=== PATIENT | male | born 1945 | race American Indian/Alaskan Native ===

== ENCOUNTER 2019-04-17 18:39 | Emergency (ER) | payer MEDICARE, OTHER ==
[~2019-04-17] VITALS: Ht 170.2 cm; Wt 91.2 kg
--- OUTSIDE RECORDS SUMMARY | ~2019-04-17 | XMS | Encounter Summary ---
Demographics + + + | Address | [address] | | | [place] [address] | + + + | Home Phone | | + + + | Preferred Language | Unknown | + + + | Marital Status | Single | + + + | Alevism Affiliation | 1041 | + + + | Race | Unknown | + + + | Ethnic Group | Unknown | + + + Author + + + | Author | [facility] | | | and [place] | + + + | Organization | [facility] | | | and [place] | + + + | Address | Unknown | + + + | Phone | Unavailable | + + + Support + + +---------+ + | Name | Relationship | Address | Phone | + + +---------+ + | Guy Bell | ECON | Unknown | | + + +---------+ + Care Team Providers + +------+ + | Care It Systems Administrator Name | Role | Phone | + +------+ + | Dominic Carlin MD | PCP | | + +------+ + Reason for Referral Diagnostic/Screening (Routine) +--------+--------+ + + + + | Status | Reason | Specialty | Diagnoses / | Referred By | Referred To | | | | | Procedures | Contact | Contact | +--------+--------+ + + + + | Closed | | Radiology | Diagnoses | Wes Melvin | [facility] | | | | | Cervical | MD [address] | [address] | | | | | spondylosis | [address] | [place], | | | | | with | [place], | [place] | | | | | myelopathy | [place] [address] | [address] | | | | | Cervical | Phone: | Phone: | | | | | cord | [phone] | [phone] | | | | | myelomalacia | Fax: | Fax: | | | | | (HCC) | [phone] | [phone] | | | | | Degenerative | | | | | | | disc | | | | | | | disease, | | | | | | | cervical | | | | | | | Procedures | | | | | | | MRI Cervical | | | | | | | Spine wo | | | | | | | Contrast | | | +--------+--------+ + + + + Reason for Visit Diagnostic/Screening (Routine) +--------+--------+ + + + + | Status | Reason | Specialty | Diagnoses / | Referred By | Referred To | | | | | Procedures | Contact | Contact | +--------+--------+ + + + + | Closed | | Radiology | Diagnoses | Wes Melvin | [facility] | | | | | Cervical | MD [address] | [address] | | | | | spondylosis | [address] | [place], | | | | | with | [facility], | [place] | | | | | myelopathy | [place] [address] | [address] | | | | | Cervical | Phone: | Phone: | | | | | cord | [phone] | [phone] | | | | | myelomalacia | Fax: | Fax: | | | | | ([facility]) | [phone] | [phone] | | | | | Degenerative | | | | | | | disc | | | | | | | disease, | | | | | | | cervical | | | | | | | Procedures | | | | | | | MRI Cervical | | | | | | | Spine wo | | | | | | | Contrast | | | +--------+--------+ + + + + Encounter Details +--------+ + + + + | Date | Type | Department | Care Team | Description | +--------+ + + + + | 01/30/ | Hospital | [facility] | Wes Melvin MD | Cervical spondylosis | | 2013 | Encounter | MED CTR MRI [address] | with myelopathy; | | | | [place], | [place] [address] | Cervical cord | | | | [place] [address] | [phone] | myelomalacia ([facility]); | | | | [phone] | | Degenerative disc | | | | | | disease, cervical | +--------+ + + + + Social [...] +---------+ + | Yes | | | Moderately | + + +---------+ + + + + | Sex Assigned at | Date Recorded | | | | + + + | Not on file | | + + + + + + + | Job Start Date | Occupation | Industry | + + + + | Not on file | Not on file | Not on file | + + + + + + + + | Travel History | Travel Start | Travel End | + + + + + + | No recent travel history available. | + + documented as of this encounter Medications at Time of Discharge + + + +---------+--------+ + | Medication | Sig | Dispensed | Refills | Start | End Date | | | | | | Date | | + + + +---------+--------+ + | ibuprofen (ADVIL, | Take 400 mg by mouth | | 0 | | | | MOTRIN) 400 mg | every 6 hours as | | | | 5 | | tablet | needed. | | | | | + + + +---------+--------+ + documented as of this encounter Plan of Treatment Not on filedocumented as of this encounter Procedures + +--------+ + + + | Procedure Name | Priori | Date/Time | Associated Diagnosis | Comments | | | ty | | | | + +--------+ + + + | MRI CERVICAL SPINE | Routin | 01/30/2014 | Cervical | Results for this | | WO CONTRAST | e | 4:02 PM | spondylosis with | procedure are in the | | | | PDT | myelopathy Cervical | results section. | | | | | cord myelomalacia | | | | | | (HCC) Degenerative | | | | | | disc disease, | | | | | | cervical | | + +--------+ + + + documented in this encounter Results MRI Cervical Spine wo Contrast (01/30/2014 4:02 PM PDT) + + | Specimen | + + | | + + + + + | Narrative | Performed At | + + + | MRI CERVICAL SPINE WITHOUT CONTRAST: 01/30/2014 3:32 PM CLINICAL | [facility] | | HISTORY: Cervical myelopathy COMPARISON: 05/16/2013 TECHNIQUE: | LAB | | Multiplanar, multisequence imaging of the cervical spine is | | | performed. FINDINGS:Mild reversal of the normal cervical lordotic | | | curve. Minimal anterolisthesis of C3 on C4 and retrolisthesis of C4 | | | on C5 with no other focal loss of alignment. Vertebral body heights | | | are normal. Large anterior osteophytes are present, increasing | | | anterior to posterior dimension of C4, C5 and C6. Chronic reactive | | | endplate changes at C4-C5. Stable hemangioma in T2. No other areas of | | | abnormal marrow signal. High signal focus in the cervical cord at | | | C5. This is unchanged from prior. No new areas of cord signal | | | abnormality. Included posterior fossa contents are unremarkable. No | | | adjacent soft tissue abnormality. Level by level analysis follows. | | | C2-C3: Severe left facet generative change and hypertrophy producing | | | left foraminal narrowing, stable from prior. No disc herniation. | | | C3-C4: Moderate broad-based disc bulge with posterior osteophytic | | | ridging and uncinate hypertrophy. Moderate posterior facet | | | degenerative changes. This disc osteophyte complex produces | | | moderately severe central canal stenosis (7-8mm). Appearances are | | | similar to prior. C4-C5: Severe disc space narrowing with | | | posterior osteophytic ridging and uncinate hypertrophy. Moderate | | | facet degenerative change. Minimal disc contribution, but the | | | spondylitic changes produce a severe central canal stenosis with | | | bilateral severe foraminal narrowing. No change from prior. C5-C6: | | | Disc space narrowing with small broad-based disc bulge. Bilateral | | | uncinate hypertrophy left greater than right. Moderate facet | | | degenerative change. These features combine to produce moderately | | | severe central canal stenosis and severe left foraminal narrowing | | | with moderate narrowing on the right. Left foraminal narrowing | | | appears more severe than on the prior study though this may be partly | | | technique related. C6-C7: Moderate broad-based disc bulge and | | | uncinate hypertrophy left greater than right. No central canal | | | stenosis but moderately severe bilateral foraminal narrowing, more | | | severe on the left. C7-T1: Disc space narrowing with moderate | | | broad-based disc bulge and uncinate hypertrophy. No central canal | | | stenosis. Moderate right foraminal narrowing. Broad-based disc | | | bulges are also seen at T1-T2 and T2-T3, without central canal | | | compromise IMPRESSION - 1. Stable focus of myelopathic signal | | | change in the cervical cord at the C5 level. 2. Multilevel | | | degenerative disc and spondylitic changes. These are most severe at | | | C4-C5 where severe central canal stenosis and bilateral severe | | | foraminal narrowing are present. Severe foraminal narrowing on the | | | left at C5-C6 and bilaterally at C6-C7. Overall appearances are | | | stable when compared to prior. Dictated and Signed by: Yash Esteban MD Electronically signed: 01/31/2014 9:28 AM | | + + + + + | Procedure Note | + + | [place], Rad Results In - 01/31/2014 9:31 AM PDT MRI CERVICAL SPINE WITHOUT CONTRAST: | | 01/30/2014 3:32 PMCLINICAL HISTORY: Cervical myelopathyCOMPARISON: 05/16/2013TECHNIQUE: | | Multiplanar, multisequence imaging of the cervical spine isperformed.FINDINGS:Mild | | reversal of the normal cervical lordotic curve. Minimalanterolisthesis of C3 on C4 and | | retrolisthesis of C4 on C5 with no other focalloss of alignment. Vertebral body heights | | are normal. Large anterior osteophytesare present, increasing anterior to posterior | | dimension of C4, C5 and C6.Chronic reactive endplate changes at C4-C5. Stable hemangioma | | in T2. No otherareas of abnormal marrow signal.High signal focus in the cervical cord | | at C5. This is unchanged from prior. Nonew areas of cord signal abnormality. Included | | posterior fossa contents areunremarkable. No adjacent soft tissue abnormality. Level by | | level analysisfollows.C2-C3: Severe left facet generative change and hypertrophy | | producing leftforaminal narrowing, stable from prior. No disc herniation.C3-C4: Moderate | | broad-based disc bulge with posterior osteophytic ridging anduncinate hypertrophy. | | Moderate posterior facet degenerative changes. This discosteophyte complex produces | | moderately severe central canal stenosis (7-8mm).Appearances are similar to prior.C4-C5: | | Severe disc space narrowing with posterior osteophytic ridging anduncinate hypertrophy. | | Moderate facet degenerative change. Minimal disccontribution, but the spondylitic | | changes produce a severe central canalstenosis with bilateral severe foraminal | | narrowing. No change from prior.C5-C6: Disc space narrowing with small broad-based disc | | bulge. Bilateraluncinate hypertrophy left greater than right. Moderate facet | | degenerativechange. These features combine to produce moderately severe central | | canalstenosis and severe left foraminal narrowing with moderate narrowing on theright. | | Left foraminal narrowing appears more severe than on the prior studythough this may be | | partly technique related.C6-C7: Moderate broad-based disc bulge and uncinate hypertrophy | | left greaterthan right. No central canal stenosis but moderately severe bilateral | | foraminalnarrowing, more severe on the left.C7-T1: Disc space narrowing with moderate | | broad-based disc bulge and uncinatehypertrophy. No central canal stenosis. Moderate | | right foraminal narrowing.Broad-based disc bulges are also seen at T1-T2 and T2-T3, | | without central canalcompromiseIMPRESSION -1. Stable focus of myelopathic signal change | | in the cervical cord at the Z6wrbyp.2. Multilevel degenerative disc and spondylitic | | changes. These are most severeat C4-C5 where severe central canal stenosis and bilateral | | severe foraminalnarrowing are present. Severe foraminal narrowing on the left at C5-C6 | | andbilaterally at C6-C7. Overall appearances are stable when compared to prior.Dictated | | and Signed by: Yash Esteban MD Electronically signed: 01/31/2014 9:28 AM | |C5-C6: Disc space narrowing with small broad-based disc bulge. Bilateral | |uncinate hypertrophy left greater than right. Moderate facet degenerative | |change. These features combine to produce moderately severe central canal | |stenosis and severe left foraminal narrowing with moderate narrowing on the | |right. Left foraminal narrowing appears more severe than on the prior study | |though this may be partly technique related. | | | |C6-C7: Moderate broad-based disc bulge and uncinate hypertrophy left greater | |than right. No central canal stenosis but moderately severe bilateral foraminal | |narrowing, more severe on the left. | | | |C7-T1: Disc space narrowing with moderate broad-based disc bulge and uncinate | |hypertrophy. No central canal stenosis. Moderate right foraminal narrowing. | | | |Broad-based disc bulges are also seen at T1-T2 and T2-T3, without central canal | |compromise | | | |IMPRESSION - | |1. Stable focus of myelopathic signal change in the cervical cord at the C5 | |level. | | | |2. Multilevel degenerative disc and spondylitic changes. These are most severe | |at C4-C5 where severe central canal stenosis and bilateral severe foraminal | |narrowing are present. Severe foraminal narrowing on the left at C5-C6 and | |bilaterally at C6-C7. Overall appearances are stable when compared to prior. | | | |Dictated and Signed by: Yash Esteban MD | | Electronically signed: 01/31/2014 9:28 AM | + + + +---------+ + + | Performing | Address | City/State/Zipcode | Phone Number | | Organization | | | | + +---------+ + + | [facility] | | | [phone] | + +---------+ + + | [facility] | | | [phone] | + +---------+ + + documented in this encounter Visit Diagnoses + + | Diagnosis | + + | Cervical spondylosis with myelopathy | + + | Cervical cord myelomalacia (HCC) Other myelopathy | + + | Degenerative disc disease, cervical Degeneration of cervical intervertebral disc | + + documented in this encounter"
--- OUTSIDE RECORDS SUMMARY | ~2019-04-17 | XMS | Encounter Summary ---
Demographics + + + | Address | [address] | | | [place] [address] | + + + | Home Phone | | + + + | Preferred Language | Unknown | + + + | Marital Status | Single | + + + | Protestant Affiliation | Unknown | + + + | Race | or | + + + | Ethnic Group | Not or | + + + Author + + + | Author | [facility] | + + + | Organization | [facility] | + + + | Address | Unknown | + + + | Phone | Unavailable | + + + Support + + +---------+ + | Name | Relationship | Address | Phone | + + +---------+ + | Gautam Ray | ECON | Unknown | | + + +---------+ + Care Team Providers + +------+ + | Care Nurse Intern Name | Role | Phone | + +------+ + PCP | Unavailable | + +------+ + Reason for Visit + + + | Reason | Comments | + + + | Return Patient | left shoulder | + + + Consultation (Routine) +--------+--------+ + + + + | Status | Reason | Specialty | Diagnoses / | Referred By | Referred To | | | | | Procedures | Contact | Contact | +--------+--------+ + + + + | Closed | | Orthopedics | | Non-[facility] | [place], | | | | | | Epic Dept | MD Jaswant | | | | | | | [address] | | | | | | | [address] | | | | | | | [place], | | | | | | | [place] | | | | | | | [address] | | | | | | | Phone: | | | | | | | [phone] | | | | | | | Fax: | | | | | | | [phone] | +--------+--------+ + + + + Encounter Details +--------+---------+ + + + | Date | Type | Department | Care Team | Description | +--------+---------+ + + + | 06/14/ | Office | Orthopaedics at | Jaswant Angeles MD | Unspecified | | 2008 | Visit | [facility] [address] | [address] | Disorders of Bursae | | | | Ave Mailcode: CH[address]A | [address] | and Tendons in | | | | [facility] | [place], [place] | Shoulder Region; | | | | and Healing, | [address] | Radicular Syndrome | | | | Building | [phone] | of Upper Limbs | | | | Floor [place], [place] | | | | | | [address] | | | | | | [phone] | | | +--------+---------+ + + + Social History [...] documented as of this encounter Progress Notes Jaswant Angeles MD - 07/03/2008 5:05 PM PSTThis patient returns for follow-up of his left deltoid dysfunction. His nerve conduction studies suggest a cervical radiculopathy over an axillary neuropathy. An MRI was reviewed and was interpreted as showing 1. Multilevel degenerative changes of the cervical spine are present which are worst at C4-C5 where there is moderate to severe spinal canal stenosis and a small amount of cord signal in the cervical cord just inferior to the stenosis. The spinal canal appears congenitally small which contributes to mild narrowing throughout. 2. Diffuse left greater than right neural foraminal narrowing is present which is largely secondary to left-sided greater than right sided uncal vertebral joint hypertrophy. I discussed his case with Dr Cueva who saw him on May 29. He agreed to see the patient back for another assessment as I really think that his neck is a more likely source of his probl ems than a peripheral axilllary nerve injury. I will be happy to see him back in concert wi or following Dr Cueva. An MRI of the shoulder was also ordered to evaluate for a rotator cuff tear. 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
--- OUTSIDE RECORDS SUMMARY | ~2019-04-17 | XMS | Encounter Summary ---
Demographics + + + | Address | [address] | | | [place] [address] | + + + | Home Phone | | + + + | Preferred Language | Unknown | + + + | Marital Status | Single | + + + | Congregational Affiliation | 1041 | + + + | Race | Unknown | + + + | Ethnic Group | Unknown | + + + Author + + + | Author | [facility] | | | and [place] | + + + | Organization | [facility] | | | and [...] Team Providers + +------+ + | Care Winder Tender Name | Role | Phone | + +------+ + PCP | Unavailable | + +------+ + Encounter Details +--------+ + + + + | Date | Type | Department | Care Team | Description | +--------+ + + + + | 08/31/ | Hospital | [facility] | Joe, | Unspecified Backache | | 2009 | Encounter | [address] | MD Nell [address] | | | [address] | [facility] | | | | | [place], [place] | [address] [place], | | | | | [address] | [place] [address] | | | | | [phone] | [phone] | | | | | | | [...] Performed At | + + + | [id number] [facility] | | | [facility] [address] | | | , RADIOLOGY | | | Patient Name: ISA OSMAN Date of : 1945 | | | Medical Record: [id number] Account: [id number] O/P// | | | Exam Date/Time: 08/31/2009 04:15 P Ordering | | | Provider: NELL MUSE Detail: 1430 / / [facility] Exam | | | Description: MRI LUMBAR [...] exiting right L1 nerve root. There is cnvx-fn-jwjvsbtw left neural | | | foraminal narrowing. [...] lateral | | | recesses. There is bmgapsqq-hm-rwmnut right and severe left neural | | [...] | bilateral L4 nerve roots. There is hhbaeupc-mt-fnwjjj left and severe | | | right [...] AP dimension. There is severe left and gujlrrks-rr-jqbbdn right | | | neural foraminal narrowing that is likely impinging on the exiting | | | bilateral L4 nerve roots. L5-S1: There is disk desiccation with | | | wajpnroa-gq-hhqdxp disk space narrowing and associated degenerative | [...] greatest on the left side. There is vvjvlqwb-ts-ebgfie right | | | with severe left [...] and L5 nerve roots. 3. Please see vyyjg-sq-jqkhq | | | discussion above. Read by AURDA WILKINS DO | | | 09/02/2009 11:17 A Electronically Signed by AUDRA WILKINS DO | | | 09/02/2009 09:09 P A | | | 04:03 P BALBINA/brisa/[id number]/ cc: MD AUDRA PAIGE | | | DO [place] | | + + + + + | Procedure Note | + + | [place], Rad Conversion - 01/08/2019 4:40 PM PDT | | [id number] | | [facility] | | [facility] [address] | | , | | RADIOLOGY | | | | Patient Name: ISA OSMAN | | Date of : 1945 | | Medical Record: [id number] | | Account: [id number] | | O/P// | | | | | | Exam Date/Time: 08/31/2009 04:15 P | | Ordering Provider: NELL MUSE | | Order Detail: 1430 / [...] exiting right L1 nerve root. There is xsqt-ty-cbkvovkz left neural | | foraminal narrowing. | [...] narrowing of both lateral recesses. There is guixikue-oo-texcjn right | | and severe left neural [...] L4 nerve roots. There is | | luqdthom-ee-bubgwn left and severe right neural foraminal narrowing [...] AP dimension. There is severe left and ctzdgwgp-ud-dlilef right | | neural foraminal narrowing that is likely impinging on the exiting | | bilateral L4 nerve roots. | | | | L5-S1: There is disk desiccation with pvztboae-ol-nyabpw disk space | | narrowing and associated [...] greatest on the left side. There is eeyeyyaq-sl-xkjpbe | | right with severe left neural [...] nerve roots. | | 3. Please see alktx-uq-dvbnw discussion above. | | | | | | | | | | | | | | Read by | | AUDRA WILKINS DO 09/02/2009 11:17 A | | Electronically Signed by | | AUDRA WILKINS DO 09/02/2009 09:09 P | | | | A | | P | | BALBINA/[email or web address]/[id number]/ | | cc: NELL MUSE MD | | AUDRA WILKINS DO | + + documented in this encounter Visit Diagnoses + + | Diagnosis | + + | Backache, unspecified | + + documented in this encounter"
--- OUTSIDE RECORDS SUMMARY | ~2019-04-17 | XMS | Encounter Summary ---
Demographics + + + | Address | [address] | | | [place] [address] | + + + | Home Phone | | + + + | Preferred Language | Unknown | + + + | Marital Status | Single | + + + | Restorationism Affiliation | 1041 | + + + | Race | Unknown | + + + | Ethnic Group | Unknown | + + + Author + + + | Author | [facility] | | | and [place] | + + + | Organization | [facility] | | | and [place] [...] Team Providers + +------+ + | Care Environmental Geologist Name | Role | Phone | + +------+ + | Dominic Carlin MD | PCP | | + +------+ + Encounter Details +--------+ + + + + | Date | Type | Department | Care Team | Description | +--------+ + + + + | 12/22/ | Orders Only | [facility] | Provider, | | | 2018 | | [facility] GENER[facility] OP | MD [address] | | | | | [address] | [address] | | | | | [address] [place], [place] | [place] [address] | | | | | [address] | | | | | | [phone] | | | +--------+ + + + [...]
--- OUTSIDE RECORDS SUMMARY | ~2019-04-17 | XMS | Encounter Summary ---
Demographics + + + | Address | [address] | | | [place] [address] | + + + | Home Phone [...] | Organization | [facility] | | | and [place] [...] Team Providers + +------+ + | Care Production Worker Name | Role | Phone | + +------+ + | Dominic Carlin MD | PCP | | + +------+ + Reason for Visit + + + | Reason | Comments | + + + | Medication Refill | | + + + Encounter Details +--------+--------+ + + + | Date | Type | Department | Care Team | Description | +--------+--------+ + + + | 07/03/ | Refill | [facility] [place] | Haroldo King | Medication Refill | | 2015 | | NEUROSURGERY [address] | [address] | | | | | [address] | [address] | | | | | [place], [place] | [place] [address] | | | | | [address] | [phone] | | | | | [phone] | | | +--------+--------+ + + + Social History + +-------+ [...] filedocumented as of this encounter Visit Diagnoses + + | Diagnosis | + + | S/P cervical spinal fusion - Primary Arthrodesis status | + + documented in this encounter"
--- OUTSIDE RECORDS SUMMARY | ~2019-04-17 | XMS | Encounter Summary ---
Demographics + + + | Address | [address] | | | [place] [address] | + + + | Home Phone | | + + + | Preferred Language | Unknown | + + + | Marital Status | Single | + + + | Gnosticism Affiliation | Unknown | + + + | Race | or | + + + | Ethnic Group | Not or | + + + Author + + + | Author | [facility] | + + + | Organization | [facility] | + + + | Address | Unknown | + + + | Phone | Unavailable | + + + Support + + +---------+ + | Name | Relationship | Address | Phone | + + +---------+ + | Gautam Ray | ECON | Unknown | | + + +---------+ + Care Team Providers + +------+ + | Care Cotton Factor Name | Role | Phone | + +------+ + PCP | Unavailable | + +------+ + Encounter Details +--------+ + + + + | Date | Type | Department | Care Team | Description | +--------+ + + + + | 06/29/ | Documentati | Orthopaedics at | Oscar Mcclellan MD | | | 2008 | on | [facility] [address] | [address] | | | | | [place] Mailcode: CH12A | Angelica Guerin [place], | | | | | [facility] | [place] [address] | | | | | and Healing, | [phone] | | | | | | | | | | | Floor [place], [place] | | | | | | [address] | | | | | | [phone] | | | +--------+ + + + [...]
--- OUTSIDE RECORDS SUMMARY | ~2019-04-17 | XMS | Encounter Summary ---
Demographics + + + | Address | [address] | | | [place] [address] | + + + | Home Phone | | + + + | Preferred Language | Unknown | + + + | Marital Status | Single | + + + | Latter-Day Affiliation | 1041 | + + + | Race | Unknown | + + + | Ethnic Group | Unknown | + + + Author + + + | Author | [facility] | | | and [place] | + + + | Organization | [facility] | | | and [place] [...] Team Providers + +------+ + | Care Inspector Hairspring Name | Role | Phone | + +------+ + | Dominic Carlin MD | PCP | | + +------+ + Reason for Visit + + + | Reason | Comments | + + + | Appointment | | + + + Encounter Details +--------+ + + + + | Date | Type | Department | Care Team | Description | +--------+ + + + + | 12/22/ | Telephone | [facility] | Wes Melvin MD | Appointment | | 2013 | | NEUROSURGERY [address] | [address] | | | | | [address] [facility] [address] | [place] [address] | | | | | [place] | [phone] | | | | | [address] | | | | | | [phone] | | | +--------+ + + + [...]
--- OUTSIDE RECORDS SUMMARY | ~2019-04-17 | XMS | Encounter Summary ---
Demographics + + + | Address | [address] | | | [place] [address] | + + + | Home Phone | | + + + | Preferred Language | Unknown | + + + | Marital Status | Single | + + + | Pentecostalism Affiliation | 1041 | + + + | Race | Unknown | + + + | Ethnic Group | Unknown | + + + Author + + + | Author | [facility] | | | and [place] | + + + | Organization | [facility] | | | and [place] [...] Team Providers + +------+ + | Care Labor Economics Teacher Name | Role | Phone | [...] [facility] | | | | | Back pain | MD [address] | [address] | | | | | Procedures | [address] | [place], | | | | | MRI Lumbar | [place], | [place] | | | | | Spine wo | [place] [address] | [address] | | | | | Contrast | Phone: | Phone: | | | | | | [phone] | [phone] | | | | | | Fax: | Fax: | | | | | | [phone] | [phone] | +--------+--------+ + + + + Diagnostic/Screening (Routine) +--------+--------+ + + + + | Status | Reason | Specialty | Diagnoses / | Referred By | Referred To | | | | | Procedures | Contact | Contact | +--------+--------+ + + + + | Closed | | Radiology | Diagnoses | Wes Melvin | [facility] | | | | | Cervical | MD [address] | [address] | | | | | spondylosis | [address] | [place], | | | | | with | [facility], | [place] | | | | | myelopathy | [place] [address] | [address] | | | | | Cervical | Phone: | Phone: | | | | | cord | [phone] | [phone] | | | | | myelomalacia | Fax: | Fax: | | | | | (HCC) | [phone] | [phone] | | | | | Degenerative | [...] | Comments | + + + | New Patient | Neck Pain | + + + Evaluate & Treat (Routine) +--------+--------+ + + + + | Status | Reason | Specialty | Diagnoses / | Referred By | Referred To | | | | | Procedures | Contact | Contact | +--------+--------+ + + + + | Closed | | Neurosurgery | Diagnoses | Raegan, | Wes Melvin | | | | | Spinal | Dominic Cuevas MD | [place], [address] | | | | | stenosis in | [address] | | | | | cervical | [place], | [place], [place] | | | | | region | [place] | [address] | | | | | Cervical | [address] | Phone: | | | | | nerve root | Phone: | [phone] | | | | | impingement | [phone] | Fax: | | | | | SPINAL | Fax: | [phone] | | | | | STENOSIS C4, | [phone] | | | | | | WITH NERVE | | | | | | | IMPINGEMENT | | | | | | | OF C3-C6 | | | | | | | Procedures | | | | | | | ME OFFICE | | | | | | | CONSULTATION | | | | | | | NEW/ESTAB | | | | | | | PATIENT 60 | | | | | | | MIN | | | +--------+--------+ + + + + Encounter Details +--------+---------+ + + + | Date | Type | Department | Care Team | Description | +--------+---------+ + + + | 01/19/ | Office | [facility] | Wes Melvin MD | Cervical spondylosis | | 2013 | Visit | NEUROSURGERY [address] | [address] | with myelopathy | | | | [address] | [place] [address] | (Primary Dx); | | | | [place] | [phone] | Cervical cord | | | | [address] | | myelomalacia ([facility]); | | | | [phone] | | Degenerative disc | | | | | | disease, cervical; | | | | | | Back pain | +--------+---------+ + + + Social History [...] + + + | Blood Pressure | 151/80 | 01/19/2014 9:57 AM | | | | | PDT | | + + + + + | Pulse | 73 | 01/19/2014 9:57 AM | | | | | PDT | | + + + + + | Temperature | - | - | | + + + + + | Respiratory Rate | 17 | 01/19/2014 9:57 AM | | | | | PDT | | + + + + + | Oxygen Saturation | - | - | | + + + + + | Inhaled Oxygen | - | - | | | Concentration | | | | + + + + + | Weight | 97.5 kg (215 lb) | 01/19/2014 9:57 AM | | | | | PDT | | + + + + + | Height | 170.2 cm (5' 7") | 01/19/2014 9:57 AM | | | | | PDT | | + + + + + | Body Mass Index | 33.67 | 01/19/2014 9:57 AM | | | | | PDT | | + + + + + documented in this encounter Patient Instructions Patient Instructions Wes Melvin MD - 01/19/2014 10:36 AM PDTWe discussed the option for an Anterior Cervical Discectomy and Fusion (ACDF). You can research this procedure more by going to: [email or web address] Click the Treatment Options link on the left column. Then, look for Anterior Cervical Discectomy and Fusion (ACDF). documented in this encounter Progress Notes Wes Melvin MD - 01/19/2014 9:08 AM PDTFormatting of this note might be different from t he original. Wes Melvin MD [address] [place] [address], [address] [place] [address] FAX: NEUROSURGERY HISTORY AND PHYSICAL EXAMINATION CHIEF COMPLAINT: Chief Complaint Patient presents with New Patient Neck Pain HISTORY OF PRESENT ILLNESS: The patient is a 68 y.o. male with the complaint of back pain and leg pain that began over 6 months ago. The symptoms began to worsen especially in his l eft leg. The symptoms have been gradually worsening. He rates the pain as mild to severe d epending on what he is doing. The symptoms are continuous. He describes the pain as aching , sharp and shooting. The pain moves down from his back into his posterolateral lower leg. He also reports neck pain and hand clumsiness. His symptoms improve with rest. His symptoms worsen with standing, walking, bending and twisting. He has tried no conservative measures recently. PAST MEDICAL HISTORY: Past Medical History Diagnosis Date High blood pressure High cholesterol PAST SURGICAL HISTORY: Past Surgical History Procedure Date Carpal tunnel release Both Hands 12/28 CURRENT MEDICATIONS: Current Outpatient Prescriptions Medication Sig Dispense Refill ibuprofen (ADVIL, MOTRIN) 400 mg tablet Take 400 mg by mouth every 6 hours as needed. ALLERGIES: No Known Allergies SOCIAL HISTORY: The patient reports that he has never smoked. He has never used smokeless tobacco. He repo rts that he drinks alcohol. He reports that he does not use illicit drugs. FAMILY HISTORY: Family History Problem Relation Age of Onset Heart defect Father Heart defect Brother Diabetes Brother Kidney disease Brother REVIEW OF SYSTEMS: GENERALLY: No fever, no night sweats, no anemia, no fatigue, no recent profound weight ch anges. EYES: No eye problems, no use of corrective lenses, no eye injury, no double vision, no bl indness. EARS, NOSE, AND THROAT: No changes in taste or smell, no hearing difficulty, no ringing in the ears, no ear drainage, positive for dizziness, no voice changes, no difficulty swallowi ng, no significant snoring, no sleep apnea, no sinus problems, no major dental work. NEUROLOGICALLY: Please see the review of systems discussed above in the history of present illness. In addition, the patient has numbness/pain of legs, weakness, coordination diffic ulty, and change in walk. PSYCHIATRIC: No depression, no sleep disorders, no anxiety, no bipolar disorder, no psycho tic episodes. CARDIOVASCULAR: No heart attacks, no heart murmur, no heart fluttering, no chest pain, no ankle swelling. LUNG DISEASE: No shortness of breath, no cough, no tuberculosis, no bloody cough, no asth ma, no emphysema/COPD. GASTROINTESTINAL: No bowel disease, no nausea or vomiting, no rectal bleeding, no constipa tion, no stool incontinence, no liver disease, no gallbladder disease, no abdominal pain, no ulcers. KIDNEY DISEASE: No urinary frequency, no painful or difficult urination, no incontinence. ENDOCRINE: No diabetes, no thyroid disease, no osteopenia or osteoporosis, no breast drain age. SKIN: No breast lumps, no skin changes, no rashes, no itches. HEMATOLOGIC/LYMPHATIC: No enlarged lymph nodes, no easy or unusual bleeding, no personal h istory of cancer. RHEUMATOLOGIC: No joint arthritis, no rheumatoid arthritis. PHYSICAL EXAMINATION: Blood pressure 151/80, pulse 73, resp. rate 17, height 1.702 m (5' 7"), weight 97.523 kg (2 15 lb). Body mass index is 33.67 kg/(m^2). GENERAL: Buck Bell is in no acute distress with unlabored respirations. The gino carolina does appear uncomfortable throughout the exam today. HEENT: HEAD/FACE: EYES: EARS: NASOPHARNYX: OROPHARNYX: Normocephalic and atraumatic. There are no areas of recent trauma. Normal sclerae without icterus. No drainage or tenderness. Clear without drainage. Clear without erythema. NECK (ANTERIOR): Supple without palpable masses. CHEST: Clear to ausculation without crackles or wheeze. HEART: Regular rate and rhythm without murmurs. ABDOMEN: Soft, non-tender, non-distended, and without palpable masses. The patient is obes e. SPINE: There is tenderness in the midline of the cervical spine. EXTREMITIES: No cyanosis, clubbing, or edema. Distal pulses are palpable. He has bilatera l CT scars. NEUROLOGICAL EXAM: MENTAL STATUS: The patient is awake, alert, and oriented. He follows simple and complex commands. He speech is fluent, he comprehends speech well, and he repeats well. 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 CRANIAL NERVES: II: Acuity is intact. Burris are full to confrontation. III, IV, : The pupils are reactive. Extraocular movements are intact. No ptosis is note d. V: Facial sensation is intact and symmetric. VII: Facial movements are symmetric. VIII: Hearing is intact bilaterally. IX, X: The uvula and palate move appropriately. XI: Shrug is equal bilaterally. XII: Tongue protrusion is midline. MOTOR EXAM: (5 IS NORMAL) * Indicates pain limited MUSCLE/ MOVEMENT: RIGHT LEFT Deltoids 5 2 Biceps 5 3 Triceps 5 5 Wrist Flexion 5 4 Wrist Extension 5 4 Median Intrinsics 5 4 Ulnar Intrinsics 5 4 Manufactured Buildings Supervisor Strength 5 4 Hip Flexion 4 4 Hip Extension 5 5 Knee Flexion 5 5 Knee Extension 5 5 Dorsiflexion 5 5 Extensor Hallicus Longus 5 5 Plantarflexion 5 5 SENSORY EXAM: Sensory exam shows no diminished sensation to light touch or pain throughout the upper and lower extremities. REFLEXES: (2 OR 2+ IS NORMAL) REFLEX: RIGHT LEFT BICEPS ABSENT ABSENT BRACHIORADIALIS ABSENT ABSENT TRICEPS ABSENT ABSENT PATELLAR ABSENT ABSENT ACHILLES ABSENT ABSENT SANDERS'S ABSENT ABSENT PLANTAR ABSENT ABSENT GAIT: Gait is steady. RADIOGRAPHIC REVIEW: The patient's imaging was reviewed in detail with the patient today during the visit. The images show severe cervical stenosis from C3-C7 with cord changes. DDD changes are present. ASSESSMENT: NEUROSURGICAL DIAGNOSES: Encounter Diagnoses Name Primary? Cervical spondylosis with myelopathy Yes Cervical cord myelomalacia (HCC) Degenerative disc disease, cervical Back pain GENERAL DIAGNOSES: Past Medical History Diagnosis Date High blood pressure High cholesterol PLAN: It was a pleasure meeting and evaluating this patient today, and I greatly appreciate the r lacie. The patient has severe cervical disease with cord compression and cord changes. I had a lengthy discussion with the patient about his options for care including surgical a nd non-surgical options. I recommended we get a new cervical and lumbar MRI given his worse claudia. I am also authorizing a cervical fusion for him to expedite his care. I am concerned that he will eventually need surgery at both sites. ELECTRONICALLY SIGNED BY: Wes Melvin MD, 01/19/2014 10:32 documented in this encou nter Plan of Treatment Not on filedocumented as of this encounter Results MRI Lumbar Spine wo Contrast (01/30/2014 4:20 PM PDT) + + | Specimen | + + | | + + + + + | Narrative | Performed At | + + + | MRI LUMBAR SPINE WITHOUT CONTRAST: 01/30/2014 4:00 PM CLINICAL | [facility] | | HISTORY: back and left leg pain COMPARISON: None TECHNIQUE: In | LAB | | the 3T scanner multiplanar, multisequence imaging of the lumbar | | | spine is performed. FINDINGS: There are 5 lumbar-type vertebral | | | bodies.There is accentuation of the normal lumbar lordosis, with the | | | L5-S1 disc interspace be oriented almost coronally. 6 mm of | | | anterolisthesis of L4 on L5 and 5 mm of anterolisthesis of L5 on S1. | | | Vertebral body heights are normal. Large endplate osteophytes at each | | | level including some posterior osteophytic ridging. Multilevel | | | chronic reactive endplate changes. Conus terminates at L1. Cauda | | | equina nerve roots are diffusely thickened. 2 cm left renal cyst. No | | | other paraspinous soft tissue abnormalities. Level by level analysis | | | follows. T12-L1: Moderate circumferential disc bulge. Mild facet | | | degenerative change. No central canal or foraminal stenosis. | | | L1-L2: Moderate broad-based disc bulge asymmetric to the right. | | | Moderate posterior facet degenerative change. Right posterolateral | | | endplate osteophyte. These changes are superimposed on | | | developmentally small canal to produce moderate central canal | | | stenosis and moderately severe right subarticular recess and | | | foraminal narrowing. L2-L3: Severe disc space narrowing with | | | moderate broad-based disc bulge. Severe facet degenerative changes, | | | ligamentum flavum thickening and vertebral endplate osteophytes. | | | Superimposed on a developmentally small canal these changes produce a | | | very severe central canal stenosis with compaction of the cauda | | | equina nerve roots. Bilateral severe foraminal narrowing. L3-L4: | | | Moderate to large broad-based disc bulge, with a right lateral | | | component. Moderately severe facet degenerative change and | | | hypertrophy and ligamentum flavum thickening. Again short pedicles | | | are present and the degenerative changes produce a severe central | | | canal stenosis and severe right foraminal narrowing. L4-L5: Severe | | | facet degenerative change and degenerative spondylolisthesis. | | | Moderate broad-based disc bulge. Severe central canal stenosis and | | | bilateral severe foraminal narrowing. L5-S1: Large broad-based | | | disc bulge and moderately severe facet degenerative changes. | | | Bilateral moderately severe foraminal narrowing without central canal | | | stenosis. IMPRESSION - 1. Multilevel severe degenerative disc | | | and spondylitic changes. Developmentally small canal with short | | | pedicles. This results in multilevel severe central canal stenosis | | | especially at L2-L3, L3-L4 and L4-L5. Marked compaction of the cauda | | | equina nerve roots with changes of compressive arachnoiditis. Also | | | multilevel severe foraminal narrowing. Dictated and Signed by: | | | Yash Esteban MD Electronically signed: 01/31/2014 9:47 AM | | + + + + + | Procedure Note | + + | [place], Rad Results In - 01/31/2014 9:50 AM PDT MRI LUMBAR SPINE WITHOUT CONTRAST: | | 01/30/2014 4:00 PMCLINICAL HISTORY: back and left leg painCOMPARISON: NoneTECHNIQUE: In | | the 3T scanner multiplanar, multisequence imaging of the lumbarspine is | | performed.FINDINGS: There are 5 lumbar-type vertebral bodies.There is accentuation of | | thenormal lumbar lordosis, with the L5-S1 disc interspace be oriented almostcoronally. 6 | | mm of anterolisthesis of L4 on L5 and 5 mm of anterolisthesis of L5on S1. Vertebral | | body heights are normal. Large endplate osteophytes at eachlevel including some | | posterior osteophytic ridging. Multilevel chronic reactiveendplate changes.Conus | | terminates at L1. Cauda equina nerve roots are diffusely thickened. 2 cmleft renal cyst. | | No other paraspinous soft tissue abnormalities. Level by levelanalysis follows.T12-L1: | | Moderate circumferential disc bulge. Mild facet degenerative change. Nocentral canal or | | foraminal stenosis.L1-L2: Moderate broad-based disc bulge asymmetric to the right. | | Moderateposterior facet degenerative change. Right posterolateral endplate | | osteophyte.These changes are superimposed on developmentally small canal to | | producemoderate central canal stenosis and moderately severe right subarticular | | recessand foraminal narrowing.L2-L3: Severe disc space narrowing with moderate | | broad-based disc bulge. Severefacet degenerative changes, ligamentum flavum thickening | | and vertebral endplateosteophytes. Superimposed on a developmentally small canal these | | changes producea very severe central canal stenosis with compaction of the cauda equina | | nerveroots. Bilateral severe foraminal narrowing.L3-L4: Moderate to large broad-based | | disc bulge, with a right lateral component.Moderately severe facet degenerative change | | and hypertrophy and ligamentumflavum thickening. Again short pedicles are present and | | the degenerative changesproduce a severe central canal stenosis and severe right | | foraminal narrowing.L4-L5: Severe facet degenerative change and degenerative | | spondylolisthesis.Moderate broad-based disc bulge. Severe central canal stenosis and | | bilateralsevere foraminal narrowing.L5-S1: Large broad-based disc bulge and moderately | | severe facet degenerativechanges. Bilateral moderately severe foraminal narrowing | | without central canalstenosis.IMPRESSION - 1. Multilevel severe degenerative disc and | | spondylitic changes. Developmentallysmall canal with short pedicles. This results in | | multilevel severe central canalstenosis especially at L2-L3, L3-L4 and L4-L5. Marked | | compaction of the caudaequina nerve roots with changes of compressive arachnoiditis. | | Also multilevelsevere foraminal narrowing.Dictated and Signed by: Yash Esteban MD | | Electronically signed: 01/31/2014 9:47 AM | |roots. Bilateral severe foraminal narrowing. | | | |L3-L4: Moderate to large broad-based disc bulge, with a right lateral component. | |Moderately severe facet degenerative change and hypertrophy and ligamentum | |flavum thickening. Again short pedicles are present and the degenerative changes | |produce a severe central canal stenosis and severe right foraminal narrowing. | | | |L4-L5: Severe facet degenerative change and degenerative spondylolisthesis. | |Moderate broad-based disc bulge. Severe central canal stenosis and bilateral | |severe foraminal narrowing. | | | |L5-S1: Large broad-based disc bulge and moderately severe facet degenerative | |changes. Bilateral moderately severe foraminal narrowing without central canal | |stenosis. | | | |IMPRESSION - | |1. Multilevel severe degenerative disc and spondylitic changes. Developmentally | |small canal with short pedicles. This results in multilevel severe central canal | |stenosis especially at L2-L3, L3-L4 and L4-L5. Marked compaction of the cauda | |equina nerve roots with changes of compressive arachnoiditis. Also multilevel | |severe foraminal narrowing. | | | |Dictated and Signed by: Yash Esteban MD | | Electronically signed: 01/31/2014 9:47 AM | + + + +---------+ + + | Performing | Address | City/State/Zipcode | Phone Number | | Organization | | | | + +---------+ + + | [facility] | | | [phone] | + +---------+ + + | [facility] | | | [phone] | + +---------+ + + MRI Cervical Spine wo Contrast (01/30/2014 4:02 [...] to prior. Dictated and Signed by: Yash Garcia | | MD Carlito Electronically signed: 01/31/2014 9:28 AM | | [...] | in the cervical cord at the [id number]. Multilevel degenerative disc and spondylitic | | [...] + | [facility] | | | [phone] | + +---------+ + + | [facility] | | | [phone] | + +---------+ + + documented in this encounter Visit Diagnoses + + | Diagnosis | + + | Cervical spondylosis with myelopathy - Primary | + + | Cervical cord myelomalacia (HCC) Other myelopathy | + + | Degenerative disc disease, cervical Degeneration of cervical intervertebral disc | + + | Back pain Backache, unspecified | + + documented in this encounter
--- OUTSIDE RECORDS SUMMARY | ~2019-04-17 | XMS | Encounter Summary ---
Demographics + + + | Address | [address] | | | [place] [address] | + + + | Home Phone | | + + + | Preferred Language | Unknown | + + + | Marital Status | Single | + + + | Caodaism Affiliation | 1041 | + + + | Race | Unknown | + + + | Ethnic Group | Unknown | + + + Author + + + | Author | [facility] | | | and [place] | + + + | Organization | [facility] | | | and [place] [...] Team Providers + +------+ + | Care Director Technical Name | Role | Phone | + +------+ + | Dominic Carlin MD | PCP | | + +------+ + Reason for Visit + + + | Reason | Comments | + + + | Follow-up | 12-weeks post-op | + + + Encounter Details +--------+---------+ + + + | Date | Type | Department | Care Team | Description | +--------+---------+ + + + | 12/25/ | Office | [facility] | Wes Melvin MD | S/P cervical spinal | | 2015 | Visit | NEUROSURGERY [address] | [address] | fusion (Primary Dx) | | | | [address] | [place] [address] | | | | | [place] | [phone] | | | | | [address] | | | | | | [phone] | | | +--------+---------+ + + + [...] + + + | Blood Pressure | 151/83 | 12/25/2014 8:29 AM | | | | | PDT | | + + + + + | Pulse | 74 | 12/25/2014 8:29 AM | | | | | PDT | | + + + + + | Temperature | - | - | | + + + + + | Respiratory Rate | 20 | 12/25/2014 8:29 AM | | | | | PDT | | + + + + + | Oxygen Saturation | - | - | | + + + + + | Inhaled Oxygen | - | - | | | Concentration | | | | + + + + + | Weight | 95.3 kg (210 lb) | 12/25/2014 8:29 AM | | | | | PDT | | + + + + + | Height | 170.2 cm (5' 7") | 12/25/2014 8:29 AM | | | | | PDT | | + + + + + | Body Mass Index | 32.89 | 12/25/2014 8:29 AM | | | | | PDT [...] documented as of this encounter Progress Notes Wes Melvin MD - 12/25/2014 9:27 AM PDTFormatting of this note might be different from t he original. Wes Melvin MD [address] [place] [address], [address] [place] [phone] FAX: NEUROSURGERY FOLLOW-UP CHIEF COMPLAINT: Chief Complaint Patient presents with Follow-up 12-weeks post-op HISTORY OF PRESENT ILLNESS: The patient is a 69 y.o. male that had a cervical fusion by me around 4 months ago. He returns and overall is doing well. The patient complains of no ne ck or arm pain. His back and leg pain is also better and he is feeling great. Issues with swallowing have not been a major issue. Most of the pre- and postsurgical complaints have c ontinued to improve overall. PAST MEDICAL HISTORY: Past Medical History Diagnosis Date High blood pressure High cholesterol PAST SURGICAL HISTORY: Past Surgical History Procedure Laterality Date Carpal tunnel release Both Hands 12/28 Rotator cuff repair Bilateral Cervical spine surgery N/A 07/26/2014 Procedure: C3-4, C4-5, C5-6, C6-7 Anterior Cervical Discectomy Fusion; Surgeon: Wes Melvin MD; Location: [facility] MAIN OR CURRENT MEDICATIONS: Current Outpatient Prescriptions Medication Sig [...] defect Brother Diabetes Brother Kidney disease Brother INTERIM PHYSICAL EXAMINATION: Blood pressure 151/83, pulse 74, resp. rate 20, height 1.702 m (5' 7"), weight 95.255 kg (2 10 lb). Body mass index is 32.88 kg/(m^2). GENERAL: Buck Bell is in no acute distress with unlabored respirations. HEENT: HEAD/FACE: Normocephalic and atraumatic. There are no areas of recent trauma. SPINE: The patient s incision has healed further and is again without drainage, erythema, or discharge EXTREMITIES: No lower extremity edema. NEUROLOGICAL EXAMINATION: MENTAL STATUS: The patient is awake, alert, and oriented. He follows simple and complex commands MOTOR EXAM: Motor strength is grossly full. This is improved from the preoperative exam. SENSORY EXAM: The sensory examination improved from the preoperative exam. RADIOGRAPHIC REVIEW: The patient s postoperative x-rays show stable instrumentation and alignment and were rev iewed with the patient today. There have been no interval changes since the immediate posto perative films. There has been increased arthrodesis since the patient s last x-ray which was also reviewed for comparison. ASSESSMENT: Encounter Diagnosis Name Primary? S/P cervical spinal fusion Yes Past Medical History Diagnosis Date High blood pressure High cholesterol PLAN: Overall, the patient is doing well. The patient's preoperative symptoms are improving at this point. I have increased the patient s activities as of today, and I would like the patient to co ntinue to advance with activities as tolerated. I am hoping to see complete healing in the next 3-9 months time and will continue to follow the patient with x-rays. I hope sincerely that he continues to see further improvement in his symptoms over the course of his recovery . The patient will follow-up in around 3 months for re-evaluation. ELECTRONICALLY SIGNED BY: Wes Melvin MD, 12/25/2014 9:28 documented in this encounter Plan of Treatment + +---------+--------+ + + | Name | Type | Priori | Associated Diagnoses | Order Schedule | | | | ty | | | + +---------+--------+ + + | XR CERVICAL SPINE 2 | Imaging | Routin | S/P cervical | Expected: 03/25/2015 | | OR 3 VIEWS | | e | spinal fusion | (Approximate), | | | | | | Expires: 12/24/2015 | + +---------+--------+ + + documented as of this encounter Visit Diagnoses + + | Diagnosis | + + | S/P cervical spinal fusion - Primary Arthrodesis status | + + documented in this encounter
--- OUTSIDE RECORDS SUMMARY | ~2019-04-17 | XMS | Encounter Summary ---
Demographics + + + | Address | [address] | | | [place] [address] | + + + | Home Phone | | + + + | Preferred Language | Unknown | + + + | Marital Status | Single | + + + | Mormonism Affiliation | Unknown | + + + | Race | or | + + + | Ethnic Group | Not or | + + + Author + + + | Author | [facility] | + + + | Organization | [facility] | + + + | Address | Unknown | + + + | Phone | Unavailable | + + + Support + + +---------+ + | Name | Relationship | Address | Phone | + + +---------+ + | Gautam Ray | ECON | Unknown | | + + +---------+ + Care Team Providers + +------+ + | Care Cloth Desizing Range Operator Chief Name | Role | Phone | + +------+ + PCP | Unavailable | + +------+ + Reason for Visit + + + | Reason | Comments | + + + | New patient | | | consultation | | + + + Encounter Details +--------+---------+ + + + | Date | Type | Department | Care Team | Description | +--------+---------+ + + + | 05/29/ | Office | Orthopaedic Spine | Jaswant Cueva MD | Cervical Stenosis of | | 2008 | Visit | Center at [facility] [address] | Spinal Canal | | | | [address] | [address] [place], [place] | (Primary Dx) | | | | Mailcode: [id number] | [id number] | | | | | [facility] | | | | | | and Healing, | | | | | | Building | | | | | | Floor [place], [place] | | | | | | [address] | | | | | | [phone] | | | +--------+---------+ + + + [...] + + + documented in this encounter Progress Notes Jaswant Cueva MD - 05/29/2008 11:45 AM PSTReferral Source: Oscar Mcclellan CC: Neck pain HPI: Buck Bell is a 63 y.o. male with a 6 month history of neck pain. He has no d ifficulty with gait. There has been no associated weakness in the arms or legs. The sypto ms are not worse on either side. Treatment has included tylenol with some benefit as a resu lt. Pain medications currently include no narcotics. History of depression or psychiatric diagnosis is negative. Tobacco status is minimal, not daily. Prior surgery to the spine in cludes only low back surgery. He denies B/B issues, no other real concerns of a neurologica l nature. Past Medical, Past Surgical, Family History, Medicals & Allergies, Social History and Revie w of Systems has been reviewed by me and are as per the intake note. Physical Exam: General: The patient is a well-formed, well nourished individual in no acute distress who appears of stated age. Affect and mood are normal. Patient is normocephalic, conjugate gaz e. Breathing is normal. Skin is normal color, temperature. No significant lymphedema. S tation and gait are satisfactory. Vital Signs: BP 164/86 | Pulse 83 | Temp (Src) 36.9 C (98.4 F) (Oral) | Resp 12 | Ht 1 .676 m (5' 6") | Wt 104.327 kg (230 lb) Musculoskeletal: Examination of the cervical spine demonstrates no skin changes or areas o f induration. Surgical incision: none. Flexibility is normal to flexion, extension, latera l bending, and axial rotation. Gutierrez and Neer tests are negative for impingement. Neurologic: Muscle strength is 5/5 in all motor groups of the upper extremities. Deep tend on reflexes are 2/4 bilaterally at the biceps, triceps and wrist extensors except none. The re is no Hoffmans sign. Lower extremity DTRs are normal bilaterally. Toes are down going. There is no clonus. Sensation is grossly intact to light touch throughout except . Radiographs: Xrays: AP and lateral cervical radiographs NA. MRI of cervical spine from 04/23 shows multiplevel djd, with moderat e stenosis at C4/5 and a little signal in the cord at that level on the STIR sequence. CT of cervical spine from Assessment/Plan: Assymptomatic cord compression without spascitiy in reflexes. I would t reat this expectantly. No surgery is proposed. He will follow with Dr. Mcclellan per his pl an, PRN to my clinic unless neurological symptoms develop. documented in this encou nter Plan of Treatment Not on filedocumented as of this encounter Visit Diagnoses + + | Diagnosis | + + | Cervical stenosis of spinal canal - Primary Spinal stenosis in cervical region | + + documented in this encounter
--- OUTSIDE RECORDS SUMMARY | ~2019-04-17 | XMS | Encounter Summary ---
Demographics + + + | Address | [address] | | | [place] [address] | + + + | Home Phone | | + + + | Preferred Language | Unknown | + + + | Marital Status | Single | + + + | Amish Affiliation | 1041 | + + + | Race | Unknown | + + + | Ethnic Group | Unknown | + + + Author + + + | Author | [facility] | | | and [place] | + + + | Organization | [facility] | | | and [place] [...] Team Providers + +------+ + | Care Regional Extension Service Specialist Name | Role | Phone | + +------+ + | Dominic Carlin MD | PCP | | + +------+ + Reason for Visit + + + | Reason | Comments | + + + | Spells | | + + + | Back Pain | | + + + Encounter Details +--------+ + + + + | Date | Type | Department | Care Team | Description | +--------+ + + + + | 09/24/ | Telephone | [facility] | Wes Melvin MD | [facility]; Back Pain | | 2014 | | NEUROSURGERY [address] | [address] | | | | | [address] | [place] [address] | | | | | [place] | [phone] | | | | | [address] | | | | | | [phone] | | | +--------+ + + + [...]
--- OUTSIDE RECORDS SUMMARY | ~2019-04-17 | XMS | Encounter Summary ---
Demographics + + + | Address | [address] | | | [place] [address] | + + + | Home Phone | | + + + | Preferred Language | Unknown | + + + | Marital Status | Single | + + + | Evangelical Affiliation | 1041 | + + + | Race | Unknown | + + + | Ethnic Group | Unknown | + + + Author + + + | Author | [facility] | | | and [place] | + + + | Organization | [facility] | | | and [place] [...] Team Providers + +------+ + | Care Master [place] Name | Role | Phone | + [...] [address] | | | | | | [place] | | | | | | [address] | | | | | | [phone] | | | +--------+ + + + [...]
--- OUTSIDE RECORDS SUMMARY | ~2019-04-17 | XMS | Encounter Summary ---
Demographics + + + | Address | [address] | | | [place] [address] | + + + | Home Phone | | + + + | Preferred Language | Unknown | + + + | Marital Status | Single | + + + | Christianity Affiliation | 1041 | + + + | Race | Unknown | + + + | Ethnic Group | Unknown | + + + Author + + + | Author | [facility] | | | and [place] | + + + | Organization | [facility] | | | and [place] [...] Team Providers + +------+ + | Care Executive Pastry Chef Name | Role | Phone | + [...] [address] | | | | | [place], [place] | [place] [address] | | | | | [address] | [phone] | | | | | [phone] | | | +--------+--------+ + + + [...]
--- OUTSIDE RECORDS SUMMARY | ~2019-04-17 | XMS | Clinical Summary ---
Demographics + + + | Address | [address] | | | [place] [address] | + + + | Home Phone | | + + + | Preferred Language | Unknown | + + + | Marital Status | Single | + + + | Judaism Affiliation | 1041 | + + + | Race | Unknown | + + + | Ethnic Group | Unknown | + + + Author + + + | Author | [facility] | | | and [place] | + + + | Organization | [facility] | | | and [...] Team Providers + +------+ + | Care Property Insurance Agent Name | Role | Phone | + [...] | | + + + +---------+------+------+-------+ | cyclobenzaprine | Take 1 tablet by | 90 | 3 | 03/1 | | Activ | | (FLEXERIL) 10 mg | mouth every 8 hours | tablet | | 3/20 | | e | | tablet | as needed for Muscle | | | 15 | | | | | spasms. | | | | | | + + + +---------+------+------+-------+ | | Take 1-2 tablets by | 120 | 0 | 03/1 | | Activ | | HYDROcodone-acetamin | mouth every 4 hours | tablet | | 3/20 | | e | | ophen (NORCO) 5-325 | as needed for Pain. | | | 15 | | | | mg per tablet [...] by | | 0 | 08/0 | | Activ | | (PLAVIX) 75 mg | mouth daily. | | | 2/20 | | e | | tablet | | | | 16 | | | + + + +---------+------+------+-------+ [...] Noted Date | + + + | Homonymous hemianopia | [...] High cholesterol | | + + + Family History + [...] + + + | Blood Pressure | 140/75 | 12/17/2015 10:19 AM | | | | | PDT | | + + + + + | Pulse | 65 | 12/17/2015 10:19 AM | | | | | PDT [...] + + + + | Weight | 86.2 kg (190 lb) | 12/17/2015 10:19 AM | | | | | PDT | | + + + + + | Height | 170.2 cm (5' 7") | 12/17/2015 10:19 AM | | | | | PDT | | + + + + + | Body Mass Index | 29.76 | 12/17/2015 10:19 AM | | | | | PDT | | + + + + + Plan of Treatment + + + + + | Health Maintenance | Due Date | Last Done | Comments | + + + + + | Vaccine: | | | | | Dtap/Tdap/Td (1 - | 3 | | | | Tdap) | | | | + + + + + | Vaccine: Zoster (1 | | | | | of 2) | 4 | | | + + + + + | Vaccine: | | | | | Pneumococcal 65+ (1 | 9 | | | | of 2 - PCV13) | | | | + + + + + | Vaccine: Influenza | | | | | (#1) | 9 | | | + + + + + Implants + +------+--------+ +--------+--------+--------+ | Implanted | Type | Area | Manufacture | Device | Shelf | Model | | | | | r | | Expira | / | | | | | | Identi | tion | Serial | | | | | | fier | Date | / Lot | + +------+--------+ +--------+--------+--------+ | Analilia Beal Pls 1cc Aseptic | | N/A: | OSTEOTECH - | | 03/15/ | [id number] | | - [id number]: Qty: | | Spine | OSTT | | 2016 | | | 1 on 07/26/2014 by Olegario, | | Agustina | | | | /[id number] | | Wes Rasmussen MD at [facility] | | al | | | | 1-069 | | [facility] | | | | | | / | + +------+--------+ +--------+--------+--------+ | Allograft Lordotic [id number] - | | N/A: | SO[employer]OR | | 03/27/ | [id number] | | [id number]: Qty: 1 on | | Spine | DANEK - DIV | | 2016 | | | 07/26/2014 by Wes Melvin | Jose Berrios | [employer] | | | /[id number] | | at [facility] | | al | - S[facility]K | | | 137 | | [facility] | | | | | | /[id number] | | | | | | | | [address] | + +------+--------+ +--------+--------+--------+ | Allogft Lordtc Bone Sr | | N/A: | SPINALGRAFT | | 03/19/ | [id number] | | [id number] - [id number]: | | Spine | | | 2016 | | | Qty: 1 on 07/26/2014 by Olegario, | | Cervic | TECHNOLOGIE | | | /[id number] | | Wes Rasmussen MD at [facility] | | al | S - SPNL | | | 8[address] | | [facility] | | | | | | /[id number] | | [place] | | | | | | [address] | + +------+--------+ +--------+--------+--------+ | Allograft Lordotic [id number] - | | N/A: | [employer]OR | | 03/27/ | [id number] | | [id number]: Qty: 1 on | | Spine | DANEK - DIV | | 2016 | | | 07/26/2014 by Wes Melvin, | | Cervic | [employer] | | | /[id number] | | at [facility] | | al | - [facility] | | | [address] | | [facility] | | | | | | /[id number] | | | | | | | | [address] | + +------+--------+ +--------+--------+--------+ | Allogft Lordtc Bone Sr | | N/A: | SPINALGRAFT | | 03/23/ | [id number] | | [id number] - [id number]: | | Spine | | | 2017 | | | Qty: 1 on 07/26/2014 by Olegario, | | Agustina | ORLDAN | | | /[id number] | | Wes Rasmussen MD at [facility] | | al | S - SPNL | | | 9[address] | | [facility] | | | | | | /[id number] | | CENTER | | | | | | [address] | + +------+--------+ +--------+--------+--------+ | Screw Slf-Drl F/A 4.5x17mm - | | N/A: | [employer] | | | [id number] | | [id number]: Qty: 2 on | | Spine | DANEK - DIV | | | | | 07/26/2014 by Wes Melvin, | | Agustina | [employer] | | | | | MD at [facility] | | al | - [facility] | | | | | [facility] | | | | | | | + +------+--------+ +--------+--------+--------+ | Screw Slf-Drl V/A 4.0x16mm - | | N/A: | [employer] | | | [id number] | | [id number]: Qty: 6 on | | Spine | DANEK - DIV | | | | | 07/26/2014 by Wes Melvin, | | Agustina | [employer] | | | | | MD at [facility] | | al | - [facility] | | | | | [facility] | | | | | | | + +------+--------+ +--------+--------+--------+ | Screw Slf-Drl V/A 4.0x17mm - | | N/A: | [employer] | | | [id number] | | [id number]: Qty: 2 on | | Spine | DANEK - DIV | | | 7 / | | 07/26/2014 by Wes Melvin, | Jose Berrios | [employer] | | | | | at [facility] | | al | - [facility] | | | | | [facility] | | | | | | | + +------+--------+ +--------+--------+--------+ | Plate Ant [place] Cerv 80mm | | N/A: | [employer] - | | | [id number] | | - [id number]: Qty: 1 | | Spine | MEDT | | | 0 / / | | on 07/26/2014 by Wes Melvin | Jose Berrios | | | | | | MD Valery at [facility] | | al | | | | | | [facility] | | | | | | | + +------+--------+ +--------+--------+--------+ Results Not on filefrom Last 3 Months Insurance + +--------+ +--------+ [...] +---------+--------+ | [employer] | [employer] | [id number] | | | | Indemn | | | NS | | 017-Pr | | | ity | | | ADMIN | | esent | | | | | | [place] | | | | | | | | [place] | | | | | | + +--------+ +--------+ +---------+--------+ | MEDICARE | MEDICA | [id number] | 11/15/19 | [phone] | | Medica | | | RE | | 16-Pre | 5 | | re | | | PART A | | sent | | | | | | AND B | | | | | | + +--------+ +--------+ +---------+--------+ | [employer] [facility] | IHS | [id number] | 07/16/19 | | | Indemn | [...] Person | Self | [birth year] | [id number] | Jose Coombs | josemanuel/Cristi | | 1945 | [phone] | [place] | | | carolyn | | | 4 (Home) | [phone] | + +--------+ +--------+ + + Advance Directives + + + + + | Type | Date Recorded | Patient | Explanation | | | | Municipal Bond Trader | | + + + + + | Power of | | | | | Core Shaper Top | | | | + + + [...]
--- OUTSIDE RECORDS SUMMARY | ~2019-04-17 | XMS | Encounter Summary ---
Demographics + + + | Address | [address] | | | [place] [address] | + + + | Home Phone | | + + + | Preferred Language | Unknown | + + + | Marital Status | Single | + + + | Hoahaoism Affiliation | Unknown | + + + | Race | or | + + + | Ethnic Group | Not or | + + + Author + + + | Author | [facility] | + + + | Organization | [facility] | + + + | Address | Unknown | + + + | Phone | Unavailable | + + + Support + + +---------+ + | Name | Relationship | Address | Phone | + + +---------+ + | Gautam Ray | ECON | Unknown | | + + +---------+ + Care Team Providers + +------+ + | Care Production Metal Sprayer Name | Role | Phone | + +------+ + PCP | Unavailable | + +------+ + Reason for Visit + + + | Reason | Comments | + + + | Follow-up encounter | | + + + Consultation (Routine) +--------+--------+ + + + + | Status | Reason | Specialty | Diagnoses / | Referred By | Referred To | | | | | Procedures | Contact | Contact | +--------+--------+ + + + + | Closed | | Orthopedics | Diagnoses | Orfaly, | Vy, | | | | | Disorders | MD Jaswant | MD Lilo | | | | | of bursae | [address] | [address] | | | | | and tendons | [place] | | | | | in shoulder | Rd | Rd [place], | | | | | region, | [place], [place] | [place] | | | | | unspecified | [address] | [address] | | | | | Procedures | Phone: | Phone: | | | | | CONSULT TO | [phone] | [phone] | | | | | ORTHOPEDICS | Fax: | Fax: | | | | | AND | [phone] | [phone] | | | | | REHABILITATI | | | | | | | ON | | | +--------+--------+ + + + + Encounter Details +--------+---------+ + + + | Date | Type | Department | Care Team | Description | +--------+---------+ + + + | 05/29/ | Office | Orthopaedic Spine | Lilo Mcclellan MD | Shoulder Pain; | | 2008 | Visit | Center at [facility] [address] | [address] | Cervical | | | | [address] | Angelica Guerin [place], | Radiculopathy | | | | Mailcode: CH8N | [place] [address] | | | | | [place] for [facility] | [phone] | | | | | and Healing, | | | | | | Building | | | | | | Floor [place], [place] | | | | | | [address] | | | | | | [phone] | | | +--------+---------+ + + + [...] + + + | Blood Pressure | - | - | | + + + + + | Pulse | - | - | | + + + + + | Temperature | - | - | | + + + + + | Respiratory Rate | - | - | | + + + + + | Oxygen Saturation | - | - | | + + + + + | Inhaled Oxygen | - | - | | | Concentration | | | | + + + + + | Weight | 104.3 kg (230 lb) | 05/29/2008 9:54 AM | | | | | PST | | + + + + + | Height | 167.6 cm (5' 6") | 05/29/2008 9:54 AM | | | | | PST | | + + + + + | Body Mass Index | 37.12 | 05/29/2008 9:54 AM | | | | | PST | | + + + + + documented in this encounter Progress Notes Tony Monge MD - 05/29/2008 10:09 AM PSTS. Pt returns to clinic today for continued care of L sided neck / shoulder pain. On 04/23 Pt had an EMG which showed This is an abnormal and complex study. There are electrophysiologic findings consistent with a left median neuropathy at the wrist - carpal tunnel syndrome, and ulnar neuropathy at the elbow. There are electrophysiologic findings suggestive of a left C5/C6 radiculopathy. This study cannot rule-out a co-existing axillary neuropathy, however the findings in the l eft deltoid could be attributed to the abnormalities seen in the left C5/6 myotomes. Since his last visit his symptoms have not improved. They are not getting worse. Today sy mptoms described as "kink in L neck", mild numbness over L trap area. Pt notes L shoulder m ay be getting smaller. Pt has limited ROM about shoulder, is unable to forward flex or abd uct his shoulder. Denies any current catching, popping, grinding, weakness, denies night numbness or tinglin g. Pt is not undergoing any treatment at this time. O A&Ox3, NAD LUE - limited active ROM about shoulder. Pt has nearly full passive ROM about shoulder. Delts 1/5. Significant deltoid atrophy. No fasciculations noted. L trap - no abnormal masses noted in area of pt perceived "knot" Bicep, tricep, wrist extension, wrist flexion, finger flexion and abduction all 5/5 SILT over m/u/r/a nerve distribution. Sensation absent over upper trap in small area Fingers pink and warm, 2+ radial pulse A/P L cervical radiculopathy over an axillary neuropathy Continue PT - Lilo Minor MD - 05/29 7:58 AM PST Buck Bell is a 63 y.o. male presents to clinic today with a chief complaint of axill yuly neuropathy vs cervical radiculopathy. As per prior EMG, there are electrophysiological findings that are most consistent with a left cervical radiculopathy, including findings of cervical paraspinal muscle denervation. However, a co-existing axillary neuropathy cannot b e ruled-out. His cervical MRI does show severe central canal stenosis at C45 with what appears to be inc reased cord signal. Patient notes that the symptoms are not changed, that he does not have a lot of pain, but c ontinues to have profound weakness in the left shoulder girdle. History Social History Marital Status: Single Spouse Name: N/A Number of Children: N/A Years of Education: N/A Social History Main Topics Tobacco Use: Never Alcohol Use: Yes Drug Use: No Sexually Active: Not on file Other Topics Concern Not on file Social History Narrative No narrative on file Past Medical History Diagnosis Date Unspecified Essential Hypertension Past Surgical History Procedure Date Hx rotator cuff repair left No Taking medications on file for 05/29/08 encounter (Appointment) with LILO MCCLELLAN. No Known Allergies. No family history on file. Physical examination: There were no vitals taken for this visit. Patient is alert, cooperative and in no apparent distress. Gait is non-antalgic with freddie l coordination. Patient is able to transfer independently to and from chair and exam table. Hypoactive reflexes in the bilateral upper extremities. Left shoulder girdle/deltoid atrop hy. Unable to actively abduct the arm above 80 degrees. ASSESSMENT: 1. Left C5/C6 cervical radiculopathy. 2. MRI suggestive for myelopathy. 3. History of left rotator cuff repair, cannot rule out co-existing axillary neuropathy. PLAN: 1. Patient was able to be seen by Dr. Cueva today. His note is pending. He does not feel that surgical intervention at the cervical spine is likely to help with the motor deficits. 2. Patient will continue with his home exercise program. 3. He is not currently scheduled for a follow-up, but is to return or seek urgent medical attention if he experiences any warning signs of progressive radiculopathy/myelopathy. Elec tronically signed by Lilo Mcclellan MD at 05/30/2008 9:49 AM PSTdocumented in this encounter Plan of Treatment Not on filedocumented as of this encounter Visit Diagnoses + + | Diagnosis | + + | Shoulder pain Pain in joint, shoulder region | + + | Cervical radiculopathy Brachial neuritis or radiculitis nos | + + documented in this encounter
--- OUTSIDE RECORDS SUMMARY | ~2019-04-17 | XMS | Encounter Summary ---
Demographics + + + | Address | [address] | | | [place] [address] | + + + | Home Phone [...] | Organization | [facility] | | | and [place] [...] Team Providers + +------+ + | Care Companion Caregiver Name | Role | Phone | [...] | | [address] | [place] [address] | instructions) | | | | [place] | [phone] | | | | | [address] | | | | | | [phone] | | | +--------+ + + + [...]
--- OUTSIDE RECORDS SUMMARY | ~2019-04-17 | XMS | Encounter Summary ---
Demographics + + + | Address | [address] | | | [place] [address] | + + + | Home Phone | | + + + | Preferred Language | Unknown | + + + | Marital Status | Single | + + + | Protestant Affiliation | 1041 | + + + | Race | Unknown | + + + | Ethnic Group | Unknown | + + + Author + + + | Author | [facility] | | | and [place] | + + + | Organization | [facility] | | | and [...] Team Providers + +------+ + | Care Bucket Hooker Name | Role | Phone | + +------+ + PCP | Unavailable | + +------+ + Encounter Details +--------+ + + + + | Date | Type | Department | Care Team | Description | +--------+ + + + + | 06/06/ | Hospital | [facility] | | Sprain rotator cuff | | 2003 | Encounter | [address] | | | | | | [address] | | | | | | [place] | | | | | | [address] | | | | | | [phone] | | | +--------+ + + + [...] + | Diagnosis | + + | Sprain rotator cuff Rotator cuff (capsule) sprain | + + documented in this encounter"
--- OUTSIDE RECORDS SUMMARY | ~2019-04-17 | XMS | Encounter Summary ---
Demographics + + + | Address | [address] | | | [place] [address] | + + + | Home Phone | | + + + | Preferred Language | Unknown | + + + | Marital Status | Single | + + + | Judaism Affiliation | 1041 | + + + | Race | Unknown | + + + | Ethnic Group | Unknown | + + + Author + + + | Author | [facility] | | | and [place] | + + + | Organization | [facility] | | | and [place] | [...] Team Providers + +------+ + | Care Butcher Supervisor Name | Role | Phone | + +------+ + | Dominic Carlin MD | PCP | | + +------+ + Encounter Details +--------+ + + + + | Date | Type | Department | Care Team | Description | +--------+ + + + + | 07/07/ | Orders Only | [facility] | Wes Melvin MD | Spinal stenosis | | 2013 | | NEUROSURGERY [address] | [address] | (Primary Dx); Neck | | | | [address] | [place] [address] | pain | | | | [place] | [phone] | | | | | [address] | | | | | | [phone] | | | +--------+ + + + [...] on filedocumented as of this encounter Results XR Cervical Spine 4 or 5 Vws (01/19/2014 8:52 AM PDT) + + | Specimen | + + | | + + + + + | Narrative | Performed At | + + + | FOUR VIEWS CERVICAL SPINE 01/19/2014 8:52 AM CLINICAL HISTORY: | MISCELANIOUS | | NECK PAIN COMPARISON: CERVICAL MRI MAY 16, 2013 FROM [facility] | LAB | | [facility] FINDINGS: An AP view and lateral views in neutral, | | | flexed and extended positions are provided. There is persistent | | | straightening of the cervical lordosis. Cervical vertebral height is | | | maintained, without evident fracture. Moderate to severe disc | | | space narrowing and vertebral spondylosis are present at C4-5, C5-6, | | | C6-7 and C7-T1. There is multilevel facet hypertrophy. Mild | | | anterolisthesis at C3-4 is more pronounced with flexion and resolves | | | with extension. Mild retrolisthesis at C4-5 is more pronounced with | | | extension and partially resolves with flexion. No other | | | subluxation is evident. Bilateral cervical carotid calcification is | | | suggested. Imaged skull base, soft tissue structures and lung | | | apices are otherwise unremarkable. IMPRESSION - 1. MULTILEVEL | | | DEGENERATIVE DISC DISEASE AND SPONDYLOSIS WITH MILD SPONDYLOLISTHESIS | | | AT C3-4 AND C4-5 DESCRIBED. 2. CERVICAL CAROTID | | | CALCIFICATION. Dictated and Signed by: Juancarlos Lynn MD | | | Electronically signed: 01/19/2014 11:34 AM | | + + + + + | Procedure Note | + + | [place], Rad Results In - 01/19/2014 11:38 AM PDT FOUR VIEWS CERVICAL SPINE 01/19/2014 8:52 | | AMCLINICAL HISTORY: NECK PAINCOMPARISON: CERVICAL MRI MAY 16, 2013 FROM [facility] | | [facility]: An AP view and lateral views in neutral, flexed and extended | | positionsare provided. There is persistent straightening of the cervical lordosis. | | Cervical vertebral height is maintained, without evident fracture. Moderate tosevere | | disc space narrowing and vertebral spondylosis are present at C4-5, C5-6,C6-7 and C7-T1. | | There is multilevel facet hypertrophy. Mild anterolisthesis atC3-4 is more pronounced | | with flexion and resolves with extension. Mildretrolisthesis at C4-5 is more | | pronounced with extension and partially resolveswith flexion. No other subluxation is | | evident. Bilateral cervical carotidcalcification is suggested. Imaged skull base, soft | | tissue structures and lungapices are otherwise unremarkable.IMPRESSION -1. MULTILEVEL | | DEGENERATIVE DISC DISEASE AND SPONDYLOSIS WITH MILDSPONDYLOLISTHESIS AT C3-4 AND C4-5 | | DESCRIBED.2. CERVICAL CAROTID CALCIFICATION.Dictated and Signed by: Juancarlos Lynn MD | | Electronically signed: 01/19/2014 11:34 AM | |calcification is suggested. Imaged skull base, soft tissue structures and lung | |apices are otherwise unremarkable. | | | |IMPRESSION - | |1. MULTILEVEL DEGENERATIVE DISC DISEASE AND SPONDYLOSIS WITH MILD | |SPONDYLOLISTHESIS AT C3-4 AND C4-5 DESCRIBED. | | | |2. CERVICAL CAROTID CALCIFICATION. | | | |Dictated and Signed by: Juancarlos Lynn MD | | Electronically signed: 01/19/2014 11:34 AM | + + + +---------+ + + | Performing | Address | City/State/Zipcode | Phone Number | | Organization | | | | + +---------+ + + | [facility] | | | [phone] | + +---------+ + + | [facility] | | | [phone] | + +---------+ + + documented in this encounter Visit Diagnoses + + | Diagnosis | + + | Spinal stenosis - Primary Spinal stenosis, unspecified region other than cervical | + + | Neck pain Cervicalgia | + + documented in this encounter"
--- OUTSIDE RECORDS SUMMARY | ~2019-04-17 | XMS | Encounter Summary ---
Demographics + + + | Address | [address] | | | [place] [address] | + + + | Home Phone | | + + + | Preferred Language | Unknown | + + + | Marital Status | Single | + + + | Christian Affiliation | 1041 | + + + | Race | Unknown | + + + | Ethnic Group | Unknown | + + + Author + + + | Author | [facility] | | | and [place] | + + + | Organization | [facility] | | | and [place] [...] Team Providers + +------+ + | Care Manager Investment Banking Name | Role | Phone | + +------+ + | Dominic Carlin MD | PCP | | + +------+ + Encounter Details +--------+ + + + + | Date | Type | Department | Care Team | Description | +--------+ + + + + | 08/23/ | Hospital | [facility] | Haroldo King | S/P cervical spinal | | 2014 | Encounter | MED CTR XRAY [address] | [address] | fusion | | | | [place] | [address] | | | | | [place] [address] | [place] [id number] | | | | | [phone] | | | | | | | [...] XR CERVICAL SPINE 2 | Routin | 08/23/2014 | S/P cervical | Results for this | | OR 3 VIEWS | e | 10:00 AM | spinal fusion | procedure are in the | | | | PDT | | results section. | + +--------+ + + + documented in this encounter Results XR CERVICAL SPINE 2 OR 3 VIEWS (08/23/2014 10:00 AM PDT) + + | Specimen | + + | | + + + + + | Narrative | Performed At | + + + | XR CERVICAL SPINE 2 OR 3 VIEWS 08/23/2014 10:00 AM HISTORY: | [facility] | | Postop. COMPARISON: 07/26/2014. FINDINGS: Visualized skull | [facility] | | base and facial structures demonstrate no acute findings. | [facility] | | Prevertebral soft tissues are normal. Again visualized are | - IMAGING | | hardware for anterior fusion from C3 through C7 with interbody graft | | | material at these levels. The hardware remains intact. There are | | | moderate degenerative changes of the anterior atlantoaxial joint. | | | Moderate spondylosis is observed of C2 as well [...] Sher MD | | | Electronically signed: 08/23/2014 3:37 PM | | + + + + + | Procedure Note | + + | [place], Rad Results In - 08/23/2014 3:40 PM PDT XR CERVICAL SPINE 2 OR 3 VIEWS 08/23/2014 | | 10:00 AMHISTORY: Postop.COMPARISON: 07/26/2014.FINDINGS:Visualized skull base and facial | | structures demonstrate no acute findings.Prevertebral soft tissues are normal.Again | | visualized are hardware for anterior fusion from C3 through C7 withinterbody graft | | material at these levels. The hardware remains intact. There aremoderate degenerative | | changes of the anterior atlantoaxial joint. Moderatespondylosis is observed of C2 as | | well as at C7 and T1. Bone mineralization isnormal. The dens is normal. Vertebral body | | height are preserved with no evidencefor compression fractures. Disc height are | | maintained. Multilevel facetsclerosis and hypertrophy are present. Visualized upper | | chest demonstrates noacute findings. Mild right and moderate left soft tissue | | calcifications areseen, likely atherosclerosis.IMPRESSION -Stable anterior fusion from | | C3 through C7.Dictated and Signed by: Lloyd Sher MD Electronically signed: 08/23/2014 | | 3:37 PM | |spondylosis is observed of C2 as well as at C7 and T1. Bone mineralization is | |normal. The dens is normal. Vertebral body height are preserved with no evidence | |for compression fractures. Disc height are maintained. Multilevel facet | |sclerosis and hypertrophy are present. Visualized upper chest demonstrates no | |acute findings. Mild right and moderate left soft tissue calcifications are | |seen, likely atherosclerosis. | | | |IMPRESSION - | |Stable anterior fusion from C3 through C7. | | | |Dictated and Signed by: Lloyd Sher MD | | Electronically signed: 08/23/2014 3:37 PM | + + + + + + + | Performing | Address | City/State/Zipcode | Phone Number | | Organization | | | | + + + + + | [facility] | [address] | [place] | [phone] | | [facility] | | [address] | | | - IMAGING | | | | + + + + + documented in this encounter Visit Diagnoses + + | Diagnosis | + + | S/P cervical spinal fusion Arthrodesis status | + + documented in this encounter"
--- OUTSIDE RECORDS SUMMARY | ~2019-04-17 | XMS | Encounter Summary ---
Demographics + + + | Address | [address] | | | [place] [address] | + + + | Home Phone | | + + + | Preferred Language | Unknown | + + + | Marital Status | Single | + + + | Yazdanism Affiliation | Unknown | + + + | Race | or | + + + | Ethnic Group | Not or | + + + Author + + + | Author | [facility] | + + + | Organization | [facility] | + + + | Address | Unknown | + + + | Phone | Unavailable | + + + Support + + +---------+ + | Name | Relationship | Address | Phone | + + +---------+ + | Gautam Ray | ECON | Unknown | | + + +---------+ + Care Team Providers + +------+ + | Care Migration Agent Name | Role | Phone | + +------+ + PCP | Unavailable | + +------+ + Encounter Details +--------+ + + + + | Date | Type | Department | Care Team | Description | +--------+ + + + + | 04/19/ | Document-Sc | UNKNOWN DEPARTMENT | Radiologist, | | | 2008 | anned | [address] | [facility] | | | | | [address] | | | | | | [place], [place] | | | | | | [address] | | | +--------+ + + + [...]
--- OUTSIDE RECORDS SUMMARY | ~2019-04-17 | XMS | Encounter Summary ---
Demographics + + + | Address | [address] | | | [place] [address] | + + + | Home Phone [...] + + + | Author | [facility] | | | and [place] | + + + | Organization | [facility] | | | and [place] [...] Team Providers + +------+ + | Care Education Liaison Name | Role | Phone | + +------+ + | Dominic Carlin MD | PCP | | + +------+ + Reason for Visit + + + | Reason | Comments | + + + | Neck Stiffness | | + + + | Dizziness | | + + + Encounter Details +--------+ + + + + | Date | Type | Department | Care Team | Description | +--------+ + + + + | 02/13/ | Telephone | [facility] | Wes Melvin MD | Neck Stiffness; | | 2015 | | NEUROSURGERY [address] | [address] | Dizziness | | | | [address] | [place] [address] | | | | | [place] | [phone] | | | | | [address] | | | | | | [phone] | | | +--------+ + + + [...]
--- OUTSIDE RECORDS SUMMARY | ~2019-04-17 | XMS | Encounter Summary ---
Demographics + + + | Address | [address] | | | [place] [address] | + + + | Home Phone [...] | Organization | [facility] | | | and [place] [...] Team Providers + +------+ + | Care Handwriting Expert Name | Role | Phone | + +------+ + | Dominic Carlin MD | PCP | | + +------+ + Encounter Details +--------+ + + + + | Date | Type | Department | Care Team | Description | +--------+ + + + + | 07/11/ | Hospital | [facility] | Wes Melvin MD | | | 2015 | Encounter | MED CTR LABORATORY | [address] [address] [address] [address] | | | | | [address] | [place] [address] | | | | | [place] | [phone] | | | | | [address] | | | | | | [phone] | | | +--------+ + + + [...]
--- OUTSIDE RECORDS SUMMARY | ~2019-04-17 | XMS | Encounter Summary ---
Demographics + + + | Address | [address] | | | [place] [address] | + + + | Home Phone | | + + + | Preferred Language | Unknown | + + + | Marital Status | Single | + + + | Anglican Affiliation | 1041 | + + + | Race | Unknown | + + + | Ethnic Group | Unknown | + + + Author + + + | Author | [facility] | | | and [place] | + + + | Organization | [facility] | | [...] Team Providers + +------+ + | Care Parachute Taper Name | Role | Phone | + +------+ + | Dominic Carlin MD | PCP | | + +------+ + Encounter Details +--------+ + + + + | Date | Type | Department | Care Team | Description | +--------+ + + + + | 07/18/ | Orders Only | [facility] | Haroldo King | S/P cervical spinal | | 2015 | | NEUROSURGERY [address] | [address] | fusion (Primary Dx) | | | | [address] | [address] | | | | | [place] | [place] [address] | | | | | [address] | [phone] | | | | | [phone] | | | +--------+ + + + [...] filedocumented as of this encounter Results XR CERVICAL [...] ST. | [address] | [place] | [phone] | | [facility] | | [address] | | | - IMAGING | | | | + + + + + documented in this encounter Visit Diagnoses + + | Diagnosis | + + | S/P cervical spinal fusion - Primary Arthrodesis status | + + documented in this encounter"
--- OUTSIDE RECORDS SUMMARY | ~2019-04-17 | XMS | Encounter Summary ---
Demographics + + + | Address | [address] | | | [place] [address] | + + + | Home Phone | | + + + | Preferred Language | Unknown | + + + | Marital Status | Single | + + + | Temple Affiliation | 1041 | + + + | Race | Unknown | + + + | Ethnic Group | Unknown | + + + Author + + + | Author | [facility] | | | and [place] | + + + | Organization | [facility] | | | and [place] [...] Team Providers + +------+ + | Care Rn Outpatient Surgery Name | Role | Phone | + +------+ + PCP | Unavailable | + +------+ + Encounter Details +--------+ + + + + | Date | Type | Department | Care Team | Description | +--------+ + + + + | 05/16/ | Hospital | [facility] | Conversion | DDD (degenerative | | 2012 | Encounter | [facility] MRI | Transaction, | disc disease); | | | | [address] | Provider Unknown | Neuralgia; 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
--- OUTSIDE RECORDS SUMMARY | ~2019-04-17 | XMS | Encounter Summary ---
Demographics + + + | Address | [address] | | | [place] [address] | + + + | Home Phone | | + + + | Preferred Language | Unknown | + + + | Marital Status | Single | + + + | Synagogue Affiliation | 1041 | + + + | Race | Unknown | + + + | Ethnic Group | Unknown | + + + Author + + + | Author | [facility] | | | and [place] | + + + | Organization | [facility] | | | and [place] [...] Providers + +------+ + | Care Form Carpenter Name | Role | Phone | + +------+ + | Dominic Carlin MD | PCP | | + +------+ + Reason for Visit +--------+ + | Reason | Comments | +--------+ + | Other | Change of surgery date | +--------+ + Encounter Details +--------+ + + + + | Date | Type | Department | Care Team | Description | +--------+ + + + + | 06/22/ | Telephone | [facility] | Wes Melvin MD | Other (Change of | | 2014 | | NEUROSURGERY [address] | [address] | surgery date) | | | | [address] | [place] [address] | | | | | [place] | [phone] | | | | | [address] | | | | | | [phone] | | | +--------+ + + + [...]
--- OUTSIDE RECORDS SUMMARY | ~2019-04-17 | XMS | Encounter Summary ---
Demographics + + + | Address | [address] | | | [place] [address] | + + + | Home Phone | | + + + | Preferred Language | Unknown | + + + | Marital Status | Single | + + + | Sikhism Affiliation | 1041 | + + + | Race | Unknown | + + + | Ethnic Group | Unknown | + + + Author + + + | Author | [facility] | | | and [place] | + + + | Organization | [facility] | | | and [...] Team Providers + +------+ + | Care Towel Distributor Name | Role | Phone | + +------+ + | Dominic Carlin MD | PCP | | + +------+ + Encounter Details +--------+ + + + + | Date | Type | Department | Care Team | Description | +--------+ + + + + | 12/25/ | Hospital | [facility] | Haroldo King | Cervical spondylosis | | 2015 | Encounter | MED CTR XRAY [address] | [address] | with myelopathy; | | | | [address] | [facility] [address] | Degenerative disc | | | | [place] [address] | [place] [address] | disease, cervical; | | | | [phone] | [phone] | Cervical cord | | | | | | myelomalacia ([facility]); | | | | | | S/P [...] tablets by | 120 | 0 | //20 | | | HYDROcodone-acetamin | mouth every [...] Postop. COMPARISON: Multiple priors. FINDINGS: Visualized | [facility] | | skull base and facial structures [...] + + | Performing | Address | City/State/[facility] | Phone Number | | Organization | | | | + + + + + | [facility] | [address] | [place] | [phone] | | [facility] | | [address] | | | - IMAGING | | [...]
--- OUTSIDE RECORDS SUMMARY | ~2019-04-17 | XMS | Encounter Summary ---
Demographics + + + | Address | [address] | | | [place] [address] | + + + | Home Phone | | + + + | Preferred Language | Unknown | + + + | Marital Status | Single | + + + | Denominational Affiliation | 1041 | + + + | Race | Unknown | + + + | Ethnic Group | Unknown | + + + Author + + + | Author | [facility] | | | and [place] | + + + | Organization | [facility] | | | and [place] [...] Team Providers + +------+ + | Care Tunnel Mucker Name | Role | Phone | + +------+ + | Dominic Carlin MD | PCP | | + +------+ + Encounter Details +--------+ + + + + | Date | Type | Department | Care Team | Description | +--------+ + + + + | 09/11/ | Hospital | [facility] | Conversion | Pain | | 2016 | Encounter | CONVERSION [address] | Transaction, | | | | | [address] | Provider Unknown | | | | | [facility] | [phone] | | | | | [address] | (Fax) | | | | | [phone] | | | +--------+ + + + [...] | VAS CAROTID DUPLEX | Routin | 09/12/2015 | | Results for this | | BILATERAL | e | 11:00 PM | | procedure are in the | | | | PDT | | results section. | + +--------+ + + + documented in this encounter Results VAS Carotid Duplex Bilateral (09/12/2015 11:00 PM PDT) + + | Specimen | + + | | + + + + + | Narrative | Performed At | + + + | This is a non-reportable procedure without a radiologist report and | | | is used for image storage only | | + + + + + | Procedure Note | + + | Chun Colón - 12/29/2018 9:58 AM PDT This is a non-reportable procedure | | without a radiologist report and isused for image storage only | + + documented in this encounter Visit Diagnoses + + | Diagnosis | + + | Pain Generalized pain | + + documented in this encounter"
--- OUTSIDE RECORDS SUMMARY | ~2019-04-17 | XMS | Encounter Summary ---
Demographics + + + | Address | [address] | | | [place] [address] | + + + | Home Phone | | + + + | Preferred Language | Unknown | + + + | Marital Status | Single | + + + | Pentecostalism Affiliation | 1041 | + + + | Race | Unknown | + + + | Ethnic Group | Unknown | + + + Author + + + | Author | [facility] | | | and [place] | + + + | Organization | [facility] | [...] Team Providers + +------+ + | Care Assembly Line Machine Operator Name | Role | Phone | + +------+ + | Dominic Carlin MD | PCP | | + +------+ + Reason for Visit +--------+ + | Reason | Comments | +--------+ + | Other | | +--------+ + Encounter Details +--------+ + + + + | Date | Type | Department | Care Team | Description | +--------+ + + + + | 01/30/ | Telephone | [facility] | Wes Melvin MD | Other | | 2013 | | NEUROSURGERY [address] | [address] | | | | | [address] | [place] [address] | | | | | [place] | [phone] | | | | | [address] | | | | | | [phone] | | | +--------+ + + + [...]
--- OUTSIDE RECORDS SUMMARY | ~2019-04-17 | XMS | Encounter Summary ---
Demographics + + + | Address | [address] | | | [place] [address] | + + + | Home Phone [...] | Organization | [facility] | | | and [...] Team Providers + +------+ + | Care Chipper Name | Role | Phone | + +------+ + PCP | Unavailable | + +------+ + Encounter Details +--------+ + + + + | Date | Type | Department | Care Team | Description | +--------+ + + + + | 05/16/ | Hospital | [facility] | Conversion | DDD (degenerative | | 2012 | Encounter | [facility] | Transaction, | disc disease); | | | | [address] | Provider Unknown | Neuralgia; Arterial | | | | [place], [place] | | ischemic stroke, | | | | [address] | (Fax) | MCA, left, presumed | | | | [phone] | | (HCC); | | | | [...] ISA Alford ALEXANDER1945MRI BRAIN WO | | GEYFPGVP43/31/2013 2:28 PM HISTORY: Underlying history of previous [...]
--- OUTSIDE RECORDS SUMMARY | ~2019-04-17 | XMS | Encounter Summary ---
Demographics + + + | Address | [address] | | | [place] [address] | + + + | Home Phone [...] Author + + + | Author | [facility] | + + + | Organization | [facility] | + + + | Address | Unknown | + + + | Phone | Unavailable | + + + Support + + +---------+ + | Name | Relationship | Address | Phone | + + +---------+ + | Gautam Ray | ECON | Unknown | | + + +---------+ + Care Team Providers + +------+ + | Care Cnc Mechanic Name | Role | Phone | + [...] [address] | | | | | | [place], [place] | | | | | | [address] | | | +--------+ + + + [...]
--- OUTSIDE RECORDS SUMMARY | ~2019-04-17 | XMS | Encounter Summary ---
Demographics + + + | Address | [address] | | | [place] [address] | + + + | Home Phone | | + + + | Preferred Language | Unknown | + + + | Marital Status | Single | + + + | Taoist Affiliation | 1041 | + + + | Race | Unknown | + + + | Ethnic Group | Unknown | + + + Author + + + | Author | [facility] | | | and [place] | + + + | Organization | [facility] | | | and [...] Team Providers + +------+ + | Care Tax Professional Name | Role | Phone | + +------+ + | Dominic Carlin MD | PCP | | + +------+ + Encounter Details +--------+ + + + + | Date | Type | Department | Care Team | Description | +--------+ + + + + | 05/30/ | Orders Only | [facility] | Wes Melvin MD | Cervical cord | | 2015 | | NEUROSURGERY [address] | [address] | myelomalacia (HCC) | | | | [address] | [place] [address] | (Primary Dx); | | | | [place] | [phone] | Cervical spondylosis | | | | [address] | | with myelopathy; | | | | [phone] | | Essential | | | | [...] on filedocumented as of this encounter Results ECG 12 lead (07/12/2014 8:39 AM PST) + + + | Narrative | Performed At | + + + | Issa Garibay MD 07/12/2014 8:39 Adult ECG Report | | | Name: Buck Bell Age: 69 y.o. Gender: male 07/11/14 | | | at 10:36 Narrative Interpretation: His bradycardia. Normal axis. | | | Normal intervals. | | + + + XR Chest PA and Lateral (07/11/2014 10:51 [...] + + | [facility] | [address] | [place] | [phone] | | [facility] | | [address] | | | - IMAGING | | | | + + + + + CBC with Differential (07/11/2014 10:29 AM PST) + + + + + + | Component | Value | Ref Range | Performed | Pathologist | | | | | At | Signature | + + + + + + | WBC | 9.1 | 4.0 - 11.0 K/uL | [facility] | | | | | [facility] | | [facility] | | [facility] | | | | | | [facility] - | | | | | | LABORATORY | | + + + + + + | RBC | 4.68 | 4.30 - 5.70 | [facility] | | | | | M/uL | [facility] | | | | | | [facility] | | | | | | CENTER - | | | | | | LABORATORY | | + + + + + + | Hemoglobin | 14.8 | 13.5 - 18.0 | [facility] | | | | | g/dL | [facility] | | | | | | [facility]ICAL | | | | | | CENTER - | | | | | | LABORATORY | | + + + + + + | Hematocrit | 43.9 | 40.0 - 51.0 % | [facility] | | | | | | [facility] | | | | | | [facility]ICAL | | | | | | CENTER - | | | | | | LABORATORY | | + + + + + + | MCV | 93.8 | 83.0 - 101.0 fL | [facility] | | | | | | [facility] | | | | | | [facility]ICAL | | | | | | CENTER - | | | | | | LABORATORY | | + + + + + + | MCH | 31.6 | 28.0 - 35.0 pg | [facility] | | | | | | [facility] | | | | | | [facility]ICAL | | | | | | CENTER - | | | | | | LABORATORY | | + + + + + + | MCHC | 33.7 | 32.0 - 36.0 | [facility] | | | | | g/dL | [facility] | | | | | | [facility] | | | | | | CENTER - | | | | | | LABORATORY | | + + + + + + | RDW-CV | 13.9 | <15.0 % | [facility] | | | | | | [facility] | | | | | | [facility]ICAL | | | | | | CENTER - | | | | | | LABORATORY | | + + + + + + | Platelet | 220 | 140 - 440 K/uL | [facility] | | | Count | | | [facility] | | | | | | [facility]ICAL | | | | | | CENTER - | | | | | | LABORATORY | | + + + + + + | MPV | 7.0 | fL | [facility] | | | | | | [facility] | | | | | | [facility]ICAL | | | | | | CENTER - | | | | | | LABORATORY | | + + + + + + | % | 64.0 | 45.0 - 82.0 % | [facility] | | | Neutrophils | | | [facility] | | | | | | MEDICAL | | | | | | CENTER - | | | | | | LABORATORY | | + + + + + + | % | 5.8 (L) | 20.0 - 45.0 % | [facility] | | | Lymphocytes | | | [facility] | | | | | | MEDICAL | | | | | | CENTER - | | | | | | LABORATORY | | + + + + + + | % Monocytes | 10.6 | 4.0 - 12.0 % | [facility] | | | | | | [facility] | | | | | | [facility]ICAL | | | | | | CENTER - | | | | | | LABORATORY | | + + + + + + | % | 18.5 (H) | 0.0 - 5.0 % | [facility] | | | Eosinophils | | | [facility] | | | | | | MEDICAL | | | | | | CENTER - | | | | | | LABORATORY | | + + + + + + | % Basophils | 1.1 (H) | 0.0 - 1.0 % | [facility] | | | | | | [facility] | | | | | | MEDICAL | | | | | | CENTER - | | | | | | LABORATORY | | + + + + + + | Absolute | 5.90 | 1.80 - 8.50 | [facility] | | | Neutrophils | | K/uL | [facility] | | | | | | [facility]ICAL | | | | | | CENTER - | | | | | | LABORATORY | | + + + + + + | Absolute | 0.50 (L) | 0.60 - 3.20 | [facility] | | | Lymphocytes | | K/uL | [facility] | | | | | | [facility]ICAL | | | | | | CENTER - | | | | | | LABORATORY | | + + + + + + | Absolute | 1.00 | 0.00 - 1.00 | [facility] | | | Monocytes | | K/uL | [facility] | | | | | | [facility] | | | | | | CENTER - | | | | | | LABORATORY | | + + + + + + | Absolute | 1.70 (H) | 0.00 - 0.40 | [facility] | | | Eosinophils | | K/uL | [facility] | | | | | | [facility] | | | | | | CENTER - | | | | | | LABORATORY | | + + + + + + | Absolute | 0.10 | 0.00 - 0.10 | [facility] | | | Basophils | | K/uL | [facility] | | | | | | MEDICAL | | | | | | CENTER - | | | | | | LABORATORY | | + + + + + + + + | Specimen | + + | Blood | + + + + + + + | Performing | Address | City/State/[facility] | Phone Number | | Organization | | | | + + + + + | [facility] | [address] | [place] | [phone] | | [facility] | | [address] | | | - LABORATORY | | | | + + + + + | [facility] | [address] | [place] | | | [facility] | | [address] | | | - LABORATORY | | | | + + + + + Basic Metabolic Panel (07/11/2014 10:29 AM PST) + + + + + + | Component | Value | Ref Range | Performed | Pathologist | | | | | At | Signature | + + + + + + | Na | 133 (L) | 136 - 149 | [facility] | | | | | mmol/L | [facility] | | | | | | [facility]ICAL | | | | | | CENTER - | | | | | | LABORATORY | | + + + + + + | K | 4.4 | 3.5 - 5.1 | [facility] | | | | | mmol/L | [facility] | | | | | | MEDICAL | | | | | | CENTER - | | | | | | LABORATORY | | + + + + + + | Cl | 98 | 98 - 109 mmol/L | [facility] | | | | | | [facility] | | | | | | MEDICAL | | | | | | CENTER - | | | | | | LABORATORY | | + + + + + + | CO2 | 25 | 24 - 31 mmol/L | [facility] | | | | | | [facility] | | | | | | MEDICAL | | | | | | CENTER - | | | | | | LABORATORY | | + + + + + + | Anion Gap | 10 | 3 - 16 mmol/L | [facility] | | | | | | [facility] | | | | | | MEDICAL | | | | | | CENTER - | | | | | | LABORATORY | | + + + + + + | Glucose | 91 | 70 - 109 mg/dL | [facility] | | | | | | [facility] | | | | | | [facility]ICAL | | | | | | CENTER - | | | | | | LABORATORY | | + + + + + + | BUN | 13 | 7 - 18 mg/dL | [facility] | | | | | | [facility] | | | | | | [facility]ICAL | | | | | | CENTER - | | | | | | LABORATORY | | + + + + + + | Creatinine | 0.77 | 0.60 - 1.30 | [facility] | | | | | mg/dL | [facility] | | | | | | [facility]ICAL | | | | | | CENTER - | | | | | | LABORATORY | | + + + + + + | eGFR if not | >60Comment: GLOMERULAR | >=60 | [facility] | | | | FILTRATION | mL/min/1.73m2 | [facility] | | | THAI | RATE,ESTIMATED | | MEDICAL | | | | mL/min/1.16e2Irdj than | | CENTER - | | | | 60 Chronic kidney | | LABORATORY | | | | disease,if found over a | | | | | | 3-month period.Less than | | | | | | 15 Kidney failureFor | | | | | | | | | | | | Americans,multiply the | | | | | | calculated GFR by 1.21. | | | | | | | | | | + + + + + + | Calcium | 8.8 | 8.3 - 10.5 | [facility] | | | | | mg/dL | [facility] | | | [facility] | | MEDICAL | | | | | | CENTER - | | | | | | LABORATORY | | + + + + + + | BUN/Creatin | 16.9 | | [facility] | | | ine Ratio | | | [facility] | | | | | | [facility] | | | | | | CENTER - | | | | | | LABORATORY | | + + + + + + + + | Specimen | + + | Blood | + + + + + + + | Performing | Address | City/State/Zipcode | Phone Number | | Organization | | | | + + + + + | [facility] | [address] | [place], [place] | [phone] | | [facility] | | [address] | | | - LABORATORY | | | | + + + + + | [facility] | 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
--- OUTSIDE RECORDS SUMMARY | ~2019-04-17 | XMS | Encounter Summary ---
Demographics + + + | Address | [address] | | | [place] [address] | + + + | Home Phone [...] Author + + + | Author | [facility] | | | and [place] | + + + | Organization | [facility] | | | and [...] Team Providers + +------+ + | Care Stave Hewer Name | Role | Phone | + [...] | | | | | | | [place] | | | | | | | [...] + + | 07/26/ | Anesthesia | [facility] | Jaswant Calix MD | | | 2015 | Event | MED CTR OR INTRA OP | [address] | | | | | [address] | [place] | | | | | [place] | [address] | | | | | [address] | [phone] | | | | | [phone] | | | +--------+ + + + [...]
--- OUTSIDE RECORDS SUMMARY | ~2019-04-17 | XMS | Encounter Summary ---
Demographics + + + | Address | [address] | | | [place] [address] | + + + | Home Phone | | + + + | Preferred Language | Unknown | + + + | Marital Status | Single | + + + | Islam Affiliation | 1041 | + + + | Race | Unknown | + + + | Ethnic Group | Unknown | + + + Author + + + | Author | [facility] | | | and [place] | + + + | Organization | [facility] | | [...] Team Providers + +------+ + | Care Starch Crab Name | Role | Phone | + [...] | | [address] | [place] [address] | | | | | [place] | [phone] | | | | | [address] | | | | | | [phone] | | | +--------+ + + + [...]
--- OUTSIDE RECORDS SUMMARY | ~2019-04-17 | XMS | Encounter Summary ---
Demographics + + + | Address | [address] | | | [place] [address] | + + + | Home Phone | | + + + | Preferred Language | Unknown | + + + | Marital Status | Single | + + + | Worship Affiliation | 1041 | + + + | Race | Unknown | + + + | Ethnic Group | Unknown | + + + Author + + + | Author | [facility] | | | and [place] | + + + | Organization | [facility] | | | and [...] Team Providers + +------+ + | Care Technical Laboratory Asst Name | Role | Phone | + [...] | | [address] | [place] [address] | | | | | [place] | [phone] | | | | | [address] | | | | | | [phone] | | | +--------+ + + + [...]
--- OUTSIDE RECORDS SUMMARY | ~2019-04-17 | XMS | Encounter Summary ---
Demographics + + + | Address | [address] | | | [place] [address] | + + + | Home Phone [...] | Organization | [facility] | | | and [place] [...] Team Providers + +------+ + | Care Wallpaper Remover Steam Name | Role | Phone | + [...] | | | | | | | [place] | | | | | | | [...] + + | 07/26/ | Hospital | [facility] | Wes Melvin MD | | | 2015 - | Encounter | MED CTR SURGICAL | [address] | | | | | [address] | [place] [address] | | | 07/27/ | | [place] [address] | [phone] | | | 2015 | | [phone] | | | +--------+ + + + [...] might be differen t from the original. [facility] NEUROSURGERY DISCHARGE SUMMARY Patient Name: Buck Bell [...] Care Everywhere.CERVICAL FUSION , DISCHARGE INSTRUCTIONS FOR (ROMANIAN)documented in this encounter Medications at Time of [...] | | | | | | | [facility] 07/26/14 at 1800, For 2 doses, [...] PDT | | | | | Starting [facility] 07/26/14 at 1516, | | | [...] PDT | | | | | Starting [facility] 07/26/14 at 1516, | | | [...] PDT | | | | | Starting [facility] 07/26/14 at 1516, | | | [...] | | | | | | use [place] 10/325 if ordered. If | | | [...] | | | | | | | [facility] 07/26/14 at 1321, Hold if HR [...] | | | | | CONTINUOUS, Starting [facility] 07/26/14 | | AM PDT | [...] AM PDT | | | | | [facility] 07/26/14 at 1545, If | | [...]
--- OUTSIDE RECORDS SUMMARY | ~2019-04-17 | XMS | Encounter Summary ---
Demographics + + + | Address | [address] | | | [place] [address] | + + + | Home Phone | | + + + | Preferred Language | Unknown | + + + | Marital Status | Single | + + + | Mandaen Affiliation | Unknown | + + + | Race | or | + + + | Ethnic Group | Not or | + + + Author + + + | Author | [facility] | + + + | Organization | [facility] | + + + | Address | Unknown | + + + | Phone | Unavailable | + + + Support + + +---------+ + | Name | Relationship | Address | Phone | + + +---------+ + | Gautam Ray | ECON | Unknown | | + + +---------+ + Care Team Providers + +------+ + | Care Server Manager Name | Role | Phone | + +------+ + PCP | Unavailable | + +------+ + Encounter Details +--------+ + + + + | Date | Type | Department | Care Team | Description | +--------+ + + + + | 06/29/ | Documentati | Orthopaedics at | Oscar Mcclellan MD | | | 2008 | on | [facility] [address] | [address] | | | | | [place] Mailcode: [address] | [place], | | | | | [facility] | [place] [address] | | | | | and Healing, | [phone] | | | | | | | | | | | Floor [place], [place] | | | | | | [address] | | | | | | [phone] | | | +--------+ + + + [...]
--- OUTSIDE RECORDS SUMMARY | ~2019-04-17 | XMS | Encounter Summary ---
Demographics + + + | Address | [address] | | | [place] [address] | + + + | Home Phone | | + + + | Preferred Language | Unknown | + + + | Marital Status | Single | + + + | Faith Affiliation | 1041 | + + + | Race | Unknown | + + + | Ethnic Group | Unknown | + + + Author + + + | Author | [facility] | | | and [place] | + + + | Organization | [facility] | | | and [place] | + + + | Address | Unknown | + + + | Phone | Unavailable | + + + Support + + +---------+ + | Name | Relationship | Address | Phone | + + +---------+ + | Gyu Bell | ECON | Unknown | | + + +---------+ + Care Team Providers + +------+ + | Care President [employer] Name | Role | Phone | + +------+ + | Dominic Carlin MD | PCP | | + +------+ + Encounter Details +--------+ + + + + | Date | Type | Department | Care Team | Description | +--------+ + + + + | 07/11/ | Preadmit | [facility] | Wes Melvin MD | Cervical cord | | 2015 | Visit | [facility] | [address] | myelomalacia (HCC); | | | | CLINIC [address] | [place] [address] | Cervical spondylosis | | | | [place] | [phone] | with myelopathy; | | | | [address] | | Essential | | | | [...] + | CBC WITH | Routin | 07/11/2014 | Cervical cord | Results for this | | DIFFERENTIAL | e | 10:29 AM | myelomalacia (HCC) | procedure are [...] + | BASIC METABOLIC | Routin | 07/11/2014 | Cervical cord | Results for this | | PANEL | e | 10:29 AM | myelomalacia (HCC) | procedure are [...] + + documented in this encounter Results CBC with Differential (07/11/2014 10:29 AM PST) [...] | Neutrophils | | K/uL | [facility] | | | | | | MED[facility] | | | | | | CENTER - | | | | | | LABORATORY | | + + + + + + | Absolute | 0.50 (L) | 0.60 - 3.20 | [facility] | | | Lymphocytes | | K/uL | [facility] | | | | | | MEDICAL | | | | | | CENTER - | | | | | | LABORATORY | | + + + + + + | Absolute | 1.00 | 0.00 - 1.00 | [facility] | | | Monocytes | | K/uL | [facility] | | | | | | MEDICAL | | | | | | CENTER - | | | | | | LABORATORY | | + + + + + + | Absolute | 1.70 (H) | 0.00 - 0.40 | [facility] | | | Eosinophils | | K/uL | [facility] | | | | | | MEDICAL | | | | | | CENTER - | | | | | | LABORATORY | | + + + + + + | Absolute | 0.10 | 0.00 - 0.10 | [facility] | | | Basophils | | K/uL | [facility] | | | | [...] + | [facility] | [address] | [place], [place] | [phone] | | [facility] | | [address] | | | - LABORATORY | | | | + + + + + | [facility] | [address] | [place], [place] | | | [facility] | | [address] | | | - LABORATORY | | [...] | | | | mmol/L | [facility] | | | | | | MEDICAL | | | | | | CENTER - | | | | | | LABORATORY | | + + + + + + | K | 4.4 | 3.5 - 5.1 | [facility] | | | | | mmol/L | [facility] | | | | [...] [facility] | | | | | | [facility] | | | | | | [...] | 0.77 | 0.60 - 1.30 | [facility] | | | | | mg/dL | [facility] | | | | | | MEDICAL | | | | | | CENTER - | | | | | | LABORATORY | | + + + + + + | eGFR if not | >60Comment: GLOMERULAR | >=60 | [facility] | | | | FILTRATION | mL/min/1.73m2 | [facility] | | | BERMUDIAN | RATE,ESTIMATED | | MEDICAL | | | | mL/min/1.94o3Pqhw than | | CENTER - | | [...] | | | | | mg/dL | [facility] | | | | | | MEDICAL | | | | | | CENTER - | | | | | | LABORATORY | | + + + + + + | BUN/Creatin | 16.9 | | [facility] | | | ine Ratio | | | [facility] | | [...] | + + + + + | [facility] | [address] | [place], [place] | [phone] | | [facility] | | [address] | | | - LABORATORY | | | | + + + + + | [facility] | [address] | [place], [place] | | | [facility] | | [address] | | | - LABORATORY | | [...]
--- OUTSIDE RECORDS SUMMARY | ~2019-04-17 | XMS | Encounter Summary ---
Demographics + + + | Address | [address] | | | [place] [address] | + + + | Home Phone [...] + + + | Author | [facility] | | | and [place] | + + + | Organization | [facility] [...] Team Providers + +------+ + | Care Truss Driver Helper Name | Role | Phone | [...] | | | | | | | CT | | | | | | | [...] + + | 07/26/ | Hospital | [facility] | Wes Melvin MD | | | 2015 - | Encounter | MED CTR SURGICAL | [address] | | | | | [address] | [place] [address] | | | 07/27/ | | [place] [address] | [phone] | | | 2015 | | [phone] | | | +--------+ + + + [...] might be differen t from the original. [facility] [address] NEUROSURGERY DISCHARGE SUMMARY Patient Name: Buck Bell [...] Care Everywhere.CERVICAL FUSION , DISCHARGE INSTRUCTIONS FOR (TURKISH)documented in this encounter Medications at Time of [...] | | | | | | | [facility] 07/26/14 at 1800, For 2 doses, [...] PDT | | | | | Starting [facility] 07/26/14 at 1516, | | | [...] PDT | | | | | Starting [facility] 07/26/14 at 1516, | | | [...] PDT | | | | | Starting [facility] 07/26/14 at 1516, | | | [...] | | | | | | use [place] 10/325 if ordered. If | | | [...] | | | | | | | [facility] 07/26/14 at 1321, Hold if HR [...] | | | | | CONTINUOUS, Starting [facility] 07/26/14 | | AM PDT | [...] AM PDT | | | | | [facility] 07/26/14 at 1545, If | | [...]
--- OUTSIDE RECORDS SUMMARY | ~2019-04-17 | XMS | Encounter Summary ---
Demographics + + + | Address | [address] | | | [place] [address] | + + + | Home Phone | | + + + | Preferred Language | Unknown | + + + | Marital Status | Single | + + + | Church Affiliation | 1041 | + + + | Race | Unknown | + + + | Ethnic Group | Unknown | + + + Author + + + | Author | and [facility] | | | and [place] | + + + | Organization | and 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 | | + + + documented in [...]
--- OUTSIDE RECORDS SUMMARY | ~2019-04-17 | XMS | Encounter Summary ---
Demographics + + + | Address | [address] | | | [place] [address] | + + + | Home Phone | | + + + | Preferred Language | Unknown | + + + | Marital Status | Single | + + + | Yazidism Affiliation | 1041 | + + + | Race | Unknown | + + + | Ethnic Group | Unknown | + + + Author + + + | Author | [facility] | | | and [place] | + + + | Organization | [facility] | | | and [...] Team Providers + +------+ + | Care Mds Nurse Name | Role | Phone | + +------+ + | Dominic Carlin MD | PCP | | + +------+ + Encounter Details +--------+ + + + + | Date | Type | Department | Care Team | Description | +--------+ + + + + | 07/27/ | Hospital | [facility] | Giovana Thomas, | | | 2014 | Encounter | MED CTR ACUTE | PT [address] | | | | | PHYSICAL THERAPY | [place] | | | | | [address] | [address] | | | | | [place] [address] | | | | | | [phone] | | | +--------+ + + + [...]
--- OUTSIDE RECORDS SUMMARY | ~2019-04-17 | XMS | Encounter Summary ---
Demographics + + + | Address | [address] | | | [place] [address] | + + + | Home Phone [...] | [facility] | | | and [place] [...] Team Providers + +------+ + | Care Renewable Energy Technician Name | Role | Phone | [address] | | | | | | [place] | | | | | | [address] | | | | | | [phone] | | | +--------+ + + + [...]
--- OUTSIDE RECORDS SUMMARY | ~2019-04-17 | XMS | Encounter Summary ---
Demographics + + + | Address | [address] | | | [place] [address] | + + + | Home Phone | | + + + | Preferred Language | Unknown | + + + | Marital Status | Single | + + + | Baptist Affiliation | 1041 | + + + | Race | Unknown | + + + | Ethnic Group | Unknown | + + + Author + + + | Author | [facility] | | | and [place] | + + + | Organization | [facility] | | | and [...] Team Providers + +------+ + | Care Signals Intelligence Superintendent Name | Role | Phone | + +------+ + PCP | Unavailable | + +------+ + Encounter Details +--------+ + + + + | Date | Type | Department | Care Team | Description | +--------+ + + + + | 08/01/ | Hospital | [facility] | Helio Fountain | | | 2005 | Encounter | CONVERSION [address] | [address] | | | | | [place] | | | | | | [place] | | | | | | [address] | | | | | | [phone] | | | +--------+ + + + [...]
--- OUTSIDE RECORDS SUMMARY | ~2019-04-17 | XMS | Encounter Summary ---
Demographics + + + | Address | [address] | | | [place] [address] | + + + | Home Phone | | + + + | Preferred Language | Unknown | + + + | Marital Status | Single | + + + | Adventist Affiliation | 1041 | + + + | Race | Unknown | + + + | Ethnic Group | Unknown | + + + Author + + + | Author | [facility] | | | and [place] | + + + | Organization | [facility] | | | and [place] | [...] Team Providers + +------+ + | Care Belt Worker Name | Role | Phone | [address] | | | | | | [place] | | | | | | [address] | | | | | | [phone] | | | +--------+ + + + [...]
--- OUTSIDE RECORDS SUMMARY | ~2019-04-17 | XMS | Encounter Summary ---
Demographics + + + | Address | [address] | | | [place] [address] | + + + | Home Phone [...] + | Organization | [facility] | | [...] Team Providers + +------+ + | Care Teaching Dietitian Name | Role | Phone | + [...] | +--------+ + + + + | 07/31/ | Telephone | [facility] [place] | Wes Melvin MD | Appointment | | 2013 | | NEUROSURGERY [address] | [address] | | | | | [address] [facility] [address] | [place] [address] | | | | | [place] | [phone] | | | | | [address] | | | | | | [phone] | | | +--------+ + + + [...]
--- OUTSIDE RECORDS SUMMARY | ~2019-04-17 | XMS | Encounter Summary ---
Demographics + + + | Address | [address] | | | [place] [address] | + + + | Home Phone [...] + | Author | [facility] | | | and [place] | + + + | Organization | [facility] | [...] Team Providers + +------+ + | Care Insurance Claims Processor Name | Role | Phone | + [...] | | | | | | | [place] | | | | | | | [...] + + | 07/26/ | Surgery | [facility] | Wes Melvin MD | C3-4, C4-5, C5-6, | | 2014 | | MED CTR OR INTRA OP | [address] | C6-7 Anterior | | | | [address] | [place] [address] | Cervical Discectomy | | | | [place] | [phone] | Fusion | | | | [address] | | | | | | [phone] | | | +--------+---------+ + + + [...] might be differen t from the original. [facility] NEUROSURGERY DISCHARGE SUMMARY Patient Name: Buck [...] Care Everywhere.CERVICAL FUSION , DISCHARGE INSTRUCTIONS FOR (SWEDISH)documented in this encounter Medications at Time of [...] has difficulty lifting his arms up above [facility] d/t weak deltiod/upper arms. Pt had a shuffle gait and used the wall and furniture to help keep his balance. Chevy martinez [facility]. Spoke with PT and she provided [...] + | Performing | Address | City[facility] | Phone Number | | Organization [...]
--- OUTSIDE RECORDS SUMMARY | ~2019-04-17 | XMS | Encounter Summary ---
Demographics + + + | Address | [address] | | | [place] [address] | + + + | Home Phone [...] | Organization | [facility] | | | and [place] [...] Team Providers + +------+ + | Care Solid Waste Engineer Name | Role | Phone | [...] | | | | | Degenerative | [place], [place] | | | | | | disc | [address] | | | | | | disease, | Phone: | | | | | | cervical | [phone] | | | | | | Cervical | Fax: | | | | | | cord | [phone] | | | | | | myelomalacia | | | | | | | ([facility]) S/P | | | | [...] | (Primary Dx); | | | | [place], [place] | [place] [address] | Degenerative disc | | | | [address] | [phone] | disease, cervical; | | | | [phone] | | Cervical cord | | | [...] t from the original. NICKOLAS Ponce [address] [facility], [address] [place] [address] FAX: NEUROSURGERY SURGICAL FOLLOW-UP CHIEF COMPLAINT: Chief [...] Overall, the patient is doing well. 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 FINDINGS: Visualized | [facility] | | skull base and [...] | + + + + + | [facility] | [address] | [place], [place] | [phone] | | [facility] | | [address] | | | - IMAGING | | [...]
--- OUTSIDE RECORDS SUMMARY | ~2019-04-17 | XMS | Clinical Summary ---
Demographics + + + | Address | [address] | | | [place] [address] | + + + | Home Phone | | + + + | Preferred Language | Unknown | + + + | Marital Status | Single | + + + | Yarsani Affiliation | 1041 | + + + | Race | Unknown | + + + | Ethnic Group | Unknown | + + + Author + + + | Author | [employer] (Historical as of | | | 12-31-18) | + + + | Organization | [email or web address] (Historical as of | | | 12-31-18) [...] Providers + +------+ + | Care Director Business Travel Name | Role | Phone | + [...] | + +--------+ +------+ + + | /[facility] | YELLOW | [id number] | | | | | PLANS | [place] | | | | | + +--------+ +------+ + + | MEDICARE | MEDICA | [id number] | | | [address] | | | RE | | | | [place] [address] | | | IP-OP | | | | | + +--------+ +------+ + + | VETERANS | VETERA | [id number] | | [phone] [employer] [employer] [address] | | ADMINISTRATION | [place] | | | [phone] | | | [address]MINI | | | | [address] [place] | | | [place] | | | | [address] | | | ON | | | [...] | Self | [birth year] | Home: | [address] | | | al/Fam | | 1945 | +- | [place], [place] | | | carolyn | | | [address] | [address] | + +--------+ +--------+ + + | ISA OSMAN | Vetera | Self | [birth year] | Home: | [address] | | | ns | | 1945 | +- | [place] | | | Admini | | | [address] | [address] | | | strati | | | | | | | on | | | | | + +--------+ +--------+ + +
--- OUTSIDE RECORDS SUMMARY | ~2019-04-17 | XMS | Encounter Summary ---
Demographics + + + | Address | [address] | | | [place] [address] | + + + | Home Phone | | + + + | Preferred Language | Unknown | + + + | Marital Status | Single | + + + | Bahai Affiliation | 1041 | + + + | Race | Unknown | + + + | Ethnic Group | Unknown | + + + Author + + + | Author | [facility] | | | and [place] | + + + | Organization | [facility] | | | and [...] Team Providers + +------+ + | Care Turbine Operator Name | Role | Phone | + +------+ + | Dominic Carlin MD | PCP | | + +------+ + Encounter Details +--------+ + + + + | Date | Type | Department | Care Team | Description | +--------+ + + + + | 01/19/ | [facility] | [facility] | Wes Melvin MD | Spinal stenosis; | | 2013 | Encounter | MED CTR XRAY [address] | [address] | Neck pain | | | | [place] | [place] [address] | | | | | [place] [address] | [phone] | | | | | [phone] | | | +--------+ + + + [...] COMPARISON: CERVICAL MRI MAY 16, 2013 FROM [facility] | LAB | | [facility] FINDINGS: An AP view and [...] PAINCOMPARISON: CERVICAL MRI MAY 16, 2013 FROM [facility] | | MEDICAL CENTERFINDINGS: An AP view [...] + | MISCELLANEOUS LAB | | | [phone] | + +---------+ + + | MISCELANIOUS LAB | | | [phone] | + +---------+ + + documented in this encounter Visit Diagnoses + + | Diagnosis | + + | Spinal stenosis Spinal stenosis, unspecified region other than cervical | + + | Neck pain Cervicalgia | + + documented in this encounter"
--- OUTSIDE RECORDS SUMMARY | ~2019-04-17 | XMS | Encounter Summary ---
Demographics + + + | Address | [address] | | | [place] [address] | + + + | Home Phone | | + + + | Preferred Language | Unknown | + + + | Marital Status | Single | + + + | Hinduism Affiliation | Unknown | + + + | Race | or | + + + | Ethnic Group | Not or | + + + Author + + + | Author | [facility] | + + + | Organization | [facility] | + + + | Address | Unknown | + + + | Phone | Unavailable | + + + Support + + +---------+ + | Name | Relationship | Address | Phone | + + +---------+ + | Gautam Ray | ECON | Unknown | | + + +---------+ + Care Team Providers + +------+ + | Care Lead Etl Developer Name | Role | Phone | [...] | | | | | | [place], | | | | | | | [place] | | | | | | | [address] | | | | | | | Phone: | | | | | | | [phone] | | | | | | | Fax: | | | | | | | [phone] | +--------+--------+ + + + + Encounter Details +--------+ + + + + | Date | Type | Department | Care Team | Description | +--------+ + + + + | 04/17/ | Procedure | Orthopaedics at | Oscar Mcclellan MD | EMG - | | 2007 | | [facility] [address] | [address] | Electromyography | | | | Ave Mailcode: CH12A | [place], | | | | | [facility] | [place] [address] | | | | | and Healing, | [phone] | | | | | Building | | | | | | Floor [place], [place] | | | | | | [address] | | | | | | [phone] | | | +--------+ + + + [...] + + documented as of this encounter Oscar Mckinney - 04/17/2008 7:31 AM PST Buck Bell is a 63 y.o. 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 Electrodiagnostic st udies have been performed today. The data and waveforms have been scanned into [employer]. The summary is as follows: Motor Nerve [...] | + + +--------+ + + | OR MUSCLE TEST, ONE | Procedures | Routin | Carpal Tunnel | Ordered: 04/17/2008 | | LIMB | | e | Syndrome Ulnar | | | | | | Neuritis Cervical | | | | | | Radiculitis | | + + +--------+ + + | OR MOTOR NERVE | Procedures | Routin | Carpal Tunnel | Ordered: 04/17/2008 | | CONDUCT TEST, W | | e | Syndrome Ulnar | | | F-WAVE | | | Neuritis Cervical | | | | | | Radiculitis | | + + +--------+ + + | OR NERVE | Procedures | Routin | Carpal [...]
--- OUTSIDE RECORDS SUMMARY | ~2019-04-17 | XMS | Encounter Summary ---
Demographics + + + | Address | [address] | | | [place] [address] | + + + | Home Phone | | + + + | Preferred Language | Unknown | + + + | Marital Status | Single | + + + | Cheondoism Affiliation | Unknown | + + + | Race | or | + + + | Ethnic Group | Not or | + + + Author + + + | Author | [facility] | + + + | Organization | [facility] | + + + | Address | Unknown | + + + | Phone | Unavailable | + + + Support + + +---------+ + | Name | Relationship | Address | Phone | + + +---------+ + | Gautam Ray | ECON | Unknown | | + + +---------+ + Care Team Providers + +------+ + | Care Explosive Expert Name | Role | Phone | [...] in shoulder | [address] | [place], | | | | | region, | [place], [place] | [place] | | | | | unspecified | [address] | [address] | | | | | Procedures | Phone: | Phone: | | | | | CONSULT TO | [phone] | [phone] | | | | | ORTHOPEDICS | | Fax: | | | | | AND | | [phone] | | | | | REHABILITATI | [...] | | | | | | [place], | | | | | | | [place] | | | | | | | [address] | | | | | | | Phone: | | | | | | | [phone] | | | | | | | Fax: | | | | | | | [phone] | +--------+--------+ + + + + Encounter Details +--------+---------+ + + + | Date | Type | Department | Care Team | Description | +--------+---------+ + + + | 02/08/ | Office | Orthopaedics at | Jaswant Angeles MD | Shoulder Pain; | | 2007 | Visit | [facility] [address] | [address] | Unspecified | | | | Ave Mailcode: CH12A | [address] | Disorders of Bursae | | | | [facility] | [place], [place] | and Tendons in | | | | and Healing, | [address] | Shoulder Region | | | | | [phone] | | | | | Floor [place], [place] | | | | | | [address] | | | | | | [phone] | | | +--------+---------+ + + + [...] Notes Jaswant Angeles - 02/13/2008 5:45 PM Jayy you for asking me to consult with this 63 y.o . right-hand dominant male for assessment of left shoulder dysfunction of 9 months duration. The symptoms are inability to raise his arm with very little pain. The patient has underg one physical therapy without significant chcf benefit. He has a history of left [...] | | + +---------+ + + | [facility] DEPARTMENT OF | | | | | [...]
--- OUTSIDE RECORDS SUMMARY | ~2019-04-17 | XMS | Encounter Summary ---
Demographics + + + | Address | [address] | | | [place] [address] | + + + | Home Phone | | + + + | Preferred Language | Unknown | + + + | Marital Status | Single | + + + | Taoism Affiliation | 1041 | + + + | Race | Unknown | + + + | Ethnic Group | Unknown | + + + Author + + + | Author | [facility] | | | and [place] | + + + | Organization | [facility] | | | and [...] Team Providers + +------+ + | Care Instructional Material Director Name | Role | Phone | [...] | | | | | [address] [facility] [address] | [place] [address] | | | | | [place] | [phone] | | | | | [address] | | | | | | [phone] | | | +--------+ + + + [...]
--- OUTSIDE RECORDS SUMMARY | ~2019-04-17 | XMS | Encounter Summary ---
Demographics + + + | Address | [address] | | | [place] [address] | + + + | Home Phone [...] + | Organization | [facility] | | | and [place] [...] Team Providers + +------+ + | Care Battery Container Finishing Hand Name | Role | Phone | + [...] | | [address] | [place] [address] | | | | | [place] | [phone] | | | | | [address] | | | | | | [phone] | | | +--------+ + + + [...]
--- OUTSIDE RECORDS SUMMARY | ~2019-04-17 | XMS | Clinical Summary ---
Demographics + + + | Address | [address] | | | [place] [address] | + + + | Home Phone [...] Team Providers + +------+ + | Care Agency Sales Representative Name | Role | Phone | + +------+ + PCP | Unavailable | + +------+ + Source Comments JOSSUE is fully live on both [facility] Ambulatory and [facility] InPatient.[facility] Allergies No Known Allergies Medications + [...] | | | + +--------+ +--------+-------+---------+--------+ | [facility] | [place]ON [place]LANDER | xxxxxxxxx | Effect | | | [...] Person | Self | [birth year] | [address] | | | al/Cristi | | 1945 | [phone] | [place] | | | carolyn | | | 4 (Home) | [address] | | | | | | [phone] | | | | | | | 0 (Work) | | + +--------+ +--------+ + + | Buck Bell | Agency | Self | [birth year] | | [address] | | | | | 1945 | [phone] | [place] | | | | | | 4 (Home) | [address] | | | | | | [phone] | | | | | | | 0 (Work) | | + +--------+ +--------+ + + Advance Directives + + + + + | Type | Date Recorded | Patient | Explanation | | | | Circuit Recorder | | + + + + + | Advance | | | | | Directives and | | | | | Living Will | | | | + + + + + | Power of | | | | | Customer Account Administrator | | | | + + + + +
--- OUTSIDE RECORDS SUMMARY | ~2019-04-17 | XMS | Encounter Summary ---
Demographics + + + | Address | [address] | | | [place] [address] | + + + | Home Phone [...] + | Organization | [facility] | | | and [...] Team Providers + +------+ + | Care Bakery Manager Name | Role | Phone | + +------+ + PCP | Unavailable | + +------+ + Encounter Details +--------+ + + + + | Date | Type | Department | Care Team | Description | +--------+ + + + + | 11/24/ | Hospital | [facility] | Conversion | | | 2005 - | Encounter | CENTER SURGICAL [address] | Transaction, | | | | | KIMBERLY OSULLIVAN | Provider Unknown | | | 11/25/ | | ZAP[place]ARCISO | [phone] | | | 2005 | | [address] | (Fax) | | | | | [phone] | | | +--------+ + + + [...]
--- OUTSIDE RECORDS SUMMARY | ~2019-04-17 | XMS | Encounter Summary ---
Demographics + + + | Address | [address] | | | [place] [address] | + + + | Home Phone [...] | Organization | [facility] | | | and [...] Team Providers + +------+ + | Care Rayon Coner Name | Role | Phone | + [...] [place] | | | | | | [address] | | | | | | [phone] | | | +--------+ + + + [...]
--- OUTSIDE RECORDS SUMMARY | ~2019-04-17 | XMS | Encounter Summary ---
Demographics + + + | Address | [address] | | | [place] [address] | + + + | Home Phone [...] | [facility] | | | and [...] Providers + +------+ + | Care Bakery Machine Mechanic Name | Role | Phone | [...] | | | | | | | [place] | | | | | | | [...] + + | 07/26/ | Surgery | [facility] | Wes Melvin MD | C3-4, C4-5, C5-6, | | 2014 | | MED CTR OR INTRA OP | [address] | C6-7 Anterior | | | | [address] | [place] [address] | Cervical Discectomy | | | | [place] | [phone] | Fusion | | | | [address] | | | | | | [phone] | | | +--------+---------+ + + + [...] might be differen t from the original. [facility] NEUROSURGERY DISCHARGE SUMMARY Patient Name: [...] Care Everywhere.CERVICAL FUSION , DISCHARGE INSTRUCTIONS FOR (MAORI)documented in this encounter Medications at Time of [...] has difficulty lifting his arms up above [facility] d/t weak deltiod/upper arms. Pt had a shuffle gait and used the wall and furniture to help keep his balance. Chevy martinez [facility]. Spoke with PT and she provided [...] + + | Performing | Address | City/State[facility] | Phone Number | [...]
--- OUTSIDE RECORDS SUMMARY | ~2019-04-17 | XMS | Encounter Summary ---
Demographics + + + | Address | [address] | | | [place] [address] | + + + | Home Phone [...] Organization | [facility] | | | and [place] [...] Team Providers + +------+ + | Care Building Mechanic Name | Role | Phone | [...] | MD [address] | [address] | | | | | Procedures | [address] | [place], | | | | | MRI Lumbar | [place], | [place] | | | | | Spine [place] | [place] [address] | [address] | | | | | Contrast | Phone: | Phone: | | | | | | [phone] | [phone] | | | | | | Fax: | Fax: | | | | | | [phone] | [phone] | +--------+--------+ + + + + Diagnostic/Screening (Routine) +--------+--------+ + + + + | Status | Reason | Specialty | Diagnoses / | Referred By | Referred To | | | | | Procedures | Contact | Contact | +--------+--------+ + + + + | Closed | | Radiology | Diagnoses | Wes Melvin | [facility] | | | | | Cervical | MD [address] | [address] | | | | | spondylosis | [address] | [place], | | | | | with | [facility] | [place] | | | | | myelopathy | [place] [address] | [address] | | | | | Cervical | Phone: | Phone: | | | | | cord | [phone] | [phone] | | | | | myelomalacia | Fax: | Fax: | | | | | (HCC) | [phone] | [phone] | | | | | Degenerative | [...] | | | | | cervical | [place], | [place], [place] | | | | | region | [place] | [address] | | | | | Cervical | [address] | Phone: | | | | | nerve root | Phone: | [phone] | | | | | impingement | [phone] | Fax: | | | | | SPINAL | Fax: | [phone] | | | | | STENOSIS C4, | [phone] | | | | | | WITH NERVE | | | | | | | IMPINGEMENT | | | | | | | OF C3-C6 | | | | | | | Procedures | | | | | | | NC OFFICE | | | | | | [...] | | [address] | [place] [address] | (Primary Dx); | | | | [place] Nuñez [place] | [phone] | Cervical cord | | | | [address] | | myelomalacia ([facility]); | | | | [phone] | | Degenerative disc | | | [...] research this procedure more by going to: [email or web address] Click the Treatment Options link on the left column. Then, look for Anterior Cervical Discectomy and Fusion (ACDF). documented in this encounter Progress Notes Wes Melvin MD - 01/19/2014 9:08 AM PDTFormatting of this note might be different from t he original. Wes Melvin MD [address] [place] [address], [address] [place] [address] FAX: NEUROSURGERY HISTORY AND PHYSICAL EXAMINATION CHIEF [...] no apparent deficits with short or intermediate teacher memory. CRANIAL NERVES: II: Acuity is [...] Intrinsics 5 4 Ulnar Intrinsics 5 4 Mounter Automatic Strength 5 4 Hip Flexion 4 [...] + | MISCELLANEOUS LAB | | | [phone] | + +---------+ + + | MISCELANIOUS LAB | | | [phone] | + +---------+ + + MRI Cervical [...] | in the cervical cord at the A3xcuwb.2. Multilevel degenerative disc and spondylitic | | [...] + | MISCELLANEOUS LAB | | | [phone] | + +---------+ + + | MISCELANIOUS LAB | | | [phone] | + +---------+ + + documented in [...]
--- OUTSIDE RECORDS SUMMARY | ~2019-04-17 | XMS | Encounter Summary ---
Demographics + + + | Address | [address] | | | [place] [address] | + + + | Home Phone [...] [facility] | | [...] Team Providers + +------+ + | Care Applications System Analyst Name | Role | Phone | + +------+ + | Dominic Carlin MD | PCP | | + +------+ + Encounter Details +--------+ + + + + | Date | Type | Department | Care Team | Description | +--------+ + + + + | 07/11/ | Preadmit | [facility] | Wes Melvin MD | Cervical cord | | 2015 | Visit | [facility] | [address] | myelomalacia (HCC); | | | | CLINIC [address] | [place] [address] | Cervical spondylosis | | | | [place] | [phone] | with myelopathy; | | | | [address] | | Essential | | | | [...] + | [facility] | [address] | [place], [place] | [phone] | | [facility] | | [address] | | | - LABORATORY | | | | + + + + + | [facility] | [address] | [place], [place] | | | [facility] | | [address] | | | - LABORATORY | | [...] | 0.77 | 0.60 - 1.30 | [facility] | | | | | mg/dL | [facility] | | | | | | [facility]ICAL | | | | | | CENTER - | | | | | | LABORATORY | | + + + + + + | eGFR if not | >60Comment: GLOMERULAR | >=60 | [facility] | | | | FILTRATION | mL/min/1.73m2 | [facility] | | | [facility] | RATE,ESTIMATED | | MEDICAL | | | | mL/min/1.77k0Vptn than | | CENTER - | | [...] | + + + + + | [facility] | [address] | [place], [place] | [phone] | | [facility] | | [address] | | | - LABORATORY | | | | + + + + + | [facility] | [address] | [place], [place] | | | [facility] | | [address] | | | - LABORATORY | | [...]
--- OUTSIDE RECORDS SUMMARY | ~2019-04-17 | XMS | Encounter Summary ---
Demographics + + + | Address | [address] | | | [place] [address] | + + + | Home Phone | | + + + | Preferred Language | Unknown | + + + | Marital Status | Single | + + + | Restorationist Affiliation | Unknown | + + + | Race | or | + + + | Ethnic Group | Not or | + + + Author + + + | Author | [facility] | + + + | Organization | [...] Team Providers + +------+ + | Care Drive Man Name | Role | Phone | + [...] | | | | | | | [address] | | | | | | | Phone: | | | | | | | [phone] | | | | | | | Fax: | | | | | | | [phone] | +--------+--------+ + + + + Encounter [...] Angelica Mcconnell, | | | | | [facility] | [place] [address] | | | | | and Healing, | [phone] | | | | | Building | | | | | | Floor [place], [place] | | | | | | [address] | | | | | | [phone] | | | +--------+ + + + [...] data and waveforms have been scanned into [email or web address]. The summary is as follows: Motor Nerve [...] | + + +--------+ + + | ID MUSCLE TEST, ONE | Procedures | Routin | Carpal Tunnel | Ordered: 04/17/2008 | | LIMB | | e | Syndrome Ulnar | | | | | | Neuritis Cervical | | | | | | Radiculitis | | + + +--------+ + + | ID MOTOR NERVE | Procedures | Routin | Carpal Tunnel | Ordered: 04/17/2008 | | CONDUCT TEST, W | | e | Syndrome Ulnar | | | F-WAVE | | | Neuritis Cervical | | | | | | Radiculitis | | + + +--------+ + + | ID NERVE | Procedures | Routin | Carpal [...]
--- OUTSIDE RECORDS SUMMARY | ~2019-04-17 | XMS | Encounter Summary ---
Demographics + + + | Address | [address] | | | [place] [address] | + + + | Home Phone | | + + + | Preferred Language | Unknown | + + + | Marital Status | Single | + + + | Baptist Affiliation | Unknown | + + + | Race | or | + + + | Ethnic Group | Not or | + + + Author + + + | Author | [facility] [employer] [facility] | + + + | Organization | [facility] | + + + | Address | Unknown | + + + | Phone | Unavailable | + + + Support + + +---------+ + | Name | Relationship | Address | Phone | + + +---------+ + | Gautam Ray | ECON | Unknown | | + + +---------+ + Care Team Providers + +------+ + | Care Color Room Attendant Name | Role | Phone | + [...] | | | | and tendons | [facility] | [facility] | | | | | in shoulder | Rd | Rd [place], | | | | | region, | [place], [place] | [place] | | | | | unspecified | [address] | [address] | | | | | Procedures | Phone: | Phone: | | | | | CONSULT TO | [phone] | [phone] | | | | | ORTHOPEDICS | Fax: | Fax: | | | | | AND | [phone] | [phone] | | | | | REHABILITATI | [...] | | | | | | [place], | | | | | | | [place] | | | | | | | [address] | | | | | | | Phone: | | | | | | | [phone] | | | | | | | Fax: | | | | | | | [phone] | +--------+--------+ + + + + Encounter Details +--------+---------+ + + + | Date | Type | Department | Care Team | Description | +--------+---------+ + + + | 04/19/ | Office | Orthopaedics at | Jaswant Angeles MD | Unspecified | | 2007 | Visit | [facility] [address] | [address] | Disorders of Bursae | | | | Ave Mailcode: CH12A | [address] | and Tendons in | | | | [facility] | [place], [place] | Shoulder Region | | | | and Healing, | [address] | (Primary Dx) | | | | | [phone] | | | | | Floor [place], [place] | | | | | | [address] | | | | | | [phone] | | | +--------+---------+ + + + [...] + documented as of this encounter Progress Jaswant Crow - 05/06/2008 2:31 PM [place] patient returns [...]
--- OUTSIDE RECORDS SUMMARY | ~2019-04-17 | XMS | Encounter Summary ---
Demographics + + + | Address | [address] | | | [place] [address] | + + + | Home Phone [...] | Organization | [facility] [...] Team Providers + +------+ + | Care Surgical Specialist Name | Role | Phone | [...] | | | | | Degenerative | [place], [place] | | | | | | disc | [address] | | | | | | disease, | Phone: | | | | | | cervical | [phone] | | | | | | Cervical | Fax: | | | | | | cord | [phone] | | | | | | myelomalacia | | | | | | | ([facility]) S/P | | | | [...] | (Primary Dx); | | | | [place], [place] | [place] [address] | Degenerative disc | | | | [address] | [phone] | disease, cervical; | | | | [phone] | | Cervical cord | | | [...] t from the original. NICKOLAS Ponce [address] [facility], [address] [place] [address] FAX: NEUROSURGERY SURGICAL FOLLOW-UP CHIEF COMPLAINT: Chief [...] Overall, the patient is doing well. 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 COMPARISON: Multiple priors. FINDINGS: Visualized | [facility] | | skull base and facial structures [...] | + + + + + | [facility] | [address] | [place], [place] | [phone] | | [facility] | | [address] | | | - IMAGING | | [...]
--- OUTSIDE RECORDS SUMMARY | ~2019-04-17 | XMS | Encounter Summary ---
Demographics + + + | Address | [address] | | | [place] [address] | + + + | Home Phone | | + + + | Preferred Language | Unknown | + + + | Marital Status | Single | + + + | Hindu Affiliation | Unknown | + + + | Race | or | + + + | Ethnic Group | Not or | + + + Author + + + | Author | [facility] [employer] [facility] | + + + | Organization | [facility] | + + + | Address | Unknown | + + + | Phone | Unavailable | + + + Support + + +---------+ + | Name | Relationship | Address | Phone | + + +---------+ + | Gautam Ray | ECON | Unknown | | + + +---------+ + Care Team Providers + +------+ + | Care Overedge Machine Operator Name | Role | Phone [...] | | | | | | [place], | | | | | | | [place] | | | | | | | [address] | | | | | | | Phone: | | | | | | | [phone] | | | | | | | Fax: | | | | | | | [phone] | +--------+--------+ + + + + Encounter Details +--------+---------+ + + + | Date | Type | Department | Care Team | Description | +--------+---------+ + + + | 03/05/ | Office | Orthopaedics at | Jaswant Angeles MD | Shoulder Pain; | | 2007 | Visit | [facility] [address] | [address] | Injury of Axillary | | | | Ave Mailcode: CH12A | [address] | Nerve; Unspecified | | | | [facility] | [place], [place] | Disorders of Bursae | | | | and Healing, | [address] | and Tendons in | | | | [facility] | [phone] | Shoulder Region | | | | Floor [place], [place] | | | | | | [address] | | | | | | [phone] | | | +--------+---------+ + + + [...] | | + +---------+ + + | [facility] DEPARTMENT OF | | | | [...]
--- OUTSIDE RECORDS SUMMARY | ~2019-04-17 | XMS | Clinical Summary ---
Demographics + + + | Address | [address] | | | [place] [address] | + + + | Home Phone | | + + + | Preferred Language | Unknown | + + + | Marital Status | Single | + + + | Mormon Affiliation | 1041 | + + + | Race | Unknown | + + + | Ethnic Group | Unknown | + + + Author + + + | Author | [facility] (Historical as of | | | 12-31-18) | + + + | Organization | [facility] (Historical as of | | | 12-31-18) [...] Team Providers + +------+ + | Care Yard Coordinator Name | Role | Phone | [...] | + +--------+ +------+ + + | /[facility] | YELLOW | [id number] | | | | | PLANS | [place] | | | | | + +--------+ +------+ + + | MEDICARE | MEDICA | [id number] | | | [address] | | | RE | | | | [place] [address] | | | IP-OP | | | | | + +--------+ +------+ + + | VETERANS | VETERA | [id number] | | [phone] [employer] [employer] [id number] | | ADMINISTRATION | [place] | | | [phone] | | | [address]MINI | | | | [address] [place] | | | [place] | | | | [address] | | | ON | | | [...] | Self | [birth year] | Home: | [address] | | | al/Fam | | 1945 | +- | [place], [place] | | | carolyn | | | [address] | [address] | + +--------+ +--------+ + + | ISA OSMAN | Vetera | Self | [birth year] | Home: | [address] | | | ns | | 1945 | +- | [place] | | | Admini | | | [address] | [address] | | | strati | | | | | | | on | | | | | + +--------+ +--------+ + +
--- OUTSIDE RECORDS SUMMARY | ~2019-04-17 | XMS | Encounter Summary ---
Demographics + + + | Address | [address] | | | [place] [address] | + + + | Home Phone [...] + | Organization | [facility] | | | and [place] [...] Team Providers + +------+ + | Care Appliances Sample Maker Name | Role | Phone | [...] [place] | | | | | | [address] | | | | | | [phone] | | | +--------+ + + + [...]
--- OUTSIDE RECORDS SUMMARY | ~2019-04-17 | XMS | Encounter Summary ---
Demographics + + + | Address | [address] | | | [place] [address] | + + + | Home Phone [...] | Organization | [facility] | | | and [...] Team Providers + +------+ + | Care Maxillofacial Surgeon Name | Role | Phone | + [...] | | [address] | [place] [address] | | | | | [place] | [phone] | | | | | [address] | | | | | | [phone] | | | +--------+ + + + [...]
--- OUTSIDE RECORDS SUMMARY | ~2019-04-17 | XMS | Encounter Summary ---
Demographics + + + | Address | [address] | | | [place] [address] | + + + | Home Phone [...] + | Organization | [facility] | | | [...] Providers + +------+ + | Care Machine Room Engineer Name | Role | Phone | [...] [place] | | | | | | [address] | | | | | | [phone] | | | +--------+ + + + [...]
--- OUTSIDE RECORDS SUMMARY | ~2019-04-17 | XMS | Encounter Summary ---
Demographics + + + | Address | [address] | | | [place] [address] | + + + | Home Phone | | + + + | Preferred Language | Unknown | + + + | Marital Status | Single | + + + | Confucianist Affiliation | 1041 | + + + | Race | Unknown | + + + | Ethnic Group | Unknown | + + + Author + + + | Author | [facility] | | | and [place] | + + + | Organization | [facility] | | | and [...] Team Providers + +------+ + | Care Full Roll Inspector Name | Role | Phone | [address] | | | | | | [place] | | | | | | [address] | | | | | | [phone] | | | +--------+ + + + [...]
--- OUTSIDE RECORDS SUMMARY | ~2019-04-17 | XMS | Encounter Summary ---
Demographics + + + | Address | [address] | | | [place] [address] | + + + | Home Phone | | + + + | Preferred Language | Unknown | + + + | Marital Status | Single | + + + | Yarsani Affiliation | Unknown | + + + | Race | or | + + + | Ethnic Group | Not or | + + + Author + + + | Author | [facility] | + + + | Organization | [facility] | + + + | Address | Unknown | + + + | Phone | Unavailable | + + + Support + + +---------+ + | Name | Relationship | Address | Phone | + + +---------+ + | Gautam Ray | ECON | Unknown | | + + +---------+ + Care Team Providers + +------+ + | Care Cotton Seed Culler Name | Role | Phone | + [...] | 2008 | Visit | Center at [facility] [address] | [address] | [place] | | | | [address] | [address] [place], [place] | (Primary Dx) | | | | Mailcode: CH8N | [address] | | | | | [facility] | | | | | | and Healing, | | | | | | Building | | | | | | Floor [place], [place] | | | | | | [address] | | | | | | [phone] | | | +--------+---------+ + + + [...]
--- OUTSIDE RECORDS SUMMARY | ~2019-04-17 | XMS | Encounter Summary ---
Demographics + + + | Address | [address] | | | [place] [address] | + + + | Home Phone [...] | Organization | [facility] | | | and [...] Team Providers + +------+ + | Care R&D Lab Technician Name | Role | Phone | [address] | | | | | | [place] | | | | | | [id number] | | | | | | [phone] | | | +--------+ + + + [...]
--- OUTSIDE RECORDS SUMMARY | ~2019-04-17 | XMS | Encounter Summary ---
Demographics + + + | Address | [address] | | | [place] [address] | + + + | Home Phone | | + + + | Preferred Language | Unknown | + + + | Marital Status | Single | + + + | Gnosticism Affiliation | 1041 | + + + | Race | Unknown | + + + | Ethnic Group | Unknown | + + + Author + + + | Author | [facility] | | | and [place] | + + + | Organization | [facility] | [...] Team Providers + +------+ + | Care Consulting Intern Name | Role | Phone | [...] | | | [address] | [place] [address] | | | | | [address] | [phone] | | | | | [phone] | | | +--------+ + + + [...] [address] | [place] | [phone] | | [facility] | | [address] | | | - IMAGING | | | | + + + + + documented in this encounter Visit Diagnoses + + | Diagnosis | + + | S/P cervical spinal fusion - Primary Arthrodesis status | + + documented in this encounter"
--- OUTSIDE RECORDS SUMMARY | ~2019-04-17 | XMS | Encounter Summary ---
Demographics + + + | Address | [address] | | | [place] [address] | + + + | Home Phone [...] | Organization | [facility] | [...] Team Providers + +------+ + | Care Office Machines Teacher Name | Role | Phone | [...] | | | | [address] | [facility] | | | | | [place], [place] | [address] [place], | | | | | [address] | [place] [address] | | | | | [phone] | [phone] | | | | | | | [...] Performed At | + + + | [id number] | | | [facility] [address] | | | , RADIOLOGY | | | Patient Name: ISA OSMAN Date of : 1945 | | | Medical Record: [id number] Account: [id number] O/P// | | | Exam Date/Time: 08/31/2009 04:15 P Ordering | | | Provider: NELL MUSE Detail: 1430 / / [facility] Exam | | | Description: MRI LUMBAR [...] exiting right L1 nerve root. There is lues-ve-nzecgsfb left neural | | | foraminal narrowing. [...] lateral | | | recesses. There is crahsekm-bb-fkbdum right and severe left neural | | [...] | bilateral L4 nerve roots. There is njoudvec-jj-kxymjm left and severe | | | right [...] AP dimension. There is severe left and ebuqzdqo-gs-ecvass right | | | neural foraminal narrowing that is likely impinging on the exiting | | | bilateral L4 nerve roots. L5-S1: There is disk desiccation with | | | nfapzuxs-yq-zsgnpv disk space narrowing and associated degenerative | [...] greatest on the left side. There is cchsklvg-hg-tfozpt right | | | with severe left [...] and L5 nerve roots. 3. Please see vsrdi-jy-pjghv | | | discussion above. Read by AUDRA WILKINS DO | | | 09/02/2009 11:17 A Electronically Signed by AUDRA WILKINS DO | | | 09/02/2009 09:09 P A | | | 04:03 P BALBINA/brisa/[id number]/ cc: MD AUDRA PAIGE | | | DO [place]UD[place] | | + + + + + | Procedure Note | + + | Eldon, Rad Conversion - 01/08/2019 4:40 PM PDT | | [id number] | | [facility] | | [facility] [address] | | , | | RADIOLOGY | | | | Patient Name: ISA OSMAN | | Date of : 1945 | | Medical Record: [id number] | | Account: [id number] | | O/P// | | | | [...] exiting right L1 nerve root. There is ixcf-pt-mjvejlqz left neural | | foraminal narrowing. | [...] narrowing of both lateral recesses. There is gfmkaecw-kv-owfezd right | | and severe left neural [...] L4 nerve roots. There is | | wdqrwuwi-fy-wcmqyr left and severe right neural foraminal narrowing [...] AP dimension. There is severe left and qvvvwjwh-vj-ulodbd right | | neural foraminal narrowing that is likely impinging on the exiting | | bilateral L4 nerve roots. | | | | L5-S1: There is disk desiccation with oujkphtk-bq-ndlate disk space | | narrowing and associated [...] greatest on the left side. There is gdcjzfvu-jw-arzogn | | right with severe left neural [...] nerve roots. | | 3. Please see yurqa-me-focvp discussion above. | | | | | | | | | | | | | | Read by | | AUDRA WILKINS DO 09/02/2009 11:17 A | | Electronically Signed by | | AUDRA WILKINS DO 09/02/2009 09:09 P | | | | A | | P | | BALBINA/brisa/[id number]/ | | cc: NELL MUSE MD | | AUDRA WILKINS DO | + + documented in this encounter Visit Diagnoses + + | Diagnosis | + + | Backache, unspecified | + + documented in this encounter"
--- OUTSIDE RECORDS SUMMARY | ~2019-04-17 | XMS | Encounter Summary ---
Demographics + + + | Address | [address] | | | [place] [address] | + + + | Home Phone [...] | Organization | [facility] | | | and [...] Team Providers + +------+ + | Care Aeroplane Pilot Name | Role | Phone | + +------+ + | Dominic Carlin MD | PCP | | + +------+ + Encounter Details +--------+ + + + + | Date | Type | Department | Care Team | Description | +--------+ + + + + | 07/11/ | [facility] | [facility] | Wes Melvin MD | Cervical cord | | 2015 | Encounter | MED CTR XRAY [address] | [address] | myelomalacia (HCC); | | | | [place] | [place] [address] | Cervical spondylosis | | | | [place] [address] | [phone] | with myelopathy; | | | | [phone] | | Essential | | | | [...] ST. | [address] | [place], [place] | [phone] | | [facility] | | [address] | | | - IMAGING | | [...]
--- OUTSIDE RECORDS SUMMARY | ~2019-04-17 | XMS | Encounter Summary ---
Demographics + + + | Address | [address] | | | [place] [address] | + + + | Home Phone [...] | Organization | [facility] | | | and [...] Team Providers + +------+ + | Care Enchilada Maker Name | Role | Phone | [...] | [address] | [place] [address] | pain | | | | [place] | [phone] | | | | | [address] | | | | | | [phone] | | | +--------+ + + + [...] COMPARISON: CERVICAL MRI MAY 16, 2013 FROM [facility] | LAB | | [facility] FINDINGS: An AP view and [...] PAINCOMPARISON: CERVICAL MRI MAY 16, 2013 FROM [facility] | | MEDICAL CENTERFINDINGS: An AP [...] + | MISCELLANEOUS LAB | | | [phone] | + +---------+ + + | MISCELANIOUS LAB | | | [phone] | + +---------+ + + documented in this encounter Visit Diagnoses + + | Diagnosis | + + | Spinal stenosis - Primary Spinal stenosis, unspecified region other than cervical | + + | Neck pain Cervicalgia | + + documented in this encounter"
--- OUTSIDE RECORDS SUMMARY | ~2019-04-17 | XMS | Encounter Summary ---
Demographics + + + | Address | [address] | | | [place] [address] | + + + | Home Phone [...] Organization | [facility] | | [...] Team Providers + +------+ + | Care Database Marketing Manager Name | Role | Phone | [...] MD [address] | [address] | | | | | Procedures | [address] | [place], | | | | | MRI Lumbar | [place], | [place] | | | | | Spine wo | [place] [address] | [address] | | | | | Contrast | Phone: | Phone: | | | | | | [phone] | [phone] | | | | | | Fax: | Fax: | | | | | | [phone] | [phone] | +--------+--------+ + + + + Reason [...] MD [address] | [address] | | | | | Procedures | [address] | [place], | | | | | MRI Lumbar | [place], | [place] | | | | | Spine wo | [place] [address] | [address] | | | | | Contrast | Phone: | Phone: | | | | | | [phone] | [phone] | | | | | | Fax: | Fax: | | | | | | [phone] | [phone] | +--------+--------+ + + + + Encounter Details +--------+ + + + + | Date | Type | Department | Care Team | Description | +--------+ + + + + | 01/30/ | Hospital | [facility] | Wes Melvin MD | Back pain | | 2013 | Encounter | MED CTR MRI [address] | [address] | | | | | [place], | [place] [address] | | | | | [place] [address] | [phone] | | | | | [phone] | | | +--------+ + + + [...] + | MISCELLANEOUS LAB | | | [phone] | + +---------+ + + | MISCELANIOUS LAB | | | [phone] | + +---------+ + + documented in this encounter Visit Diagnoses + + | Diagnosis | + + | Back pain Backache, unspecified | + + documented in this encounter"
--- OUTSIDE RECORDS SUMMARY | ~2019-04-17 | XMS | Encounter Summary ---
Demographics + + + | Address | [address] | | | [place] [address] | + + + | Home Phone [...] | Organization | [facility] | | | and [place] [...] Team Providers + +------+ + | Care Knitting Demonstrator Name | Role | Phone | + +------+ + | Dominic Carlin MD | PCP | | + +------+ + Encounter Details +--------+ + + + + | Date | Type | Department | Care Team | Description | +--------+ + + + + | 08/23/ | Hospital | [facility] | Haroldo King | S/P cervical spinal | | 2014 | Encounter | MED CTR XRAY [address] | [address] | fusion | | | | [place] | [address] | | | | | [place] [address] | [place] [address] | | | | | [phone] | [phone] | | | | | | | [...] + | [facility] | [address] | [place] | [phone] | | [facility] | | [address] | | | - IMAGING | | | | + + + + + documented in this encounter Visit Diagnoses + + | Diagnosis | + + | S/P cervical spinal fusion Arthrodesis status | + + documented in this encounter"
--- OUTSIDE RECORDS SUMMARY | ~2019-04-17 | XMS | Encounter Summary ---
Demographics + + + | Address | [address] | | | [place] [address] | + + + | Home Phone [...] + | Organization | [facility] | | | and [place] [...] Team Providers + +------+ + | Care Evaporator Operator Name | Role | Phone | [...] Closed | | Radiology | Diagnoses | eWs Melvin | [facility] | | | | | Cervical | MD [address] | [address] | | | | | spondylosis | [address] | [place], | | | | | with | [place], | [place] | | | | | myelopathy | [place] [address] | [address] | | | | | Cervical | Phone: | Phone: | | | | | cord | [phone] | [phone] | | | | | myelomalacia | Fax: | Fax: | | | | | (HCC) | [phone] | [phone] | | | | | Degenerative | [...] | | | | | with | [facility] | [place] | | | | | myelopathy | [place] [address] | [address] | | | | | Cervical | Phone: | Phone: | | | | | cord | [phone] | [phone] | | | | | myelomalacia | Fax: | Fax: | | | | | ([facility]) | [phone] | [phone] | | | | | Degenerative | [...] + + | 01/30/ | Hospital | [facility] | Wes Melvin MD | Cervical spondylosis | | 2013 | Encounter | MED CTR MRI [address] | [address] | with myelopathy; | | | | [place], | [place] [address] | Cervical cord | | | | [place] [address] | [phone] | myelomalacia ([facility]); | | | | [phone] | | Degenerative disc | | | [...] | in the cervical cord at the H7wdvgz.2. Multilevel degenerative disc and spondylitic | | [...] + | MISCELLANEOUS LAB | | | [phone] | + +---------+ + + | MISCELANIOUS LAB | | | [phone] | + +---------+ + + documented in this encounter Visit Diagnoses + + | Diagnosis | + + | Cervical spondylosis with myelopathy | + + | Cervical cord myelomalacia (HCC) Other myelopathy | + + | Degenerative disc disease, cervical Degeneration of cervical intervertebral disc | + + documented in this encounter"
--- OUTSIDE RECORDS SUMMARY | ~2019-04-17 | XMS | Clinical Summary ---
Demographics + + + | Address | [address] | | | [place] [address] | + + + | Home Phone [...] | Organization | [facility] | | | and [...] Team Providers + +------+ + | Care Hot Box Operator Name | Role | Phone | [...] | OSTEOTECH - | | 03/15/ | [id number] | | - [id number]: Qty: | | Spine | OSTT | | 2016 | | | 1 on 07/26/2014 by Olegario, | | Agustina | | | | /[id number] | | Wes Rasmussen MD at [facility] | | al | | | | 1-069 | | [facility] | | | | | | / | + +------+--------+ +--------+--------+--------+ | Allograft Lordotic [id number] - | | N/A: | SOFAMOR | | 03/27/ | [id number] | | [id number]: Qty: 1 on | | Spine | DANEK - DIV | | 2016 | | | 07/26/2014 by Wes Melvin | Jose Berrios | [employer] | | | /[id number] | | at [facility] | | al | - SFDK | | | 137 | | [facility] | | | | | | /[id number] | | | | | | | | 3633 | + +------+--------+ +--------+--------+--------+ | Allogft Lordtc Bone Sr | | N/A: | SPINALGRAFT | | 03/19/ | [id number] | | [id number] - [id number]: | | Spine | | | 2016 | | | Qty: 1 on 07/26/2014 by Olegario, | | Cervic | TECHNOLOGIE | | | /[id number] | | Wes Rasmussen MD at [facility] | | al | S - SPNL | | | 822 | | [facility] | | | | | | /[address] | | [place] | | | | | | 3280 | + +------+--------+ +--------+--------+--------+ | Allograft Lordotic [id number] - | | N/A: | SOFAMOR | | 03/27/ | [id number] | | [id number]: Qty: 1 on | | Spine | DANEK - DIV | | 2016 | | | 07/26/2014 by Wes Melvin, | | Cervic | [employer] | | | /[id number] | | at [facility] | | al | - SFDK | | | 141 | | [facility] | | | | | | /[address] | | | | | | | | 3633 | + +------+--------+ +--------+--------+--------+ | Allogft Lordtc Bone Sr | | N/A: | SPINALGRAFT | | 03/23/ | [id number] | | [id number] - [id number]: | | Spine | | | 2017 | | | Qty: 1 on 07/26/2014 by Olegario, | | Agustina | ROLDAN | | | /[id number] | | Wes Rasmussen MD at [facility] | | al | S - SPNL | | | 967 | | [facility] | | | | | | /[id number] | | CENTER | | | | | | 3899 | + +------+--------+ +--------+--------+--------+ | Screw Slf-Drl F/A 4.5x17mm - | | N/A: | SO[facility]OR | | | [id number] | | [id number]: Qty: 2 on | | Spine | DANEK - DIV | | | | | 07/26/2014 by Wes Melvin, | | Agustina | [employer] | | | | | MD at [facility] | | al | - SFDK | | | | | [facility] | | | | | | | + +------+--------+ +--------+--------+--------+ | Screw Slf-Drl V/A 4.0x16mm - | | N/A: | SOFAMOR | | | [id number] | | [id number]: Qty: 6 on | | Spine | DANEK - DIV | | | | | 07/26/2014 by Wes Melvin, | | Agustina | [employer] | | | | | MD at [facility] | | al | - SFDK | | | | | [facility] | | | | | | | + +------+--------+ +--------+--------+--------+ | Screw Slf-Drl V/A 4.0x17mm - | | N/A: | SO[facility]OR | | | [id number] | | [id number]: Qty: 2 on | | Spine | DANEK - DIV | | | 7 / | | 07/26/2014 by Wes Melvin, | Jose Berrios | [employer] | | | | | at [facility] | | al | - SFDK | | | | | [facility] | | | | | | | + +------+--------+ +--------+--------+--------+ | Plate Ant Dorrington Cerv 80mm | | N/A: | [employer] - | | | [id number] | | - [id number]: Qty: 1 | | Spine | MEDT | | | 0 / / | | on 07/26/2014 by Wes Melvin | Jose Berrios | | | | | | MD Valery at [facility] | | al | | | | | | [facility] | | | | | | [...] +---------+--------+ | [employer] | VETERA | [id number] | | | | Indemn | | | NS | | 017-Pr | | | ity | | | ADMIN | | esent | | | | | | [place] | | | | | | | | [place] | | | | | | + +--------+ +--------+ +---------+--------+ | MEDICARE | MEDICA | [id number] | 11/15/19 | [phone] | | Medica | | | RE | | 16-Pre | 5 | | re | | | PART A | | sent | | | | | | AND B | | | | | | + +--------+ +--------+ +---------+--------+ | [facility] | IHS | [id number] | 07/16/19 | | | Indemn | [...] Person | Self | [birth year] | [address] | Jose Coombs | josemanuel/Cristi | | 1945 | [phone] | [place] | | | carolyn | | | 4 (Home) | [address] | + +--------+ +--------+ + + Advance Directives + + + + + | Type | Date Recorded | Patient | Explanation | | | | Quality Control Industrial Engineer | | + + + + + | Power of | | | | | Compensation And Benefits Analyst | | | | + + + [...]
--- OUTSIDE RECORDS SUMMARY | ~2019-04-17 | XMS | Encounter Summary ---
Demographics + + + | Address | [address] | | | [place] [address] | + + + | Home Phone [...] + | Organization | [facility] | | | and [place] | [...] Providers + +------+ + | Care Technical Stenographer Name | Role | Phone | + [...] | | [address] | [place] [address] [address] | | | | | [address] | [address] | | | | | [place], [place] | [place] [address] | | | | | [address] | [phone] | | | | | [phone] | | | +--------+ + + + [...] | | | Grade 1 diastolic abnormality, [place] visually estimates LVEF 65-70%. | | | [...] Grade 1 | | | diastolic abnormality, [place] visually estimates LVEF 65-70%. Mild | | [...] pressures of 0-5mmHg. MEASUREMENTS | | | Learn To Swim Instructor: DEMARCO Authenticated by: Allen Grant | | | DO Report Date/Time: -- 80_27-30-1674_15:21:22 | | + + + + + | Procedure Note | + + | Eldon, Rad Conversion - 01/05/2019 8:26 PM PDT Patient Name: Yonny Bell of | | : 1945 Performing Physician: Allen Grant | | DO INDICATIONS c | | va CONCLUSIONS 1. See Dictation. 2. Mild concentric LVH, systolic function | | NML, Grade 1 diastolic abnormality, [place] visually estimates LVEF 65-70%. Mild LAE. | [...] venous pressures of 0-5mmHg. | | MEASUREMENTS Learn To Swim Instructor: HERLINDAuthenticated by: Allen Morris | | Date/Time: -- 03_36-52-5422_41:21:22 IMPRESSION: 1. See Dictation. 2. Mild concentric | | LVH, systolic function NML, Grade 1 diastolic abnormality, [place] visually estimates | | LVEF 65-70%. Mild [...] | |MEASUREMENTS | | | | | |Learn To Swim Instructor: | |Authenticated by: Allen Grant DO | |Report Date/Time: -- 72_28-13-4328_47:21:22 | | | |IMPRESSION: | |1. See Dictation. 2. Mild concentric LVH, systolic function NML, Grade 1 diastolic abnorma lity, [place] visually estimates LVEF 65-70%. Mild LAE. RA [...]
--- OUTSIDE RECORDS SUMMARY | ~2019-04-17 | XMS | Encounter Summary ---
Demographics + + + | Address | [address] | | | [place] [address] | + + + | Home Phone [...] + + | Organization | [facility] | | | and [...] Providers + +------+ + | Care Dye Tub Tender Name | Role | Phone | [...] + + | 07/26/ | Hospital | [facility] | Wes Melvin MD | Other myelopathy | | 2014 | Encounter | MED CTR XRAY [address] | ([facility]) | | | | [place] | [place] [address] | | | | | [place] [address] | [phone] | | | | | [phone] | | | +--------+ + + + [...] Chart Review. | [facility] | | | [facility] | | | [facility] | | | - IMAGING | + + + + + + + + | Performing | Address | City/State/Zipcode | Phone Number | | Organization | | | | + + + + + | [facility] [address] | [address] | [place] | [phone] | | [facility] | | [address] | | | - IMAGING | | | | + + + + + documented in this encounter Visit Diagnoses + + | Diagnosis | + + | Other myelopathy | + + documented in this encounter"
--- OUTSIDE RECORDS SUMMARY | ~2019-04-17 | XMS | Encounter Summary ---
Demographics + + + | Address | [address] | | | [place] [address] | + + + | Home Phone | | + + + | Preferred Language | Unknown | + + + | Marital Status | Single | + + + | Orthodox Affiliation | 1041 | + + + | Race | Unknown | + + + | Ethnic Group | Unknown | + + + Author + + + | Author | [facility] | | | and [place] | + + + | Organization | [facility] | | [...] Team Providers + +------+ + | Care Publication Manager Name | Role | Phone | [...] | | | | | | | MS | | | | | | | [...] + + | 07/26/ | Hospital | [facility] | Wes Melvin MD | Other myelopathy | | 2014 | Encounter | MED CTR XRAY [address] | ([facility]) | | | | [place] | [place] [address] | | | | | [place] [address] | [phone] | | | | | [phone] | | | +--------+ + + + [...] Chart Review. | [facility] | | | [facility] | | | [place] | | | - IMAGING | + + + + + + + + | Performing | Address | City/State/Zipcode | Phone Number | | Organization | | | | + + + + + | [facility] | [address] | [place] | [phone] | | [facility] | | [address] | | | - IMAGING | | | | + + + + + documented in this encounter Visit Diagnoses + + | Diagnosis | + + | Other myelopathy | + + documented in this encounter"
--- OUTSIDE RECORDS SUMMARY | ~2019-04-17 | XMS | Encounter Summary ---
Demographics + + + | Address | [address] | | | [place] [address] | + + + | Home Phone [...] + | Organization | [facility] | [...] Team Providers + +------+ + | Care Procurement Specialist Name | Role | Phone | [...] | | | | | [address] [facility] [[email or web address] [address] | [place] [address] | | | | | [place] | [phone] | | | | | [address] | | | | | | [phone] | | | +--------+ + + + [...]
--- OUTSIDE RECORDS SUMMARY | ~2019-04-17 | XMS | Encounter Summary ---
Demographics + + + | Address | [address] | | | [place] [address] | + + + | Home Phone | | + + + | Preferred Language | Unknown | + + + | Marital Status | Single | + + + | Temple Affiliation | 1041 | + + + | Race | Unknown | + + + | Ethnic Group | Unknown | + + + Author + + + | Author | [facility] | | | and [place] | + + + | Organization | [facility] | | | and [...] Team Providers + +------+ + | Care Land Conservation Specialist Name | Role | Phone | + +------+ + | Dominic Carlin MD | PCP | | + +------+ + Encounter Details +--------+ + + + + | Date | Type | Department | Care Team | Description | +--------+ + + + + | 01/19/ | [facility] | [facility] | Wes Melvin MD | Spinal stenosis; | | 2013 | Encounter | MED CTR XRAY [address] | [address] | Neck pain | | | | [place] | [place] [address] | | | | | [place] [address] | [phone] | | | | | [phone] | | | +--------+ + + + [...] COMPARISON: CERVICAL MRI MAY 16, 2013 FROM [facility] | LAB | | [facility] FINDINGS: An AP view and lateral views [...] PAINCOMPARISON: CERVICAL MRI MAY 16, 2013 FROM [facility] | | MEDICAL CENTERFINDINGS: An [...] + | MISCELLANEOUS LAB | | | [phone] | + +---------+ + + | MISCELANIOUS LAB | | | [phone] | + +---------+ + + documented in this encounter Visit Diagnoses + + | Diagnosis | + + | Spinal stenosis Spinal stenosis, unspecified region other than cervical | + + | Neck pain Cervicalgia | + + documented in this encounter"
--- OUTSIDE RECORDS SUMMARY | ~2019-04-17 | XMS | Encounter Summary ---
Demographics + + + | Address | [address] | | | [place] [address] | + + + | Home Phone [...] | [facility] | | | and [place] [...] Team Providers + +------+ + | Care Intercell Connector Placer Name | Role | Phone | + [...] | | [address] | [place] [address] | | | | | [place] | [phone] | | | | | [address] | | | | | | [phone] | | | +--------+ + + + [...]
--- OUTSIDE RECORDS SUMMARY | ~2019-04-17 | XMS | Encounter Summary ---
Demographics + + + | Address | [address] | | | [place] [address] | + + + | Home Phone | | + + + | Preferred Language | Unknown | + + + | Marital Status | Single | + + + | Adventist Affiliation | 1041 | + + + | Race | Unknown | + + + | Ethnic Group | Unknown | + + + Author + + + | Author | [facility] | | | and [place] | + + + | Organization | [facility] | | | and [place] [...] Team Providers + +------+ + | Care Private Inquiry Agent Name | Role | Phone | [...] | | [address] | [place] [address] | | | | | [place] | [phone] | | | | | [address] | | | | | | [phone] | | | +--------+ + + + [...]
--- OUTSIDE RECORDS SUMMARY | ~2019-04-17 | XMS | Encounter Summary ---
Demographics + + + | Address | [address] | | | [place] [address] | + + + | Home Phone | | + + + | Preferred Language | Unknown | + + + | Marital Status | Single | + + + | Yarsanism Affiliation | Unknown | + + + | Race | or | + + + | Ethnic Group | Not or | + + + Author + + + | Author | [facility] | + + + [...] Team Providers + +------+ + | Care Impregnating Tank Operator Name | Role | Phone | [...] 2007 | | & Rehabilitation | [address] | Electromyography | | | | [address] | Angelica Guerin [place], | (EMG of left | | | | [address], [place] | [place] [address] | shoulder) | | | | [address]ilion [address], | [phone] | | | | | [address] [facility] | | | | | | [place], [place] | | | | | | [address] | | | | | | [phone] | | | +--------+ + + + [...] and waveforms have b een scanned into RUN. The summary is as follows: Motor Nerve [...] | + + +--------+ + + | MI NERVE CONDUCTION | Procedures | Routin | Cervicalgia | Ordered: 02/20/2008 | | TEST,MOTOR | | e | Cervical Radiculitis | | | | | | Pain in Joint, | | | | | | Shoulder Region | | + + +--------+ + + | MI NERVE | Procedures | Routin | Cervicalgia | Ordered: 02/20/2008 | | CONDUCTION,EA | | e | Cervical Radiculitis | | | NERVE,MOTOR,SENSORY | | | Pain in Joint, | | | | | | Shoulder Region | | + + +--------+ + + | MI MUSCLE TEST, ONE | Procedures | Routin [...]
--- OUTSIDE RECORDS SUMMARY | ~2019-04-17 | XMS | Encounter Summary ---
Demographics + + + | Address | [address] | | | [place] [address] | + + + | Home Phone [...] + + + | Author | [facility] | | | and [place] | + + + | Organization | [facility] | | [...] Providers + +------+ + | Care Solid Center Winder Name | Role | Phone | [...] [place] | | | | | | [place] | | | | | | [address] | | | | | | [phone] | | | +--------+ + + + [...]
--- OUTSIDE RECORDS SUMMARY | ~2019-04-17 | XMS | Encounter Summary ---
Demographics + + + | Address | [address] | | | [place] [address] | + + + | Home Phone [...] | Organization | [facility] | | | and [...] Team Providers + +------+ + | Care Weekday Babysitter Name | Role | Phone | + [...] | | [address] | [place] [address] | | | | | [place] | [phone] | | | | | [address] | | | | | | [phone] | | | +--------+ + + + [...]
--- OUTSIDE RECORDS SUMMARY | ~2019-04-17 | XMS | Encounter Summary ---
Demographics + + + | Address | [address] | | | [place] [address] | + + + | Home Phone [...] + + | Author | [facility] | + + + | Organization | [facility] | + + + | Address | Unknown | + + + | Phone | Unavailable | + + + Support + + +---------+ + | Name | Relationship | Address | Phone | + + +---------+ + | Gautam Ray | ECON | Unknown | | + + +---------+ + Care Team Providers + +------+ + | Care Port Surveyor Name | Role | Phone | + [...] [address] | Angelica Guerin [place], | (EMG of left | | | | [address], [address] | [place] [address] | shoulder) | | | | [address], | [phone] | | | | | [address] [facility] | | | | | | [place], [place] | | | | | | [address] | | | | | | [phone] | | | +--------+ + + + [...] and waveforms have b een scanned into [employer]. The summary is as follows: Motor Nerve [...] | + + +--------+ + + | GA NERVE CONDUCTION | Procedures | Routin | Cervicalgia | Ordered: 02/20/2008 | | TEST,MOTOR | | e | Cervical Radiculitis | | | | | | Pain in Joint, | | | | | | Shoulder Region | | + + +--------+ + + | GA NERVE | Procedures | Routin | Cervicalgia | Ordered: 02/20/2008 | | CONDUCTION,EA | | e | Cervical Radiculitis | | | NERVE,MOTOR,SENSORY | | | Pain in Joint, | | | | | | Shoulder Region | | + + +--------+ + + | GA MUSCLE TEST, ONE | Procedures | Routin [...]
--- OUTSIDE RECORDS SUMMARY | ~2019-04-17 | XMS | Encounter Summary ---
Demographics + + + | Address | [address] | | | [place] [address] | + + + | Home Phone [...] + | Organization | [facility] | | | and [...] Team Providers + +------+ + | Care Drafter Patent Name | Role | Phone | + [...] | | [address] | [place] [address] | instructions) | | | | [place] | [phone] | | | | | [address] | | | | | | [phone] | | | +--------+ + + + [...]
--- OUTSIDE RECORDS SUMMARY | ~2019-04-17 | XMS | Encounter Summary ---
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 | [place] | [phone] | | [facility] | | [address] | | | - IMAGING | | [...] | Basophils | | K/uL | [facility] | | | | | | MEDICAL | | | | | | CENTER - | | | | | | LABORATORY | | + + + + + + + + | Specimen | + + | Blood | + + + + + + + | Performing | Address | City/State/[facility] | Phone Number | | Organization | | | | + + + + + | [facility] | [address] | [place] | [phone] | | [facility] | | [address] | | | - LABORATORY | | | | + + + + + | [facility] | [address] | [place] | | | [facility] | | [address] | | | - LABORATORY | | [...] mL/min/1.73m2 | [facility] | | | [place] | RATE,ESTIMATED | | MEDICAL | | | | mL/min/1.66k6Zkyu than | | CENTER - | | [...] + | [facility] | [address] | [place], [place] | [phone] | | [facility] | | [address] | | | - LABORATORY | | | | + + + + + | [facility] | [address] | [place], [place] | | | [facility] | | [address] | | | - LABORATORY | | [...]
--- OUTSIDE RECORDS SUMMARY | ~2019-04-17 | XMS | Encounter Summary ---
Demographics + + + | Address | [address] | | | [place] [address] | + + + | Home Phone [...] Organization | [facility] | [...] Team Providers + +------+ + | Care Vise Hand Name | Role | Phone | [...] + + | 07/26/ | Anesthesia | [facility] | Jaswant Calix MD | | | 2015 | Event | MED CTR OR INTRA OP | [address] | | | | | [address] | [place] | | | | | [place] | [address] | | | | | [address] | [phone] | | | | | [phone] | | | +--------+ + + + [...]
--- OUTSIDE RECORDS SUMMARY | ~2019-04-17 | XMS | Encounter Summary ---
Demographics + + + | Address | [address] | | | [place] [address] | + + + | Home Phone [...] Organization | [facility] | | [...] Team Providers + +------+ + | Care Dividing Machine Operator Helper Name | Role | Phone | + +------+ + | Dominic Carlin MD | PCP | | + +------+ + Encounter Details +--------+ + + + + | Date | Type | Department | Care Team | Description | +--------+ + + + + | 12/22/ | Orders Only | [facility] | Provider, | | | 2018 | | SYSTEM GENERIC OP | [address] | | | | | [address] | [place] | | | | | [address] [place], [place] | [place] [address] | | | | | [address] | | | | | | [phone] | | | +--------+ + + + [...]
--- OUTSIDE RECORDS SUMMARY | ~2019-04-17 | XMS | Encounter Summary ---
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
--- OUTSIDE RECORDS SUMMARY | ~2019-04-17 | XMS | Encounter Summary ---
Demographics + + + | Address | [address] | | | [place] [address] | + + + | Home Phone [...] | Organization | [facility] [...] Team Providers + +------+ + | Care Practice Office Associate Name | Role | Phone | [...] | | [address] | [place] [address] | | | | | [place] | [address] | | | | | [place], [place] | [place] [address] | | | | | [address] | [phone] | | | | | [phone] | | | +--------+ + + + [...] | | | Grade 1 diastolic abnormality, [place] visually estimates LVEF 65-70%. | | | [...] Grade 1 | | | diastolic abnormality, [place] visually estimates LVEF 65-70%. Mild | | [...] pressures of 0-5mmHg. MEASUREMENTS | | | Travel Information Center Supervisor: DEMARCO Authenticated by: Allen Grant | | | DO Report Date/Time: -- [id number] | | + + + + + | Procedure Note | + + | [place], Rad Conversion - 01/05/2019 8:26 PM PDT Patient Name: Yonny Bell of | | : 1945 Performing Physician: Allen Grant | | DO INDICATIONS c | | va CONCLUSIONS 1. See Dictation. 2. Mild concentric LVH, systolic function | | NML, Grade 1 diastolic abnormality, [place] visually estimates LVEF 65-70%. Mild LAE. | [...] venous pressures of 0-5mmHg. | | MEASUREMENTS Travel Information Center Supervisor: HERLINDAuthenticated by: Allen Morris | | Date/Time: -- [id number]:22 IMPRESSION: 1. See Dictation. 2. Mild concentric | | LVH, systolic function NML, Grade 1 diastolic abnormality, [place] visually estimates | | LVEF 65-70%. Mild [...] | |MEASUREMENTS | | | | | |Travel Information Center Supervisor: | |Authenticated by: Allen Grant DO | |Report Date/Time: -- [id number]:21:22 | | | |IMPRESSION: | |1. See Dictation. 2. Mild concentric LVH, systolic function NML, Grade 1 diastolic abnorma lity, [place] visually estimates LVEF 65-70%. Mild LAE. RA [...]
--- OUTSIDE RECORDS SUMMARY | ~2019-04-17 | XMS | Clinical Summary ---
Demographics + + + | Address | [address] | | | [place] [address] | + + + | Home Phone [...] Team Providers + +------+ + | Care Pre Owned Sales Manager Name | Role | Phone | + +------+ + PCP | Unavailable | + +------+ + Source Comments JOSSUE is fully live on both [facility] Ambulatory and [facility] InPatient.[facility] Allergies No Known Allergies Medications [...] | | | + +--------+ +--------+-------+---------+--------+ | [facility] | [place] | xxxxxxxxx | Effect | | | [...] Person | Self | [birth year] | [address] | | | al/Cristi | | 1945 | [phone] | [place] | | | carolyn | | | 4 (Home) | [address] | | | | | | [phone] | | | | | | | 0 (Work) | | + +--------+ +--------+ + + | Buck Bell | Agency | Self | [birth year] | | [address] | | | | | 1945 | [phone] | [place] | | | | | | 4 (Home) | [address] | | | | | | [phone] | | | | | | | 0 (Work) | | + +--------+ +--------+ + + Advance Directives + + + + + | Type | Date Recorded | Patient | Explanation | | | | Sales Activity Manager | | + + + + + | Advance | | | | | Directives and | | | | | Living Will | | | | + + + + + | Power of | | | | | Master Steam Yacht | | | | + + + + +
--- OUTSIDE RECORDS SUMMARY | ~2019-04-17 | XMS | Encounter Summary ---
Demographics + + + | Address | [address] | | | [place] [address] | + + + | Home Phone | | + + + | Preferred Language | Unknown | + + + | Marital Status | Single | + + + | Evangelical Affiliation | Unknown | + + + | Race | or | + + + | Ethnic Group | Not or | + + + Author + + + | Author | [facility] | + + + | [...] Team Providers + +------+ + | Care Textile Machine Operator Name | Role | Phone [...] | | | | and tendons | [facility] | | | | | in shoulder | Rd | Rd [place], | | | | | region, | [place], [place] | [place] | | | | | unspecified | [address] | [address] | | | | | Procedures | Phone: | Phone: | | | | | CONSULT TO | [phone] | [phone] | | | | | ORTHOPEDICS | Fax: | Fax: | | | | | AND | [phone] | [phone] | | | | | REHABILITATI | [...] | | | | | | [place], | | | | | | | [place] | | | | | | | [address] | | | | | | | Phone: | | | | | | | [phone] | | | | | | | Fax: | | | | | | | [phone] | +--------+--------+ + + + + Encounter Details +--------+---------+ + + + | Date | Type | Department | Care Team | Description | +--------+---------+ + + + | 04/19/ | Office | Orthopaedics at | Jaswant Angeles MD | Unspecified | | 2007 | Visit | [facility] [address] | [address] | Disorders of Bursae | | | | Ave Mailcode: CH12A | [address] | and Tendons in | | | | [place] for [facility] | [place], [place] | Shoulder Region | | | | and Healing, | [address] | (Primary Dx) | | | | | [phone] | | | | | Floor [place], [place] | | | | | | [address] | | | | | | [phone] | | | +--------+---------+ + + + [...]
--- OUTSIDE RECORDS SUMMARY | ~2019-04-17 | XMS | Encounter Summary ---
Demographics + + + | Address | [address] | | | [place] [address] | + + + | Home Phone [...] | [facility] | | | and [place] [...] Team Providers + +------+ + | Care Lace Roller Name | Role | Phone | + +------+ + | Dominic Carlin MD | PCP | | + +------+ + Encounter Details +--------+ + + + + | Date | Type | Department | Care Team | Description | +--------+ + + + + | 09/11/ | Hospital | [facility] | Conversion | Pain | | 2016 | Encounter | [address] | Transaction, | | | | | [address] | Provider Unknown | | | | [facility] | [phone] | | | | | [address] | (Fax) | | | | | [phone] | | | +--------+ + + + [...]
--- OUTSIDE RECORDS SUMMARY | ~2019-04-17 | XMS | Encounter Summary ---
Demographics + + + | Address | [address] | | | [place] [address] | + + + | Home Phone [...] + | Author | [facility] | + + + | Organization | [facility] | + + + | Address | Unknown | + + + | Phone | Unavailable | + + + Support + + +---------+ + | Name | Relationship | Address | Phone | + + +---------+ + | Gautam Ray | ECON | Unknown | | + + +---------+ + Care Team Providers + +------+ + | Care Diesel Dinkey Operator Name | Role | Phone | [...] | | | | | | [place], | | | | | | | [place] | | | | | | | [address] | | | | | | | Phone: | | | | | | | [phone] | | | | | | | Fax: | | | | | | | [phone] | +--------+--------+ + + + + Encounter Details +--------+---------+ + + + | Date | Type | Department | Care Team | Description | +--------+---------+ + + + | 06/14/ | Office | Orthopaedics at | Jaswant Angeles MD | Unspecified | | 2008 | Visit | [facility] [address] | [address] | Disorders of Bursae | | | | Ave Mailcode: CH12A | [address] | and Tendons in | | | | [facility] | [place], [place] | Shoulder Region; | | | | and Healing, | [address] | Radicular Syndrome | | | | Building | [phone] | of [place] | | | | Floor [place], [place] | | | | | | [address] | | | | | | [phone] | | | +--------+---------+ + + + [...]
--- OUTSIDE RECORDS SUMMARY | ~2019-04-17 | XMS | Encounter Summary ---
Demographics + + + | Address | [address] | | | [place] [address] | + + + | Home Phone [...] + | Organization | [facility] [...] Team Providers + +------+ + | Care Die Developer Name | Role | Phone | [...] | | [address] | [place] [address] | | | | | [place] | [phone] | | | | | [address] | | | | | | [phone] | | | +--------+---------+ + + + [...] from t he original. Wes Melvin MD [address] [place] [address], [address] [place] [id number] FAX: NEUROSURGERY FOLLOW-UP CHIEF COMPLAINT: Chief Complaint [...] Discectomy Fusion; Surgeon: Wes Melvin MD; Location: [facility] MAIN OR CURRENT MEDICATIONS: Current [...]
--- OUTSIDE RECORDS SUMMARY | ~2019-04-17 | XMS | Encounter Summary ---
Demographics + + + | Address | [address] | | | [place] [address] | + + + | Home Phone | | + + + | Preferred Language | Unknown | + + + | Marital Status | Single | + + + | Confucianism Affiliation | Unknown | + + + | Race | or | + + + | Ethnic Group | Not or | + + + Author + + + | Author | [facility] | + + + [...] Team Providers + +------+ + | Care Microsoft Bi Architect Name | Role | Phone | [...] in shoulder | [address] | [place], | | | | | region, | [place], [place] | [place] | | | | | unspecified | [address] | [address] | | | | | Procedures | Phone: | Phone: | | | | | CONSULT TO | [phone] | [phone] | | | | | ORTHOPEDICS | | Fax: | | | | | AND | | [phone] | | | | | REHABILITATI | [...] | | | | | | [place], | | | | | | | [place] | | | | | | | [address] | | | | | | | Phone: | | | | | | | [phone] | | | | | | | Fax: | | | | | | | [phone] | +--------+--------+ + + + + Encounter Details +--------+---------+ + + + | Date | Type | Department | Care Team | Description | +--------+---------+ + + + | 02/08/ | Office | Orthopaedics at | Jaswant Angeles MD | Shoulder Pain; | | 2007 | Visit | [facility] [address] | [address] | Unspecified | | | | Ave Mailcode: CH12A | [address] | Disorders of Bursae | | | | [place] for [facility] | [place], [place] | and Tendons in | | | | and Healing, | [address] | Shoulder Region | | | | | [phone] | | | | | Floor [place], [place] | | | | | | [address] | | | | | | [phone] | | | +--------+---------+ + + + [...] has underg one physical therapy without significant mcc benefit. He has a history of left [...] | | + +---------+ + + | [facility] DEPARTMENT OF | | | | | [...]
--- OUTSIDE RECORDS SUMMARY | ~2019-04-17 | XMS | Encounter Summary ---
Demographics + + + | Address | [address] | | | [place] [address] | + + + | Home Phone [...] Organization | [facility] | | | and [...] Team Providers + +------+ + | Care Slasher Hand Name | Role | Phone | [...] [address] | | | | | [place], [place] | [place] [address] | | | | | [address] | [phone] | | | | | [phone] | | | +--------+--------+ + + + [...]
--- OUTSIDE RECORDS SUMMARY | ~2019-04-17 | XMS | Encounter Summary ---
Demographics + + + | Address | [address] | | | [place] [address] | + + + | Home Phone [...] + | Organization | [facility] | | | and [...] Team Providers + +------+ + | Care Funeral Director And Embalmer Name | Role | Phone | + +------+ + | Dominic Carlin MD | PCP | | + +------+ + Encounter Details +--------+ + + + + | Date | Type | Department | Care Team | Description | +--------+ + + + + | 12/25/ | Hospital | [facility] | [place] King | Cervical spondylosis | | 2015 | Encounter | MED CTR XRAY [address] | [address] | with myelopathy; | | | | [place] | [facility] [address] | Degenerative disc | | | | [place] [address] | [place] [address] | disease, cervical; | | | | [phone] | [phone] | Cervical cord | | | | | | myelomalacia ([facility]); | | | | | [...] Postop. COMPARISON: Multiple priors. FINDINGS: Visualized | [facility] | | skull base and [...] + + | Performing | Address | City/State/[facility] | Phone Number | | Organization | | | | + + + + + | [facility] | [address] | [place] | [phone] | | [facility] | | [address] | | | - IMAGING | | [...]
--- OUTSIDE RECORDS SUMMARY | ~2019-04-17 | XMS | Encounter Summary ---
Demographics + + + | Address | [address] | | | [place] [address] | + + + | Home Phone [...] | Organization | [facility] [...] Team Providers + +------+ + | Care Pan Reclaim Processor Name | Role | Phone | + +------+ + PCP | Unavailable | + +------+ + Encounter Details +--------+ + + + + | Date | Type | Department | Care Team | Description | +--------+ + + + + | 11/24/ | Hospital | [facility] MEDICAL | Conversion | | | 2005 - | Encounter | CENTER SURGICAL [address] | Transaction, | | | | | [address] | Provider Unknown | | | 11/25/ | | [place] | [phone] | | | 2005 | | [address] | (Fax) | | | | | [phone] | | | +--------+ + + + [...]
--- OUTSIDE RECORDS SUMMARY | ~2019-04-17 | XMS | Encounter Summary ---
Demographics + + + | Address | [address] | | | [place] [address] | + + + | Home Phone [...] Organization | [facility] | | | and [place] [...] Team Providers + +------+ + | Care Eradicator Name | Role | Phone | + [...] [address] | | | | | [place], [place] | [place] [address] | | | | | [address] | [phone] | | | | | [phone] | | | +--------+--------+ + + + [...]
--- OUTSIDE RECORDS SUMMARY | ~2019-04-17 | XMS | Encounter Summary ---
Demographics + + + | Address | [address] | | | [place] [address] | + + + | Home Phone | | + + + | Preferred Language | Unknown | + + + | Marital Status | Single | + + + | Islam Affiliation | 1041 | + + + | Race | Unknown | + + + | Ethnic Group | Unknown | + + + Author + + + | Author | [facility] | | | and [place] | + + + | Organization | [facility] | | | and [...] Team Providers + +------+ + | Care Bunch Maker Name | Role | Phone | [...] + + | 07/11/ | [facility] | [facility] | [place]o [place] | Cervical spondylosis | | 2015 | Visit | NEUROSURGERY [address] | [address] | with myelopathy | | | | [address] | [address] | (Primary Dx); | | | | [place], [place] | [place] [address] | Cervical cord | | | | [address] | [phone] | myelomalacia (HCC); | | | | [phone] | | Degenerative disc | | | [...] differen t from the original. GINO Ponce [address] [place] [address], [address] [place] [address] FAX: NEUROSURGERY HISTORY AND PHYSICAL EXAMINATION CHIEF [...] has no apparent deficits with short or terminal carman memory. CRANIAL NERVES: II: Acuity is intact. [...] Intrinsics 5 4 Ulnar Intrinsics 5 4 Shirt Closer Strength 5 4 Hip Flexion 4 4 [...]
--- OUTSIDE RECORDS SUMMARY | ~2019-04-17 | XMS | Encounter Summary ---
Demographics + + + | Address | [address] | | | [place] [address] | + + + | Home Phone [...] + | Organization | [facility] | | | and [...] Team Providers + +------+ + | Care Digital Marketing Associate Name | Role | Phone | + +------+ + PCP | Unavailable | + +------+ + Encounter Details +--------+ + + + + | Date | Type | Department | Care Team | Description | +--------+ + + + + | 05/16/ | Hospital | [facility] | Conversion | DDD (degenerative | | 2012 | Encounter | [facility] | Transaction, | disc disease); | | | | [address] | Provider Unknown | Neuralgia; Chronic | | | | [place], [place] | | ischemic right MCA | | | | [address] | (Fax) | stroke | | | | [phone] | | | +--------+ + + + [...] Alford ALEXANDER1945MRI CERVICAL | | SPINE WO BIECLAXU37/31/2013 2:28 PM HISTORY: Degenerative disc disease with [...]
--- OUTSIDE RECORDS SUMMARY | ~2019-04-17 | XMS | Encounter Summary ---
Demographics + + + | Address | [address] | | | [place] [address] | + + + | Home Phone [...] | Organization | [facility] | [...] Team Providers + +------+ + | Care Conduit Bender Name | Role | Phone | + +------+ + | Dominic Carlin MD | PCP | | + +------+ + Encounter Details +--------+ + + + + | Date | Type | Department | Care Team | Description | +--------+ + + + + | 07/27/ | Hospital | [facility] | Giovana Thomas, | | | 2014 | Encounter | MED CTR ACUTE | PT [address] | | | | | PHYSICAL THERAPY | [place] | | | | | [address] | [address] | | | | | [place] [address] | | | | | | [phone] | | | +--------+ + + + [...]
--- OUTSIDE RECORDS SUMMARY | ~2019-04-17 | XMS | Encounter Summary ---
Demographics + + + | Address | [address] | | | [place] [address] | + + + | Home Phone [...] | Organization | [facility] [...] Providers + +------+ + | Care Light Industrial Supervisor Name | Role | Phone | [...] + + | 07/11/ | Office | [facility] | Haroldo King | Cervical spondylosis | | 2015 | Visit | NEUROSURGERY [address] | [address] | with myelopathy | | | | [address] | [address] | (Primary Dx); | | | | [place], [place] | [place] [address] | Cervical cord | | | | [address] | [phone] | myelomalacia (HCC); | | | | [phone] | | Degenerative disc | | | [...] differen t from the original. GINO Ponce [address] [place] [address], [address] [place] [address] FAX: NEUROSURGERY HISTORY AND PHYSICAL EXAMINATION CHIEF [...] has no apparent deficits with short or superintendent container terminal memory. CRANIAL NERVES: II: Acuity is intact. [...] Intrinsics 5 4 Ulnar Intrinsics 5 4 Pinball Machine Repairer Strength 5 4 Hip Flexion 4 4 [...]
--- OUTSIDE RECORDS SUMMARY | ~2019-04-17 | XMS | Encounter Summary ---
Demographics + + + | Address | [address] | | | [place] [address] | + + + | Home Phone [...] Organization | [facility] | | [...] Team Providers + +------+ + | Care Veterinary Manager Name | Role | Phone | + +------+ + | Dominic Carlin MD | PCP | | + +------+ + Encounter Details +--------+ + + + + | Date | Type | Department | Care Team | Description | +--------+ + + + + | 07/11/ | [facility] | [facility] | Wes Melvin MD | Cervical cord | | 2015 | Encounter | MED CTR XRAY [address] | [address] | myelomalacia (HCC); | | | | [place] | [place] [address] | Cervical spondylosis | | | | [place] [address] | [phone] | with myelopathy; | | | | [phone] | | Essential | | | | [...] ST. | [address] | [place], [place] | [phone] | | [facility] | | [address] | | | - IMAGING | | [...]
--- OUTSIDE RECORDS SUMMARY | ~2019-04-17 | XMS | Encounter Summary ---
Demographics + + + | Address | [address] | | | [place] [address] | + + + | Home Phone [...] Author + + + | Author | [facility] [employer] [facility] | + + + | Organization | [facility] | + + + | Address | Unknown | + + + | Phone | Unavailable | + + + Support + + +---------+ + | Name | Relationship | Address | Phone | + + +---------+ + | Gautam Ray | ECON | Unknown | | + + +---------+ + Care Team Providers + +------+ + | Care Machine Programmer Name | Role | Phone | [...] | in shoulder | Rd | Rd [place], | | | | | region, | [place], [place] | [place] | | | | | unspecified | [address] | [address] | | | | | Procedures | Phone: | Phone: | | | | | CONSULT TO | [phone] | [phone] | | | | | ORTHOPEDICS | Fax: | Fax: | | | | | AND | [phone] | [phone] | | | | | REHABILITATI | [...] | 2008 | Visit | Center at [facility] [address] | [address] | Cervical | | | | [address] | [place], | Radiculopathy | | | | Mailcode: CH8N | [place] [address] | | | | | [place] [facility] | [phone] | | | | | and Healing, | | | | | | Building | | | | | | Floor [place], [place] | | | | | | [address] | | | | | | [phone] | | | +--------+---------+ + + + [...]
--- OUTSIDE RECORDS SUMMARY | ~2019-04-17 | XMS | Encounter Summary ---
Demographics + + + | Address | [address] | | | [place] [address] | + + + | Home Phone [...] + | Organization | [facility] [...] Team Providers + +------+ + | Care Blanket Washer Name | Role | Phone | [...] [address] | | | | | | [place] | | | | | | [address] | | | | | | [phone] | | | +--------+ + + + [...]
--- OUTSIDE RECORDS SUMMARY | ~2019-04-17 | XMS | Encounter Summary ---
Demographics + + + | Address | [address] | | | [place] [address] | + + + | Home Phone [...] + + + | Author | [facility] [employer] [facility] [...] + +------+ + | Care Vice President Integrated Name | Role | Phone | + [...] | | | | | | [place], | | | | | | | [place] | | | | | | | [address] | | | | | | | Phone: | | | | | | | [phone] | | | | | | | Fax: | | | | | | | [phone] | +--------+--------+ + + + + Encounter Details +--------+---------+ + + + | Date | Type | Department | Care Team | Description | +--------+---------+ + + + | 03/05/ | Office | Orthopaedics at | Jaswant Angeles MD | Shoulder Pain; | | 2007 | Visit | [facility] [address] | [address] | Injury of Axillary | | | | Ave Mailcode: CH12A | [address] | Nerve; Unspecified | | | | [facility] | [place], [place] | Disorders of Bursae | | | | and Healing, | [address] | and Tendons in | | | | [facility] | [phone] | Shoulder Region | | | | Floor [place], [place] | | | | | | [address] | | | | | | [phone] | | | +--------+---------+ + + + [...] | + +---------+ + + | [facility] DEPARTMENT OF | | | | | [...]
--- OUTSIDE RECORDS SUMMARY | ~2019-04-17 | XMS | Encounter Summary ---
Demographics + + + | Address | [address] | | | [place] [address] | + + + | Home Phone [...] Organization | [facility] | | | and [...] Team Providers + +------+ + | Care Body Specialist Name | Role | Phone | + +------+ + | Dominic Carlin MD | PCP | | + +------+ + Encounter Details +--------+ + + + + | Date | Type | Department | Care Team | Description | +--------+ + + + + | 07/11/ | Hospital | [facility] | Wes Melvin MD | | | 2015 | Encounter | MED CTR LABORATORY | [address] | | | | | [address] | [place] [address] | | | | | [place] | [phone] | | | | | [address] | | | | | | [phone] | | | +--------+ + + + [...]
--- OUTSIDE RECORDS SUMMARY | ~2019-04-17 | XMS | Encounter Summary ---
Demographics + + + | Address | [address] | | | [place] [address] | + + + | Home Phone [...] + | Organization | [facility] | | | and [place] [...] Team Providers + +------+ + | Care Tile Trimmer Name | Role | Phone | [...] | MD [address] | [address] | | | | | Procedures | [address] | [place], | | | | | MRI Lumbar | [place], | [place] | | | | | Spine wo | [place] [address] | [address] | | | | | Contrast | Phone: | Phone: | | | | | | [phone] | [phone] | | | | | | Fax: | Fax: | | | | | | [phone] | [phone] | +--------+--------+ + + + + Reason [...] | MD [address] | [address] | | | | | Procedures | [address] | [place], | | | | | MRI Lumbar | [place], | [place] | | | | | Spine wo | [place] [address] | [address] | | | | | Contrast | Phone: | Phone: | | | | | | [phone] | [phone] | | | | | | Fax: | Fax: | | | | | | [phone] | [phone] | +--------+--------+ + + + + Encounter Details +--------+ + + + + | Date | Type | Department | Care Team | Description | +--------+ + + + + | 01/30/ | Hospital | [facility] | Wes Melvin MD | Back pain | | 2013 | Encounter | MED CTR MRI [address] | [address] | | | | | [place], | [place] [address] | | | | | [place] [address] | [phone] | | | | | [phone] | | | +--------+ + + + [...] + | MISCELLANEOUS LAB | | | [phone] | + +---------+ + + | MISCELANIOUS LAB | | | [phone] | + +---------+ + + documented in this encounter Visit Diagnoses + + | Diagnosis | + + | Back pain Backache, unspecified | + + documented in this encounter"
--- OUTSIDE RECORDS SUMMARY | ~2019-04-17 | XMS | Encounter Summary ---
Demographics + + + | Address | [address] | | | [place] [address] | + + + | Home Phone [...] | Organization | [facility] | | [...] Team Providers + +------+ + | Care Pit Clerk Name | Role | Phone | [...] | | [address] | [place] [address] | | | | | [place] | [phone] | | | | | [address] | | | | | | [phone] | | | +--------+ + + + [...]
--- OUTSIDE RECORDS SUMMARY | ~2019-04-17 | XMS | Encounter Summary ---
Demographics + + + | Address | [address] | | | [place] [address] | + + + | Home Phone [...] + | Organization | [facility] | [...] Team Providers + +------+ + | Care Administrative Sales Assistant Name | Role | Phone | + +------+ + PCP | Unavailable | + +------+ + Encounter Details +--------+ + + + + | Date | Type | Department | Care Team | Description | +--------+ + + + + | 05/16/ | Hospital | [facility] | Conversion | DDD (degenerative | | 2012 | Encounter | [facility] | Transaction, | disc disease); | | | | [address] | Provider Unknown | Neuralgia; Chronic | | | | [place], [place] | | ischemic right MCA | | | | [address] | (Fax) | stroke | | | | [phone] | | | +--------+ + + + [...] Alford ALEXANDER1945MRI CERVICAL | | SPINE WO [id number]/31/2013 2:28 PM HISTORY: Degenerative disc disease with [...]
[~2019-04-17 18:39] MED LIST: ALEVE220 M1 PO; ASPIR-LOW81 MG PO; CRUTCH1 EACH MC; LIPITOR40 MG PO; LISINOPRIL10 MG PO; LORATADINE10 MG PO; MECLIZINE HCL12.5 MG PO; NAPROXEN500 MG PO; NORCO 7.5-3251 EACH PO; NORVASC10 MG PO; TRAMADOL HCL50 MG PO; ULTRAM50 MG PO
[2019-04-17] MEDS ORDERED: MECLIZINE HCL25 MG PO (21:05)
--- NOTE | 2019-04-18 19:46 | EKG ---
[facility] [address] [facility] [place] [address] Signed Normal sinus rhythm Incomplete right bundle branch block Borderline ECG No previous ECGs available Confirmed by HOLLIE HAUSER DO ([id number]) on 04/18/2019 7:45:51 PM Electronically Signed By: HOLLIE HAUSER DO 04/18/19 194 PATIENT NAME: ISA OSMAN Electrocardiogram DATE OF : 43 PHYSICIAN: HOLLIE HAUSER DO REPORT #: [id number] REPORT IS CONFIDENTIAL AND NOT TO BE RELEASED WITHOUT AUTHORIZATION
== END 2019-04-17 21:15 | disposition home or self-care (01) ==
LOC: ED 18:39
DX: R42 Dizziness and giddiness (principal); I10 Essential (primary) hypertension; E78.5 Hyperlipidemia, unspecified; Z86.73 Personal history of transient ischemic attack (TIA), and cerebral infarction without residual deficits; Z87.891 Personal history of nicotine dependence
CPT/HCPCS: 71045; 80053; 83735; 84484; 85025; 93005; 93010; 96360; 99284-25; J7040

== ENCOUNTER 2019-04-20 12:30 | Emergency (ER) | payer MEDICARE, OTHER ==
[~2019-04-20] VITALS: Ht 170.2 cm; Wt 91.2 kg
--- OUTSIDE RECORDS SUMMARY | ~2019-04-20 | XMS | Clinical Summary ---
Demographics + + + | Address | [address] | | | [place] [address] | + + + | Home Phone | | + + + | Preferred Language | Unknown | + + + | Marital Status | Single | + + + | Methodist Affiliation | Unknown | + + + | Race | or | + + + | Ethnic Group | Not or | + + + Author + + + | Author | [facility] | + + + | Organization | [facility] | + + + | Address | Unknown | + + + | Phone | Unavailable | + + + Support + + +---------+ + | Name | Relationship | Address | Phone | + + +---------+ + | Gautam Ray | ECON | Unknown | | + + +---------+ + Care Team Providers + +------+ + | Care Trim And Burr Operator Name | Role | Phone | + +------+ + PCP | Unavailable | + +------+ + Source Comments JOSSUE is fully live on both [facility] and [facility] Allergies No Known Allergies Medications + + + +---------+------+------+-------+ | Medication | Sig | Dispensed | Refills | Star | End | Statu | | | | | | t | Date | s | | | | | | Date | | | + + + +---------+------+------+-------+ | LISINOPRIL ORAL | one po qd | | 0 | | | Activ | | | | | | | | e | + + + +---------+------+------+-------+ | diazepam (VALIUM) | Take one by mouth | 2 | 0 | 10/2 | | Activ | | 5 mg Oral | one hour prior to | | | 0/20 | | e | | TabletIndications: | procedure and one by | | | 08 | | | | Shoulder pain, | mouth | | | | | | | Injury of axillary | | | | | | | | nerve | | | | | | | + + + +---------+------+------+-------+ Active Problems + + + | Problem | Noted Date | + + + | 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 | + + + | Shoulder pain | 02/09/2008 | + + + Family History + + +------+ + | Medical History | Relation | Name | Comments | + + +------+ + | Diabetes | Brother | | | + + +------+ + | Non-contributory | Father | | | + + +------+ + | Non-contributory | Mother | | | + + +------+ + + +------+ + + | Relation | Name | Status | Comments | + +------+ + + | Brother | | | | + +------+ + + | Father | | | | + +------+ + + | Mother | | | | + +------+ + + Social History + +-------+ +--------+------+ | Tobacco Use | Types | Packs/Day | Years | Date | | | | | Used | | + +-------+ +--------+------+ | Never Smoker | | | | | + +-------+ +--------+------+ + + +---------+ + | Alcohol Use | Drinks/Week | oz/Week | Comments | + + +---------+ + | Yes | | | | + + +---------+ + + + [...] recent travel history available. | + + Last Filed Vital Signs + + + + + | Vital Sign | Reading | Time Taken | Comments | + + + + + | Blood Pressure | 164/86 | 05/29/2008 11:20 AM | | | | | PST | | + + + + + | Pulse | 83 | 05/29/2008 11:20 AM | | | | | PST | | + + + + + | Temperature | 36.9 C (98.4 F) | 05/29/2008 11:20 AM | | | | | PST | | + + + + + | Respiratory Rate | 12 | 05/29/2008 11:20 AM | | | | | PST | | + + + + + | Oxygen Saturation | - | - | | + + + + + | Inhaled Oxygen | - | - | | | Concentration | | | | + + + + + | Weight | 104.3 kg (230 lb) | 05/29/2008 11:20 AM | | | | | PST | | + + + + + | Height | 167.6 cm (5' 6") | 05/29/2008 11:20 AM | | | | | PST | | + + + + + | Body Mass Index | 37.12 | 05/29/2008 11:20 AM | | | | | PST | | + + + + + Plan of Treatment + + + + + | Health Maintenance | Due Date | Last Done | Comments | + + + + + | Pneumococcal | | | | | vaccination (1 of 2 | 9 | | | | - PCV13) | | | | + + + + + | Influenza (Flu) | | | | | vaccination (#1) | 9 | | | + + + + + Results Not on filefrom Last 3 Months Insurance + +--------+ +--------+-------+---------+--------+ | Payer | Benefi | Subscriber | Effect | Phone | Address | Type | | | t Plan | ID | alejandro | | | | | | / | | Dates | | | | | | Group | | | | | | + +--------+ +--------+-------+---------+--------+ | [employer] | FIRST | xxxxxxxxx | 11/14/18 | | | PPO | | | CHOICE | | 99-Pre | | | | | | | | sent | | | | | | HEALTH | | | | | | + +--------+ +--------+-------+---------+--------+ | [facility] | [employer] | [phone] | Effect | | | Agency | | SERVICE | | | alejandro | | | | | | HEALTH | | for | | | | | | | | all | | | | | | SERVIC | | dates | | | | | | E | | | | | | + +--------+ +--------+-------+---------+--------+ + +--------+ +--------+ + + | Guarantor Name | Accoun | Relation to | Date | Phone | Billing Address | | | t Type | Patient | of | | | | | | | | | | + +--------+ +--------+ + + | Buck Bell | Person | Self | [birth year] | [address] | | | al/Cristi | | 1945 | [phone] | [place] | | | carolyn | | | 4 (Home) | [address] | | | | | | [phone] | | | | | | | 0 (Work) | | + +--------+ +--------+ + + | Buck Bell | Agency | Self | [birth year] | [address] | | | | | 1945 | [phone] | [place] | | | | | | 4 (Home) | [address] | | | | | | [phone] | | | | | | | 0 (Work) | | + +--------+ +--------+ + + Advance Directives + + + + + | Type | Date Recorded | Patient | Explanation | | | | Strip Cutter | | + + + + + | Advance | | | | | Directives and | | | | | Living Will | | | | + + + + + | Power of | | | | | Carrier Associate | | | | + + + + +
--- OUTSIDE RECORDS SUMMARY | ~2019-04-20 | XMS | Encounter Summary ---
Demographics + + + | Address | [address] | | | [place] [address] | + + + | Home Phone | | + + + | Preferred Language | Unknown | + + + | Marital Status | Single | + + + | Mandaen Affiliation | 1041 | + + + | Race | Unknown | + + + | Ethnic Group | Unknown | + + + Author + + + | Author | [facility] | | | and [place] | + + + | Organization | [facility] | | | and [place] | + + + | Address | Unknown | + + + | Phone | Unavailable | + + + Support + + +---------+ + | Name | Relationship | Address | Phone | + + +---------+ + | Guy Osman | ECON | Unknown | | + + +---------+ + Care Team Providers + +------+ + | Care Sap Pi Architect Name | Role | Phone | + +------+ + PCP | Unavailable | + +------+ + Encounter Details +--------+ + + + + | Date | Type | Department | Care Team | Description | +--------+ + + + + | 05/16/ | Hospital | [facility] | Conversion | DDD (degenerative | | 2012 | Encounter | [facility] | Transaction, | disc disease); | | | | [address] | Provider Unknown | Neuralgia; Arterial | | | | [place], [place] | | ischemic stroke, | | | | [address] | (Fax) | MCA, left, presumed | | | | [phone] | | (HCC); | | | | | | Chronic ischemic | | | | | | right MCA stroke | +--------+ + + + + Social [...] + +--------+ + + + | MRI BRAIN WO | Routin | 05/16/2013 | | Results for this | | CONTRAST | e | 2:28 PM | | procedure are in the | | | | PST | | results section. | + +--------+ + + + documented in this encounter Results MRI Brain wo Contrast (05/16/2013 2:28 PM PST) + + | Specimen | + + | | + + + + + | Impressions | Performed At | + + + | 1. There is no evidence of acute ischemia. 2. Previous | | | infarction of the posterior right temporal lobe with chronic | | | microvascular ischemic changes throughout the white matter. | | | | | + + + + + + | Narrative | Performed At | + + + | [facility] 1945 MRI BRAIN WO CONTRAST 05/16/2013 2:28 | | | PM HISTORY: Underlying history of previous bilateral MCA stroke | | | with neck and back pain COMPARISON: None. TECHNIQUE: Imaging | | | was performed on a1.5 Shireen MRI system. Multiplanar sequences | | | according to a standard department protocol were acquired without | | | contrast. FINDINGS: On diffusion imaging, there is hyperintense | | | diffusion signal present along the posterior right temporal lobe. | | | There is no restricted diffusion with ADC map. There appears to be | | | cystic encephalomalacia in this area on T2 sequences. Imaging | | | findings are suggestive of subacute to chronic ischemic changes. | | | On gradient imaging, there is mild patchy punctate susceptibility | | | artifact in the globus pallidus bilaterally which most likely reflects | | | senescent changes. There is no intra-axial mass. There is no | | | extra-axial fluid collection. The major intracranial vessels | | | demonstrate normal T2 flow voids. There is moderate diffuse global | | | parenchymal volume loss. Hyperintense T2 signal is noted throughout | | | the subcortical and deep white matter with a confluent area of | | | increased T2 signal along the area of prior infarction. The bone | | | marrow demonstrates normal signal intensity. The craniocervical | | | junction is maintained. The pituitary gland is normal. The upper | | | cervical cord shows normal volume and signal. The patient is | | | status post bilateral cataract surgery. The paranasal sinuses are | | | clear. The mastoid air cells are well aerated. The parotid glands are | | | normal in appearance. | | + + + + + | Procedure Note | + + | [place], Rad Conversion - 01/06/2019 7:45 PM PDT [facility] A[facility]1944MRI BRAIN WO | | MVNTAWOK35/31/2013 2:28 PM HISTORY: Underlying history of previous bilateral MCA stroke | | with neck and back pain COMPARISON: None. TECHNIQUE:Imaging was performed on a1.5 Shireen | | MRI system. Multiplanar sequences according to a standard department protocol were | | acquired without contrast. FINDINGS: On diffusion imaging, there is hyperintense | | diffusion signal present along the posterior right temporal lobe. There is no restricted | | diffusion with ADC map. There appears to be cystic encephalomalacia in this area on T2 | | sequences. Imaging findings are suggestive of subacute to chronic ischemic changes. On | | gradient imaging, there is mild patchy punctate susceptibility artifact in the globus | | pallidus bilaterally which most likely reflects senescent changes. There is no | | intra-axial mass. There is no extra-axial fluid collection. The major intracranial | | vessels demonstrate normal T2 flow voids. There is moderate diffuse global parenchymal | | volume loss. Hyperintense T2 signal is noted throughout the subcortical and deep white | | matter with a confluent area of increased T2 signal along the area of prior infarction. | | The bone marrow demonstrates normal signal intensity. The craniocervical junction is | | maintained. The pituitary gland is normal. The upper cervical cord shows normal volume | | and signal. The patient is status post bilateral cataract surgery. The paranasal sinuses | | are clear. The mastoid air cells are well aerated. The parotid glands are normal in | | appearance. IMPRESSION: 1. There is no evidence of acute ischemia.2. Previous | | infarction of the posterior right temporal lobe with chronic microvascular ischemic | | changes throughout the white matter. Electronically signed by Garcia Harvey MD on | | 05/16/2013 2:49 PM | | | |IMPRESSION: | |1. There is no evidence of acute ischemia. | |2. Previous infarction of the posterior right temporal lobe with chronic microvascular isc hemic changes throughout the white matter. | | | | | + + documented in this encounter Visit Diagnoses + + | Diagnosis | + + | DDD (degenerative disc disease) Degeneration of intervertebral disc, site unspecified | + + | Neuralgia Neuralgia, neuritis, and radiculitis, unspecified | + + | Arterial ischemic stroke, MCA, left, presumed (HCC) Unspecified cerebral | | artery occlusion with cerebral infarction | + + | Chronic ischemic right MCA stroke Transient ischemic attack (TIA), and cerebral | | infarction without residual deficits | + + documented in this encounter"
--- OUTSIDE RECORDS SUMMARY | ~2019-04-20 | XMS | Encounter Summary ---
Demographics + + + | Address | [address] | | | [place] [address] | + + + | Home Phone | | + + + | Preferred Language | Unknown | + + + | Marital Status | Single | + + + | Episcopalian Affiliation | 1041 | + + + | Race | Unknown | + + + | Ethnic Group | Unknown | + + + Author + + + | Author | [facility] | | | and [place] | + + + | Organization | [facility] | | | and [place] | [...] Team Providers + +------+ + | Care Binding Nicker Name | Role | Phone | + +------+ + | Dominic Carlin MD | PCP | | + +------+ + Encounter Details +--------+ + + + + | Date | Type | Department | Care Team | Description | +--------+ + + + + | 07/11/ | Hospital | [facility] | Wes Melvin MD | | | 2015 | Encounter | [facility] | [address] | | | | | [address] | [place] [address] | | | | | [place] | [phone] | | | | | [address] | | | | | | [phone] | | | +--------+ + + + [...] hours | tablet | | 15 | | | tablet | as needed for Muscle | | | | | | | spasms. | | | | | + + + +---------+ + + | | Take 1-2 tablets by | 120 | 0 | 07/28/19 | | | HYDROcodone-acetamin | mouth every 4 hours | tablet | | 15 | | | ophen (NORCO) 5-325 | as [...] Not on filedocumented as of this encounter Visit Diagnoses Not on filedocumented in this encounter"
--- OUTSIDE RECORDS SUMMARY | ~2019-04-20 | XMS | Encounter Summary ---
Demographics + + + | Address | [address] | | | [place] [address] | + + + | Home Phone | | + + + | Preferred Language | Unknown | + + + | Marital Status | Single | + + + | Congregational Affiliation | 1041 | + + + | Race | Unknown | + + + | Ethnic Group | Unknown | + + + Author + + + | Author | [facility] | | | and [place] | + + + | Organization | [facility] | | | and [place] [...] Team Providers + +------+ + | Care Ceramics Teacher Name | Role | Phone | + +------+ + | Dominic Carlin MD | PCP | | + +------+ + Reason for Visit +--------+ + | Reason | Comments | +--------+ + | Other | presurgical check-in instructions | +--------+ + Encounter Details +--------+ + + + + | Date | Type | Department | Care Team | Description | +--------+ + + + + | 07/24/ | Telephone | [facility] | Wes Melvin MD | Other (presurgical | | 2015 | | NEUROSURGERY [address] | [address] | check-in | | | | [address] | [place] [address] | instructions) | | | | [place] | [phone] | | | | | [address] | | | | | | [phone] | | | +--------+ + + + [...]
--- OUTSIDE RECORDS SUMMARY | ~2019-04-20 | XMS | Encounter Summary ---
Demographics + + + | Address | [address] | | | [place] [address] | + + + | Home Phone | | + + + | Preferred Language | Unknown | + + + | Marital Status | Single | + + + | Religion Affiliation | 1041 | + + + | Race | Unknown | + + + | Ethnic Group | Unknown | + + + Author + + + | Author | [facility] | | | and [place] | + + + | Organization | [facility] | | | and [place] [...] Team Providers + +------+ + | Care Mainspring Strip Inspector Name | Role | Phone | + +------+ + | Dominic Carlin MD | PCP | | + +------+ + Encounter Details +--------+ + + + + | Date | Type | Department | Care Team | Description | +--------+ + + + + | 12/22/ | Orders Only | [facility] | Provider, | | | 2018 | | SYSTEM GENER[facility] OP | MD [address] | | | | | [address] | [address] | | | | | [address] [place], [place] | [place] [address] | | | | | [address] | | | | | | [phone] | | | +--------+ + + + [...]
--- OUTSIDE RECORDS SUMMARY | ~2019-04-20 | XMS | Encounter Summary ---
Demographics + + + | Address | [address] | | | [place] [address] | + + + | Home Phone | | + + + | Preferred Language | Unknown | + + + | Marital Status | Single | + + + | Orthodoxy Affiliation | 1041 | + + + | Race | Unknown | + + + | Ethnic Group | Unknown | + + + Author + + + | Author | [facility] | | | and [place] | + + + | Organization | [facility] | | | and [...] Team Providers + +------+ + | Care Supervisor Evaporator Name | Role | Phone | + +------+ + | Dominic Carlin MD | PCP | | + +------+ + Reason for Visit + + + | Reason | Comments | + + + | Follow-up | pre-op | + + + Encounter Details +--------+---------+ + + + | Date | Type | Department | Care Team | Description | +--------+---------+ + + + | 07/11/ | Office | [facility] | Haroldo King | Cervical spondylosis | | 2015 | Visit | NEUROSURGERY [address] | [address] | with myelopathy | | | | [address] | [address] | (Primary Dx); | | | | [place], [place] | [place] [address] | Cervical cord | | | | [address] | [phone] | myelomalacia (HCC); | | | | [phone] | | Degenerative disc | | | | | | disease, cervical | +--------+---------+ + + + Social History [...] + + + | Blood Pressure | 120/61 | 07/11/2014 9:01 AM | | | | | PST | | + + + + + | Pulse | 63 | 07/11/2014 9:01 AM | | | | | PST | | + + + + + | Temperature | - | - | | + + + + + | Respiratory Rate | 16 | 07/11/2014 9:01 AM | | | | | PST | | + + + + + | Oxygen Saturation | - | - | | + + + + + | Inhaled Oxygen | - | - | | | Concentration | | | | + + + + + | Weight | 96.6 kg (213 lb) | 07/11/2014 9:01 AM | | | | | PST | | + + + + + | Height | 170.2 cm (5' 7") | 07/11/2014 9:01 AM | | | | | PST | | + + + + + | Body Mass Index | 33.36 | 07/11/2014 9:01 AM | | | | | PST | | + + + + + documented in this encounter Patient Instructions Patient Instructions Haroldo King PA - 07/11/2014 9:14 AM PSTDo not eat or drink anything after midnight the night before your surgery. If you have any changes in her medic al condition between now and the time of her surgery please let us know documented in this encounter Progress Notes Haroldo King PA - 07/11/2014 9:18 AM PSTFormatting of this note might be differen t from the original. GINO Ponce [address] [place] [address], [address] [place] [address] FAX: NEUROSURGERY HISTORY AND PHYSICAL EXAMINATION CHIEF COMPLAINT: Chief Complaint Patient presents with Follow-up pre-op HISTORY OF PRESENT ILLNESS: The patient is a 69 y.o. male with the complaint of back pain and leg pain that began over 6 months ago. The patient was seen in our office previously by Dr. weber. He had a repeat MRI of his lumbar spine as well as cervical spine. He was found to have severe cervical disease as well as cervical myelopathy. The patient continues to garcia ve symptoms that radiate into his arms in his hands bilaterally. He also continues with low back pain and leg pain. The patient does have balance disturbances as well as loss of fin e motor skills of his hands bilaterally. Today we are reviewing his upcoming surgery on his cervical spine. He had multiple questions today of these were answered. He also asked abo ut his low back symptoms and about possible surgery on his low back The symptoms began to worsen especially in his left leg. The symptoms have been gradually worsening. He rates the pain as mild to severe depending on what he is doing. The symptom s are continuous. He describes the pain as aching, sharp and shooting. The pain moves down from his back into his posterolateral lower leg. His symptoms improve with rest. His symptoms worsen with standing, walking, bending and twisting. He has tried no conservative measures recently. PAST MEDICAL HISTORY: Past Medical History Diagnosis Date High blood pressure High cholesterol PAST SURGICAL HISTORY: Past Surgical History Procedure Laterality Date Carpal tunnel release Both Hands 12/28 CURRENT MEDICATIONS: Current Outpatient Prescriptions Medication Sig Dispense Refill ibuprofen (ADVIL, MOTRIN) 400 mg tablet Take 400 mg by mouth every 6 hours as needed. No current facility-administered medications for this visit. [...] no rheumatoid arthritis. PHYSICAL EXAMINATION: Blood pressure 120/61, pulse 63, resp. rate 16, height 1.702 m (5' 7"), weight 96.616 kg (2 13 lb). Body mass index is 33.35 kg/(m^2). GENERAL: Buck Bell is in no acute distress with unlabored respirations. The gino tierom does appear uncomfortable throughout the exam today. [...] has no apparent deficits with short or intermediate project manager memory. CRANIAL NERVES: II: Acuity is intact. [...] Intrinsics 5 4 Ulnar Intrinsics 5 4 Fingerprint Clerk Strength 5 4 Hip Flexion 4 4 [...] cord myelomalacia (HCC) Degenerative disc disease, cervical GENERAL DIAGNOSES: Past Medical History Diagnosis Date High blood pressure High cholesterol PLAN: It was a pleasure meeting and evaluating this patient today, and I greatly appreciate the r eferral. The patient has severe cervical disease with cord compression and cord changes. Prashanth chung we discussed C3-C7 cervical fusion. We discussed the risks, alternatives, and benefits to surgical intervention with Mr. Kimberly holt in clinic. These risks included but were not limited to , stroke, heart attack, nu mbness, weakness, paralysis, failure of fusion, failure of hardware, subsidence, adjacent se gment degeneration, cerebrospinal fluid leak, bleeding, infection, injury to surrounding tis sues and organs, injury from positioning, injury to the nerves, difficulty with breathing, d ifficulty with swallowing, difficulty with voice change, and need for additional surgery. Surgical options were discussed and the technique to be employed was described in detail to him. All his questions were answered. We discussed that the goal of the surgery is to prevent progression of his disease, but it is not considered a cure. We also discussed that although some patients may obtain 100% sym ptom relief, it is realistic to anticipate that some symptoms will continue postoperatively despite a successful surgery. We estimate it is reasonable for him to experience an 60-80% improvement in his symptoms after he heals. We also discussed that there is no guarantee that surgery will provide improvement in his c ondition, and indeed may even worsen the symptoms. We also discussed that in the course of the procedure the operative plan may be altered to include more, less, or different levels d epending upon findings in order to provide him with the best possible outcome. I did tell the patient that as he is healing from his cervical surgery we can take a closer look at his lumbar spine and discuss his options. However he should probably wait for at l east 3 months before discussing surgery on his low back. I had a lengthy discussion with the patient about his options for care including surgical a nd non-surgical options. I recommended we get a new cervical and lumbar MRI given his worse claudia. I am also authorizing a cervical fusion for him to expedite his care. I am concerned that he will eventually need surgery at both sites. ELECTRONICALLY SIGNED BY: GINO Ponce, 07/11/2014 9:18 documented in th is encounter Plan of Treatment Not on filedocumented as of this encounter Visit Diagnoses + + | Diagnosis | + + | Cervical spondylosis with myelopathy - Primary | + + | Cervical cord myelomalacia (HCC) Other myelopathy | + + | Degenerative disc disease, cervical Degeneration of cervical intervertebral disc | + + documented in this encounter
--- OUTSIDE RECORDS SUMMARY | ~2019-04-20 | XMS | Encounter Summary ---
Demographics + + + | Address | [address] | | | [place] [address] | + + + | Home Phone | | + + + | Preferred Language | Unknown | + + + | Marital Status | Single | + + + | Tenriism Affiliation | 1041 | + + + | Race | Unknown | + + + | Ethnic Group | Unknown | + + + Author + + + | Author | [facility] | | | and [place] | + + + | Organization | [facility] | | | and [place] [...] Team Providers + +------+ + | Care Sheriff Officer Name | Role | Phone | + [...] | Specialty | Physical | Diagnoses | Fernando, | | | | Services | Therapy | Cervical | Haroldo | | | | Required | | spondylosis | [address] | | | | | | with | [address] | | | | | | myelopathy | [address] | | | | | | Degenerative | [place], [place] | | | | | | disc | [address] | | | | | | disease, | Phone: | | | | | | cervical | [phone] | | | | | | Cervical | Fax: | | | | | | cord | [phone] | | | | | | myelomalacia | | | | | | | ([facility]) S/P | | | | | | [...] + + | 08/23/ | Office | [facility] | [place], [place] | Cervical spondylosis | | 2015 | Visit | NEUROSURGERY [address] | [address] | with myelopathy | | | | [address] | [address] | (Primary Dx); | | | | [place], [place] | [place] [address] | Degenerative disc | | | | [address] | [phone] | disease, cervical; | | | | [phone] | | Cervical cord | | | | | | myelomalacia (HCC); | | | | | | S/P [...] t from the original. NICKOLAS Ponce [address] [facility], [address] [place] [address] FAX: NEUROSURGERY SURGICAL FOLLOW-UP CHIEF COMPLAINT: Chief [...] Overall, the patient is doing well. The director multimedia to recovery will take many months and [...] in th is encounter Plan of Treatment + + +--------+ + + | Name [...] Postop. COMPARISON: Multiple priors. FINDINGS: Visualized | [facility] | | skull base and facial structures [...] | + + + + + | [facility] | [address] | [place], [place] | [phone] | | [facility] | | [address] | | | - IMAGING | | [...]
--- OUTSIDE RECORDS SUMMARY | ~2019-04-20 | XMS | Encounter Summary ---
Demographics + + + | Address | [address] | | | [place] [address] | + + + | Home Phone [...] | Organization | [facility] | | | and [...] Team Providers + +------+ + | Care Car Sales Consultant Name | Role | Phone | + +------+ + PCP | Unavailable | + +------+ + Encounter Details +--------+ + + + + | Date | Type | Department | Care Team | Description | +--------+ + + + + | 05/21/ | Hospital | [facility] | | Lumbago | | 2000 | Encounter | [address] | | [address] | | | | | | [place] | | | | | | [address] | | | | | | [phone] | | | +--------+ + + + [...] + | Diagnosis | + + | Lumbago | + + documented in this encounter"
--- OUTSIDE RECORDS SUMMARY | ~2019-04-20 | XMS | Encounter Summary ---
Demographics + + + | Address | [address] | | | [place] [address] | + + + | Home Phone | | + + + | Preferred Language | Unknown | + + + | Marital Status | Single | + + + | Rastafarian Affiliation | 1041 | + + + | Race | Unknown | + + + | Ethnic Group | Unknown | + + + Author + + + | Author | [facility] | | | and [place] | + + + | Organization | [facility] | | | and [place] [...] Team Providers + +------+ + | Care Industrial Chemistry Teacher Name | Role | Phone | [...] | | | | | | | Cervical | | | | | | | spondylosis | | | | | | | with | | | | | | | myelopathy | | | | | | | Cervical | | | | | | | spondylosis | | | | | | | with | | | | | | | myelopathy | | | | | | | Procedures | | | | | | | CO | | | | | | | ARTHRODESIS | | | | | | | ANT | | | | | | | INTERBODY | | | | | | | INC | | | | | | | DISCECTOMY, | | | | | | | CERVICAL | | | | | | | BELOW C2 | | | | | | | FUSION | | | | | | | CERVICAL | | | | | | | ANTERIOR W/ | | | | | | | PLATING | | | +--------+--------+ + + + + Encounter Details +--------+ + + + + | Date | Type | Department | Care Team | Description | +--------+ + + + + | 07/26/ | Hospital | [facility] | Wes Melvin MD | | | 2015 - | Encounter | [facility] | [address] | | | | | [address] | [place] [address] | | | 07/27/ | | [place] [address] | [phone] | | | 2015 | | [phone] | | | +--------+ + + + [...] + + + | Blood Pressure | 140/61 | 07/27/2014 7:44 AM | | | | | PDT | | + + + + + | Pulse | 77 | 07/27/2014 8:45 AM | | | | | PDT | | + + + + + | Temperature | 36.9 C (98.4 F) | 07/27/2014 7:44 AM | | | | | PDT | | + + + + + | Respiratory Rate | 18 | 07/27/2014 7:44 AM | | | | | PDT | | + + + + + | Oxygen Saturation | 96% | 07/27/2014 8:45 AM | | | | | PDT | | + + + + + | Inhaled Oxygen | - | - | | | Concentration | | | | + + + + + | Weight | 94.8 kg (209 lb) | 07/26/2014 7:12 AM | | | | | PDT | | + + + + + | Height | 170.2 cm (5' 7") | 07/26/2014 7:12 AM | | | | | PDT | | + + + + + | Body Mass Index | 32.73 | 07/26/2014 7:12 AM | | | | | PDT [...] + + documented as of this encounter Discharge Summaries Haroldo King PA - 07/27/2014 7:17 AM PDTFormatting of this note might be differen t from the original. [facility] NEUROSURGERY DISCHARGE SUMMARY Patient Name: Buck Bell Patient : 1945 PCP: Dominic Carlin Date of Admission: 07/26/2014 Date of Discharge: 07/27/2014 Primary Discharge Dx: Cervical spondylosis with myelopathy Cervical stenosis Cervical degenerative disc disease Cervical foraminal stenosis Cervical kyphosis Cervical radiculopathy Secondary Discharge Dx(s): Patient Active Problem List Diagnosis Cervical spondylosis with myelopathy Cervical cord myelomalacia Degenerative disc disease, cervical High blood pressure High cholesterol Procedures Procedure(s): C3-4, C4-5, C5-6, C6-7 Anterior Cervical Discectomy Fusion Hospital Course: Post op the patient did well. Swallowing was improved and pain was controlled. Pt ambulate d well Condition on Discharge: Stable Discharge Medications: Discharge Medications New Medications Details cyclobenzaprine 10 mg tablet Take 1 tablet by mouth every 8 hours as needed for Muscle spasms. aka: FLEXERIL HYDROcodone-acetaminophen 5-325 mg per tablet Take 1-2 tablets by mouth every 4 hours as needed for Pain. aka: NORCO lactulose 10 g/15 mL solution Take 30 mLs by mouth Daily as needed for up to 10 days. Discontinued Medications ibuprofen 400 mg tablet aka: ADVCAM MOTRIN ; Current Discharge Medication List START taking these medications Medication Dose Last Dose Taken; cyclobenzaprine (FLEXERIL) 10 mg tablet 10 mg Take 1 tablet by mouth every 8 hours as needed for Muscle spasms. Quantity: 90 tablet Refills: 3 Start date: 07/27/2014 HYDROcodone-acetaminophen (NORCO) 5-325 mg per tablet 1-2 tablets Take 1-2 tablets by mouth every 4 hours as needed for Pain. Quantity: 120 tablet Refills: 0 Start date: 07/27/2014 lactulose 10 g/15 mL solution 30 mLs Take 30 mLs by mouth Daily as needed for up to 10 days. Quantity: 240 mL Refills: PRN Start date: 07/27/2014 End date: 08/06/2014 Follow-Up: 4 weeks documented in th is encounter Discharge Instructions AttachmentsThe following attachments cannot be sent through Care Everywhere.CERVICAL FUSION , DISCHARGE INSTRUCTIONS FOR ([place])documented in this encounter Medications at Time of Discharge [...] documented as of this encounter Progress Notes Yesica Sol RN - 07/26/2014 7:25 PM PDTAmbulated pt to the bathroom again using th e FWW and pt ambulated much better, safer. Balance issues not as difficult this time.Electr onically signed by Yesica Sol RN at 07/26/2014 10:34 PM PDTFeYesica gonzalez RN - 07/26/2014 6:00 PM PDTAssisted pt up for the first time since surgery and walked him to the bathroom. Pt report balance issues and that it occurs 'a lot' normally for him. He report s falling several times at home and has injured his shoulders in his previously, 'torn rotat or cuffs'. Pt has difficulty lifting his arms up above nipple heigth d/t weak deltiod/upper arms. Pt had a shuffle gait and used the wall and furniture to help keep his balance. I p rovided CGA. Spoke with PT and she provided a walker for the pt. documented in this encounter Plan of Treatment Not on filedocumented as of this encounter Procedures + +--------+ + + + | Procedure Name | Priori | Date/Time | Associated Diagnosis | Comments | | | ty | | | | + +--------+ + + + | XR CERVICAL SPINE 2 | STAT | 07/26/2014 | | Results for this | | OR 3 VIEWS | | 3:12 PM | | procedure are in the | | | | PDT | | results section. | + +--------+ + + + | FUSION CERVICAL | | 07/26/2014 | Cervical | | | ANTERIOR W/ PLATING | | 9:52 AM | spondylosis with | | | | | PDT | myelopathy | | + +--------+ + + + +---+--------+ | | Case | | | Notes | | | | | | Origin | | | al | | | Schedu | | | ler | | | Commen | | | ts/Not | | | es | | | Sent | | | Over | | | 06/07/ | | | 2014 @ | | | | | | 1636:C | | | -ARM, | | | DRILL, | | | | | | MICROS | | | COPE, | | | ATLANT | | | IS | | | TRANSL | | | ATIONA | | | L, | | | GRAFTO | | | N, | | | CORNER | | | STONE, | | | OSI | | | FLAT | | | TOPEST | | | IMATED | | | TIME: | | | 3 | | | HOURS | +---+--------+ | | | | | Specia | | | l | | | Needs | | | Tanner | | | | | | (Medtr | | | onic) | | | - | | | Atlant | | | is | | | Transl | | | ationa | | | l | +---+--------+ documented in this encounter Results XR CERVICAL SPINE 2 OR 3 VIEWS (07/26/2014 3:12 PM PDT) + + | Specimen | + + | | + + + + + | Narrative | Performed At | + + + | EXAM: XR CERVICAL SPINE 2 OR 3 VIEWS dated 07/26/2014 12:00 AM | [facility] | | HISTORY:postop COMPARISON: Preoperative x-ray dated January 19, | | | 2013. FINDINGS: Frontal and lateral views of the cervical spine. | | | Interval anterior cervical discectomy and fusion changes from C3 | | | through C7. Interbody grafts are in place at the intervening disc | | | spaces. Spinal alignment is anatomic. Expected operative changes | | | are present in the precervical soft tissues. A drain catheter is in | | | place. IMPRESSION - No evidence for an immediate | | | complication. Dictated and Signed by: Sonu Barber MD | | | Electronically signed: 07/26/2014 3:20 PM | | + + + + + | Procedure Note | + + | Chun Colón Results In - 07/26/2014 3:23 PM PDT EXAM: XR CERVICAL SPINE 2 OR 3 VIEWS | | dated 07/26/2014 12:00 AMHISTORY:postopCOMPARISON: Preoperative x-ray dated January 19, | | 2013.FINDINGS: Frontal and lateral views of the cervical spine. Interval | | anteriorcervical discectomy and fusion changes from C3 through C7. Interbody grafts | | arein place at the intervening disc spaces. Spinal alignment is anatomic. Expected | | operative changes are present in the precervical soft tissues. A draincatheter is in | | place.IMPRESSION -No evidence for an immediate complication.Dictated and Signed by: | | Sonu Barber MD Electronically signed: 07/26/2014 3:20 PM | |in place at the intervening disc spaces. Spinal alignment is anatomic. | |Expected operative changes are present in the precervical soft tissues. A drain | |catheter is in place. | | | |IMPRESSION - | | | |No evidence for an immediate complication. | | | |Dictated and Signed by: Soun Barber MD | | Electronically signed: 07/26/2014 3:20 PM | + + + +---------+ + + | Performing | Address | City/State/Zipcode | Phone Number | | Organization | | | | + +---------+ + + | [facility] | | | | + +---------+ + + documented in this encounter Visit Diagnoses Not on filedocumented in this encounter Administered Medications + +---------+ +------+-------+------+ | Medication Order | MAR | Action | Dose | Rate | Site | | | Action | Date | | | | + +---------+ +------+-------+------+ | ceFAZolin (ANCEF, KEFZOL) 2 g | New Bag | 07/28/19 | 2 g | 100 | | | in sodium chloride 0.9% 50 mL | | 15 1:46 | | mL/hr | | | IVPB 2 g, Intravenous, | | AM PDT | | | | | Administer over 30 Minutes, EVERY | | | | | | | 8 HOURS INTERVAL, First dose on | | | | | | | [facility] 07/26/14 at 1800, For 2 doses, | | | | | | | Start 8 hours after previous | | | | | | | dose. Last dose to be given | | | | | | | within 24 hours of surgery end | | | | | | | time. Ok to d/c without | | | | | | | completing antibiotics., | | | | | | | Post-op/Phase II | | | | | | + +---------+ +------+-------+------+ +---------+ +-----+-------+---+ | New Bag | 07/27/19 | 2 g | 100 | | | | 15 6:48 | | mL/hr | | | | PM PDT | | | | +---------+ +-----+-------+---+ +---+---+ | | | +---+---+ + +-------+ +-------+---+---+ | cyclobenzaprine (FLEXERIL) | Given | 07/27/19 | 10 mg | | | | tablet 10 mg 10 mg, Oral, EVERY | | 15 3:38 | | | | | 8 HOURS PRN, Muscle spasms, | | PM PDT | | | | | Starting [facility] 07/26/14 at 1516, | | | | | | | Post-op/Phase II | | | | | | + +-------+ +-------+---+---+ +---+---+ | | | +---+---+ + +-------+ +--------+---+---+ | docusate sodium (COLACE) | Given | 07/28/19 | 100 mg | | | | capsule 100 mg 100 mg, Oral, 2 | | 15 9:17 | | | | | TIMES DAILY PRN, Constipation, | | AM PDT | | | | | Starting [facility] 07/26/14 at 1516, | | | | | | | First line agent for | | | | | | | constipation, Post-op/Phase II | | | | | | + +-------+ +--------+---+---+ +---+---+ | | | +---+---+ + +-------+ +---------+---+---+ | enalaprilat (VASOTEC) injection | Given | 07/27/19 | 1.25 mg | | | | 1.25 mg 1.25 mg, Intravenous, | | 15 3:34 | | | | | EVERY 6 HOURS PRN, SBP > 160, | | PM PDT | | | | | Starting [facility] 07/26/14 at 1516, | | | | | | | Post-op/Phase II | | | | | | + +-------+ +---------+---+---+ +---+---+ | | | +---+---+ + +-------+ +--------+---+---+ | fentaNYL injection 25-50 mcg | Given | 07/27/19 | 50 mcg | | | | 25-50 mcg, Intravenous, EVERY 5 | | 15 2:28 | | | | | MIN PRN, Pain, Starting [facility] | | PM PDT | | | | | 07/26/14 at 1321, Maximum total | | | | | | | dose 250 mcg. PACU IV Narcotic | | | | | | | Priority: Only use fentanyl for | | | | | | | immediate post-op pain (one dose) | | | | | | | or breakthrough pain when any | | | | | | | other IV narcotics ordered have | | | | | | | been ineffective (if ordered). | | | | | | | If both morphine and | | | | | | | hydromorphone are ordered, use | | | | | | | morphine first, and use | | | | | | | hydromporphone if morphine | | | | | | | ineffective., Recovery/Phase I | | | | | | + +-------+ +--------+---+---+ +-------+ +--------+---+---+ | Given | 07/27/19 | 50 mcg | | | | | 15 2:17 | | | | | | PM PDT | | | | +-------+ +--------+---+---+ +---+---+ | | | +---+---+ + +-------+ + +---+---+ | HYDROcodone-acetaminophen | Given | 07/28/19 | 1 tablet | | | | (NORCO) 5-325 mg per tablet 1-2 | | 15 11:35 | | | | | tablet 1-2 tablet, Oral, EVERY 4 | | AM PDT | | | | | HOURS PRN, Pain, Starting [facility] | | | | | | | 07/26/14 at 1516, If ineffective | | | | | | | use [place] 10/325 if ordered. If | | | | | | | not tolerated, use Percocet then | | | | | | | Oxycodone if ordered., | | | | | | | Post-op/Phase II | | | | | | + +-------+ + +---+---+ +-------+ +---------+---+---+ | Given | 07/27/19 | 2 | | | | | 15 6:52 | tablets | | | | | PM PDT | | | | +-------+ +---------+---+---+ +---+---+ | | | +---+---+ + + + +------+---+---+ | labetalol (TRANDATE) 5 mg/mL | Given by | 07/27/19 | 5 mg | | | | injection 3-5 mg 3-5 mg, | Other | 15 2:50 | | | | | Intravenous, EVERY 5 MIN PRN, For | | PM PDT | | | | | SBP > 180, DBP > 100, Starting | | | | | | | [facility] 07/26/14 at 1321, Hold if HR < | | | | | | | 50. Maximum total dose 30mg. | | | | | | | Notify anesthesia if patient | | | | | | | requires more than 30mg., | | | | | | | Recovery/Phase I | | | | | | + + + +------+---+---+ +---+---+ | | | +---+---+ + +---------+ +---+---+---+ | lactated ringers (LR) infusion | New Bag | 07/27/19 | | | | | at 100 mL/hr, Intravenous, | | 15 11:00 | | | | | CONTINUOUS, Starting [facility] 07/26/14 | | AM PDT | | | | | at 0745, Start with large bore | | | | | | | (18-20) gauge., Pre-op | | | | | | + +---------+ +---+---+---+ +---------+ +---+-------+---+ | New Bag | 07/27/19 | | 100 | | | | 15 7:54 | | mL/hr | | | | AM PDT | | | | +---------+ +---+-------+---+ +---+---+ | | | +---+---+ + +-------+ + +---+---+ | methocarbamol (ROBAXIN) tablet | Given | 07/28/19 | 1,500 mg | | | | 1,500 mg 1,500 mg, Oral, EVERY 6 | | 15 9:17 | | | | | HOURS PRN, Muscle spasms, | | AM PDT | | | | | Starting [facility] 07/26/14 at 1516, | | | | | | | Post-op/Phase II | | | | | | + +-------+ + +---+---+ +---+---+ | | | +---+---+ + +-------+ +------+---+---+ | morphine injection 2-4 mg 2-4 | Given | 07/27/19 | 2 mg | | | | mg, Intravenous, EVERY 2 HOURS | | 15 3:34 | | | | | PRN, Severe Pain, Starting [facility] | | PM PDT | | | | | 07/26/14 at 1516, Slow IV push, | | | | | | | not faster than 2 mg/minute. If | | | | | | | ineffective or not tolerated, use | | | | | | | hydromorphone IV if ordered., | | | | | | | Post-op/Phase II | | | | | | + +-------+ +------+---+---+ +---+---+ | | | +---+---+ + +-------+ +-------+---+---+ | pantoprazole (PROTONIX) | Given | 07/28/19 | 40 mg | | | | injection 40 mg 40 mg, | | 15 9:17 | | | | | Intravenous, DAILY, First dose on | | AM PDT | | | | | [facility] 07/26/14 at 1545, If | | | | | | | reconstituting, mix each 40 mg | | | | | | | vial with 10 mL NS to make 4 | | | | | | | mg/mL., Post-op/Phase II | | | | | | + +-------+ +-------+---+---+ +-------+ +-------+---+---+ | Given | 07/27/19 | 40 mg | | | | | 15 3:34 | | | | | | PM PDT | | | | +-------+ +-------+---+---+ +---+---+ | | | +---+---+ + +-------+ +--------+---+---+ | senna (SENOKOT) tablet 8.6 mg | Given | 07/28/19 | 8.6 mg | | | | 8.6 mg, Oral, 2 TIMES DAILY PRN, | | 15 9:17 | | | | | Constipation, Starting [facility] | | AM PDT | | | | | 07/26/14 at 1516, If docusate | | | | | | | ineffective or not ordered, | | | | | | | Post-op/Phase II | | | | | | + +-------+ +--------+---+---+ +---+---+ | | | +---+---+ documented in this encounter
--- OUTSIDE RECORDS SUMMARY | ~2019-04-20 | XMS | Encounter Summary ---
Demographics + + + | Address | [address] | | | [place] [address] | + + + | Home Phone | | + + + | Preferred Language | Unknown | + + + | Marital Status | Single | + + + | Jewish Affiliation | Unknown | + + + | Race | or | + + + | Ethnic Group | Not or | + + + Author + + + | Author | [facility] | + + + | Organization | [facility] | + + + | Address | Unknown | + + + | Phone | Unavailable | + + + Support + + +---------+ + | Name | Relationship | Address | Phone | + + +---------+ + | Gautam Ray | ECON | Unknown | | + + +---------+ + Care Team Providers + +------+ + | Care Telephone Cleaner Name | Role | Phone | + [...] | | | | | | [place], | | | | | | | [place] | | | | | | | [address] | | | | | | | Phone: | | | | | | | [phone] | | | | | | | Fax: | | | | | | | [phone] | +--------+--------+ + + + + Encounter Details +--------+---------+ + + + | Date | Type | Department | Care Team | Description | +--------+---------+ + + + | 06/14/ | Office | Orthopaedics at | Jaswant Angeles MD | Unspecified | | 2008 | Visit | [facility] [address] | [address] | Disorders of Bursae | | | | Ave Mailcode: CH[address]A | [address] | and Tendons in | | | | [facility] | [place], [place] | Shoulder [place]; | | | | and Healing, | [address] | Radicular Syndrome | | | | Building | [phone] | of Upper Limbs | | | | Floor [place], [place] | | | | | | [address] | | | | | | [phone] | | | +--------+---------+ + + + [...]
--- OUTSIDE RECORDS SUMMARY | ~2019-04-20 | XMS | Encounter Summary ---
Demographics + + + | Address | [address] | | | [place] [address] | + + + | Home Phone [...] + + + | Author | [facility] | | | and [place] | + + + | Organization | [facility] | | | and [place] | [...] Team Providers + +------+ + | Care Machine Whitener Name | Role | Phone | + [...] Description | +--------+--------+ + + + | 07/17/ | Refill | [facility] [place] | Haroldo King | Medication Refill | | 2015 | | NEUROSURGERY [address] | [address] | | | | | [address] | [address] | | | | | [place], [place] | [place] [address] | | | | | [address] | [phone] | | | | | [phone] | | | +--------+--------+ + + + [...]
--- OUTSIDE RECORDS SUMMARY | ~2019-04-20 | XMS | Encounter Summary ---
Demographics + + + | Address | [address] | | | [place] [address] | + + + | Home Phone | | + + + | Preferred Language | Unknown | + + + | Marital Status | Single | + + + | Jew Affiliation | 1041 | + + + | Race | Unknown | + + + | Ethnic Group | Unknown | + + + Author + + + | Author | [facility] | | | and [place] | + + + | Organization | [facility] | | | and [...] Team Providers + +------+ + | Care Harbour Master Name | Role | Phone | + [...] | MD [address] | [address] | | | | | Procedures | [address] | [place], | | | | | MRI Lumbar | [place], | [place] | | | | | Spine wo | [place] [address] | [address] | | | | | Contrast | Phone: | Phone: | | | | | | [phone] | [phone] | | | | | | Fax: | Fax: | | | | | | [phone] | [phone] | +--------+--------+ + + + + Diagnostic/Screening (Routine) +--------+--------+ + + + + | Status | Reason | Specialty | Diagnoses / | Referred By | Referred To | | | | | Procedures | Contact | Contact | +--------+--------+ + + + + | Closed | | Radiology | Diagnoses | Wes Melvin | [facility] | | | | | Cervical | MD [address] | [address] | | | | | spondylosis | [address] | [place], | | | | | with | [facility], | [place] | | | | | myelopathy | [place] [address] | [address] | | | | | Cervical | Phone: | Phone: | | | | | cord | [phone] | [phone] | | | | | myelomalacia | Fax: | Fax: | | | | | (HCC) | [phone] | [phone] | | | | | Degenerative | [...] | | | | | cervical | [place], | [place], [place] | | | | | region | [place] | [address] | | | | | Cervical | [address] | Phone: | | | | | nerve root | Phone: | [phone] | | | | | impingement | [phone] | Fax: | | | | | SPINAL | Fax: | [phone] | | | | | STENOSIS C4, | [phone] | | | | | | WITH [...] | | [address] | [place] [address] | (Primary Dx); | | | | [place] | [phone] | Cervical cord | | | | [address] | | myelomalacia ([facility]); | | | | [phone] | | Degenerative disc | | | [...] research this procedure more by going to: [email or web address] Click the Treatment Options link on the left column. Then, look for Anterior Cervical Discectomy and Fusion (ACDF). documented in this encounter Progress Notes Wes Melvin MD - 01/19/2014 9:08 AM PDTFormatting of this note might be different from t he original. 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 CRANIAL NERVES: II: Acuity is intact. [...] Intrinsics 5 4 Ulnar Intrinsics 5 4 It Programmer Analyst Strength 5 4 Hip Flexion 4 4 [...] + | MISCELLANEOUS LAB | | | [phone] | + +---------+ + + | MISCELANIOUS LAB | | | [phone] | + +---------+ + + MRI Cervical [...] | in the cervical cord at the [id number]. Multilevel degenerative disc and spondylitic | | [...] + | MISCELLANEOUS LAB | | | [phone] | + +---------+ + + | MISCELANIOUS LAB | | | [phone] | + +---------+ + + documented in [...]
--- OUTSIDE RECORDS SUMMARY | ~2019-04-20 | XMS | Encounter Summary ---
Demographics + + + | Address | [address] | | | [place] [address] | + + + | Home Phone | | + + + | Preferred Language | Unknown | + + + | Marital Status | Single | + + + | Anabaptist Affiliation | 1041 | + + + | Race | Unknown | + + + | Ethnic Group | Unknown | + + + Author + + + | Author | [facility] | | | and [place] | + + + | Organization | [facility] | | | and [...] Team Providers + +------+ + | Care Overnight Caregiver Name | Role | Phone | + [...] | | | | | [address] [facility] [address] | [place] [address] | | | | | [place] | [phone] | | | | | [address] | | | | | | [phone] | | | +--------+ + + + [...]
--- OUTSIDE RECORDS SUMMARY | ~2019-04-20 | XMS | Encounter Summary ---
Demographics + + + | Address | [address] | | | [place] [address] | + + + | Home Phone | | + + + | Preferred Language | Unknown | + + + | Marital Status | Single | + + + | Episcopal Affiliation | 1041 | + + + | Race | Unknown | + + + | Ethnic Group | Unknown | + + + Author + + + | Author | [facility] | | | and [place] | + + + | Organization | [facility] | | | and [...] Team Providers + +------+ + | Care Excel Developer Name | Role | Phone | + [...] | | [address] | [place] [address] | | | | | [place] | [phone] | | | | | [address] | | | | | | [phone] | | | +--------+---------+ + + + [...] from t he original. Wes Melvin MD [address] [place] [address], [address] [place] [id number] FAX: NEUROSURGERY FOLLOW-UP CHIEF COMPLAINT: Chief Complaint [...] Discectomy Fusion; Surgeon: Wes Melvin MD; Location: [facility] MAIN OR CURRENT MEDICATIONS: Current Outpatient Prescriptions [...]
--- OUTSIDE RECORDS SUMMARY | ~2019-04-20 | XMS | Encounter Summary ---
Demographics + + + | Address | [address] | | | [place] [address] | + + + | Home Phone [...] Author + + + | Author | [facility] | | | and [place] | + + + | Organization | [facility] | | | and [place] [...] Team Providers + +------+ + | Care Share Dairy Farmer Name | Role | Phone | + +------+ + PCP | Unavailable | + +------+ + Encounter Details +--------+ + + + + | Date | Type | Department | Care Team | Description | +--------+ + + + + | 04/19/ | Hospital | [facility] | | | | 1999 | Encounter | [facility] [address] | | | [address] | | | | | | [place] | | | | | | [address] | | | | | | [phone] | | | +--------+ + + + [...]
--- OUTSIDE RECORDS SUMMARY | ~2019-04-20 | XMS | Encounter Summary ---
Demographics + + + | Address | [address] | | | [place] [address] | + + + | Home Phone | | + + + | Preferred Language | Unknown | + + + | Marital Status | Single | + + + | Catholic Affiliation | Unknown | + + + | Race | or | + + + | Ethnic Group | Not or | + + + Author + + + | Author | [facility] | + + + | Organization | [facility] | + + + | Address | Unknown | + + + | Phone | Unavailable | + + + Support + + +---------+ + | Name | Relationship | Address | Phone | + + +---------+ + | Gautam Ray | ECON | Unknown | | + + +---------+ + Care Team Providers + +------+ + | Care Can Reconditioner Name | Role | Phone | + +------+ + PCP | Unavailable | + +------+ + Encounter Details +--------+ + + + + | Date | Type | Department | Care Team | Description | +--------+ + + + + | 06/29/ | Documentati | Orthopaedics at | Oscar Mcclellan MD | | | 2008 | on | [facility] [address] | [address] | | | | | [place] Mailcode: CH12A | [place] Guer[place], | | | | | [facility] | [place] [address] | | | | | and Healing, | [phone] | | | | | | | | | | | Floor [place], [place] | | | | | | [address] | | | | | | [phone] | | | +--------+ + + + [...]
--- OUTSIDE RECORDS SUMMARY | ~2019-04-20 | XMS | Encounter Summary ---
Demographics + + + | Address | [address] | | | [place] [address] | + + + | Home Phone | | + + + | Preferred Language | Unknown | + + + | Marital Status | Single | + + + | Orthodoxy Affiliation | 1041 | + + + | Race | Unknown | + + + | Ethnic Group | Unknown | + + + Author + + + | Author | [facility] | | | and [place] | + + + | Organization | [facility] | | | and [...] Team Providers + +------+ + | Care Stars Specialist Name | Role | Phone | [...] + + + + | 07/26/ | Anesthesia | [facility] | Jaswant Calix MD | | | 2015 | Event | MED CTR OR INTRA OP | [address] | | | | | [address] | [place] | | | | | [place] | [address] | | | | | [address] | [phone] | | | | | [phone] | | | +--------+ + + + + Anesthesia Record + + + + + | Procedure Name | Responsible | Anesthesia Start | Anesthesia Stop Time | | | Anesthesiologist | Time | | + + + + + | C3-4, C4-5, C5-6, | Jaswant Calix MD | 07/26/14 1009 | 07/26/14 1344 | | C6-7 Anterior | | | | | Cervical Discectomy | | | | | Fusion (N/A Neck) | | | | + + + + + +----+---+ + + | Da | T | Event | Comment | | te | i | | | | | m | | | | | e | | | +----+---+ + + | 03 | 0 | | | | /1 | 9 | | | | 2/ | 4 | | | | 20 | 6 | | | | 15 | | | | +----+---+ + + | | 0 | An Checkout | Pre-use anesthesia machine/equipment checkout. | | | 9 | | | | | 4 | | | | | 6 | | | +----+---+ + + | | 1 | An Start | Reassessment prior to anesthesia induction/procedure. | | | 0 | | | | | 0 | | | | | 9 | | | +----+---+ + + | | 1 | Preoxygenat | | | | 0 | ed | | | | 1 | | | | | 2 | | | +----+---+ + + | | 1 | An | | | | 0 | Induction | | | | 1 | | | | | 4 | | | +----+---+ + + | | 1 | An | | | | 0 | Intubation | | | | 1 | | | | | 8 | | | +----+---+ + + | | 1 | Antibiotic | | | | 0 | Given | | | | 2 | | | | | 3 | | | +----+---+ + + | | 1 | an stop | | | | 3 | data | | | | 3 | | | | | 7 | | | +----+---+ + + | | 1 | An Stop | Patient handed off to recovery nurse. | | | 4 | | | | | 4 | | | +----+---+ + + +------+ | Meds | +------+ + + + | Name | Total | + + + | midazolam | 2 mg | + + + | fentaNYL | 260 mcg | + + + | lidocaine 2% | 100 mg | + + + | propofol | 120 mg | + + + | propofol | 171.78 mg | + + + | vecuronium | 3 mg | + + + | ceFAZolin (ANCEF, KEFZOL) 2 g in | 2 g | | sodium chloride 0.9% 50 mL IVPB | | + + + | lactated ringers (LR) infusion | 1,700 mL | + + + + + | Name | + + | N2O Flow Rate (L/Min) | + + | O2 Flow Rate (L/Min) | + + | Insp O2 | + + | Exp SEV | + + | Air Flow Rate (L/Min) | + + + + | No blood administrations on file. | + + +--------+ + + + | Type | Details | Placement | Removal | +--------+ + + + | [READ | 07/26/14; 49; short term use; | 07/26/1449 by | 07/27/14 1117 by | | ONLY] | 07/27/14; 7 | Kaylie Bower, | Karina Copeland | | | | TARIQ | TARIQ Humphreys | | Periph | | | | | eral | | | | | IV - | | | | | Single | | | | | Lumen | | | | | | | | | +--------+ + + + | Airway | Placement Date: 07/26/14; | 07/26/14 1018 by | 07/26/14 1349 by | | | Placement Time: 1018; Mask | Jaswant Calix MD | [place] Aranda, | | | Ventilation: Dif req 2; Airway | | RN | | | Grade: II; Successful Technique: | | | | | Mac; Laryngoscope Blade Size: 3; | | | | | Attempts: 2; Airway Type: | | | | | endotracheal, cuffed, disposable; | | | | | Size: 6.5; Position: Left; | | | | | Airway Tube Secured At: 0.23 m | | | | | (9.06"); Tube Reference Point: | | | | | teeth, secure and patent; Trauma: | | | | | none; Placement Check: verified | | | | | by capnography; Placed By: | | | | | Anesthesiologist; Removal: per | | | | | protocol, removed by RN; Removal | | | | | Date: 07/26/14; Removal Time: | | | | | 1349 | | | +--------+ + + + | Read | 07/26/14; 1314; Bilateral:; neck; | 07/26/14 1314 by | 08/09/18 1342 by | | only - | 08/09/18 (Completed/Removed by | Brittany Cabrera, | User Epic | | | Utility); 1342 (Completed/Removed | RN | | | Incisi | by Utility) | | | | on | | | | +--------+ + + + | Drain/ | 07/26/14; 1326; #1; Right:; | 07/26/14 1326 by | 07/27/14 1117 by | | Device | cervical spine; short term use; | Brittany Cabrera, | Karina Copeland | | Site | 07/27/14; 1117 | RN | TARIQ Humphreys | +--------+ + + + documented in [...] filedocumented in this encounter Administered Medications + +--------+ +------+------+------+ | Medication Order | MAR | Action | Dose | Rate | Site | | | Action | Date | | | | + +--------+ +------+------+------+ | ceFAZolin (ANCEF, KEFZOL) 2 g | Given | 07/27/19 | 2 g | | | | in sodium chloride 0.9% 50 mL | | 15 10:23 | | | | | IVPB 2 g, Intravenous, | | AM PDT | | | | | Administer over 30 Minutes, Prior | | | | | | | to Incision, Starting Armida | | | | | | | 3/12/15 at 0723, For 1 dose, | | | | | | | Administer within 1 hour of | | | | | | | surgical incision., Pre-op | | | | | | + +--------+ +------+------+------+ +---+---+ | | | +---+---+ + +-------+ +--------+---+---+ | fentaNYL injection | Given | 07/27/19 | 25 mcg | | | | Intravenous, PRN, Pain, Starting | | 15 1:27 | | | | | Armida 07/26/14 at 1010, Anesthesia | | PM PDT | | | | | Intra-op | | | | | | + +-------+ +--------+---+---+ +-------+ +--------+---+---+ | Given | 07/27/19 | 25 mcg | | | | | 15 12:33 | | | | | | PM PDT | | | | +-------+ +--------+---+---+ | Given | 07/27/19 | 80 mcg | | | | | 15 10:40 | | | | | | AM PDT | | | | +-------+ +--------+---+---+ +---+---+ | | | +---+---+ + +---------+ +---+---+---+ | lactated ringers (LR) infusion | New Bag | 07/27/19 | | | | | at 100 mL/hr, Intravenous, | | 15 11:00 | | | | | CONTINUOUS, Starting Armida 07/26/14 | | AM PDT | | [...] | | +---+---+ + +-------+ +--------+---+---+ | lidocaine (PF) 2% injection | Given | 03/12/20 | 100 mg | | | | Intravenous, PRN, Starting Armida | | 15 10:14 | | | | | 07/26/14 at 1014, Anesthesia | | AM PDT | | | | | Intra-op | | | | | | + +-------+ +--------+---+---+ +---+---+ | | | +---+---+ + +-------+ +------+---+---+ | midazolam (VERSED) 1 mg/mL | Given | 07/27/19 | 2 mg | | | | injection Intravenous, PRN, | | 15 10:10 | | | | | Anxiety, Starting Armida 07/26/14 at | | AM PDT | | | | | 1010, Anesthesia Intra-op | | | | | | + +-------+ +------+---+---+ +---+---+ | | | +---+---+ + +-------+ +-------+---+---+ | propofol (DIPRIVAN) injection | Given | 07/27/19 | 20 mg | | | | Intravenous, PRN, Starting Armida | | 15 10:41 | | | | | 07/26/14 at 1014, Anesthesia | | AM PDT | | | | | Intra-op | | | | | | + +-------+ +-------+---+---+ +-------+ +--------+---+---+ | Given | 07/27/19 | 100 mg | | | | | 15 10:14 | | | | | | AM PDT | | | | +-------+ +--------+---+---+ +---+---+ | | | +---+---+ + +---------+ + +-------+---+ | propofol (DIPRIVAN) injection | New Bag | 07/27/19 | 12 | 6.8 | | | Intravenous, CONTINUOUS PRN, | | 15 10:41 | mcg/kg/m | mL/hr | | | Starting Armida 07/26/14 at 1041, | | AM PDT | in | | | | Anesthesia Intra-op | | | | | | + +---------+ + +-------+---+ +---+---+ | | | +---+---+ + +-------+ +------+---+---+ | vecuronium (NORCURON) injection | Given | 07/27/19 | 2 mg | | | | Intravenous, PRN, Ventilator | | 15 10:14 | | | | | Dyssynchrony, Starting Armida | | AM PDT | | | | | 07/26/14 at 1010, Anesthesia | | | | | | | Intra-op | | | | | | + +-------+ +------+---+---+ +-------+ +------+---+---+ | Given | 07/27/19 | 1 mg | | | | | 15 10:10 | | | | | | AM PDT | | | | +-------+ +------+---+---+ +---+---+ | | | +---+---+ documented in this encounter
--- OUTSIDE RECORDS SUMMARY | ~2019-04-20 | XMS | Encounter Summary ---
Demographics + + + | Address | [address] | | | [place] [address] | + + + | Home Phone | | + + + | Preferred Language | Unknown | + + + | Marital Status | Single | + + + | Mandaen Affiliation | 1041 | + + + | Race | Unknown | + + + | Ethnic Group | Unknown | + + + Author + + + | Author | [facility] | | | and [place] | + + + | Organization | [facility] | | [...] Providers + +------+ + | Care Manager Merchandising Name | Role | Phone | + +------+ + | Dominic Carlin MD | PCP | | + +------+ + Encounter Details +--------+ + + + + | Date | Type | Department | Care Team | Description | +--------+ + + + + | 01/19/ | [facility] | [facility] | Wes Melvin MD | Spinal stenosis; | | 2013 | Encounter | MED CTR XRAY [address] | [address] | Neck pain | | | | [place] | [place] [address] | | | | | [place] [address] | [phone] | | | | | [phone] | | | +--------+ + + + [...] + + + | XR CERVICAL SPINE 4 | Routin | 01/19/2014 | Spinal stenosis | Results for this | | OR 5 VWS | e | 8:52 AM | Neck pain | procedure are in the | | | | PDT | | results section. | + +--------+ + + + documented in this encounter Results XR Cervical Spine 4 or 5 Vws (01/19/2014 8:52 AM PDT) + + | Specimen | + + | | + + + + + | Narrative | Performed At | + + + | FOUR VIEWS CERVICAL SPINE 01/19/2014 8:52 AM CLINICAL HISTORY: | MISCELANIOUS | | NECK PAIN COMPARISON: CERVICAL MRI MAY 16, 2013 FROM [facility] | LAB | | [facility] FINDINGS: An AP view and lateral [...] PAINCOMPARISON: CERVICAL MRI MAY 16, 2013 FROM [facility] | | [facility]ENTERFINDINGS: An AP view [...] + | MISCELLANEOUS LAB | | | [phone] | + +---------+ + + | MISCELANIOUS LAB | | | [phone] | + +---------+ + + documented in this encounter Visit Diagnoses + + | Diagnosis | + + | Spinal stenosis Spinal stenosis, unspecified region other than cervical | + + | Neck pain Cervicalgia | + + documented in this encounter"
--- OUTSIDE RECORDS SUMMARY | ~2019-04-20 | XMS | Encounter Summary ---
Demographics + + + | Address | [address] | | | [place] [address] | + + + | Home Phone | | + + + | Preferred Language | Unknown | + + + | Marital Status | Single | + + + | Pentecostalism Affiliation | 1041 | + + + | Race | Unknown | + + + | Ethnic Group | Unknown | + + + Author + + + | Author | [facility] | | | and [place] | + + + | Organization | [facility] | | | and [...] Team Providers + +------+ + | Care Operator Command Support Systems Name | Role | Phone | + [...] | | | | | | | [place] | | | | | | | [...] Description | +--------+---------+ + + + | 07/26/ | Surgery | [facility] | Wes Melvin MD | C3-4, C4-5, C5-6, | | 2014 | | MED CTR OR INTRA OP | [address] | C6-7 Anterior | | | | [address] | [place] [address] | Cervical Discectomy | | | | [place] | [phone] | Fusion | | | | [address] | | | | | | [phone] | | | +--------+---------+ + + + [...] might be differen t from the original. [facility] NEUROSURGERY DISCHARGE SUMMARY Patient Name: Buck Bell [...] Discontinued Medications ibuprofen 400 mg tablet aka: ADVIL, MOTRIN ; Current Discharge Medication List START [...] Care Everywhere.CERVICAL FUSION , DISCHARGE INSTRUCTIONS FOR (IRISH)documented in this encounter Medications at Time of [...] PDTAmbulated pt to the bathroom again using e FWW and pt ambulated much better, safer. Balance issues not as difficult this time.Electr onically signed by Yesica Sol RN at 07/26/2014 10:34 PM PDTFetrjakub, Yesica Rasmussen RN - 07/26/2014 6:00 PM PDTAssisted pt up for the first time since surgery and walked him to the bathroom. Pt report balance issues and that it occurs 'a lot' normally for him. He report s falling several times at home and has injured his shoulders in his previously, 'torn rotat or cuffs'. Pt has difficulty lifting his arms up above [facility] d/t weak deltiod/upper arms. Pt had a shuffle gait and used the wall and furniture to help keep his balance. Chevy martinez [facility]. Spoke with PT and she provided a [...] + | [place], Rad Results In - 07/26/2014 3:23 PM PDT [...] | | | |Dictated and Signed by: Sonu Barber MD | | Electronically signed: 07/26/2014 3:20 PM | + + + +---------+ + + | Performing | Address | City/State[facility] | Phone Number | | Organization | | | | + +---------+ + + | [facility] | | | | + +---------+ + + documented in this encounter Visit Diagnoses + + | Diagnosis | + + | Cervical spondylosis with myelopathy | + + documented in this encounter Administered Medications + +--------+ +---------+------+ + | Medication Order | MAR | Action | Dose | Rate | Site | | | Action | Date | | | | + +--------+ +---------+------+ + | bacitracin in NS solution PRN, | Given | 07/27/19 | 50,000 | | Surgical | | Starting Armida 07/26/14 at 1314, | | 15 1:14 | Units | | Site | | Intra-op | | PM PDT | | | | + +--------+ +---------+------+ + +---+---+ | | | +---+---+ documented in this encounter
--- OUTSIDE RECORDS SUMMARY | ~2019-04-20 | XMS | Encounter Summary ---
Demographics + + + | Address | [address] | | | [place] [address] | + + + | Home Phone [...] + + + | Author | [facility] | | | and [place] | + + + | Organization | [facility] | | | and [place] [...] Team Providers + +------+ + | Care Sorting Grapple Operator Name | Role | Phone | [...] | | | | | | [place] | | | | | | [address] | | | | | | [phone] | | | +--------+ + + + [...]
--- OUTSIDE RECORDS SUMMARY | ~2019-04-20 | XMS | Encounter Summary ---
Demographics + + + | Address | [address] | | | [place] [address] | + + + | Home Phone [...] Organization | [facility] | | | and [place] [...] Team Providers + +------+ + | Care Oncology Rn Name | Role | Phone | + [...] [address] | | | | | | [place] | | | | | | [address] | | | | | | [phone] | | | +--------+ + + + [...]
--- OUTSIDE RECORDS SUMMARY | ~2019-04-20 | XMS | Encounter Summary ---
Demographics + + + | Address | [address] | | | [place] [address] | + + + | Home Phone [...] + | Organization | [facility] | | | and [...] Team Providers + +------+ + | Care Admissions Officer Name | Role | Phone | [...] [place] | | | | | | [address] | | | | | | [phone] | | | +--------+ + + + [...]
--- OUTSIDE RECORDS SUMMARY | ~2019-04-20 | XMS | Encounter Summary ---
Demographics + + + | Address | [address] | | | [place] [address] | + + + | Home Phone | | + + + | Preferred Language | Unknown | + + + | Marital Status | Single | + + + | Zoroastrian Affiliation | 1041 | + + + | Race | Unknown | + + + | Ethnic Group | Unknown | + + + Author + + + | Author | [facility] | | | and [place] | + + + | Organization | [facility] | | | [...] Team Providers + +------+ + | Care Claims Support Specialist Name | Role | Phone | [...] | | [address] | [place] [address] | | | | | [place] | [phone] | | | | | [address] | | | | | | [phone] | | | +--------+ + + + [...]
--- OUTSIDE RECORDS SUMMARY | ~2019-04-20 | XMS | Encounter Summary ---
Demographics + + + | Address | [address] | | | [place] [address] | + + + | Home Phone [...] | Organization | [facility] | | | and [place] [...] Team Providers + +------+ + | Care Bin Tripper Operator Name | Role | Phone | [...] | | [address] | [place] [address] | | | | | [place] | [phone] | | | | | [address] | | | | | | [phone] | | | +--------+ + + + [...]
--- OUTSIDE RECORDS SUMMARY | ~2019-04-20 | XMS | Encounter Summary ---
Demographics + + + | Address | [address] | | | [place] [address] | + + + | Home Phone [...] | Organization | [facility] | | | and [...] Team Providers + +------+ + | Care Tugboat Pilot Name | Role | Phone | + +------+ + PCP | Unavailable | + +------+ + Encounter Details +--------+ + + + + | Date | Type | Department | Care Team | Description | +--------+ + + + + | 11/24/ | Hospital | [facility] | Conversion | | | 2005 - | Encounter | CENTER SURGICAL [address] | Transaction, | | | | | KIMBER[address]ULL[address]AN | Provider Unknown | | | 11/25/ | | [place] | [phone] | | | 2005 | | [address] | (Fax) | | | | | [phone] | | | +--------+ + + + [...]
--- OUTSIDE RECORDS SUMMARY | ~2019-04-20 | XMS | Encounter Summary ---
Demographics + + + | Address | [address] | | | [place] [address] | + + + | Home Phone | | + + + | Preferred Language | Unknown | + + + | Marital Status | Single | + + + | Advent Affiliation | 1041 | + + + | Race | Unknown | + + + | Ethnic Group | Unknown | + + + Author + + + | Author | [facility] | | | and [place] | + + + | Organization | [facility] | | | and [...] Team Providers + +------+ + | Care Dimension Warehouse Supervisor Name | Role | Phone | + +------+ + | Dominic Carlin MD | PCP | | + +------+ + Encounter Details +--------+ + + + + | Date | Type | Department | Care Team | Description | +--------+ + + + + | 12/25/ | Hospital | [facility] | Haroldo King | Cervical spondylosis | | 2015 | Encounter | MED CTR XRAY [address] | [address] | with myelopathy; | | | | [address] | [address] [facility] [address] | Degenerative disc | | | | [place] [address] | [place] [address] | disease, cervical; | | | | [phone] | [phone] | Cervical cord | | | | | | myelomalacia ([facility]); | | | | | | S/P [...] Postop. COMPARISON: Multiple priors. FINDINGS: Visualized | [facility] | | skull base and [...] + + | Performing | Address | City/State[facility] | Phone Number | | Organization | | | | + + + + + | [facility] | [address] | [place] | [phone] | | [facility] | | [address] | | | - IMAGING | | [...]
--- OUTSIDE RECORDS SUMMARY | ~2019-04-20 | XMS | Encounter Summary ---
Demographics + + + | Address | [address] | | | [place] [address] | + + + | Home Phone [...] | [facility] | | | and [...] Team Providers + +------+ + | Care Hoop Riveter Name | Role | Phone | + [...] | | [address] | [place] [address] | | | | | [place] | [phone] | | | | | [address] | | | | | | [phone] | | | +--------+ + + + [...]
--- OUTSIDE RECORDS SUMMARY | ~2019-04-20 | XMS | Encounter Summary ---
Demographics + + + | Address | [address] | | | [place] [address] | + + + | Home Phone | | + + + | Preferred Language | Unknown | + + + | Marital Status | Single | + + + | Congregational Affiliation | Unknown | + + + | Race | or | + + + | Ethnic Group | Not or | + + + Author + + + | Author | [facility] | + + + | Organization [...] Team Providers + +------+ + | Care Brushing Machine Operator Name | Role | Phone | + +------+ + PCP | Unavailable | + +------+ + Encounter Details +--------+ + + + + | Date | Type | Department | Care Team | Description | +--------+ + + + + | 06/29/ | Documentati | Orthopaedics at | Oscar Mcclellan MD | | | 2008 | on | [facility] [address] | [address] | | | | | [place] Mailcode: CH12A | [place], | | | | | [facility] | [place] [address] | | | | | and Healing, | [phone] | | | | | | | | | | | Floor [place], [place] | | | | | | [address] | | | | | | [phone] | | | +--------+ + + + [...]
--- OUTSIDE RECORDS SUMMARY | ~2019-04-20 | XMS | Encounter Summary ---
Demographics + + + | Address | [address] | | | [place] [address] | + + + | Home Phone [...] Organization | [facility] | | | and [...] Team Providers + +------+ + | Care Line Camera Operator Name | Role | Phone | + +------+ + | Dominic Carlin MD | PCP | | + +------+ + Reason for Visit +---------+ + | Reason | Comments | +---------+ + | Post Op | update | +---------+ + Encounter Details +--------+ + + + [...] | | [address] | [place] [address] | | | | | [place] | [phone] | | | | | [address] | | | | | | [phone] | | | +--------+ + + + [...]
--- OUTSIDE RECORDS SUMMARY | ~2019-04-20 | XMS | Encounter Summary ---
Demographics + + + | Address | [address] | | | [place] [address] | + + + | Home Phone | | + + + | Preferred Language | Unknown | + + + | Marital Status | Single | + + + | Catholic Affiliation | 1041 | + + + | Race | Unknown | + + + | Ethnic Group | Unknown | + + + Author + + + | Author | [facility] | | | and [place] | + + + | Organization | [facility] | | | and [place] [...] Team Providers + +------+ + | Care International Trade Analyst Name | Role | Phone | [...] [place] | | | | | | [address] | | | | | | [phone] | | | +--------+ + + + [...]
--- OUTSIDE RECORDS SUMMARY | ~2019-04-20 | XMS | Encounter Summary ---
Demographics + + + | Address | [address] | | | [place] [address] | + + + | Home Phone | | + + + | Preferred Language | Unknown | + + + | Marital Status | Single | + + + | Caodaism Affiliation | Unknown | + + + | Race | or | + + + | Ethnic Group | Not or | + + + Author + + + | Author | [facility] | + + + | Organization | [facility] | + + + | Address | Unknown | + + + | Phone | Unavailable | + + + Support + + +---------+ + | Name | Relationship | Address | Phone | + + +---------+ + | Gautam Ray | ECON | Unknown | | + + +---------+ + Care Team Providers + +------+ + | Care Mobile Solutions Architect Name | Role | Phone | [...] | Orthopedics | Diagnoses | Non-[facility] | [place], | | | | | LT SHOULDER | Epic Dept | MD Jaswant | | | | | PAIN | | [address] | | | | | | | [address] | | | | | | | [place], | | | | | | | [place] | | | | | | | [address] | | | | | | | Phone: | | | | | | | [phone] | | | | | | | Fax: | | | | | | | [phone] | +--------+--------+ + + + + Encounter Details +--------+---------+ + + + | Date | Type | Department | Care Team | Description | +--------+---------+ + + + | 03/05/ | Office | Orthopaedics at | Jaswant Angeles MD | Shoulder Pain; | | 2007 | Visit | [facility] [address] | [address] | Injury of Axillary | | | | Ave Mailcode: CH[address]A | [address] | Nerve; Unspecified | | | | [facility] | [place], [place] | Disorders of Bursae | | | | and Healing, | [address] | and Tendons in | | | | [facility] | [phone] | Shoulder Region | | | | Floor [place], [place] | | | | | | [address] | | | | | | [phone] | | | +--------+---------+ + + + [...] this encounter Progress Notes Jaswant Angeles - 04/01/2008 8:49 PM PSTThis patient returns for follow-up of his shoulder pain and dysfunction. 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 MRI scans and full nerve conducti on studies to evaluate this as well as a rotator cuff tear were ordered. The patient was as ked to return to clinic for re-assessment once the investigation discussed is completed.Elec tronically signed by Jaswant Angeles at 04/01/2008 8:49 PM PSTdocumented in this encounter Plan of Treatment + + +--------+ + + | Name | Type | Priori | Associated Diagnoses | Order Schedule | | | | ty | | | + + +--------+ + + | MRI BRACHIAL PLEX LT | Imaging | Routin | Shoulder Pain | Ordered: 03/05/2008 | | WO CONT | | e | Injury of Axillary | | | | | | Nerve | | + + +--------+ + + | MRI SHOULDER LT WO | Imaging | Routin | Shoulder Pain | Ordered: 03/05/2008 | | CONT | | e | Injury of Axillary | | | | | | Nerve | | + + +--------+ + + | EMG/NERVE CONDUCTION | Procedures | Routin | Shoulder Pain | Ordered: 03/05/2008 | | STUDIES - ORTHO | | e | Injury of Axillary | | | | | | Nerve | | + + +--------+ + + documented as of this encounter Procedures + +--------+ + + + | Procedure Name | Priori | Date/Time | Associated Diagnosis | Comments | | | ty | | | | + +--------+ + + + | MRI SPINE CERVICAL | Routin | 04/19/2008 | Shoulder Pain | Results for this | | WO CONTRAST | e | 7:35 AM | Injury of Axillary | procedure are in the | | | | PST | Nerve | results section. | + +--------+ + + + | RADIOLOGY | | 03/05/2008 | | Results for this | | | | 11:36 AM | | procedure are in the | | | | PDT | | results section. | + +--------+ + + + documented in this encounter Results MRI SPINE CERVICAL WO CONTRAST (04/19/2008 7:35 AM PST) + + + + + + | Component | Value | Ref Range | Performed | Pathologist | | | | | At | Signature | + + + + + + | MR CERVICAL | Examination: MRI of the | | | | | SPINE WO | cervical spine without | | | | | CONTRAST | contrast.Comparison: | | | | | | None available.History: | | | | | | Neck pain.Technique: | | | | | | Using a 3.0 Shireen | | | | | | magnet, multiple routine | | | | | | MR images wereobtained | | | | | | through the cervical | | | | | | spine without the use of | | | | | | contrast.Findings: | | | | | | There is mild | | | | | | retrolisthesis of C4 on | | | | | | C5. | | | | | | Edematousdegenerative | | | | | | endplate changes are | | | | | | seen from C4 through C7. | | | | | | A smallamount of | | | | | | hyperintense T2 signal | | | | | | is seen within the cord | | | | | | justinferior to the | | | | | | C4-C5 disk space. The | | | | | | craniocervical junction | | | | | | ismaintained. The | | | | | | visualized portions of | | | | | | the posterior fossa | | | | | | arenormal.C2-C3: | | | | | | Degenerative endplate | | | | | | and articular facet | | | | | | changes withligamentum | | | | | | flavum hypertrophy and a | | | | | | congenitally small | | | | | | canal withoutneural | | | | | | foraminal | | | | | | narrowing.C3-C4: | | | | | | Degenerative endplate | | | | | | and articular facet | | | | | | changes with leftgreater | | | | | | than right uncal | | | | | | vertebral joint | | | | | | hypertrophy and | | | | | | acongenitally small | | | | | | canal is causing left | | | | | | greater than right | | | | | | neuralforaminal | | | | | | narrowing.C4-C5: | | | | | | Degenerative endplate | | | | | | and articular facet | | | | | | changes with a | | | | | | smallbroad-based | | | | | | posterior disk | | | | | | osteophyte complex and | | | | | | ligamentum | | | | | | flavumhypertrophy with | | | | | | right uncal vertebral | | | | | | joint hypertrophy is | | | | | | causingflattening of the | | | | | | anterior cervical cord | | | | | | and moderate to | | | | | | severespinal canal | | | | | | stenosis with left | | | | | | greater than right | | | | | | neural | | | | | | foraminalnarrowing.C5-C6 | | | | | | : Degenerative endplate | | | | | | and articular facet | | | | | | changes with leftgreater | | | | | | than right uncal | | | | | | vertebral joint | | | | | | hypertrophy and a | | | | | | smallbroad-based | | | | | | posterior disk | | | | | | osteophyte complex and a | | | | | | congenitallysmall canal | | | | | | and is causing left | | | | | | greater than right | | | | | | neural | | | | | | foraminalnarrowing.C6-C7 | | | | | | : Degenerative endplate | | | | | | and in articular facet | | | | | | changes withbilateral | | | | | | uncal vertebral joint | | | | | | hypertrophy with a small | | | | | | broad-basedposterior | | | | | | disk osteophyte complex | | | | | | and a congenitally small | | | | | | canal iscausing | | | | | | bilateral neural | | | | | | foraminal | | | | | | narrowing.C7-T1: | | | | | | Degenerative endplate | | | | | | and articular facet | | | | | | changes withoutspinal | | | | | | canal stenosis or neural | | | | | | foraminal | | | | | | narrowing.Impression:1. | | | | | | Multilevel | | | | | | degenerative changes of | | | | | | the cervical spine are | | | | | | presentwhich are worst | | | | | | at C4-C5 where there is | | | | | | moderate to severe | | | | | | spinalcanal stenosis and | | | | | | a small amount of cord | | | | | | signal in the cervical | | | | | | cordjust inferior to the | | | | | | stenosis. The spinal | | | | | | canal | | | | | | appearscongenitally | | | | | | small which contributes | | | | | | to mild narrowing | | | | | | throughout.2. Diffuse | | | | | | left greater than right | | | | | | neural foraminal | | | | | | narrowing ispresent | | | | | | which is largely | | | | | | secondary to left-sided | | | | | | greater than rightsided | | | | | | uncal vertebral joint | | | | | | hypertrophy.I have | | | | | | personally viewed this | | | | | | procedure/exam and | | | | | | reviewed this | | | | | | report.Author: | | | | | | Kam RUIZReviewer | | | | | | : RINKU | | | | | | Kam NOELSTATUS FINAL | | | | | | / Dr. DOBBS | | | | | | VINCENZO PENDING | | | | | | FINAL APPROVAL / | | | | | | JEROME ADAMESATUS | | | | | | PRELIMINARY - UNSIGNED / | | | | | | Dr. JEROME BURDICK | | | | + + + + + + + + | Specimen | + + | | + + + +---------+ + + | Performing | Address | City/State/Zipcode | Phone Number | | Organization | | | | + +---------+ + + | [facility] DEPARTMENT OF | | | | | RADIOLOGY | | | | + +---------+ + + RADIOLOGY (03/05/2008 11:36 AM PDT) + + + | Narrative | Performed At | + + + | | | + + + + + | Procedure Note | + + | Ke Kapadia - 03/05/2008 11:36 AM PDT | + + documented in this encounter Visit Diagnoses + + | Diagnosis | + + | Shoulder pain Pain in joint, shoulder region | + + | Injury of axillary nerve Injury to axillary nerve | + + | Disorders of bursae and tendons in shoulder region, unspecified | + + documented in this encounter"
--- OUTSIDE RECORDS SUMMARY | ~2019-04-20 | XMS | Encounter Summary ---
Demographics + + + | Address | [address] | | | [place] [address] | + + + | Home Phone [...] + + + | Author | [facility] | | | and [place] | + + + | Organization | [facility] | [...] Providers + +------+ + | Care Director Hematology Name | Role | Phone | + [...] | | | [place] | [place] [address] | | | | | [address] | [phone] | | | | | [phone] | | | +--------+ + + + [...] [address] | [place] | [phone] | | [facility] | | [address] | | | - IMAGING | | | | + + + + + documented in this encounter Visit Diagnoses + + | Diagnosis | + + | S/P cervical spinal fusion - Primary Arthrodesis status | + + documented in this encounter"
--- OUTSIDE RECORDS SUMMARY | ~2019-04-20 | XMS | Clinical Summary ---
Demographics + + + | Address | [address] | | | [place] [address] | + + + | Home Phone | | + + + | Preferred Language | Unknown | + + + | Marital Status | Single | + + + | Zoroastrianism Affiliation | 1041 | + + + | Race | Unknown | + + + | Ethnic Group | Unknown | + + + Author + + + | Author | [facility] (Historical as of | | | 12-31-18) | + + + | Organization | [facility] (Historical as of | | | 12-31-18) | + + + | Address | Unknown | + + + | Phone | Unavailable | + + + Support + + +---------+ + | Name | Relationship | Address | Phone | + + +---------+ + | Message,Detailed | ECON | Unknown | | + + +---------+ + | Guy Osman | ECON | Unknown | Unavailable | + + +---------+ + Care Team Providers + +------+ + | Care Web User Experience Strategist Name | Role | Phone | + +------+ + | Bentley Case MD | PP | | + +------+ + Allergies No Known Allergies Current Medications + + +--------+---------+------+------+-------+ | Prescription | Sig. | Disp. | Refills | Star | End | Statu | | | | | | t | Date | s | | | | | | Date | | | + + +--------+---------+------+------+-------+ | lisinopril | Take 10 mg by mouth | | | | | Activ | | (ZESTRIL) 10 MG | daily. | | | | | e | | tablet | | | | | | | + + +--------+---------+------+------+-------+ | atorvastatin | Take 80 mg by mouth | | | | | Activ | | (LIPITOR) 80 MG | daily. | | | | | e | | tablet | | | | | | | + + +--------+---------+------+------+-------+ | aspirin 81 MG | Take 81 mg by mouth | | | | | Activ | | tablet | daily. | | | | | e | + + +--------+---------+------+------+-------+ | amLODIPine | Take 10 mg by mouth | | | | | Activ | | (NORVASC) 10 MG | daily. | | | | | e | | tablet | | | | | | | + + +--------+---------+------+------+-------+ | clopidogrel | Take 1 tablet by | 30 | 3 | 08/0 | | Activ | | (PLAVIX) 75 MG | mouth daily. 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 | + + + | Visual hallucinations | 12/24/2015 | + + + | Occipital stroke | 12/24/2015 | + + + Family History + + +------+ + | Medical History | Relation | Name | Comments | + + +------+ + | Diabetes type II | Father | | | + + +------+ + + +------+ + + | Relation | Name | Status | Comments | + +------+ + + | Father [...] + +---------+ + | Alcohol Use | Drinks/We | oz/Week | Comments | | | ek | | | + + +---------+ + | No | | | | + + +---------+ + + + + | Sex Assigned at | Date Recorded | | | | + + + | Not on file | | + + + Last Filed Vital Signs + + + + | Vital Sign | Reading | Time Taken | + + + + | Blood Pressure | 140/75 | 12/17/2015 10:14 AM PDT | + + + + | Pulse | 65 | 12/17/2015 10:14 AM PDT | + + + + | Temperature | - | - | + + + + | Respiratory Rate | - | - | + + + + | Oxygen Saturation | - | - | + + + + | Inhaled Oxygen | - | - | | Concentration | | | + + + + | Weight | 86.2 kg (190 lb) | 12/17/2015 10:14 AM PDT | + + + + | Height | 170.2 cm (5' 7") | 12/17/2015 10:14 AM PDT | + + + + | Body Mass Index | 29.76 | 12/17/2015 10:14 AM PDT | + + + + Plan of Treatment + + + + + | Health Maintenance | Due Date | Last Done | Comments | + + + + + | Vaccine: | | | | | Dtap/Tdap/Td (1 - | 3 | | | | Tdap) | | | | + + + + + | Colon Cancer | | | | | Screening | 4 | | | | (Colonoscopy) | | | | + + + + + | Vaccine: Zoster (1 | | | | | of 2) | 4 | | | + + + + + | Vaccine: | | | | | Pneumococcal 65+ | 9 | | | | Low/Medium Risk (1 | | | | | of 2 - PCV13) | | | | + + + + + | Vaccine: Influenza | | | | | (#1) | 9 | | | + + + + + Results Not on filefrom Last 3 Months Insurance + +--------+ +------+ + + | Payer | Benefi | Subscriber | Type | Phone | Address | | | t Plan | ID | | | | | | / | | | | | | | Group | | | | | + +--------+ +------+ + + | /[facility] | YELLOW | [id number] | | | | | PLANS | [place] | | | | | + +--------+ +------+ + + | MEDICARE | MEDICA | [id number] | | | [address] | | | RE | | | | [place] [address] | | | IP-OP | | | | | + +--------+ +------+ + + | [employer]ET[employer] | VETERA | [id number] | | [phone] [employer]EE [employer] [id number] | | ADMINISTRATION | [place] | | | [phone] | | | [address]MINI | | | | [address] [place] | | | [place] | | | | [phone] | | | ON | | | | | + +--------+ +------+ + + + +--------+ +--------+ + + | Guarantor Name | Accoun | Relation to | Date | Phone | Billing Address | | | t Type | Patient | of | | | | | | | | | | + +--------+ +--------+ + + | ISA OSMAN | Person | Self | [birth year] | Home: | [address] | | | al/Fam | | 1945 | +- | [place], [place] | | | carolyn | | | [address] | [address] | + +--------+ +--------+ + + | ISA OSMAN | Vetera | Self | [birth year] | Home: | [address] | | | ns | | 1945 | +- | [place] | | | Admini | | | [address] | [address] | | | strati | | | | | | | on | | | | | + +--------+ +--------+ + +
--- OUTSIDE RECORDS SUMMARY | ~2019-04-20 | XMS | Encounter Summary ---
Demographics + + + | Address | [address] | | | [place] [address] | + + + | Home Phone [...] | Organization | [facility] | | | and [place] [...] Team Providers + +------+ + | Care Title Inspector Name | Role | Phone | [...] | | | | | | | MD | | | | | | | [...] + + | 07/26/ | Hospital | [facility] | Wes Melvin MD | Other myelopathy | | 2014 | Encounter | MED CTR XRAY [address] | ([facility]) | | | | [address] | [place] [address] | | | | | [place] [address] | [phone] | | | | | [phone] | | | +--------+ + + + [...] | + +--------+ + + + | EMILY CHAND STATS NO | Routin | 07/26/2014 | Other myelopathy | Results for this | | CHARGE | e | 1:42 PM | (HCC) | procedure are in the | | | | PDT | | results section. | + +--------+ + + + documented in this encounter Results EMILY Trammell Stats No Charge (07/26/2014 1:42 PM PDT) + + | Specimen | + + | | + + + + + | Narrative | Performed At | + + + | No Radiologist interpretation, please see Chart Review. | [facility] | | | [facility] | | | [facility] | | | - IMAGING | + + + + + + + + | Performing | Address | City/State/Zipcode | Phone Number | | Organization | | | | + + + + + | [facility] | [address] | [place] | [phone] | | [facility] | | [address] | | | - IMAGING | | | | + + + + + documented in this encounter Visit Diagnoses + + | Diagnosis | + + | Other myelopathy | + + documented in this encounter"
--- OUTSIDE RECORDS SUMMARY | ~2019-04-20 | XMS | Encounter Summary ---
Demographics + + + | Address | [address] | | | [place] [address] | + + + | Home Phone | | + + + | Preferred Language | Unknown | + + + | Marital Status | Single | + + + | Confucianist Affiliation | Unknown | + + + | Race | or | + + + | Ethnic Group | Not or | + + + Author + + + | Author | [facility] | + + + | Organization | [facility] | + + + | Address | Unknown | + + + | Phone | Unavailable | + + + Support + + +---------+ + | Name | Relationship | Address | Phone | + + +---------+ + | Gautam Ray | ECON | Unknown | | + + +---------+ + Care Team Providers + +------+ + | Care Box Press Operator Name | Role | Phone | [...] [address] | | | | | | [place], [place] | | | | | | [address] | | | +--------+ + + + [...]
--- OUTSIDE RECORDS SUMMARY | ~2019-04-20 | XMS | Encounter Summary ---
Demographics + + + | Address | [address] | | | [place] [address] | + + + | Home Phone [...] | Organization | [facility] | | | and [place] [...] Team Providers + +------+ + | Care Toddler Guide Name | Role | Phone | + [...] | | [address] | [place] [address] | | | | | [place] | [phone] | | | | | [address] | | | | | | [phone] | | | +--------+ + + + [...]
--- OUTSIDE RECORDS SUMMARY | ~2019-04-20 | XMS | Encounter Summary ---
Demographics + + + | Address | [address] | | | [place] [address] | + + + | Home Phone [...] + | Organization | [facility] | | | and [place] [...] Team Providers + +------+ + | Care Child Care Attendant School Name | Role | Phone | + [...] | | | | | | | [place] | | | | | | | [...] + + | 07/26/ | Anesthesia | [facility] | Jaswant Calix MD | | | 2015 | Event | MED CTR OR INTRA OP | [address] | | | | | [address] | [place] | | | | | [place] | [address] | | | | | [address] | [phone] | | | | | [phone] | | | +--------+ + + + [...] | 07/27/14; 1117 | RN | [facility] | +--------+ + + + documented in [...]
--- OUTSIDE RECORDS SUMMARY | ~2019-04-20 | XMS | Encounter Summary ---
Demographics + + + | Address | [address] | | | [place] [address] | + + + | Home Phone [...] | [facility] | | | and [...] Team Providers + +------+ + | Care Orthotic Finish Grinding Technician Name | Role | Phone | [...] | MD [address] | [address] | | | | | Procedures | [address] | [place], | | | | | MRI Lumbar | [place], | [place] | | | | | Spine wo | [place] [address] | [address] | | | | | Contrast | Phone: | Phone: | | | | | | [phone] | [phone] | | | | | | Fax: | Fax: | | | | | | [phone] | [phone] | +--------+--------+ + + + + Reason [...] | MD [address] | [address] | | | | | Procedures | [address] | [place], | | | | | MRI Lumbar | [place], | [place] | | | | | Spine wo | [place] [address] | [address] | | | | | Contrast | Phone: | Phone: | | | | | | [phone] | [phone] | | | | | | Fax: | Fax: | | | | | | [phone] | [phone] | +--------+--------+ + + + + Encounter Details +--------+ + + + + | Date | Type | Department | Care Team | Description | +--------+ + + + + | 01/30/ | Hospital | [facility] | Wes Melvin MD | Back pain | | 2013 | Encounter | MED CTR MRI [address] | [address] | | | | | [place], | [place] [address] | | | | | [place] [address] | [phone] | | | | | [phone] | | | +--------+ + + + [...] + | MISCELLANEOUS LAB | | | [phone] | + +---------+ + + | MISCELANIOUS LAB | | | [phone] | + +---------+ + + documented in this encounter Visit Diagnoses + + | Diagnosis | + + | Back pain Backache, unspecified | + + documented in this encounter"
--- OUTSIDE RECORDS SUMMARY | ~2019-04-20 | XMS | Encounter Summary ---
Demographics + + + | Address | [address] | | | [place] [address] | + + + | Home Phone | | + + + | Preferred Language | Unknown | + + + | Marital Status | Single | + + + | Voodoo Affiliation | 1041 | + + + | Race | Unknown | + + + | Ethnic Group | Unknown | + + + Author + + + | Author | [facility] | | | and [place] | + + + | Organization | [facility] | | | and [...] Team Providers + +------+ + | Care Beef Cattle Farmer Name | Role | Phone | + +------+ + | Dominic Carlin MD | PCP | | + +------+ + Encounter Details +--------+ + + + + | Date | Type | Department | Care Team | Description | +--------+ + + + + | 05/30/ | Orders Only | [facility] | Wes Mlevin MD | Cervical cord | | 2015 | | NEUROSURGERY [address] | [address] | myelomalacia (HCC) | | | | [address] | [place] [address] | (Primary Dx); | | | | [place] | [phone] | Cervical spondylosis | | | | [address] | | with myelopathy; | | | | [phone] | | Essential | | | | [...] [address] | [place] | [phone] | | [facility] | | [address] | | | - IMAGING | | [...] | Basophils | | K/uL | [facility] | | | | | | MEDICAL | | | | | | CENTER - | | | | | | LABORATORY | | + + + + + + + + | Specimen | + + | Blood | + + + + + + + | Performing | Address | City/State/[facility] | Phone Number | | Organization | | | | + + + + + | [facility] | [address] | [place] | [phone] | | [facility] | | [address] | | | - LABORATORY | | | | + + + + + | [facility] | [address] | [place] | | | [facility] | | [address] | | | - LABORATORY | | [...] mL/min/1.73m2 | [facility] | | | [facility] | RATE,ESTIMATED | | MEDICAL | | | | mL/min/1.69r0Xbhh than | | CENTER - | | [...] + | [facility] | [address] | [place], [place] | [phone] | | [facility] | | [address] | | | - LABORATORY | | | | + + + + + | [facility] | [address] | [place], [place] | | | [facility] | | [address] | | | - LABORATORY | | [...]
--- OUTSIDE RECORDS SUMMARY | ~2019-04-20 | XMS | Encounter Summary ---
Demographics + + + | Address | [address] | | | [place] [address] | + + + | Home Phone [...] Organization | [facility] | | | and [...] Team Providers + +------+ + | Care Saturator Name | Role | Phone | + [...] | MD Valery [address] | [address] | | | | | spondylosis | [address] | [place], | | | | | with | [place], | [place] | | | | | myelopathy | [place] [address] | [address] | | | | | Cervical | Phone: | Phone: | | | | | cord | [phone] | [phone] | | | | | myelomalacia | Fax: | Fax: | | | | | (HCC) | [phone] | [phone] | | | | | Degenerative | [...] | | | | | with | [facility] | [place] | | | | | myelopathy | [place] [address] | [address] | | | | | Cervical | Phone: | Phone: | | | | | cord | [phone] | [phone] | | | | | myelomalacia | Fax: | Fax: | | | | | ([facility]) | [phone] | [phone] | | | | | Degenerative | [...] + + | 01/30/ | Hospital | [facility] | Wes Melvin MD | Cervical spondylosis | | 2013 | Encounter | MED CTR MRI [address] | [address] | with myelopathy; | | | | [place], | [place] [address] | Cervical cord | | | | [place] [address] | [phone] | myelomalacia ([facility]); | | | | [phone] | | Degenerative disc | | | [...] | in the cervical cord at the Y6ooflb.2. Multilevel degenerative disc and spondylitic | | [...] + | MISCELLANEOUS LAB | | | [phone] | + +---------+ + + | MISCELANIOUS LAB | | | [phone] | + +---------+ + + documented in this encounter Visit Diagnoses + + | Diagnosis | + + | Cervical spondylosis with myelopathy | + + | Cervical cord myelomalacia (HCC) Other myelopathy | + + | Degenerative disc disease, cervical Degeneration of cervical intervertebral disc | + + documented in this encounter"
--- OUTSIDE RECORDS SUMMARY | ~2019-04-20 | XMS | Encounter Summary ---
Demographics + + + | Address | [address] | | | [place] [address] | + + + | Home Phone | | + + + | Preferred Language | Unknown | + + + | Marital Status | Single | + + + | Mormon Affiliation | 1041 | + + + | Race | Unknown | + + + | Ethnic Group | Unknown | + + + Author + + + | Author | [facility] | | | and [place] | + + + | Organization | [facility] | | | and [place] | [...] Team Providers + +------+ + | Care Medical Grade Shoemaker Name | Role | Phone | + [...] | MD Valery [address] | [address] | | | | | Procedures | [address] | [place], | | | | | MRI Lumbar | [place], | [place] | | | | | [place] | [place] [address] | [address] | | | | | Contrast | Phone: | Phone: | | | | | | [phone] | [phone] | | | | | | Fax: | Fax: | | | | | | [phone] | [phone] | +--------+--------+ + + + + Diagnostic/Screening (Routine) +--------+--------+ + + + + | Status | Reason | Specialty | Diagnoses / | Referred By | Referred To | | | | | Procedures | Contact | Contact | +--------+--------+ + + + + | Closed | | Radiology | Diagnoses | Wes Melvin | [facility] | | | | | Cervical | MD [address]ery [address] | [address] | | | | | spondylosis | [address] | [place], | | | | | with | [facility], | [place] | | | | | myelopathy | [place] [address] | [address] | | | | | Cervical | Phone: | Phone: | | | | | cord | [phone] | [phone] | | | | | myelomalacia | Fax: | Fax: | | | | | (HCC) | [phone] | [phone] | | | | | Degenerative | [...] | | | | | cervical | [place], | [place], [place] | | | | | region | [place] | [address] | | | | | Cervical | [address] | Phone: | | | | | nerve root | Phone: | [phone] | | | | | impingement | [phone] | Fax: | | | | | SPINAL | Fax: | [phone] | | | | | STENOSIS C4, | [phone] | | | | | | WITH NERVE | | | | | | | IMPINGEMENT | | | | | | | OF C3-C6 | | | | | | | Procedures | | | | | | | [place] OFFICE | | | | | | [...] | | [address] | [place] [address] | (Primary Dx); | | | | [place] | [phone] | Cervical cord | | | | [address] | | myelomalacia ([facility]); | | | | [phone] | | Degenerative disc | | | [...] research this procedure more by going to: [email or web address] Click the Treatment Options link on the left column. Then, look for Anterior Cervical Discectomy and Fusion (ACDF). documented in this encounter Progress Notes Wes Melvin MD - 01/19/2014 9:08 AM PDTFormatting of this note might be different from t he original. 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 CRANIAL NERVES: II: Acuity is intact. [...] Intrinsics 5 4 Ulnar Intrinsics 5 4 Group Contract Analyst Strength 5 4 Hip Flexion 4 [...] + | MISCELLANEOUS LAB | | | [phone] | + +---------+ + + | MISCELANIOUS LAB | | | [phone] | + +---------+ + + MRI Cervical [...] | in the cervical cord at the Z7rzymr.2. Multilevel degenerative disc and spondylitic | | [...] + | MISCELLANEOUS LAB | | | [phone] | + +---------+ + + | MISCELANIOUS LAB | | | [phone] | + +---------+ + + documented in [...]
--- OUTSIDE RECORDS SUMMARY | ~2019-04-20 | XMS | Encounter Summary ---
Demographics + + + | Address | [address] | | | [place] [address] | + + + | Home Phone | | + + + | Preferred Language | Unknown | + + + | Marital Status | Single | + + + | Jew Affiliation | Unknown | + + + | Race | or | + + + | Ethnic Group | Not or | + + + Author + + + | Author | [facility] | + + + | Organization | [facility] | + + + | Address | Unknown | + + + | Phone | Unavailable | + + + Support + + +---------+ + | Name | Relationship | Address | Phone | + + +---------+ + | Gautam Ray | ECON | Unknown | | + + +---------+ + Care Team Providers + +------+ + | Care Architectural Draftsperson Name | Role | Phone | + [...] [address] | [place], | (EMG of left | | | | [address], [address] | [place] [address] | shoulder) | | | | [address], | [phone] | | | | | [address] | | | | | | [place], [place] | | | | | | [address] | | | | | | [phone] | | | +--------+ + + + [...] and waveforms have b een scanned into Transave. The summary is as follows: Motor Nerve [...] | + + +--------+ + + | SD NERVE CONDUCTION | Procedures | Routin | Cervicalgia | Ordered: 02/20/2008 | | TEST,MOTOR | | e | Cervical Radiculitis | | | | | | Pain in Joint, | | | | | | Shoulder Region | | + + +--------+ + + | SD NERVE | Procedures | Routin | Cervicalgia | Ordered: 02/20/2008 | | CONDUCTION,EA | | e | Cervical Radiculitis | | | NERVE,MOTOR,SENSORY | | | Pain in Joint, | | | | | | Shoulder Region | | + + +--------+ + + | SD MUSCLE TEST, ONE | Procedures | Routin [...]
--- OUTSIDE RECORDS SUMMARY | ~2019-04-20 | XMS | Encounter Summary ---
Demographics + + + | Address | [address] | | | [place] [address] | + + + | Home Phone | | + + + | Preferred Language | Unknown | + + + | Marital Status | Single | + + + | Rastafarian Affiliation | 1041 | + + + | Race | Unknown | + + + | Ethnic Group | Unknown | + + + Author + + + | Author | [facility] | | | and [place] | + + + | Organization | [facility] | | | and [...] Team Providers + +------+ + | Care Wire Stitcher Name | Role | Phone | + [...] | | [address] | [place] [address] | | | | | [place] | [phone] | | | | | [address] | | | | | | [phone] | | | +--------+ + + + [...]
--- OUTSIDE RECORDS SUMMARY | ~2019-04-20 | XMS | Encounter Summary ---
Demographics + + + | Address | [address] | | | [place] [address] | + + + | Home Phone | | + + + | Preferred Language | Unknown | + + + | Marital Status | Single | + + + | Sikh Affiliation | Unknown | + + + | Race | or | + + + | Ethnic Group | Not or | + + + Author + + + | Author | [facility] | + + + | Organization | [facility] | + + + | Address | Unknown | + + + | Phone | Unavailable | + + + Support + + +---------+ + | Name | Relationship | Address | Phone | + + +---------+ + | Gautam Ray | ECON | Unknown | | + + +---------+ + Care Team Providers + +------+ + | Care Seasonal Delivery Driver Name | Role | Phone | [...] | in shoulder | Rd | Rd [place], | | | | | region, | [place], [place] | [place] | | | | | unspecified | [address] | [address] | | | | | Procedures | Phone: | Phone: | | | | | CONSULT TO | [phone] | [phone] | | | | | ORTHOPEDICS | Fax: | Fax: | | | | | AND | [phone] | [phone] | | | | | REHABILITATI | [...] | 2008 | Visit | Center at [facility] [address] | [address] | Cervical | | | | [address] | [place], | Radiculopathy | | | | Mailcode: CH8N | [place] [address] | | | | | [place] for [facility] | [phone] | | | | | and Healing, | | | | | | Building | | | | | | Floor [place], [place] | | | | | | [address] | | | | | | [phone] | | | +--------+---------+ + + + [...]
--- OUTSIDE RECORDS SUMMARY | ~2019-04-20 | XMS | Encounter Summary ---
Demographics + + + | Address | [address] | | | [place] [address] | + + + | Home Phone [...] Organization | [facility] | | [...] Team Providers + +------+ + | Care Product Craftsman Name | Role | Phone | + [...] | | [address] | [place] [address] | | | | | [place] | [phone] | | | | | [address] | | | | | | [phone] | | | +--------+ + + + [...]
--- OUTSIDE RECORDS SUMMARY | ~2019-04-20 | XMS | Encounter Summary ---
Demographics + + + | Address | [address] | | | [place] [address] | + + + | Home Phone [...] + + + | Author | [facility] | | | and [place] | + + + | Organization | [facility] | | | and [place] [...] Team Providers + +------+ + | Care Drug Enforcement Agent Name | Role | Phone | + +------+ + | Dominic Carlin MD | PCP | | + +------+ + Encounter Details +--------+ + + + + | Date | Type | Department | Care Team | Description | +--------+ + + + + | 07/27/ | Hospital | [facility] | Ernesto Thomas, | | | 2014 | Encounter | MED CTR ACUTE | PT [address] | | | | | PHYSICAL THERAPY | [place] | | | | | [address] | [address] | | | | | [place] [address] | | | | | | [phone] | | | +--------+ + + + [...]
--- OUTSIDE RECORDS SUMMARY | ~2019-04-20 | XMS | Encounter Summary ---
Demographics + + + | Address | [address] | | | [place] [address] | + + + | Home Phone [...] + | Organization | [facility] | [...] Providers + +------+ + | Care Director Education Name | Role | Phone | [...] | | [address] | [place] [address] | | | | | [address] | [address] | | | | | [place], [place] | [place] [address] | | | | | [address] | [phone] | | | | | [phone] | | | +--------+ + + + [...] | | | Grade 1 diastolic abnormality, Bapchule visually estimates LVEF 65-70%. | | | [...] Grade 1 | | | diastolic abnormality, [place] visually estimates LVEF 65-70%. Mild | | [...] pressures of 0-5mmHg. MEASUREMENTS | | | Factory Clerk: DEMARCO Authenticated by: Allen Grant | | | DO Report Date/Time: -- [id number] | | + + + + + | Procedure Note | + + | Eldon, Rad Conversion - 01/05/2019 8:26 PM PDT Patient Name: Yonny Bell of | | : 1945 Performing Physician: Allen Grant | | DO INDICATIONS c | | va CONCLUSIONS 1. See Dictation. 2. Mild concentric LVH, systolic function | | NML, Grade 1 diastolic abnormality, [place] visually estimates LVEF 65-70%. Mild LAE. | [...] venous pressures of 0-5mmHg. | | MEASUREMENTS Factory Clerk: HERLINDAuthenticated by: Allen Morris | | Date/Time: -- [id number] IMPRESSION: 1. See Dictation. 2. Mild concentric | | LVH, systolic function NML, Grade 1 diastolic abnormality, [place] visually estimates | | LVEF 65-70%. Mild [...] | |MEASUREMENTS | | | | | |Factory Clerk: | |Authenticated by: Allen Grant DO | |Report Date/Time: -- [id number] | | | |IMPRESSION: | |1. See Dictation. 2. Mild concentric LVH, systolic function NML, Grade 1 diastolic abnorma lity, [place] visually estimates LVEF 65-70%. Mild LAE. RA [...]
--- OUTSIDE RECORDS SUMMARY | ~2019-04-20 | XMS | Encounter Summary ---
Demographics + + + | Address | [address] | | | [place] [address] | + + + | Home Phone [...] | Organization | [facility] | | | and [...] Providers + +------+ + | Care Manager Export Name | Role | Phone | + +------+ + | Dominic Carlin MD | PCP | | + +------+ + Encounter Details +--------+ + + + + | Date | Type | Department | Care Team | Description | +--------+ + + + + | 07/11/ | Hospital | [facility] | Wes Melvin MD | | | 2015 | Encounter | MED CTR LABORATORY | [address] | | | | | [address] | [place] [address] | | | | | [place] | [phone] | | | | | [address] | | | | | | [phone] | | | +--------+ + + + [...]
--- OUTSIDE RECORDS SUMMARY | ~2019-04-20 | XMS | Encounter Summary ---
Demographics + + + | Address | [address] | | | [place] [address] | + + + | Home Phone | | + + + | Preferred Language | Unknown | + + + | Marital Status | Single | + + + | Pentecostal Affiliation | 1041 | + + + | Race | Unknown | + + + | Ethnic Group | Unknown | + + + Author + + + | Author | [facility] | | | and [place] | + + + | Organization | [facility] | | | and [...] Team Providers + +------+ + | Care Skiver Box Toe Name | Role | Phone | + [...] | | [address] | [place] [address] | | | | | [place] | [phone] | | | | | [address] | | | | | | [phone] | | | +--------+ + + + [...]
--- OUTSIDE RECORDS SUMMARY | ~2019-04-20 | XMS | Encounter Summary ---
Demographics + + + | Address | [address] | | | [place] [address] | + + + | Home Phone [...] | Organization | [facility] | | | and [place] [...] Team Providers + +------+ + | Care Object Oriented Developer Name | Role | Phone | [...] + + | 07/11/ | Office | [facility] | Haroldo King | Cervical spondylosis | | 2015 | Visit | NEUROSURGERY [address] | [address] | with myelopathy | | | | [address] | [address] | (Primary Dx); | | | | [place], [place] | [place] [address] | Cervical cord | | | | [address] | [phone] | myelomalacia (HCC); | | | | [phone] | | Degenerative disc | | | [...] differen t from the original. 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 CRANIAL NERVES: II: Acuity is intact. [...] Intrinsics 5 4 Ulnar Intrinsics 5 4 Cooking Chef Strength 5 4 Hip Flexion 4 4 [...] surgery at both sites. ELECTRONICALLY SIGNED BY: IGNO Ponce, 07/11/2014 9:18 documented in th is [...]
--- OUTSIDE RECORDS SUMMARY | ~2019-04-20 | XMS | Encounter Summary ---
Demographics + + + | Address | [address] | | | [place] [address] | + + + | Home Phone [...] Organization | [facility] | [...] Team Providers + +------+ + | Care Psychiatric Orderly Name | Role | Phone | + +------+ + | Dominic Carlin MD | PCP | | + +------+ + Encounter Details +--------+ + + + + | Date | Type | Department | Care Team | Description | +--------+ + + + + | 07/11/ | [facility] | [facility] | Wes Melvin MD | Cervical cord | | 2015 | Encounter | MED CTR XRAY [address] | [address] | myelomalacia (HCC); | | | | [place] | [place] [address] | Cervical spondylosis | | | | [place] [address] | [phone] | with myelopathy; | | | | [phone] | | Essential | | | | [...] Heart size is at the | [facility] | | upper limits of normal. There [...] ST. | [address] | [place], [place] | [phone] | | [facility] | | [address] | | | - IMAGING | | [...]
--- OUTSIDE RECORDS SUMMARY | ~2019-04-20 | XMS | Clinical Summary ---
Demographics + + + | Address | [address] | | | [place] [address] | + + + | Home Phone | | + + + | Preferred Language | Unknown | + + + | Marital Status | Single | + + + | Sabianism Affiliation | 1041 | + + + | Race | Unknown | + + + | Ethnic Group | Unknown | + + + Author + + + | Author | [employer] (Historical as of | | | 12-31-18) | + + + | Organization | [facility] (Historical as of | | | 12-31-18) [...] Team Providers + +------+ + | Care Cable Hooker Name | Role | Phone | [...] | + +--------+ +------+ + + | /[facility] | YELLOW | [id number] | | | | | PLANS | HAWK | | | | | + +--------+ +------+ + + | MEDICARE | MEDICA | [id number] | | | [address] | | | RE | | | | [place] [address] | | | IP-OP | | | | | + +--------+ +------+ + + | VET[place]ANS | VETER[place] | [id number] | | [phone] | [employer] [address] | | ADMINISTRATION | [place] | | | [phone] | | | [address]MINI | | | | [address] [place] | | | [place] | | | | [address] | | | ON | | | [...] | Self | [birth year] | Home: | [address] | | | al/Fam | | 1945 | +- | [place], [place] | | | carolyn | | | [address] | [address] | + +--------+ +--------+ + + | ISA OSMAN | Vetera | Self | [birth year] | Home: | [address] | | | ns | | 1945 | +- | [place] | | | Admini | | | [address] | [address] | | | strati | | | | | | | on | | | | | + +--------+ +--------+ + +
--- OUTSIDE RECORDS SUMMARY | ~2019-04-20 | XMS | Encounter Summary ---
Demographics + + + | Address | [address] | | | [place] [address] | + + + | Home Phone | | + + + | Preferred Language | Unknown | + + + | Marital Status | Single | + + + | Advent Affiliation | 1041 | + + + | Race | Unknown | + + + | Ethnic Group | Unknown | + + + Author + + + | Author | [facility] | | | and [place] | + + + | Organization | [facility] [...] Team Providers + +------+ + | Care Memorial Counselor Name | Role | Phone | [...] [address] | | | | | [place], [place] | [place] [address] | | | | | [address] | [phone] | | | | | [phone] | | | +--------+--------+ + + + [...]
--- OUTSIDE RECORDS SUMMARY | ~2019-04-20 | XMS | Encounter Summary ---
Demographics + + + | Address | [address] | | | [place] [address] | + + + | Home Phone | | + + + | Preferred Language | Unknown | + + + | Marital Status | Single | + + + | Jewish Affiliation | 1041 | + + + | Race | Unknown | + + + | Ethnic Group | Unknown | + + + Author + + + | Author | [facility] | | | and [place] | + + + | Organization | [facility] | [...] Team Providers + +------+ + | Care Barge Worker Name | Role | Phone | + +------+ + | Dominic Carlin MD | PCP | | + +------+ + Encounter Details +--------+ + + + + | Date | Type | Department | Care Team | Description | +--------+ + + + + | 08/23/ | Hospital | [facility] | Haroldo King | S/P cervical spinal | | 2014 | Encounter | MED CTR XRAY [address] | [address] | fusion | | | | [place] | [address] | | | | | [place] [address] | [place] [address] | | | | | [phone] | | | | | | | [...] + | [facility] | [address] | [place] | [phone] | | [facility] | | [address] | | | - IMAGING | | | | + + + + + documented in this encounter Visit Diagnoses + + | Diagnosis | + + | S/P cervical spinal fusion Arthrodesis status | + + documented in this encounter"
--- OUTSIDE RECORDS SUMMARY | ~2019-04-20 | XMS | Encounter Summary ---
Demographics + + + | Address | [address] | | | [place] [address] | + + + | Home Phone | | + + + | Preferred Language | Unknown | + + + | Marital Status | Single | + + + | Yarsani Affiliation | 1041 | + + + | Race | Unknown | + + + | Ethnic Group | Unknown | + + + Author + + + | Author | [facility] | | | and [place] | + + + | Organization | [facility] | [...] Team Providers + +------+ + | Care Kindergarten Instructional Assistant Name | Role | Phone | [...] | [address] | [place] [address] | | | | | [place] | [phone] | | | | | [address] | | | | | | [phone] | | | +--------+ + + + [...]
--- OUTSIDE RECORDS SUMMARY | ~2019-04-20 | XMS | Clinical Summary ---
Demographics + + + | Address | [address] | | | [place] [address] | + + + | Home Phone | | + + + | Preferred Language | Unknown | + + + | Marital Status | Single | + + + | Uatsdin Affiliation | Unknown | + + + [...] Team Providers + +------+ + | Care Lacquer Pin Press Operator Name | Role | Phone | + +------+ + PCP | Unavailable | + +------+ + Source Comments JOSSUE is fully live on both [facility] Ambulatory and [facility] InPatient.[facility] Allergies No Known Allergies Medications + + [...] | | | + +--------+ +--------+-------+---------+--------+ | [facility] | ROMANIAN | xxxxxxxxx | Effect | | | [...] Person | Self | [birth year] | [address] | | | al/Cristi | | 1945 | [phone] | [place] | | | [place] | | | 4 (Home) | [address] | | | | | [phone] | | | | | | | 0 (Work) | | + +--------+ +--------+ + + | Buck Bell | Agency | Self | [birth year] | | [address] | | | | | 1945 | [phone] | [place] | | | | | | 4 (Home) | [address] | | | | | | [phone] | | | | | | | 0 (Work) | | + +--------+ +--------+ + + Advance Directives + + + + + | Type | Date Recorded | Patient | Explanation | | | | Ship Scaler | | + + + + + | Advance | | | | | Directives and | | | | | Living Will | | | | + + + + + | Power of | | | | | Traffic Attendant | | | | + + + + +
--- OUTSIDE RECORDS SUMMARY | ~2019-04-20 | XMS | Encounter Summary ---
Demographics + + + | Address | [address] | | | [place] [address] | + + + | Home Phone [...] + + + | Author | [facility] | | | and [place] | + + + | Organization | [facility] [...] Providers + +------+ + | Care Barrel Burner Name | Role | Phone | + +------+ + | Dominic Carlin MD | PCP | | + +------+ + Encounter Details +--------+ + + + + | Date | Type | Department | Care Team | Description | +--------+ + + + + | 07/11/ | [facility] | [facility] | Wes Melvin MD | Cervical cord | | 2015 | Encounter | MED CTR | [address] | myelomalacia (HCC); | | | | [facility] | [place] [address] | Cervical spondylosis | | | | [address] [place] | [phone] | with myelopathy; | | | | [place] [address] | | Essential | | | | [phone] | | hypertension; High | | | [...]
--- OUTSIDE RECORDS SUMMARY | ~2019-04-20 | XMS | Encounter Summary ---
Demographics + + + | Address | [address] | | | [place] [address] | + + + | Home Phone | | + + + | Preferred Language | Unknown | + + + | Marital Status | Single | + + + | Yazidism Affiliation | 1041 | + + + | Race | Unknown | + + + | Ethnic Group | Unknown | + + + Author + + + | Author | [facility] | | | and [place] | + + + | Organization | [facility] | | [...] Providers + +------+ + | Care Sales Porter Name | Role | Phone | + +------+ + | Dominic Carlin MD | PCP | | + +------+ + Encounter Details +--------+ + + + + | Date | Type | Department | Care Team | Description | +--------+ + + + + | 12/22/ | Orders Only | [facility] | Provider, | | | 2018 | | SYSTEM GENERIC OP | MD [address] | | | | | [address] | [place] | | | | | [address] [place], [place] | [place] [address] | | | | | [address] | | | | | | [phone] | | | +--------+ + + + [...]
--- OUTSIDE RECORDS SUMMARY | ~2019-04-20 | XMS | Encounter Summary ---
Demographics + + + | Address | [address] | | | [place] [address] | + + + | Home Phone [...] | [facility] [...] Team Providers + +------+ + | Care High Density Finishing Operator Name | Role | Phone | [...] | | [address] | [place] [address] | | | | | [place] | [phone] | | | | | [address] | | | | | | [phone] | | | +--------+ + + + [...]
--- OUTSIDE RECORDS SUMMARY | ~2019-04-20 | XMS | Encounter Summary ---
Demographics + + + | Address | [address] | | | [place] [address] | + + + | Home Phone | | + + + | Preferred Language | Unknown | + + + | Marital Status | Single | + + + | Spiritism Affiliation | Unknown | + + + | Race | or | + + + | Ethnic Group | Not or | + + + Author + + + | Author | [facility] | + + + | Organization | [...] Providers + +------+ + | Care Registered Nurse Maternal Child Name | Role | Phone | + [...] in shoulder | [address] | [place], | | | | | region, | [place], [place] | [place] | | | | | unspecified | [address] | [address] | | | | | Procedures | Phone: | Phone: | | | | | CONSULT TO | [phone] | [phone] | | | | | ORTHOPEDICS | | Fax: | | | | | AND | | [phone] | | | | | REHABILITATI | [...] | | | | | | [place], | | | | | | | [place] | | | | | | | [address] | | | | | | | Phone: | | | | | | | [phone] | | | | | | | Fax: | | | | | | | [phone] | +--------+--------+ + + + + Encounter Details +--------+---------+ + + + | Date | Type | Department | Care Team | Description | +--------+---------+ + + + | 02/08/ | Office | Orthopaedics at | Jaswant Angeles MD | Shoulder Pain; | | 2007 | Visit | [facility] [address] | [address] | Unspecified | | | | Ave Mailcode: CH12A | [address] | Disorders of Bursae | | | | [place] | [place], [place] | and Tendons in | | | | and Healing, | [address] | Shoulder Region | | | | | [phone] | | | | | Floor [place], [place] | | | | | | [address] | | | | | | [phone] | | | +--------+---------+ + + + [...] has underg one physical therapy without significant nursing home benefit. He has a history of left [...] | | + +---------+ + + | [facility] DEPART[facility] OF | | | | [...]
--- OUTSIDE RECORDS SUMMARY | ~2019-04-20 | XMS | Encounter Summary ---
Demographics + + + | Address | [address] | | | [place] [address] | + + + | Home Phone [...] | Organization | [facility] | | | and [...] Team Providers + +------+ + | Care Human Resources Technician Name | Role | Phone | [...] | | [address] | [place] [address] | | | | | [place] | [phone] | | | | | [address] | | | | | | [phone] | | | +--------+---------+ + + + [...] from t he original. Wes Melvin MD [address] [place] [address], [address] [place] [id number] FAX: NEUROSURGERY FOLLOW-UP CHIEF COMPLAINT: Chief Complaint [...] Discectomy Fusion; Surgeon: Wes Melvin MD; Location: [facility] MAIN OR CURRENT MEDICATIONS: Current Outpatient [...]
--- OUTSIDE RECORDS SUMMARY | ~2019-04-20 | XMS | Encounter Summary ---
Demographics + + + | Address | [address] | | | [place] [address] | + + + | Home Phone | | + + + | Preferred Language | Unknown | + + + | Marital Status | Single | + + + | Presybeterian Affiliation | 1041 | + + + | Race | Unknown | + + + | Ethnic Group | Unknown | + + + Author + + + | Author | [facility] | | | and [place] | + + + | Organization | [facility] | | | and [place] | [...] Team Providers + +------+ + | Care Streetcar Operator Name | Role | Phone | [...] [address] | | | | | | [place] | | | | | | [address] | | | | | | [phone] | | | +--------+ + + + [...]
--- OUTSIDE RECORDS SUMMARY | ~2019-04-20 | XMS | Encounter Summary ---
Demographics + + + | Address | [address] | | | [place] [address] | + + + | Home Phone [...] + + + | Author | [facility] | | | and [place] | + + + | Organization | [facility] | | | and [...] Team Providers + +------+ + | Care Chicken Raiser Name | Role | Phone | + [...] [place] | | | | | | [address] | | | | | | [phone] | | | +--------+ + + + [...]
--- OUTSIDE RECORDS SUMMARY | ~2019-04-20 | XMS | Encounter Summary ---
Demographics + + + | Address | [address] | | | [place] [address] | + + + | Home Phone [...] | Organization | [facility] | | | and [place] [...] Providers + +------+ + | Care Director Investor Relations Name | Role | Phone | + +------+ + | Dominic Carlin MD | PCP | | + +------+ + Encounter Details +--------+ + + + + | Date | Type | Department | Care Team | Description | +--------+ + + + + | 07/27/ | Hospital | [facility] | Ernesto Thomas, | | | 2014 | Encounter | MED CTR ACUTE | PT [address] | | | | | PHYSICAL THERAPY | [place] | | | | | [address] | [address] | | | | | [place] [address] | | | | | | [phone] | | | +--------+ + + + [...]
--- OUTSIDE RECORDS SUMMARY | ~2019-04-20 | XMS | Encounter Summary ---
Demographics + + + | Address | [address] | | | [place] [address] | + + + | Home Phone [...] | [facility] | | [...] Team Providers + +------+ + | Care Inside Sales Consultant Name | Role | Phone [...] [address] | | | | | | [place] | | | | | | [address] | | | | | | [phone] | | | +--------+ + + + [...]
--- OUTSIDE RECORDS SUMMARY | ~2019-04-20 | XMS | Encounter Summary ---
Demographics + + + | Address | [address] | | | [place] [address] | + + + | Home Phone [...] | Organization | [facility] | [...] Team Providers + +------+ + | Care Metal Cleaner Name | Role | Phone | + +------+ + PCP | Unavailable | + +------+ + Encounter Details +--------+ + + + + | Date | Type | Department | Care Team | Description | +--------+ + + + + | 05/16/ | Hospital | [facility] | Conversion | DDD (degenerative | | 2012 | Encounter | [facility] MRI | Transaction, | disc disease); | | | | [address] | Provider Unknown | Neuralgia; Arterial | | | | [place], [place] | | ischemic stroke, | | | | [address] | (Fax) | MCA, left, presumed | | | | [phone] | | (HCC); | | | | [...] ISA Alford ALEXANDER1945MRI BRAIN WO | | OVLEYEZZ77/31/2013 2:28 PM HISTORY: Underlying history of previous [...]
--- OUTSIDE RECORDS SUMMARY | ~2019-04-20 | XMS | Clinical Summary ---
Demographics + + + | Address | [address] | | | [place] [address] | + + + | Home Phone [...] [facility] | | | and [place] [...] Providers + +------+ + | Care Tax Manager Cpa Name | Role | Phone | + [...] | OSTEOTECH - | | 03/15/ | [id number] | | - [id number]: Qty: | | Spine | OSTT | | 2016 | | | 1 on 07/26/2014 by Olegario, | | Agustina | | | | /[id number] | | Wes Rasmussen MD at [facility] | | al | | | | 1-069 | | [facility] | | | | | | / | + +------+--------+ +--------+--------+--------+ | Allograft Lordotic [id number] - | | N/A: | SOFAMOR | | 03/27/ | [id number] | | [id number]: Qty: 1 on | | Spine | DANEK - DIV | | 2016 | | | 07/26/2014 by Wes Melvin | Jose Berrios | [employer] | | | /[id number] | | at [facility] | | al | - SFDK | | | 137 | | [facility] | | | | | | /[id number] | | | | | | | | 3633 | + +------+--------+ +--------+--------+--------+ | Allogft Lordtc Bone Sr | | N/A: | SPINALGRAFT | | 03/19/ | [id number] | | [id number] - [id number]: | | Spine | | | 2016 | | | Qty: 1 on 07/26/2014 by Olegario, | | Cervic | TECHNOLOGIE | | | /[id number] | | Wes Rasmussen MD at [facility] | | al | S - SPNL | | | 822 | | [facility] | | | | | | /[id number] | | [place] | | | | | | 3280 | + +------+--------+ +--------+--------+--------+ | Allograft Lordotic [id number] - | | N/A: | SOFAMOR | | 03/27/ | [id number] | | [id number]: Qty: 1 on | | Spine | DANEK - DIV | | 2016 | | | 07/26/2014 by Wes Melvin, | | Cervic | [employer] | | | /[id number] | | at [facility] | | al | - SFDK | | | 141 | | [facility] | | | | | | /[id number] | | | | | | | | 3633 | + +------+--------+ +--------+--------+--------+ | Allogft Lordtc Bone Sr | | N/A: | SPINALGRAFT | | 03/23/ | [id number] | | [id number] - [id number]: | | Spine | | | 2017 | | | Qty: 1 on 07/26/2014 by Olegario, | | Agustina | ROLDAN | | | /[id number] | | Wes Rasmussen MD at [facility] | | al | S - SPNL | | | 967 | | [facility] | | | | | | /[id number] | | CENTER | | | | | | 3899 | + +------+--------+ +--------+--------+--------+ | Screw Slf-Drl F/A 4.5x17mm - | | N/A: | SOFAMOR | | | [id number] | | [id number]: Qty: 2 on | | Spine | DANEK - DIV | | | | | 07/26/2014 by Wes Melvin, | | Agustina | [employer] | | | | | MD at [facility] | | al | - [facility] | | | | | [facility] | | | | | | | + +------+--------+ +--------+--------+--------+ | Screw Slf-Drl V/A 4.0x16mm - | | N/A: | SOFAMOR | | | [id number] | | [id number]: Qty: 6 on | | Spine | DANEK - DIV | | | | | 07/26/2014 by Wes Melvin, | | Agustina | [employer] | | | | | MD at [facility] | | al | - [facility] | | | | | [facility] | | | | | | | + +------+--------+ +--------+--------+--------+ | Screw Slf-Drl V/A 4.0x17mm - | | N/A: | SOFAMOR | | | [id number] | | [id number]: Qty: 2 on | | Spine | DANEK - DIV | | | 7 / | | 07/26/2014 by Wes Melvin, | Jose Berrios | [employer] | | | | | at [facility] | | al | - [facility] | | | | | [facility] | | | | | | | + +------+--------+ +--------+--------+--------+ | Plate Ant [place] Cerv 80mm | | N/A: | [employer] - | | | [id number] | | - [id number]: Qty: 1 | | Spine | MEDT | | | 0 / / | | on 07/26/2014 by Wes Melvin | Jose Berrios | | | | | | MD Valery at [facility] | | al | | | | | | [facility] | | | | | | [...] +---------+--------+ | [employer]MIN | VETERA | [id number] | | | | Indemn | | | NS | | 017-Pr | | | ity | | | ADMIN | | esent | | | | | | [place] | | | | | | | | [place] | | | | | | + +--------+ +--------+ +---------+--------+ | MEDICARE | MEDICA | [id number] | 11/15/19 | [phone] | | Medica | | | RE | | 16-Pre | 5 | | re | | | PART A | | sent | | | | | | AND B | | | | | | + +--------+ +--------+ +---------+--------+ | [facility] | IHS | [id number] | 07/16/19 | | | Indemn | [...] Person | Self | [birth year] | [address] | Jose Coombs | josemanuel/Cristi | | 1945 | [phone] | [place] | | | carolyn | | | 4 (Home) | [address] | + +--------+ +--------+ + + Advance Directives + + + + + | Type | Date Recorded | Patient | Explanation | | | | Blacktop Spreader | | + + + + + | Power of | | | | | Lighting Technician | | | | + + + [...]
--- OUTSIDE RECORDS SUMMARY | ~2019-04-20 | XMS | Encounter Summary ---
Demographics + + + | Address | [address] | | | [place] [address] | + + + | Home Phone [...] Organization | [facility] | [...] Providers + +------+ + | Care Head Of Design Name | Role | Phone | + +------+ + | Dominic Carlin MD | PCP | | + +------+ + Encounter Details +--------+ + + + + | Date | Type | Department | Care Team | Description | +--------+ + + + + | 09/11/ | Hospital | [facility] | Conversion | Pain | | 2016 | Encounter | CONVERSION [address] | Transaction, | | | | | [address] | Provider Unknown | | | | | [facility] | [phone] | | | | | [address] | (Fax) | | | | | [phone] | | | +--------+ + + + [...]
--- OUTSIDE RECORDS SUMMARY | ~2019-04-20 | XMS | Encounter Summary ---
Demographics + + + | Address | [address] | | | [place] [address] | + + + | Home Phone [...] + | Organization | [facility] [...] Team Providers + +------+ + | Care Insulation Sprayer Name | Role | Phone | [...] | | | | | [address] [facility] [address] | [place] [address] | | | | | [place] | [phone] | | | | | [address] | | | | | | [phone] | | | +--------+ + + + [...]
--- OUTSIDE RECORDS SUMMARY | ~2019-04-20 | XMS | Encounter Summary ---
Demographics + + + | Address | [address] | | | [place] [address] | + + + | Home Phone [...] + + + | Organization | [facility] [...] Team Providers + +------+ + | Care Aligner Barrel And Receiver Name | Role | Phone | + [...] | | [address] | [place] [address] | pain | | | | [place] | [phone] | | | | | [address] | | | | | | [phone] | | | +--------+ + + + [...] COMPARISON: CERVICAL MRI MAY 16, 2013 FROM [facility] | LAB | | [facility] FINDINGS: An AP view and lateral [...] PAINCOMPARISON: CERVICAL MRI MAY 16, 2013 FROM [facility] | | MEDICAL CENTERFINDINGS: An AP [...] + | MISCELLANEOUS LAB | | | [phone] | + +---------+ + + | MISCELANIOUS LAB | | | [phone] | + +---------+ + + documented in this encounter Visit Diagnoses + + | Diagnosis | + + | Spinal stenosis - Primary Spinal stenosis, unspecified region other than cervical | + + | Neck pain Cervicalgia | + + documented in this encounter"
--- OUTSIDE RECORDS SUMMARY | ~2019-04-20 | XMS | Encounter Summary ---
Demographics + + + | Address | [address] | | | [place] [address] | + + + | Home Phone [...] Organization | [facility] | | | and [...] Team Providers + +------+ + | Care Adjunct Physics Instructor Name | Role | Phone | + [...] | MD [address] | [address] | | | | | Procedures | [address] | [place], | | | | | MRI Lumbar | [place], | [place] | | | | | Spine wo | [place] [address] | [address] | | | | | Contrast | Phone: | Phone: | | | | | | [phone] | [phone] | | | | | | Fax: | Fax: | | | | | | [phone] | [phone] | +--------+--------+ + + + + Reason [...] | MD [address] | [address] | | | | | Procedures | [address] | [place], | | | | | MRI Lumbar | [place], | [place] | | | | | Spine wo | [place] [address] | [address] | | | | | Contrast | Phone: | Phone: | | | | | | [phone] | [phone] | | | | | | Fax: | Fax: | | | | | | [phone] | [phone] | +--------+--------+ + + + + Encounter Details +--------+ + + + + | Date | Type | Department | Care Team | Description | +--------+ + + + + | 01/30/ | Hospital | [facility] | Wes Melvin MD | Back pain | | 2013 | Encounter | MED CTR MRI [address] | [address] | | | | | [place], | [place] [address] | | | | | [place] [address] | [phone] | | | | | [phone] | | | +--------+ + + + [...] + | MISCELLANEOUS LAB | | | [phone] | + +---------+ + + | MISCELANIOUS LAB | | | [phone] | + +---------+ + + documented in this encounter Visit Diagnoses + + | Diagnosis | + + | Back pain Backache, unspecified | + + documented in this encounter"
--- OUTSIDE RECORDS SUMMARY | ~2019-04-20 | XMS | Encounter Summary ---
Demographics + + + | Address | [address] | | | [place] [address] | + + + | Home Phone [...] | Organization | [facility] [...] Team Providers + +------+ + | Care Bee Breeder Name | Role | Phone | + +------+ + PCP | Unavailable | + +------+ + Encounter Details +--------+ + + + + | Date | Type | Department | Care Team | Description | +--------+ + + + + | 05/16/ | Hospital | [facility] | Conversion | DDD (degenerative | | 2012 | Encounter | [facility] MRI | Transaction, | disc disease); | | | | [address] | Provider Unknown | Neuralgia; Chronic | | | | [place], [place] | | ischemic right MCA | | | | [address] | (Fax) | stroke | | | | [phone] | | | +--------+ + + + [...] 01/06/2019 7:45 PM PDT ISA Alford ALEXANDER1945MRI CERVICAL | | SPINE WO [id number]/31/2013 2:28 PM HISTORY: Degenerative disc disease with [...]
--- OUTSIDE RECORDS SUMMARY | ~2019-04-20 | XMS | Encounter Summary ---
Demographics + + + | Address | [address] | | | [place] [address] | + + + | Home Phone | | + + + | Preferred Language | Unknown | + + + | Marital Status | Single | + + + | Spiritism Affiliation | 1041 | + + + | Race | Unknown | + + + | Ethnic Group | Unknown | + + + Author + + + | Author | [facility] | | | and [place] | + + + | Organization | [facility] | | | and [...] Team Providers + +------+ + | Care Staffing Assistant Name | Role | Phone | [...] | | | | | | | [place] | | | | | | | [...] + + | 07/26/ | Hospital | [facility] | Wes Melvin MD | Other myelopathy | | 2014 | Encounter | MED CTR XRAY [address] | ([facility]) | | | | [address] | [place] [address] | | | | | [place] [address] | [phone] | | | | | [phone] | | | +--------+ + + + [...] Chart Review. | [facility] | | | [facility] | | | [facility] | | | - IMAGING | + + + + + + + + | Performing | Address | City/State/Zipcode | Phone Number | | Organization | | | | + + + + + | [facility] | [address] | [place] | [phone] | | [facility] | | [address] | | | - IMAGING | | | | + + + + + documented in this encounter Visit Diagnoses + + | Diagnosis | + + | Other myelopathy | + + documented in this encounter"
--- OUTSIDE RECORDS SUMMARY | ~2019-04-20 | XMS | Encounter Summary ---
Demographics + + + | Address | [address] | | | [place] [address] | + + + | Home Phone [...] | Organization | [facility] | | | and [place] [...] Team Providers + +------+ + | Care Strike Out Machine Operator Name | Role | Phone [...] | | [address] | [place] [address] | pain | | | | [place] | [phone] | | | | | [address] | | | | | | [phone] | | | +--------+ + + + [...] COMPARISON: CERVICAL MRI MAY 16, 2013 FROM [facility] | LAB | | [facility] FINDINGS: An AP view and lateral [...] PAINCOMPARISON: CERVICAL MRI MAY 16, 2013 FROM [facility] | | MEDICAL CENTERFINDINGS: An AP view [...] + | MISCELLANEOUS LAB | | | [phone] | + +---------+ + + | MISCELANIOUS LAB | | | [phone] | + +---------+ + + documented in this encounter Visit Diagnoses + + | Diagnosis | + + | Spinal stenosis - Primary Spinal stenosis, unspecified region other than cervical | + + | Neck pain Cervicalgia | + + documented in this encounter"
--- OUTSIDE RECORDS SUMMARY | ~2019-04-20 | XMS | Encounter Summary ---
Demographics + + + | Address | [address] | | | [place] [address] | + + + | Home Phone | | + + + | Preferred Language | Unknown | + + + | Marital Status | Single | + + + | Zoroastrianism Affiliation | 1041 | + + + | Race | Unknown | + + + | Ethnic Group | Unknown | + + + Author + + + | Author | [facility] | | | and [place] | + + + | Organization | [facility] | | | and [place] | [...] Team Providers + +------+ + | Care Music Mixer Name | Role | Phone | + [...] | | [address] | [place] [address] | instructions) | | | | [place] | [phone] | | | | | [address] | | | | | | [phone] | | | +--------+ + + + [...]
--- OUTSIDE RECORDS SUMMARY | ~2019-04-20 | XMS | Encounter Summary ---
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 | [address] | [place], [place] | [phone] | | [facility] | | [address] | | | - LABORATORY | | | | + + + + + | [facility] | [address] | [place], [place] | | | [facility] | | [address] | | | - LABORATORY | | [...] mL/min/1.73m2 | [facility] | | | [facility] | RATE,ESTIMATED | | MEDICAL | | | | mL/min/1.73r7Snqi than | | CENTER - | | [...] | + + + + + | [facility] | [address] | [place], [place] | [phone] | | [facility] | | [address] | | | - LABORATORY | | | | + + + + + | [facility] | [address] | [place], [place] | | | [facility] | | [address] | | | - LABORATORY | | [...]
--- OUTSIDE RECORDS SUMMARY | ~2019-04-20 | XMS | Encounter Summary ---
Demographics + + + | Address | [address] | | | [place] [address] | + + + | Home Phone | | + + + | Preferred Language | Unknown | + + + | Marital Status | Single | + + + | Quaker Affiliation | 1041 | + + + | Race | Unknown | + + + | Ethnic Group | Unknown | + + + Author + + + | Author | [facility] | | | and [place] | + + + | Organization | [facility] | | | [...] Team Providers + +------+ + | Care Wireless Retail Manager Name | Role | Phone | [...] | | | | [address] | [facility] | | | | | [place], [place] | [address] [place], | | | | | [address] | [place] [address] | | | | | [phone] | [phone] | | | | | | | [...] Performed At | + + + | [id number] [facility] | | | [facility] [address] | | | , RADIOLOGY | | | Patient Name: ISA OSMAN Date of : 1945 | | | Medical Record: [id number] Account: [id number] O/P// | | | Exam Date/Time: 08/31/2009 04:15 P Ordering | | | Provider: NELL MUSE Detail: 1430 / / [facility] Exam | | | Description: [...] exiting right L1 nerve root. There is falb-ox-fyvkdjik left neural | | | foraminal narrowing. [...] lateral | | | recesses. There is bjbtxacj-lj-kikiaj right and severe left neural | | [...] | bilateral L4 nerve roots. There is rzwdbaur-so-lkkcfl left and severe | | | right [...] AP dimension. There is severe left and eisjkehy-kd-zcamdq right | | | neural foraminal narrowing that is likely impinging on the exiting | | | bilateral L4 nerve roots. L5-S1: There is disk desiccation with | | | ixtixdvc-ev-yhdjsw disk space narrowing and associated degenerative | [...] greatest on the left side. There is nguifbee-jm-ycdugc right | | | with severe left [...] and L5 nerve roots. 3. Please see pmuqq-lv-iqved | | | discussion above. Read by AUDRA WILKINS DO | | | 09/02/2009 11:17 A Electronically Signed by AUDRA WILKINS DO | | | 09/02/2009 09:09 P A | | | 04:03 P BALBINA/brisa/[id number]/ cc: MD AUDRA PAIGE | | | DO CLAUDETTE | | + + + + + | Procedure Note | + + | Eldon, Rad Conversion - 01/08/2019 4:40 PM PDT | | [id number] | | [facility] | | [facility] [address] | | , | | RADIOLOGY | | | | Patient Name: ISA OSMAN | | Date of : 1945 | | Medical Record: [id number] | | Account: [id number] | | O/P// | | | | [...] exiting right L1 nerve root. There is oudq-jw-vodqinbo left neural | | foraminal narrowing. | [...] narrowing of both lateral recesses. There is tnyzqdhu-xe-oranqz right | | and severe left neural [...] L4 nerve roots. There is | | kpkgcybq-zl-ejjmte left and severe right neural foraminal narrowing [...] AP dimension. There is severe left and hoilpteq-po-ygmsfm right | | neural foraminal narrowing that is likely impinging on the exiting | | bilateral L4 nerve roots. | | | | L5-S1: There is disk desiccation with hscmrlce-xg-ldbjcb disk space | | narrowing and associated [...] greatest on the left side. There is pthtxzpw-mx-kryokx | | right with severe left neural [...] nerve roots. | | 3. Please see kmqze-br-eqpks discussion above. | | | | | | | | | | | | | | Read by | | AUDRA WILKINS DO 09/02/2009 11:17 A | | Electronically Signed by | | AUDRA WILKINS DO 09/02/2009 09:09 P | | | | A | | P | | BALBINA/brisa/[id number]/ | | cc: NELL MUSE MD | | AUDRA WILKINS DO | + + documented in this encounter Visit Diagnoses + + | Diagnosis | + + | Backache, unspecified | + + documented in this encounter"
--- OUTSIDE RECORDS SUMMARY | ~2019-04-20 | XMS | Encounter Summary ---
Demographics + + + | Address | [address] | | | [place] [address] | + + + | Home Phone [...] | Organization | [facility] | | | and [place] [...] Team Providers + +------+ + | Care Dish Machine Operator Name | Role | Phone [...] | | [address] | [place] [address] | | | | | [place] | [phone] | | | | | [address] | | | | | | [phone] | | | +--------+ + + + [...]
--- OUTSIDE RECORDS SUMMARY | ~2019-04-20 | XMS | Encounter Summary ---
Demographics + + + | Address | [address] | | | [place] [address] | + + + | Home Phone [...] Organization | [facility] | | | and [place] [...] Team Providers + +------+ + | Care Sugar Presser Name | Role | Phone | + [...] + + | 07/26/ | Surgery | [facility] | Wes Melvin MD | C3-4, C4-5, C5-6, | | 2014 | | MED CTR OR INTRA OP | [address] | C6-7 Anterior | | | | [address] | [place] [address] | Cervical Discectomy | | | | [place] | [phone] | Fusion | | | | [address] | | | | | | [phone] | | | +--------+---------+ + + + [...] might be differen t from the original. [facility] NEUROSURGERY DISCHARGE SUMMARY Patient Name: Buck [...] Care Everywhere.CERVICAL FUSION , DISCHARGE INSTRUCTIONS FOR (ITALIAN)documented in this encounter Medications at Time of [...] has difficulty lifting his arms up above [facility] d/t weak deltiod/upper arms. Pt had a shuffle gait and used the wall and furniture to help keep his balance. Chevy martinez [facility]. Spoke with PT and she provided [...] + + | Performing | Address | City/State/[facility] | Phone Number | [...]
--- OUTSIDE RECORDS SUMMARY | ~2019-04-20 | XMS | Encounter Summary ---
Demographics + + + | Address | [address] | | | [place] [address] | + + + | Home Phone [...] | Organization | [facility] | | | and [...] Providers + +------+ + | Care Sports Official Name | Role | Phone | + [...] | | CON[address] | [address] [place] [address] | | | | | [address] | [address] | | | | | [place], [place] | [place] [address] | | | | | [address] | [phone] | | | | | [phone] | | | +--------+ + + + [...] | | | Grade 1 diastolic abnormality, [place] visually estimates LVEF 65-70%. | | | [...] Grade 1 | | | diastolic abnormality, [place] visually estimates LVEF 65-70%. Mild | | [...] pressures of 0-5mmHg. MEASUREMENTS | | | Clinical Data Associate: DEMARCO Authenticated by: Allen Grant | | | DO Report Date/Time: -- [id number] | | + + + + + | Procedure Note | + + | Eldon, Rad Conversion - 01/05/2019 8:26 PM PDT Patient Name: Yonny Bell of | | : 1945 Performing Physician: Allen Grant | | DO INDICATIONS c | | va CONCLUSIONS 1. See Dictation. 2. Mild concentric LVH, systolic function | | NML, Grade 1 diastolic abnormality, [place] visually estimates LVEF 65-70%. Mild LAE. | [...] venous pressures of 0-5mmHg. | | MEASUREMENTS Clinical Data Associate: HERLINDAuthenticated by: Allen Morris | | Date/Time: -- [id number] IMPRESSION: 1. See Dictation. 2. Mild concentric | | LVH, systolic function NML, Grade 1 diastolic abnormality, [place] visually estimates | | LVEF 65-70%. Mild [...] | |MEASUREMENTS | | | | | |Clinical Data Associate: | |Authenticated by: Allen Grant DO | |Report Date/Time: -- [id number] | | | |IMPRESSION: | |1. See Dictation. 2. Mild concentric LVH, systolic function NML, Grade 1 diastolic abnorma lity, [place] visually estimates LVEF 65-70%. Mild LAE. RA [...]
--- OUTSIDE RECORDS SUMMARY | ~2019-04-20 | XMS | Encounter Summary ---
Demographics + + + | Address | [address] | | | [place] [address] | + + + | Home Phone [...] | [facility] | | | and [...] Team Providers + +------+ + | Care Credit Risk Analytics Manager Name | Role | Phone | [...] | | | | | | | [place] | | | | | | | [...] + + | 07/26/ | Hospital | [facility] | Wes Melvin MD | | | 2015 - | Encounter | MED CTR SURGICAL | [address] | | | | | [address] | [place] [address] | | | 07/27/ | | [place] [address] | [phone] | | | 2015 | | [phone] | | | +--------+ + + + [...] might be differen t from the original. [facility] NEUROSURGERY DISCHARGE SUMMARY Patient Name: Buck Bell [...] Care Everywhere.CERVICAL FUSION , DISCHARGE INSTRUCTIONS FOR (ARABIC)documented in this encounter Medications at Time of [...] | | | | | | | [facility] 07/26/14 at 1800, For 2 doses, [...] PDT | | | | | Starting [facility] 07/26/14 at 1516, | | | [...] PDT | | | | | Starting [facility] 07/26/14 at 1516, | | | [...] PDT | | | | | Starting [facility] 07/26/14 at 1516, | | | [...] | | | | | | use [place] 10/325 if ordered. If | | | [...] | | | | | | | [facility] 07/26/14 at 1321, Hold if HR [...] | | | | | CONTINUOUS, Starting [facility] 07/26/14 | | AM PDT | [...] AM PDT | | | | | [facility] 07/26/14 at 1545, If | | [...]
--- OUTSIDE RECORDS SUMMARY | ~2019-04-20 | XMS | Encounter Summary ---
Demographics + + + | Address | [address] | | | [place] [address] | + + + | Home Phone [...] Organization | [facility] | | [...] Team Providers + +------+ + | Care Principal Planner Name | Role | Phone | + +------+ + PCP | Unavailable | + +------+ + Encounter Details +--------+ + + + + | Date | Type | Department | Care Team | Description | +--------+ + + + + | 05/16/ | Hospital | [facility] | Conversion | DDD (degenerative | | 2012 | Encounter | [facility] | Transaction, | disc disease); | | | | [address] | Provider Unknown | Neuralgia; Chronic | | | | [place], [place] | | ischemic right MCA | | | | [address] | (Fax) | stroke | | | | [phone] | | | +--------+ + + + [...] Alford ALEXANDER1945MRI CERVICAL | | SPINE WO KCVXOKRE59/31/2013 2:28 PM HISTORY: Degenerative disc disease with [...]
--- OUTSIDE RECORDS SUMMARY | ~2019-04-20 | XMS | Encounter Summary ---
Demographics + + + | Address | [address] | | | [place] [address] | + + + | Home Phone [...] | Organization | [facility] | [...] Team Providers + +------+ + | Care Wilderness Guide Name | Role | Phone | [...] [address] | | | | | [place], [place] | [place] [address] | | | | | [address] | [phone] | | | | | [phone] | | | +--------+--------+ + + + [...]
--- OUTSIDE RECORDS SUMMARY | ~2019-04-20 | XMS | Encounter Summary ---
Demographics + + + | Address | [address] | | | [place] [address] | + + + | Home Phone [...] Organization | [facility] [...] Team Providers + +------+ + | Care Sheep Sorter Name | Role | Phone | + [...] | | [address] | [place] [address] | (Primary Dx); | | | | [place] | [phone] | Cervical spondylosis | | | | [address] | | with myelopathy; | | | | [phone] | | Essential | | | | [...] [address] | [place] | [phone] | | [facility] | | [address] | | | - IMAGING | | [...] | Basophils | | K/uL | [facility] | | | | | | MEDICAL | | | | | | CENTER - | | | | | | LABORATORY | | + + + + + + + + | Specimen | + + | Blood | + + + + + + + | Performing | Address | City/State/[facility]ode | Phone Number | | Organization | | | | + + + + + | [facility] | [address] | [place] | [phone] | | [facility] | | [address] | | | - LABORATORY | | | | + + + + + | [facility] | [address] | [place] | | | [facility] | | [address] | | | - LABORATORY | | [...] mL/min/1.73m2 | [facility] | | | [facility] | RATE,ESTIMATED | | MEDICAL | | | | mL/min/1.48o0Zhdu than | | CENTER - | | [...] + | [facility] | [address] | [place], [place] | [phone] | | [facility] | | [address] | | | - LABORATORY | | | | + + + + + | [facility] | [address] | [place], [place] | | | [facility] | | [address] | | | - LABORATORY | | [...]
--- OUTSIDE RECORDS SUMMARY | ~2019-04-20 | XMS | Encounter Summary ---
Demographics + + + | Address | [address] | | | [place] [address] | + + + | Home Phone [...] | Organization | [facility] | | | and [...] Team Providers + +------+ + | Care County Attorney Name | Role | Phone | + +------+ + | Dominic Carlin MD | PCP | | + +------+ + Encounter Details +--------+ + + + + | Date | Type | Department | Care Team | Description | +--------+ + + + + | 09/11/ | Hospital | [facility] | Conversion | Pain | | 2016 | Encounter | CONVERSION [address] | Transaction, | | | | | [address] | Provider Unknown | | | | | [facility] | [phone] | | | | | [address] | (Fax) | | | | | [phone] | | | +--------+ + + + [...]
--- OUTSIDE RECORDS SUMMARY | ~2019-04-20 | XMS | Encounter Summary ---
Demographics + + + | Address | [address] | | | [place] [address] | + + + | Home Phone [...] + + | Author | [facility] | + + + | Organization | [facility] | + + + | Address | Unknown | + + + | Phone | Unavailable | + + + Support + + +---------+ + | Name | Relationship | Address | Phone | + + +---------+ + | Gautam Ray | ECON | Unknown | | + + +---------+ + Care Team Providers + +------+ + | Care Burglar Alarm Mechanic Name | Role | Phone | [...] | | | | | | [address] | | | | | | | [place], | | | | | | | [place] | | | | | | | [address] | | | | | | | Phone: | | | | | | | [phone] | | | | | | | Fax: | | | | | | | [phone] | +--------+--------+ + + + + Encounter Details +--------+---------+ + + + | Date | Type | Department | Care Team | Description | +--------+---------+ + + + | 03/05/ | Office | Orthopaedics at | Jaswant Angeles MD | Shoulder Pain; | | 2007 | Visit | [facility] [address] | [address] | Injury of Axillary | | | | Ave Mailcode: CH12A | [address] | Nerve; Unspecified | | | | [facility] | [place], [place] | Disorders of Bursae | | | | and Healing, | [address] | and Tendons in | | | | [facility] | [phone] | Shoulder Region | | | | Floor [place], [place] | | | | | | [address] | | | | | | [phone] | | | +--------+---------+ + + + [...] | | + +---------+ + + | [facility] DEPARTMENT OF | | | [...]
--- OUTSIDE RECORDS SUMMARY | ~2019-04-20 | XMS | Encounter Summary ---
Demographics + + + | Address | [address] | | | [place] [address] | + + + | Home Phone [...] | Organization | [facility] [...] Team Providers + +------+ + | Care Pick Up And Delivery Driver Name | Role | Phone | + +------+ + PCP | Unavailable | + +------+ + Encounter Details +--------+ + + + + | Date | Type | Department | Care Team | Description | +--------+ + + + + | 08/01/ | Hospital | [facility] | Helio Fountian | | | 2005 | Encounter | CON[address] | C | | | | | [address] | | | | | | [place] | | | | | | [address] | | | | | | [phone] | | | +--------+ + + + [...]
--- OUTSIDE RECORDS SUMMARY | ~2019-04-20 | XMS | Encounter Summary ---
Demographics + + + | Address | [address] | | | [place] [address] | + + + | Home Phone [...] + + | Author | [facility] | + + + | Organization [...] Team Providers + +------+ + | Care Visual Merchandiser Name | Role | Phone | + [...] [address] | Angelica Guerin [place], | (EMG of left | | | | [address], [address] | [place] [address] | shoulder) | | | | [address], | [phone] | | | | | [address] | | | | | | [place], [place] | | | | | | [address] | | | | | | [phone] | | | +--------+ + + + [...] and waveforms have b een scanned into [employer]. The summary is as follows: Motor Nerve [...] + +--------+ + + | [place] NERVE CONDUCTION | Procedures | Routin | Cervicalgia | Ordered: 02/20/2008 | | TEST,MOTOR | | e | Cervical Radiculitis | | | | | | Pain in Joint, | | | | | | Shoulder Region | | + + +--------+ + + | [place] NERVE | Procedures | Routin | Cervicalgia [...]
--- OUTSIDE RECORDS SUMMARY | ~2019-04-20 | XMS | Encounter Summary ---
Demographics + + + | Address | [address] | | | [place] [address] | + + + | Home Phone | | + + + | Preferred Language | Unknown | + + + | Marital Status | Single | + + + | Judaism Affiliation | Unknown | + + + | Race | or | + + + | Ethnic Group | Not or | + + + Author + + + | Author | [facility] | + + + | [...] Team Providers + +------+ + | Care Toll Service Observer Name | Role | Phone | + [...] | | | | | | | [address] | | | | | | | Phone: | | | | | | | [phone] | | | | | | | Fax: | | | | | | | [phone] | +--------+--------+ + + + + Encounter [...] Angelica Mcconnell, | | | | | [facility] | [place] [address] | | | | | and Healing, | [phone] | | | | | Building | | | | | | Floor [place], [place] | | | | | | [address] | | | | | | [phone] | | | +--------+ + + + [...] data and waveforms have been scanned into [employer]. The summary is as follows: Motor Nerve [...] | + + +--------+ + + | [place] MUSCLE TEST, ONE | Procedures | Routin | Carpal Tunnel | Ordered: 04/17/2008 | | LIMB | | e | Syndrome Ulnar | | | | | | Neuritis Cervical | | | | | | Radiculitis | | + + +--------+ + + | [place] MOTOR NERVE | Procedures | Routin | Carpal Tunnel | Ordered: 04/17/2008 | | CONDUCT TEST, W | | e | Syndrome Ulnar | | | F-WAVE | | | Neuritis Cervical | | | | | | Radiculitis | | + + +--------+ + + | [place] NERVE | Procedures | Routin | Carpal [...]
--- OUTSIDE RECORDS SUMMARY | ~2019-04-20 | XMS | Encounter Summary ---
Demographics + + + | Address | [address] | | | [place] [address] | + + + | Home Phone [...] | Organization | [facility] | | | and [place] [...] Team Providers + +------+ + | Care Inventory Specialist Name | Role | Phone | [...] [address] | | | | | [place], [place] | [place] [address] | | | | | [address] | [phone] | | | | | [phone] | | | +--------+--------+ + + + [...]
--- OUTSIDE RECORDS SUMMARY | ~2019-04-20 | XMS | Encounter Summary ---
Demographics + + + | Address | [address] | | | [place] [address] | + + + | Home Phone | | + + + | Preferred Language | Unknown | + + + | Marital Status | Single | + + + | Shinto Affiliation | 1041 | + + + | Race | Unknown | + + + | Ethnic Group | Unknown | + + + Author + + + | Author | [facility] | | | and [place] | + + + | Organization | [facility] | [...] Team Providers + +------+ + | Care Railroad Car Truck Builder Name | Role | Phone | + +------+ + | Dominic Carlin MD | PCP | | + +------+ + Encounter Details +--------+ + + + + | Date | Type | Department | Care Team | Description | +--------+ + + + + | 12/25/ | Hospital | [facility] | Haroldo King | Cervical spondylosis | | 2015 | Encounter | MED CTR XRAY [address] | [address] | with myelopathy; | | | | [address] | [address] [facility] [address] | Degenerative disc | | | | [place] [address] | [place] [address] | disease, cervical; | | | | [phone] | [phone] | Cervical cord | | | | | | myelomalacia ([facility]); | | | | | | [...] Postop. COMPARISON: Multiple priors. FINDINGS: Visualized | [facility] | | skull base [...] + + | Performing | Address | City/State/[facility] | Phone Number | | Organization | | | | + + + + + | [facility] | [address] | [place] | [phone] | | [facility] | | [address] | | | - IMAGING | | [...]
--- OUTSIDE RECORDS SUMMARY | ~2019-04-20 | XMS | Encounter Summary ---
Demographics + + + | Address | [address] | | | [place] [address] | + + + | Home Phone [...] Organization | [facility] | [...] Team Providers + +------+ + | Care Fat Purification Worker Name | Role | Phone | [...] | | | | | [address] [facility] [address] | [place] [address] | | | | | [place] | [phone] | | | | | [address] | | | | | | [phone] | | | +--------+ + + + [...]
--- OUTSIDE RECORDS SUMMARY | ~2019-04-20 | XMS | Encounter Summary ---
Demographics + + + | Address | [address] | | | [place] [address] | + + + | Home Phone [...] Author + + + | Author | [facility] | + + + | [...] Team Providers + +------+ + | Care Provisioning Specialist Name | Role | Phone | [...] | 2008 | Visit | Center at [facility] [address] | [address] | Spinal Canal | | | | [address] | [address] [place], [place] | (Primary Dx) | | | | Mailcode: CH8N | [address] | | | | | [facility] | | | | | | and Healing, | | | | | | Building | | | | | | Floor [place], [place] | | | | | | [address] | | | | | | [phone] | | | +--------+---------+ + + + [...]
--- OUTSIDE RECORDS SUMMARY | ~2019-04-20 | XMS | Encounter Summary ---
Demographics + + + | Address | [address] | | | [place] [address] | + + + | Home Phone | | + + + | Preferred Language | Unknown | + + + | Marital Status | Single | + + + | Anglican Affiliation | Unknown | + + + | Race | or | + + + | Ethnic Group | Not or | + + + Author + + + | Author | [facility] | + + + | Organization | [facility] | + + + | Address | Unknown | + + + | Phone | Unavailable | + + + Support + + +---------+ + | Name | Relationship | Address | Phone | + + +---------+ + | Gautam Ray | ECON | Unknown | | + + +---------+ + Care Team Providers + +------+ + | Care Nut Steamer Name | Role | Phone | + [...] | | | | and tendons | [facility] | [facility] | | | | | in shoulder | Rd | Rd [place], | | | | | region, | [place], [place] | [place] | | | | | unspecified | [address] | [address] | | | | | Procedures | Phone: | Phone: | | | | | CONSULT TO | [phone] | [phone] | | | | | ORTHOPEDICS | Fax: | Fax: | | | | | AND | [phone] | [phone] | | | | | REHABILITATI | [...] | | | | | | [place], | | | | | | | [place] | | | | | | | [address] | | | | | | | Phone: | | | | | | | [phone] | | | | | | | Fax: | | | | | | | [phone] | +--------+--------+ + + + + Encounter Details +--------+---------+ + + + | Date | Type | Department | Care Team | Description | +--------+---------+ + + + | 04/19/ | Office | Orthopaedics at | Jaswant Angeles MD | Unspecified | | 2007 | Visit | [facility] [address] | [address] | Disorders of Bursae | | | | Ave Mailcode: CH12A | [address] | and Tendons in | | | | [place] for [facility] | [place], [place] | Shoulder Region | | | | and Healing, | [address] | (Primary Dx) | | | | | [phone] | | | | | Floor [place], [place] | | | | | | [address] | | | | | | [phone] | | | +--------+---------+ + + + [...]
--- OUTSIDE RECORDS SUMMARY | ~2019-04-20 | XMS | Encounter Summary ---
Demographics + + + | Address | [address] | | | [place] [address] | + + + | Home Phone [...] | Organization | [facility] | | | and [place] [...] Providers + +------+ + | Care Product Safety Test Engineer Name | Role | Phone | [...] | | | | | Degenerative | [place], [place] | | | | | | disc | [address] | | | | | | disease, | Phone: | | | | | | cervical | [phone] | | | | | | Cervical | Fax: | | | | | | cord | [phone] | | | | | | myelomalacia | | | | | | | ([facility]) S/P | | | | [...] | (Primary Dx); | | | | [place], [place] | [place] [address] | Degenerative disc | | | | [address] | [phone] | disease, cervical; | | | | [phone] | | Cervical cord | | | [...] t from the original. NICKOLAS Ponce [address] [facility], [address] [place] [address] FAX: NEUROSURGERY SURGICAL FOLLOW-UP CHIEF COMPLAINT: Chief [...] the patient is doing well. The multimedia editor to recovery will take many months and [...] | + + + + + | [facility] | [address] | [place], [place] | [phone] | | [facility] | | [address] | | | - IMAGING | | [...]
--- OUTSIDE RECORDS SUMMARY | ~2019-04-20 | XMS | Encounter Summary ---
Demographics + + + | Address | [address] | | | [place] [address] | + + + | Home Phone [...] | [facility] [...] Team Providers + +------+ + | Care Recyclable Materials Sorter Name | Role | Phone | + +------+ + | Dominic Carlin MD | PCP | | + +------+ + Encounter Details +--------+ + + + + | Date | Type | Department | Care Team | Description | +--------+ + + + + | 07/11/ | [facility] | [facility] | Wes Melvin MD | Cervical cord | | 2015 | Encounter | MED CTR XRAY [address] | [address] | myelomalacia (HCC); | | | | [place] | [place] [address] | Cervical spondylosis | | | | [place] [address] | [phone] | with myelopathy; | | | | [phone] | | Essential | | | | [...] ST. | [address] | [place], [place] | [phone] | | [facility] | | [address] | | | - IMAGING | | [...]
--- OUTSIDE RECORDS SUMMARY | ~2019-04-20 | XMS | Encounter Summary ---
Demographics + + + | Address | [address] | | | [place] [address] | + + + | Home Phone [...] + + | Author | [facility] | + + + | Organization | [facility] | + + + | Address | Unknown | + + + | Phone | Unavailable | + + + Support + + +---------+ + | Name | Relationship | Address | Phone | + + +---------+ + | Gautam Ray | ECON | Unknown | | + + +---------+ + Care Team Providers + +------+ + | Care Manager Talent Acquisition Name | Role | Phone | + [...] | in shoulder | Rd | Rd [place], | | | | | region, | [place], [place] | [place] | | | | | unspecified | [address] | [address] | | | | | Procedures | Phone: | Phone: | | | | | CONSULT TO | [phone] | [phone] | | | | | ORTHOPEDICS | Fax: | Fax: | | | | | AND | [phone] | [phone] | | | | | REHABILITATI | [...] | 2008 | Visit | Center at [facility] [address] | [address] | Cervical | | | | [address] | [place], | Radiculopathy | | | | Mailcode: CH8N | [place] [address] | | | | | [place] for [facility] | [phone] | | | | | and Healing, | | | | | | Building | | | | | | Floor [place], [place] | | | | | | [address] | | | | | | [phone] | | | +--------+---------+ + + + [...]
--- OUTSIDE RECORDS SUMMARY | ~2019-04-20 | XMS | Clinical Summary ---
Demographics + + + | Address | [address] | | | [place] [address] | + + + | Home Phone [...] | Organization | [facility] | | | and [...] Team Providers + +------+ + | Care Balance Sheet Analyst Name | Role | Phone | [...] | OSTEOTECH - | | 03/15/ | [id number] | | - [id number]: Qty: | | Spine | OSTT | | 2016 | | | 1 on 07/26/2014 by Olegario, | | Agustina | | | | /[id number] | | Wes Rasmussen MD at [facility] | | al | | | | 1-069 | | [facility] | | | | | | / | + +------+--------+ +--------+--------+--------+ | Allograft Lordotic [id number] - | | N/A: | SOFAMOR | | 03/27/ | [id number] | | [id number]: Qty: 1 on | | Spine | DANEK - DIV | | 2016 | | | 07/26/2014 by Wes Melvin | Jose Berrios | [employer] | | | /[id number] | | at [facility] | | al | - SFDK | | | 137 | | [facility] | | | | | | /[id number] | | | | | | | | 3633 | + +------+--------+ +--------+--------+--------+ | Allogft Lordtc Bone Sr | | N/A: | SPINALGRAFT | | 03/19/ | [id number] | | [id number] - [id number]: | | Spine | | | 2016 | | | Qty: 1 on 07/26/2014 by Olegario, | | Cervic | TECHNOLOGIE | | | /[id number] | | Wes Rasmussen MD at [facility] | | al | S - SPNL | | | 822 | | [facility] | | | | | | /[address] | | [place] | | | | | | 3280 | + +------+--------+ +--------+--------+--------+ | Allograft Lordotic [id number] - | | N/A: | SOFAMOR | | 03/27/ | [id number] | | [id number]: Qty: 1 on | | Spine | DANEK - DIV | | 2016 | | | 07/26/2014 by Wes Melvin, | | Cervic | [employer] | | | /[id number] | | at [facility] | | al | - SFDK | | | 141 | | [facility] | | | | | | /[address] | | | | | | | | 3633 | + +------+--------+ +--------+--------+--------+ | Allogft Lordtc Bone Sr | | N/A: | SPINALGRAFT | | 03/23/ | [id number] | | [id number] - [id number]: | | Spine | | | 2017 | | | Qty: 1 on 07/26/2014 by Olegario, | | Agustina | ROLDAN | | | /[id number] | | Wes Rasmussen MD at [facility] | | al | S - SPNL | | | 967 | | [facility] | | | | | | /[id number] | | CENTER | | | | | | 3899 | + +------+--------+ +--------+--------+--------+ | Screw Slf-Drl F/A 4.5x17mm - | | N/A: | SOFAMOR | | | [id number] | | [id number]: Qty: 2 on | | Spine | DANEK - DIV | | | | | 07/26/2014 by Wes Melvin, | | Agustina | [employer] | | | | | MD at [facility] | | al | - SFDK | | | | | [facility] | | | | | | | + +------+--------+ +--------+--------+--------+ | Screw Slf-Drl V/A 4.0x16mm - | | N/A: | SOFAMOR | | | [id number] | | [id number]: Qty: 6 on | | Spine | DANEK - DIV | | | | | 07/26/2014 by Wes Melvin, | | Agustina | [employer] | | | | | MD at [facility] | | al | - SFDK | | | | | [facility] | | | | | | | + +------+--------+ +--------+--------+--------+ | Screw Slf-Drl V/A 4.0x17mm - | | N/A: | SOFAMOR | | | [id number] | | [id number]: Qty: 2 on | | Spine | DANEK - DIV | | | 7 / | | 07/26/2014 by Wes Melvin, | Jose Berrios | [employer] | | | | | at [facility] | | al | - SFDK | | | | | [facility] | | | | | | | + +------+--------+ +--------+--------+--------+ | Plate Ant [place] Cerv 80mm | | N/A: | MEDTRONIC - | | | [id number] | | - [id number]: Qty: 1 | | Spine | MEDT | | | 0 / / | | on 07/26/2014 by Wes Melvin | Jose Berrios | | | | | | MD Valery at [facility] | | al | | | | | | [facility] | | | | | | [...] +---------+--------+ | [employer] ADMIN | VETERA | [id number] | | | | Indemn | | | NS | | 017-Pr | | | ity | | | ADMIN | | esent | | | | | | [place] | | | | | | | | [place] | | | | | | + +--------+ +--------+ +---------+--------+ | MEDICARE | MEDICA | [id number] | 11/15/19 | [phone] | | Medica | | | RE | | 16-Pre | 5 | | re | | | PART A | | sent | | | | | | AND B | | | | | | + +--------+ +--------+ +---------+--------+ | [facility] | IHS | [id number] | 07/16/19 | | | Indemn | [...] Person | Self | [birth year] | [address] | Jose Coombs | josemanuel/Cristi | | 1945 | [phone] | [place] | | | carolyn | | | 4 (Home) | [address] | + +--------+ +--------+ + + Advance Directives + + + + + | Type | Date Recorded | Patient | Explanation | | | | Dance Historian | | + + + + + | Power of | | | | | Insurance Salesperson | | | | + + + [...]
--- OUTSIDE RECORDS SUMMARY | ~2019-04-20 | XMS | Encounter Summary ---
Demographics + + + | Address | [address] | | | [place] [address] | + + + | Home Phone [...] | Organization | [facility] | | | and [place] [...] Team Providers + +------+ + | Care Batch Operator Name | Role | Phone | + +------+ + | Dominic Carlin MD | PCP | | + +------+ + Encounter Details +--------+ + + + + | Date | Type | Department | Care Team | Description | +--------+ + + + + | 07/11/ | [facility] | [facility] | Wes Melvin MD | Cervical cord | | 2015 | Encounter | MED CTR | [address] | myelomalacia (HCC); | | | | [facility] | [place] [address] | Cervical spondylosis | | | | [address] [place] | [phone] | with myelopathy; | | | | [place] [address] | | Essential | | | | [phone] | | hypertension; High | | | [...]
--- OUTSIDE RECORDS SUMMARY | ~2019-04-20 | XMS | Encounter Summary ---
Demographics + + + | Address | [address] | | | [place] [address] | + + + | Home Phone [...] | Organization | [facility] | [...] Team Providers + +------+ + | Care Computer Forensics Technician Name | Role | Phone | [...] | | | [place] | [place] [address] | | | | | [address] | [phone] | | | | | [phone] | | | +--------+ + + + [...] [address] | [place] | [phone] | | [facility] | | [address] | | | - IMAGING | | | | + + + + + documented in this encounter Visit Diagnoses + + | Diagnosis | + + | S/P cervical spinal fusion - Primary Arthrodesis status | + + documented in this encounter"
--- OUTSIDE RECORDS SUMMARY | ~2019-04-20 | XMS | Encounter Summary ---
Demographics + + + | Address | [address] | | | [place] [address] | + + + | Home Phone | | + + + | Preferred Language | Unknown | + + + | Marital Status | Single | + + + | Adventist Affiliation | Unknown | + + + | Race | or | + + + | Ethnic Group | Not or | + + + Author + + + | Author | [facility] | + + + [...] Team Providers + +------+ + | Care First Leveler Name | Role | Phone | + [...] in shoulder | [address] | [place], | | | | | region, | [place], [place] | [place] | | | | | unspecified | [address] | [address] | | | | | Procedures | Phone: | Phone: | | | | | CONSULT TO | [phone] | [phone] | | | | | ORTHOPEDICS | | Fax: | | | | | AND | | [phone] | | | | | REHABILITATI | [...] | | | | | | [place], | | | | | | | [place] | | | | | | | [address] | | | | | | | Phone: | | | | | | | [phone] | | | | | | | Fax: | | | | | | | [phone] | +--------+--------+ + + + + Encounter Details +--------+---------+ + + + | Date | Type | Department | Care Team | Description | +--------+---------+ + + + | 02/08/ | Office | Orthopaedics at | Jaswant Angeles MD | Shoulder Pain; | | 2007 | Visit | [facility] [address] | [address] | Unspecified | | | | Ave Mailcode: CH12A | [address] | Disorders of Bursae | | | | [place] for [facility] | [place], [place] | and Tendons in | | | | and Healing, | [address] | Shoulder Region | | | | | [phone] | | | | | Floor [place], [place] | | | | | | [address] | | | | | | [phone] | | | +--------+---------+ + + + [...] | | + +---------+ + + | [facility] DEPARTMENT OF | | | [...]
--- OUTSIDE RECORDS SUMMARY | ~2019-04-20 | XMS | Encounter Summary ---
Demographics + + + | Address | [address] | | | [place] [address] | + + + | Home Phone [...] + | Organization | [facility] | | | and [place] | [...] Team Providers + +------+ + | Care Maintenance Of Way Clerk Name | Role | Phone | + +------+ + | Dominic Carlin MD | PCP | | + +------+ + Encounter Details +--------+ + + + + | Date | Type | Department | Care Team | Description | +--------+ + + + + | 08/23/ | Hospital | [facility] | Haroldo King | S/P cervical spinal | | 2014 | Encounter | MED CTR XRAY [address] | [address] | fusion | | | | [place] | [address] | | | | | [place] [address] | [place] [address] | | | | | [phone] | | | | | | | [...] + | [facility] | [address] | [place] | [phone] | | [facility] | | [address] | | | - IMAGING | | | | + + + + + documented in this encounter Visit Diagnoses + + | Diagnosis | + + | S/P cervical spinal fusion Arthrodesis status | + + documented in this encounter"
--- OUTSIDE RECORDS SUMMARY | ~2019-04-20 | XMS | Encounter Summary ---
Demographics + + + | Address | [address] | | | [place] [address] | + + + | Home Phone [...] Author + + + | Author | [facility] | + + + | Organization | [facility] | + + + | Address | Unknown | + + + | Phone | Unavailable | + + + Support + + +---------+ + | Name | Relationship | Address | Phone | + + +---------+ + | Gautam Ray | ECON | Unknown | | + + +---------+ + Care Team Providers + +------+ + | Care Rock Star Name | Role | Phone | + [...] | 2008 | Visit | Center at [facility] [address] | [address] | Spinal Canal | | | | [address] | [address] [place], [place] | (Primary Dx) | | | | Mailcode: CH8N | [address] | | | | | [facility] | | | | | | and Healing, | | | | | | Building | | | | | | Floor [place], [place] | | | | | | [address] | | | | | | [phone] | | | +--------+---------+ + + + [...]
--- OUTSIDE RECORDS SUMMARY | ~2019-04-20 | XMS | Encounter Summary ---
Demographics + + + | Address | [address] | | | [place] [address] | + + + | Home Phone | | + + + | Preferred Language | Unknown | + + + | Marital Status | Single | + + + | Zoroastrianism Affiliation | Unknown | + + + | Race | or | + + + | Ethnic Group | Not or | + + + Author + + + | Author | [facility] | + + + | Organization | [facility] | + + + | Address | Unknown | + + + | Phone | Unavailable | + + + Support + + +---------+ + | Name | Relationship | Address | Phone | + + +---------+ + | Gautam Ray | ECON | Unknown | | + + +---------+ + Care Team Providers + +------+ + | Care Export Freight Specialist Name | Role | Phone | [...] Rd | | | | | | [place], [place] | | | | | | [address] | | | +--------+ + + + [...]
--- OUTSIDE RECORDS SUMMARY | ~2019-04-20 | XMS | Encounter Summary ---
Demographics + + + | Address | [address] | | | [place] [address] | + + + | Home Phone [...] Organization | [facility] | | | and [...] + +------+ + | Care Director Of Science Name | Role | Phone | + [...] [place] | | | | | | [address] | | | | | | [phone] | | | +--------+ + + + [...]
--- OUTSIDE RECORDS SUMMARY | ~2019-04-20 | XMS | Encounter Summary ---
Demographics + + + | Address | [address] | | | [place] [address] | + + + | Home Phone [...] Organization | [facility] | | [...] Team Providers + +------+ + | Care Printing Machine Operator Name | Role | Phone | + +------+ + PCP | Unavailable | + +------+ + Encounter Details +--------+ + + + + | Date | Type | Department | Care Team | Description | +--------+ + + + + | 11/24/ | Hospital | [facility] | Conversion | | | 2005 - | Encounter | CENTER SURGICAL [address] | Transaction, | | | | | KIMBERLY [address]ULL[address]AN | Provider Unknown | | | 11/25/ | | [place] | [phone] | | | 2005 | | [address] | (Fax) | | | | | [phone] | | | +--------+ + + + [...]
--- OUTSIDE RECORDS SUMMARY | ~2019-04-20 | XMS | Encounter Summary ---
Demographics + + + | Address | [address] | | | [place] [address] | + + + | Home Phone [...] + + | Author | [facility] | | | and [place] | + + + | Organization | [facility] | | | and [...] Team Providers + +------+ + | Care Driver Utility Worker Name | Role | Phone | [...] | | | | [address] | [facility] | | | | | [place], [place] | [address] [place], | | | | | [address] | [place] [address] | | | | | [phone] | [phone] | | | | | | | [...] Performed At | + + + | [id number] [facility] | | | [facility] [address] | | | , RADIOLOGY | | | Patient Name: ISA OSMAN Date of : 1945 | | | Medical Record: [id number] Account: [id number] O/P// | | | Exam Date/Time: 08/31/2009 04:15 P Ordering | | | Provider: NELL MUSE Detail: 1430 / / [facility] Exam | | | Description: MRI LUMBAR [...] exiting right L1 nerve root. There is bsrz-ry-vmatiiit left neural | | | foraminal narrowing. [...] lateral | | | recesses. There is grynpaph-hl-rtcfbt right and severe left neural | | [...] | bilateral L4 nerve roots. There is acehsfdm-yi-shnqzh left and severe | | | right [...] AP dimension. There is severe left and pqvpdava-gk-dybkkt right | | | neural foraminal narrowing that is likely impinging on the exiting | | | bilateral L4 nerve roots. L5-S1: There is disk desiccation with | | | cizaksxz-jj-iubdli disk space narrowing and associated degenerative | [...] greatest on the left side. There is iwtcyskj-pv-losmpp right | | | with severe left [...] and L5 nerve roots. 3. Please see srkar-rp-zcnub | | | discussion above. Read by AUDRA WILKINS DO | | | 09/02/2009 11:17 A Electronically Signed by AUDRA WILKINS DO | | | 09/02/2009 09:09 P A | | | 04:03 P BALBINA/brisa/[id number]/ cc: MD AUDRA PAIGE | | | DO [place] | | + + + + + | Procedure Note | + + | [place], Rad Conversion - 01/08/2019 4:40 PM PDT | | [id number] | | [facility] | | [place] [address] | | , | | RADIOLOGY | | | | Patient Name: ISA OSMAN | | Date of : 1945 | | Medical Record: [id number] | | Account: [id number] | | O/P// | | | | [...] exiting right L1 nerve root. There is sbgq-kb-aiihsfrf left neural | | foraminal narrowing. | [...] narrowing of both lateral recesses. There is ygxnvken-yr-zyphue right | | and severe left neural [...] L4 nerve roots. There is | | ldxeypux-nq-hgzano left and severe right neural foraminal narrowing [...] AP dimension. There is severe left and hdqurjgb-sc-iqvlfa right | | neural foraminal narrowing that is likely impinging on the exiting | | bilateral L4 nerve roots. | | | | L5-S1: There is disk desiccation with dzfoiubs-su-uradxw disk space | | narrowing and associated [...] greatest on the left side. There is pqcgnbfn-yz-okhoyz | | right with severe left neural [...] nerve roots. | | 3. Please see khwwa-sl-sdvqt discussion above. | | | | | | | | | | | | | | Read by | | AUDRA WILKINS DO 09/02/2009 11:17 A | | Electronically Signed by | | AUDRA WILKINS DO 09/02/2009 09:09 P | | | | A | | P | | BALBINA/brisa/[id number]/ | | cc: NELL MUSE MD | | AUDRA WILKINS DO | + + documented in this encounter Visit Diagnoses + + | Diagnosis | + + | Backache, unspecified | + + documented in this encounter"
--- OUTSIDE RECORDS SUMMARY | ~2019-04-20 | XMS | Encounter Summary ---
Demographics + + + | Address | [address] | | | [place] [address] | + + + | Home Phone [...] Author + + + | Author | [facility] | + + + | Organization [...] Team Providers + +------+ + | Care Vehicle Body Sander Name | Role | Phone | + [...] | | | | | | | [address] | | | | | | | Phone: | | | | | | | [phone] | | | | | | | Fax: | | | | | | | [phone] | +--------+--------+ + + + + Encounter [...] [address], | | | | | [facility] | [place] [address] | | | | | and Healing, | [phone] | | | | | Building | | | | | | Floor [place], [place] | | | | | | [address] | | | | | | [phone] | | | +--------+ + + + [...] data and waveforms have been scanned into [employer]og[employer]. The summary is as follows: Motor Nerve [...] | + + +--------+ + + | [place] MUSCLE TEST, ONE | Procedures | Routin | Carpal Tunnel | Ordered: 04/17/2008 | | LIMB | | e | Syndrome Ulnar | | | | | | Neuritis Cervical | | | | | | Radiculitis | | + + +--------+ + + | VT MOTOR NERVE | Procedures | Routin | Carpal Tunnel | Ordered: 04/17/2008 | | CONDUCT TEST, W | | e | Syndrome Ulnar | | | F-WAVE | | | Neuritis Cervical | | | | | | Radiculitis | | + + +--------+ + + | [place] NERVE | Procedures | Routin | Carpal [...]
--- OUTSIDE RECORDS SUMMARY | ~2019-04-20 | XMS | Encounter Summary ---
Demographics + + + | Address | [address] | | | [place] [address] | + + + | Home Phone [...] | Organization | [facility] | [...] Team Providers + +------+ + | Care Senior Telecommunications Consultant Name | Role | Phone | [...] | MD [address] | [address] | | | | | spondylosis | [address] | [place], | | | | | with | [place], | [place] | | | | | myelopathy | [place] [address] | [address] | | | | | Cervical | Phone: | Phone: | | | | | cord | [phone] | [phone] | | | | | myelomalacia | Fax: | Fax: | | | | | (HCC) | [phone] | [phone] | | | | | Degenerative | [...] | | | | | with | [facility], | [place] | | | | | myelopathy | [place] [address] | [address] | | | | | Cervical | Phone: | Phone: | | | | | cord | [phone] | [phone] | | | | | myelomalacia | Fax: | Fax: | | | | | ([facility]) | [phone] | [phone] | | | | | Degenerative | [...] | with myelopathy; | | | | [address] [place], | [place] [address] | Cervical cord | | | | [place] [address] | [phone] | myelomalacia ([facility]); | | | | [phone] | | Degenerative disc | | | [...] | in the cervical cord at the I6fqwoy.2. Multilevel degenerative disc and spondylitic | | [...] + | MISCELLANEOUS LAB | | | [phone] | + +---------+ + + | MISCELANIOUS LAB | | | [phone] | + +---------+ + + documented in this encounter Visit Diagnoses + + | Diagnosis | + + | Cervical spondylosis with myelopathy | + + | Cervical cord myelomalacia (HCC) Other myelopathy | + + | Degenerative disc disease, cervical Degeneration of cervical intervertebral disc | + + documented in this encounter"
--- OUTSIDE RECORDS SUMMARY | ~2019-04-20 | XMS | Encounter Summary ---
Demographics + + + | Address | [address] | | | [place] [address] | + + + | Home Phone [...] Organization | [facility] | | | and [...] Team Providers + +------+ + | Care Straightener Gun Parts Name | Role | Phone | + [...] [address] | | | | | | [place] | | | | | | [address] | | | | | | [phone] | | | +--------+ + + + [...]
--- OUTSIDE RECORDS SUMMARY | ~2019-04-20 | XMS | Encounter Summary ---
Demographics + + + | Address | [address] | | | [place] [address] | + + + | Home Phone [...] Organization | [facility] | | | and [place] | [...] Team Providers + +------+ + | Care Target Developer Name | Role | Phone | [...] | | | | | [facility] [address] | [place] [address] | | | | | [place] | [phone] | | | | | [address] | | | | | | [phone] | | | +--------+ + + + [...]
--- OUTSIDE RECORDS SUMMARY | ~2019-04-20 | XMS | Encounter Summary ---
Demographics + + + | Address | [address] | | | [place] [address] | + + + | Home Phone [...] + | Author | [facility] | + + + | Organization | [facility] | + + + | Address | Unknown | + + + | Phone | Unavailable | + + + Support + + +---------+ + | Name | Relationship | Address | Phone | + + +---------+ + | Gautam Ray | ECON | Unknown | | + + +---------+ + Care Team Providers + +------+ + | Care Racing Driver Name | Role | Phone | [...] | | | | and tendons | [facility] | [facility] | | | | | in shoulder | Rd | Rd [place], | | | | | region, | [place], [place] | [place] | | | | | unspecified | [address] | [phone] | | | | | Procedures | Phone: | Phone: | | | | | CONSULT TO | [phone] | [phone] | | | | | ORTHOPEDICS | Fax: | Fax: | | | | | AND | [phone] | [phone] | | | | | REHABILITATI | [...] | | | | | | [place], | | | | | | | [place] | | | | | | | [address] | | | | | | | Phone: | | | | | | | [phone] | | | | | | | Fax: | | | | | | | [phone] | +--------+--------+ + + + + Encounter Details +--------+---------+ + + + | Date | Type | Department | Care Team | Description | +--------+---------+ + + + | 04/19/ | Office | Orthopaedics at | Jaswant Angeles MD | Unspecified | | 2007 | Visit | [facility] [address] | [address] | Disorders of Bursae | | | | Ave Mailcode: CH12A | [address] | and Tendons in | | | | [place] for [facility] | [place], [place] | Shoulder Region | | | | and Healing, | [address] | (Primary Dx) | | | | | [phone] | | | | | Floor [place], [place] | | | | | | [address] | | | | | | [phone] | | | +--------+---------+ + + + [...]
--- OUTSIDE RECORDS SUMMARY | ~2019-04-20 | XMS | Encounter Summary ---
Demographics + + + | Address | [address] | | | [place] [address] | + + + | Home Phone [...] | Organization | [facility] | | | and [place] [...] Team Providers + +------+ + | Care Engineer Technical Staff Name | Role | Phone | + +------+ + | Dominic Carlin MD | PCP | | + +------+ + Encounter Details +--------+ + + + + | Date | Type | Department | Care Team | Description | +--------+ + + + + | 07/11/ | Preadmit | [facility] | Wes Melvin MD | Cervical cord | | 2015 | Visit | [facility] | [address] | myelomalacia (HCC); | | | | CLINIC [address] | [place] [address] | Cervical spondylosis | | | | [place] | [phone] | with myelopathy; | | | | [address] | | Essential | | | | [...] + | [facility] | [address] | [place], [place] | [phone] | | [facility] | | [address] | | | - LABORATORY | | | | + + + + + | [facility] | [address] | [place], [place] | | | [facility] | | [address] | | | - LABORATORY | | [...] | 0.77 | 0.60 - 1.30 | [facility] | | | | | mg/dL | [facility] | | | | | | [facility] | | | | | | CENTER - | | | | | | LABORATORY | | + + + + + + | eGFR if not | >60Comment: GLOMERULAR | >=60 | [facility] | | | | FILTRATION | mL/min/1.73m2 | [facility] | | | MALIAN | RATE,ESTIMATED | | MEDICAL | | | | mL/min/1.56u8Owsk than | | CENTER - | | [...] + + + + + | [facility] | [address] | [place], [place] | [phone] | | [facility] | | [address] | | | - LABORATORY | | | | + + + + + | [facility] | [address] | [place], [place] | | | [facility] | | [address] | | | - LABORATORY | | [...]
--- OUTSIDE RECORDS SUMMARY | ~2019-04-20 | XMS | Encounter Summary ---
Demographics + + + | Address | [address] | | | [place] [address] | + + + | Home Phone [...] + | Organization | [facility] [...] Team Providers + +------+ + | Care Vocational Trainer Name | Role | Phone | + [...] | | [address] | [place] [address] | | | | | [place] | [phone] | | | | | [address] | | | | | | [phone] | | | +--------+ + + + [...]
--- OUTSIDE RECORDS SUMMARY | ~2019-04-20 | XMS | Encounter Summary ---
Demographics + + + | Address | [address] | | | [place] [address] | + + + | Home Phone [...] Author + + + | Author | [facility] | + + + | Organization | [facility] | + + + | Address | Unknown | + + + | Phone | Unavailable | + + + Support + + +---------+ + | Name | Relationship | Address | Phone | + + +---------+ + | Gautam Ray | ECON | Unknown | | + + +---------+ + Care Team Providers + +------+ + | Care Agile Java Developer Name | Role | Phone | [...] | | | | | | [place], | | | | | | | [place] | | | | | | | [address] | | | | | | | Phone: | | | | | | | [phone] | | | | | | | Fax: | | | | | | | [phone] | +--------+--------+ + + + + Encounter Details +--------+---------+ + + + | Date | Type | Department | Care Team | Description | +--------+---------+ + + + | 06/14/ | Office | Orthopaedics at | Jaswant Angeles MD | Unspecified | | 2008 | Visit | [facility] [address] | [address] | Disorders of Bursae | | | | Ave Mailcode: CH12A | [address] | and Tendons in | | | | [facility] | [place], [place] | Shoulder Region; | | | | and Healing, | [address] | Radicular Syndrome | | | | Building | [phone] | of [place] Limbs | | | | Floor [place], [place] | | | | | | [address] | | | | | | [phone] | | | +--------+---------+ + + + [...]
--- OUTSIDE RECORDS SUMMARY | ~2019-04-20 | XMS | Encounter Summary ---
Demographics + + + | Address | [address] | | | [place] [address] | + + + | Home Phone [...] | Organization | [facility] | | [...] Providers + +------+ + | Care Fire Coordinator Name | Role | Phone | + +------+ + | Dominic Carlin MD | PCP | | + +------+ + Encounter Details +--------+ + + + + | Date | Type | Department | Care Team | Description | +--------+ + + + + | 01/19/ | [facility] | [facility] | Wes Melvin MD | Spinal stenosis; | | 2013 | Encounter | MED CTR XRAY [address] | [address] | Neck pain | | | | [place] | [place] [address] | | | | | [place] [address] | [phone] | | | | | [phone] | | | +--------+ + + + [...] COMPARISON: CERVICAL MRI MAY 16, 2013 FROM [facility] | LAB | | [facility] FINDINGS: An AP view and lateral [...] PAINCOMPARISON: CERVICAL MRI MAY 16, 2013 FROM [facility] | | MEDICAL CENTERFINDINGS: An AP [...] + | MISCELLANEOUS LAB | | | [phone] | + +---------+ + + | MISCELANIOUS LAB | | | [phone] | + +---------+ + + documented in this encounter Visit Diagnoses + + | Diagnosis | + + | Spinal stenosis Spinal stenosis, unspecified region other than cervical | + + | Neck pain Cervicalgia | + + documented in this encounter"
[~2019-04-20 12:30] MED LIST changes: +MECLIZINE HCL25 MG PO
--- OUTSIDE RECORDS SUMMARY | 2019-04-20 12:32 | XMS ---
PreManage Notification: ISA OSMAN Security Travel Counselor Events No recent Security Events currently on file CRITERIA MET - [facility] - 2 Visits in 30 Days CARE PROVIDERS There are no care providers on record at this time. Rupa has no Care Guidelines for this patient. Richard VISIT COUNT (12 MO.) [address] [facility] TOTAL 2 NOTE: Visits indicate total known visits. ED/C VISIT TRACKING (12 MO.) 04/20/2019 12:31 [facility] [place] TYPE: Emergency COMPLAINT: - HIGH BLOOD PRESSURE 04/17/2019 18:[address] [facility] [place] TYPE: Emergency COMPLAINT: - DIZZINESS DIAGNOSES: - Essential (primary) hypertension - Dizziness and giddiness - Personal history of nicotine dependence - Hyperlipidemia, unspecified - Prsnl hx of TIA (TIA), and cereb infrc w/o resid deficits INPATIENT VISIT TRACKING (12 MO.) No inpatient visits to display in this time frame [email or web address]
== END 2019-04-20 13:47 | disposition home or self-care (01) ==
LOC: ED 12:30
DX: R42 Dizziness and giddiness (principal); I10 Essential (primary) hypertension; E78.5 Hyperlipidemia, unspecified; Z86.73 Personal history of transient ischemic attack (TIA), and cerebral infarction without residual deficits; Z87.891 Personal history of nicotine dependence; Z79.899 Other long term (current) drug therapy
CPT/HCPCS: 99283

== ENCOUNTER 2019-11-26 20:55 | Emergency (ER) | payer MEDICARE, OTHER ==
[~2019-11-26] VITALS: Ht 170.2 cm; Wt 91.2 kg
[2019-11-26] MEDS ORDERED: LISINOPRIL20 MG PO (21:08)
[2019-11-26] MEDS ORDERED: TYLENOL325 MG PO (21:09)
== END 2019-11-27 00:10 | disposition home or self-care (01) ==
LOC: ED 20:55
DX: S09.90XA Unspecified injury of head, initial encounter (principal); I10 Essential (primary) hypertension; E78.5 Hyperlipidemia, unspecified; Z86.73 Personal history of transient ischemic attack (TIA), and cerebral infarction without residual deficits; Z87.891 Personal history of nicotine dependence; Z79.899 Other long term (current) drug therapy; W22.8XXA Striking against or struck by other objects, initial encounter
CPT/HCPCS: 70450; 71045; 72125; 99284-25

== ENCOUNTER 2019-12-22 21:47 | Inpatient (IN) | payer MEDICARE, OTHER ==
[~2019-12-22] VITALS: Ht 170.2 cm; Wt 86.7 kg
--- OUTSIDE RECORDS SUMMARY | ~2019-12-22 | XMS | Encounter Summary ---
Demographics + + + | Address | [address] | | | [place] [address] | + + + | Home Phone | | + + + | Preferred Language | Unknown | + + + | Marital Status | Single | + + + | Spiritism Affiliation | 1041 | + + + | Race | Unknown | + + + | Ethnic Group | Unknown | + + + Author + + + | Author | [facility] | | | and [place] | + + + | Organization | [facility] | | | and [place] | + + + | Address | Unknown | + + + | Phone | Unavailable | + + + Support + + +---------+ + | Name | Relationship | Address | Phone | + + +---------+ + | Breanne Burns | ECON | Unknown | | + + +---------+ + Care Team Providers + +------+ + | Care Commercial Housekeeper Name | Role | Phone | + +------+ + PCP | Unavailable | + +------+ + Encounter Details +--------+ + + + + | Date | Type | Department | Care Team | Description | +--------+ + + + + | 08/31/ | Hospital | [facility] | Joe, | Unspecified Backache | | 2009 | Encounter | [facility] [address] | MD Danii | | | | | [address] | | | | | | [place] | | | | | | [address] | | | | | | [phone] | | | +--------+ + + + + Social History + +-------+ +--------+------+ | Tobacco Use | Types | Packs/Day | Years | Date | | | | | Used | | + +-------+ +--------+------+ | Never Assessed | | | | | + +-------+ +--------+------+ + + + | Sex Assigned at | Date Recorded | | | | + + + | Not on file | | + + + documented as of this encounter Plan of Treatment +--------+ + + + + | Date | Type | Specialty | Care Team | Description | +--------+ + + + + | 12/26/ | Appointment | Radiology | | | | 2019 | | | | | +--------+ + + + + | 12/26/ | Office | Vascular Surgery | Salvador Jose MD | | | 2019 | Visit | | [address] | | | | | | [address] | | | | | | [place] [address] | | | | | | [phone] | | | | | | | | +--------+ + + + + | 03/13/ | Office | Neurology | Veronica, | | | 2019 | Visit | | [address] | | | | [address] [place], | | | | | | [place] [address] | | | | | | [phone] | | | | | | | | +--------+ + + + + documented as of this encounter Procedures + +--------+ + + + | Procedure Name | Priori | Date/Time | Associated Diagnosis | Comments | | | ty | | | | + +--------+ + + + | MRI LUMBAR SPINE WO | Routin | 08/31/2009 | | Results for this | | CONTRAST | e | 4:30 PM | | procedure are in the | | | | PDT | | results section. | + +--------+ + + + documented in this encounter Results MRI Lumbar Spine wo Contrast (08/31/2009 4:30 PM PDT) + + | Specimen | + + | | + + + + + | Narrative | Performed At | + + + | [id number] [facility] | | | [facility] [address] | | | , RADIOLOGY | | | Patient Name: ISA OSMAN Date of : 1945 | | | Medical Record: [id number] Account: [id number] O/P// | | | Exam Date/Time: 08/31/2009 04:15 P Ordering | | | Provider: DANII MUSE Detail: 1430 / / R Exam | | | Description: MRI LUMBAR SPINE UNENHANCED | | | | | | MRI LUMBAR SPINE WITHOUT ENHANCEMENT 08/31/2009 HISTORY Back pain | | | with bilateral lower extremity numbness/weakness. TECHNIQUE | | | Multiplanar, multisequence MRI of the lumbar spine was obtained on a | | | 1.5 Shireen MR scanner. COMPARISON Compared to 08/09/2005 and | | | 05/21/2000. FINDINGS There is a mild dextroconvex scoliotic | | | curvature of the lumbar spine. There is a mild grade 1 anterior | | | spondylolisthesis of L5 on S1 and L4 on L5 with mild grade 1 | | | retrolisthesis of L3 on L4 and L2 on L3, all of approximately 3 mm. | | | The conus medullaris is normal in caliber and signal, and terminates | | | at the level of L1. There is disk desiccation with mild disk space | | | narrowing at T11-T12 without disk herniation, central canal | | | stenosis, or neural foraminal narrowing. T12-L1: There is disk | | | desiccation with mild disk space narrowing. There is a broad-based | | | small central disk protrusion without significant central canal | | | stenosis or neural foraminal narrowing. L1-L2: There is disk | | | desiccation with moderate disk space narrowing and associated | | | degenerative endplate change greatest on the right side. There is a | | | diffuse disk bulge that is asymmetric to the right side along with | | | mild degenerative facet and ligamentum flavum hypertrophy causing | | | moderate right neural foraminal narrowing approaching/contacting the | | | exiting right L1 nerve root. There is lgrd-vc-evxibwxq left neural | | | foraminal narrowing. L2-L3: There is disk desiccation with disk | | | space narrowing and associated degenerative endplate change. There is | | | mild retrolisthesis of L2 on L3. There is a posterior disk/spur | | | complex along with bilateral facet and ligamentum flavum hypertrophy | | | causing mild central canal stenosis with the thecal sac measuring | | | approximately 12 x 12 mm. There is narrowing of both lateral | | | recesses. There is qfjedwru-zd-tdxcoe right and severe left neural | | | foraminal narrowing likely impinging on the exiting bilateral L2 | | | nerve roots. Neural foraminal narrowing has progressed since the | | | previous examination. The is postsurgical change with suggestion of a | | | right hemilaminectomy. L3-L4: There is disk desiccation with disk | | | space narrowing and associated degenerative endplate change. There | | | is mild retrolisthesis of L3 on L4. There is a posterior disk/spur | | | complex along with bilateral degenerative facet disease, greatest on | | | the right side causing mild central canal stenosis with the thecal | | | sac measuring approximately 10 mm in AP dimension. There is narrowing | | | of both lateral recesses that approaches/contacts the traversing | | | bilateral L4 nerve roots. There is otrmgppp-qx-sagfam left and severe | | | right neural foraminal narrowing likely impinging upon the exiting | | | L3 nerve roots. L4-L5: There is a grade 1 anterior | | | spondylolisthesis of L4 on L5. There is a grade 1 anterior | | | spondylolisthesis of L4 on L5. There is disk desiccation with disk | | | space narrowing and associated degenerative endplate change. There is | | | a posterior disk/spur complex with advanced bilateral facet and | | | ligamentum flavum hypertrophy causing severe central canal stenosis | | | predominantly in the transverse dimension with the thecal sac | | | measuring approximately 4 mm in the transverse dimension x 8 mm in | | | the AP dimension. There is severe left and ihzfgqay-gp-txhuoc right | | | neural foraminal narrowing that is likely impinging on the exiting | | | bilateral L4 nerve roots. L5-S1: There is disk desiccation with | | | gemxzjde-eg-babvxo disk space narrowing and associated degenerative | | | endplate change. Mild grade 1 anterior spondylolisthesis of L5 on S1. | | | There is uncovering of the disk with mild, diffuse disk bulge | | | asymmetric to the left side, along with bilateral degenerative facet | | | disease. There is at least moderate central canal stenosis greatest | | | in the transverse dimension along the superior margin of the disk | | | space, predominantly from the advanced degenerative facet disease | | | from the level above. There is asymmetric narrowing of the lateral | | | recess, greatest on the left side. There is pfubgfeo-fi-nmqcuo right | | | with severe left neural foraminal narrowing. IMPRESSION 1. | | | Multilevel degenerative changes of the lumbar spine with interval | | | progression. There is severe central canal stenosis at L4-L5 | | | primarily in the transverse dimension from advanced degenerative | | | facet disease. This extends inferior to the L5-S1 level where the | | | central canal stenosis is more moderate in nature. There is mild | | | central canal stenosis at L2-L3 and L3-L4. 2. There is multilevel | | | neural foraminal narrowing as described above that is advanced | | | from L2 through S1, possibly impinging on the exiting bilateral | | | L2, L3, L4, and L5 nerve roots. 3. Please see ohenu-cg-nlbhu | | | discussion above. Read by AUDRA WILKINS DO | | | 09/02/2009 11:17 A Electronically Signed by AUDRA WILKINS DO | | | 09/02/2009 09:09 P A | | | 04:03 P BALBINA/brisa/[id number]/ cc: MD AUDRA PAIGE R | | | DO CLAUDETTE | | + + + + + | Procedure Note | + + | Chun Colón Conversion - 01/08/2019 4:40 PM PDT | | [id number] | | [facility] | | [facility] [address] | | , | | RADIOLOGY | | | | Patient Name: ISA OSMAN | | Date of : 1945 | | Medical Record: [id number] | | Account: [id number] | | O/P// | | | | | | Exam Date/Time: 08/31/2009 04:15 P | | Ordering Provider: DANII MUSE | | Order Detail: 1430 / / HMR | | Exam Description: MRI LUMBAR SPINE UNENHANCED | | | | MRI LUMBAR SPINE WITHOUT ENHANCEMENT 08/31/2009 | | | | HISTORY | | Back pain with bilateral lower extremity numbness/weakness. | | | | TECHNIQUE | | Multiplanar, multisequence MRI of the lumbar spine was obtained on a 1.5 | | Shireen MR scanner. | | | | COMPARISON | | Compared to 08/09/2005 and 05/21/2000. | | | | FINDINGS | | There is a mild dextroconvex scoliotic curvature of the lumbar spine. | | There is a mild grade 1 anterior spondylolisthesis of L5 on S1 and L4 on | | L5 with mild grade 1 retrolisthesis of L3 on L4 and L2 on L3, all of | | approximately 3 mm. The conus medullaris is normal in caliber and | | signal, and terminates at the level of L1. | | | | There is disk desiccation with mild disk space narrowing at T11-T12 | | without disk herniation, central canal stenosis, or neural foraminal | | narrowing. | | | | T12-L1: There is disk desiccation with mild disk space narrowing. There | | is a broad-based small central disk protrusion without significant | | central canal stenosis or neural foraminal narrowing. | | | | L1-L2: There is disk desiccation with moderate disk space narrowing and | | associated degenerative endplate change greatest on the right side. | | There is a diffuse disk bulge that is asymmetric to the right side along | | with mild degenerative facet and ligamentum flavum hypertrophy causing | | moderate right neural foraminal narrowing approaching/contacting the | | exiting right L1 nerve root. There is ccyp-km-zvwrnguy left neural | | foraminal narrowing. | | | | L2-L3: There is disk desiccation with disk space narrowing and | | associated degenerative endplate change. There is mild retrolisthesis of | | L2 on L3. There is a posterior disk/spur complex along with bilateral | | facet and ligamentum flavum hypertrophy causing mild central canal | | stenosis with the thecal sac measuring approximately 12 x 12 mm. There | | is narrowing of both lateral recesses. There is vexqzgqz-vp-bkcwzz right | | and severe left neural foraminal narrowing likely impinging on the | | exiting bilateral L2 nerve roots. Neural foraminal narrowing has | | progressed since the previous examination. The is postsurgical change | | with suggestion of a right hemilaminectomy. | | | | L3-L4: There is disk desiccation with disk space narrowing and | | associated degenerative endplate change. There is mild retrolisthesis of | | L3 on L4. There is a posterior disk/spur complex along with bilateral | | degenerative facet disease, greatest on the right side causing mild | | central canal stenosis with the thecal sac measuring approximately 10 mm | | in AP dimension. There is narrowing of both lateral recesses that | | approaches/contacts the traversing bilateral L4 nerve roots. There is | | nccnunww-vg-djyyvq left and severe right neural foraminal narrowing | | likely impinging upon the exiting L3 nerve roots. | | | | L4-L5: There is a grade 1 anterior spondylolisthesis of L4 on L5. There | | is a grade 1 anterior spondylolisthesis of L4 on L5. There is disk | | desiccation with disk space narrowing and associated degenerative | | endplate change. There is a posterior disk/spur complex with advanced | | bilateral facet and ligamentum flavum hypertrophy causing severe central | | canal stenosis predominantly in the transverse dimension with the thecal | | sac measuring approximately 4 mm in the transverse dimension x 8 mm in | | the AP dimension. There is severe left and uebsejdf-xl-nshbmg right | | neural foraminal narrowing that is likely impinging on the exiting | | bilateral L4 nerve roots. | | | | L5-S1: There is disk desiccation with jhrmkzel-nx-vhtsav disk space | | narrowing and associated degenerative endplate change. Mild grade 1 | | anterior spondylolisthesis of L5 on S1. There is uncovering of the disk | | with mild, diffuse disk bulge asymmetric to the left side, along with | | bilateral degenerative facet disease. There is at least moderate central | | canal stenosis greatest in the transverse dimension along the superior | | margin of the disk space, predominantly from the advanced degenerative | | facet disease from the level above. There is asymmetric narrowing of the | | lateral recess, greatest on the left side. There is vfjnbuky-qw-hzdhuf | | right with severe left neural foraminal narrowing. | | | | IMPRESSION | | 1. Multilevel degenerative changes of the lumbar spine with interval | | progression. There is severe central canal stenosis at L4-L5 | | primarily in the transverse dimension from advanced degenerative | | facet disease. This extends inferior to the L5-S1 level where the | | central canal stenosis is more moderate in nature. There is mild | | central canal stenosis at L2-L3 and L3-L4. | | 2. There is multilevel neural foraminal narrowing as described above | | that is advanced from L2 through S1, possibly impinging on the | | exiting bilateral L2, L3, L4, and L5 nerve roots. | | 3. Please see byhkb-cs-yxrdu discussion above. | | | | | | | | | | | | | | Read by | | AUDRA WILKINS DO 09/02/2009 11:17 A | | Electronically Signed by | | AUDRA WILIKNS DO 09/02/2009 09:09 P | | | | A | | P | | BALBINA/brisa/[id number]/ | | cc: DANII MUSE MD | | AUDRA WILKINS DO | + + documented in this encounter Visit Diagnoses + + | Diagnosis | + + | Backache, unspecified | + + documented in this encounter"
--- OUTSIDE RECORDS SUMMARY | ~2019-12-22 | XMS | Encounter Summary ---
Demographics + + + | Address | [address] | | | [place] [address] | + + + | Home Phone | | + + + | Preferred Language | Unknown | + + + | Marital Status | Single | + + + | Baptist Affiliation | 1041 | + + + | Race | Unknown | + + + | Ethnic Group | Unknown | + + + Author + + + | Author | [facility] | | | and [place] | + + + | Organization | [facility] | | | and [place] | + + + | Address | Unknown | + + + | Phone | Unavailable | + + + Support + + +---------+ + | Name | Relationship | Address | Phone | + + +---------+ + | Breanne Grant | ECON | Unknown | | + + +---------+ + Care Team Providers + +------+ + | Care Fire Investigation Manager Name | Role | Phone | + +------+ + | Dominic Carlin MD | PCP | | + +------+ + Encounter Details +--------+ + + + + | Date | Type | Department | Care Team | Description | +--------+ + + + + | 07/11/ | Hospital | [facility] | Wes Melvin MD | Cervical cord | | 2015 | Encounter | MED CTR XRAY [address] | myelomalacia (HCC); | | | | [place] | [place] [address] | Cervical spondylosis | | | | [place] [address] | [phone] | with myelopathy; | | | | [phone] | | Essential | | | | | | hypertension; High | | | | | | cholesterol; | | | | | | Preoperative | | | | | | clearance | +--------+ + + + + Social History + +-------+ +--------+------+ | Tobacco Use | Types | Packs/Day | Years | Date | | | | | Used | | + +-------+ +--------+------+ | Never Smoker | | | | | + +-------+ +--------+------+ + +---+---+---+ | Smokeless Tobacco: | | | | | Never Used | | | | + +---+---+---+ + + +---------+ + | Alcohol Use | Drinks/Week | oz/Week | Comments | + + +---------+ + | Yes | | | 1 drink every 2 | | | | | weeks | + + +---------+ + + + + | Sex Assigned at | Date Recorded | | | | + + + | Not on file | | + + + documented as of this encounter Medications at Time of Discharge + + + +---------+ + + | Medication | Sig | Dispensed | Refills | Start | End Date | | | | | | Date | | + + + +---------+ + + | cyclobenzaprine | Take 1 tablet by | 90 | 3 | 07/28/19 | | | (FLEXERIL) 10 mg | mouth every 8 hours | tablet | | 15 | 9 | | tablet | as needed for Muscle | | | | | | | spasms. | | | | | + + + +---------+ + + | | Take 1-2 tablets by | 120 | 0 | 07/28/19 | | | HYDROcodone-acetamin | mouth every 4 hours | tablet | | 15 | 9 | | ophen (NORCO) 5-325 | as needed for Pain. | | | | | | mg per tablet | | | | | | + + + +---------+ + + | ibuprofen (ADVIL, | Take 400 mg by mouth | | 0 | | | | MOTRIN) 400 mg | every 6 hours as | | | | 5 | | tablet | needed. | | | | | + + + +---------+ + + | lactulose 10 g/15 | Take 30 mLs by mouth | 240 mL | 0 | 07/28/19 | | | mL solution | Daily as needed for | | | 15 | 5 | | | up to 10 days. | | | | | + + + +---------+ + + documented as of this encounter Plan of Treatment +--------+ + + + + | Date | Type | Specialty | Care Team | Description | +--------+ + + + + | 12/26/ | Appointment | Radiology | | | | 2020 | | | | | +--------+ + + + + | 12/26/ | Office | Vascular Surgery | Salvador Jose MD | | | 2019 | Visit | | [address] | | | | | | [address] [facility] | | | | | | [place] [address] | | | | | | [phone] | | | | | | | | +--------+ + + + + | 03/13/ | Office | Neurology | Veronica, | | | 2019 | Visit | | [address] | | | | | | [address] [facility], | | | | | | [place] [address] | | | | | | [phone] | | | | | | | | +--------+ + + + + documented as of this encounter Procedures + +--------+ + + + | Procedure Name | Priori | Date/Time | Associated Diagnosis | Comments | | | ty | | | | + +--------+ + + + | XR CHEST PA AND | Routin | 07/11/2014 | Cervical cord | Results for this | | LATERAL | e | 10:51 AM | myelomalacia (HCC) | procedure are in the | | | | PST | Cervical spondylosis | results section. | | | | | with myelopathy | | | | | | Essential | | | | | | hypertension High | | | | | | cholesterol | | | | | | Preoperative | | | | | | clearance | | + +--------+ + + + documented in this encounter Results XR Chest PA and Lateral (07/11/2014 10:51 AM PST) + + | Specimen | + + | | + + + + + | Narrative | Performed At | + + + | XR CHEST PA AND LATERAL 07/11/2014 10:51 AM HISTORY: preoperative | [facility] | | clearance. COMPARISON: None. Findings: Heart size is at the | [facility] | | upper limits of normal. There is atherosclerosis of the aorta. | [facility] | | Mediastinum is unremarkable. Mild scarring is in the lung bases. Mild | - IMAGING | | elevation of the left hemidiaphragm is seen. The bilateral lungs are | | | clear otherwise with no evidence for pleural effusion or | | | pneumothorax. Extensive spondylosis is visualized of the thoracic | | | spine with bridging osteophytes that has the appearance of diffuse | | | idiopathic skeletal hyperostosis (DISH). IMPRESSION - No acute | | | findings. Dictated and Signed by: Lloyd Sher MD | | | Electronically signed: 07/11/2014 1:36 PM | | + + + + + | Procedure Note | + + | [place], Rad Results In - 07/11/2014 1:39 PM PST XR CHEST PA AND LATERAL 07/11/2014 10:51 | | AMHISTORY: preoperative clearance.COMPARISON: None.Findings:Heart size is at the upper | | limits of normal. There is atherosclerosis of theaorta. Mediastinum is unremarkable. | | Mild scarring is in the lung bases. Mildelevation of the left hemidiaphragm is seen. The | | bilateral lungs are clearotherwise with no evidence for pleural effusion or | | pneumothorax. Extensivespondylosis is visualized of the thoracic spine with bridging | | osteophytes thathas the appearance of diffuse idiopathic skeletal hyperostosis | | (DISH).IMPRESSION -No acute findings.Dictated and Signed by: Lloyd Sher MD | | Electronically signed: 07/11/2014 1:36 PM | |elevation of the left hemidiaphragm is seen. The bilateral lungs are clear | |otherwise with no evidence for pleural effusion or pneumothorax. Extensive | |spondylosis is visualized of the thoracic spine with bridging osteophytes that | |has the appearance of diffuse idiopathic skeletal hyperostosis (DISH). | | | |IMPRESSION - | |No acute findings. | | | |Dictated and Signed by: Lloyd Sher MD | | Electronically signed: 07/11/2014 1:36 PM | + + + + + + + | Performing | Address | City/State/Zipcode | Phone Number | | Organization | | | | + + + + + | [facility] | [address] | [place], [place] | [phone] | | [facility] | | [address] | | | - IMAGING | | | | + + + + + documented in this encounter Visit Diagnoses + + | Diagnosis | + + | Cervical cord myelomalacia (HCC) Other myelopathy | + + | Cervical spondylosis with myelopathy | + + | Essential hypertension Unspecified essential hypertension | + + | High cholesterol Pure hypercholesterolemia | + + | Preoperative clearance Preoperative examination, unspecified | + + documented in this encounter"
--- OUTSIDE RECORDS SUMMARY | ~2019-12-22 | XMS | Encounter Summary ---
Demographics + + + | Address | [address] | | | [place] [address] | + + + | Home Phone | | + + + | Preferred Language | Unknown | + + + | Marital Status | Single | + + + | Zoroastrianism Affiliation | 1041 | + + + | Race | Unknown | + + + | Ethnic Group | Unknown | + + + Author + + + | Author | [facility] | | | and [place] | + + + | Organization | [facility] | | | and [...] Team Providers + +------+ + | Care Wool Grower Name | Role | Phone | + +------+ + | Sydney Lennon | PCP | | + +------+ + Reason for Referral Diagnostic/Screening (Routine) + +--------+ + + + + | Status | Reason | Specialty | Diagnoses / | Referred By | Referred To | | | | | Procedures | Contact | Contact | + +--------+ + + + + | Pending | | Radiology | Diagnoses | Damon | [address] [address] | | Review | | | Carotid | Salvador Martin MD | [address] | | | | | stenosis, | [address] | | | | | bilateral | [address] | [address] | | | | | Procedures | [address] | [place], [place] | | | | | CT Angiogram | [place] | [address] | | | | | Head Neck w | [place], [place] | Phone: | | | | | Contrast | [address] | [phone] | | | | | | Phone: | Fax: | | | | | | [phone] | [phone] | | | | | | Fax: | | | | | | | [phone] | | + +--------+ + + + + Reason for Visit +---------+ + | Reason | Comments | +---------+ + | Consult | Carotid artery occlusion | +---------+ + Evaluate & Treat (Routine) +--------+--------+ + + + + | Status | Reason | Specialty | Diagnoses / | Referred By | Referred To | | | | | Procedures | Contact | Contact | +--------+--------+ + + + + | Closed | | Vascular | Diagnoses | Saji, | Damon, | | | | Surgery | Right | Sydney, PATHOLOGY SUPERVISOR | Salvador Martin MD | | | | | Carotid | [id number] | [address] | | | | | Artery | [address] | [address] | | | | | Occlusion - | [place], | [address] [place] | | | | | 85% | [place] [address] | [place], [place] | | | | | | Phone: | [phone] Phone: | | | | | | [phone] | [phone] | | | | | | Fax: | Fax: | | | | | | [phone] | [phone] | +--------+--------+ + + + + Encounter Details +--------+ + + + + | Date | Type | Department | Care Team | Description | +--------+ + + + + | 10/31/ | Virtual | [facility] | Salvador Jose MD | Carotid stenosis, | | 2019 | Office | VASCULAR SURGERY | [address] | bilateral (Primary | | | Visit | [address] | [address] [place] | Dx) | | | | E [place], [place] | [place] [address] | | | | | [address] | [phone] | | | | | [phone] | | | +--------+ + + + [...] + + documented as of this encounter Functional Status + + + + | Functional Status | Response | Date of Assessment | + + + + | Are you deaf or do you have serious | No | 07/27/2014 | | difficulty hearing? | | | + + + + | Are you blind or do you have serious | No | 07/27/2014 | | difficulty seeing, even when wearing | | | | glasses? | | | + + + + | Do you have serious difficulty walking or | No | 07/27/2014 | | climbing stairs? (5 years old or older) | | | + + + + | Because of a physical, mental, or emotional | No | 07/27/2014 | | condition, do you have difficulty doing | | | | errands alone such as visiting a doctor's | | | | office or shopping? [15 years old or | | | | older)] | | | + + + + + + + + | Cognitive Status | Response | Date of Assessment | + + + + | Because of a physical, mental, or emotional | No | 07/27/2014 | | condition, do you have serious difficulty | | | | concentrating, remembering, or making | | | | decisions? (5 years old or older) | | | + + + + documented as of this encounter Progress Notes Salvador Jose MD - 11/01/2019 11:00 AM PDTFormatting of this note might be different from t he original. Assessment & Plan Severe right carotid stenosis. Patient with hx of right sided MCA strokes. Had refused in tervention in the past. Was previously on ASA/plavix but now just taking ASA. I reviewed i guzman from April and patient would benefit from a right ICA intervention. Given imaging was >6 months ago I would like to get a repeat CTA to evaluate patency of right ICA. I add itionally, sent a prescription for him to restart on plavix. Both the patient and his siste r voiced understanding and are agreeable to the plan. Clinical discussion length: 11-20 min (21619) Patient has not been seen in office within the past 7 days, and outcome of this call is not to recommend soonest available office visit. Follow up Instructions: Will call patient once CTA has been completed. Subjective: Patient ID: Buck Bell is a 74 y.o. male. CC: Evaluation of bilateral carotid stenosis Participants: Patient and sister Participant verbally confirmed the choice to initiate care by, and consents to receive care by Telephone. Participant is currently at home HPI: The patient present for evaluation of his bilateral carotid stenosis. He is a patient of [facility] [place], [place]. He was seen at the ED at [facility] for headache and ne ck pain complaints in 04/2019 and during this time had a CTA Head and Neck performed. Result s showed "old left MCA tract infarction and small left HACKSAW INSPECTOR infarction and old left lacunar i nfarct in the right caudate head with right ICA stenosis but 50% in the cavernous region and 85% proximal ICA and left ICA has 50% stenosis." He then had follow up MRI brain on 0 which showed a large infarction involving the right temporal occipital and inferior cristal etal region, and left medial temporal occipital lobe. The patient was last seen by neurologi on 10/05 and was noted to have significant dementia and was not complaint with his medicat ions. His diagnosis and prognosis was reviewed with Veronica Jimenez, nurse practitioner and c ase communications program manager at [facility]. Given his recurrent dizziness and prev ious CTA findings, patient was referred to vascular surgery for evaluation. Today, the patient denies any new symptoms. Sounds like he has bilateral lower extremity w eakness which is unchanged from previous. He denies vision changes, isolated extremity weak ness, paralysis or fascial droop. Past Medical History: Diagnosis Date High blood pressure High cholesterol Hyperlipidemia Hypertension Stroke (HCC) Past Surgical History: Procedure Laterality Date APPENDECTOMY CARPAL TUNNEL RELEASE Both Hands 12/28 CERVICAL SPINE SURGERY N/A 07/26/2014 Procedure: C3-4, C4-5, C5-6, C6-7 Anterior Cervical Discectomy Fusion; Surgeon: Wes Elmore am, MD; Location: [facility] MAIN OR OTHER SURGICAL HISTORY UNLISTED PROCEDURE ARTHROSCOPY - Bilateral Rotator Cuff ROTATOR CUFF REPAIR Bilateral SPINE SURGERY 2010 Cervical Surgery TONSILLECTOMY AND ADENOIDECTOMY Social History Socioeconomic History Marital status: Single Spouse name: Not on file Number of children: Not on file Years of education: Not on file Highest education level: Not on file Tobacco Use Smoking status: Never Smoker Smokeless tobacco: Never Used Substance and Sexual Activity Alcohol use: Yes Comment: 1 drink every 2 weeks Drug use: No Comment: Drug use: No Attending Note: Documentation assistance provided by Daljit Abdi). Information re corded by the scribe has been reviewed and validated by me. I agree with its contents. Signed by: Daljit Solis, Wyattibotilio 11/01/19, 11:03 AM PDT Salvador Jose MD Vascular Surgery documented in this encou nter Plan of Treatment +--------+ + + + [...] | | | | | [address] [facility] | | | | | | [place] [address] | | | | | | [phone] | | | | | | | | +--------+ + + + + | 03/13/ | Office | Neurology | Veronica, | | | 2019 | Visit | | [address] | | | | | [address] [place], | | | | | | [place] [address] | | | | | | [phone] | | | | | | | | +--------+ + + + + + +---------+--------+ + + | Name | Type | Priori | Associated Diagnoses | Order Schedule | | | | ty | | | + +---------+--------+ + + | CT Angiogram Head | Imaging | Routin | Carotid stenosis, | Expected: | | Neck w Contrast | | e | bilateral | 11/01/2019, Expires: | | | | | | 10/31/2020 | + +---------+--------+ + + | Creatinine | Lab | Routin | Carotid stenosis, | 1 Occurrences | | | | e | bilateral | starting 11/01/2019 | | | | | | until 10/31/2020 | + +---------+--------+ + + documented as of this encounter Visit Diagnoses + + | Diagnosis | + + | Carotid stenosis, bilateral - Primary Occlusion and stenosis of multiple and | | bilateral precerebral arteries without mention of cerebral infarction | + + documented in this encounter
--- OUTSIDE RECORDS SUMMARY | ~2019-12-22 | XMS | Encounter Summary ---
Demographics + + + | Address | [address] | | | [place] [address] | + + + | Home Phone | | + + + | Preferred Language | Unknown | + + + | Marital Status | Single | + + + | Hinduism Affiliation | 1041 | + + + | Race | Unknown | + + + | Ethnic Group | Unknown | + + + Author + + + | Author | [facility] | | | and [place] | + + + | Organization | [facility] | | | and [place] | + + + | Address | Unknown | + + + | Phone | Unavailable | + + + Support + + +---------+ + | Name | Relationship | Address | Phone | + + +---------+ + | Breanne Merrickjessa | ECON | Unknown | | + + +---------+ + Care Team Providers + +------+ + | Care Wind Turbine Electrical Engineer Name | Role | Phone | + +------+ + | Sydney Lennon | PCP | | + +------+ + Reason for Visit +--------+--------+ + | Reason | Onset | Comments | | | Date | | +--------+--------+ + | Other | 11/08/ | thoughts on the CT | | | 2020 | | +--------+--------+ + Encounter Details +--------+ + + + + | Date | Type | Department | Care Team | Description | +--------+ + + + + | 11/08/ | Telephone | [facility] | Salvador Jose MD | Other (thoughts on | | 2019 | | VASCULAR SURGERY | [address] | the CT) | | | | [address] | [address] [facility] | | | | | E [place], [place] | [place] [address] | | | | | [address] | [phone] | | | | | [phone] | | | +--------+ + + + [...] + + documented as of this encounter Miscellaneous Notes Telephone Encounter - Yazmin Jesus RN - 11/09/2019 4:00 PM PDTReturn call made to Fidelina ramos, patient scheduled for follow up with Dr Jose on 11/15/2019 at 10:30 am. elephone Encounter - Nisa Blackmon - 11/09/2019 3:47 PM PDTElenita, is returning call for Other (thoughts on the CT) and would like a call back. Additional Call Details: Returning call, states that 7.1 appointment works. Please leave a ppointment time on voicemail at [phone] elephone Yazmin Alonzo RN - 11/09/2019 3:15 PM PDTReturn call made to Veronica. Per Dr Jose , he would like patient to come into clinic to go over CT results. Patient will need caroti d endarterectomy done. Request call back from Veronica to schedule patient for follow up appoi ntment. elephone Ryann Smith - 11/09/2019 10:46 AM PDTJulie, is calling regarding Other (tho ughts on the CT) and would like a call back. Additional Call Details: Please call the number provided. If this is a symptom based call, was patient offered triage? Not Applicable If this is a symptom based call and you were unable to immediately transfer the call to a brandon jane motorboat mechanic helper was caller made aware that if at any time he feels it is an emergency they gilda uld call 911 or go to the nearest emergency room? not applicable documented in this encounter Plan of Treatment +--------+ + [...] | | | | | | [address] [facility] | | | | | | [place] [address] | | | | | | [phone] | | | | | | | | +--------+ + + + + | 03/13/ | Office | Neurology | Veronica, | | | 2019 | Visit | | [address] | | | | [address] [place], | | | | | | [place] [address] | | | | | | [phone] | | | | | | | | +--------+ + + + + documented as of this encounter Visit Diagnoses Not on filedocumented in this encounter"
--- OUTSIDE RECORDS SUMMARY | ~2019-12-22 | XMS | Encounter Summary ---
Demographics + + + | Address | [address] | | | [place] [address] | + + + | Home Phone | | + + + | Preferred Language | Unknown | + + + | Marital Status | Single | + + + | Uatsdin Affiliation | 1041 | + + + | Race | Unknown | + + + | Ethnic Group | Unknown | + + + Author + + + | Author | [facility] | | | and [place] | + + + | Organization | [facility] | | | and [...] Team Providers + +------+ + | Care Dice Table Operator Name | Role | Phone | + +------+ + | Dominic Carlin MD | PCP | | + +------+ + Reason for Referral Evaluate & Treat (Routine) +--------+ + + + + + | Status | Reason | Specialty | Diagnoses / | Referred By | Referred To | | | | | Procedures | Contact | Contact | +--------+ + + + + + | Closed | Specialty | Physical | Diagnoses | [place] | | | | Services | Therapy | Cervical | Haroldo | | | | Required | | spondylosis | AMOR Rodriguez | | | | | | with | [address] | | | | | | myelopathy | [address]VE | | | | | | Degenerative | [place] | | | | | | disc | [address] | | | | | | disease, | Phone: | | | | | | cervical | [phone] | | | | | | Cervical | Fax: | | | | | | cord | [phone] | | | | | | myelomalacia | | | | | | | ([facility]) S/P | | | | | | | cervical | | | | | | | spinal | | | | | | | fusion | | | +--------+ + + + + + Reason for Visit + + + | Reason | Comments | + + + | Follow-up | Post op | + + + Encounter Details +--------+---------+ + + + | Date | Type | Department | Care Team | Description | +--------+---------+ + + + | 08/23/ | Office | [facility] | Haroldo King | Cervical spondylosis | | 2015 | Visit | NEUROSURGERY [address] | AM[address] | with myelopathy | | | | [address] [place], [place] | (Primary Dx); | | | | [place], [place] | [address] | Degenerative disc | | | | [address] | | disease, cervical; | | | | [phone] | | Cervical cord | | | | | | myelomalacia ([facility]); | | | | | | S/P cervical spinal | | | | | | fusion | +--------+---------+ + + + Social History + +-------+ [...] + + documented as of this encounter Last Filed Vital Signs + + + + + | Vital Sign | Reading | Time Taken | Comments | + + + + + | Blood Pressure | 162/86 | 08/23/2014 11:25 AM | | | | | PDT | | + + + + + | Pulse | 78 | 08/23/2014 11:25 AM | | | | | PDT | | + + + + + | Temperature | - | - | | + + + + + | Respiratory Rate | 16 | 08/23/2014 11:25 AM | | | | | PDT | | + + + + + | Oxygen Saturation | - | - | | + + + + + | Inhaled Oxygen | - | - | | | Concentration | | | | + + + + + | Weight | 93.4 kg (206 lb) | 08/23/2014 11:25 AM | | | | | PDT | | + + + + + | Height | 170.2 cm (5' 7") | 08/23/2014 11:25 AM | | | | | PDT | | + + + + + | Body Mass Index | 32.26 | 08/23/2014 11:25 AM | | | | | PDT | | + + + + + documented in this encounter Functional Status + + + [...] + + documented as of this encounter Patient Instructions Patient Instructions Haroldo King PA - 08/23/2014 11:41 AM PDTAt this time you can increase your activities allowing lifting up to 15 pounds. In the next week or 2 you can b egin slowly weaning your collar.. I would like you to start with physical therapy over the next 2 weeks. We will see you back in approximately 2 months with x-raysElectronically sign ed by NICKOLAS Schuster at 08/23/2014 11:42 AM PDT documented in this encounter Progress Notes Haroldo King PA - 08/23/2014 11:45 AM PDTFormatting of this note might be differen t from the original. NICKOLAS Ponce [address] [facility], [address] [place], [place] [address] FAX: NEUROSURGERY SURGICAL FOLLOW-UP CHIEF COMPLAINT: Chief Complaint Patient presents with Follow-up Post op HISTORY OF PRESENT ILLNESS: The patient is a 69 y.o. male that had a cervical fusion for m yelopathy around 4 weeks ago. He returns and overall is doing well. The patient complains of very little lip this time. He notices that he has significant improvement in his leg sym ptoms. He is able to walk without a shuffling gait. He has improved range of motion of his leg as well as strengthen his legs. He feels like he is has improved strength in his arms on both sides. He is very extremely happy with the way that he feels. The patient has been walking as much as possible and has been following their restrictions overall. The patient has had no issues with his surgical site. So far issues with swallowing have not been a si gnificant problem. He has not had major issues with hoarseness. CURRENT MEDICATIONS: Current Outpatient Prescriptions Medication Sig Dispense Refill cyclobenzaprine (FLEXERIL) 10 mg tablet Take 1 tablet by mouth every 8 hours as needed for Muscle spasms. 90 tablet 3 HYDROcodone-acetaminophen (NORCO) 5-325 mg per tablet Take 1-2 tablets by mouth every 4 hours as needed for Pain. 120 tablet 0 No current facility-administered medications for this visit. ALLERGIES: No Known Allergies SOCIAL HISTORY: The patient reports that he has never smoked. He has never used smokeless tobacco. He repo rts that he drinks alcohol. He reports that he does not use illicit drugs. INTERIM PHYSICAL EXAMINATION: Blood pressure 162/86, pulse 78, resp. rate 16, height 1.702 m (5' 7"), weight 93.441 kg (2 06 lb). Body mass index is 32.26 kg/(m^2). GENERAL: Buck Bell is in no acute distress with unlabored respirations. HEENT: HEAD/FACE: Normocephalic and atraumatic. There are no areas of recent trauma. SPINE: The patient s incision is healing well. There is not significant erythema or disc harge. NEUROLOGICAL EXAMINATION: MENTAL STATUS: The patient is awake, alert, and oriented. He follows simple and complex commands MOTOR EXAM: Motor strength is 4+/5 right tricep and 4+/5 in left bicep. This is improved f rom the preoperative exam. SENSORY EXAM: The sensory examination improved from the preoperative exam. REFLEXES: Reflexes are unchanged from his preoperative history and physical. RADIOGRAPHIC REVIEW: The patient s postoperative x-rays show stable instrumentation and alignment and were rev iewed with the patient today. There have been no interval changes since the immediate posto perative films. Complete fusion has not yet occurred, but this is normal and would not be e xpected at this time. ASSESSMENT: S/P cervical fusion for: Encounter Diagnoses Name Primary? Cervical spondylosis with myelopathy Yes Degenerative disc disease, cervical Cervical cord myelomalacia (HCC) S/P cervical spinal fusion Past Medical History Diagnosis Date High blood pressure High cholesterol PLAN: Overall, the patient is doing well. The part time to recovery will take many months and pe rhaps years. Hopefully, we will see further improvement over time. I increased the patient s activities today allowing 15 pound lifting. I would like the patient to advance slowly with this process and discussed this at length. I would also like the patient to continue with postoperative rehabilitation and to advance with independent or directed therapy as tolerated. So far, things are progressing as planned. The patient will follow-up with me in around 8 weeks for re-evaluation. ELECTRONICALLY SIGNED BY: NICKOLAS Ponce, 08/23/2014 11:45 documented in th is encounter Plan of Treatment +--------+ + + [...] | | | | | [facility] | | | | | | [place] [address] | | | | | | [phone] | | | | | | | | +--------+ + + + + | 03/13/ | Office | Neurology | Veronica, | | | 2019 | Visit | | HALI [address] | | | | | | [address] [facility] [place], | | | | | | [place] [address] | | | | | | [phone] | | | | | | | | +--------+ + + + + + + +--------+ + + | Name | Type | Priori | Associated Diagnoses | Order Schedule | | | | ty | | | + + +--------+ + + | OUTPATIENT PT | Outpatient | Routin | Cervical | Ordered: 08/23/2014 | | EXTERNAL | Referral | e | spondylosis with | | | | | | myelopathy | | | | | | Degenerative disc | | | | | | disease, cervical | | | | | | Cervical cord | | | | | | myelomalacia (HCC) | | | | | | S/P cervical spinal | | | | | | fusion | | + + +--------+ + + documented as of this encounter Results XR CERVICAL SPINE 2 OR 3 VIEWS (12/25/2014 7:38 AM PDT) + + | Specimen | + + | | + + + + + | Narrative | Performed At | + + + | XR CERVICAL SPINE 2 OR 3 VIEWS 12/25/2014 7:38 AM HISTORY: | [facility] | | Postop. COMPARISON: Multiple priors. FINDINGS: Visualized | . [facility] | | skull base and facial structures demonstrate no acute findings. | [facility] | | Prevertebral soft tissues are normal. Again seen are hardware for | - IMAGING | | anterior fusion from C3 through C7 with interbody graft material at | | | these levels. The hardware remains intact. There are moderate | | | degenerative changes of the anterior atlantoaxial joint. Moderate | | | spondylosis is observed of C2 as well as at C7 and T1. Bone | | | mineralization is normal. The dens is normal. Vertebral body height | | | are preserved with no evidence for compression fractures. Disc height | | | are maintained. Multilevel facet sclerosis and hypertrophy are | | | present. Visualized upper chest demonstrates no acute findings. Mild | | | right and moderate left soft tissue calcifications are seen, likely | | | atherosclerosis. IMPRESSION - Stable anterior fusion from C3 | | | through C7. Dictated and Signed by: Lloyd Sher MD | | | Electronically signed: 12/25/2014 10:37 AM | | + + + + + | Procedure Note | + + | [place], Rad Results In - 12/25/2014 10:40 AM PDT XR CERVICAL SPINE 2 OR 3 VIEWS | | 12/25/2014 7:38 AMHISTORY: Postop.COMPARISON: Multiple priors.FINDINGS:Visualized skull | | base and facial structures demonstrate no acute findings.Prevertebral soft tissues are | | normal.Again seen are hardware for anterior fusion from C3 through C7 with | | interbodygraft material at these levels. The hardware remains intact. There are | | moderatedegenerative changes of the anterior atlantoaxial joint. Moderate spondylosis | | isobserved of C2 as well as at C7 and T1. Bone mineralization is normal. The densis | | normal. Vertebral body height are preserved with no evidence for compressionfractures. | | Disc height are maintained. Multilevel facet sclerosis andhypertrophy are present. | | Visualized upper chest demonstrates no acute findings.Mild right and moderate left soft | | tissue calcifications are seen, likelyatherosclerosis.IMPRESSION -Stable anterior fusion | | from C3 through C7.Dictated and Signed by: Lloyd Sher MD Electronically signed: | | 12/25/2014 10:37 AM | |observed of C2 as well as at C7 and T1. Bone mineralization is normal. The dens | |is normal. Vertebral body height are preserved with no evidence for compression | |fractures. Disc height are maintained. Multilevel facet sclerosis and | |hypertrophy are present. Visualized upper chest demonstrates no acute findings. | |Mild right and moderate left soft tissue calcifications are seen, likely | |atherosclerosis. | | | |IMPRESSION - | |Stable anterior fusion from C3 through C7. | | | |Dictated and Signed by: Lloyd Sher MD | | Electronically signed: 12/25/2014 10:37 AM | + + + + + + + | Performing | Address | City/State/Zipcode | Phone Number | | Organization | | | | + + + + + | [facility] | [address] | [place] | [phone] | | [facility] | | [address] | | | - IMAGING | | | | + + + + + documented in this encounter Visit Diagnoses + + | Diagnosis | + + | Cervical spondylosis with myelopathy - Primary | + + | Degenerative disc disease, cervical Degeneration of cervical intervertebral disc | + + | Cervical cord myelomalacia (HCC) Other myelopathy | + + | S/P cervical spinal fusion Arthrodesis status | + + documented in this encounter
--- OUTSIDE RECORDS SUMMARY | ~2019-12-22 | XMS | Encounter Summary ---
Demographics + + + | Address | [address] | | | [place] [address] | + + + | Home Phone | | + + + | Preferred Language | Unknown | + + + | Marital Status | Single | + + + | Jehovah'S Witness Affiliation | 1041 | + + + | Race | Unknown | + + + | Ethnic Group | Unknown | + + + Author + + + | Author | [facility] | | | and [place] | + + + | Organization | [facility] | | | [...] Team Providers + +------+ + | Care Collections Curator Name | Role | Phone | + [...] | | | | | disc | [address] | | | | | | disease, | Phone: | | | | | | cervical | [phone] | | | | | | Cervical | Fax: | | | | | | cord | [phone] | | | | | | myelomalacia | | | | | | | ([facility]) S/P | | | | | | [...] + + | 08/23/ | Office | [facility] | Haroldo King | Cervical spondylosis | | 2015 | 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 NICKOLAS Ponce [address] [facility], [address] [place], [place] [address] FAX: NEUROSURGERY SURGICAL FOLLOW-UP CHIEF COMPLAINT: Chief [...] Overall, the patient is doing well. 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 | [place] | [phone] | | [facility] | | [address] | | | - IMAGING | | [...]
--- OUTSIDE RECORDS SUMMARY | ~2019-12-22 | XMS | Encounter Summary ---
Demographics + + + | Address | [address] | | | [place] [address] | + + + | Home Phone | | + + + | Preferred Language | Unknown | + + + | Marital Status | Single | + + + | Religion Affiliation | 1041 | + + + | Race | Unknown | + + + | Ethnic Group | Unknown | + + + Author + + + | Author | [facility] | | | and [place] | + + + | Organization | [facility] | | | and [...] Team Providers + +------+ + | Care Component Assembler Name | Role | Phone | + [...] Closed | | Radiology | Diagnoses | Saji | Nia Mri | | | | | Neck pain | HALI Grimes | [address] | | | | | Other | [address] | [place], | | | | | secondary | [address] | [place] | | | | | kyphosis, | [place], | [address] | | | | | cervical | [place] [address] | Phone: | | | | | region | Phone: | [phone] | | | | | Cervical | [phone] | Fax: | | | | | spinal | Fax: | [phone] | | | | | stenosis | [phone] | | | | | | Procedures [...] Closed | | Radiology | Diagnoses | Wilbur, | [facility] | | | | | Neck pain | HALI Grimes | [address] | | | | | Other | [address] | [place], | | | | | secondary | [address] | [place] | | | | | kyphosis, | [place], | [address] | | | | | cervical | [place] [address] | Phone: | | | | | region | Phone: | [phone] | | | | | Cervical | [phone] | Fax: | | | | | spinal | Fax: | [phone] | | | | | stenosis | [phone] | | | | | | Procedures [...] | +--------+ + + + + | 05/22/ | Hospital | [facility] | Sydney Lennon, | Neck pain; Other | | 2020 | Encounter | [facility] [address] | [employer]URE [employer] [address] [address] | secondary kyphosis, | | | | [address] [place], | [address] [place], [place] | cervical region; | | | | [place] [address] | [address] | Cervical spinal | | | | [phone] | | stenosis | +--------+ + + + + Social [...] + + + +---------+ + + | amLODIPine | Take 10 mg by mouth | | 0 | | | | (NORVASC) 10 MG | daily. | | | | | | tablet | | | | | | + + + +---------+ + + | aspirin 81 MG | Take 81 mg by mouth | | 0 | | | | tablet | daily. | | | | | + + + +---------+ + + | atorvaSTATin | Take 80 mg by mouth | | 0 | | | | (LIPITOR) 80 MG | daily. | | | | | | tablet | | | | | | + + + +---------+ + + | | Take 2 tablets by | 45 | 0 | 12/12/20 | | | butalbital-acetamino | mouth every 4 hours | tablet | | 19 | | | phen (ALLZITAL) | as needed for | | | | | | 25-325 mg per tablet | Headaches. | | | | | + + + +---------+ + + | lisinopril | Take 10 mg by mouth | | 0 | | | | (PRINIVIL, ZESTRIL) | daily. | | | | | | 10 mg tablet | | | | | | + + + +---------+ + + | meclizine | Take 25 mg by mouth | | 0 | | | | (ANTIVERT) 25 mg | 3 times daily as | | | | | | tablet | needed. | | | | | + + + +---------+ + + | promethazine | Take 1 tablet by | 30 | 0 | 04/27/20 | | | (PHENERGAN) 25 mg | mouth every 6 hours | tablet | | 19 | | | tablet | as needed. | | | | | + + + +---------+ + + | clopidogrel | Take 1 tablet by | | 0 | 12/17/19 | | | (PLAVIX) 75 mg | mouth daily. | | | 16 | 0 | | tablet | | | | | | [...] | | | | | [address] [facility] | | | | | | [place] [address] | | | | | | [phone] | | | | | | | | +--------+ + + + + | 03/13/ | Office | Neurology | Veronica, | | | 2019 | Visit | | HALI Adams [address] | | | | [address] [place], | | | | | | [place] [address] | | | | | | [phone] | | | | | | | | +--------+ + + + + + +---------+--------+ + + | Name | Type | Priori | Associated Diagnoses | Order Schedule | | | | ty | | | + +---------+--------+ + + | MRI Cervical Spine | Imaging | Routin | Neck pain Other | 1 Occurrences | | wo Contrast | | e | secondary kyphosis, | starting 05/22/2019 | | | | | cervical region | until 05/22/2019 | | | | | Cervical spinal | | | | | | stenosis | | + +---------+--------+ + + documented as of this encounter Visit Diagnoses + + | Diagnosis | + + | Neck pain Cervicalgia | + + | Other secondary kyphosis, cervical region | + + | Cervical spinal stenosis Spinal stenosis in cervical region | + + documented in this encounter"
--- OUTSIDE RECORDS SUMMARY | ~2019-12-22 | XMS | Clinical Summary ---
Demographics + + + | Address | [address] | | | [place] [address] | + + + | Home Phone | | + + + | Preferred Language | Unknown | + + + | Marital Status | Single | + + + | Yazidi Affiliation | 1041 | + + + | Race | Unknown | + + + | Ethnic Group | Unknown | + + + Author + + + | Author | [facility] | | | and [place] | + + + | Organization | [facility] [...] Team Providers + +------+ + | Care Clinical Research Specialist Name | Role | Phone | + +------+ + | Sydney Lennon | PCP | | + +------+ + Allergies No Known Allergies Medications + + + +---------+------+------+-------+ | Medication | Sig | Dispensed | Refills | Star | End | Statu | | | | | | t | Date | s | | | | | | Date | | | + + + +---------+------+------+-------+ | amLODIPine | Take 10 mg by mouth | | 0 | | | Activ | | (NORVASC) 10 MG | daily. | | | | | e | | tablet | | | | | | | + + + +---------+------+------+-------+ | aspirin 81 MG | Take 81 mg by mouth | | 0 | | | Activ | | tablet | daily. | | | | | e | + + + +---------+------+------+-------+ | atorvaSTATin | Take 80 mg by mouth | | 0 | | | Activ | | (LIPITOR) 80 MG | daily. | | | | | e | | tablet | | | | | | | + + + +---------+------+------+-------+ | lisinopril | Take 10 mg by mouth | | 0 | | | Activ | | (PRINIVIL, ZESTRIL) | daily. | | | | | e | | 10 mg tablet | | | | | | | + + + +---------+------+------+-------+ | meclizine | Take 25 mg by mouth | | 0 | | | Activ | | (ANTIVERT) 25 mg | 3 times daily as | | | | | e | | tablet | needed. | | | | | | + + + +---------+------+------+-------+ | | Take 2 tablets by | 45 | 0 | 12/1 | | Activ | | butalbital-acetamino | mouth every 4 hours | tablet | | 2/20 | | e | | phen (ALLZITAL) | as needed for | | | 19 | | | | 25-325 mg per tablet | Headaches. | | | | | | + + + +---------+------+------+-------+ | promethazine | Take 1 tablet by | 30 | 0 | 12/1 | | Activ | | (PHENERGAN) 25 mg | mouth every 6 hours | tablet | | 2/20 | | e | | tablet | as needed. | | | 19 | | | + + + +---------+------+------+-------+ | acetaminophen | Take 650 mg by mouth | | 0 | | | Activ | | (TYLENOL) 325 mg | every 4 hours as | | | | | e | | tablet | needed for Pain. | | | | | | + + + +---------+------+------+-------+ | cyanocobalamin | Take 1,000 mcg by | | 0 | | | Activ | | (VITAMIN B-12) 500 | mouth Daily. | | | | | e | | mcg tablet | | | | | | | + + + +---------+------+------+-------+ | cholecalciferol | Take 125 mcg by | | 0 | | | Activ | | (VITAMIN D-3) 125 | mouth Daily. | | | | | e | | mcg (5,000 units) | | | | | | | | tablet | | | | | | | + + + +---------+------+------+-------+ | clopidogrel | Take 1 tablet by | | 0 | 08/0 | 07/1 | Disco | | (PLAVIX) 75 mg | mouth daily. | | | 2/20 | 920 | ntinu | | tablet | | | | 16 | 20 | ed | + + + +---------+------+------+-------+ | Aspirin | Take 81 mg by mouth. | | 0 | | 07/1 | Disco | | Buf,GoWjmd-ZqFehn-Mj | | | | | 9/20 | ntinu | | O, 81 MG TABS | | | | | 20 | ed | + + + +---------+------+------+-------+ | clopidogrel | Take 1 tablet by | 90 | 3 | 06/1 | 07/1 | Disco | | (PLAVIX) 75 mg | mouth Daily. | tablet | | 7/20 | 0/20 | ntinu | | tablet | | | | 20 | 20 | ed | | | | | | | | (Erro | | | | | | | | r) | + + + +---------+------+------+-------+ | cephalexin | Take 1 tablet by | 14 | 0 | 07/2 | 08/0 | Expir | | (KEFLEX) 500 MG TABS | mouth 2 times daily | tablet | | 7/20 | 3/20 | ed | | | for 7 days. | | | 20 | 20 | | + + + +---------+------+------+-------+ Active Problems + + + | Problem | Noted Date | + + + | Pre-diabetes | 12/13/2019 | + + + | Dementia | 12/13/2019 | + + + | Fatigue | 12/13/2019 | + + + | Carotid stenosis, right | 11/15/2019 | + + + + + | Overview: Added automatically from request for surgery | | [id number] Angio of head and neck October 2019 shows mild to moderate | | right greater than left intracranial ICA atherosclerotic | | narrowing. Mild to moderate narrowing of the intracranial | | anterior circulation, worst along the left M1 segment, as | | described above. Severe narrowing of bilateral IT CONSULTANT P3 segments, | | as noted, with lesser degrees of narrowing throughout the | | remainder the posterior circulation, as described. No | | intracranial proximal arterial occlusion, aneurysm, or | | arteriovenous malformation. Mild to moderate narrowing of the | | proximal subclavian arteries. The proximal cervical vertebral | | arteries are secured by artifact from the cervical ACDF. The | | cervical vertebral arteries are otherwise unremarkable in | | appearance. Potentially greater than 90% narrowing of the right | | ICA origin, difficult to assess due to extensive calcification. | | Further evaluation with conventional angiogram is recommended to | | further assess, as clinically warranted. No cervical left carotid | | artery stenosis/occlusion or dissection. Carotid US November 2019 | | shows patent post right carotid endarterectomy, without stenosis. | | Postoperative hematoma/seroma. Some technical limitations, | | distal vessels are not seen well. 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 Mild LAE. RA NML. Mild RVE | | with preserved systolic function. 3. Mitral valve has mild | | nodular calcification, mild MAC, trace MR. Aortic, Tricuspid, | | and Pulmonic valves grossly NML. No /AI. Trace TR. 4. No | | Pericardial effusion. 5. IVC appears NML, inadequate TR to | | estimate PAP. 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 | + + + + + | Benign essential hypertension | 10/06/2019 | + + + + + | Overview: Feb 26, 2016 Entered By: SARA RANDHAWA | | Comment: got Lisinopril from provider in [place] | + + + + + | Dizziness | 10/06/2019 | + + + + + | Overview: Feb 26, 2016 Entered By: SARA RANDHAWA | | Comment: had MRI with [place] provider and it is OKOct , | | 2015 Entered By: SARA RANDHAWA Comment: Take meclizine as | | needed | + + + + + | Degeneration of intervertebral disc | 10/06/2019 | + + + + + | Overview: Mar 01, 2016 Entered By: SARA RANDHAWA | | Comment: C spine surgery with Dr. Melvin in 08/2013 | + + + + + | Carotid artery stenosis | 03/09/2016 | + + + + + | Overview: Mar 21, 2016 Entered By: SARA RANDHAWA | | Comment: u/s 03/09/16: 50- 69% stenosis on the right. left side: | | no significant stenosis. Pt denied symptom. 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 | + + + | Occipital stroke | 12/24/2015 | + + + | Visual hallucinations | 12/24/2015 | + + + | Secondary hypertension with goal blood pressure less than 130/80 | 12/24/2015 | + + + | Hyperlipidemia | 12/24/2015 | + + + | S/P cervical spinal fusion | 08/23/2014 | + + + | Cervical spondylosis with myelopathy | 01/19/2014 | + + + | Cervical cord myelomalacia | 01/19/2014 | + + + | Degenerative disc disease, cervical | 01/19/2014 | + + + | High blood pressure | | + + + | High cholesterol | | + + + Encounters +--------+ + + + + | Date | Type | Specialty | Care Team | Description | +--------+ + + + + | 12/19/ | Telephone | Vascular Surgery | Salvador Jose MD | Imaging (question ) | | 2019 | | | | | +--------+ + + + + | 12/14/ | Telephone | Vascular Surgery | Yazmin Jesus, | Follow-up | | 2019 | | | RN | | +--------+ + + + + | 12/12/ | Office | Vascular Surgery | Salvador Jose MD | Carotid stenosis, | | 2019 | Visit | | | symptomatic, with | | | | | | infarction (HCC) | | | | | | (Primary Dx) | +--------+ + + + + | 12/12/ | Hospital | Radiology | | Carotid stenosis, | | 2019 | Encounter | | | right | +--------+ + + + + | 12/10/ | Orders Only | Vascular Surgery | María Elena Chairez DNP | | | 2019 | | | | | +--------+ + + + + | 12/05/ | Telephone | Vascular Surgery | Yazmin Jesus, | Follow-up | | 2019 | | | RN | | +--------+ + + + + | 12/03/ | Telephone | Vascular Surgery | Yazmin Jesus, | Follow-up | | 2019 | | | RN | | +--------+ + + + + | 11/30/ | Anesthesia | | Allison Segura, | | | 2019 | Event | | MD | | +--------+ + + + + | 11/30/ | Surgery | | Salvador Jose MD | CAROTID | | 2019 | | | | ENDARTERECTOMY | +--------+ + + + + | 11/30/ | Hospital | Internal Medicine | Salvador Jose MD | Carotid stenosis, | | 2019 - | Encounter | | | right; Carotid | | | | | | stenosis, right | | 12/02/ | | | | | | 2019 | | | | | +--------+ + + + + | 11/23/ | Hospital | Cardiology | Salvador Jose MD | Pre-op testing | | 2019 | Encounter | | | | +--------+ + + + + | 11/23/ | Preadmit | Pre-Admission | Salvador Jose MD | Pre-op testing | | 2019 | Visit | Testing | | (Primary Dx) | +--------+ + + + + | 11/19/ | Orders Only | Vascular Surgery | María Elena Chairez DNP | COVID-19 ruled out | | 2019 | | | | (Primary Dx) | +--------+ + + + + | 11/14/ | Office | Vascular Surgery | Salvador Jose MD | Carotid stenosis, | | 2019 | Visit | | | bilateral (Primary | | | | | | Dx) | +--------+ + + + + | 11/14/ | Telephone | Vascular Surgery | Salvador Jose MD | Procedure (11/24/19) | | 2019 | | | | | +--------+ + + + + | 11/14/ | Orders Only | Vascular Surgery | Tomasa Jose, | Carotid stenosis, | | 2019 | | | PAOttoniel | right (Primary Dx) | +--------+ + + + + | 11/13/ | Imaging | Radiology | Leesa, | | | 2019 | Exam | | MD Kathy | | +--------+ + + + + | 11/13/ | Imaging | Radiology | Provider, | | | 2019 | Exam | | MD Kathy | | +--------+ + + + + | 11/08/ | Telephone | Vascular Surgery | Salvador Jose MD | Other (thoughts on | | 2019 | | | | the CT) | +--------+ + + + + | 11/05/ | Telephone | Vascular Surgery | Salvador Jose MD | Other (Appointment | | 2019 | | | | Notes Request) | +--------+ + + + + | 10/31/ | Virtual | Vascular Surgery | Salvador Jose MD | Carotid stenosis, | | 2019 | Office | | | bilateral (Primary | | | Visit | | | Dx) | +--------+ + + + + | 10/29/ | Telephone | Vascular Surgery | Salvador Jose MD | Paperwork | | 2019 | | | | | +--------+ + + + + | 10/23/ | Telephone | Vascular Surgery | Salvador Jose MD | Consult | | 2019 | | | | | +--------+ + + + + | 10/12/ | Telephone | Neurology | Luan Gamble MD | Dementia | | 2019 | | | | | +--------+ + + + + | 10/11/ | Telephone | Neurology | Luan Gamble MD | Consultation | | 2019 | | | | | +--------+ + + + + | 10/05/ | Office | Neurology | Luan Gamble MD | Dizziness (Primary | | 2019 | Visit | | | Dx); Cerebrovascular | | | | | | accident (CVA) due | | | | | | to thrombosis of | | | | | | right middle | | | | | | cerebral artery | | | | | | (HCC); 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 | | | | | | hemianopsia | +--------+ + + + + from Last 3 Months Family History + + +------+ + | Medical History | Relation | Name | Comments | + + +------+ + | Heart defect | Brother | | | + + +------+ + | Diabetes | Brother | | | + + +------+ + | Kidney disease | Brother | | | + + +------+ + | Diabetes, NIDDM | Father | | | + + +------+ + | Heart defect | Father | | | + + +------+ + | Malig hypertherm | Neg Hx | | | + + +------+ + + +------+ + + | Relation | Name | Status | Comments | + +------+ + + | Brother | | | | + +------+ + + | Brother | | | | + +------+ + + | Brother [...] Comments | + + +---------+ + | Not Currently | | | 1 drink every 2 | | | | | weeks | + + +---------+ + + + + | Sex Assigned at | Date Recorded | | | | + + + | Not on file | | + + + Last Filed Vital Signs + + + + + | Vital Sign | Reading | Time Taken | Comments | + + + + + | Blood Pressure | 136/68 | 12/13/2019 10:28 AM | | | | | PDT | | + + + + + | Pulse | 63 | 12/13/2019 10:28 AM | | | | | PDT | | + + + + + | Temperature | 37 C (98.6 F) | 12/03/2019 12:00 PM | | | | | PDT | | + + + + + | Respiratory Rate | 31 | 12/03/2019 3:10 PM | | | | | PDT | | + + + + + | Oxygen Saturation | 100% | 12/13/2019 10:28 AM | | | | | PDT | | + + + + + | Inhaled Oxygen | - | - | | | Concentration | | | | + + + + + | Weight | 85.4 kg (188 lb 4.4 | 12/01/2019 9:47 AM | | | | oz) | PDT | | + + + + + | Height | 170.2 cm (5' 7") | 12/01/2019 9:47 AM | | | | | PDT | | + + + + + | Body Mass Index | 29.49 | 12/01/2019 9:47 AM | | | | | PDT | | + + + + + Plan of Treatment +--------+ + + + [...] | | | | | [facility]iro[facility] | | | | | | [place] [address] | | | | | | [phone] | | | | | | | | +--------+ + + + + | 03/13/ | Office | Neurology | Veronica, | | | 2019 | Visit | | HALI [address] [place], | | | | | | [place] [address] | | | | | | [phone] | | | | | | | | +--------+ + + + + + + + + + | Health Maintenance | Due Date | Last | Comments | | | | Done | | + + + + + | Hepatitis C | | | | | Screening | 4 | | | + + + + + | Med Mgmt: Vit D | | | | | | 4 | | | + + + + + | Medication | | | | | Management | 4 | | | + + + + + | Hemoglobin A1c | | | | | Screening | 2 | | | + + + + + | Colorectal Cancer | | | | | Screening | 4 | | | | (Colonoscopy) | | | | + + + + + | Vaccine: | | | | | Pneumococcal 65+ (1 | 9 | | | | of 1 - PPSV23) | | | | + + + + + | Vaccine: Zoster (3 | | 01/03/20 | | | of 3) | 9 | 19, | | | | | 09/10/19 | | | | | 12 | | + + + + + | Adult Annual | | | | | Wellness Visit | 9 | | | + + + + + | Vaccine: Influenza | | 02/11/20 | | | (#1) | 0 | 18, | | | | | 06/04/19 | | | | | 18, | | | | | 03/07/20 | | | | | 15, | | | | | Addition | | | | | al | | | | | history | | | | | exists | | + + + + + | Med Mgmt: Cr | | 12/03/19 | | | | 1 | 20, | | | | | 12/02/19 | | | | | 20, | | | | | 12/01/19 | | | | | 20, | | | | | Addition | | | | | al | | | | | history | | | | | exists | | + + + + + | Med Mgmt: K | | 12/03/19 | | | | 1 | 20, | | | | | 12/02/19 | | | | | 20, | | | | | 12/01/19 | | | | | 20, | | | | | Addition | | | | | al | | | | | history | | | | | exists | | + + + + + | Vaccine: | | 09/10/19 | | | Dtap/Tdap/Td (2 - | 2 | 12, | | | Td) | | 07/31/19 | | | | | 10, | | | | | 11/19/18 | | | | | 99, | | | | | Addition | | | | | al | | | | | history | | | | | exists | | + + + + + Implants + +-------+--------+ +--------+--------+--------+ | Implanted | Type | Area | Manufacture | Device | Shelf | Model | | | | | r | | Expira | / | | | | | | Identi | tion | Serial | | | | | | fier | Date | / Lot | + +-------+--------+ +--------+--------+--------+ | Xgrft Vascu-Guard Ptch 0.8x8 | Graft | Right: | GARCÍA | | 03/30/ | [id number] | | - Sn/AImplanted: Qty: 1 on | | | BIOSCIENCE | | 2023 | N /N/A | | 12/01/2019 by Salvador Jose, | | Rachelle | - KELLIE | | | | | at [facility] | | d | | | | /[id number] | | [facility] | | | | | | 11-143 | | | | | | | | 5476 | + +-------+--------+ +--------+--------+--------+ | Allgrft Grftn Pls 1cc Aseptic | | N/A: | OSTEOTECH - | | 03/15/ | [id number] | | - [id number]: Qty: | | Spine | OSTT | | 2015 | | | 1 on 07/26/2014 by Olegario, | | Cervic | | | | /[id number] | | Wes Rasmussen MD at [facility] | | al | | | | 1-069 | | [facility] | | | | | | / | + +-------+--------+ +--------+--------+--------+ | Allograft Lordotic [id number] - | | N/A: | SOFAMOR | | 03/27/ | [id number] | | [id number]: Qty: 1 on | | Spine | DANEK - DIV | | 2016 | | | 07/26/2014 by Wes Melvin, | | Agustina | [employer] | | | /[id number] | | at [facility] | | al | - SFDK | | | 137 | | [facility] | | | | | | /[id number] | | | | | | | | [address] | + +-------+--------+ +--------+--------+--------+ | Allogft Lordtc Bone Sr | | N/A: | SPINALGRAFT | | 03/19/ | [id number] | | [id number] - [id number]: | | Spine | | | 2016 | | | Qty: 1 on 07/26/2014 by Olegario, | | Agustina | TECHNOLOGIE | | | /[id number] | | Wes Rasmussen MD at [facility] | | al | S - SPNL | | | 8[address] | | [facility] | | | | | | /[id number] | | [place] | | | | | | [address] | + +-------+--------+ +--------+--------+--------+ | Allograft Lordotic [id number] - | | N/A: | SOFAMOR | | 03/27/ | [id number] | | [id number]: Qty: 1 on | | Spine | DANEK - DIV | | 2016 | | | 07/26/2014 by Wes Melvin, | | Agustina | [employer] | | | /[id number] | | at [facility] | | al | - SFDK | | | [address] | | [facility] | | | | | | /[id number] | | | | | | | | [address] | + +-------+--------+ +--------+--------+--------+ | Allogft Lordtc Bone Sr | | N/A: | SPINALGRAFT | | 03/23/ | [id number] | | [id number] - [id number]: | | Spine | | | 2016 | | | Qty: 1 on 07/26/2014 by Olegario, | | Agustina | TECHNOLOGIE | | | /[id number] | | Wes Rasmussen MD at [facility] | | al | S - SPNL | | | [address] | | [facility] | | | | | | /[id number] | | [place] | | | | | | [address] | + +-------+--------+ +--------+--------+--------+ | Screw Slf-Americo F/A 4.5x17mm - | | N/A: | SOFAMOR | | | [id number] | | [id number]: Qty: 2 on | | Spine | DANEK - DIV | | | | | 07/26/2014 by Wes Melvin, | | Cervic | [employer] | | | | | MD at [facility] | | al | - [facility] | | | | | [facility] | | | | | | | + +-------+--------+ +--------+--------+--------+ | Screw Slf-Drl V/A 4.0x16mm - | | N/A: | SOFAMOR | | | [id number] | | [id number]: Qty: 6 on | | Spine | DANEK - DIV | | | | | 07/26/2014 by Wes Melvin, | | Cervic | [employer] | | | | | MD at [facility] | | al | - [facility] | | | | | [facility] | | | | | | | + +-------+--------+ +--------+--------+--------+ | Screw Slf-Drl V/A 4.0x17mm - | | N/A: | SOFAMOR | | | [id number] | | [id number]: Qty: 2 on | | Spine | DANEK - DIV | | | | | 07/26/2014 by Wes Melvin, | | Cervic | [employer] | | | | | MD at [facility] | | al | - [facility] | | | | | [facility] | | | | | | | + +-------+--------+ +--------+--------+--------+ | Plate Ant [place] Cerv 80mm | | N/A: | MEDTRONIC - | | | [id number] | | - [id number]: Qty: 1 | | Spine | MEDT | | | 0 / / | | on 07/26/2014 by Wes Melvin | | Agustina | | | | | | MD Valery at [facility] | | al | | | | | | [facility] | | | | | | | + +-------+--------+ +--------+--------+--------+ Procedures + +--------+ + + + | Procedure Name | Priori | Date/Time | Associated Diagnosis | Comments | | | ty | | | | + +--------+ + + + | VAS CAROTID DUPLEX | Routin | 12/13/2019 | Carotid stenosis, | Results for this | | BILATERAL | e | 10:25 AM | right | procedure are in the | | | | PDT | | results section. | + +--------+ + + + | LABS - EXTERNAL SCAN | | 12/04/2019 | | Results for this | | | | 12:00 AM | | procedure are in the | | | | PDT | | results section. | + +--------+ + + + | BASIC METABOLIC | Routin | 12/03/2019 | | Results for this | | PANEL | e | 6:18 AM | | procedure are in the | | | | PDT | | results section. | + +--------+ + + + | CBC NO DIFFERENTIAL | Routin | 12/03/2019 | | Results for this | | | e | 6:18 AM | | procedure are in the | | | | PDT | | results section. | + +--------+ + + + | BASIC METABOLIC | Routin | 12/02/2019 | | Results for this | | PANEL | e | 5:28 AM | | procedure are in the | | | | PDT | | results section. | + +--------+ + + + | CBC WITH | Routin | 12/02/2019 | | Results for this | | DIFFERENTIAL | e | 5:28 AM | | procedure are in the | | | | PDT | | results section. | + +--------+ + + + | HEMOGLOBIN AND | STAT | 12/01/2019 | | Results for this | | HEMATOCRIT | | 9:39 PM | | procedure are in the | | | | PDT | | results section. | + +--------+ + + + | SURGICAL PATHOLOGY | Routin | 12/01/2019 | Carotid stenosis, | Results for this | | EXAM | e | 2:35 PM | right | procedure are in the | | | | PDT | | results section. | + +--------+ + + + | ANE AIRWAY NOTE | Routin | 12/01/2019 | | Results for this | | | e | 12:41 PM | | procedure are in the | | | | PDT | | results section. | + +--------+ + + + | CAROTID | | 12/01/2019 | Carotid stenosis, | | | ENDARTERECTOMY | | 11:27 AM | right | | | | | PDT | | | + +--------+ + + + | TYPE AND SCREEN | STAT | 12/01/2019 | | Results for this | | | | 9:50 AM | | procedure are in the | | | | PDT | | results section. | + +--------+ + + + | CBC WITH | STAT | 12/01/2019 | | Results for this | | DIFFERENTIAL | | 9:49 AM | | procedure are in the | | | | PDT | | results section. | + +--------+ + + + | BASIC METABOLIC | STAT | 12/01/2019 | | Results for this | | PANEL | | 9:49 AM | | procedure are in the | | | | PDT | | results section. | + +--------+ + + + | ECG 12 LEAD | Routin | 11/24/2019 | Pre-op testing | Results for this | | | e | 12:02 PM | | procedure are in the | | | | PDT | | results section. | + +--------+ + + + | TYPE AND SCREEN | STAT | 11/24/2019 | | Results for this | | | | 11:47 AM | | procedure are in the | | | | PDT | | results section. | + +--------+ + + + | BASIC METABOLIC | STAT | 11/24/2019 | | Results for this | | PANEL | | 11:47 AM | | procedure are in the | | | | PDT | | results section. | + +--------+ + + + | CBC NO DIFFERENTIAL | STAT | 11/24/2019 | | Results for this | | | | 11:47 AM | | procedure are in the | | | | PDT | | results section. | + +--------+ + + + | CT ANGIOGRAM NECK W | Routin | 10/18/2019 | | Results for this | | CONTRAST | e | 12:05 AM | | procedure are in the | | | | PDT | | results section. | + +--------+ + + + | IMAGING REPORT - | | 10/18/2019 | | Results for this | | EXTERNAL SCAN | | 12:00 AM | | procedure are in the | | | | PDT | | results section. | + +--------+ + + + | CT ANGIOGRAM HEAD W | Routin | 10/18/2019 | | Results for this | | CONTRAST | e | 12:00 AM | | procedure are in the | | | | PDT | | results section. | + +--------+ + + + from Last 3 Months Results VAS Carotid Duplex Bilateral (12/13/2019 10:25 AM PDT) + + | Specimen | + + | | + + + + + | Impressions | Performed At | + + + | 1. Patent post right carotid endarterectomy, without stenosis. | [facility] | | Postoperative hematoma/seroma 2. Some technical limitations, | | | distal vessels are not seen well 3. No evidence of left-sided | | | stenosis Final Report Signed by: Kam Hansen Timothy | | | Sign Date/Time: 12/13/2019 11:55 AM | | + + + + + + | Narrative | Performed At | + + + | CAROTID DUPLEX ULTRASOUND CLINICAL INFORMATION: Follow up | [facility] | | post Right carotid endarterectomy. COMPARISON: US CAROTID DOPPLER | | | BILATERAL (09/12/2015); PROCEDURE: Evaluation of the extracranial | | | carotid and vertebral arteries with production of real-time images | | | integrating B-mode two-dimensional vascular structure, Doppler | | | spectral analysis and color-flow Doppler imaging. Carotid | | | stenosis measurements based on Society of Radiologists in Ultrasound | | | consensus and [place] Criteria. FINDINGS: Peak systolic and | | | diastolic velocities measured in the common and internal carotid | | | arteries. All velocities recorded in cm/sec: Anterior Circulation: | | | Right CCA: 81/20 ICA: 52/14 ECA: 77/11 ICA/CCA: 0.6 Left | | | CCA: 71/17 ICA: 108 /18 ECA: 81/11 ICA/CCA: 1.5 Posterior | | | Circulation: Right: Vertebral: Patent, antegrade, velocity 70 | | | centimeters/second Left: Vertebral: Patent, antegrade, velocity | | | 36 centimeters/second Likely a postoperative hematoma/seroma in | | | the neck to the right of midline, measuring about 7.4 cm in major | | | axis. Unaccompanied by intrinsic vascular flow The bilateral | | | distal internal carotid arteries are difficult to visualize due to | | | technical issues and soft tissue swelling Widely patent post proximal | | | right carotid endarterectomy, with expected postprocedural changes | | | to the vascular lumen only, image 34/44 | | + + + + + | Procedure Note | + + | [place], [id number] - 12/13/2019 11:59 AM PDT | | CAROTID DUPLEX ULTRASOUND | | | | CLINICAL INFORMATION: | | Follow up post Right carotid endarterectomy. | | | | COMPARISON: | | US CAROTID DOPPLER BILATERAL (09/12/2015); | | | | PROCEDURE: | | Evaluation of the extracranial carotid and vertebral arteries with | | production of real-time images integrating B-mode two-dimensional | | vascular structure, Doppler spectral analysis and color-flow Doppler | | imaging. | | | | Carotid stenosis measurements based on Society of Radiologists in | | Ultrasound consensus and [place] Criteria. | | | | FINDINGS: | | Peak systolic and diastolic velocities measured in the common and | | internal carotid arteries. All velocities recorded in cm/sec: | | | | Anterior Circulation: | | | | Right | | CCA: 81/20 | | ICA: 52/14 | | ECA: 77/11 | | ICA/CCA: 0.6 | | | | Left | | CCA: 71/17 | | ICA: 108 /18 | | ECA: 81/11 | | ICA/CCA: 1.5 | | | | Posterior Circulation: | | | | Right: | | Vertebral: Patent, antegrade, velocity 70 centimeters/second | | | | Left: | | Vertebral: Patent, antegrade, velocity 36 centimeters/second | | | | Likely a postoperative hematoma/seroma in the neck to the right of | | midline, measuring about 7.4 cm in major axis. Unaccompanied by | | intrinsic vascular flow | | | | The bilateral distal internal carotid arteries are difficult to | | visualize due to technical issues and soft tissue swelling | | Widely patent post proximal right carotid endarterectomy, with expected | | postprocedural changes to the vascular lumen only, image 34/44 | | | | | | IMPRESSION: | | 1. Patent post right carotid endarterectomy, without stenosis. | | | | Postoperative hematoma/seroma | | | | 2. Some technical limitations, distal vessels are not seen well | | | | 3. No evidence of left-sided stenosis | | | | | | | | Final Report Signed by: Kam Hansen Timothy | | Sign Date/Time: 12/13/2019 11:55 AM | + + + +---------+ + + | Performing | Address | City/State/Zipcode | Phone Number | | Organization | | | | + +---------+ + + | [facility] | | | | + +---------+ + + LABS - EXTERNAL SCAN (12/04/2019 12:00 AM PDT) + + + | Narrative | Performed At | + + + | Ordered by an | | | unspecified provider. | | + + + CBC no Differential (12/03/2019 6:18 AM PDT)Only the most recent of 2 results within the period is included. + + + + + + | Component | Value | Ref Range | Performed | Pathologist | | | | | At | Signature | + + + + + + | WBC | 12.58 (H) | 3.80 - 11.00 | [facility] | | | | | K/uL | LABORATORY | | + + + + + + | Red Blood | 3.30 (L) | 4.20 - 5.70 | [facility] | | | Cells | | M/uL | LABORATORY | | + + + + + + | Hemoglobin | 9.7 (L) | 13.2 - 17.0 | [facility] | | | | | g/dL | LABORATORY | | + + + + + + | Hematocrit | 30.1 (L) | 39.0 - 50.0 % | [facility] | | | | | | LABORATORY | | + + + + + + | MCV | 91.2 | 80.0 - 100.0 fl | [facility] | | | | | | LABORATORY | | + + + + + + | MCH | 29.4 | 27.0 - 34.0 pg | [facility] | | | | | | LABORATORY | | + + + + + + | MCHC | 32.2 | 32.0 - 35.5 | [facility] | | | | | g/dL | LABORATORY | | + + + + + + | RDW-SD | 49.1 | 37 - 53 fl | [facility] | | | | | | LABORATORY | | + + + + + + | Platelet | 171 | 150 - 400 K/uL | [facility] | | | Count | | | LABORATORY | | + + + + + + | MPV | 10.2Comment: NO NORMAL | fl | [facility] | | | | RANGE ESTABLISHEDTesting | | LABORATORY | | | | performed at [facility], [address] | [address], | | | | | | [place] [address] | | | | + + + + + + + + | Specimen | + + | Blood | + + + + + + + | Performing | Address | City/State/Zipcode | Phone Number | | Organization | | | | + + + + + | [facility] | [address] | [place] [address] | [phone] | + + + + + Basic Metabolic Panel (12/03/2019 6:18 AM PDT)Only the most recent of 4 results within the time period is included. + + + + + + | Component | Value | Ref Range | Performed | Pathologist | | | | | At | Signature | + + + + + + | Na | 139 | 135 - 145 | [facility] | | | | | mmol/L | LABORATORY | | + + + + + + | K | 4.4 | 3.5 - 4.9 | [facility] | | | | | mmol/L | LABORATORY | | + + + + + + | Cl | 107 | 99 - 109 mmol/L | [facility] | | | | | | LABORATORY | | + + + + + + | CO2 | 26 | 23 - 32 mmol/L | [facility] | | | | | | LABORATORY | | + + + + + + | Anion Gap | 10 | 5 - 20 mmol/L | [facility] | | | | | | LABORATORY | | + + + + + + | Glucose | 106 (H) | 65 - 99 mg/dL | [facility] | | | | | | LABORATORY | | + + + + + + | BUN | 29 (H) | 8 - 25 mg/dL | [facility] | | | | | | LABORATORY | | + + + + + + | Creatinine | 0.90 | 0.70 - 1.30 | [facility] | | | | | mg/dL | LABORATORY | | + + + + + + | BUN/Creatin | 32 | | [facility] | | | ine Ratio | | | LABORATORY | | + + + + + + | Calcium | 8.6 | 8.5 - 10.5 | [facility] | | | | | mg/dL | LABORATORY | | + + + + + + | Estimated | >60Comment: GFR <60: | >60 | [facility] | | | GFR | CHRONIC KIDNEY DISEASE, | mL/min/1.73m2 | LABORATORY | | | | IF FOUND OVER A 3 MONTH | | | | | | PERIOD.GFR <15: KIDNEY | | | | | | FAILURE.FOR | | | | | | AMERICANS, MULTIPLY THE | | | | | | CALCULATED GFR BY | | | | | | 1.210.This eGFR is | | | | | | calculated using the | | | | | | MDRD IDMS traceable | | | | | | equation.Testing | | | | | | performed at [facility], [address] | | | | | | [facility], | | | | | | [place] [address] | | | | + + + + + + + + | Specimen | + + | Blood | + + + + + + + | Performing | Address | City/State/Zipcode | Phone Number | | Organization | | | | + + + + + | [facility] | [address] | [place] [address] | [phone] | + + + + + CBC with Differential (12/02/2019 5:28 AM PDT)Only the most recent of 2 results within the time period is included. + + + + + + | Component | Value | Ref Range | Performed | Pathologist | | | | | At | Signature | + + + + + + | WBC | 16.75 (H) | 3.80 - 11.00 | [facility] | | | | | K/uL | LABORATORY | | + + + + + + | Red Blood | 3.79 (L) | 4.20 - 5.70 | [facility] | | | Cells | | M/uL | LABORATORY | | + + + + + + | Hemoglobin | 11.1 (L) | 13.2 - 17.0 | [facility] | | | | | g/dL | LABORATORY | | + + + + + + | Hematocrit | 34.4 (L) | 39.0 - 50.0 % | [facility] | | | | | | LABORATORY | | + + + + + + | MCV | 90.8 | 80.0 - 100.0 fl | [facility] | | | | | | LABORATORY | | + + + + + + | MCH | 29.3 | 27.0 - 34.0 pg | [facility] | | | | | | LABORATORY | | + + + + + + | MCHC | 32.3 | 32.0 - 35.5 | [facility] | | | | | g/dL | LABORATORY | | + + + + + + | RDW-SD | 48.8 | 37 - 53 fl | [facility] | | | | | | LABORATORY | | + + + + + + | Platelet | 217 | 150 - 400 K/uL | [facility] | | | Count | | | LABORATORY | | + + + + + + | MPV | 10.3Comment: NO NORMAL | fl | [facility] | | | | RANGE ESTABLISHED | | LABORATORY | | + + + + + + | Diff Type | AUTOMATED | | [facility] | | | | | | LABORATORY | | + + + + + + | % nRBC | 0.0 | 0 /100WBC | [facility] | | | | | | LABORATORY | | + + + + + + | % | 88.60 | % | [facility] | | | Neutrophils | | | LABORATORY | | + + + + + + | IMMATURE | 0.70 | % | [facility] | | | GRANULOCYTE | | | LABORATORY | | + + + + + + | % | 2.10 | % | [facility] | | | Lymphocytes | | | LABORATORY | | + + + + + + | Monocyte % | 8.30 | % | [facility] | | | | | | LABORATORY | | + + + + + + | Eosinophils | 0.10 | % | [facility] | | | % | | | LABORATORY | | + + + + + + | Basophils % | 0.20 | % | [facility] | | | | | | LABORATORY | | + + + + + + | Neutrophils | 14.85 (H) | 1.90 - 7.40 | [facility] | | | , Absolute | | K/uL | LABORATORY | | + + + + + + | IMMATURE | 0.11 (H)Comment: NOTE | 0.00 - 0.07 | [facility] | | | GRANS AB | NEW REFERENCE RANGE | K/uL | LABORATORY | | + + + + + + | Absolute | 0.36 (L) | 1.00 - 3.90 | [facility] | | | Lymphocytes | | K/uL | LABORATORY | | + + + + + + | Absolute | 1.39 (H) | 0.00 - 0.80 | [facility] | | | Monocytes | | K/uL | LABORATORY | | + + + + + + | Eosinophils | 0.01 | 0.00 - 0.50 | [facility] | | | , Absolute | | K/uL | LABORATORY | | + + + + + + | Basophils, | 0.03Comment: Testing | 0.00 - 0.10 | [facility] | | | Absolute | performed at [facility], [address] | K/uL | LABORATORY | | | | [address], | | | | | | [place] [address] | | | | + + + + + + + + | Specimen | + + | Blood | + + + + + + + | Performing | Address | City/State/Zipcode | Phone Number | | Organization | | | | + + + + + | [facility] | [address] | [place] [address] | [phone] | + + + + + Hemoglobin and Hematocrit (12/01/2019 9:39 PM PDT) + + + + + + | Component | Value | Ref Range | Performed | Pathologist | | | | | At | Signature | + + + + + + | Hemoglobin | 11.6 (L) | 13.2 - 17.0 | [facility] | | | | | g/dL | LABORATORY | | + + + + + + | Hematocrit | 36.6 (L)Comment: Testing | 39.0 - 50.0 % | [facility] | | | | performed at [facility];[address] | [address]AT[address] | | | [address];[place] | | | | | | [address] | | | | + + + + + + + + | Specimen | + + | Blood | + + + + + + + | Performing | Address | City/State/Zipcode | Phone Number | | Organization | | | | + + + + + | [facility] | [address] | [place] [address] | [phone] | + + + + + Surgical Pathology Exam (12/01/2019 2:35 PM PDT) + + | Specimen | + + | Tissue - Arterial | | part (body | | structure) | + + + + + | Narrative | Performed At | + + + | SPECIMEN(S): A | [facility] | | RT CAROTID PLAQUE SPECIMEN SOURCE:A. RT CAROTID PLAQUE CLINICAL | [facility] | | HISTORY:I65.21 (carotid stenosis, right) FINAL PATHOLOGIC | | | DIAGNOSIS:Right carotid plaque:- Fragments of atherosclerotic plaque | | | with extensive calcification. JVR:[facility]:C2NR MICROSCOPIC | | | EXAMINATION:Histologic sections of all submitted blocks are examined | | | by light microscopy. These findings, together with the gross | | | examination, support the pathologic diagnosis. GROSS DESCRIPTION:The | | | specimen, labeled "MA, right carotid plaque," is received in formalin | | | and consists of 2, somewhat tubular, logan-white, fibrous, vessel-like | | | structures, 1.0 cm in diameter, 1.8 cm long, and 1.0 cmin diameter and | | | 3.0 cm long. The tubular structures have logan-white to dark red, | | | calcified, hard, plaque that extends up to 0.7 cm and occludes | | | approximately up to 70% of the lumen. Representativesections are | | | submitted after decalcification in one cassette (A1).AI (under the | | | direct supervision of a pathologist) The Gross Description was | | | prepared using a voice recognition system. The report was reviewed | | | for accuracy; however, sound-alike word errors, addition and/or | | | deletions may occur. If there is anyquestion about this report, | | | please contact Client Services. PERFORMING LABORATORY:The technical | | | component was performed by [facility], [address] [place] [address], | | | [place] [address] (Nutritional Yeast Supervisor: Shannan Archer MD; CLIA# | | | [id number]). Professional interpretation was performed by[facility] | | | [address] | | | [place] [address] (Nutritional Yeast Supervisor: Issa | | | Kam Palacio). Diagnostician: Issa Palacio | | | MDPathologistElectronically Signed 12/05/2019 | | |The technical component was performed by [facility], [address] [place] [address] (Nutritional Yeast Supervisor: Shannan Archer MD; CLIA# [id number]). Professional interpretation w as performed by | | |[facility] [place] [address] (Nutritional Yeast Supervisor: Issa Palacio M.D.). | | | | | |Diagnostician: Issa Palacio MD | | |Pathologist | | |Electronically Signed 12/05/2019 | | | | | | | | + + + + +---------+ + + | Performing | Address | City/State/Zipcode | Phone Number | | Organization | | | | + +---------+ + + | [facility] | | | | | [facility] | | | | + +---------+ + + Airway (12/01/2019 12:41 PM PDT) + + + | Narrative | Performed At | + + + | Allison Segura MD 12/01/2019 12:41 PM Anesthesia Airway | | | Placement 12/01/2019 11:51 AM Preprocedure check: patient | | | identified, oxygen, airway assessed, patient reassessment prior to | | | induction, airway equipment checked and suction Mask ventilation: | | | easy Successful technique: Mac Laryngoscope blade size: 3 | | | Airway grade: 1 (Full view of glottis) Other equipment: stylette | | | Attempts: 1 Airway type: endotracheal Size: 8 Cuffed: cuffed | | | Route, reference point: left side of mouth Tube depth: 24 cm Tube | | | secured with: adhesive tape Trauma: none Tube placement | | | verification: bilateral chest rise and carbon dioxide detection | | | Performing provider: Allison Segura MD Authorizing provider: | | | Allison Segura MD Please see intraoperative grid for any | | | additional medication documentation. | | + + + Type and Screen (12/01/2019 9:50 AM PDT)Only the most recent of 2 results within the time period is included. + + + + + + | Component | Value | Ref Range | Performed | Pathologist | | | | | At | Signature | + + + + + + | ABO Rh | A POSITIVE | | [facility] | | | | | | LABORATORY | | + + + + + + | Antibody | NEGATIVE | | [facility] | | | Screen | | | LABORATORY | | + + + + + + | BB BAND | [id number] | | [facility] | | | | | | LABORATORY | | + + + + + + | BB BAND | Testing performed at | | [facility] | | | | [facility];[address] | | LABORATORY | | | | [address];[place] [address] | | | | + + + + + + + + | Specimen | + + | Blood | + + + + + + + | Performing | Address | City/State/Zipcode | Phone Number | | Organization | | | | + + + + + | [facility] | [address] | [place] [address] | [phone] | + + + + + ECG 12 lead (11/24/2019 12:02 PM PDT) + + + + + + | Component | Value | Ref Range | Performed | Pathologist | | | | | At | Signature | + + + + + + | VENTRICULAR | 63 | BPM | [facility] | | | RATE EKG | | | | | + + + + + + | ATRIAL RATE | 63 | BPM | [facility] | | + + + + + + | P-R | 148 | ms | [facility] | | | INTERVAL | | | | | + + + + + + | QRS | 82 | ms | [facility] | | | DURATION | | | | | + + + + + + | Q-T | 416 | ms | [facility] | | | INTERVAL | | | | | + + + + + + | Q-T | 425 | ms | [facility] | | | INTERVAL | | | | | | (CORRECTED) | | | | | + + + + + + | P WAVE AXIS | 22 | degrees | [facility] | | + + + + + + | QRS AXIS | -8 | degrees | [facility] | | + + + + + + | T AXIS | 26 | degrees | [facility] | | + + + + + + | INTERPRETAT | Sinus rhythm with | | [facility] | | | ION TEXT | Premature atrial | | | | | | complexesOtherwise | | | | | | normal ECGWhen compared | | | | | | with ECG of 19-NOV-2005 | | | | | | 11:56,Premature atrial | | | | | | complexes are now | | | | | | PresentConfirmed by | | | | | | Kam Balderas, Jhon | | | | | | ([id number]) on 11/24/2019 | | | | | | 9:31:06 PM | | | | + + + + + + + + | Specimen | + + | | + + + + + | Narrative | Performed At | + + + | | | + + + + +---------+ + + | Performing | Address | City/State/Zipcode | Phone Number | | Organization | | | | + +---------+ + + | [facility] | | | | + +---------+ + + CT Angiogram Neck w Contrast (10/18/2019 12:05 AM PDT) + + | Specimen | + + | | + + + + + | Narrative | Performed At | + + + | External films for comparison only | [facility] | | | | | No results will be in the chart. | | + + + + +---------+ + + | Performing | Address | City/State/Zipcode | Phone Number | | Organization | | | | + +---------+ + + | [facility] | | | | + +---------+ + + IMAGING REPORT - EXTERNAL SCAN (10/18/2019 12:00 AM PDT) + + + | Narrative | Performed At | + + + | Ordered by an | | | unspecified provider. | | + + + CT Angiogram Head w Contrast (10/18/2019 12:00 AM PDT) + + | Specimen | + + | | + + + + + | Narrative | Performed At | + + + | External films for comparison only | [facility] | | | | | No results will be in the chart. | | + + + + +---------+ + + | Performing | Address | City/State/Zipcode | Phone Number | | Organization | | | | + +---------+ + + | [facility] | | | | + +---------+ + + from Last 3 Months Insurance + +--------+ +--------+ +---------+--------+ | Payer | Benefi | Subscriber | Effect | Phone | Address | Type | | | t Plan | ID | alejandro | | | | | | / | | Dates | | | | | | Group | | | | | | + +--------+ +--------+ +---------+--------+ | [employer] | [employer] | [id number] | | | | Indemn | | | NS | | 017-Pr | | | ity | | | ADMIN | | esent | | | | | | [place] | | | | | | | | [place] | | | | | | + +--------+ +--------+ +---------+--------+ | MEDICARE | MEDICA | [id number] | 11/15/19 | [phone] | | Medica | | | RE | | 16-Pre | 5 | | re | | | PART A | | sent | | | | | | AND B | | | | | | + +--------+ +--------+ +---------+--------+ | MEDICARE | MEDICA | [id number] | 11/15/19 | [phone] | | Medica | | | RE | | 16-Pre | 5 | | re | | | PART A | | sent | | | | | | AND B | | | | | | + +--------+ +--------+ +---------+--------+ | MEDICARE | MEDICA | [id number] | 11/15/19 | [phone] | | Medica | | | RE | | 16-Pre | 5 | | re | | | PART A | | sent | | | | | | AND B | | | | | | + +--------+ +--------+ +---------+--------+ | [facility] | S | [id number] | 11/14/18 | | | Indemn | | SERVICE | YELLOW | | 99-Pre | | | ity | | | HAWK | | sent | | | | + +--------+ +--------+ +---------+--------+ | [employer] | [employer]HS | [id number] | 07/16/19 | | | Indemn | | SERVICE | YELLOW | | 10-Pre | | | ity | | | HAWK | | sent | | | | + +--------+ +--------+ +---------+--------+ | [employer] | IHS | [id number] | 05/17/19 | | | Indemn | | SERVICE | YELLOW | | 20-Pre | | | ity | | | HAWK | | sent | | | | + +--------+ +--------+ +---------+--------+ + +--------+ +--------+ + + | Guarantor Name | Accoun | Relation to | Date | Phone | Billing Address | | | t Type | Patient | of | | | | | | | | | | + +--------+ +--------+ + + | Buck Bell | Person | Self | [birth year] | [address] | | [place] | al/Fam | | 1945 | [phone] | [place], [place] | | | carolyn | | | 9 (Home) | [phone] | + +--------+ +--------+ + + | Buck Bell | Person | Self | [birth year] | | [address] | | [place] | al/Fam | | 1945 | [phone] | [place], [place] | | | [place] | | | 9 (Home) | [address] | + +--------+ +--------+ + + | Buck Bell | Person | Self | [birth year] | | [address] | | [place] | al/Fam | | 1945 | [phone] | [place], [place] | | | [place] | | | 9 (Home) | [address] | + +--------+ +--------+ + + Advance Directives + + + + + | Type | Date Recorded | Patient | Explanation | | | | Night Clerk Auditor | | + + + + + | Power of | | | | | Nuclear Equipment Operator | | | | + + + + + | Advance | 01/19/2014 8:27 | | | | Directive | AM | | | + + + + + + + + + + | Code Status | Date | Date | Comments | | | Activated | Inactivated | | + + + + + | Full Code | 07/26/2014 | 07/27/2014 | | | | 3:16 PM | 2:16 PM | | + + + + +
--- OUTSIDE RECORDS SUMMARY | ~2019-12-22 | XMS | Encounter Summary ---
Demographics + + + | Address | [address] | | | [place] [address] | + + + | Home Phone | | + + + | Preferred Language | Unknown | + + + | Marital Status | Single | + + + | Confucianism Affiliation | 1041 | + + + | Race | Unknown | + + + | Ethnic Group | Unknown | + + + Author + + + | Author | [facility] | | | and [place] | + + + | Organization | [facility] | | [...] Team Providers + +------+ + | Care Settlement Technician Name | Role | Phone | + +------+ + | Sydney Lennon | PCP | | + +------+ + Reason for Visit + +--------+ + | Reason | Onset | Comments | | | Date | | + +--------+ + | Procedure | 11/14/ | 11/24/19 | | | 2020 | | + +--------+ + Encounter Details +--------+ + + + + | Date | Type | Department | Care Team | Description | +--------+ + + + + | 11/14/ | Telephone | [facility] | Salvador Jose MD | Procedure (11/24/19) | | 2020 | | VASCULAR SURGERY | [address] | | | | | [address] | [facility] E [facility] | | | | | E [place], [place] | [place] [address] | | | | | [address] | [phone] | | | | | [phone] | | | +--------+ + + + [...] Telephone Encounter - Yazmin Jesus RN - 11/15/2019 3:55 PM PDTReturn call made to gino carolina, he would like to reschedule his surgery to a later date due to a family issue that ca me up. Surgery with Dr Jose rescheduled to 12/01/2019. elephone Encounter - Monae Tidwell - 11/15/2019 3:41 PM PDTMark, is calling regarding Procedure (11/24/19) and would like a call back. Additional Call Details: Calling to reschedule 11/24/19 surgery appointment. Please call Sharon oh back If this is a symptom based call, was patient offered triage? Not Applicable If this is a symptom based call and you were unable to immediately transfer the call to a brandon jane family readiness support assistant was caller made aware that if at [...] | | | | | [address] | | | | | | [place] [address] | | | | | | [phone] | | | | | | | | +--------+ + + + + | 03/13/ | Office | Neurology | [place], | | | 2020 | Visit | | [address] | | [address] [place], | | | | | | [place] [address] | | | | | | [phone] | | | | | | | | +--------+ + + + + documented as of this encounter Visit Diagnoses Not on filedocumented in this encounter"
--- OUTSIDE RECORDS SUMMARY | ~2019-12-22 | XMS | Encounter Summary ---
Demographics + + + | Address | [address] | | | [place] [address] | + + + | Home Phone | | + + + | Preferred Language | Unknown | + + + | Marital Status | Single | + + + | Nondenominational Affiliation | 1041 | + + + [...] Team Providers + +------+ + | Care Scale Technician Name | Role | Phone | + +------+ + | Sydney Lennon | PCP | | + +------+ + Reason for Visit +--------+--------+ + | Reason | Onset | Comments | | | Date | | +--------+--------+ + | Other | 11/05/ | Appointment Notes Request | | | 2020 | | +--------+--------+ + Encounter Details +--------+ + + + + | Date | Type | Department | Care Team | Description | +--------+ + + + + | 11/05/ | Telephone | [facility] | Salvador Jose MD | Other (Appointment | | 2020 | | VASCULAR SURGERY | [address] | Notes Request) | | | | [address] | [address] [facility] | | | | | E [place], [place] | [place] [address] | | | | | [address] | [phone] | | | | | [phone] | | | +--------+ + + + [...] this encounter Miscellaneous Notes Telephone Encounter - Jennyfer Rojo - 11/06/2019 2:45 PM [facility], is calling regarding Other (Appointment Notes Request) and would like a call back. Additional Call Details: Is wanting to know if the appointment notes from the 11/01/19 tele phonic visit can be sent to their medical records at fax: [phone]. If this is a symptom based call, was patient offered triage? Not Applicable If this is a symptom based call and you were unable to immediately transfer the call to a brandon jane car worker helper was caller made aware that if [...] | Salvador Jose MD | | | 2020 | Visit | | [address] | | | | | | [address] [facility] | | | | | | [place] [address] | | | | | | [phone] | | | | | | | | +--------+ + + + + | 03/13/ | Office | Neurology | [place], | | | 2020 | Visit | | [address] [place], | | | | | | [place] [address] | | | | | | [phone] | | | | | | | | +--------+ + + + + documented as of this encounter Visit Diagnoses Not on filedocumented in this encounter"
--- OUTSIDE RECORDS SUMMARY | ~2019-12-22 | XMS | Encounter Summary ---
Demographics + + + | Address | [address] | | | [place] [address] | + + + | Home Phone | | + + + | Preferred Language | Unknown | + + + | Marital Status | Single | + + + | Oriental Orthodox Affiliation | 1041 | + + + | Race | Unknown | + + + | Ethnic Group | Unknown | + + + Author + + + | Author | [facility] | | | and [place] | + + + | Organization | [facility] | | | [...] Team Providers + +------+ + | Care Personal Computer Network Analyst Name | Role | Phone | + +------+ + | Sydney Lennon | PCP | | + +------+ + Encounter Details +--------+ + + + + | Date | Type | Department | Care Team | Description | +--------+ + + + + | 11/13/ | Imaging | [facility] | Provider, | | | 2020 | Exam | [facility] | MD [address] | | | | | IMAGING [address] | Ray[address] | | | | | [address] | [place] [address] | | | | | [place] [address] | | | | | | [phone] | | | +--------+ + + + [...] [place] | | | | | | [place] [address] | | | | | | [phone] | | | | | | | | +--------+ + + + + | 03/13/ | Office | Neurology | Veronica, | | | 2019 | Visit | | [address] | | | | | | [address] [facility] [place], | | | | | | [place] [address] | | | | | | [phone] | | | | | | | [...] + + documented in this encounter Results CT Angiogram Neck w Contrast (10/18/2019 12:05 [...] | | | + +---------+ + + documented in this encounter Visit Diagnoses Not on filedocumented in this encounter"
--- OUTSIDE RECORDS SUMMARY | ~2019-12-22 | XMS | Encounter Summary ---
Demographics + + + | Address | [address] | | | [place] [address] | + + + | Home Phone | | + + + | Preferred Language | Unknown | + + + | Marital Status | Single | + + + | Congregation Affiliation | 1041 | + + + | Race | Unknown | + + + | Ethnic Group | Unknown | + + + Author + + + | Author | [facility] | | | and [place] | + + + | Organization | [facility] | | | and [...] Team Providers + +------+ + | Care Burnisher Name | Role | Phone | + +------+ + | Dominic Carlin MD | PCP | | + +------+ + Reason for Visit +--------+--------+ + | Reason | Onset | Comments | | | Date | | +--------+--------+ + | Other | 07/24/ | presurgical check-in instructions | | | 2014 | | +--------+--------+ + Encounter Details +--------+ [...] | | [address] | [place] [address] | instructions) | | | | [place] | [phone] | | | | | [address] | | | | | | [phone] | | | +--------+ + + + [...] this encounter Miscellaneous Notes Telephone Encounter - Edna Mcdermott S - 07/25/2014 10:24 AM Reza's surgery time has c hanged due to a change in the surgery schedule. Amended surgery check-in time: Surgery date: 07/26/14 Check-in Time: 7:30 AM Buck verbalized understanding. elephone Encounter - Edna Mcdermott - 07/25/2014 10:19 AM PDTAll presurgical check-in instructions given Surgery date: 07/26/14 Check-in Time: 9:30AM No solids or liquids after midnight the night before surgery. Follow the cleansing instructions provided beginning the night before surgery after you gilda wer or bathe. No showering the morning of surgery. Please do not wear jewelry, or contact lenses to surgery check-in. If you have dentures, or hearing aids please bring the cases to check-in. Buck verbalized understanding. elephone Encounter - Lacy Blanco - 07/25/2014 8:13 AM PDTBuck returned Edna's call. He will try back late r. elephone Encounter - Edna Jolly - 07/24/2014 11:29 AM PDTLeft a voicemail to give presurgical check-in ins tructions. Requested a callback. 11: 30 AM PDTdocumented in this encounter Plan of Treatment +--------+ [...] | | | | | [facility] | | | | | | [place] [address] | | | | | | [phone] | | | | | | | | +--------+ + + + + | 03/13/ | Office | Neurology | Veronica, | | | 2019 | Visit | | [address] | | | | | | [address] [place], | | | | | | [place] [address] | | | | | | [phone] | | | | | | | | +--------+ + + + + documented as of this encounter Visit Diagnoses Not on filedocumented in this encounter"
--- OUTSIDE RECORDS SUMMARY | ~2019-12-22 | XMS | Encounter Summary ---
Demographics + + + | Address | [address] | | | [place] [address] | + + + | Home Phone | | + + + | Preferred Language | Unknown | + + + | Marital Status | Single | + + + | Mormonism Affiliation | 1041 | + + + | Race | Unknown | + + + | Ethnic Group | Unknown | + + + Author + + + | Author | [facility] | | | and [place] | + + + | Organization | [facility] | | | [...] Team Providers + +------+ + | Care Thoracic Medicine Physician Name | Role | Phone | + +------+ + | Sydney Lennon | PCP | | + +------+ + Reason for Visit Auth/Cert +--------+--------+ + + + + | Status | Reason | Specialty | Diagnoses / | Referred By | Referred To | | | | | Procedures | Contact | Contact | +--------+--------+ + + + + | | | | Diagnoses | | | | | | | Carotid | | | | | | | stenosis, | | | | | | | right | | | | | | | Procedures | | | | | | | FL | | | | | | | THROMBOENDAR | | | | | | | TECTMY | | | | | | | NECK,NECK | | | | | | | INCIS | | | | | | | CAROTID | | | | | | | ENDARTERECTO | | | | | | | MY | | | +--------+--------+ + + + + Encounter Details +--------+ + + + + | Date | Type | Department | Care Team | Description | +--------+ + + + + | 11/30/ | Anesthesia | [facility] | Allison Segura, | | | 2019 | Event [facility] | MD [address] | | | | | [address]PER[address] | [place] [address] | | | | | [address] | [phone] | | | | | [place], [place] | | | | | | [address] | | | | | | [phone] | | | +--------+ + + + + Anesthesia Record + + + + + | Procedure Name | Responsible | Anesthesia Start | Anesthesia Stop Time | | | Anesthesiologist | Time | | + + + + + | CAROTID | Allison Segura MD | 12/01/19 1142 | 12/01/19 1618 | | ENDARTERECTOMY | | | | | (Right Neck) | | | | + + + + + +----+---+ + + | Da | T | Event | Comment | | te | i | | | | | m | | | | | e | | | +----+---+ + + | 07 | 1 | An Checkout | Pre-use anesthesia machine/equipment checkout. | | /1 | 1 | | | | 7/ | 4 | | | | 20 | 2 | | | | 20 | | | | +----+---+ + + | | 1 | An Start | Reassessment prior to anesthesia induction/procedure. | | | 1 | | | | | 4 | | | | | 2 | | | +----+---+ + + | | 1 | Preoxygenat | | | | 1 | ed | | | | 4 | | | | | 8 | | | +----+---+ + + | | 1 | An | | | | 1 | Induction | | | | 4 | | | | | 9 | | | +----+---+ + + | | 1 | An | | | | 1 | Intubation | | | | 5 | | | | | 1 | | | +----+---+ + + | | 1 | Quick Note | Left radial arterial line placed by Dr. Jose using ultrasound | | | 1 | | guidance | | | 5 | | | | | 4 | | | +----+---+ + + | | 1 | First | | | | 2 | Inc/Proc St | | | | 2 | | | | | 0 | | | +----+---+ + + | | 1 | An Carotid | | | | 4 | On | | | | 0 | | | | | 6 | | | +----+---+ + + | | 1 | Extubation/ | | | | 6 | Airway LDA | | | | 0 | Removal | | | | 7 | | | +----+---+ + + | | 1 | an stop | | | | 6 | data | | | | 1 | | | | | 2 | | | +----+---+ + + | | 1 | An Stop | Patient handed off to recovery nurse. | | | 1 | | | | | 8 | | | +----+---+ + + +------+ | Meds | +------+ + + + | Name | Total | + + + | fentaNYL | 50 mcg | + + + | lidocaine 2% | 80 mg | + + + | propofol | 230 mg | + + + | rocuronium | 60 mg | + + + | dexamethasone | 4 mg | + + + | ondansetron | 4 mg | + + + | phenylephrine | 200 mcg | + + + | neostigmine | 3 mg | + + + | glycopyrrolate | 1.8 mg | + + + | ceFAZolin in dextrose (ANCEF) | 4 g | | IVPB 2 g | | + + + | sodium chloride 0.9% (NS) 250 mL | 140 mcg | | with phenylephrine | | | (MARVIN-SYNEPHRINE, VAZCULEP) 10 mg | | | per mL 10 mg infusion | | + + + | remifentanil | 1,000.03 mcg | + + + | propofol infusion | 790.8 mg | + + + | phenylephrine | 6,910 mcg | + + + | heparin | 9,000 Units | + + + | hydrALAZINE | 10 mg | + + + | ePHEDrine | 20 mg | + + + | balanced electrolytes in water | 1,800 mL | | (PLASMALYTE-148/NORMOSOL-R) | | | infusion | | + + + + + | Name | + + | N2O Flow Rate (L/Min) | + + | O2 Flow Rate (L/Min) | + + | Insp O2 | + + | Exp N2O | + + | Exp SEV | + + | Air Flow Rate (L/Min) | + + + + | No blood administrations on file. | + + +--------+ + + + | Type | Details | Placement | Removal | +--------+ + + + | Wound | 12/01/19; N; Incision; Right; | 12/01/19 0000 by | | | | neck | Miley Boykin RN | | +--------+ + + + | Periph | 12/01/19; 1014; Right; Anterior | 12/01/19 1014 by | 12/03/19 1539 by | | guadalupe | (palmar), Proximal; Forearm; | Daisy Franz RN | Dahiana Pablo RN | | IV | [id number] catheter system; | | | | | 18 gauge; short term use (removed | | | | | angiocath intact, direct | | | | | pressure held x 3 min); 12/03/19; | | | | | 1539 | | | +--------+ + + + | Airway | Placement Date: 12/01/19; | 12/01/19 1151 by | 12/01/19 1607 by | | | Placement Time: 1151 (created via | Allison Segura MD | Allison Segura MD | | | procedure documentation); Mask | | | | | Ventilation: EZ; Airway Grade: 1; | | | | | Successful Technique: Mac; | | | | | Laryngoscope Blade Size: 3; | | | | | Attempts: 1; Airway Type: | | | | | endotracheal; Size: 8; Airway | | | | | Tube Secured At: 24; Trauma: | | | | | none; Other Equipment: stylette; | | | | | Placement Check: exhaled CO2 | | | | | detection device, bilateral chest | | | | | rise; Removal Date: 12/01/19; | | | | | Removal Time: 1607 | | | +--------+ + + + | Urethr | 12/01/19; 1153; indicated due to | 12/01/19 1153 by | 12/03/19 1525 by | | al | specific surgical procedure; All | Benson Jose RN | Dahiana Pablo RN | | Cathet | elements; All elements; Bag | | | | er | positioned below the bladder, | | | | | System checked to verify closed | | | | | connections & no dependent loops, | | | | | obstructions/kinks; indwelling | | | | | double lumen catheter; | | | | | hydrophilic coated; 12; None, | | | | | Meatal stenosis; 1; 5; 10; none; | | | | | tolerated well; drainage bag to | | | | | dependent drainage; (burnett | | | | | balloon down, removed catheter); | | | | | 12/03/19; 1525 | | | +--------+ + + + | Drain/ | 12/01/19; 1518; #1; Right; neck; | 12/01/19 1518 by | 12/03/19 0800 by | | Device | collapsible closed device; short | Dominic Sanders RN | Dahiana Pablo RN | | Site | term use (removed by MD; not | | | | | witnessed by this RN); 12/03/19; | | | | | 0800 | | | +--------+ + + + | Arteri | 12/01/19; 1614 (present upon | 12/01/19 1614 by | 12/02/19 0500 by | | al | arrival from OR); Left; radial | Rossy Pelaez, | Miley Boykin RN | | Line | artery; Not present on shift | RN | | | | assessment; 12/02/19; 0500 | | | +--------+ + + + documented in this encounter Social History + +-------+ +--------+------+ | Tobacco [...] + + documented as of this encounter OR Notes Anesthesia Postprocedure Evaluation - Allison Segura MD - 12/01/2019 4:25 PM PDTFormat ting of this note might be different from the original. ANESTHESIA POSTANESTHESIA EVALUATION Buck Bell 74 y.o. male 1945 [id number] Procedure(s) CAROTID ENDARTERECTOMY (Right Neck) Cooperates? Yes Mental Status Performs simple tasks. Respiratory Satisfactory - Airway patent (self maintained). Cardiovascular Satisfactory - Blood pressure and heart rate acceptable Temperature Satisfactory Pain Satisfactory N/V Control Satisfactory Hydration Satisfactory - No signs of dehydration Adverse Events ADVERSE EVENTS: No adverse events Vitals Value Taken Time Temp 36.1 C (96.9 F) 12/01/19 1614 Pulse 102 12/01/19 1623 Resp 25 12/01/19 1623 BP 95/54 12/01/19 1620 Arterial Line BP 95/49 12/01/19 1623 Arterial Line BP 2 SpO2 98 % 12/01/19 1623 Vitals shown include unvalidated device data. Electronically signed by Allison Segura MD 12/01/2019 4:25 PM PDT [facility] nesthesia Procedure Notes - Allison Segura MD - 12/01/2019 12:41 PM PDTA ssociated Order(s): AirwayAnesthesia Airway Placement 12/01/2019 11:51 AM Preprocedure check: patient identified, oxygen, airway assessed, patient reassessment prior to induction, airway equipment checked and suction Mask ventilation: easy Successful technique: Mac Laryngoscope blade size: 3 Airway grade: 1 (Full view of glottis) Other equipment: stylette Attempts: 1 Airway type: endotracheal Size: 8 Cuffed: cuffed Route, reference point: left side of mouth Tube depth: 24 cm Tube secured with: adhesive tape Trauma: none Tube placement verification: bilateral chest rise and carbon dioxide detection Performing provider: Allison Segura MD Authorizing provider: Allison Segura MD Please see intraoperative grid for any additional medication documentation. nesthesia Preproce dure Evaluation - Allison Segura MD - 11/30/2019 10:23 PM PDTFormatting of this note gisel ht be different from the original. ANESTHESIA PREANESTHESIA EVALUATION Buck Bell 74 y.o. male 1945 [id number] Procedure(s): CAROTID ENDARTERECTOMY (Right Neck) Review of Systems / Med History Cardiovascular (+) hypertension . Endocrine (+) obesity: BMI (30-39) Neuromuscular (+) CVA. Anesthesia Physical Exam Anesthesia Plan ASA: 3 Type: General. GETA + arterial line Induction: Potential problems: Monitors: Standard ASA monitors. Arterial line to aid in hemodynamic monitoring. documented in this encounter Miscellaneous Notes Anesthesia Post-op Handoff - Allison Segura MD - 12/01/2019 4:18 PM PDTFormatting of t his note might be different from the original. ANESTHESIA HANDOFF NOTE Buck Bell 74 y.o. male 1945 [id number] CAROTID ENDARTERECTOMY (Right Neck) HANDOFF NOTE Handoff Protocol Used: post-procedure handoff checklist completed The following were completed during the transfer of care: 1. Identification of patient 2. Identification of responsible practitioner (primary service) 3. Discussion of pertinent medical history 4. Discussion of the surgical/procedure course (procedure, reason for surgery, procedure pe rformed) 5. Intraoperative anesthetic management and issues/concerns 6. Expectations/plans for the early post-procedure period 7. Opportunity for questions and acknowledgement of understanding of report from receiving team Patient Location: Phase I Condition: awake Airway/O2: face mask with O2 Multimodal analgesia: multimodal analgesia used between 6 hours prior to anesthesia start t o PACU discharge Two or more PATRICIA mitigation strategies used: perioperative obstructive sleep apnea intervent ions applied The significant anesthesia concerns and VS in Epic were reviewed with the receiving team. Allison Segura MD 12/01/2019 4:18 PM PDT [facility] documented in this encounter Plan of Treatment [...] | | | | | [address] [facility] [facility] | | | | | | [place] [address] | | | | | | [phone] | | | | | | | | +--------+ + + + + | 03/13/ | Office | Neurology | Veronica, | | | 2019 | Visit | | [address] | | | | | | [address] [facility], | | | | | | [place] [address] | | | | | | [phone] | | | | | | | [...] + + documented in this encounter Results Airway (12/01/2019 12:41 PM PDT) + + [...] medication documentation. | | + + + documented in this encounter Visit Diagnoses Not on filedocumented in this encounter Administered Medications + +---------+ +------+------+------+ | Medication Order | MAR | Action | Dose | Rate | Site | | | Action | Date | | | | + +---------+ +------+------+------+ | balanced electrolytes in water | New Bag | 12/01/19 | | | | | (PLASMALYTE-148/NORMOSOL-R) | | 20 1:33 | | | | | infusion at 30 mL/hr, | | PM PDT | | | | | Intravenous, CONTINUOUS, Starting | | | | | | | 12/01/19 at 1000 | | | | | | + +---------+ +------+------+------+ +---------+ +---+---+---+ | New Bag | 12/01/19 | | | | | | 20 11:00 | | | | | | AM PDT | | | | +---------+ +---+---+---+ +---+---+ | | | +---+---+ + +-------+ +-----+---+---+ | ceFAZolin in dextrose (ANCEF) | Given | 12/01/19 | 2 g | | | | IVPB 2 g 2 g, Intravenous, | | 20 3:21 | | | | | Administer over 30 Minutes, Prior | | PM PDT | | | | | to Incision, Starting Fri | | | | | | | 12/01/19 at 0934, For 1 dose, Keep | | | | | | | in refrigerator., Indications: | | | | | | | Surgical Prophylaxis | | | | | | + +-------+ +-----+---+---+ +-------+ +-----+---+---+ | Given | 12/01/19 | 2 g | | | | | 20 11:52 | | | | | | AM PDT | | | | +-------+ +-----+---+---+ +---+---+ | | | +---+---+ + +-------+ +------+---+---+ | dexamethasone (DECADRON) 4 | Given | 12/01/19 | 4 mg | | | | mg/mL injection Intravenous, | | 20 12:09 | | | | | PRN, Starting Fri 17/20 at | | PM PDT | | | | | 1209, Anesthesia Intra-op | | | | | | + +-------+ +------+---+---+ +---+---+ | | | +---+---+ + +-------+ +-------+---+---+ | ePHEDrine 5 mg/mL injection | Given | 12/01/19 | 10 mg | | | | Intravenous, PRN, Starting Wed | | 20 3:42 | | | | | 12/01/19 at 1540, Anesthesia | | PM PDT | | | | | Intra-op | | | | | | + +-------+ +-------+---+---+ +-------+ +-------+---+---+ | Given | 12/01/19 | 10 mg | | | | | 20 3:40 | | | | | | PM PDT | | | | +-------+ +-------+---+---+ +---+---+ | | | +---+---+ + +-------+ +--------+---+---+ | fentaNYL (PF) injection | Given | 12/01/19 | 25 mcg | | | | Intravenous, PRN, Starting Fri | | 20 11:49 | | | | | 12/01/19 at 1136, Anesthesia | | AM PDT | | | | | Intra-op | | | | | | + +-------+ +--------+---+---+ +-------+ +--------+---+---+ | Given | 12/01/19 | 25 mcg | | | | | 20 11:36 | | | | | | AM PDT | | | | +-------+ +--------+---+---+ +---+---+ | | | +---+---+ + +-------+ +--------+---+---+ | glycopyrrolate (ROBINUL) | Given | 12/01/19 | 0.6 mg | | | | injection Intravenous, PRN, | | 20 3:25 | | | | | Starting 12/01/19 at 1211, | | PM PDT | | | | | Anesthesia Intra-op | | | | | | + +-------+ +--------+---+---+ +-------+ +--------+---+---+ | Given | 12/01/19 | 0.4 mg | | | | | 20 3:18 | | | | | | PM PDT | | | | +-------+ +--------+---+---+ | Given | 12/01/19 | 0.4 mg | | | | | 20 12:14 | | | | | | PM PDT | | | | +-------+ +--------+---+---+ +---+---+ | | | +---+---+ + +-------+ +--------+---+---+ | heparin 1,000 units/mL | Given | 12/01/19 | 1,000 | | | | injection Intravenous, PRN, | | 20 2:59 | Units | | | | Starting Wed12/01/19 at 1356, | | PM PDT | | | | | Anesthesia Intra-op | | | | | | + +-------+ +--------+---+---+ +-------+ +--------+---+---+ | Given | 12/01/19 | 8,000 | | | | | 20 1:56 | Units | | | | | PM PDT | | | | +-------+ +--------+---+---+ +---+---+ | | | +---+---+ + +-------+ +-------+---+---+ | hydrALAZINE (APRESOLINE) | Given | 12/01/19 | 10 mg | | | | injection Intravenous, PRN, | | 20 3:36 | | | | | Starting Wed12/01/19 at 1536, | | PM PDT | | | | | Anesthesia Intra-op | | | | | | + +-------+ +-------+---+---+ +---+---+ | | | +---+---+ + +-------+ +-------+---+---+ | lidocaine (PF) 2% injection | Given | 12/01/19 | 80 mg | | | | Intravenous, PRN, Starting Wed | | 20 11:49 | | | | | 12/01/19 at 1149, Anesthesia | | AM PDT | | | | | Intra-op | | | | | | + +-------+ +-------+---+---+ +---+---+ | | | +---+---+ + +-------+ +------+---+---+ | neostigmine (BLOXIVERZ) 1 mg/mL | Given | 12/01/19 | 3 mg | | | | injection Intravenous, PRN, | | 20 3:25 | | | | | Starting 12/01/19 at 1525, | | PM PDT | | | | | Anesthesia Intra-op | | | | | | + +-------+ +------+---+---+ +---+---+ | | | +---+---+ + +-------+ +------+---+---+ | ondansetron (ZOFRAN) injection | Given | 12/01/19 | 4 mg | | | | Intravenous, PRN, Starting Fri | | 20 12:09 | | | | | 12/01/19 at 1209, Anesthesia | | PM PDT | | | | | Intra-op | | | | | | + +-------+ +------+---+---+ +---+---+ | | | +---+---+ + +-------+ +---------+---+---+ | phenylephrine (MARVIN-SYNEPHRINE, | Given | 12/01/19 | 100 mcg | | | | VAZCULEP) 10 mg per mL injection | | 20 3:56 | | | | | Intravenous, PRN, Starting Fri | | PM PDT | | | | | 12/01/19 at 1406, Anesthesia | | | | | | | Intra-op | | | | | | + +-------+ +---------+---+---+ +-------+ +---------+---+---+ | Given | 12/01/19 | 100 mcg | | | | | 20 2:06 | | | | | | PM PDT | | | | +-------+ +---------+---+---+ +---+---+ | | | +---+---+ + + + +---------+-------+---+ | phenylephrine (MARVIN-SYNEPHRINE, | Rate/Dos | 12/01/19 | 20 | 0.1 | | | VAZCULEP) 10 mg/mL injection | e Change | 20 3:28 | mcg/min | mL/hr | | | Intravenous, CONTINUOUS PRN, | | PM PDT | | | | | Starting 12/01/19 at 1227, | | | | | | | Anesthesia Intra-op | | | | | | + + + +---------+-------+---+ + + +---------+-------+---+ | Rate/Dose Change | 12/01/19 | 30 | 0.2 | | | | 20 3:22 | mcg/min | mL/hr | | | | PM PDT | | | | + + +---------+-------+---+ | Rate/Dose Change | 12/01/19 | 40 | 0.2 | | | | 20 3:13 | mcg/min | mL/hr | | | | PM PDT | | | | + + +---------+-------+---+ +---+---+ | | | +---+---+ + +-------+ +-------+---+---+ | propofol (DIPRIVAN) injection | Given | 12/01/19 | 30 mg | | | | Intravenous, PRN, Starting Wed | | 20 2:31 | | | | | 7/17/20 at 1149, Anesthesia | | PM PDT | | | | | Intra-op | | | | | | + +-------+ +-------+---+---+ +-------+ +--------+---+---+ | Given | 12/01/19 | 70 mg | | | | | 20 12:00 | | | | | | PM PDT | | | | +-------+ +--------+---+---+ | Given | 12/01/19 | 130 mg | | | | | 20 11:49 | | | | | | AM PDT | | | | +-------+ +--------+---+---+ +---+---+ | | | +---+---+ + + + + +-------+---+ | propofol infusion (DIPRIVAN) 10 | Rate/Dos | 12/01/19 | 40 | 20.5 | | | mg/mL infusion Intravenous, | e Change | 20 2:37 | mcg/kg/m | mL/hr | | | CONTINUOUS PRN, Starting Fri | | PM PDT | in | | | | 12/01/19 at 1217, Anesthesia | | | | | | | Intra-op | | | | | | + + + + +-------+---+ + + + +-------+---+ | Rate/Dose Change | 12/01/19 | 50 | 25.6 | | | | 20 2:08 | mcg/kg/m | mL/hr | | | | PM PDT | in | | | + + + +-------+---+ | Rate/Dose Change | 12/01/19 | 30 | 15.4 | | | | 20 2:01 | mcg/kg/m | mL/hr | | | | PM PDT | in | | | + + + +-------+---+ +---+---+ | | | +---+---+ + + + + +-------+---+ | remifentanil (ULTIVA) injection | Rate/Dos | 12/01/19 | 0.07 | 0.4 | | | Intravenous, CONTINUOUS PRN, | e Change | 20 1:36 | mcg/kg/m | mL/hr | | | Starting 12/01/19 at 1206, | | PM PDT | in | | | | Anesthesia Intra-op | | | | | | + + + + +-------+---+ +---------+ + +-------+---+ | New Bag | 12/01/19 | 0.05 | 0.3 | | | | 20 12:06 | mcg/kg/m | mL/hr | | | | PM PDT | in | | | +---------+ + +-------+---+ +---+---+ | | | +---+---+ + +-------+ +-------+---+---+ | rocuronium (ZEMURON) injection | Given | 12/01/19 | 10 mg | | | | Intravenous, PRN, Starting Fri | | 20 1:32 | | | | | 12/01/19 at 1149, Anesthesia | | PM PDT | | | | | Intra-op | | | | | | + +-------+ +-------+---+---+ +-------+ +-------+---+---+ | Given | 12/01/19 | 50 mg | | | | | 20 11:49 | | | | | | AM PDT | | | | +-------+ +-------+---+---+ +---+---+ | | | +---+---+ + +---------+ +---------+ +---+ | sodium chloride 0.9% (NS) 250 | New Bag | 12/01/19 | 20 | 30 mL/hr | | | mL with phenylephrine | | 20 12:03 | mcg/min | | | | (MARVIN-SYNEPHRINE, VAZCULEP) 10 mg | | PM PDT | | | | | per mL 10 mg infusion | | | | | | | Intravenous, CONTINUOUS, Starting | | | | | | | 12/01/19 at 1015, Intra-op | | | | | | + +---------+ +---------+ +---+ +---+---+ | | | +---+---+ documented in this encounter"
--- OUTSIDE RECORDS SUMMARY | ~2019-12-22 | XMS | Encounter Summary ---
Demographics + + + | Address | [address] | | | [place] [address] | + + + | Home Phone | | + + + | Preferred Language | Unknown | + + + | Marital Status | Single | + + + | Yazdanism Affiliation | 1041 | + + + | Race | Unknown | + + + | Ethnic Group | Unknown | + + + Author + + + | Author | [facility] | | | and [place] | + + + | Organization | [facility] | | | and [...] Team Providers + +------+ + | Care Geochemist Name | Role | Phone | + +------+ + | Dominic Carlin MD | PCP | | + +------+ + Encounter Details +--------+ + + + + | Date | Type | Department | Care Team | Description | +--------+ + + + + | 12/25/ | [facility] | [facility] | Haroldo King | Cervical spondylosis | | 2015 | Encounter | MED CTR XRAY [address] | [address] | with myelopathy; | | | | [place] | [address] [place] | Degenerative disc | | | | [place] [address] | [address] | disease, cervical; | | | | [phone] | | Cervical cord | | | | | | myelomalacia (HCC); | | | | | | S/P cervical spinal | | | | | | fusion | +--------+ + + + + Social [...] tablet by | 90 | 3 | 03/13/20 | | | (FLEXERIL) 10 mg | [...] [place] | | | | | | [place] [address] | | | | | | [phone] | | | | | | | | +--------+ + + + + | 03/13/ | Office | Neurology | Veronica, | | | 2019 | Visit | | [address] | | | | | | [address] [facility], | | | | | | [place] [address] | | | | | | [phone] | | | | | | | | +--------+ + + + + documented as of this encounter Procedures + +--------+ + + + | Procedure Name | Priori | Date/Time | Associated Diagnosis | Comments | | | ty | | | | + +--------+ + + + | XR CERVICAL SPINE 2 | Routin | 12/25/2014 | Cervical | Results for this | | OR 3 VIEWS | e | 7:38 AM | spondylosis with | procedure are in the | | | | PDT | myelopathy | results section. | | | | | Degenerative disc | | | | | | disease, cervical | | | | | | Cervical cord | | | | | | myelomalacia (HCC) | | | | | | S/P cervical spinal | | | | | | fusion | | + +--------+ + + + documented in this encounter Results XR CERVICAL SPINE 2 [...] | + + + + + | [facility] | [address] | [place] | [phone] | | [facility] | | [address] | | | - IMAGING | | | | + + + + + documented in this encounter Visit Diagnoses + + | Diagnosis | + + | Cervical spondylosis with myelopathy | + + | Degenerative disc disease, cervical Degeneration of cervical intervertebral disc | + + | Cervical cord myelomalacia (HCC) Other myelopathy | + + | S/P cervical spinal fusion Arthrodesis status | + + documented in this encounter"
--- OUTSIDE RECORDS SUMMARY | ~2019-12-22 | XMS | Encounter Summary ---
Demographics + + + | Address | [address] | | | [place] [address] | + + + | Home Phone | | + + + | Preferred Language | Unknown | + + + | Marital Status | Single | + + + | Methodist Affiliation | 1041 | + + + | Race | Unknown | + + + | Ethnic Group | Unknown | + + + Author + + + | Author | [facility] | | | and [place] | + + + | Organization | [facility] | | | [...] Team Providers + +------+ + | Care Proposal Rep Name | Role | Phone | + +------+ + | Dominic Carlin MD | PCP | | + +------+ + Reason for Visit + +--------+ + | Reason | Onset | Comments | | | Date | | + +--------+ + | Consultation | 10/11/ | | | | 2020 | | + +--------+ + Encounter Details +--------+ + + + + | Date | Type | Department | Care Team | Description | +--------+ + + + + | 10/11/ | Telephone | [facility] | Luan Gamble MD | Consultation | | 2019 | | [facility] | [address] | | | | | CLIN[address] | [place] | | | | | [address] [place], | [address] | | | | | [place] [address] | | | | | | [phone] | | | +--------+ + + + [...] this encounter Miscellaneous Notes Telephone Encounter - Megan Robles - 10/12/2019 2:10 PM PDTELMA Lennon Please call the referring provider to discuss some recommendations and the plan of care [facility] forward for this patient. Please call: ELMA Lennon documented in this encount er Plan of Treatment +--------+ + + + [...] | | | | | | [address] [facility] | | | | | | [place] [address] | | | | | | [phone] | | | | | | | | +--------+ + + + + | 03/13/ | Office | Neurology | Veronica, | | | 2019 | Visit | | [address] | | | | | | [address] [place], | | | | | | [place] [address] | | | | | | [phone] | | | | | | | | +--------+ + + + + documented as of this encounter Visit Diagnoses Not on filedocumented in this encounter"
--- OUTSIDE RECORDS SUMMARY | ~2019-12-22 | XMS | Encounter Summary ---
Demographics + + + | Address | [address] | | | [place] [address] | + + + | Home Phone | | + + + | Preferred Language | Unknown | + + + | Marital Status | Single | + + + | Sabianist Affiliation | 1041 | + + + [...] Phone | + + +---------+ + | Breanneotilio Burns | ECON | Unknown | | + + +---------+ + Care Team Providers + +------+ + | Care Christmas Tree Grader Name | Role | Phone | + +------+ + PCP | Unavailable | + +------+ + Encounter Details +--------+ + + + + | Date | Type | Department | Care Team | Description | +--------+ + + + + | 04/29/ | Hospital | [facility] | | | | 1999 | Encounter | [address] | | | | [address] | | | | | | [place] | | | | | | [address] | | | | | | [phone] | | | +--------+ + + + [...] | | | | | | [address] | | | | | | [place] [address] | | | | | | [phone] | | | | | | | | +--------+ + + + + | 03/13/ | Office | Neurology | Veronica, | | | 2019 | Visit | | [address] | | | | | | [address] [place], | | | | | | [place] [address] | | | | | | [phone] | | | | | | | | +--------+ + + + + documented as of this encounter Visit Diagnoses Not on filedocumented in this encounter"
--- OUTSIDE RECORDS SUMMARY | ~2019-12-22 | XMS | Clinical Summary ---
Demographics + + + | Address | [address] | | | [place] [address] | + + + | Home Phone | | + + + | Preferred Language | Unknown | + + + | Marital Status | Single | + + + | Buddhism Affiliation | Unknown | + + + [...] Team Providers + +------+ + | Care Physical Medicine Specialist Name | Role | Phone | + +------+ + PCP | Unavailable | + +------+ + Source Comments JOSSUE is fully live on both [facility] Ambulatory and [facility] InPatient.[facility] Allergies No Known Allergies Medications + + [...] | | | + +--------+ +--------+-------+---------+--------+ | [facility] | SPANISH | xxxxxxxxx | Effect | | | [...] Person | Self | [birth year] | [address] | | | al/Cristi | | 1945 | [phone] | [place] | | | carolyn | | | 4 (Home) | [address] | | | | | | [phone] | | | | | | | 0 (Work) | | + +--------+ +--------+ + + | Buck Bell | Agency | Self | [birth year] | | [address] | | | | | 1945 | [phone] | [place] | | | | | | 4 (Home) | [address] | | | | | | [phone] | | | | | | | 0 (Work) | | + +--------+ +--------+ + + Advance Directives + + + + + | Type | Date Recorded | Patient | Explanation | | | | Orientation & Mobility Specialist | | + + + + + | Advance | | | | | Directives and | | | | | Living Will | | | | + + + + + | Power of | | | | | Manager Voice | | | | + + + + +
--- OUTSIDE RECORDS SUMMARY | ~2019-12-22 | XMS | Encounter Summary ---
Demographics + + + | Address | [address] | | | [place] [address] | + + + | Home Phone | | + + + | Preferred Language | Unknown | + + + | Marital Status | Single | + + + | Bahai Affiliation | 1041 | + + + | Race | Unknown | + + + | Ethnic Group | Unknown | + + + Author + + + | Author | [facility] | | | and [place] | + + + | Organization | [facility] | | [...] Team Providers + +------+ + | Care Welder Apprentice Combination Name | Role | Phone | + +------+ + | Dominic Carlin MD | PCP | | + +------+ + Encounter Details +--------+ + + + + | Date | Type | Department | Care Team | Description | +--------+ + + + + | 09/11/ | Orders Only | [facility] | Leslie Brito | | | 2016 | | [address] | MD [place] [address] | | | | | [place] | [address] | | | | | [place], [place] | [place] | | | | | [address] | [address] | | | | | [phone] | [phone] | | | | | | | [...] [place] | | | | | | [place] [address] | | | | | | [phone] | | | | | | | | +--------+ + + + + | 03/13/ | Office | Neurology | Veronica, | | | 2019 | Visit | | [address] | | | | | | [address] [place], | | | | | | [place] [address] | | | | | | [phone] | | | | | | | | +--------+ + + + + documented as of this encounter Procedures + +--------+ + + + | Procedure Name | Priori | Date/Time | Associated Diagnosis | Comments | | | ty | | | | + +--------+ + + + | ECHO INTERPRETATION | Routin | 09/12/2015 | | Results for this | | OF OUTSIDE FILMS | e | 1:54 PM | | procedure are in the | | | | PDT | | results section. | + +--------+ + + + documented in this encounter Results ECHO Interpretation of Outside Films (09/12/2015 1:54 PM PDT) + + | Specimen | + + | | + + + + + | Impressions | Performed At | + + + | 1. See Dictation. 2. Mild concentric LVH, systolic function NML, | | | Grade 1 diastolic abnormality, [place] visually estimates LVEF 65-70%. | | | Mild LAE. RA NML. Mild RVE with preserved systolic function. 3. | | | Mitral valve has mild nodular calcification, mild MAC, trace MR. | | | Aortic, Tricuspid, and Pulmonic valves grossly NML. No /AI. | | | Trace TR. 4. No Pericardial effusion. 5. IVC appears NML, inadequate | | | TR to estimate PAP. 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 | | + + + + + + | Narrative | Performed At | + + + | Patient Name: Buck Bell Date of : 1945 | | | Performing Physician: Allen Grant DO | | | | | | INDICATIONS cva CONCLUSIONS 1. See | | | Dictation. 2. Mild concentric LVH, systolic function NML, Grade 1 | | | diastolic abnormality, [place] visually estimates LVEF 65-70%. Mild | | | LAE. RA NML. Mild RVE with preserved systolic function. 3. Mitral | | | valve has mild nodular calcification, mild MAC, trace MR. Aortic, | | | Tricuspid, and Pulmonic valves grossly NML. No /AI. Trace TR. | | | 4. No Pericardial effusion. 5. IVC appears NML, inadequate TR to | | | estimate PAP. 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 FINDINGS | | | -------- ECG rhythm: Sinus rhythm with extra systolic beats. Left | | | Ventricle: Overall left ventricular systolic function is normal with, | | | an EF between 65 - 70 %. Left Ventricle: The left ventricle cavity | | | size is normal. Left Ventricle: There is mild concentric left | | | ventricular hypertrophy. Left Ventricle: The diastolic filling | | | pattern indicates impaired relaxation consistent with mild dysfunction | | | (Grade I). Right Ventricle: The right ventricle is mildly enlarged | | | measuring between 3.4 - 3.7 cm. Right Ventricle: The right | | | ventricular systolic function is normal. Left Atrium: The left atrium | | | is mildly dilated. Right Atrium: The right atrium is normal in size. | | | Aortic Valve: The aortic valve is trileaflet and appears | | | structurally normal. Aortic Valve: There is no evidence of aortic | | | regurgitation. Aortic Valve: There is no evidence of aortic stenosis. 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 | | | Mitral Valve: There is trace mitral regurgitation. Mitral Valve: Mild | | | mitral annular calcification present. Tricuspid Valve: The tricuspid | | | valve appears structurally normal. Tricuspid Valve: Trace tricuspid | | | regurgitation present. Pulmonic Valve: Pulmonic valve appears | | | structurally normal. Pericardium: There is no pericardial effusion. | | | IVC/Hepatic Veins: The IVC is small (<1.5cm) and collapses with sniff, | | | consistent with central venous pressures of 0-5mmHg. MEASUREMENTS | | | Brim Greaser Operator: DEMARCO Authenticated by: Allen Grant | | | DO Report Date/Time: -- [id number] | | + + + + + | Procedure Note | + + | Eldon, Rad Conversion - 01/05/2019 8:26 PM PDT Patient Name: Yonny Bell of | | : 1945 Performing Physician: Allen Grant | | DO INDICATIONS c | | va CONCLUSIONS 1. See Dictation. 2. Mild concentric LVH, systolic function | | NML, Grade 1 diastolic abnormality, [place] visually estimates LVEF 65-70%. Mild LAE. | | RA NML. Mild RVE with preserved systolic function. 3. Mitral valve has mild nodular | | calcification, mild MAC, trace MR. Aortic, Tricuspid, and Pulmonic valves grossly NML. | | No /AI. Trace TR. 4. No Pericardial effusion. 5. IVC appears NML, inadequate TR to | | estimate PAP. 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 FINDINGS--------ECG rhythm: Sinus | | rhythm with extra systolic beats.Left Ventricle: Overall left ventricular systolic | | function is normal with, an EF between 65 - 70 %.Left Ventricle: The left ventricle | | cavity size is normal.Left Ventricle: There is mild concentric left ventricular | | hypertrophy.Left Ventricle: The diastolic filling pattern indicates impaired relaxation | | consistent with mild dysfunction (Grade I).Right Ventricle: The right ventricle is | | mildly enlarged measuring between 3.4 - 3.7 cm.Right Ventricle: The right ventricular | | systolic function is normal.Left Atrium: The left atrium is mildly dilated.Right Atrium: | | The right atrium is normal in size.Aortic Valve: The aortic valve is trileaflet and | | appears structurally normal.Aortic Valve: There is no evidence of aortic | | regurgitation.Aortic Valve: There is no evidence of aortic stenosis.Mitral Valve: Mitral | | valve is thickened with nodular degeneration.Mitral Valve: There is trace mitral | | regurgitation.Mitral Valve: Mild mitral annular calcification present.Tricuspid Valve: | | The tricuspid valve appears structurally normal.Tricuspid Valve: Trace tricuspid | | regurgitation present.Pulmonic Valve: Pulmonic valve appears structurally | | normal.Pericardium: There is no pericardial effusion.IVC/Hepatic Veins: The IVC is small | | (<1.5cm) and collapses with sniff, consistent with central venous pressures of 0-5mmHg. | | MEASUREMENTS Brim Greaser Operator: HERLINDAuthenticated by: Allen Morris | | Date/Time: -- [id number] IMPRESSION: 1. See Dictation. 2. Mild concentric | | LVH, systolic function NML, Grade 1 diastolic abnormality, [place] visually estimates | | LVEF 65-70%. Mild LAE. RA NML. Mild RVE with preserved systolic function. 3. Mitral | | valve has mild nodular calcification, mild MAC, trace MR. Aortic, Tricuspid, and | | Pulmonic valves grossly NML. No /AI. Trace TR. 4. No Pericardial effusion. 5. IVC | | appears NML, inadequate TR to estimate PAP. 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 | |Mitral Valve: There is trace mitral regurgitation. | |Mitral Valve: Mild mitral annular calcification present. | |Tricuspid Valve: The tricuspid valve appears structurally normal. | |Tricuspid Valve: Trace tricuspid regurgitation present. | |Pulmonic Valve: Pulmonic valve appears structurally normal. | |Pericardium: There is no pericardial effusion. | |IVC/Hepatic Veins: The IVC is small (<1.5cm) and collapses with sniff, consistent with cent ral venous pressures of 0-5mmHg. | | | |MEASUREMENTS | | | | | |Brim Greaser Operator: | |Authenticated by: Allen Grant DO | |Report Date/Time: -- [id number] | | | |IMPRESSION: | |1. See Dictation. 2. Mild concentric LVH, systolic function NML, Grade 1 diastolic abnorma lity, [place] visually estimates LVEF 65-70%. Mild LAE. RA NML. Mild RVE with preserved sy stolic function. 3. Mitral valve has | |mild nodular calcification, mild | |MAC, trace MR. Aortic, Tricuspid, and Pulmonic valves grossly NML. No /AI. Trace TR. 4. No Pericardial effusion. 5. IVC appears NML, inadequate TR to estimate PAP. 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 | + + documented in this encounter Visit Diagnoses Not on filedocumented in this encounter"
--- OUTSIDE RECORDS SUMMARY | ~2019-12-22 | XMS | Encounter Summary ---
Demographics + + + | Address | [address] | | | [place] [address] | + + + | Home Phone [...] Author + + + | Author | [facility] | | | and [place] | + + + | Organization | [facility] | | | [...] Team Providers + +------+ + | Care Forming Machine Operator Name | Role | Phone | [...] | | | | | | | [place] | | | | | | | [...] + + | 07/26/ | Hospital | [facility] | Wes Melvin MD | Other myelopathy | | 2014 | Encounter | MED CTR XRAY [address] | ([facility]) | | | | [place] | [place] [address] | | | | | [place] [address] | [phone] | | | | | [phone] | | | +--------+ + + + [...] [address] | | | | | | [place] | | | | | | [place] [address] | | | | | | [phone] | | | | | | | | +--------+ + + + + | 03/13/ | Office | Neurology | Veronica, | | | 2019 | Visit | | [address] | | | | | | [address] [facility] [place], | | | | | | [place] [address] | | | | | | [phone] | | | | | | | | +--------+ + + + + documented as of this encounter Procedures + +--------+ + + + | Procedure Name | Priori | Date/Time | Associated Diagnosis | Comments | | | ty | | | | + +--------+ + + + | [place] JAGRUTI STATS NO | Routin | 07/26/2014 | Other myelopathy | Results for this | | CHARGE | e | 1:42 PM | ([facility]) | procedure are in the | | | | PDT | | results section. | + +--------+ + + + documented in this encounter Results EMILY Coats No Pranav (07/26/2014 1:42 PM PDT) + + | Specimen | + + | | + + + + + | Narrative | Performed At | + + + | No Radiologist interpretation, please see Chart Review. | [facility] | | | [facility] | | | [facility] | | | - IMAGING | + + + + + + + + | Performing | Address | City/State/Zipcode | Phone Number | | Organization | | | | + + + + + | [facility] | [address] | [place] | [phone] | | [facility] | | [address] | | | - IMAGING | | | | + + + + + documented in this encounter Visit Diagnoses + + | Diagnosis | + + | Other myelopathy | + + documented in this encounter"
--- OUTSIDE RECORDS SUMMARY | ~2019-12-22 | XMS | Encounter Summary ---
Demographics + + + | Address | [address] | | | [place] [address] | + + + | Home Phone | | + + + | Preferred Language | Unknown | + + + | Marital Status | Single | + + + | Shinto Affiliation | 1041 | + + + | Race | Unknown | + + + | Ethnic Group | Unknown | + + + Author + + + | Author | [facility] | | | and [place] | + + + | Organization | [facility] | | | [...] Team Providers + +------+ + | Care Test Kitchen Home Economist Name | Role | Phone | + [...] | | | | | | | [place] | | | | | | | [...] + + | 11/30/ | Hospital | [facility] | Salvador Jose MD | Carotid stenosis, | | 2019 - | Encounter | [facility] | [address] | right; Carotid | | | | [address] | [facility] | stenosis, right | | 12/02/ | | [place], [place] | [place] [address] | | | 2019 | | [address] | [phone] | | | | | [phone] | | | +--------+ + + + [...] + + + | Blood Pressure | 136/63 | 12/03/2019 3:10 PM | | | | | PDT | | + + + + + | Pulse | 96 | 12/03/2019 3:10 PM | | | [...] + | Oxygen Saturation | 100% | 12/03/2019 12:00 PM | | | [...] documented as of this encounter Discharge Summaries Fatou Morales PA-C - 12/03/2019 12:46 PM PDTFormatting of this note might be different fr om the original. Physician Discharge Summary Patient ID: Buck Bell [id number] 74 y.o. 1945 Admit date: 12/01/2019 Discharge date and time: No discharge date for patient encounter. Admitting Physician: Salvador Jose MD Discharge Physician: Fatou Morales PA-c Admission Diagnoses: Carotid stenosis, right [I65.21] Discharge Diagnoses: Vascular dementia, history of CVA Admission Condition: symptomatic right carotid stenosis Discharged Condition: Vascular dementia, right carotid is stable Indication for Admission: surgical treatment of symptomatic right carotid stenosis Hospital Course: Patient admitted on 12/01/2019 for a right carotid endarterectomy. Patient tolerated the procedure well and was transferred to the floor. Overnight patient had incre ased swelling along the right side of his neck without any difficulty breathing. He had inc reased LEXA output of 205 cc since surgery. Patient required Gina-Synephrine overnight. On P OD 1 patient was found to be hemodynamically stable his blood pressure was stable. His Gina-Synephrine was discontinued. During the afternoon the nurses reported some confusio n and increased aggression. Patient required restraints and Haldol was administered. On PO D 2 patient was restrained however cooperative. Patient's family was telephoned for dischar ge planning. John Sam, and Julian were called to be made aware of the patient's increased confusion. Both John and Julian requested that the patient be discharged home with family care. The patient lives across the [address] from one brother and 100 yards from his second br other. The family reports that his confusion is improved upon discharge. Arrangements were made so that the family could assess Mr. Buck Bell prior to the discharge. Both Dr. Darrin talley and NICKOLAS Pepper, discussed the discharge with the family and they believed they co uld safely care for this patient. Discharge Exam: Constitutional: Well nourished, no signs of distress HENT: right neck hematoma stable Cardiovascular: Normal rate, regular rhythm Pulmonary/Chest: No respiratory distress. Abdominal: Soft. Musculoskeletal: Normal range of motion. Extremities: wwp Neurological: Alert and oriented. 4/5 strength equal in all 4 extremities VASCULAR: Palpable radial bilaterally Disposition: home with family care Patient Instructions: Discharge Medications Unchanged Medications Details acetaminophen 325 mg tablet Take 650 mg by mouth every 4 hours as needed for Pain. aka: TYLENOL amLODIPine 10 MG tablet Take 10 mg by mouth daily. aka: NORVASC aspirin 81 MG tablet Take 81 mg by mouth daily. atorvaSTATin 80 MG tablet Take 80 mg by mouth daily. aka: LIPITOR butalbital-acetaminophen 25-325 mg per tablet Take 2 tablets by mouth every 4 hours as needed for Headaches. aka: ALLZITAL cholecalciferol 125 mcg (5,000 units) tablet Take 125 mcg by mouth Daily. aka: VITAMIN D-3 cyanocobalamin 500 mcg tablet Take 1,000 mcg by mouth Daily. aka: VITAMIN B-12 lisinopril 10 mg tablet Take 10 mg by mouth daily. aka: PRINIVIL, ZESTRIL meclizine 25 mg tablet Take 25 mg by mouth 3 times daily as needed. aka: ANTIVERT promethazine 25 mg tablet Take 1 tablet by mouth every 6 hours as needed. aka: PHENERGAN Discontinued Medications Aspirin Buf(IaUdej-TlPgag-KkL) 81 MG Tabs clopidogrel 75 mg tablet aka: PLAVIX Activity: no strenuous activity. Do not life anything greater than 5 pounds for 2 weeks. Diet: cardiac Wound Care: you may shower to clean your incision however do not immerse the wound in water , such as a bath Follow-up with Dr. Jose in 1 week. Signed: Fatou Morales PA-C 12/03/2019 12:46 PM PDT documented in this e ncounter Discharge Instructions AttachmentsThe following attachments cannot be sent through Care Everywhere.Carotid Endarte rectomy, Discharge Instructions for (Malay)documented in this encounter Medications at Time of Discharge + + + +---------+ + + | Medication | Sig | Dispensed | Refills | Start | End Date | | | | | | Date | | + + + +---------+ + + | acetaminophen | Take 650 mg by mouth | | 0 | | | | (TYLENOL) 325 mg | every 4 hours as | | | | | | tablet | needed for Pain. | | | | | + + [...] tablets by | 45 | 0 | 04/27/20 | | | butalbital-acetamino | mouth every 4 hours | tablet | | 19 | | | phen (ALLZITAL) | as needed for | | | | | | 25-325 mg per tablet | Headaches. | | | | | + + + +---------+ + + | cholecalciferol | Take 125 mcg by | | 0 | | | | (VITAMIN D-3) 125 | mouth Daily. | | | | | | mcg (5,000 units) | | | | | | | tablet | | | | | | + + + +---------+ + + | cyanocobalamin | Take 1,000 mcg by | | 0 | | | | (VITAMIN B-12) 500 | mouth Daily. | | | | | | mcg tablet | | | [...] tablet by | 30 | 0 | 12/12/20 | | | (PHENERGAN) 25 mg | mouth every 6 hours | tablet | | 19 | | | tablet | as needed. | | | | | + + + +---------+ + + documented as of this encounter Progress Notes Meredith Logan RN - 12/03/2019 7:21 PM PDTPatient is very confused and combative today, h e is on 4 point restrains and trying to bite staff. MD placed discharge order, however, fabby emery RN and this nurse (lead RN) did not feel comfortable discharging the patient. Primary RN informed NICKOLAS Morales of unsafe discharge; however, she spoke with the family and they uche crabtree agreed to take patient home. This RN talk to brother Julian and sister in law Lopez abou t patient's current health status and his safety after leaving the hospital under his condit ion. However, they felt comfortable taking the patient home either way. PSYCHIATRIC was also notifie d of the situation. Meredith Logan RN Dahiana Caba RN - 12/03/2019 3:43 PM PDTPatient's brother Julian and sister in law Lopez are at bedside. They assisted patient with changing clothes after burnett catheter removed and P IVs removed. Security x 2, transporter, and family at bedside for patient discharge. Remin ded patient's family that they can bring patient back to hospital (toe ED) if not able to garcia ndle patient at home. Patient discharged to private vehicle via , accompanied by security and family. DAHIANA PABLO RN P M Dahiana Campbell RN - 12/03/2019 3:18 PM PDTPatient's brotherJulian at bedside. Hilda cummings is not acting aggressive toward him. Fabiola OLMOS called my phone and she spoke with Denise sigala, patient's sister in law. Dr. Jose also called my phone and spoke with John. Hilda cummings will be discharged. DAHIANA PABLO RNElectronically signed by Dahiana Pablo RN at 0 3:20 PM Dahiana Campbell RN - 12/03/2019 2:19 PM PDTPatient's sister in law, John at bedside. Patient is cursing her and is aggressive toward her as well. She stated, "he's ne aisha this bad". Waiting for her and patient's brotherJulian to come to bedside. I f patient is able to calm down and follow commands, he may be able to be discharged home. F luanne definitely wants to take patient home. Will continue to monitor. DAHIANA PABLO RNElectr onically signed by Dahiana Pablo RN at 12/03/2019 2:22 PM Salvador Rose MD - 12/03/19 11:07 AM PDT [facility] Service: Vascular Surgery Progress Note Hospital Day: LOS: 0 days Post-Op Day: 2 SUBJECTIVE Patient Summary: 74 yo male s/p right CEA for symptomatic carotid stenosis Events Overnight: More aggressive overnight. Patient with known history of vascular dementia with aggressive behaviors. Calm this morning, but in 4 point restraints. LEXA remov ed. Hemodynamically stable. OBJECTIVE Vital Signs: Vitals: 12/03/19 0923 BP: 159/70 Pulse: Resp: Temp: Physical Exam Constitutional: Well nourished, no signs of distress HENT: right neck hematoma stable Cardiovascular: Normal rate, regular rhythm Pulmonary/Chest: No respiratory distress. Abdominal: Soft. Musculoskeletal: Normal range of motion. Extremities: wwp Neurological: Alert and oriented. 4/5 strength equal in all 4 extremities VASCULAR: Palpable radial bilaterally Labs: reviewed PROBLEM LIST Patient Active Problem List Diagnosis Date Noted POA Carotid stenosis, right 11/15/2019 Unknown Cerebrovascular accident (CVA) due to thrombosis of right middle cerebral artery 10/05 Unknown Benign essential hypertension 10/06/2019 Unknown Dizziness 10/06/2019 Unknown Degeneration of intervertebral disc 10/06/2019 Unknown Carotid artery stenosis 03/09/2016 Unknown Homonymous hemianopia 12/24/2015 Unknown Occipital stroke 12/24/2015 Unknown Visual hallucinations 12/24/2015 Unknown Secondary hypertension with goal blood pressure less than 130/80 12/24/2015 Unknown Hyperlipidemia 12/24/2015 Unknown S/P cervical spinal fusion 08/23/2014 Unknown High blood pressure Unknown High cholesterol Unknown Cervical spondylosis with myelopathy 01/19/2014 Unknown Cervical cord myelomalacia 01/19/2014 Unknown Degenerative disc disease, cervical 01/19/2014 Unknown ASSESSMENT & PLAN Doing well s/p right CEA. Doing better overall. Although behavior related to dementia now an issue. Would like to get patient out of hospital which is likely contributing to his sy mptoms. He is stable for discharge from a medical perspective. Will need to discuss plans with family when we are able to reach. Patient would like to go home. Stop haldol. Continu e home medications. 81 mg ASA daily. No central acting medications. Up ad mary. Sitter at bedside. Hopefully home later today. Please call with questions or concerns Salvador Jose MD Vascular Surgery Dahiana Campbell RN - 12/03/2019 10:19 AM PDTSpoke with John Bell, patient's sister in law (n ot daughter in law). She 's concerned about patient's mental status, maybe anesthesia relat ed or his PTSD. Update given. DAHIANA PABLO RN Dahiana Campbell RN - 12/03/2019 10:09 AM PDTLeft voicemail for patien t's daughter in law, John to call back. Updates will be given. DAHIANA PABLO RNElectronical ly signed by Dahiana Pablo RN at 12/03/2019 10:10 AM Dahiana Campbell RN - 12/03/2019 10: 06 AM PDTPatient sitter taken; DILEEP Camp is now sitting in patient room. Pt condition unchan ged. DAHIANA PABLO RN r padillaDahiana RN - 12/03/2019 9:48 AM PDTPt is extremely confused and combative. Currently in 4 point soft restraints. When restraints removed to boost patient in bed, he began hit ting and cursing. Restraints back on. Patient would not take po meds floated in applesauce , Refused H2O. Patient also refused to take any of his breakfast. DAHIANA PABLO RN Electro nically signed by Dahiana Pablo RN at 12/03/2019 9:51 AM Flako Delgado RN - 7:01 AM PDTSee previous note. Pt A/O to self only. Pt continues to attempt to pull at lines and threaten sitter. Soft res traints in place, assessed per protocol. R CEA site hematoma still moderately large, with s welling under & around neck. RN on floor who helped care for pt on a previous night sta lidia the swelling under/around neck has definitely worsened. MD aware. LEXA output: 10mL sanguinous. All cares & concerns will be passed on to dayshift. Swelling appears to be around back of neck now too. Chart check complete. Electronically signed by Flako Brady RN at 7:01 AM Flako Delgado RN - 12/03/2019 12:15 AM [id number] pulling at burnett and l lb, even with sitter at bedside. When RN tried to assist in boosting pt, pt kicked at RN a nd attempted to punch sitter. Pt held up his hands like claws and said, "I could murder you with these hands!" RN attempted multiple forms of de-escalation. 2345-Matthias Anderson called due to pt becoming extremely violent and agitated. Per MD, soft restr aints applied to BUE and BLE. PRN Haldol x1 administered. Dr Jose contacted due to continued change in LOC and to nurse's concerns about swelling i n neck on the right side (site of R CEA) as well as under and around neck. Nurse vocalized concerns, pointed out changes, and requested MD to come to bedside to assess. Electronicall y signed by Flako Brady, RN at 12/03/2019 1:30 AM Salvador Rose MD - 12/02/2019 6 :17 PM PDTVascular Surgery 12/02/2019 Called by nursing regarding some increased aggitation and some confusion. Patient otherwis e hemodynamically stable. Patient has a history of vascular dementia and per recent neurology note unable to make dec isions for himself. Per Neurology note: "Dementia, Vascular, mild to moderate, with behavioral changes, easy irritability,patient i s incompetent in making his medical decisions with patient refusing to take medications and performing any work up despite being symptomatic" "Dementia, Vascular, mild to moderate, with behavioral changes, easy irritability" Treatment Option- massage, Acupuncture, Over the counter heat patches (icy hot, thermacare, salonpas) , over the counter creams (aspercream, bengay cream, emu oi l), Relaxation therapy, Water therapy, Cortisone shots, Toradol Injections Suggest reading newspapers. magazines, perform word find exercises such as cross word puzz le, and scrabble, other puzzle games like Quotefish, Emissary. Play computer/mobile applications such as [employer] and [employer] GAMES "Patient cannot make medical decisions for himself as patient has been refusing most of his medications along with work-up. Due to his right internal carotid stenosis more than 85%, a vascular referral was advised but refused. In addition, given his right homonymous hemianopsia, he should not be driving a motor vehic le. Patient is not competent to make medical decisions for himself given his underlying dementi a." Plan: Continue to monitor and support. Try to limit central acting medications (narcotic). Will try to add a sleep aid. Continue to monitor UOP. Salvador Jose MD Vascular Surgery Miley Vo RN - 12/02/2019 6:10 PM PDTAt 1430 it was noted pt's mentation had declined fr om previous assessment. Pt was disoriented x2, impulsive, paranoid, and perseverating on chr onic health problems (coughing, hx of falls). Full neuro assessment performed, otherwise beulah ign/at baseline. UOP 250mL for shift, BP stable 100-120's systolic off Gina since change of s hift this AM. Discussed pt's status with MD - order obtained for Melatonin to help pt rest, and ok to leave burnett until AM to monitor UOP. Also started pt on NS @ 75mL/hr d/t inadequat e oral intake. Sitter at bedside to maintain line and tube integrity. Miley Boykin RN Salvador Rose MD - 12/02/2019 9:01 AM PDT [facility] Service: Vascular Surgery Progress Note Hospital Day: LOS: 0 days Post-Op Day: 1 SUBJECTIVE Patient Summary: 74 yo male s/p right CEA for symptomatic carotid stenosis Events Overnight: Doing much better this morning. Right neck hematoma stable, no inc rease in size. LEXA with decreased drainage. H/H stable. Vitals improved. Off gina. Sore m ostly related to recent fall prior to surgery. OBJECTIVE Vital Signs: Vitals: 12/02/19 0806 BP: 99/60 Pulse: 86 Resp: 21 Temp: 36.6 C (97.9 F) Physical Exam Constitutional: Well nourished, no signs of distress HENT: right LEXA with moderate output, right neck hematoma stable Cardiovascular: Normal rate, regular rhythm Pulmonary/Chest: No respiratory distress. Abdominal: Soft. Musculoskeletal: Normal range of motion. Extremities: wwp Neurological: Alert and oriented. 4/5 strength equal in all 4 extremities VASCULAR: Palpable radial bilaterally Labs: reviewed PROBLEM LIST Patient Active Problem List Diagnosis Date Noted POA Carotid stenosis, right 11/15/2019 Unknown Cerebrovascular accident (CVA) due to thrombosis of right middle cerebral artery 10/05 Unknown Benign essential hypertension 10/06/2019 Unknown Dizziness 10/06/2019 Unknown Degeneration of intervertebral disc 10/06/2019 Unknown Carotid artery stenosis 03/09/2016 Unknown Homonymous hemianopia 12/24/2015 Unknown Occipital stroke 12/24/2015 Unknown Visual hallucinations 12/24/2015 Unknown Secondary hypertension with goal blood pressure less than 130/80 12/24/2015 Unknown Hyperlipidemia 12/24/2015 Unknown S/P cervical spinal fusion 08/23/2014 Unknown High blood pressure Unknown High cholesterol Unknown Cervical spondylosis with myelopathy 01/19/2014 Unknown Cervical cord myelomalacia 01/19/2014 Unknown Degenerative disc disease, cervical 01/19/2014 Unknown ASSESSMENT & PLAN Doing well s/p right CEA. Does have moderate hematoma which is stable. Swelling much impr jareth overall with ice pack to neck. Keep LEXA another day. Vitals are stable. Will need PT/ OT. Family working on making home safe for patient's return. Will have case management tacho ch to see if any needed services are required. Continue ASA. Ok to stop plavix at this poi nt. Continue home medications. Up ad mary. Regular diet. Please call with questions or concerns Salvador Jose MD Vascular Surgery Salvador Rose MD - 12/01/2019 11:23 PM PDTVascular Surgery 12/01/2019 2323 hrs Called and informed that patient had increased swelling on right side of neck. Patient is not having difficulty breathing. Able to take liquids without problems. LEXA has had out 205 cc since surgery, ~ 30cc/hr. Patient otherwise hemodynamically stable. BP stable. He has a moderate hematoma on the right neck. Will defer taking back for drainage at this time. W ill continue to monitor. Ice pack to right neck. Hourly checks. Drain to bulb suction. Salvador Jose MD Vascular Surgery alu Lima RN - 12/01/2019 9:30 PM PDTNoted moderate increase in swelling in incision site that is firm to touch. LEXA draining 50 since change of shift. Pt is currently on 30mcg of gina gtt with art pressure in low 100's. Andrew OLMOS notified, stat H/H ordered. 2207 Notified Andrew OLMOS of lab results and incision appearance. 2219 PA at bedside, notified pressure applied. MD and PA at beside. No plans for surgical intervention at this time will continue to monit or. 0630 Hematoma decreased, with mild swelling present. Pt is off gina with SBP 90-100's. LEXA 1 00ml of sanguinous output. Art line DC'd. Ice applied to incision. Chart Check Complete Malu Reynoso RN documented in this en counter H&P Notes Salvador Jose MD - 12/01/2019 10:52 AM PDTSURGICAL INTERIM HISTORY & PHYSICAL UPDATE Pt. Name/Age/: Buck Bell 74 y.o. 1945 Date of admission: 12/01/2019 The current H&P was reviewed. The patient was reexamined. Re-evaluation of the patient co nfirms the necessity for the scheduled procedure. No change has occurred in the patient s condition since the H&P was completed less than 30 days ago. VERIFICATION OF CONSENT (PARQ) The patient was counseled regarding the procedure, its indications, risks, potential compli cations and alternatives. Any questions were answered. Consent was obtained. Electronically signed by: Salvador Jose MD, 12/01/2019 10:52 AM PDT [facility] MD - 0 11/15/2019 10:30 AM [facility] [address] [place] [address] [place] [address] Office: [phone] DATE OF VISIT: 11/15/19 PATIENT NAME: Buck Bell : 1945; AGE: 74 y.o.; Sex:M PHONE NUMBER: ; (Work); ; PHYSICIAN: Salvador Jose MD PRIMARY CARE / REFERRING PHYSICIAN: No ref. provider found / HALI Thurman / [id number] / [place] [id number] / REASON FOR EVALUATION / CHIEF COMPLAINT: Follow up evaluation regarding bilateral carot id stenosis HISTORY OF PRESENT ILLNESS: Buck Bell is a 74 y.o. male patient who presents fo r follow up regarding his bilateral carotid stenosis. He is a patient at [facility] and was seen at the ED at [facility] for headache and neck pain complaint s in 04/2019. During this time, he had a CTA Head and Neck performed and results showed "old left MCA tract infarction and small left SURGICAL PROCESSOR infarction and old left lacunar infarct in the right caudate head with right ICA stenosis but 50% in the cavernous region and 85% proximal ICA and left ARRlnv34% stenosis." He then had follow up MRI brain on 05/22/2019 which gilda wed a large infarction involving the right temporal occipital and inferior parietal region , and left medial temporal occipital lobe. The patient was last seen by neurologist on 10/05 and was noted to have significant dementia and was not complaint with his medications. His d iagnosis and prognosis was reviewed with Veronica Jimenez, nurse practitioner and rn case management at [facility]. Given his recurrent dizziness and previous CTA fi ndings, patient was referred to vascular surgery for evaluation. During his virtual visit on 10/31, he denied any new symptoms. He was noted to have severe right carotid stenosis and pr eviously refused intervention but was agreeable to CTA imaging for this. Today, he presents to discuss results and possible intervention/treatment options. He reports he has been doing well, and denies any new stroke like symptoms. The patient continues to take his daily Plav ix medication. He is a previous smoker. He lives at home alone, but has home care nurse twic e a week. He ambulates with walker and has family check on him on regular basis. VITAL SIGNS: BP 151/70 | Pulse 55 | SpO2 99% . ROS: 12-point ROS negative, other per HPI IMAGING: CTA imaging was obtained on 10/17 but impression has not been uploaded in the patient's chart . Personally reviewed the images and discussed them with the patient. PHYSICAL EXAM: Constitutional: Well nourished, no signs of distress HENT: Normocephalic and atraumatic. Cranial nerves II-XI are grossly intact. Cardiovascular: regular Pulmonary/Chest: Unlabored at rest Abdominal: non-tender Musculoskeletal: Normal range of motion. Extremities: No edema Neurological: alert and oriented VASCULAR: palpable carotid bilaterally, right carotid bruit ASSESSMENT & PLAN: Mr. Bell is a 74 y.o. male with who presents for follow up regarding his bilateral car otid stenosis. Discussed CTA results from 10/17 with the patient, which indicates narrowing of the right carotid artery, "right ICA stenosis but 50% in the cavernous region and 85% proxi mal ICA". Surgical intervention is indicated, given his previous stroke. We discussed surgic al option and mechanism of right carotid endarterectomy vs TCAR with the patient. We have di scussed benefits and risks of this procedure, including bleeding, infection, stroke, and chris th. Patient is understanding, is agreeable to the right carotid endarterectomy, and has sign ed consent for surgery. Patient was instructed not to consume any foods or fluids after 11:5 9 PM on the date prior to surgery. All questions and concerns addressed. Patient understands and is agreeable. Dictation software, uBiome, used which may contain error for similar sounding words even af ter review. Personal communication requested for any clarification. Portions of this chart may have been copied from previous notes for continuity of care purp ose Attending Note: Documentation assistance provided by Daljit Abdi). Information re corded by the jaquelineibotilio has been reviewed and validated by me. I agree with its contents. Signed by: Randy Wolf 11/15/19, 11:11 AM PDT Salvador Jose MD Vascular Surgery documented in this enc ounter Miscellaneous Notes Plan of Care - Manisha Carrasco, PT - 12/03/2019 9:35 AM PDT Physical Therapy Re-Assessment Note Recommended discharge disposition: assisted facility Post discharge physical therapy recommendation: ongoing low intensity therapy Equipment Recommendations: (tbd) Barriers to community-based discharge Cognitive Impairment, Physical Impairment, Level of assistance for ADLs/mobility, Precautio ns, and Fall risk Recommended Frequency: 5 times/wk for 7 days with reassessment due by 12/09/19 Summary: Pt with increased confusion overnight. Now in 4pt restraints. Disoriented x4. Perseverates on "ships gonna blow" and "those two are going to , your next". 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 May benefit from MD f/u for possible head and neck imaging to r/o infarction or fx. Will continue to f karen for change in status and f/u MD POC. RN to f/u w/. Cognitive Assessment Cognitive Comments: disoriented x4, hx vascular dementia but apparently worse since yesterd ay, limited participation and illogical perseverative speech Goals Reflects last filed data and may be from multiple contributors. All Bed Mobility Goal Most Recent Value LTG Status new at 12/02/2019 1250 LTG [place] Level modified independent at 12/02/2019 1250 LTG Assistive Device none at 12/02/2019 1250 All Transfers Goal Most Recent Value LTG Status new at 12/02/2019 1250 LTG [place] Level modified independent at 12/02/2019 1250 LTG Assistive Device 2 wheeled walker (FWW) at 12/02/2019 1250 Gait Goal Most Recent Value LTG Status new at 12/02/2019 1250 LTG [place] Level modified independent at 12/02/2019 1250 LTG Assistive Device 2 wheeled walker (FWW) at 12/02/2019 1250 LTG Distance (feet) 800ft at 12/02/2019 1250 PT Time Calculation Individual Start Time: 0935 Individual Stop Time: 0945 Individual Total Time: 10 PT Total Treatment Time: 10 lan of Care - Flako Thibodeaux, TARIQ - 12/03/2019 2:58 AM PDT Problem: Restraint/Seclusion Use for Patient Safety Goal: Individualization/Patient-Specific Restraint Care Description: Individualization: Patient's unique needs, preferences, requests, personal go als, or care interventions/approaches. Outcome: Ongoing, not progressing Pt became very agitated and violent with sitter. Attempted to kick and punch nurse and sit ter, stating he could murder us with his bare hands. Attempts at de-escalation unsuccessful. Matthias anderson called. Per MD, pt placed in soft restraints to wrists and ankles. PRN Haldol x1 administered. Dr Jose alerted to changes in LOC and to nurse's concerns with swelling in R neck around incision and under/around neck. MD verbalized understanding. Pt continues to be agitated at times and verbally abusive to sitter. Restraint assessments performed per pro tocol. Will continue to monitor. lan of Care - Miley Boykin RN - 12/02/2019 6:30 PM PDT Problem: Adult Inpatient Plan of Care Goal: Plan of Care Review Outcome: Ongoing, progressing Problem: Skin Injury Risk Increased Goal: Skin Health and Integrity Outcome: Ongoing, progressing Problem: Confusion Acute Goal: Optimal Cognitive Function Outcome: Ongoing, progressing Pt able to tolerate chair for most of shift, shifting weight PRN. Pt mental status declin ed, see previous note for details. VSS otherwise throughout shift. Miley Boykin RN Ghazala ctronically signed by Miley Boykin RN at 12/02/2019 6:31 PM PDTPlan of Care - Dinorah Londono, PT - 12/02/2019 12:50 PM PDT Physical Therapy Initial Evaluation Note Recommended discharge disposition: assisted facility Post discharge physical therapy recommendation: will benefit from structured setting, mini mum 5 days of therapy/week Equipment Recommendations: none(he stated he has DM) Barriers to community-based discharge Cognitive Impairment, Physical Impairment, Level of assistance for ADLs/mobility, Lack of s ocial support, Precautions, Pain, and Fall risk Impairments Found (describe specific impairments): functional endurance/activity tolerance, gait, locomotion, and balance Planned Interventions: balance training, bed mobility training, gait training, home exercis e program, motor coordination training, neuromuscular re-education, patient/family education , postural re-education, stair training, strengthening, transfer training Recommended Frequency: 5 times/wk for 7 days with reassessment due by 12/09/19 Summary: Patient poor historian- had some type of surgery for neck- for his nerves/numbnes s and vascular- lives alone in [place], [place]- he stated no help available to assist him Prior Functional Level Comment: c/o being dizzy since his neck surgery- and numbness in B-h ands/feet Precautions Precaution Comment: c/o dizziness and xmppxzvr-W-yxeyb/feet and poor historian Precautions/Limitations: falls, hard of hearing, other (see comments)(looses balance backwa rds) Cognitive Assessment Cognitive Comments: not able to say month- year only hosp- not kadlec- unsure of answers gi vivian -flat affect Mood/Behavior: cooperative Bed Mobility Bed Mobility Comments: declined today- he was up in recliner did not want to do bed mobs b/ c of pain Transfers Additional Documentation: sit to/from stand Sit-Stand, Level of [place]: minimal assist (75% patient effort), verbal cues required Stand-Sit, Level of [place]: verbal cues required, minimal assist (75% patient effort) [id number]-Akm, Assistive Device: gait belt, 2 wheeled walker (FWW) Safety Issues: weight-shifting ability decreased Gait Level of [place]: moderate assist (50% patient effort), verbal cues required Assistive Device: gait belt, 2 wheeled walker (FWW) Distance (feet): 8 steps Additional Documentation: impairments Impairments: impaired balance, other (see comments)(difficulty picking up either foot R>L) Range of Motion ROM Comments: limited at almost all joints- especially in extension of spine Strength Strength Comments: no MMT-able to do activities requested Exercises Additional Documentation: bed exercises Bed exercises: bilateral, ankle pumps, quad sets, glut sets, heel slides Repetitions: 2-3 Goals Reflects last filed data and may be from multiple contributors. All Bed Mobility Goal Most Recent Value LTG Status new at 12/02/2019 1250 LTG [place] Level modified independent at 12/02/2019 1250 LTG Assistive Device none at 12/02/2019 1250 All Transfers Goal Most Recent Value LTG Status new at 12/02/2019 1250 LTG [place] Level modified independent at 12/02/2019 1250 LTG Assistive Device 2 wheeled walker (FWW) at 12/02/2019 1250 Gait Goal Most Recent Value LTG Status new at 12/02/2019 1250 LTG [place] Level modified independent at 12/02/2019 1250 LTG Assistive Device 2 wheeled walker (FWW) at 12/02/2019 1250 LTG Distance (feet) 800ft at 12/02/2019 1250 lan of Care - Belkys Washington RN - 12/02/2019 10:43 AM PDTCare Management Initial Assessment Readmission Risk: Medium Pt admitted with carotid stenosis. He lives at home alone and is independent with his ADLs . Physical therapy to work with pt for recommendations. Pt has had a recent fall. Status Prior to Admission or Illness Arrival From: admitted as an inpatient, home or self-care Lives With: alone Living Arrangements: house Caregiver For: no one Functional Status: independent. Transportation Available: family or friend will provide Care Management Concerns Readmission Within Last 30 Days: no previous admission in last 30 days PCP: HALI Thurman Contact Information Family Contact Information: Name: Breanne . dc Needs Assessment Current Outpt/Agency/Support Groups: none Services Anticipated at Discharge: other (see comments)(TBD.) Equipment Used at Home: none Initial Plan Anticipated Discharge Disposition: other (see comments)(TBD.) Electronically signed: Belkys Lopez RN 12/02/2019 10:45 AM PDT lan of Care - Malu Beck RN - 12/01/2019 11:06 PM PDT Problem: Fall Injury Risk Goal: Absence of Fall and Fall-Related Injury Outcome: Ongoing, progressing Bed alarm and hourly rounding in place.Electronically signed by Malu Reynoso RN at 11/14 11:06 PM PDTOp Note - Salvador Jose MD - 12/01/2019 4:26 PM PDT [facility] OPERATIVE REPORT PATIENT NAME: Buck Bell AGE: 74 y.o. TODAY'S DATE: 12/01/2019 Surgeon: Surgeon(s): Salvador Jose MD Surgical Assists: Tomasa Jose PA-C (AMOR was required to help with positioning, prepping and draping, exposure and closure). Anesthesiologist: No responsible provider has been recorded for the case. Anesthesia: General Pre-op Diagnosis: Systematic right carotid stenosis Post-op Diagnosis: Same Procedures: Right carotid endarterectomy with bovine pericardial patch Indications: See history and physical Findings: Severe stenosis right carotid bulb and proximal internal carotid. Patient had a large ulcerated plaque Estimated Blood Loss: 200 mL Transfused: No Complications: none Technique/Procedure Description: The patient was properly identified and brought to the ope rating room. The patient was placed supine on the operating table and general endotracheal anesthesia was induced. The patient's right neck and chest were then prepped and draped in t he usual sterile fashion. A longitudinal incision was then made in the in the right neck ant erior to the sternocleidomastoid muscle. This was deepened with electrocautery through the p latysma. The internal jugular vein was then also dissected. The facial vein was identified a nd ligated with 2-0 silk sutures and divided. The sternocleidomastoid muscle and the interna l jugular vein were then retracted posteriorly. The common carotid artery was identified. Th e vagus nerve was seen and protected from harm during dissection. At first the common caroti d and internal carotid arteries were dissected. The hypoglossal nerve was also identified an d protected from harm during dissection. The patient was then given 8000 units of heparin a fter 3 minutes the first internal carotid artery was clamped, next the common carotid artery and then the external carotid artery. An arteriotomy was then made using an 11 blade, and e xtended into the internal carotid artery using Gutierrez scissors. The endarterectomy was then p erformed. The ICA plaque was removed and the internal carotid artery intima was tacked with 7-0 prolene suture. The plaque was removed from the external carotid artery using an erma ion technique. The plaque was then divided sharply with Gutierrez scissors from the common carot id artery. The plaque was then sent off the table as a specimen. The arteriotomy was then ne xt closed using a bovine 0.8 x 8 cm bovine pericardial patch with 6-0 Prolene in a running f ashion to close the internal carotid artery and 5-0 Prolene to close the common carotid edmund ry in a running fashion. Prior to completion of the anastomosis, the artery was then back bl ed and flushed with heparinized saline and the anastomosis was then completed. First the ext ernal carotid and common carotid artery clamps were then removed after this was allowed to f low for a few seconds The internal carotid artery clamp was removed last and flow was reesta blished to the ICA. A Doppler was then used to verify good flow within the common, external, and internal carotid arteries. Hemostasis was assured and a 7 mm flat LEXA was then brought o ut through a separate stab incision. The platysma was then closed with 3-0 Vicryl sutures in a running fashion. The skin was then closed with 4-0 Monocryl in a subcuticular fashion. De rmabond was then applied to the skin. The drain was then secured in place using a 3-0 nylon suture. At the end of the case sponge, needle, and instrument counts were correct x2. The p atient was awakened and extubated in the operating room. The patient was neurologically int act. The patient was then taken to the recovery area in stable condition. Salvador Jose MD Vascular Surgery Electronically signed by: Salvador Jose MD, 12/01/2019 4:26 PM PDT [facility] documented in this enc ounter Plan of Treatment +--------+ + + + + | Date | Type | Specialty | Care Team | Description | +--------+ + + + + | 12/26/ | Appointment | Radiology | | | | 2019 | | | | | +--------+ + + + + | 12/26/ | Office | Vascular Surgery | Salvador Jose MD | | 2019 | Visit | | [address] | | | | | | [address] | | | | | | [place] [address] | | | | | | [phone] | | | | | | | | +--------+ + + + + | 03/13/ | Office | Neurology | Veronica, | | | 2019 | Visit | | HALI [address] | | | | | | [address] [facility], | | | | | | [place] [address] | | | | | | [phone] | | | | | | | [...] + + documented in this encounter Results LABS - EXTERNAL SCAN (12/04/2019 12:00 AM PDT) + + + | Narrative | Performed At | + + + | Ordered by an | | | unspecified provider. | | + + + Basic Metabolic Panel (12/03/2019 6:18 AM PDT) + + + + + + [...] | 8.6 | 8.5 - 10.5 | [facility] | | | | | mg/dL | LABORATORY | | + + + + + + | Estimated | >60Comment: GFR <60: | >60 | [facility] | | | GFR | CHRONIC KIDNEY [...] | | | | | | MDRD IDHI traceable | | | | | | equation.Testing | | | | | | performed at [facility], [address] | | | | | | [facility], | | | | | | [place] [address] | | | | + + + + + + + + | Specimen | + + | Blood | + + + + + + + | Performing | Address | City/State/Zipcode | Phone Number | | Organization | | | | + + + + + | [facility] | [address] | [place] [address] | [phone] | + + + + + CBC no Differential (12/03/2019 6:18 AM PDT) + + + + + + [...] LABORATORY | | | | performed at [facility], [address], | | | | | | [place] [address] | | | | + + + + + + + + | Specimen | + + | Blood | + + + + + + + | Performing | Address | City/State/Zipcode | Phone Number | | Organization | | | | + + + + + | [facility] | [address] | [place] [address] | [phone] | + + + + + Basic Metabolic Panel (12/02/2019 5:28 AM PDT) + + + + + + | Component | Value | Ref Range | Performed | Pathologist | | | | | At | Signature | + + + + + + | Na | 140 | 135 - 145 | [facility] | | | | | mmol/L | LABORATORY | | + + + + + + | K | 4.4 | 3.5 - 4.9 | [facility] | | | | | mmol/L | LABORATORY | | + + + + + + | Cl | 108 | 99 - 109 mmol/L | [facility] | | | | | | LABORATORY | | + + + + + + | CO2 | 25 | 23 - 32 mmol/L | [facility] | | | | | | LABORATORY | | + + + + + + | Anion Gap | 11 | 5 - 20 mmol/L | [facility] | | | | | | LABORATORY | | + + + + + + | Glucose | 115 (H) | 65 - 99 mg/dL | [facility] | | | | | | LABORATORY | | + + + + + + | BUN | 22 | 8 - 25 mg/dL | [facility] | | | | | | LABORATORY | | + + + + + + | Creatinine | 0.90 | 0.70 - 1.30 | [facility] | | | | | mg/dL | LABORATORY | | + + + + + + | BUN/Creatin | 24 | | [facility] | | | ine Ratio | | | LABORATORY | | + + + + + + | Calcium | 8.4 (L) | 8.5 - 10.5 | [facility] | | | | | mg/dL | LABORATORY | | + + + + + + | Estimated | >60Comment: GFR <60: | >60 | [facility] | | | GFR | CHRONIC KIDNEY [...] | | | | | performed at [facility], [address] | | | | | | [facility], | | | | | | [place] [address] | | | | + + + + + + + + | Specimen | + + | Blood | + + + + + + + | Performing | Address | City/State/Zipcode | Phone Number | | Organization | | | | + + + + + | [facility] | [address] | [place] [address] | [phone] | + + + + + CBC with Differential (12/02/2019 5:28 AM PDT) + + + + + + [...] | | | Absolute | performed at [facility], [address] | K/uL | LABORATORY | | | | [facility], | | | | | | [place] [address] | | | | + + + + + + + + | Specimen | + + | Blood | + + + + + + + | Performing | Address | City/State/Zipcode | Phone Number | | Organization | | | | + + + + + | [facility] | [address] | [place] [address] | [phone] | + + + + + Hemoglobin [...] Testing | 39.0 - 50.0 % | [facility] | | | | performed at [facility];[address] | | LABORATORY | | | | [address];[place], [place] | | | | | | [address] | | | | + + + + + + + + | Specimen | + + | Blood | + + + + + + + | Performing | Address | City/State/Zipcode | Phone Number | | Organization | | | | + + + + + | [facility] | [address] | [place] [address] | [phone] | + + + + + Surgical [...] plaque | | | with extensive calcification. JVR:[facility]:C2NR MICROSCOPIC | | | EXAMINATION:Histologic sections of [...] | | | component was performed by [facility], [address] [place] [address], | | | [place] [address] (Cnc Mechanic: Shannan Archer MD; CLIA# | | | [id number]). Professional interpretation was performed by[employer] | | | [employer], [facility], [facility] | | | [address] [place] [address] (Cnc Mechanic: Issa | | | Kam Palacio). Diagnostician: Issa Palacio | | | MDPathologistElectronically Signed 12/05/2019 | | |The technical component was performed by [facility], [address] [place] [address] (Cnc Mechanic: Shannan Archer MD; [facility]# [id number]). Professional interpretation w as performed by | | |[facility], [facility], [address] [place] [address] [address] [place] [address] (Cnc Mechanic: Issa Palacio M.D.). | | | | [...] | | | + +---------+ + + Type and Screen (12/01/2019 9:50 AM PDT) + + + + + + [...] + + + | [facility] | [id number] | | [facility] | | | | | | LABORATORY | | + + + + + + | [facility] | Testing performed at | | [facility] | | | | [facility];[address] | | LABORATORY | | | | [address];[place] [address] | | | | + + + + + + + + | Specimen | + + | Blood | + + + + + + + | Performing | Address | City/State/Zipcode | Phone Number | | Organization | | | | + + + + + | [facility] | [address] | [place] [address] | [phone] | + + + + + CBC with Differential (12/01/2019 9:49 AM PDT) + + + + + + | Component | Value | Ref Range | Performed | Pathologist | | | | | At | Signature | + + + + + + | WBC | 9.43 | 3.80 - 11.00 | [facility] | | | | | K/uL | LABORATORY | | + + + + + + | Red Blood | 4.59 | 4.20 - 5.70 | [facility] | | | Cells | | M/uL | LABORATORY | | + + + + + + | Hemoglobin | 13.3 | 13.2 - 17.0 | [facility] | | | | | g/dL | LABORATORY | | + + + + + + | Hematocrit | 42.2 | 39.0 - 50.0 % | [facility] | | | | | | LABORATORY | | + + + + + + | MCV | 91.9 | 80.0 - 100.0 fl | [facility] | | | | | | LABORATORY | | + + + + + + | MCH | 29.0 | 27.0 - 34.0 pg | [facility] | | | | | | LABORATORY | | + + + + + + | MCHC | 31.5 (L) | 32.0 - 35.5 | [facility] | | | | | g/dL | LABORATORY | | + + + + + + | RDW-SD | 48.6 | 37 - 53 fl | [facility] | | | | | | LABORATORY | | + + + + + + | Platelet | 227 | 150 - 400 K/uL | [facility] | | | Count | | | LABORATORY | | + + + + + + | MPV | 9.6Comment: NO NORMAL | fl | [facility] | [...] + + + + | % | 79.20 | % | [facility] | | | Neutrophils | | | LABORATORY | | + + + + + + | IMMATURE | 0.20 | % | [facility] | | | GRANULOCYTE | | | LABORATORY | | + + + + + + | % | 6.60 | % | [facility] | | | Lymphocytes | | | LABORATORY | | + + + + + + | Monocyte % | 6.40 | % | [facility] | | | | | | LABORATORY | | + + + + + + | Eosinophils | 7.40 | % | [facility] | | | % | | | LABORATORY | | + + + + + + | Basophils % | 0.20 | % | [facility] | | | | | | LABORATORY | | + + + + + + | Neutrophils | 7.47 (H) | 1.90 - 7.40 | [facility] | | | , Absolute | | K/uL | LABORATORY | | + + + + + + | IMMATURE | 0.02Comment: NOTE NEW | 0.00 - 0.07 | [facility] | | | GRANS AB | REFERENCE RANGE | K/uL | LABORATORY | | + + + + + + | Absolute | 0.62 (L) | 1.00 - 3.90 | [facility] | | | Lymphocytes | | K/uL | LABORATORY | | + + + + + + | Absolute | 0.60 | 0.00 - 0.80 | [facility] | | | Monocytes | | K/uL | LABORATORY | | + + + + + + | Eosinophils | 0.70 (H) | 0.00 - 0.50 | [facility] | | | , Absolute | | K/uL | LABORATORY | | + + + + + + | Basophils, | 0.02Comment: Testing | 0.00 - 0.10 | [facility] | | | Absolute | performed at [facility];[address] | [address] | LABORATORY | | | | [facility];[place], [place] | | | | | | [address] | | | | + + + + + + + + | Specimen | + + | Blood | + + + + + + + | Performing | Address | City/State/Zipcode | Phone Number | | Organization | | | | + + + + + | [facility] | [address] | [place] [address] | [phone] | + + + + + Basic Metabolic Panel (12/01/2019 9:49 AM PDT) + + + + + + | Component | Value | Ref Range | Performed | Pathologist | | | | | At | Signature | + + + + + + | Na | 139 | 135 - 145 | [facility] | | | | | mmol/L | LABORATORY | | + + + + + + | K | 4.1 | 3.5 - 4.9 | [facility] | | | | | mmol/L | LABORATORY | | + + + + + + | Cl | 103 | 99 - 109 mmol/L | [facility] | | | | | | LABORATORY | | + + + + + + | CO2 | 28 | 23 - 32 mmol/L | [facility] | | | | | | LABORATORY | | + + + + + + | Anion Gap | 12 | 5 - 20 mmol/L | [facility] | | | | | | LABORATORY | | + + + + + + | Glucose | 94 | 65 - 99 mg/dL | [facility] | | | | | | LABORATORY | | + + + + + + | BUN | 16 | 8 - 25 mg/dL | [facility] | | | | | | LABORATORY | | + + + + + + | Creatinine | 0.80 | 0.70 - 1.30 | [facility] | | | | | mg/dL | LABORATORY | | + + + + + + | BUN/Creatin | 20 | | [facility] | | | ine Ratio | | | LABORATORY | | + + + + + + | Calcium | 9.6 | 8.5 - 10.5 | [facility] | | | | | mg/dL | LABORATORY | | + + + + + + | Estimated | >60Comment: GFR <60: | >60 | [facility] | | | GFR | CHRONIC KIDNEY [...] | | | | | | MDRD IDHI traceable | | | | | | equation.Testing | | | | | | performed at [facility];[address] | | | | | | [facility];[place], [place] | | | | | | [address] | | | | + + + + + + + + | Specimen | + + | Blood | + + + + + + + | Performing | Address | City/State/Zipcode | Phone Number | | Organization | | | | + + + + + | [facility] | [address] | [place] [address] | [phone] | + + + + + documented in this encounter Visit Diagnoses + + | Diagnosis | + + | Carotid stenosis, right - Primary Occlusion and stenosis of carotid artery without | | mention of cerebral infarction | + + documented in this encounter Admitting Diagnoses + + | Diagnosis | + + | Carotid stenosis, right Occlusion and stenosis of carotid artery without mention of | | cerebral infarction | + + documented in this encounter Administered Medications + +--------+ +--------+------+------+ | Medication Order | MAR | Action | Dose | Rate | Site | | | Action | Date | | | | + +--------+ +--------+------+------+ | acetaminophen (TYLENOL) tablet | Given | 12/02/19 | 650 mg | | | | 650 mg 650 mg, Oral, EVERY 6 | | 20 9:50 | | | | | HOURS PRN, Mild Pain, Fever, | | PM PDT | | | | | Starting 12/01/19 at 1757 | | | | | | + +--------+ +--------+------+------+ +-------+ +--------+---+---+ | Given | 12/02/19 | 650 mg | | | | | 20 8:36 | | | | | | AM PDT | | | | +-------+ +--------+---+---+ +---+---+ | | | +---+---+ + +-------+ +-------+---+---+ | aspirin chewable tablet 81 mg | Given | 12/02/19 | 81 mg | | | | 81 mg, Oral, DAILY, First dose on | | 20 8:36 | | | | | 12/02/19 at 0900 | | AM PDT | | | | + +-------+ +-------+---+---+ +---+---+ | | | +---+---+ + +-------+ +-------+---+---+ | atorvaSTATin (LIPITOR) tablet | Given | 12/02/19 | 80 mg | | | | 80 mg 80 mg, Oral, NIGHTLY, | | 20 9:49 | | | | | First dose on Wed12/01/19 at 2100 | | PM PDT | | | | + +-------+ +-------+---+---+ +-------+ +-------+---+---+ | Given | 12/01/19 | 80 mg | | | | | 20 7:50 | | | | | | PM PDT | | | | +-------+ +-------+---+---+ +---+---+ | | | +---+---+ + +-------+ +-------+---+---+ | clopidogrel (PLAVIX) tablet 75 | Given | 12/02/19 | 75 mg | | | | mg 75 mg, Oral, DAILY, First | | 20 8:37 | | | | | dose on 12/02/19 at 0800 | | AM PDT | | | | + +-------+ +-------+---+---+ +---+---+ | | | +---+---+ + +-------+ +------+---+---+ | finasteride (PROSCAR) tablet 5 | Given | 12/02/19 | 5 mg | | | | mg 5 mg, Oral, DAILY, First dose | | 20 9:49 | | | | | on 12/02/19 at 1830, | | PM PDT | | | | | Reproductive Risk: Use | | | | | | | appropriate handling | | | | | | | precautions., | | | | | | + +-------+ +------+---+---+ +---+---+ | | | +---+---+ + +-------+ +------+---+ + | haloperidol lactate (HALDOL) | Given | 12/02/19 | 2 mg | | Deltoid- | | injection 2 mg 2 mg, | | 20 11:45 | | | Right | | Intramuscular, EVERY 6 HOURS PRN, | | PM PDT | | | | | Agitation, Starting 12/02/19 | | | | | | | at 2329 | | | | | | + +-------+ +------+---+ + +---+---+ | | | +---+---+ + +-------+ +--------+---+---+ | HYDROmorphone (DILAUDID) | Given | 12/01/19 | 0.2 mg | | | | injection 0.2-0.4 mg 0.2-0.4 mg, | | 20 11:53 | | | | | Intravenous, EVERY 2 HOURS PRN, | | PM PDT | | | | | Pain, Starting 12/01/19 at | | | | | | | 2321 | | | | | | + +-------+ +--------+---+---+ +---+---+ | | | +---+---+ + +-------+ +------+---+---+ | melatonin tablet 3-6 mg 3-6 | Given | 12/02/19 | 3 mg | | | | mg, Oral, NIGHTLY PRN, Insomnia, | | 20 9:50 | | | | | Starting 12/02/19 at 1806 | | PM PDT | | | | + +-------+ +------+---+---+ +---+---+ | | | +---+---+ + +-------+ +------+---+---+ | ondansetron (ZOFRAN) injection | Given | 12/01/19 | 4 mg | | | | 4 mg 4 mg, Intravenous, ONCE | | 20 4:35 | | | | | PRN, Nausea, Vomiting, Starting | | PM PDT | | | | | 12/01/19 at 1547, For 1 dose, | | | | | | | Recovery/Phase I | | | | | | + +-------+ +------+---+---+ +---+---+ | | | +---+---+ + +-------+ +------+---+---+ | oxyCODONE (ROXICODONE) tablet | Given | 12/01/19 | 5 mg | | | | 5-10 mg 5-10 mg, Oral, EVERY 4 | | 20 8:32 | | | | | HOURS PRN, Pain, Starting Fri | | PM PDT | | | | | 12/01/19 at 1757 | | | | | | + +-------+ +------+---+---+ +-------+ +------+---+---+ | Given | 12/01/19 | 5 mg | | | | | 20 7:07 | | | | | | PM PDT | | | | +-------+ +------+---+---+ +---+---+ | | | +---+---+ + + + +---------+ +---+ | phenylephrine (GINA-SYNEPHRINE, | Rate/Dos | 12/02/19 | 20 | 12 mL/hr | | | VAZCULEP) 100 mcg/mL in sodium | e Change | 20 2:41 | mcg/min | | | | chloride 0.9% 500 mL infusion | | AM PDT | | | | | 0-60 mcg/min (0-36 mL/hr), at | | | | | | | 0-36 mL/hr, Intravenous, | | | | | | | TITRATED, Starting 12/01/19 at | | | | | | | 1815, Notify ordering provider | | | | | | | max dose achieved for 5 minutes, | | | | | | | goal not achieved at max dose, or | | | | | | | HR < 60 bpm, Titration | | | | | | | Instruction: See below, Goal: SBP | | | | | | | greater than 90, Initial dose: | | | | | | | 30 mcg/min, Increase rate by: 10 | | | | | | | mcg/min every 5 minutes., | | | | | | | Decrease rate by: 10 mcg/min | | | | | | | every 5 minutes., *: Titrate drug | | | | | | | per order as tolerated. | | | | | | | Titration may vary based on the | | | | | | | patient | | | | | | | | | | | | | | s critical condition. | | | | | | + + + +---------+ +---+ + + +---------+ +---+ | Rate/Dose Verify | 12/01/19 | 30 | 18 mL/hr | | | | 20 7:00 | mcg/min | | | | | PM PDT | | | | + + +---------+ +---+ | Restarted | 12/01/19 | 30 | 18 mL/hr | | | | 20 6:14 | mcg/min | | | | | PM PDT | | | | + + +---------+ +---+ +---+---+ | | | +---+---+ + + + +---------+---------+---+ | phenylephrine (GINA-SYNEPHRINE, | Rate/Dos | 12/01/19 | 10 | 6 mL/hr | | | VAZCULEP) 100 mcg/mL in sodium | e Change | 20 4:52 | mcg/min | | | | chloride 0.9% 500 mL infusion | | PM PDT | | | | | 0-360 mcg/min (0-216 mL/hr), at | | | | | | | 0-216 mL/hr, Intravenous, | | | | | | | TITRATED, Starting 12/01/19 at | | | | | | | 1645, Titration Instruction: See | | | | | | | below, Goal: SBP greater than | | | | | | | 90, Initial dose: 30 mcg/min, | | | | | | | Increase rate by: 20 mcg/min | | | | | | | every 5 minutes., Decrease rate | | | | | | | by: 20 mcg/min every 5 minutes., | | | | | | | *: Titrate drug per order as | | | | | | | tolerated. Titration may vary | | | | | | | based on the patient | | | | | | | | | | | | | | s critical condition. | | | | | | + + + +---------+---------+---+ +---------+ +---------+ +---+ | New Bag | 12/01/19 | 30 | 18 mL/hr | | | | 20 4:45 | mcg/min | | | | | PM PDT | | | | +---------+ +---------+ +---+ +---+---+ | | | +---+---+ + +-------+ +------+---+---+ | polyethylene glycol (MIRALAX) | Given | 12/02/19 | 17 g | | | | powder 17 g 17 g, Oral, DAILY, | | 20 8:37 | | | | | First dose on Wed12/01/19 at | | AM PDT | | | | | 1830, Mix with 8 oz. water., | | | | | | + +-------+ +------+---+---+ +---+---+ | | | +---+---+ + +---------+ +--------+ +---+ | sodium chloride 0.9% (NS) | New Bag | 12/03/19 | 1,000 | 75 mL/hr | | | infusion at 75 mL/hr, | | 20 12:13 | mLs | | | | Intravenous, CONTINUOUS, Starting | | AM PDT | | | | | 12/02/19 at 1545 | | | | | | + +---------+ +--------+ +---+ +---------+ +--------+ +---+ | New Bag | 12/02/19 | 75 mLs | 75 mL/hr | | | | 20 4:53 | | | | | | PM PDT | | | | +---------+ +--------+ +---+ +---+---+ | | | +---+---+ documented in this encounter
--- OUTSIDE RECORDS SUMMARY | ~2019-12-22 | XMS | Encounter Summary ---
Demographics + + + | Address | [address] | | | [place] [address] | + + + | Home Phone | | + + + | Preferred Language | Unknown | + + + | Marital Status | Single | + + + | Roman Catholic Affiliation | 1041 | + + + | Race | Unknown | + + + | Ethnic Group | Unknown | + + + Author + + + | Author | [facility] | | | and [place] | + + + | Organization | [facility] | | | and [...] Team Providers + +------+ + | Care Milk Inspector Name | Role | Phone | + +------+ + | Dominic Carlin MD | PCP | | + +------+ + Reason for Visit + +--------+ + | Reason | Onset | Comments | | | Date | | + +--------+ + | Spells | 09/24/ | | | | 2014 | | + +--------+ + | Back Pain | 09/24/ | | | | 2014 | | + +--------+ + Encounter Details +--------+ + + + + | Date | Type | Department | Care Team | Description | +--------+ + + + + | 09/24/ | Telephone | [facility] | Wes Melvin MD | Vinicius; Back Pain | | 2015 | | NEUROSURGERY [address] | [address] | | | | | [address] | [place] [address] | | | | | [place] | [phone] | | | | | [address] | | | | | | [phone] | | | +--------+ + + + [...] this encounter Miscellaneous Notes Telephone Encounter - Carlita Pate Master of [place] - 09/26/2014 8:19 AM PDTCall re turned. Left message for patient stating "He could do self directed PT at home", Per Dr. Nemo juan's instructions. elephone Encounter - Carlita Pate Master of [place] - 09/25/2014 8:27 A M PDTCall returned. Left voicemail to return call. elephone Encounter - Wes Melvin MD - 09/24 5:43 PM PDTHe can do self directed PT at home. Wes Melvin elephone Encounter - Edna Francis - 09/24/2014 10:58 AM PDTS/P C3-C7 ACDF 07/26/14 Buck calls to let Dr. Melvin know that he does not want to proceed with physical therapy. He had 1 initial consult with physical therapy at [facility] and felt that this sessio n caused him to have a lot of back, and left leg pain. He does not want to proceed with any more physical therapy sessions. "I am not in the mood, I am grouchy all the time". Also, n otes that he has had dizzy spells for years and this makes him really not want to attend phy sical therapy, or "be around people". He is currently being treated for dizzy spells by his PCP. Please advise further. documented in this encounter Plan of Treatment [...] | 2019 | Visit | | [address] | | | | | | [address] | | | | | | [facility] [place] [place] [place] [address] | | | | | | [phone] | | | | | | | | +--------+ + + + + | 03/13/ | Office | Neurology | Veronica, | | | 2019 | Visit | | [address] | | | | | | [address] [place], | | | | | | [place] [address] | | | | | | [phone] | | | | | | | | +--------+ + + + + documented as of this encounter Visit Diagnoses Not on filedocumented in this encounter
--- OUTSIDE RECORDS SUMMARY | ~2019-12-22 | XMS | Encounter Summary ---
Demographics + + + | Address | [address] | | | [place] [address] | + + + | Home Phone | | + + + | Preferred Language | Unknown | + + + | Marital Status | Single | + + + | Holiness Affiliation | 1041 | + + + | Race | Unknown | + + + | Ethnic Group | Unknown | + + + Author + + + | Author | [facility] | | | and [place] | + + + | Organization | [facility] | [...] Team Providers + +------+ + | Care Housing Inspector Name | Role | Phone | [...] pain | HALI Grimes | [address] | | | | | Other | [address] | [place], | | | | | secondary | [address] | [place] | | | | | kyphosis, | [place], | [address] | | | | | cervical | [place] [address] | Phone: | | | | | region | Phone: | [phone] | | | | | Cervical | [phone] | Fax: | | | | | spinal | Fax: | [phone] | | | | | stenosis | [phone] | | | | | | Procedures [...] Closed | | Radiology | Diagnoses | [place], | [facility] | | | | | Neck pain | HALI Grimes | [address] | | | | | Other | [address] | [place], | | | | | secondary | [address] | [place] | | | | | kyphosis, | [place], | [address] | | | | | cervical | [place] [address] | Phone: | | | | | region | Phone: | [phone] | | | | | Cervical | [phone] | Fax: | | | | | spinal | Fax: | [phone] | | | | | stenosis | [phone] | | | | | | Procedures [...] + + | 05/22/ | Hospital | [facility] | Sydney Lennon, | Neck pain; Other | | 2020 | Encounter | [facility] MRI [address] | 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
--- OUTSIDE RECORDS SUMMARY | ~2019-12-22 | XMS | Encounter Summary ---
Demographics + + + | Address | [address] | | | [place] [address] | + + + | Home Phone | | + + + | Preferred Language | Unknown | + + + | Marital Status | Single | + + + | Hoahaoism Affiliation | 1041 | + + + | Race | Unknown | + + + | Ethnic Group | Unknown | + + + Author + + + | Author | [facility] | | | and [place] | + + + | Organization | [facility] | | | [...] Team Providers + +------+ + | Care Shirt Closer Name | Role | Phone | + +------+ + | Sydney Lennon | PCP | | + +------+ + Encounter Details +--------+ + + + + | Date | Type | Department | Care Team | Description | +--------+ + + + + | 11/19/ | Orders Only | [facility] | María Elena Chairez DNP | COVID-19 ruled out | | 2020 | | VASCULAR SURGERY | [address] | (Primary Dx) | | | | [address] | [address] [facility] [place] | | | | | [place] | [address] | | | | | [address] | | | | | | [phone] | | | +--------+ + + + [...] | | | | | [address] [facility] | | | | | | [place] [address] | | | | | | [phone] | | | | | | | | +--------+ + + + + | 03/13/ | Office | Neurology | Veronica, | | | 2019 | Visit | | [address] | | | | | | [address] [facility] | | | | | | [place] [address] | | | | | | [phone] | | | | | | | | +--------+ + + + + + + +--------+ + + | Name | Type | Priori | Associated Diagnoses | Order Schedule | | | | ty | | | + + +--------+ + + | Coronavirus | Microbiolog | Routin | Covid-19 Ruled Out | Expected: 11/20/2019 | | (COVID-19) NAAT | y | e | | (Approximate), | | | | | | Expires: 11/19/2020 | + + +--------+ + + documented as of this encounter Visit Diagnoses + + | Diagnosis | + + | COVID-19 ruled out - Primary | + + documented in this encounter"
--- OUTSIDE RECORDS SUMMARY | ~2019-12-22 | XMS | Encounter Summary ---
Demographics + + + | Address | [address] | | | [place] [address] | + + + | Home Phone | | + + + | Preferred Language | Unknown | + + + | Marital Status | Single | + + + | Jainism Affiliation | 1041 | + + + | Race | Unknown | + + + | Ethnic Group | Unknown | + + + Author + + + | Author | [facility] | | | and [place] | + + + | Organization | [facility] | | | [...] Team Providers + +------+ + | Care Form Tamper Name | Role | Phone | + +------+ + PCP | Unavailable | + +------+ + Encounter Details +--------+ + + + + | Date | Type | Department | Care Team | Description | +--------+ + + + + | 08/15/ | Hospital | [facility] | Helio Fountain | | | 2004 | Encounter | CONVERSION [address] | [address] | | | | | [address] | | | | | | [place] | | | | | | [address] | | | | | | [phone] | | | +--------+ + + + [...] | | | [address] [facility] | | | | | | [place] [address] | | | | | | [phone] | | | | | | | | +--------+ + + + + | 03/13/ | Office | Neurology | Veronica, | | | 2019 | Visit | | [address] | | | | | [address] [place], | | | | | | [place] [address] | | | | | | [phone] | | | | | | | | +--------+ + + + + documented as of this encounter Visit Diagnoses Not on filedocumented in this encounter"
--- OUTSIDE RECORDS SUMMARY | ~2019-12-22 | XMS | Encounter Summary ---
Demographics + + + | Address | [address] | | | [place] [address] | + + + | Home Phone | | + + + | Preferred Language | Unknown | + + + | Marital Status | Single | + + + | Anabaptism Affiliation | 1041 | + + + | Race | Unknown | + + + | Ethnic Group | Unknown | + + + Author + + + | Author | [facility] | | | and [place] | + + + | Organization | [facility] | | [...] Team Providers + +------+ + | Care Assistant Nurse Manager Name | Role | Phone | [...] [address] | | | | | [place], [place] | [place] | | | | | [address] | [address] | | | | | [phone] | [phone] | | | | | | | [...] [place] | | | | | | [place] [address] | | | | | | [phone] | | | | | | | | +--------+ + + + + | 03/13/ | Office | Neurology | Veronica, | | | 2019 | Visit | | [address] | | | | | | [address] [place], | | | | | | [place] [address] | | | | | | [phone] | | | | | | | [...] | | | Grade 1 diastolic abnormality, [place] visually estimates LVEF 65-70%. | | | [...] Grade 1 | | | diastolic abnormality, [place] visually estimates LVEF 65-70%. Mild | | [...] pressures of 0-5mmHg. MEASUREMENTS | | | Truck Mechanic: DEMARCO Authenticated by: Allen Grant | | | DO Report Date/Time: -- [id number] | | + + + + + | Procedure Note | + + | [place], Rad Conversion - 01/05/2019 8:26 PM PDT Patient Name: Yonny Bell of | | : 1945 Performing Physician: Allen Grant | | DO INDICATIONS c | | va CONCLUSIONS 1. See Dictation. 2. Mild concentric LVH, systolic function | | NML, Grade 1 diastolic abnormality, [place] visually estimates LVEF 65-70%. Mild LAE. | [...] venous pressures of 0-5mmHg. | | MEASUREMENTS Truck Mechanic: HERLINDAuthenticated by: Allen Morris | | Date/Time: -- [id number] IMPRESSION: 1. See Dictation. 2. Mild concentric | | LVH, systolic function NML, Grade 1 diastolic abnormality, [place] visually estimates | | LVEF 65-70%. Mild [...] | |MEASUREMENTS | | | | | |Truck Mechanic: | |Authenticated by: Allen Grant DO | |Report Date/Time: -- [id number] | | | |IMPRESSION: | |1. See Dictation. 2. Mild concentric LVH, systolic function NML, Grade 1 diastolic abnorma lity, [place] visually estimates LVEF 65-70%. Mild LAE. RA [...]
--- OUTSIDE RECORDS SUMMARY | ~2019-12-22 | XMS | Encounter Summary ---
Demographics + + + | Address | [address] | | | [place] [address] | + + + | Home Phone | | + + + | Preferred Language | Unknown | + + + | Marital Status | Single | + + + | Christian Affiliation | 1041 | + + + | Race | Unknown | + + + | Ethnic Group | Unknown | + + + Author + + + | Author | [facility] | | | and [place] | + + + | Organization | [facility] | | | [...] Team Providers + +------+ + | Care Reel Winder Name | Role | Phone | + [...] Closed | | Radiology | Diagnoses | Damon, | | | | | | Carotid | Tomasa N, | | | | | | stenosis, | PA[address]C [address] | | | | | | right | [address] | | | | | | Procedures | [address] | | | | | | VAS Carotid | FLOOR | | | | | | Duplex | [place] | | | | | | Bilateral | [address] | | | | | | | Phone: | | | | | | | [phone] | | | | | | | Fax: | | | | | | | [phone] | | +--------+--------+ + + + + Reason for Visit Diagnostic/Screening (Routine) +--------+--------+ + + + + | Status | Reason | Specialty | Diagnoses / | Referred By | Referred To | | | | | Procedures | Contact | Contact | +--------+--------+ + + + + | Closed | | Radiology | Diagnoses | Damon, | | | | | | Carotid | Tomasa N, | | | | | | stenosis, | PA[address]C [address] | | | | | | right | [address] | | | | | | Procedures | [address] | | | | | | VAS Carotid | FLOOR | | | | | | Duplex | [place] | | | | | | Bilateral | [address] | | | | | | | Phone: | | | | | | | [phone] | | | | | | | Fax: | | | | | | | [phone] | | +--------+--------+ + + + + Encounter Details +--------+ + + + + | Date | Type | Department | Care Team | Description | +--------+ + + + + | 12/12/ | Hospital | [facility] | | Carotid stenosis, | | 2019 | Encounter | VASCULAR SURGERY | | right | | | | ULTRASOUND [address] | | | | | | [address] | | | | | | [facility] | | | | | | [address] | | | | | | [phone] | | | +--------+ + + + [...] + + + +---------+ + + | cephalexin | Take 1 tablet by | 14 | 0 | 12/11/19 | | | (KEFLEX) 500 MG TABS | mouth 2 times daily | tablet | | 20 | 0 | | | for 7 days. | | | | | + [...] [place] | | | | | | [place] [address] | | | | | | [phone] | | | | | | | | +--------+ + + + + | 03/13/ | Office | Neurology | Veronica, | | | 2019 | Visit | | [address] | | | | | | [address] [facility], | | | | | | [place] [address] | | | | | | [phone] | | | | | | | [...] + + documented in this encounter Results VAS Carotid Duplex Bilateral (12/13/2019 10:25 [...] | Procedure Note | + + | [facility], [id number] - 12/13/2019 11:59 AM PDT | | [...] infarction | + + documented in this encounter"
--- OUTSIDE RECORDS SUMMARY | ~2019-12-22 | XMS | Encounter Summary ---
Demographics + + + | Address | [address] | | | [place] [address] | + + + | Home Phone | | + + + | Preferred Language | Unknown | + + + | Marital Status | Single | + + + | Denominational Affiliation | 1041 | + + + [...] Team Providers + +------+ + | Care Bmet Name | Role | Phone | + +------+ + | Sydney Lennon | PCP | | + +------+ + Reason for Visit +---------+--------+ + | Reason | Onset | Comments | | | Date | | +---------+--------+ + | Consult | 10/23/ | | | | 2020 | | +---------+--------+ + Encounter Details +--------+ + + + + | Date | Type | Department | Care Team | Description | +--------+ + + + + | 10/23/ | Telephone | [facility] | Salvador Jose MD | Consult | | 2020 | | VASCULAR SURGERY | [address] | | | | | [address] | [address] | | | | | E [place], [place] | [place] [address] | | | | | [address] | [phone] | | | | | [phone] | | | +--------+ + + + [...] this encounter Miscellaneous Notes Telephone Encounter - Zoila Martinez - 10/24/2019 11:00 AM PDTSpoke with Eva Cuevas at [facility] on behalf of patient, Buck - Scheduled New Patient Consult with Dr. Jose 11/01/2019 @ 11am for Right Carotid Artery - MMN Note: Onset Dementia - History of Stroke - [facility] Connor murillo in this encounter Plan of Treatment +--------+ [...] | | | | | [address] [facility] | | | | | | [place] [address] | | | | | | [phone] | | | | | | | | +--------+ + + + + | 03/13/ | Office | Neurology | Veronica, | | | 2019 | Visit | | [address] | | | | | [address] [place], | | | | | | [place] [address] | | | | | | [phone] | | | | | | | | +--------+ + + + + documented as of this encounter Visit Diagnoses Not on filedocumented in this encounter"
--- OUTSIDE RECORDS SUMMARY | ~2019-12-22 | XMS | Encounter Summary ---
Demographics + + + | Address | [address] | | | [place] [address] | + + + | Home Phone | | + + + | Preferred Language | Unknown | + + + | Marital Status | Single | + + + | Spiritism Affiliation | 1041 | + + + | Race | Unknown | + + + | Ethnic Group | Unknown | + + + Author + + + | Author | [facility] | | | and [place] | + + + | Organization | [facility] | | | and [...] Team Providers + +------+ + | Care Tube Filler Name | Role | Phone | + +------+ + | Dominic Carlin MD | PCP | | + +------+ + Encounter Details +--------+ + + + + | Date | Type | Department | Care Team | Description | +--------+ + + + + | 12/25/ | [facility] | [facility] | Haroldo King | 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 | [address] | [place] | [phone] | | [facility] | | [address] | | | - IMAGING | | [...]
--- OUTSIDE RECORDS SUMMARY | ~2019-12-22 | XMS | Encounter Summary ---
Demographics + + + | Address | [address] | | | [place] [address] | + + + | Home Phone | | + + + | Preferred Language | Unknown | + + + | Marital Status | Single | + + + | Hoahaoism Affiliation | 1041 | + + + | Race | Unknown | + + + | Ethnic Group | Unknown | + + + Author + + + | Author | [facility] | | | and [place] | + + + | Organization | [facility] | | | and [...] Team Providers + +------+ + | Care Employment Evaluator/Case Manager Name | Role | Phone | + +------+ + | Sydney Lennon | PCP | | + +------+ + Reason for Visit + +--------+ + | Reason | Onset | Comments | | | Date | | + +--------+ + | Follow-up | 12/14/ | | | | 2020 | | + +--------+ + Encounter Details +--------+ + + + + | Date | Type | Department | Care Team | Description | +--------+ + + + + | 12/14/ | Telephone | [facility] | Yazmin Jesus, | Follow-up | | 2020 | | VASCULAR SURGERY | RN | | | | | [address] | | | | | | [place] | | | | | | [address] | | | | | | [phone] | | | +--------+ + + + [...] Telephone Encounter - Yazmin Jesus RN - 12/15/2019 9:34 AM PDTFollow up call made to patient's sister Breanne. Breanne states patient's bleeding has slowed down and he does no t seem to be experiencing any more bleeding when she saw him last night. Patient also campbell d yesterday regarding barrier cream prescription for his pressure ulcer to left buttock. De sitin ointment also called into [facility] for left buttock early pressure ulcer. Mason lopez stated appreciation for follow up call. documented in this encounter Plan of Treatment [...] | | | | | | [address] | | | | | | [place] [address] | | | | | | [phone] | | | | | | | | +--------+ + + + + | 03/13/ | Office | Neurology | Veronica, | | | 2019 | Visit | | [address] | | | | | | [address] [place], | | | | | | [place] [address] | | | | | | [phone] | | | | | | | | +--------+ + + + + documented as of this encounter Visit Diagnoses Not on filedocumented in this encounter"
--- OUTSIDE RECORDS SUMMARY | ~2019-12-22 | XMS | Encounter Summary ---
Demographics + + + | Address | [address] | | | [place] [address] | + + + | Home Phone | | + + + | Preferred Language | Unknown | + + + | Marital Status | Single | + + + | Hindu Affiliation | 1041 | + + + | Race | Unknown | + + + | Ethnic Group | Unknown | + + + Author + + + | Author | [facility] | | | and [place] | + + + | Organization | [facility] | | [...] Team Providers + +------+ + | Care Supercalender Operator Name | Role | Phone | + +------+ + | Dominic Carlin MD | PCP | | + +------+ + Encounter Details +--------+ + + + + | Date | Type | Department | Care Team | Description | +--------+ + + + + | 07/11/ | Hospital | [facility] | Wes Melvin MD | | | 2015 | Encounter | [facility] CTR [facility] | [address] | | | | | [address] | [place] [address] | | | | | [place] | [phone] | | | | | [address] | | | | | | [phone] | | | +--------+ + + + [...] | | | | | | [address] | | | | | | [place] [address] | | | | | | [phone] | | | | | | | | +--------+ + + + + | 03/13/ | Office | Neurology | Veronica, | | | 2019 | Visit | | [address] | | | | | | [address] [place], | | | | | | [place] [address] | | | | | | [phone] | | | | | | | | +--------+ + + + + documented as of this encounter Visit Diagnoses Not on filedocumented in this encounter"
--- OUTSIDE RECORDS SUMMARY | ~2019-12-22 | XMS | Encounter Summary ---
Demographics + + + | Address | [address] | | | [place] [address] | + + + | Home Phone | | + + + | Preferred Language | Unknown | + + + | Marital Status | Single | + + + | Scientology Affiliation | 1041 | + + + | Race | Unknown | + + + | Ethnic Group | Unknown | + + + Author + + + | Author | [facility] | | | and [place] | + + + | Organization | [facility] | | | [...] Team Providers + +------+ + | Care Cooper Helper Name | Role | Phone | + +------+ + PCP | Unavailable | + +------+ + Encounter Details +--------+ + + + + | Date | Type | Department | Care Team | Description | +--------+ + + + + | 08/01/ | Hospital | C GENERIC OP | Helio Fountain | | | 2004 | Encounter | CONVERSION [address] | [address] | | | | | [address] | | | | | | [place] | | | | | | [address] | | | | | | [phone] | | | +--------+ + + + [...] | | | | | [address] [facility] | | | | | | [place] [address] | | | | | | [phone] | | | | | | | | +--------+ + + + + | 03/13/ | Office | Neurology | Veronica, | | | 2019 | Visit | | [address] | | | | | | [address] [place], | | | | | | [place] [address] | | | | | | [phone] | | | | | | | | +--------+ + + + + documented as of this encounter Visit Diagnoses Not on filedocumented in this encounter"
--- OUTSIDE RECORDS SUMMARY | ~2019-12-22 | XMS | Encounter Summary ---
Demographics + + + | Address | [address] | | | [place] [address] | + + + | Home Phone | | + + + | Preferred Language | Unknown | + + + | Marital Status | Single | + + + | Lutheran Affiliation | Unknown | + + + | Race | or | + + + | Ethnic Group | Not or | + + + Author + + + | Author | [facility] | + + + | Organization | [facility] | + + + | Address | Unknown | + + + | Phone | Unavailable | + + + Support + + +---------+ + | Name | Relationship | Address | Phone | + + +---------+ + | Gautam Ray | ECON | Unknown | | + + +---------+ + Care Team Providers + +------+ + | Care Stage Electrician Helper Name | Role | Phone | + +------+ + PCP | Unavailable | + +------+ + Reason for Referral Consultation (Routine) +--------+--------+ + + + + | Status | Reason | Specialty | Diagnoses / | Referred By | Referred To | | | | | Procedures | Contact | Contact | +--------+--------+ + + + + | Closed | | Orthopedics | Diagnoses | Bridgette, | Vy, | | | | | Disorders | MD Jaswant | MD Oscar | | | | | of bursae | [address] | [address] | | | | | and tendons | [facility] | [facility] | | | | | in shoulder | Rd | Rd [place], | | | | | region, | [place], [place] | [place] | | | | | unspecified | [address] | [address] | | | | | Procedures | Phone: | Phone: | | | | | CONSULT TO | [phone] | [phone] | | | | | ORTHOPEDICS | Fax: | Fax: | | | | | AND | [phone] | [phone] | | | | | REHABILITATI | | | | | | | ON | | | +--------+--------+ + + + + Reason for Visit + + + | Reason | Comments | + + + | Return Patient | review EMG | + + + Consultation (Routine) +--------+--------+ + + + + | Status | Reason | Specialty | Diagnoses / | Referred By | Referred To | | | | | Procedures | Contact | Contact | +--------+--------+ + + + + | Closed | | Orthopedics | Diagnoses | Non-[facility] | Orfaly, | | | | | LT SHOULDER | Epic Dept | MD Jaswant | | | | | PAIN | | [address] | | | | | | | [address] | | | | | | | [place], | | | | | | | [place] | | | | | | | [address] | | | | | | | Phone: | | | | | | | [phone] | | | | | | | Fax: | | | | | | | [phone] | +--------+--------+ + + + + Encounter Details +--------+---------+ + + + | Date | Type | Department | Care Team | Description | +--------+---------+ + + + | 04/19/ | Office | Orthopaedics | Jaswant Angeles MD | Unspecified | | 2007 | Visit | [facility] | [address] | Disorders of Bursae | | | | for Health and | [address] | and Tendons in | | | | Healing [address] | [place], [place] | Shoulder Region | | | | [facility] for | [address] | (Primary Dx) | | | | Health and Healing, | [phone] | | | | | | | | | | | Floor [place], [place] | | | | | | [address] | | | | | | [phone] | | | +--------+---------+ + + + [...] of this encounter Progress Notes Jaswant Angeles - 05/06/2008 2:31 PM Mitchell patient returns for follow-up of his left delt oid dysfunction. His nerve conduction studies suggest a cervical radiculopathy over an axil ramesh neuropathy. [facility]. Follow-up will be on a prn basis based on the findings of his neck workup. documented in this encounter Plan of Treatment Not on filedocumented as of this encounter Visit Diagnoses + + | Diagnosis | + + | Disorders of bursae and tendons in shoulder region, unspecified - Primary | + + documented in this encounter"
--- OUTSIDE RECORDS SUMMARY | ~2019-12-22 | XMS | Encounter Summary ---
Demographics + + + | Address | [address] | | | [place] [address] | + + + | Home Phone [...] + + + | Author | [facility] | | | and [place] | + + + | Organization | [facility] | | | and [...] Providers + +------+ + | Care Industrial Machine System Technician Name | Role | Phone | [...] | | | | | Duplex | [place], [place] | | | | | | Bilateral | [address] | | | | | | | Phone: | | | | | | | [phone] | | | | | | | Fax: | | | | | | | [phone] | | +--------+--------+ + + + + Reason for Visit + +--------+ + | Reason | Onset | Comments | | | Date | | + +--------+ + | Follow-up | 12/05/ | | | | 2020 | | + +--------+ + Encounter Details +--------+ + + + + | Date | Type | Department | Care Team | Description | +--------+ + + + + | 12/05/ | Telephone | [facility] | Yazmin Jesus, | Follow-up | | 2020 | | VASCULAR SURGERY | RN | | | | | [address] | | | | | | [place] | | | | | | [address] | | | | | | [phone] | | | +--------+ + + + [...] Telephone Encounter - Yazmin Jesus RN - 12/11/2019 10:56 AM PDTReturn call made to [facility] Dr Jose has ordered for patient to start 500 mg Keflex twice daily. María Elena Chairez DNP faxe d order to [facility] pharmacy as requested by patient. Cecy reports that bleeding increase d when patient lays down and stops when he sits up. He has been sleeping sitting up due to this. Advise Cecy that if patient is really concerned he should head to the closest ED for immediate evaluation. Cecy states patient has declined going to the ED so far. He has a fo llow up scheduled with Dr Jose this Wednesday. She will call back if there is any issues. elephone Encounter - Dorothy Cortez - 12/11/2019 9:24 AM PDTTina, is calling again for Follow-up and would like a call back. Additional Call Details: Caller stated the patient is with his sister Cecy and can be reac hed at [phone] elephone Monae Rosen 12/11/2019 9:07 AM NICKOLAS Engel, is calling for Follow-up and would like a call back. Additional Call Details: Stated they received a call from patient and he is still bleeding , more when he lays down, and has a back odor. Feels this is an urgent matter. Please call Buck back at [phone] or Cecy, Sister in law at [phone] elephone Encounter - Yazmin Cisneros RN - 12/06/2019 9:56 AM PDTReceived call from John, patient's [id number] yesterday evening. Patient had some bleeding at distal incision site on right carotid edmund ry, there is a 1/2 inch opening per John. Advised John to place compression dressing on i ncision site. Will follow up in the morning with John. Follow up call made this morning. Patient's bleeding was controlled after compression was placed. John reports that patient is picking at his incision site. She believes that is w hat is causing the bleed and slight dehiscence. Dr Jose notified, orders received to have patient follow up next week with repeat ultrasound. No need for antibiotics at this point. John stated understanding, she will call back if there is any further concerns. Robert garcia signed by Yazmin Jesus RN at 12/06/2019 10:00 AM PDTdocumented in this encounter Plan of [...] | | | | | [address] [facility] | | | | | | [place] [address] | | | | | | [phone] | | | | | | | | +--------+ + + + + | 03/13/ | Office | Neurology | Veronica, | | | 2019 | Visit | | [address] | | | | | | [address] [facility], | | | | | | [place] [address] | | | | | | [phone] | | | | | | | | +--------+ + + + + documented as of this encounter Results VAS Carotid Duplex Bilateral [...] | stenosis Final Report Signed by: Kam Hansen, Allen | | | Sign Date/Time: 12/13/2019 11:55 [...] Procedure Note | + + | [place], [id number] - 12/13/2019 11:59 AM PDT | | [...]
--- OUTSIDE RECORDS SUMMARY | ~2019-12-22 | XMS | Encounter Summary ---
Demographics + + + | Address | [address] | | | [place] [address] | + + + | Home Phone | | + + + | Preferred Language | Unknown | + + + | Marital Status | Single | + + + | Sabianism Affiliation | 1041 | + + + | Race | Unknown | + + + | Ethnic Group | Unknown | + + + Author + + + | Author | [facility] | | | and [place] | + + + | Organization | [facility] | | | [...] Team Providers + +------+ + | Care Registered Dietetic Technician Name | Role | Phone | + +------+ + PCP | Unavailable | + +------+ + Encounter Details +--------+ + + + + | Date | Type | Department | Care Team | Description | +--------+ + + + + | 11/24/ | Hospital | [facility] | Conversion | | | 2005 - | Encounter | CENTER SUR[facility] [address] | Transaction, | | | | | [address] | Provider Unknown | | | 11/25/ | | [place], [place] | [phone] | | | 2005 | | [address] | | | | | | [phone] | | | +--------+ + + + [...] | | | | | | [address] | | | | | | [place] [address] | | | | | | [phone] | | | | | | | | +--------+ + + + + | 03/13/ | Office | Neurology | Veronica, | | | 2019 | Visit | | [address] | | | | | [address] [place], | | | | | | [place] [address] | | | | | | [phone] | | | | | | | | +--------+ + + + + documented as of this encounter Visit Diagnoses Not on filedocumented in this encounter"
--- OUTSIDE RECORDS SUMMARY | ~2019-12-22 | XMS | Encounter Summary ---
Demographics + + + | Address | [address] | | | [place] [address] | + + + | Home Phone [...] Team Providers + +------+ + | Care Non Profit Job Titles Name | Role | Phone | + +------+ + PCP | Unavailable | + +------+ + Encounter Details +--------+ + + + + | Date | Type | Department | Care Team | Description | +--------+ + + + + | 06/06/ | Hospital | [facility] | | Sprain rotator cuff | | 2003 | Encounter | CONVERSION DE[address] | | | [address] | | | | | | [place], [place] | | | | | | [address] | | | | | | [phone] | | | +--------+ + + + [...] | | | | | [address] [facility] | | | | | | [place] [address] | | | | | | [phone] | | | | | | | | +--------+ + + + + | 03/13/ | Office | Neurology | Veronica, | | | 2019 | Visit | | [address] | | | | | | [address] [place], | | | | | | [place] [address] | | | | | | [phone] | | | | | | | | +--------+ + + + + documented as of this encounter Visit Diagnoses + + | Diagnosis | + + | Sprain rotator cuff Rotator cuff (capsule) sprain | + + documented in this encounter"
--- OUTSIDE RECORDS SUMMARY | ~2019-12-22 | XMS | Encounter Summary ---
Demographics + + + | Address | [address] | | | [place] [address] | + + + | Home Phone [...] + + + | Author | [facility] | | | and [place] | + + + | Organization | [facility] | | | [...] Team Providers + +------+ + | Care Barrel Bander Name | Role | Phone | + +------+ + | Domiinc Carlin MD | PCP | | + +------+ + Encounter Details +--------+ + + + + | Date | Type | Department | Care Team | Description | +--------+ + + + + | /04/ | Orders Only | [facility] | Haroldo King | S/P cervical spinal | | 2015 | | NEUROSURGERY [address] | [address] | fusion (Primary Dx) | | | | [address] [place] | | | | | [place], [place] | [address] | | | | | [address] | | | | | | [phone] | | | +--------+ + + + [...] [facility] | | | | | | [address] | | | | | | [place] [address] | | | | | | [phone] | | | | | | | | +--------+ + + + + | 03/13/ | Office | Neurology | Veronica, | | | 2019 | Visit | | [address] | | | | [address] [place], | | | | | | [place] [address] | | | | | | [phone] | | | | | | | [...] Postop. COMPARISON: 07/26/2014. FINDINGS: Visualized skull | [facility] | | base and facial structures demonstrate [...] + + | Performing | Address | City/State[facility] | Phone Number | | Organization | | | | + + + + + | [facility] | [address] | [place], [place] | [phone] | | [facility] | | [address] | | | - IMAGING | | | | + + + + + documented in this encounter Visit Diagnoses + + | Diagnosis | + + | S/P cervical spinal fusion - Primary Arthrodesis status | + + documented in this encounter"
--- OUTSIDE RECORDS SUMMARY | ~2019-12-22 | XMS | Encounter Summary ---
Demographics + + + | Address | [address] | | | [place] [address] | + + + | Home Phone | | + + + | Preferred Language | Unknown | + + + | Marital Status | Single | + + + | Buddhist Affiliation | 1041 | + + + | Race | Unknown | + + + | Ethnic Group | Unknown | + + + Author + + + | Author | [facility] | | | and [place] | + + + | Organization | [facility] | | | [...] Team Providers + +------+ + | Care Bundle Helper Name | Role | Phone | [...] + + | 11/05/ | Telephone | [facility] | Salvador Jose MD | Other (Appointment | | 2020 | | VASCULAR SURGERY | [address] | Notes Request) | | | | [address] | [address] [facility] | | | | | E [place], [place] | [place] [address] | | | | | [address] | [phone] | | | | | [phone] | | | +--------+ + + + [...] - Jennyfer Rojo - 11/06/2019 2:45 PM [facility], is calling regarding Other (Appointment Notes Request) and would like a call back. Additional Call Details: Is wanting to know if the appointment notes from the 11/01/19 tele phonic visit can be sent to their medical records at fax: [phone]. If this is a symptom based call, was patient offered triage? Not Applicable If this is a symptom based call and you were unable to immediately transfer the call to a brandon jane tobacco packing machine operator was caller made aware that if at [...] [address] | | | | | | [place] [address] | | | | | | [phone] | | | | | | | | +--------+ + + + + | 03/13/ | Office | Neurology | Veronica, | | | 2020 | Visit | | [address] | | | | [address] [place], | | | | | | [place] [address] | | | | | | [phone] | | | | | | | | +--------+ + + + + documented as of this encounter Visit Diagnoses Not on filedocumented in this encounter"
--- OUTSIDE RECORDS SUMMARY | ~2019-12-22 | XMS | Encounter Summary ---
Demographics + + + | Address | [address] | | | [place] [address] | + + + | Home Phone | | + + + | Preferred Language | Unknown | + + + | Marital Status | Single | + + + | Muslim Affiliation | 1041 | + + + | Race | Unknown | + + + | Ethnic Group | Unknown | + + + Author + + + | Author | [facility] | | | and [place] | + + + | Organization | [facility] | | [...] Team Providers + +------+ + | Care Group Managing Director Name | Role | Phone | + +------+ + | Dominic Carlin MD | PCP | | + +------+ + Encounter Details +--------+ + + + + | Date | Type | Department | Care Team | Description | +--------+ + + + + | 07/11/ | Hospital | [facility] | Wes Melvin MD | | | 2015 | Encounter | MED CTR LAB[facility]ORY | [address] | | | | | [address] | [place] [address] | | | | | [place] | [phone] | | | | | [address] | | | | | | [phone] | | | +--------+ + + + [...] | | | | | [place] [address] | | | | | | [phone] | | | | | | | | +--------+ + + + + | 03/13/ | Office | Neurology | Veronica, | | | 2019 | Visit | | [address] | | | | | | [address] [place], | | | | | | [place] [address] | | | | | | [phone] | | | | | | | | +--------+ + + + + documented as of this encounter Visit Diagnoses Not on filedocumented in this encounter"
--- OUTSIDE RECORDS SUMMARY | ~2019-12-22 | XMS | Encounter Summary ---
Demographics + + + | Address | [address] | | | [place] [address] | + + + | Home Phone | | + + + | Preferred Language | Unknown | + + + | Marital Status | Single | + + + | Amish Affiliation | Unknown | + + + | Race | or | + + + | Ethnic Group | Not or | + + + Author + + + | Author | [facility] [employer] [facility] | + + + | Organization | [...] Team Providers + +------+ + | Care Postal Transportation Clerk Name | Role | Phone | + [...] Closed | | Orthopedics | Diagnoses | Pro, | [place], | | | | | Disorders | MD Lewis | MD Jaswant | | | | | of bursae | [address] | [address] | | | | | and tendons | Bob | [address] | | | | | in shoulder | [address] | [place], | | | | | region, | [place], [place] | [place] | | | | | unspecified | [address] | [address] | | | | | Procedures | Phone: | Phone: | | | | | CONSULT TO | [phone] | [phone] | | | | | ORTHOPEDICS | | Fax: | | | | | AND | | [phone] | | | | | REHABILITATI | | | | | | | ON | | | +--------+--------+ + + + + Reason for Visit + + + | Reason | Comments | + + + | New patient | left shoulder | | consultation | | + + + Consultation (Routine) [...] | | | | | | [place], | | | | | | | [place] | | | | | | | [address] | | | | | | | Phone: | | | | | | | [phone] | | | | | | | Fax: | | | | | | | [phone] | +--------+--------+ + + + + Encounter Details +--------+---------+ + + + | Date | Type | Department | Care Team | Description | +--------+---------+ + + + | 02/08/ | Office | Orthopaedics | Jaswant Angeles MD | Shoulder Pain; | | 2007 | Visit | [facility] at [facility] | [address] | Unspecified | | | | for Health and | [address] | Disorders of Bursae | | | | Healing [address] | [place], [place] | and Tendons in | | | | [facility] for | [address] | Shoulder Region | | | | Health and Healing, | [phone] | | | | | | | | | | | Floor [place], [place] | | | | | | [address] | | | | | | [phone] | | | +--------+---------+ + + + [...] + + + + | Weight | 111.6 kg (246 lb) | 02/09/2008 9:10 AM | | | | | PDT | | + + + + + | Height | 170.2 cm (5' 7") | 02/09/2008 9:10 AM | | | | | PDT | | + + + + + | Body Mass Index | 38.53 | 02/09/2008 9:10 AM | | | | | PDT | | + + + + + documented in this encounter Progress Notes Jaswant Angeles - 02/13/2008 5:45 PM ARYAThank you for asking me to consult with this 63 y.o . right-hand dominant male for assessment of left shoulder dysfunction of 9 months duration. The symptoms are inability to raise his arm with very little pain. The patient has underg one physical therapy without significant detention benefit. He has a history of left shoulde r RCT from a lifting incident in August 2006. He underwent an left RCR in October of that yea r. Post-op he had difficulty with shoulder abduction and forward flexion. A second orthopaed ic consult was obtained where an EMG was ordered. This EMG showed intact innervation of the SS, IS, Sub Scap and trapezius. The Axillary Nerve had delays and the deltoid exhibited fibr ilation potentials. His MRI also revealed re-rupture of his RC post-repair. Chart was availa be and fully reviewed. The patient's past medical, social, and family history; review of systems; medications; and allergies are included on the patient questionnaire. On physical examination, Buck appears his stated age and in good general health in no appar ent distress. Ht 1.702 m (5' 7") | Wt 111.585 kg (246 lbs). He has normal contour and symmet ry of the right upper extremitie with no ecchymosis, swelling, or muscular atrophy. He has a healed incision over the right shoulder consistent with open RCR. The left shoulder has sig nificant atrophy of the deltoid and possibly the SS and IS fossa and healed incsions from RCR. The right shoulder has 180 degrees elevation, 60 degrees external rotation and internal ro tation to T4. The left shoulder has 10 degrees elevation, 10 degrees external rotation and internal rota tion to T4. Passive ROM of the left shoulder is full. Sensation is intact over the axillary distribuition. There is no localized pain and tenderness over the left shoulder. He has ne gative Gutierrez sign, negative Neer sign. Motor power is graded at 5/5 for the supraspinatus , infraspinatus, subscapularis, anterior and middle deltoid on the right. Positive drop arm test on the left. The patient had normal radial and ulnar pulses at the wrist and normal dis ailyn motor and sensory function. Radiographs of the left shoulder were reviewed and demonstrated changes consitent with prev ious RCR and SAD.. An MRI was not available for review. A report from 03/23 suggests re-rupture of SS, IS tend ons. Impression: Buck Bell has left shoulder full-thickness rotator cuff tear and possibl e denervation of the left deltoid. His EMG and MRI are both nearing one year since they were completed. I would like to obtain a repeat EMG and MRI to investigate the progress here. He may be a candidate for a nerve transfer of the radial branch to the triceps to the axillary nerve, although the window of time in which we can consider this is quickly closing. He may also benefit from a revision open RCR if his muscles are not significantly atrophied on MRI . Of particular interest on the MRI will be the status of the teres minor as this is usually not affected by a RCR, whereas Axillary nerve lesion may lead to atrophy. He will follow-up DAVID with these studies. do cumented in this encounter Plan of Treatment + +---------+--------+ + + | Name | Type | Priori | Associated Diagnoses | Date/Time | | | | ty | | | + +---------+--------+ + + | MRI SHOULDER LT WO | Imaging | Routin | Unspecified | 02/16/2008 8:00 PM | | CONT | | e | Disorders of Bursae | PDT | | | | | and Tendons in | | | | | | Shoulder Region | | + +---------+--------+ + + + + +--------+ + + | Name | Type | Priori | Associated Diagnoses | Order Schedule | | | | ty | | | + + +--------+ + + | EMG/NERVE CONDUCTION | Procedures | Routin | Unspecified | Ordered: 02/09/2008 | | STUDIES - ORTHO | | e | Disorders of Bursae | | | | | | and Tendons in | | | | | | Shoulder Region | | + + +--------+ + + documented as of this encounter Procedures + +--------+ + + + | Procedure Name | Priori | Date/Time | Associated Diagnosis | Comments | | | ty | | | | + +--------+ + + + | X-RAY SHOULDER 3+ | Routin | 02/09/2008 | Shoulder Pain | Results for this | | VIEWS LEFT | e | 9:09 AM | | procedure are in the | | | | PDT | | results section. | + +--------+ + + + documented in this encounter Results X-RAY SHOULDER 3+ VIEWS LEFT (02/09/2008 9:09 AM PDT) + + + + + + | Component | Value | Ref Range | Performed | Pathologist | | | | | At | Signature | + + + + + + | SHOULDER 3+ | STUDY: SHOULDER 3 VIEWS | | | | | VIEWS LEFT | LEFT 02/09/08 | | | | | | 09:18:00HISTORY: | | | | | | PainCOMPARISON: | | | | | | None.FINDINGS:There is | | | | | | evidence of prior distal | | | | | | clavicular resection | | | | | | and presumedrotator cuff | | | | | | repair with four bone | | | | | | anchors in the superior | | | | | | lateralleft humeral | | | | | | head. There is mild | | | | | | superior migration of | | | | | | the humeralhead likely | | | | | | reflecting chronic | | | | | | rotator cuff | | | | | | insufficiency. A 4 | | | | | | mmcalcific density | | | | | | projects along the | | | | | | inferior margin of the | | | | | | glenoid.No acute | | | | | | fracture is | | | | | | seen.IMPRESSION:1. | | | | | | Postsurgical changes | | | | | | in the left shoulder. | | | | | | Mild superiormigration | | | | | | of the humeral head | | | | | | likely reflects chronic | | | | | | rotator | | | | | | cuffinsufficiency.2. | | | | | | Calcific density at | | | | | | the inferior margin of | | | | | | the glenoid | | | | | | couldrepresent a small | | | | | | intra-articular body or | | | | | | a dystrophic | | | | | | calcification.I have | | | | | | personally viewed this | | | | | | procedure/exam and | | | | | | reviewed this | | | | | | report.STATUS FINAL / | | | | | | Dr. VESNA HEATON | | | | + + + + + + + + | Specimen | + + | | + + + +---------+ + + | Performing | Address | City/State/Zipcode | Phone Number | | Organization | | | | + +---------+ + + | [facility] DEPARTMENT OF | | | | | RADIOLOGY | | | | + +---------+ + + documented in this encounter Visit Diagnoses + + | Diagnosis | + + | Shoulder pain Pain in joint, shoulder region | + + | Disorders of bursae and tendons in shoulder region, unspecified | + + documented in this encounter
--- OUTSIDE RECORDS SUMMARY | ~2019-12-22 | XMS | Encounter Summary ---
Demographics + + + | Address | [address] | | | [place] [address] | + + + | Home Phone | | + + + | Preferred Language | Unknown | + + + | Marital Status | Single | + + + | [employer]aritan Affiliation | [id number] | + + + [...] Team Providers + +------+ + | Care Plaster Molder Name | Role | Phone | + [...] | | | | | | | NE | | | | | | | [...] Description | +--------+---------+ + + + | 11/30/ | Surgery | [facility] | Salvador Jose MD | CAROTID | | 2019 | [facility] | [address] | ENDARTERECTOMY | | | | OPERATING ROOM [address] | [facility] | | | | | [address] | [place] [address] | | | | | [place], [place] | [phone] | | | | | [address] | | | | | | [phone] | | | +--------+---------+ + + + [...] + + + | Blood Pressure | 161/74 | 12/01/2019 9:47 AM | | | | | PDT | | + + + + + | Pulse | 57 | 12/01/2019 9:47 AM | | | | | PDT | | + + + + + | Temperature | 36.8 C (98.2 F) | 12/01/2019 9:47 AM | | | | | PDT | | + + + + + | Respiratory Rate | 17 | 12/01/2019 9:47 AM | | | | | PDT | | + + + + + | Oxygen Saturation | 96% | 12/01/2019 9:47 AM | | | [...] Physician Discharge Summary Patient ID: Buck Bell [id number] 74 y.o. 1945 Admit date: 12/01/2019 Discharge [...] family was telephoned for dischar ge planning. Cecy, John, and Julian were called to be made [...] as needed. aka: PHENERGAN Discontinued Medications Aspirin Buf(FxAwuc-SvAljm-VqI) 81 MG Tabs clopidogrel 75 mg tablet [...] Care Everywhere.Carotid Endarte rectomy, Discharge Instructions for (Yi)documented in this encounter Medications at Time of [...] bite staff. MD placed discharge order, however, prim yuly RN and this nurse (lead RN) did not feel comfortable discharging the patient. Primary RN informed NICKOLAS Fatou Morales of unsafe discharge; however, she spoke with the family and they uche bro agreed to take patient home. This RN talk to brother Julian and sister in law Lopez abou t patient's current health status and his safety after leaving the hospital under his condit ion. However, they felt comfortable taking the patient home either way. [facility] was also notifie d of the situation. [...] and family. DAHIANA PABLO RN P M PDTDahiana Pablo RN - 12/03/2019 3:18 PM PDTPatient's brotherJulian [...] this bad". Waiting for her and patient's brotheruJlian to come to bedside. I f patient is able to calm down and follow commands, he may be able to be discharged home. F luanne definitely wants to take patient home. Will continue to monitor. DAHIANA PABLO RNElectr onically signed by Dahiana aPblo RN at 12/03/2019 2:22 PM Salvador Rose MD - 12/03/19 20 11:07 AM PDT [facility] Service: Vascular Surgery Progress Note Hospital Day: LOS: 0 days Post-Op Day: 2 SUBJECTIVE Patient Summary: 74 yo male s/p right CEA for symptomatic carotid stenosis Events Overnight: More aggressive overnight. Patient with known history of vascular dementia with aggressive behaviors. Calm this morning, but in 4 point restraints. LEXA [facility] ed. Hemodynamically stable. OBJECTIVE Vital Signs: Vitals: [...] - 12/03/2019 10:19 AM PDTSpoke with John Ray, patient's sister in law (n ot daughter [...] condition unchan ged. DAHIANA PABLO RN r eesommerDahiana RN - 12/03/2019 9:48 AM PDTPt is [...] 12/03/2019 9:51 AM Flako Delgado RN - 020 7:01 AM PDTSee previous note. Pt A/O [...] Electronically signed by Flako Brady RN at 020 7:01 AM Flako Delgado RN - 12/03/2019 12:15 AM [id number] pulling at [place] and l lb, even [...] le, and scrabble, other puzzle games like Cubby, dynaTrace software. Play computer/mobile applications such as eCollect and Together Mobile GAMES "Patient cannot make medical decisions for [...] Rose MD - 12/02/2019 9:01 AM PDT [facility] Service: Vascular Surgery Progress Note Hospital [...] patient's return. Will have case management tacho to see if any needed services are [...] Salvador Jose MD, 12/01/2019 10:52 AM PDT [facility] sSalvador barger MD - 0 11/15/2019 10:30 AM [facility] [address] [place] [address] Office: [phone] DATE OF VISIT: 11/15/19 PATIENT NAME: Buck Bell : 1945; AGE: 74 y.o.; Sex:M PHONE NUMBER: ; (Work); ; PHYSICIAN: Salvador Jose MD PRIMARY CARE / REFERRING PHYSICIAN: No ref. provider found / HALI Thurman / [id number] / [place] [id number] / REASON FOR EVALUATION / CHIEF COMPLAINT: Follow up evaluation regarding bilateral carot id stenosis HISTORY OF PRESENT ILLNESS: Buck Bell is a 74 y.o. male patient who presents fo r follow up regarding his bilateral carotid stenosis. He [place] [facility] and was seen at the ED at [facility] for headache and neck pain complaint s in 04/2019. 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 Given his recurrent dizziness and previous [...] home alone, but has home care nurse ashlie e a week. He ambulates with walker [...] Patient understands and is agreeable. Dictation software, [employer], used which may contain error for similar sounding words even af ter review. Personal communication requested for any clarification. Portions of this chart may have been copied from previous notes for continuity of care purp ose Attending Note: Documentation assistance provided by Daljit Solis (Randy). Information re corded by the jaquelineibe has been reviewed and validated by me. I agree with its contents. Signed by: Randy Wolf 11/15/19, 11:11 AM PDT Salvador Jose MD Vascular Surgery documented in this enc ounter Miscellaneous Notes Plan of Care - Manisha Carrasco, PT - 12/03/2019 9:35 AM PDT Physical Therapy Re-Assessment Note Recommended discharge disposition: retirement facility Post discharge physical therapy recommendation: ongoing [...] two are going to , your next". Profile Mill Operator Tape Control appea r equal and intact. Concern re: decline in status and fall w/hitting head SLOT FLOOR PERSON. May benefit from MD f/u for possible head and neck imaging to r/o infarction or fx. Will continue to f karen for change in status and f/u POC. RN to f/u w/. Cognitive Assessment Cognitive Comments: disoriented x4, hx vascular dementia but apparently worse since yesterd ay, limited participation and illogical perseverative speech Goals Reflects last filed data and may be from multiple contributors. All Bed Mobility Goal Most Recent Value LTG Status new at 12/02/2019 1250 LTG Wilbarger Level modified independent at 12/02/2019 1250 LTG Assistive Device none at 12/02/2019 1250 All Transfers Goal Most Recent Value LTG Status new at 12/02/2019 1250 LTG Wilbarger Level modified independent at 12/02/2019 1250 LTG Assistive Device 2 wheeled walker (FWW) at 12/02/2019 1250 Gait Goal Most Recent Value LTG Status new at 12/02/2019 1250 LTG Wilbarger Level modified independent at 12/02/2019 1250 LTG Assistive Device 2 wheeled walker (FWW) at 12/02/2019 1250 LTG Distance (feet) 800ft at 12/02/2019 1250 PT Time Calculation Individual Start Time: 934 Individual Stop Time: 45 Individual Total Time: 10 PT Total Treatment Time: 10 lan of Care - Flako Thibodeaux RN - 12/03/2019 2:58 AM PDT Problem: Restraint/Seclusion [...] Therapy Initial Evaluation Note Recommended discharge disposition: retirement facility Post discharge physical therapy recommendation: will [...] nerves/numbnes s and vascular- lives alone in [place], [place]- he stated no help available to assist him Prior Functional Level Comment: c/o being dizzy since his neck surgery- and numbness in B-h ands/feet Precautions Precaution Comment: c/o dizziness and vpqxzgjj-S-zfhkh/feet and poor historian Precautions/Limitations: falls, hard of hearing, other (see comments)([facility]) Cognitive Assessment Cognitive Comments: not able to say month- year only hosp- not kadlec- unsure of answers gi vivian -flat affect Mood/Behavior: cooperative Bed Mobility Bed Mobility Comments: declined today- he was up in recliner did not want to do bed mobs b/ c of pain Transfers Additional Documentation: sit to/from stand Sit-Stand, Level of Wilbarger: minimal assist (75% patient effort), verbal cues required Stand-Sit, Level of Wilbarger: verbal cues required, minimal assist (75% patient effort) Kwq-Gxapm-Vil, Assistive Device: gait belt, 2 wheeled walker (FWW) Safety Issues: weight-shifting ability decreased Gait Level of Wilbarger: moderate assist (50% patient effort), verbal cues [...] LTG Status new at 12/02/2019 1250 LTG Wilbarger Level modified independent at 12/02/2019 1250 LTG Assistive Device none at 12/02/2019 1250 All Transfers Goal Most Recent Value LTG Status new at 12/02/2019 1250 LTG Wilbarger Level modified independent at 12/02/2019 1250 LTG Assistive Device 2 wheeled walker (FWW) at 12/02/2019 1250 Gait Goal Most Recent Value LTG Status new at 12/02/2019 1250 LTG Wilbarger Level modified independent at 12/02/2019 1250 LTG [...] Information Family Contact Information: Name: Breanne . [place] Needs Assessment Current Outpt/Agency/Support Groups: none Services [...] Jose MD - 12/01/2019 4:26 PM PDT [facility] OPERATIVE REPORT PATIENT NAME: Buck Bell AGE: [...] Salvador Jose MD, 12/01/2019 4:26 PM PDT [facility] documented in this enc ounter Plan of [...] | | | | | [address] [place] | | | | | | [place] [address] | | | | | | [phone] | | | | | | | | +--------+ + + + + | 03/13/ | Office | Neurology | Veronica, | | | 2019 | Visit | | Angie MINE CAR REPA[address] | | | | | | [address] [facility] [place], | | | | | | [place] [address] | | | | | | [phone] | | | | | | | [...] | 8.6 | 8.5 - 10.5 | [facility] | | | | | mg/dL | LABORATORY | | + + + + + + | Estimated | >60Comment: GFR <60: | >60 | [facility] | | | GFR | CHRONIC KIDNEY [...] | | | | | | MDRD IDIL traceable | | | | | | equation.Testing | | | | | | performed at [facility], [address] | | | | | | [facility], | | | | | | [place] [address] | | | | + + + + + + + + | Specimen | + + | Blood | + + + + + + + | Performing | Address | City/State/Zipcode | Phone Number | | Organization | | | | + + + + + | [facility] | [address] | [place] [address] | [phone] | + + + + + CBC no Differential (12/03/2019 6:18 AM PDT) + + + + + + | Component | Value | Ref Range | Performed | Pathologist | | | | | At | Signature | + + + + + + | WBC | 12.58 (H) | 3.80 - 11.00 | [facility] | | | | | K/uL | [...] LABORATORY | | | | performed at [facility], [address] | | | [address] | [address], | | | | | | [place] [address] | | | | + + + + + + + + | Specimen | + + | Blood | + + + + + + + | Performing | Address | City/State/Zipcode | Phone Number | | Organization | | | | + + + + + | [facility] | [address] | [place] [address] | [phone] | + + + + + Basic [...] | | | | | performed at [facility], [address] | | | | | | [facility], | | | | | | [place] [address] | | | | + + + + + + + + | Specimen | + + | Blood | + + + + + + + | Performing | Address | City/State/Zipcode | Phone Number | | Organization | | | | + + + + + | [facility] | [address] | [place] [address] | [phone] | + + + + + CBC [...] | | | Absolute | performed at [facility], [address] | K/uL | LABORATORY | | | | [address], | | | | | | [place] [address] | | | | + + + + + + + + | Specimen | + + | Blood | + + + + + + + | Performing | Address | City/State/Zipcode | Phone Number | | Organization | | | | + + + + + | [facility] | [address] | [place] [address] | [phone] | + + + + + Hemoglobin [...] Testing | 39.0 - 50.0 % | TIP | | | | performed at [facility];[address] | | LABORATORY | | | | [address];[place], [place] | | | | | | [address] | | | | + + + + + + + + | Specimen | + + | Blood | + + + + + + + | Performing | Address | City/State/Zipcode | Phone Number | | Organization | | | | + + + + + | [facility] | [address] | [place] [address] | [phone] | + + + + + Surgical [...] plaque | | | with extensive calcification. JVR:[facility]:C2NR MICROSCOPIC | | | EXAMINATION:Histologic sections of [...] | | | component was performed by [facility], [address] [place] [address], | | | [place] [address] (Sponge Press Operator: Shannan Archer MD; CLIA# | | | [id number]). Professional interpretation was performed by[facility] | | | Diagnostics[address] | | | [facility] [place] [address] (Sponge Press Operator: Issa | | | Kam Palacio). Diagnostician: Issa Palacio | | | MDPathologistElectronically Signed 12/05/2019 | | |The technical component was performed by [facility], [address] [place] [address] (Sponge Press Operator: Shannan Archer MD; IA# [id number]). Professional interpretation w as performed by | | |[facility] [address] (Sponge Press Operator: Issa Palacio M.D.). | | | | [...] + + + | [facility] | [id number] | | [facility] | | | | | | LABORATORY | | + + + + + + | [facility] | Testing performed at | | [facility] | | | | [facility];[address] | | LABORATORY | | | | [address];[place] [address] | | | | + + + + + + + + | Specimen | + + | Blood | + + + + + + + | Performing | Address | City/State/Zipcode | Phone Number | | Organization | | | | + + + + + | [facility] | [address] | [place] [address] | [phone] | + + + + + CBC [...] | | Absolute | performed at [facility];[address] | K/uL | LABORATORY | | | | [address];[place] | | | | | | [address] | | | | + + + + + + + + | Specimen | + + | Blood | + + + + + + + | Performing | Address | City/State/Zipcode | Phone Number | | Organization | | | | + + + + + | [facility] | [address] | [place] [address] | [phone] | + + + + + Basic [...] | | | | | | MDRD [facility] traceable | | | | | | equation.Testing | | | | | | performed at [facility];[address] | | | | | | [facility];[place], [place] | | | | | | [address] | | | | + + + + + + + + | Specimen | + + | Blood | + + + + + + + | Performing | Address | City/State/Zipcode | Phone Number | | Organization | | | | + + + + + | [facility] | [address] | [place] [address] | [phone] | + + + + + documented [...] | | +---+---+ + +-------+ +--------+---+---+ | thrombin (recombinant) | Given | 12/01/19 | 5,000 | | | | (RECOTHROM) solution PRN, | | 20 3:30 | Units | | | | Starting 12/01/19 at 1530, | | PM PDT | | | | | Intra-op | | | | | | + +-------+ +--------+---+---+ +---+---+ | | | +---+---+ documented in this encounter
--- OUTSIDE RECORDS SUMMARY | ~2019-12-22 | XMS | Encounter Summary ---
Demographics + + + | Address | [address] | | | [place] [address] | + + + | Home Phone [...] | Organization | [facility] [...] Team Providers + +------+ + | Care Battalion Fire Chief Name | Role | Phone | + +------+ + | Dominic Carlin MD | PCP | | + +------+ + Encounter Details +--------+ + + + + | Date | Type | Department | Care Team | Description | +--------+ + + + + | 01/18/ | Abstract | [facility] | Wes Melvin MD | | | 2013 | | NEUROSURGERY [address] | [address] | | | | | [address] | [place] [address] | | | | | [place] | [phone] | | | | | [address] | | | | | | [phone] | | | +--------+ + + + [...] | | | | | TOY [address] [facility] | | | | | | [place] [address] | | | | | | [phone] | | | | | | | | +--------+ + + + + | 03/13/ | Office | Neurology | Veronica, | | | 2019 | Visit | | [address] | | | | | | 4TH [facility], | | | | | | [place] [address] | | | | | | [phone] | | | | | | | | +--------+ + + + + documented as of this encounter Visit Diagnoses Not on filedocumented in this encounter"
--- OUTSIDE RECORDS SUMMARY | ~2019-12-22 | XMS | Encounter Summary ---
Demographics + + + | Address | [address] | | | [place] [address] | + + + | Home Phone [...] + + + | Author | [facility] | | | and [place] | + + + | Organization | [facility] | | | [...] Team Providers + +------+ + | Care Turret Lathe Set Up Operator Name | Role | Phone | [...] + + | 11/14/ | Telephone | [facility] | Salvador Jose MD | Procedure (11/24/19) | | 2020 | | VASCULAR SURGERY | [address] | | | | | [address] | [facility] E [facility] | | | | | E [place], [place] | [place] [address] | | | | | [address] | [phone] | | | | | [phone] | | | +--------+ + + + [...] transfer the call to a brandon jane assembler for puller over hand was caller made aware that if at [...] | | | | | [place] [address] | | | | | | [phone] | | | | | | | | +--------+ + + + + | 03/13/ | Office | Neurology | Veronica, | | | 2020 | Visit | | [address] | | | | | | [address] [place], | | | | | | [place] [address] | | | | | | [phone] | | | | | | | | +--------+ + + + + documented as of this encounter Visit Diagnoses Not on filedocumented in this encounter"
--- OUTSIDE RECORDS SUMMARY | ~2019-12-22 | XMS | Encounter Summary ---
Demographics + + + | Address | [address] | | | [place] [address] | + + + | Home Phone | | + + + | Preferred Language | Unknown | + + + | Marital Status | Single | + + + | Anabaptist Affiliation | Unknown | + + + | Race | or | + + + | Ethnic Group | Not or | + + + Author + + + | Author | [facility] | + + + | Organization | [...] Team Providers + +------+ + | Care Cement Tile Maker Name | Role | Phone | + [...] | | | | and tendons | [facility] | [facility] | | | | | in shoulder | Rd | Rd [place], | | | | | region, | [place], [place] | [place] | | | | | unspecified | [address] | [address] | | | | | Procedures | Phone: | Phone: | | | | | CONSULT TO | [phone] | [phone] | | | | | ORTHOPEDICS | Fax: | Fax: | | | | | AND | [phone] | [phone] | | | | | REHABILITATI | [...] | | | | | | [place], | | | | | | | [place] | | | | | | | [address] | | | | | | | Phone: | | | | | | | [phone] | | | | | | | Fax: | | | | | | | [phone] | +--------+--------+ + + + + Encounter Details +--------+---------+ + + + | Date | Type | Department | Care Team | Description | +--------+---------+ + + + | 04/19/ | Office | Orthopaedics | Jaswant Angeles MD | Unspecified | | 2007 | Visit | [facility] at [facility] | [address] | Disorders of Bursae | | | | for Health and | [address] | and Tendons in | | | | Healing [address] | [place], [place] | Shoulder Region | | | | [facility] for | [address] | (Primary Dx) | | | | Health and Healing, | [phone] | | | | | | | | | | | Floor [place], [place] | | | | | | [address] | | | | | | [phone] | | | +--------+---------+ + + + [...]
--- OUTSIDE RECORDS SUMMARY | ~2019-12-22 | XMS | Encounter Summary ---
Demographics + + + | Address | [address] | | | [place] [address] | + + + | Home Phone | | + + + | Preferred Language | Unknown | + + + | Marital Status | Single | + + + | Confucianist Affiliation | 1041 | + + + | Race | Unknown | + + + | Ethnic Group | Unknown | + + + Author + + + | Author | [facility] | | | and [place] | + + + | Organization | [facility] | | | [...] Team Providers + +------+ + | Care Radiation Oncology Therapist Name | Role | Phone | + [...] + + | 11/08/ | Telephone | [facility] | Salvador Jose MD | Other (thoughts on | | 2019 | | VASCULAR SURGERY | [address] | the CT) | | | | [address] | TO[address] [facility] | | | | | E [place], [place] | [place] [address] | | | | | [address] | [phone] | | | | | [phone] | | | +--------+ + + + [...] leave a ppointment time on voicemail at [phone] elephone Yazmin Alonzo RN - 11/09/2019 3:15 [...] transfer the call to a brandon jane diesel pile hammer operator was caller made aware that if [...] | | | | | TO[address] [facility] | | | | | | [place] [address] | | | | | | [phone] | | | | | | | | +--------+ + + + + | 03/13/ | Office | Neurology | Veronica, | | | 2019 | Visit | | [address] | | | | | | [address] [place], | | | | | | [place] [address] | | | | | | [phone] | | | | | | | | +--------+ + + + + documented as of this encounter Visit Diagnoses Not on filedocumented in this encounter"
--- OUTSIDE RECORDS SUMMARY | ~2019-12-22 | XMS | Encounter Summary ---
Demographics + + + | Address | [address] | | | [place] [address] | + + + | Home Phone [...] Organization | [facility] [...] Team Providers + +------+ + | Care Molded Rubber Goods Cutter Name | Role | Phone | + +------+ + | Sydney Lennon | PCP | | + +------+ + Encounter Details +--------+ + + + + | Date | Type | Department | Care Team | Description | +--------+ + + + + | 11/19/ | Orders Only | [facility] | Mraía Elena Chairez DNP | COVID-19 ruled out | | 2020 | | VASCULAR SURGERY | [address] | (Primary Dx) | | | | [address] | [address] [facility] | | | | | E [place] | [address] | | | | | [address] | | | | | | [phone] | | | +--------+ + + + [...] | | | | | TO[address] [facility] | | | | | | [place] [address] | | | | | | [phone] | | | | | | | | +--------+ + + + + | 03/13/ | Office | Neurology | Veronica, | | | 2019 | Visit | | [address] | | | | | | [facility] | | | | | | [place] [address] | | | | | | [phone] | | | | | | | [...]
--- OUTSIDE RECORDS SUMMARY | ~2019-12-22 | XMS | Encounter Summary ---
Demographics + + + | Address | [address] | | | [place] [address] | + + + | Home Phone | | + + + | Preferred Language | Unknown | + + + | Marital Status | Single | + + + | Latter Day Affiliation | 1041 | + + + | Race | Unknown | + + + | Ethnic Group | Unknown | + + + Author + + + | Author | [facility] | | | and [place] | + + + | Organization | [facility] | | [...] Team Providers + +------+ + | Care Biology Department Chair Name | Role | Phone | + +------+ + | Sydney Lennon | PCP | | + +------+ + Reason for Visit + + + | Reason | Comments | + + + | Follow-up | carotid stenosis | + + + Encounter Details +--------+---------+ + + + | Date | Type | Department | Care Team | Description | +--------+---------+ + + + | 11/14/ | Office | [facility] | Salvador Jose MD | Carotid stenosis, | | 2019 | Visit | VASCULAR SURGERY | [address] | bilateral (Primary | | | | [address] | [address] | Dx) | | | | E [place], [place] | [place] [address] | | | | | [address] | [phone] | | | | | [phone] | | | +--------+---------+ + + + [...] this encounter Last Filed Vital Signs + +---------+ + + | Vital Sign | Reading | Time Taken | Comments | + +---------+ + + | Blood Pressure | 151/70 | 11/15/2019 10:29 AM | | | | | PDT | | + +---------+ + + | Pulse | 55 | 11/15/2019 10:29 AM | | | | | PDT | | + +---------+ + + | Temperature | - | - | | + +---------+ + + | Respiratory Rate | - | - | | + +---------+ + + | Oxygen Saturation | 99% | 11/15/2019 10:29 AM | | | | | PDT | | + +---------+ + + | Inhaled Oxygen | - | - | | | Concentration | | | | + +---------+ + + | Weight | - | - | | + +---------+ + + | Height | - | - | | + +---------+ + + | Body Mass Index | - | - | | + +---------+ + + documented in this encounter Functional [...] encounter Progress Notes Salvador Jose MD - 11/15/2019 10:30 AM [facility] [address] [place] [address] [place] [address] Office: [phone] DATE OF VISIT: 11/15/19 PATIENT NAME: Buck Bell : 1945; AGE: 74 y.o.; Sex:M PHONE NUMBER: ; (Work); ; PHYSICIAN: Salvador Jose MD PRIMARY CARE / REFERRING PHYSICIAN: No ref. provider found / HALI Thurman / [address] / [place] [address] / REASON FOR EVALUATION / CHIEF COMPLAINT: Follow up evaluation regarding bilateral carot id stenosis HISTORY OF PRESENT ILLNESS: Buck Bell is a 74 y.o. male patient who presents fo follow up regarding his bilateral carotid stenosis. [place] [facility] [place] [facility] at the ED at [facility] for headache and neck pain complaint s in 04/2019. 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 Given his recurrent dizziness and previous CTA [...] right carotid bruit ASSESSMENT & PLAN: Mr. eBll is a 74 y.o. male with who [...] Patient understands and is agreeable. Dictation software, SGN (Social Gaming Network), used which may contain error for similar sounding words even af ter review. Personal communication requested for any clarification. Portions of this chart may have been copied from previous notes for continuity of care purp ose Attending Note: Documentation assistance provided by Daljit Solis (Scribe). Information re corded by the scribe has been reviewed and validated by me. I agree with its contents. Signed by: Randy Wolf 11/15/19, 11:11 AM PDT Salvador Jose MD Vascular Surgery documented in this enc ounter Plan of [...] | | | | | [address] [facility] | | | | | | [place] [address] | | | | | | [phone] | | | | | | | | +--------+ + + + + | 03/13/ | Office | Neurology | Veronica, | | | 2019 | Visit | | [address] | | | | | | [address]TH [facility] [place], | | | | | | [place] [address] | | | | | | [phone] | | | | | | | | +--------+ + + + + documented as of this encounter Visit Diagnoses + + | Diagnosis | + + | Carotid stenosis, bilateral - Primary Occlusion and stenosis of multiple and | | bilateral precerebral arteries without mention of cerebral infarction | + + documented in this encounter
--- OUTSIDE RECORDS SUMMARY | ~2019-12-22 | XMS | Encounter Summary ---
Demographics + + + | Address | [address] | | | [place] [address] | + + + | Home Phone | | + + + | Preferred Language | Unknown | + + + | Marital Status | Single | + + + | Pentecostal Affiliation | 1041 | + + + | Race | Unknown | + + + | Ethnic Group | Unknown | + + + Author + + + | Author | [facility] | | | and [place] | + + + | Organization | [facility] | | [...] Team Providers + +------+ + | Care Compressor Station Engineer Name | Role | Phone | + +------+ + | Dominic Carlin MD | PCP | | + +------+ + Encounter Details +--------+ + + + + | Date | Type | Department | Care Team | Description | +--------+ + + + + | 07/11/ | Hospital | [facility] | Wes Melvin MD | | | 2015 | Encounter | MED CTR LABORATORY | [address] | | | | | [address] | [place] [address] | | | | | [place] | [phone] | | | | | [address] | | | | | | [phone] | | | +--------+ + + + [...] | | | | | [place] [address] | | | | | | [phone] | | | | | | | | +--------+ + + + + | 03/13/ | Office | Neurology | Veronica, | | | 2019 | Visit | | [address] | | | | | | [address] [place], | | | | | | [place] [address] | | | | | | [phone] | | | | | | | | +--------+ + + + + documented as of this encounter Visit Diagnoses Not on filedocumented in this encounter"
--- OUTSIDE RECORDS SUMMARY | ~2019-12-22 | XMS | Encounter Summary ---
Demographics + + + | Address | [address] | | | [place] [address] | + + + | Home Phone [...] Author + + + | Author | [facility] | | | and [place] | + + + | Organization | [facility] | | | [...] Team Providers + +------+ + | Care Sewage Disposal Worker Name | Role | Phone | + +------+ + | Dominic Carlin MD | PCP | | + +------+ + Encounter Details +--------+ + + + + | Date | Type | Department | Care Team | Description | +--------+ + + + + | 12/22/ | Orders Only | [facility] | Provider, | | | 2019 | | SYSTEM GENERIC OP | MD [address] | | | | | [address] | [address] | | | | | [address] [place], [place] | [place] [address] | | | | | [address] | | | | | | [phone] | | | +--------+ + + + [...] [place] | | | | | | [place] [address] | | | | | | [phone] | | | | | | | | +--------+ + + + + | 03/13/ | Office | Neurology | Veronica, | | | 2020 | Visit | | [address] | | | | | | [address] [place], | | | | | | [place] [address] | | | | | | [phone] | | | | | | | | +--------+ + + + + documented as of this encounter Visit Diagnoses Not on filedocumented in this encounter"
--- OUTSIDE RECORDS SUMMARY | ~2019-12-22 | XMS | Encounter Summary ---
Demographics + + + | Address | [address] | | | [place] [address] | + + + | Home Phone [...] Team Providers + +------+ + | Care Filler Blender Name | Role | Phone | + +------+ + | Dominic Carlin MD | PCP | | + +------+ + Encounter Details +--------+ + + + + | Date | Type | Department | Care Team | Description | +--------+ + + + + | 07/27/ | Hospital | [facility] | Ernesto Thomas, | | | 2015 | Encounter | MED CTR ACUTE | PT [address] | | | | | PHYSICAL THERAPY | [place] | | | | | [address] | [address] | | | | | [place] [address] | | | | | | [phone] | | | +--------+ + + + [...] | | | | | [address] [facility] | | | | | | [place] [address] | | | | | | [phone] | | | | | | | | +--------+ + + + + | 03/13/ | Office | Neurology | Veronica, | | | 2019 | Visit | | [address] | | | | | | [address] [place], | | | | | | [place] [address] | | | | | | [phone] | | | | | | | | +--------+ + + + + documented as of this encounter Visit Diagnoses Not on filedocumented in this encounter"
--- OUTSIDE RECORDS SUMMARY | ~2019-12-22 | XMS | Encounter Summary ---
Demographics + + + | Address | [address] | | | [place] [address] | + + + | Home Phone [...] + | Organization | [facility] | [...] Team Providers + +------+ + | Care Statistical Engineer Name | Role | Phone | + +------+ + | Dominic Carlin MD | PCP | | + +------+ + Encounter Details +--------+ + + + + | Date | Type | Department | Care Team | Description | +--------+ + + + + | 05/19/ | Imaging | [facility] | Provider, | | | 2020 | Exam | MED CTR EXTERNAL | MD [address] | | | | | IMAGING [address] | [address] | | | | | [address] [place] | [place] [address] | | | | | [place] [address] | | | | | | [phone] | | | +--------+ + + + [...] | | | | | TO[address] [facility] | | | | | | [place] [address] | | | | | | [phone] | | | | | | | | +--------+ + + + + | 03/13/ | Office | Neurology | Veronica, | | | 2019 | Visit | | [address] | | | | | | [address] [place], | | | | | | [place] [address] | | | | | | [phone] | | | | | | | [...] encounter Results MRI Brain wo Contrast (05/16/2013 12:00 AM PST) + + | Specimen | [...]
--- OUTSIDE RECORDS SUMMARY | ~2019-12-22 | XMS | Encounter Summary ---
Demographics + + + | Address | [address] | | | [place] [address] | + + + | Home Phone [...] Team Providers + +------+ + | Care Court Collections Officer Name | Role | Phone | [...] | | [address] | [place] [address] | | | | | [place] | [phone] | | | | | [address] | | | | | | [phone] | | | +--------+ + + + [...] Telephone Encounter - Carlita Pate Master of [employer] - 09/26/2014 8:19 AM PDTCall re turned. Left message for patient stating "He could do self directed PT at home", Per Dr. Nemo juan's instructions. elephone Encounter - Carlita Pate Master of [employer] - 09/25/2014 8:27 A M PDTCall returned. [...] 1 initial consult with physical therapy at [facility] and felt that this sessio n [...] | | | | [address] | | | | | | [facility] [place] [address] | | | | | | [phone] | | | | | | | | +--------+ + + + + | 03/13/ | Office | Neurology | Veronica, | | | 2019 | Visit | | [address] | | | | | | [address] [place], | | | | | | [place] [address] | | | | | | [phone] | | | | | | | | +--------+ + + + + documented as of this encounter Visit Diagnoses Not on filedocumented in this encounter
--- OUTSIDE RECORDS SUMMARY | ~2019-12-22 | XMS | Encounter Summary ---
Demographics + + + | Address | [address] | | | [place] [address] | + + + | Home Phone | | + + + | Preferred Language | Unknown | + + + | Marital Status | Single | + + + | Yarsanism Affiliation | 1041 | + + + [...] Team Providers + +------+ + | Care At Home Independent Call Center Agent Name | Role | Phone | + +------+ + | Dominic Carlin MD | PCP | | + +------+ + Reason for Visit +---------+--------+ + | Reason | Onset | Comments | | | Date | | +---------+--------+ + | Post Op | 08/01/ | update | | | 2015 | | +---------+--------+ + Encounter Details +--------+ + + + + | Date | Type | Department | Care Team | Description | +--------+ + + + + | 08/01/ | Telephone | [facility] [place] | Wes Melvin MD | Post Op (update ) | | 2015 | | NEUROSURGERY [address] | [address] | | | | | [address] | [place] [address] | | | | | [place] | [phone] | | | | | [address] | | | | | | [phone] | | | +--------+ + + + [...] Miscellaneous Notes Telephone Encounter - Edna Mcdermott - 08/01/2014 11:46 AM PDTProcedure: C3-C7 ACDF Date of Surgery: 07/26/14 1. How are you feeling (pain type/often)? He is feeling a little better with each day. 2. If pain, where (Legs/surgical site)? Left shoulder, and neck pain. No trouble breathing , no trouble swallowing, sore throat is getting better with time. 3. Weakness/Numbness (New onset)? Left arm weakness, he can barely lift this arm, he has a history of rotator cuff tear in this shoulder-present prior to surgery. 4.Taking pain meds (Name/Dosage)? Hydrocodone 5/325 mg 1 tab po every 8 hours prn pain, Cyc lobenzaprine 10 mg 1 tab po every 8 hours. No refills requested at this time. 5.Loss of Bowel or Bladder (When/Chronic)? No, loss of bowel/bladder control. His urine i s still a little "reddish". No, complaints of constipation. 6.Ambulating (How often)? He is ambulatory at least every 45 minutes, walking daily around the house. SURGICAL ISSUES 1.What does the dressing look like? Steri-strips are intact. He will gently remove these at 14 days after surgery if they do not fall off by then. 2.Is there drainage from the site? No. 3.Do you have a fever? No. 4.Follow up appointments? 08/23/14 at 11:30 5.What could we have done to make your visit better? Everything was great. 6. Has preoperative pain improved? Yes. documented in this enc ounter Plan of [...] | | | TOY [address] [facility] | | | | | | [place] [address] | | | | | | [phone] | | | | | | | | +--------+ + + + + | 03/13/ | Office | Neurology | Veronica, | | | 2019 | Visit | | [address] | | | | | [address] [place], | | | | | | [place] [address] | | | | | | [phone] | | | | | | | | +--------+ + + + + documented as of this encounter Visit Diagnoses Not on filedocumented in this encounter
--- OUTSIDE RECORDS SUMMARY | ~2019-12-22 | XMS | Encounter Summary ---
Demographics + + + | Address | [address] | | | [place] [address] | + + + | Home Phone | | + + + | Preferred Language | Unknown | + + + | Marital Status | Single | + + + | Protestant Affiliation | 1041 | + + + | Race | Unknown | + + + | Ethnic Group | Unknown | + + + Author + + + | Author | [facility] | | | and [place] | + + + | Organization | [facility] | | | [...] Team Providers + +------+ + | Care Choir Accompanist Name | Role | Phone | + +------+ + PCP | Unavailable | + +------+ + Encounter Details +--------+ + + + + | Date | Type | Department | Care Team | Description | +--------+ + + + + | 06/06/ | Hospital | [facility] | | Sprain rotator cuff | | 2003 | Encounter | [address] | | | [address] | | | | | | [place], [place] | | | | | | [address] | | | | | | [phone] | | | +--------+ + + + [...] | | | | | TOY [address] [facility] | | | | | | [place] [address] | | | | | | [phone] | | | | | | | | +--------+ + + + + | 03/13/ | Office | Neurology | Veronica, | | | 2019 | Visit | | [address] | | | | | [address] [place], | | | | | | [place] [address] | | | | | | [phone] | | | | | | | | +--------+ + + + + documented as of this encounter Visit Diagnoses + + | Diagnosis | + + | Sprain rotator cuff Rotator cuff (capsule) sprain | + + documented in this encounter"
--- OUTSIDE RECORDS SUMMARY | ~2019-12-22 | XMS | Encounter Summary ---
Demographics + + + | Address | [address] | | | [place] [address] | + + + | Home Phone [...] | Organization | [facility] [...] Team Providers + +------+ + | Care Waffle Machine Operator Name | Role | Phone [...] Radiology | Diagnoses | Wes Melvin | Nia Mri | | | | | Back pain | MD [address] | [address] | | | | | Procedures | [address] | [place], | | | | | MRI Lumbar | [place], | [place] | | | | | Spine [place] | [place] [address] | [address] | | | | | Contrast | Phone: | Phone: | | | | | | [phone] | [phone] | | | | | | Fax: | Fax: | | | | | | [phone] | [phone] | +--------+--------+ + + + + Reason [...] | MD [address] | [address] | | | | | Procedures | [address] | [place], | | | | | MRI Lumbar | [place], | [place] | | | | | Spine wo | [place] [address] | [address] | | | | | Contrast | Phone: | Phone: | | | | | | [phone] | [phone] | | | | | | Fax: | Fax: | | | | | | [phone] | [phone] | +--------+--------+ + + + + Encounter Details +--------+ + + + + | Date | Type | Department | Care Team | Description | +--------+ + + + + | 01/30/ | Hospital | [facility] | Wes Melvin MD | Back pain | | 2013 | Encounter | MED CTR MRI [address] | [address] | | | | | [place], | [place] [address] | | | | | [place] [address] | [phone] | | | | | [phone] | | | +--------+ + + + [...] | | | | [address] [facility] | | | | | | [place] [address] | | | | | | [phone] | | | | | | | | +--------+ + + + + | 03/13/ | Office | Neurology | Veronica, | | | 2019 | Visit | | [address] | | | | | [address] [place], | | | | | | [place] [address] | | | | | | [phone] | | | | | | | | +--------+ + + + + documented as of this encounter Procedures + +--------+ + + + | Procedure Name | Priori | Date/Time | Associated Diagnosis | Comments | | | ty | | | | + +--------+ + + + | MRI LUMBAR SPINE WO | Routin | 01/30/2014 | Back pain | Results for this | | CONTRAST | e | 4:20 PM | | procedure are in the [...] + | MISCELLANEOUS LAB | | | [phone] | + +---------+ + + | MISCELANIOUS LAB | | | [phone] | + +---------+ + + documented in this encounter Visit Diagnoses + + | Diagnosis | + + | Back pain Backache, unspecified | + + documented in this encounter"
--- OUTSIDE RECORDS SUMMARY | ~2019-12-22 | XMS | Encounter Summary ---
Demographics + + + | Address | [address] | | | [place] [address] | + + + | Home Phone [...] Providers + +------+ + | Care Assistant Kitchen Manager Name | Role | Phone | + +------+ + | Dominic Carlin MD | PCP | | + +------+ + Reason for Visit +--------+--------+ + | Reason | Onset | Comments | | | Date | | +--------+--------+ + | Other | 01/30/ | | | | 2013 | | +--------+--------+ + Encounter Details +--------+ [...] | | [address] | [place] [address] | | | | | [place] | [phone] | | | | | [address] | | | | | | [phone] | | | +--------+ + + + [...] Notes Telephone Encounter - Edna Mcdermott - 02/21/2014 2:15 PM PDTMark is advised per Dr. Ramírez son. He verbalized understanding. He is also advised that his insurance company denied coverage of the C6-7 level which reque sted by Dr. Melvin. He would like to work through the appeals process. Kalani Kelley Is updated at t his time. elephone Natalia harris - Milla Brooks - 02/21/2014 11:08 AM PDTPatient returned phone callChloé merlos signed by Milla Brooks at 02/21/2014 11:09 AM PDTTelephone Encounter - Baldemar Fidelina jorge Nuris - 02/20/2014 1:17 PM PDTSecond message left for patient. Requested callback.Electro nically signed by Edna Mcdermott at 02/20/2014 1:17 PM PDTTelephone Encounter - Edna Mcdermott - 02/19/2014 3:05 PM PDTLeft a message for Buck. Requested callback.Electronica lly signed by Edna Mcdermott at 02/19/2014 3:05 PM PDTTelephone Encounter - Wes Melvin MD - 02/19/2014 9:37 AM PDTStill planning a C3-7 ACDF. Wes Melvin elephone Encounter - St laresEdna - 01/30/2014 5:02 PM PDTPlease review for surgical planning. Procedure cur rently planned is a C3-C7 ACDF. 5:0 2 PM PDTTelephone Encounter - Milla Brooks - 01/30/2014 4:43 PM PDTPatient stopped b y office to let us know that he completed his MRI's at [facility] on 01/30/14Electronically s igned by Milla Brooks at 01/30/2014 4:44 PM PDTdocumented in this encounter Plan of Treatment +--------+ + + + + | Date | Type | Specialty | Care Team | Description | +--------+ + + + + | 08/12/ | Appointment | Radiology | | | | 2019 | | | | | +--------+ + + + + | 12/26/ | Office | Vascular Surgery | Salvador Jose MD | | | 2019 | Visit | | [address] | | | | | | [address] | | | | | | [place] [address] | | | | | | [phone] | | | | | | | | +--------+ + + + + | 03/13/ | Office | Neurology | Veronica, | | | 2019 | Visit | | [address] | | | | | [address] [place], | | | | | | [place] [address] | | | | | | [phone] | | | | | | | | +--------+ + + + + documented as of this encounter Visit Diagnoses Not on filedocumented in this encounter"
--- OUTSIDE RECORDS SUMMARY | ~2019-12-22 | XMS | Encounter Summary ---
Demographics + + + | Address | [address] | | | [place] [address] | + + + | Home Phone | | + + + | Preferred Language | Unknown | + + + | Marital Status | Single | + + + | Worship Affiliation | Unknown | + + + | Race | or | + + + | Ethnic Group | Not or | + + + Author + + + | Author | [facility] | + + + | Organization | [facility] | + + + | Address | Unknown | + + + | Phone | Unavailable | + + + Support + + +---------+ + | Name | Relationship | Address | Phone | + + +---------+ + | Gautam Ray | ECON | Unknown | | + + +---------+ + Care Team Providers + +------+ + | Care Hearing Impaired Itinerant Teacher Name | Role | Phone | + +------+ + PCP | Unavailable | + +------+ + Reason for Visit + + + | Reason | Comments | + + + | EMG - | | | Electromyography | | + + + Consultation (Routine) [...] | | | | | | [place], | | | | | | | [place] | | | | | | | [address] | | | | | | | Phone: | | | | | | | [phone] | | | | | | | Fax: | | | | | | | [phone] | +--------+--------+ + + + + Encounter Details +--------+ + + + + | Date | Type | Department | Care Team | Description | +--------+ + + + + | 04/17/ | Procedure | Orthopedics Rehab | Oscar Mcclellan MD | EMG - | | 2007 | | and Phys Med at | [address] | Electromyography | | | | [place] [facility] | [place], | | | | | and Healing [address] | [place] [address] | | | | | [facility] | [phone] | | | | | Health and Healing, | | | | | | [facility] | | | | | | [place], [place] | | | | | | [address] | | | | | | [phone] | | | +--------+ + + + [...] + documented as of this encounter Progress Oscar Saleem - 04/17/2008 7:31 AM PST Buck Bell is a 63 y.o. 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 Electrodiagnostic st udies have been performed today. The data and waveforms have been scanned into [employer]. The summary is as follows: Motor Nerve Conduction Studies: The left median response has a prolonged latency. The left ulnar response has a decreased conduction velocity around the elbow. Sensory Nerve Conduction Studies: The left median response has a prolonged latency. The left ulnar response has a decreased conduction velocity. The left radial response is normal. Mixed Nerve Conduction Studies: The left median mixed palmar response are prolonged. The left ulnar mixed palmar response are normal. Late Responses: The left median F-waves are are normal. The left ulnar F-waves are are normal. Needle Electromyography: There is increased insertional activity in the left deltoid and cervical paraspinal muscles . Abnormal motor unit action potentials are found in the left abductor pollicis brevis, first dorsal interosseous, pronator teres, biceps, triceps, deltoid and supraspinatus. Normal motor unit action potential morphology/activation and recruitment is found in the le ft flexor carpi ulnaris. Impression: This is an abnormal and complex study. [...] abnormalities seen in the left C5/6 myotomes. documented in this encounte r Plan of Treatment + + +--------+ + + | Name | Type | Priori | Associated Diagnoses | Order Schedule | | | | ty | | | + + +--------+ + + | IA MUSCLE TEST, ONE | Procedures | Routin | Carpal Tunnel | Ordered: 04/17/2008 | | LIMB | | e | Syndrome Ulnar | | | | | | Neuritis Cervical | | | | | | Radiculitis | | + + +--------+ + + | IA MOTOR NERVE | Procedures | Routin | Carpal Tunnel | Ordered: 04/17/2008 | | CONDUCT TEST, W | | e | Syndrome Ulnar | | | F-WAVE | | | Neuritis Cervical | | | | | | Radiculitis | | + + +--------+ + + | IA NERVE | Procedures | Routin | Carpal Tunnel | Ordered: 04/17/2008 | | CONDUCTION,EA | | e | Syndrome Ulnar | | | NERVE,MOTOR,SENSORY | | | Neuritis Cervical | | | | | | Radiculitis | | + + +--------+ + + documented as of this encounter Visit Diagnoses + + | Diagnosis | + + | Carpal tunnel syndrome | + + | Ulnar neuritis Brachial neuritis or radiculitis nos | + + | Cervical radiculitis Brachial neuritis or radiculitis nos | + + documented in this encounter"
--- OUTSIDE RECORDS SUMMARY | ~2019-12-22 | XMS | Encounter Summary ---
Demographics + + + | Address | [address] | | | [place] [address] | + + + | Home Phone | | + + + | Preferred Language | Unknown | + + + | Marital Status | Single | + + + | Amish Affiliation | [id number] | + + + | Race | Unknown | + + + | Ethnic Group | Unknown | + + + Author + + + | Author | [facility] | | | and [place] | + + + | Organization | [facility] | | | [...] Team Providers + +------+ + | Care Explosive Operator Grenade Name | Role | Phone | + +------+ + | Sydney Lennon | PCP | | + +------+ + Reason for Visit + +--------+ + | Reason | Onset | Comments | | | Date | | + +--------+ + | Paperwork | 10/29/ | | | | 2020 | | + +--------+ + Encounter Details +--------+ + + + + | Date | Type | Department | Care Team | Description | +--------+ + + + + | 10/29/ | Telephone | [facility] | Salvador Jose MD | Paperwork | | 2019 | | VASCULAR SURGERY | [address] | | | | | [address] | [address] | | | | | [place], [place] | [place] [address] | | | | | [address] | [phone] | | | | | [phone] | | | +--------+ + + + [...] this encounter Miscellaneous Notes Telephone Encounter - Ulysses Anay Munoz - 10/30/2019 9:38 AM PDTAlicijose, is calling salma nicholas Paperge[employer]ani and would like a call back. Additional Call Details: Requesting call back to confirm provider has received all of the medical records they faxed over and to make sure provider has access to the CT that was sent as well. Please contact [phone] If this is a symptom based call, was patient offered triage? Not Applicable If this is a symptom based call and you were unable to immediately transfer the call to a brandon jane water safety instructor was caller made aware that if at [...] | | | | | [address] [facility] | | | | | | [place] [address] | | | | | | [phone] | | | | | | | | +--------+ + + + + | 03/13/ | Office | Neurology | Veronica, | | | 2019 | Visit | | [address] | | | | | | [address] [place], | | | | | | [place] [address] | | | | | | [phone] | | | | | | | | +--------+ + + + + documented as of this encounter Visit Diagnoses Not on filedocumented in this encounter"
--- OUTSIDE RECORDS SUMMARY | ~2019-12-22 | XMS | Encounter Summary ---
Demographics + + + | Address | [address] | | | [place] [address] | + + + | Home Phone [...] + + + | Author | [facility] | | | and [place] | + + + | Organization | [facility] | | | [...] Team Providers + +------+ + | Care Liability Claims Representative Name | Role | Phone | + +------+ + | Dominic Carlin MD | PCP | | + +------+ + Encounter Details +--------+ + + + + | Date | Type | Department | Care Team | Description | +--------+ + + + + | 12/22/ | Orders Only | [facility] | Provider, | | | 2019 | | SYSTEM GENERIC OP | MD [address] | | | | | [address] | [address] | | | | | [address] [place], [place] | [place] [address] | | | | | [address] | | | | | | [phone] | | | +--------+ + + + [...] | | | | | [place] [address] | | | | | | [phone] | | | | | | | | +--------+ + + + + | 03/13/ | Office | Neurology | Veronica, | | | 2020 | Visit | | [address] | | | | [address] [place], | | | | | | [place] [address] | | | | | | [phone] | | | | | | | | +--------+ + + + + documented as of this encounter Visit Diagnoses Not on filedocumented in this encounter"
--- OUTSIDE RECORDS SUMMARY | ~2019-12-22 | XMS | Encounter Summary ---
Demographics + + + | Address | [address] | | | [place] [address] | + + + | Home Phone | | + + + | Preferred Language | Unknown | + + + | Marital Status | Single | + + + | Pentecostal Affiliation | 1041 | + + + | Race | Unknown | + + + | Ethnic Group | Unknown | + + + Author + + + | Author | [facility] | | | and [place] | + + + | Organization | [facility] | | [...] Team Providers + +------+ + | Care Sort Line Name | Role | Phone | + +------+ + PCP | Unavailable | + +------+ + Encounter Details +--------+ + + + + | Date | Type | Department | Care Team | Description | +--------+ + + + + | 05/16/ | Hospital | [facility] | Conversion | DDD (degenerative | | 2012 | Encounter | [facility] | Transaction, | disc disease); | | | | [address] | Provider Unknown | Neuralgia; Chronic | | | | [place] | [phone] | ischemic right MCA | | | | [address] | (Fax) | stroke | | | | [phone] | | | +--------+ + + + [...] | | | | | [address] [facility] | | | | | | [place] [address] | | | | | | [phone] | | | | | | | | +--------+ + + + + | 03/13/ | Office | Neurology | Veronica, | | | 2019 | Visit | | [address] | | | | | [address] [place], | | | | | | [place] [address] | | | | | | [phone] | | | | | | | | +--------+ + + + + documented as of this encounter Procedures + +--------+ + + + | Procedure Name | Priori | Date/Time | Associated Diagnosis | Comments | | | ty | | | | + +--------+ + + + | MRI CERVICAL SPINE | Routin | 05/16/2013 | | Results for this | | WO CONTRAST | e | 2:28 PM | | procedure are in the | | | | PST | | results section. | + +--------+ + + + documented in this encounter Results MRI Cervical Spine wo Contrast (05/16/2013 2:28 PM PST) + + | Specimen | + + | | + + + + + | Impressions | Performed At | + + + | 1. There is extensive severe multilevel degenerative disc disease | | | of the cervical spine without evidence of acute cervical spine | | | fracture or ligamentous injury. 2. There is critical severe spinal | | | stenosis at C4-5 with abnormal signal centrally in the cord. This may | | | reflect some gliosis secondary to chronic severe stenosis versus prior | | | traumatic injury. 3. There is potential impingement of the | | | bilateral C4, C5, C6 and C7 nerve root due to neural foraminal | | | stenosis as discussed above. | | + + + + + + | Narrative | Performed At | + + + | [facility] 1945 MRI CERVICAL SPINE WO CONTRAST | | | 05/16/2013 2:28 PM HISTORY: Degenerative disc disease with | | | bilateral radiculopathy and neck pain COMPARISON: MRI, 08/15/2004 | | | TECHNIQUE: Imaging was performed on a 1.5 Shireen MRI system. | | | Multiplanar sequences according to a standard department protocol | | | were acquired without contrast. FINDINGS: The pituitary gland is | | | normal in appearance. No tonsillar herniation is present. The volume | | | and signal intensity of the cervical cord is normal. Multilevel | | | degenerative disc disease of the cervical spine is present. There is | | | moderate disc space narrowing at C4-5. There is severe disc space | | | narrowing at C7-T1. There appears to be hyperintense T2 signal noted | | | in the cervical cord on image 6 series 2 at C4-5. This appears fairly | | | focal with no mass effect. Findings by level: C2-3: The left | | | neural foramen appears moderately narrowed from uncovertebral and | | | facet arthropathy. No significant right-sided neural foraminal | | | narrowing is present. There is mild spinal stenosis. C3-4: | | | Ligamentum flavum thickening and a disc osteophyte complex combine to | | | result in severe spinal stenosis and mild flattening of the cervical | | | cord. The neural foramen are completely effaced which is suggestive of | | | severe bilateral neural foraminal stenosis and potential | | | impingement of the exiting bilateral C4 nerve root. C4-5: There is | | | severe spinal stenosis at this level. There is mild patchy central | | | hyperintense T2 signal in the cervical cord on image 33 series 100. | | | Increased T2 signal is paracentral bilaterally and within the deep | | | central aspect of the cord. The location suggests injury to the cabello | | | matter. The cervical cord is compressed due to a disc osteophyte | | | complex and ligamentum flavum thickening. The neural foramen are | | | severely narrowed which may result in impingement of the bilateral C5 | | | nerve root. C5-6: There is moderate spinal stenosis and a disc | | | osteophyte complex. There is mass effect on the anterior margin of the | | | cord. The neural foramen are severely narrowed bilaterally from | | | uncovertebral arthropathy. There is potential impingement of the | | | bilateral C6 nerve root. C6-7: Mild spinal stenosis is present | | | from a disc osteophyte complex. The neural foramen are severely | | | stenotic from uncovertebral arthropathy with potential impingement of | | | the bilateral C7 nerve root. C7-T1: There is moderate bilateral | | | neural foraminal stenosis from uncovertebral arthropathy. There is | | | minimal narrowing of the anterior spinal canal from a disc osteophyte | | | complex. There is severe right neural foraminal narrowing at T1-2 | | | which may result in impingement of the right T1 nerve root. There is | | | no significant spinal stenosis throughout the visualized thoracic | | | spine. There is no cervical adenopathy. | | + + + + + | Procedure Note | + + | [place], Rad Conversion - 01/06/2019 7:45 PM PDT [facility]1944MRI CERVICAL | | SPINE WO [id number]/31/2013 2:28 PM HISTORY: Degenerative disc disease with bilateral | | radiculopathy and neck pain COMPARISON: MRI, 08/15/2004 TECHNIQUE:Imaging was performed on | | a 1.5 Shireen MRI system. Multiplanar sequences according to a standard department | | protocol were acquired without contrast. FINDINGS: The pituitary gland is normal in | | appearance. No tonsillar herniation is present. The volume and signal intensity of the | | cervical cord is normal. Multilevel degenerative disc disease of the cervical spine is | | present. There is moderate disc space narrowing at C4-5. There is severe disc space | | narrowing at C7-T1. There appears to be hyperintense T2 signal noted in the cervical | | cord on image 6 series 2 at C4-5. This appears fairly focal with no mass effect. | | Findings by level: C2-3: The left neural foramen appears moderately narrowed from | | uncovertebral and facet arthropathy. No significant right-sided neural foraminal | | narrowing is present. There is mild spinal stenosis. C3-4: Ligamentum flavum thickening | | and a disc osteophyte complex combine to result in severe spinal stenosis and mild | | flattening of the cervical cord. The neural foramen are completely effaced which is | | suggestive of severe bilateral neural foraminal stenosis and potential impingement of | | the exiting bilateral C4 nerve root. C4-5: There is severe spinal stenosis at this | | level. There is mild patchy central hyperintense T2 signal in the cervical cord on image | | 33 series 100. Increased T2 signal is paracentral bilaterally and within the deep | | central aspect of the cord. The location suggests injury to the cabello matter. The | | cervical cord is compressed due to a disc osteophyte complex and ligamentum flavum | | thickening. The neural foramen are severely narrowed which may result in impingement of | | the bilateral C5 nerve root. C5-6: There is moderate spinal stenosis and a disc | | osteophyte complex. There is mass effect on the anterior margin of the cord. The neural | | foramen are severely narrowed bilaterally from uncovertebral arthropathy. There is | | potential impingement of the bilateral C6 nerve root. C6-7: Mild spinal stenosis is | | present from a disc osteophyte complex. The neural foramen are severely stenotic from | | uncovertebral arthropathy with potential impingement of the bilateral C7 nerve root. | | C7-T1: There is moderate bilateral neural foraminal stenosis from uncovertebral | | arthropathy. There is minimal narrowing of the anterior spinal canal from a disc | | osteophyte complex. There is severe right neural foraminal narrowing at T1-2 which may | | result in impingement of the right T1 nerve root. There is no significant spinal | | stenosis throughout the visualized thoracic spine. There is no cervical adenopathy. | | IMPRESSION: 1. There is extensive severe multilevel degenerative disc disease of the | | cervical spine without evidence of acute cervical spine fracture or ligamentous | | injury.2. There is critical severe spinal stenosis at C4-5 with abnormal signal | | centrally in the cord. This may reflect some gliosis secondary to chronic severe | | stenosis versus prior traumatic injury.3. There is potential impingement of the | | bilateral C4, C5, C6 and C7 nerve root due to neural foraminal stenosis as discussed | | above. | | | + + documented in this encounter Visit Diagnoses + + | Diagnosis | + + | DDD (degenerative disc disease) Degeneration of intervertebral disc, site unspecified | + + | Neuralgia Neuralgia, neuritis, and radiculitis, unspecified | + + | Chronic ischemic right MCA stroke Transient ischemic attack (TIA), and cerebral | | infarction without residual deficits | + + documented in this encounter"
--- OUTSIDE RECORDS SUMMARY | ~2019-12-22 | XMS | Encounter Summary ---
Demographics + + + | Address | [address] | | | [place] [address] | + + + | Home Phone [...] Team Providers + +------+ + | Care Sales Representative Publications Name | Role | Phone | + [...] [address] [place] | | | | | [place], [place] | [address] | | | | | [address] | | | | | | [phone] | | | +--------+ + + + [...] [address] | | | | | | [address] | | | | | | [place] [address] | | | | | | [phone] | | | | | | | | +--------+ + + + + | 03/13/ | Office | Neurology | Veronica, | | | 2019 | Visit | | [address] | | | | [address] [place], | | | | | | [place] [address] | | | | | | [phone] | | | | | | | [...] Postop. COMPARISON: 07/26/2014. FINDINGS: Visualized skull | [facility] | | base and facial structures [...] + + | Performing | Address | City/State[facility] | Phone Number | | Organization | | | | + + + + + | [facility] | [address] | [place], [place] | [phone] | | [facility] | | [address] | | | - IMAGING | | | | + + + + + documented in this encounter Visit Diagnoses + + | Diagnosis | + + | S/P cervical spinal fusion - Primary Arthrodesis status | + + documented in this encounter"
--- OUTSIDE RECORDS SUMMARY | ~2019-12-22 | XMS | Encounter Summary ---
Demographics + + + | Address | [address] | | | [place] [address] | + + + | Home Phone [...] Team Providers + +------+ + | Care Liner Worker Name | Role | Phone | + +------+ + | Dominic Carlin MD | PCP | | + +------+ + Reason for Visit + +--------+ + | Reason | Onset | Comments | | | Date | | + +--------+ + | Neck Stiffness | 02/13/ | | | | 2015 | | + +--------+ + | Dizziness | 02/13/ | | | | 2015 | | + +--------+ + Encounter Details [...] | | [address] | [place] [address] | | | | | [place] | [phone] | | | | | [address] | | | | | | [phone] | | | +--------+ + + + [...] Notes Telephone Encounter - Edna Mcdermott - 02/18/2016 12:45 PM PDTPost-op patient: Yes". Type of Procedure: C3-7 ACDF Date of Procedure: 07/26/14 Next Office Visit: N/A Reason for call: He has been having a stiff neck, and feeling of dizziness-symptoms present for about the past year. He's been advised by his PCP that the dizziness is probably heredi tary. He doesn't feel that anything is wrong with the muscles in his neck feeling stiff but wanted to let Dr. Melvin know just in case. Does not interrupt his sleep, he "just takes it e asy, doesn't turn his head too fast". Advised patient to speak to their PCP for further work-up as patient had not been treated b y our physicians for this diagnosis. Patient verbalized understanding. elephone Encounter - Lacy Blanco - 02/18/2016 9:52 AM PDTPatient returned Edna's call. (Cell phone remove d, please call home phone.) TTelephone Encounter - Edna Mcdermott - 02/17/2016 1:18 PM PDT2nd message left for Buck requesting a callback. Cellphone on file is an incorrect number. elephone Encounter - Edna Mcdermott - 2015 12:56 PM PDTCall returned. Left a voicemail requesting callback. elephone Encounter - Tyler Beth - 02/14/2016 10:22 AM PDTPatient called, he had surgery on his neck last ye and was last seen in Mar 2015. He has stiffness in his neck, he states it's not major but enough for him to be concerned about it. He would like to see Dr. Melvin for a follow up. Plea return call. documente d in this encounter Plan of Treatment +--------+ [...] | | | | | | [address] | | | | | | [place] [address] | | | | | | [phone] | | | | | | | | +--------+ + + + + | 03/13/ | Office | Neurology | Veronica, | | | 2019 | Visit | | [address] | | [address] [place], | | | | | | [place] [address] | | | | | | [phone] | | | | | | | | +--------+ + + + + documented as of this encounter Visit Diagnoses Not on filedocumented in this encounter
--- OUTSIDE RECORDS SUMMARY | ~2019-12-22 | XMS | Encounter Summary ---
Demographics + + + | Address | [address] | | | [place] [address] | + + + | Home Phone | | + + + | Preferred Language | Unknown | + + + | Marital Status | Single | + + + | Yazidism Affiliation | Unknown | + + + | Race | or | + + + | Ethnic Group | Not or | + + + Author + + + | Author | [facility] | + + + | Organization | [facility] | + + + | Address | Unknown | + + + | Phone | Unavailable | + + + Support + + +---------+ + | Name | Relationship | Address | Phone | + + +---------+ + | Gautam Ray | ECON | Unknown | | + + +---------+ + Care Team Providers + +------+ + | Care Information Security Architect Name | Role | Phone | [...] | | | | | | | [address] [place], | | | | | | | [place] | | | | | | | [address] | | | | | | | Phone: | | | | | | | [phone] | | | | | | | Fax: | | | | | | | [phone] | +--------+--------+ + + + + Encounter Details +--------+---------+ + + + | Date | Type | Department | Care Team | Description | +--------+---------+ + + + | 06/14/ | Office | Orthopaedics | Jaswant Angeles MD | Unspecified | | 2008 | Visit | Faculty at Center | [address] | Disorders of Bursae | | | | for Health and | [address] | and Tendons in | | | | Healing [address] | [place], [place] | Shoulder [place]; | | | | [facility] | [address] | Radicular Syndrome | | | | Health and He[facility], | [phone] | of [place] | | | | [facility] | | | | | | Floor [place], [place] | | | | | | [address] | | | | | | [phone] | | | +--------+---------+ + + + [...] to see him back in concert wi th or following Dr Cueva. An MRI of [...]
--- OUTSIDE RECORDS SUMMARY | ~2019-12-22 | XMS | Encounter Summary ---
Demographics + + + | Address | [address] | | | [place] [address] | + + + | Home Phone | | + + + | Preferred Language | Unknown | + + + | Marital Status | Single | + + + | Mosque Affiliation | [id number] | + + + [...] Team Providers + +------+ + | Care Assembler Molded Frames Name | Role | Phone | + [...] + + | 07/26/ | [facility] | [facility] | Wes Weber MD | C3-4, C4-5, C5-6, | | 2014 | | MED CTR OR INTRA OP | [address] | C6-7 Anterior | | | | [address] | [place] [address] | Cervical Discectomy | | | | NARCISO Tee | [phone] | Fusion | | | | [address] | | | | | | [phone] | | | +--------+---------+ + + + [...] might be differen t from the original. [facility] NEUROSURGERY DISCHARGE SUMMARY Patient Name: Buck [...] Care Everywhere.CERVICAL FUSION , DISCHARGE INSTRUCTIONS FOR (LAO)documented in this encounter Medications at Time of [...] Yesica Sol RN at 07/26/2014 10:34 PM PDTFetrYesica call RN - 07/26/2014 6:00 PM PDTAssisted pt [...] for the pt. documented in this encounter H&P Notes Wes Weber MD - 07/26/2014 9:45 AM PDT[facility] INTERIM HISTORY AND PHYSICAL UPDATE Pt. Name/Age/: Buck Bell 69 y.o. 1945 Date of admission: 07/26/2014 The current H&P was reviewed. The patient was reexamined. Re-evaluation of the patient con firms the necessity for the scheduled procedure. No change has occurred in the patient s c ondition since the H&P was completed less than 30 days ago. I expect this patient will be hospitalized for post-operative care of post-operative care o f an IP-only procedure and expect the post-hospital plan to be determined once additional in formation is obtained. Electronically signed by: Wes Weber MD 07/26/2014 9:45 [facility] Haroldo Bee PA - 07/11/2014 9:18 AM PST GINO Ponce [address], [address] [place] [address] FAX: NEUROSURGERY HISTORY AND PHYSICAL EXAMINATION CHIEF [...] has no apparent deficits with short or moth exterminator memory. CRANIAL NERVES: II: Acuity is intact. [...] Intrinsics 5 4 Ulnar Intrinsics 5 4 Route Sales Associate Strength 5 4 Hip Flexion 4 4 [...] disease with cord compression and cord changes. T juliet we discussed C3-C7 cervical fusion. We discussed [...] 07/11/2014 9:18 documented in th is encounter Miscellaneous Notes Plan of Care - Karina Humphreys RN - 07/27/2014 9:48 PM PDTProblem: General Plan of Care (Adult, Obstetrics) Goal: Care Plan Shift Summary & Review . Pt has B collar, c/o ue numbness and tingling to hand b/l , pt states that it is better the n prior to surgery, amb w/ FWW, pt states that he has a walker at home, he was encouraged to use it for stability, pt agrees., clearing throat, LEXA d/c prior to discharge. lan of Care - Gabriela Benitez, OT - 07/27/2014 11:51 AM PDTProblem: General Plan of Care (Adult, Obste trics) Goal: Care Plan Shift Summary & Review . Occupational Therapy Plan of Care Initial Evaluation, Treatment Note Summary: Pt. log rolled OOB with no (A). Donns "B" C[place]a collar but needs help to tighten it and position it properly. Pt. able to walk to sink, wash up, dress and take a walk. Wh en he returned, he stood and urinated over the toilet with no (A). Pt. was able to then wa sh hands, and walked to chair, sat down, and called his ride to come pick him up. Pt. had n o c/o pain and was appreciative of the session. Occupational Therapy will follow Buck Bell 1 time eval. And treat. Occupational Therapy Discharge Recommendations are: Recommended discharge disposition: home with family/caregiver Post discharge occupational therapy recommendation: pt is motivated participant, family in volved/supportive, no further OT Equipment Recommendations: Shower chair. Identified Problems Needing Skilled Intervention: OT for post-op teaching prior to discha rge for ed. On Caneadea collar and precautions. Planned Interventions:Planned Therapy Interventions: ADL retraining, orthotic fitting/train ing, transfer training Patient Status/Goals Reflects last filed data of patient status; may be from multiple contributors. Basic ADLs Instrumental ADLs Activity Tolerance Cognitive Linguistics Cognitive Tests Bed Mobility Bed Mobility Skill: Rolling/Turning, PT Eval Level Of Jennings: independent Bed Mobility Skill: Sit To Supine, Rehab Eval Level Of Jennings: Sit/Supine: independent Bed Mobility Skill: Supine To Sit, Rehab Eval Level Of Jennings: Supine/Sit: independent Transfers Transfer Skill: Bed To Chair/Chair To Bed, Rehab Eval Type of Transfer: step pivot Level Of Jennings: Bed To Chair: modified independent Physical Assist/Nonphysical Assist: Bed To Chair: (.) Assistive Device: 2 wheeled walker Goal Transfers Bed to Chair/Chair to Bed Bed to Chair/Chair to Bed STG Status: Met STG Transfers Bed to Chair/Chair to Bed: modified independent Transfer Skill: Sit To Stand, Rehab Eval Level Of Jennings: Sit/Stand: modified independent Physical Assist/Nonphysical Assist: Sit/Stand: (.) Assistive Device For Transfer: Sit/Stand: 2 wheeled walker Goal Transfers Sit to Stand Sit to Stand STG Status: Met STG Transfers Sit to Stand : modified independent Transfer Skill: Stand To Sit, Rehab Eval Level Of Jennings: Stand/Sit: modified independent Physical Assist/Nonphysical Assist: Stand/Sit: (.) Assistive Device For Transfer: Stand/Sit: 2 wheeled walker Goal Transfers Stand to Sit Stand to Sit STG Status: Met STG Transfers Stand to Sit: modified independent Transfer Safety Analysis, Rehab Eval Transfer Safety Concerns Noted: decreased balance during turns, decreased proprioception Impaired Transfers: impaired balance Wheelchair Mobility Balance ROM Range Of Motion Examination: bilateral upper extremity ROM was WFL, deficits as listed belo w Strength Gross strength R UE: (3-/5) fair minus, right Gross strength L UE: (3-/5) fair minus, left Additional Goals lan of Care - Joshua chapa LICSW - 07/27/2014 11:04 AM PDTProblem: General Plan of Care (Adult, Obs tetrics) Goal: Care Plan Shift Summary & Review . Outcome: Progressing This lining caser visited with this patient who had cervical surgery regarding discharge ne edss. The patient did not feel that he would have any DC needs. He has access to medical eq uipment if needed and has two brothers who live close who can help if needed.Electronically signed by: DEDRICK Harrell 07/27/2014 11:04 lan of Giovana Kellogg PT - 07/27/2014 11:00 AM PDTPhysical Therapy Discharge Note Patient Information Patient Name: Buck Bell Date of : 1945 Age: 69 y.o. Precaution/special problems: Precautions/Limitations: fall precautions, spinal precautions L UE weight-bearing Status: R UE weight-bearing Status: L LE weight-bearing Status: LLE Weight-Bearing Status: full weight-bearing R LE weight-bearing Status: RLE Weight-Bearing Status: full weight-bearing Start Time: 1040 Stop time: 1050 Time Calculation: 10 minutes Missed Treatment Time: minutes Total Treatment Time: 10 minutes TimedTreatment Code Minutes: 10 minutes Subjective: Pt indicates he is eager for home discharge and feeling much more confident in ability to don/doff collar Objective: Treatment Provided: Discussed spinal precautions w/ pt able to verbalize w/o difficulty. P t currently able to don/doff collar independently although occasionally having difficulty ge tting it tight enough. Indep w/ bed mob. Mod I w/ transfers and gait w/ use of FWW. Negot iating stairs at Mod I. Education: Reviewed spinal precautions and don/doff tech w/ collar. Patient Status/Goals: Reflects last filed data of patient status; may be from multiple contributors. Bed Mobility Bed Mobility Skill: Rolling/Turning, PT Eval Level Of Jennings: independent Bed Mobility Skill: Sit To Supine, Rehab Eval Level Of Jennings: Sit/Supine: independent Bed Mobility Skill: Supine To Sit, Rehab Eval Level Of Jennings: Supine/Sit: independent Transfers Transfer Skill: Bed To Chair/Chair To Bed, Rehab Eval Type of Transfer: step pivot Level Of Jennings: Bed To Chair: modified independent Physical Assist/Nonphysical Assist: Bed To Chair: (.) Assistive Device: 2 wheeled walker Goal Transfers Bed to Chair/Chair to Bed Bed to Chair/Chair to Bed STG Status: Met STG Transfers Bed to Chair/Chair to Bed: modified independent Transfer Skill: Sit To Stand, Rehab Eval Level Of Jennings: Sit/Stand: modified independent Physical Assist/Nonphysical Assist: Sit/Stand: (.) Assistive Device For Transfer: Sit/Stand: 2 wheeled walker Goal Transfers Sit to Stand Sit to Stand STG Status: Met STG Transfers Sit to Stand : modified independent Transfer Skill: Stand To Sit, Rehab Eval Level Of Jennings: Stand/Sit: modified independent Physical Assist/Nonphysical Assist: Stand/Sit: (.) Assistive Device For Transfer: Stand/Sit: 2 wheeled walker Goal Transfers Stand to Sit Stand to Sit STG Status: Met STG Transfers Stand to Sit: modified independent Transfer Safety Analysis, Rehab Eval Transfer Safety Concerns Noted: decreased balance during turns, decreased proprioception Impaired Transfers: impaired balance Gait Gait Skills, PT Eval Level Of Jennings: Gait: modified independent Physical Assist/Nonphysical Assist: Gait: (.) Assistive Device For Transfer: Gait: 2 wheeled walker Gait Distance: 300 feet Goal Gait Gait STG Status: Met STG Gait: modified independent STG Gait Device: 2 wheeled walker STG Gait Distance: 300 feet Stairs Stair, Performance Number Of Stairs: 4 Stair Railings: present on both sides Level Of Jennings: modified independent Physical Assist/Nonphysical Assist: verbal cues Assistive Device: 2 railings Stair Management Technique: alternating pattern, two rails Safety Impairments: impaired balance, impaired sensory feedback Goal Stairs Stairs STG Status: Met STG Number of Stairs: 4 STG Stairs: modified independent STG Stairs Device: 2 railings ROM BLE's grossly WFL Strength Manual Muscle Testing (MMT) Gross strength R LE: 4+/5 good plus, right Gross strength L LE: 4+/5 good plus, left Additional Goals PT Status 1: Met PT Goal 1: Pt will be independent donning/doffing collar To promote: Safe discharge home with family/caregiver PT Status 2: Met PT Goal 2: Pt will be indep w/ all post op precautions To promote: Safe discharge home with family/caregiver FIM: Bed/Chair/Wheelchair: 6 Bed/Chair/WC Score Evidence: 6 Extra Time Walk: 6 Distance Walked (feet): 300 feet Walk Score Evidence: 6 Whl Walker/150 ft+ Stairs: 5 Stairs Score Evidence: 5 Ind 4-6 Stairs Home Assessment: Pt demonstrating functional mobility and gait at a level which is appropriate f or safe home discharge. No further acute PT services indicated at this time. Recommend con t OP PT once cleared by MD in approx 4wks. Physical Therapy Discharge Recommendations are: Recommended discharge disposition: Home w/ family as needed Post discharge physical therapy recommendation: OP PT in 4wks Plan for next treatment: Discharge Electronically signed by: Giovana Thomas, PT, 07/27/2014 11:01 lan of Estefania Elder RN - 07/27/2014 4:35 AM PDTProblem: General Plan of Care (Adult, Obste trics) Goal: Care Plan Shift Summary & Review . Outcome: Progressing Pt has been sleeping well. Dressing CDI. Lexa cont to put out moderate amts of drainage. lan of Lan Reed, BISQUE CLEANER - 07/27/2014 4:29 AM PDTThe patient is SpO2: 96 % on room air and is clear and diminished throughout. He has a regular rate and rhythm. He does well with his IS getting 1700 out of 2200. He did not require additional respiratory care throughout the night. lan of John Scott RRT - 07/26/2014 11:43 PM PDTSpO2 96 % on room air . Patient achieving 1700 of Predicted Level (mL)(Incentive Spirometer): 2200 lan of Giovana Renee, PT - 07/26/2014 7:03 PM PDTFormatting of this note might be different from the or iginal. Physical Therapy Acute Initial Evaluation Note Patient Information Patient Name: Buck Bell Date of : 1945 Age: 69 y.o. History No diagnosis found. Date of Onset: 07/26/14 Referring Physician: Dr. Weber Past Medical History Diagnosis Date High blood pressure High cholesterol Past Surgical History Procedure Laterality Date Carpal tunnel release Both Hands 12/28 Rotator cuff repair Bilateral No Known Allergies Precautions/Limitations: fall precautions, spinal precautions LLE Weight-Bearing Status: full weight-bearing RLE Weight-Bearing Status: full weight-bearing EVALUATION: SUBJECTIVE: History of Presenting Problem: Buck Bell is a 69 y.o. who presents to therapy s/p C3-7 fusion d/t longstanding UE and LE pain. PT Diagnosis: s/p C3-7 fusion Impairments Found: gait, locomotion, and balance, ergonomics and body mechanics Criteria for Skilled Therapeutic interventions met: yes Previous Level of Function: Ambulation: 0-->independent Transferrin-->independent Toiletin-->independent Bathin-->independent Dressin-->independent Eatin-->independent Communication: 0-->understands/communicates without difficulty Swallowin-->swallows foods and liquids without difficulty * Change In Functional Status Since Onset Of Current Illness/Injury: yes Living Environment/Accessibility: Lives With: alone although has 3 brothers who live near by who can help if needed Living Arrangements: house Home Accessibility: stairs to enter home Number Of Stairs To Enter Home: 2 Number Of Stairs Within Home: 0 Stair Railings At Home: present on right side Financial Concerns: none Transportation Available: family or friend will provide Patient s Goals: to feel better and get my strength back OBJECTIVE : Patient Status/Goals: Reflects last filed data of patient status; may be from multiple contributors. Sensory Examination BLE's intact to light touch Bed Mobility Bed Mobility Skill: Rolling/Turning, PT Eval Level Of Jennings: did not occur today Bed Mobility Skill: Sit To Supine, Rehab Eval Level Of Jennings: Sit/Supine: did not occur today Bed Mobility Skill: Supine To Sit, Rehab Eval Level Of Jennings: Supine/Sit: did not occur today Transfers Transfer Skill: Bed To Chair/Chair To Bed, Rehab Eval Type of Transfer: step pivot Level Of Jennings: Bed To Chair: supervision/set-up Physical Assist/Nonphysical Assist: Bed To Chair: verbal cues, 1 person assist Assistive Device: 2 wheeled walker Goal Transfers Bed to Chair/Chair to Bed Bed to Chair/Chair to Bed STG Status: New STG Transfers Bed to Chair/Chair to Bed: modified independent Transfer Skill: Sit To Stand, Rehab Eval Level Of Jennings: Sit/Stand: supervision/set-up Physical Assist/Nonphysical Assist: Sit/Stand: verbal cues Assistive Device For Transfer: Sit/Stand: 2 wheeled walker Goal Transfers Sit to Stand Sit to Stand STG Status: New STG Transfers Sit to Stand : modified independent Transfer Skill: Stand To Sit, Rehab Eval Level Of Jennings: Stand/Sit: supervision/set-up Physical Assist/Nonphysical Assist: Stand/Sit: verbal cues Assistive Device For Transfer: Stand/Sit: 2 wheeled walker Goal Transfers Stand to Sit Stand to Sit STG Status: New STG Transfers Stand to Sit: modified independent Transfer Safety Analysis, Rehab Eval Transfer Safety Concerns Noted: decreased balance during turns, decreased proprioception Impaired Transfers: impaired balance Gait Gait Skills, PT Eval Level Of Jennings: Gait: supervision/set-up Physical Assist/Nonphysical Assist: Gait: verbal cues Assistive Device For Transfer: Gait: 2 wheeled walker Gait Distance: 300 feet Goal Gait Gait STG Status: New STG Gait: modified independent STG Gait Device: 2 wheeled walker STG Gait Distance: 300 feet Stairs Stair, Performance Number Of Stairs: 4 Stair Railings: present on both sides Level Of Jennings: supervision/set-up Physical Assist/Nonphysical Assist: verbal cues Assistive Device: 2 railings Stair Management Technique: alternating pattern, two rails Safety Impairments: impaired balance, impaired sensory feedback Goal Stairs Stairs STG Status: New STG Number of Stairs: 4 STG Stairs: modified independent STG Stairs Device: 2 railings ROM no ROM deficits were identified Strength Manual Muscle Testing (MMT) Gross strength R LE: 4+/5 good plus, right Gross strength L LE: 4+/5 good plus, left Additional Goals PT Status 1: New PT Goal 1: Pt will be independent donning/doffing collar To promote: Safe discharge home with family/caregiver PT Status 2: New PT Goal 2: Pt will be indep w/ all post op precautions To promote: Safe discharge home with family/caregiver FIM: FIM Transfers Bed/Chair/Wheelchair: 5 Bed/Chair/WC Score Evidence: 5 Verbal Cues, 5 Safety Supervision FIM Locomotion Walk: 5 Distance Walked (feet): 300 feet Walk Score Evidence: 5 Supervise/150 ft+, 5 Verbal Cues/150 ft+ Stairs: 2 Stairs Score Evidence: 2 4-6 Stairs w/Assist Assessment: Physical therapy orders received and acknowledged. Objective impairments inclu de diminished strength, dynamic balance and knowledge deficits. These impairments are causin g functional limitations with patient s inability to safely mobilize in and out of bed, am bulate safely t/o home, don/doff collar independently or access community independently. Com plexities contributing to the need for skilled therapy include pre-existing balance deficits and profound UE strength and sensory deficits. Rehab Potential: good, to achieve stated therapy goals Rehabilitation potential: Patient demonstrates good potential to achieve established goals to address the documented impairments by participating in skilled physical therapy services . PLAN: balance training, bed mobility training, gait training, orthotic fitting/training, postural re-education, transfer training Physical Therapy will follow Buck Bell daily until discharge from therapy or di scharged from the hospital. Anticipated days that therapy will be provided: 07/31/14 Physical Therapy Discharge Recommendations are: Recommended discharge disposition: (Ongoing assessment) Post discharge physical therapy recommendation: home health (home safety eval) Equipment Recommendations: front wheeled walker Patient and/or family has indicated understanding of treatment needs and actively participa lidia in the creation of this plan for care. Today's Treatment Start Time: 1809 Stop time: 0 Time Calculation: 40 minutes Missed Treatment Time: minutes Total Treatment Time: 40 minutes TimedTreatment Code Minutes: 25 minutes Objective: Treatment Provided: Pt received sitting in bed side chair w/ collar on. Pt classified as " B" collar. Discussed post op precautions w/ pt requiring multiple cues and instruction desp ite pt having gone to pre op spine class. Instructed pt in donning/doffing tech for collar w/ pt requiring min A and multiple cues for completion. Pt demonstrates profound weakness a nd loss of ROM bilat shoulders r/t previous RTC injuries as well as possible neuro component from the neck. Pt required cues for safe sit<>std transfer, gait 300' w/ fWW and cues for proper mgmt of A.D. And posture. Up/dwn 4 steps w/ bilat rails and cuing for sequencing. Education: post op spinal precautions, tech for donning/doffing collar. Assessment: Pt presents w/ fairly significant balance deficits and requires supervision and cuing for safety w/ functional mobility. Pt will benefit from PT to promote inc safety and indep w/ all fxn mob to allow for successful discharge to independent environment. Barrier to progress is pre-existing balance deficits as well as severe BUE weakness and ROM loss. Plan for next treatment: LKC, 1P, progress activity tolerance and safety Electronically signed by: Giovana Thomas, PT, 07/26/2014 19:03 lan of Care - John Corona RRT - 07/26/2014 5:44 PM PDTFormatting of this note might be different from the or iginal. Severity Score 5 Class Severity Score 0-4 ITEM 0 1 2 3 4 0 Respiratory History No Smoking history Current tobacco use Up to 10 Pack year history. Simple home regimen Known Pulmonary Disease 20 pack year history Complex Home regimen 30+ pack year history Severe Pulmonary Disease or exacerbation 3 Surgery Status (current admission) No surgery Minor surgery Lower abdominal rib fractures Thoracic or uppe r abdominal Thoracic with pulmonary disease or Central Nervous System 1 Chest X-RAY Clear or Normal baseline Unavailable Improving/clearing Abnormal, Unilateral or mild Infiltrates or atelectasis, Chronic changes Infiltrates mild bilateral or unilateral or pleural effusions extensive Inf iltrates, atelectasis or pleural effusions, pneumothorax 0 Respiratory Pattern Regular pattern Respiratory Rate:8-20 Increased Respiratory Rate, labored Dyspnea on exertion, irregular pattern Use of accessory muscles, prolonged expirato ry phase nasal flaring Severe Dyspnea , Purse Lip Breathing, Use of accessory muscles 0 Breath Sounds Clear Diminished unilaterally Diminished bilaterally &/or crackles Wheezing or Rhonchi &/or absent unilateral Absent bilaterally 0 Cough Strong, non productive Moderate, loose, productive Weak, non-productive Weak, ineffective Non-spontaneous or may require suctioning 0 Sputum None Scant / Thin White/clear Moderate Beige/ yellow Large / Thick Dark Green/Brown Copious / Plugs Hemoptysis shell 0 LOC Alert, oriented, cooperative Disoriented, follows commands Obtunded, arousable, follo ws commands Obtunded, uncooperative, sedated Comatose 1 Oxygen Demand Room air Baseline 1-2 liters 3-6 liters >7 Liters Oxymizer to > 55% 60% or greater Total Severity Score (SS) Class 0-3 1 4-7 2 8-11 3 12-14 4 15+ 5 lan of Care - Donita Mark, Speech Pathologist - 07/26/2014 5:17 PM PDTProblem: General Plan of Ca re (Adult, Obstetrics) Goal: Care Plan Shift Summary & Review . Speech Therapy Swallow Plan of Care Initial Evaluation, Discharge Note Summary: Chart reviewed and initial swallow eval completed today per doctor's order. Pt A/O x4 and with minor increase in pain during swallow. No hx of dysphagia. Puree to regular textures were trialed all with no overt signs or symptoms of airway compromise. Pt able to t sophia thin liquids by straw with no difficulty. SOFTWARE PERFORMANCE ENGINEER provided education about swallowing post o p. Pt has B collar, but not in place during the eval. Pt reported he takes his time to chew and though he has bilateral rotator cuff injuries, he is able to cut his own food. Pt to hav e general textures and thin liquids and no further speech therapy needed at this time. Speech language pathology will follow Buck Bell until discharge from therapy or discharged from the hospital. Speech Language Pathology Discharge Recommendations are: Recommended discharge disposition: home independent Post discharge speech language pathology recommendation: no further Speech Therapy Planned Interventions: SOFTWARE PERFORMANCE ENGINEER Diagnosis: Odynophagia but swallow WNL At bedside, signs of aspiration included: none Risk of aspiration: None/WNL Recommended solid texture: Regular Recommended liquid thickness: Thin liquids Recommend medications be given: Swallow strategies: maintain upright posture during/after eating for 30 mins Patient Status/Goals: Reflects last filed data of patient status; may be from multiple contributors. Recommended Solid Texture: Regular Recommended Liquid Texture: Thin liquids Recommended Feeding/Eating Techniques: maintain upright posture during/after eating for 30 mins Goal Swallow Swallow STG Status: New, Met STG Swallow: Patient will complete swallow evaluation with SOFTWARE PERFORMANCE ENGINEER s/p ACS Electronically signed by: Donita Taylor SPEECH PATHO, 07/26/2014 17:17 Start Time: 1640 Stop time: 1703 Duration: 23 minutes 5:1 7 PM PDTOp Note - Wes Weber MD - 07/26/2014 2:02 PM PDT Operative Note Buck Bell 69 y.o. male 1945 [id number] Proc. Date 07/26/2014 Preop Dx Cervical spondylosis with myelopathy Cervical stenosis Cervical degenerative disc disease Cervical foraminal stenosis Cervical kyphosis Cervical radiculopathy Postop Dx same Procedure 1. Anterior cervical discectomy and fusion C3-4, C4-5, C5-6, and C6-7 2. Anterior cervical plating C3-7 using [employer] 3. Anterior structural allograft bone C3-4, C4-5, C5-6, and C6-7 4. Microsurgical technique with use of operating microscope Anesthesia General, Dr. Calix Surgeon Surgeon(s) and Role: * Wes Weber MD - Primary Chief Bank Examiner Daniel Bonilla EBL 264 Findings C3-C7 severe DDD with large anterior and posterior osteophytes. Complications none Specimens * No specimens in log * Drains Drain/Device Site 07/26/14 1326 #1 Right: cervical spine collapsible closed device (Act alejandro) Insertion Site Appearance clean and dry 07/26/2014 13:54 Drainage Characteristics/Odor serosanguineous 07/26/2014 13:54 Drainage Amount scant 07/26/2014 13:54 OPERATIVE DETAILS: After obtaining consent, the patient was taken to the operating room and placed under gener al anesthesia. He was then positioned in a supine position on the Bob axis table with th e patient's face, neck, chest and extremities positioned and padded appropriately. He was pl aced in 10 lbs of holter traction. Fluoroscopy was then used to localize the level of C3-C7 on lateral fluoroscopy and a right sided incision was planned in an anterior skin crease. His neck was prepped and draped in standard fashion and a timeout was performed. All members of the surgical team agreed with the timeout. The anterior neck was then incised opening a 2 inch incision in the right anterior neck wit h a number 10 blade knife. Subcutaneous tissues were made hemostatic with Bovie cautery and dissection was taken down to and through the platysma. The platysma was then undermined us ing Metzenbaum scissors. Sharp dissection was then performed medial to the sternocleidomast oid that allowed an approach to the prevertebral space. The prevertebral fascia was opened with scissors and Kitner pushers. The fluoroscopy was then used to identify the C4-5 level. Bovie cautery was then used to taken down the longus coli from C3 to C7 bilaterally. The Koros retractor was then inserted and the microscope was brought in for microsurgical dissec tion. The discs were then removed in similar fashion at C3-4, C4-5, C5-6, and C6-7. The discs we re first incised and then curetted. The high speed drill was then used to remove cervical o steophytes anteriorly, prepare the endplates for arthrodesis, and then remove the posterior osteophytes which were prominent at each segment. The anterior osteophytes were very promin ent at C4, C5, and C6 as well. The PLL was then taken down centrally with a microhook and 1 mm Kerrison. A 2 mm Kerrison was then used to take down the ligamentum more laterally unti l a Dandy hook could easily be passed out the foramen. This was performed without event fro m C3-C7 nothing severe cord compress worst at C4-5 and a subluxation at C4-5. Curettes were then used to remove any remaining cartilage off the endplates. The trials were then used. A 6, 5, 5, and 6 mm height spacers were determined to be the ap propriate height at C3-4, C4-5, C5-6 and C6-7. The structural allograft prior to insertion was filled with [place] bone. The structural allograft bone was then tamped into place at C3-4, C4-5, C5-6, and C6-7. Anterior cervical plating was then performed by holding a 80 mm [place] Translational plat e in place over the segments with holding pins. Fluoroscopy was used to confirm its appropr iate positioning and then banquet pilot holes were made in the C3-C7 vertebral bodies. 16 mm variab le screws were then placed at C3, C4, and C6. 17 mm variables screws were placed at C5. 17 mm fixed rescue screws were placed at C7. Good purchase was obtained throughout. The lock ing mechanism was then engaged at each segment. Bipolar cautery and flowseal was then used for hemostasis and the wound was copiously irrig ated. A drain was placed in the prevertebral space and tunneled out the skin. The platysma was then closed with 3-0 vicryl sutures followed by closure of the skin with a layer of torres ll. Skin glue was used for final skin closure. The wound was dressed with Steristrips and the drain was secured with Steristrips and a tegaderm. All counts were reported as correct. The patient tolerated the procedure and was transferr ed to the recovery room in stable condition. Electronically signed by: Wes Weber MD 07/26/2014 14:00 [facility] rief Op Note - Chris Weber MD - 07/26/2014 2:00 PM PDTFormatting of this note might be different from the origin al. Brief Operative Note Buck Bell 69 y.o. male 1945 [id number] Proc. Date 07/26/2014 Preop Dx Cervical spondylosis with myelopathy Cervical stenosis Cervical degenerative disc disease Cervical foraminal stenosis Cervical kyphosis Cervical radiculopathy Postop Dx same Procedure 1. Anterior cervical discectomy and fusion C3-4, C4-5, C5-6, and C6-7 2. Anterior cervical plating C3-7 using [place]bond[place] Translational 3. Anterior structural allograft bone C3-4, C4-5, C5-6, and C6-7 4. Microsurgical technique with use of operating microscope Anesthesia General, Dr. Calix Surgeon Surgeon(s) and Role: * Wes Weber MD - Primary Chief Bank Examiner Daniel Bonilla EBL 264 Findings C3-C7 severe DDD with large anterior and posterior osteophytes. Complications none Specimens * No specimens in log * Drains Drain/Device Site 07/26/14 1326 #1 Right: cervical spine collapsible closed device (Act alejandro) Insertion Site Appearance clean and dry 07/26/2014 13:54 Drainage Characteristics/Odor serosanguineous 07/26/2014 13:54 Drainage Amount scant 07/26/2014 13:54 Electronically signed by: Wes Weber MD 07/26/2014 14:00 [facility] documented in this encou nter Plan of [...] | | [address] [facility] | | | | | | [place] [address] | | | | | | [phone] | | | | | | | | +--------+ + + + + | 03/13/ | Office | Neurology | Veronica, | | | 2019 | Visit | | [address] | | | | [address] [place], | | | | | | [place] [address] | | | | | | [phone] | | | | | | | [...] Preoperative x-ray dated January 19, | | 2014.FINDINGS: Frontal and lateral views of the cervical [...] + + | Performing | Address | City/State[facility] | Phone Number | | Organization | [...]
--- OUTSIDE RECORDS SUMMARY | ~2019-12-22 | XMS | Encounter Summary ---
Demographics + + + | Address | [address] | | | [place] [address] | + + + | Home Phone | | + + + | Preferred Language | Unknown | + + + | Marital Status | Single | + + + | Confucianism Affiliation | 1041 | + + + | Race | Unknown | + + + | Ethnic Group | Unknown | + + + Author + + + | Author | [facility] | | | and [place] | + + + | Organization | [facility] | | | and [...] Providers + +------+ + | Care Production Administrator Name | Role | Phone | + +------+ + | Dominic Carlin MD | PCP | | + +------+ + Reason for Visit + +--------+ + | Reason | Onset | Comments | | | Date | | + +--------+ + | Dementia | 10/12/ | | | | 2020 | | + +--------+ + Encounter Details +--------+ + + + + | Date | Type | Department | Care Team | Description | +--------+ + + + + | 10/12/ | Telephone | [facility] | Luan Gamble MD | Dementia | | 2020 | | HOSPITAL NEUROLOGY | [address] | | | | | CLINIC [address] | [place] | | | | | DR [place], | [address] | | | | | [place] [address] | | | | | | [phone] | | | +--------+ + + + [...] this encounter Miscellaneous Notes Telephone Encounter - Luan Gamble MD - 10/13/2019 12:05 PM PDTCalled and spoke with sondra Lennon from [facility], patient has significant dementia and 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 Nurse Sonny bynum agreeable and referred to vascular surgeon and will follow-up with us in 3-4 months and w ill she will schedule Dr. Kurtis Gamble documented i n this encounter Plan of Treatment +--------+ + [...] HOSPITAL | | | | | | [place] [address] | | | | | | [phone] | | | | | | | | +--------+ + + + + | 03/13/ | Office | Neurology | Veroinca, | | | 2019 | Visit | | [address] | | | | [address] [place], | | | | | | [place] [address] | | | | | | [phone] | | | | | | | | +--------+ + + + + documented as of this encounter Visit Diagnoses Not on filedocumented in this encounter"
--- OUTSIDE RECORDS SUMMARY | ~2019-12-22 | XMS | Encounter Summary ---
Demographics + + + | Address | [address] | | | [place] [address] | + + + | Home Phone [...] Team Providers + +------+ + | Care Cabinet Maker Name | Role | Phone | [...] | | [address] | [place] [address] | | | | | [place] | [phone] | | | | | [address] | | | | | | [phone] | | | +--------+ + + + [...] know that he completed his MRI's at [facility] on 01/30/14Electronically s igned by Milla Brooks [...] [place] | | | | | | [place] [address] | | | | | | [phone] | | | | | | | | +--------+ + + + + | 03/13/ | Office | Neurology | Veronica, | | | 2019 | Visit | | [address] | | | [address] [place], | | | | | | [place] [address] | | | | | | [phone] | | | | | | | | +--------+ + + + + documented as of this encounter Visit Diagnoses Not on filedocumented in this encounter"
--- OUTSIDE RECORDS SUMMARY | ~2019-12-22 | XMS | Encounter Summary ---
Demographics + + + | Address | [address] | | | [place] [address] | + + + | Home Phone [...] Organization | [facility] [...] Team Providers + +------+ + | Care I&C Tech Name | Role | Phone | + [...] W Teresa | | | | | Procedures | [address] | [place], | | | | | MRI Lumbar | [facility] | [place] | | | | | Spine wo | [place] [address] | [address] | | | | | Contrast | Phone: | Phone: | | | | | | [phone] | [phone] | | | | | | Fax: | Fax: | | | | | | [phone] | [phone] | +--------+--------+ + + + + Diagnostic/Screening [...] | | | | | with | [place], | [place] | | | | | myelopathy | [place] [address] | [address] | | | | | Cervical | Phone: | Phone: | | | | | cord | [phone] | [phone] | | | | | myelomalacia | Fax: | Fax: | | | | | [facility]) | [phone] | [phone] | | | | | Degenerative | [...] | Spinal | Dominic Cuevas MD | MD [address] | | | | | stenosis in | [address] | | | | | cervical | [place], | [place], [place] | | | | | region | [place] | [address] | | | | | Cervical | [address] | Phone: | | | | | nerve root | Phone: | [phone] | | | | | impingement | [phone] | Fax: | | | | | SPINAL | Fax: | [phone] | | | | | STENOSIS C4, | [phone] | | | | | | WITH NERVE | | | | | | | IMPINGEMENT | | | | | | | OF C3-C6 | | | | | | | Procedures | | | | | | | [place] OFFICE | | | | | | [...] Melvin MD | Cervical spondylosis | | 2014 | Visit | NEUROSURGERY [address] | [address] | with myelopathy | | | | [address] | [place] [address] | (Primary Dx); | | | | [place] | [phone] | Cervical cord | | | | [address] | | myelomalacia ([facility]); | | | | [phone] | | Degenerative disc | | | [...] research this procedure more by going to: [email or web address] Click the Treatment Options link on the left column. Then, look for Anterior Cervical Discectomy and Fusion (ACDF). documented in this encounter Progress Notes Wes Melvin MD - 01/19/2014 9:08 AM PDTFormatting of this note might be different from t he original. Wes Melvin MD [address] [place] [address], [address] [place] [address] FAX: NEUROSURGERY HISTORY AND PHYSICAL EXAMINATION CHIEF [...] has no apparent deficits with short or senior care memory. CRANIAL NERVES: II: Acuity is intact. [...] Intrinsics 5 4 Ulnar Intrinsics 5 4 Analytical Statistician Strength 5 4 Hip Flexion 4 4 [...] 01/19/2014 10:32 documented in this encou nter Miscellaneous Notes Miscellaneous - ONBASE SCAN [facility] - 01/28/2014 12:00 AM PDT iscellaneous - ONBASE SCAN [facility] - 01/19/2014 12:00 AM PDTEle ctronically signed by Rajesh Vick at 01/25/2014 10:09 AM PDTdocumented in this encounter Plan of [...] | | | | | [address] [facility] | | | | | | [place] [address] | | | | | | [phone] | | | | | | | | +--------+ + + + + | 03/13/ | Office | Neurology | Veronica, | | | 2020 | Visit | | Angie, SHOTBLAST OPERATOR [address] | | | | | | [address] [facility], | | | | | | [place] [address] | | | | | | [phone] | | | | | | | | +--------+ + + + + documented as of this encounter Results MRI Lumbar [...] + + | Performing | Address | City[facility]State[facility] | Phone Number | | Organization | | | | + +---------+ + + | MISCELLANEOUS LAB | | | [phone] | + +---------+ + + | MISCELANIOUS LAB | | | [phone] | + +---------+ + + MRI Cervical [...] Dictated and Signed by: Yash Garcia | Jose Esteban MD Electronically signed: 01/31/2014 9:28 AM | | + + + + + | Procedure Note | + + | Chun Colón Results In - 01/31/2014 9:31 AM PDT [...] | in the cervical cord at the [id number]. Multilevel degenerative disc and spondylitic | | [...] + | MISCELLANEOUS LAB | | | [phone] | + +---------+ + + | MISCELANIOUS LAB | | | [phone] | + +---------+ + + documented in [...]
--- OUTSIDE RECORDS SUMMARY | ~2019-12-22 | XMS | Encounter Summary ---
Demographics + + + | Address | [address] | | | [place] [address] | + + + | Home Phone | | + + + | Preferred Language | Unknown | + + + | Marital Status | Single | + + + | Episcopalian Affiliation | 1041 | + + + | Race | Unknown | + + + | Ethnic Group | Unknown | + + + Author + + + | Author | [facility] | | | and [place] | + + + | Organization | [facility] | | [...] Team Providers + +------+ + | Care Neuropsychologist Name | Role | Phone | + +------+ + | Sydney Lennon | PCP | | + +------+ + Reason for Visit +---------+--------+ + | Reason | Onset | Comments | | | Date | | +---------+--------+ + | Imaging | 12/19/ | question | | | 2020 | | +---------+--------+ + Encounter Details +--------+ + + + + | Date | Type | Department | Care Team | Description | +--------+ + + + + | 12/19/ | Telephone | [facility] | Salvador Jose MD | Imaging (question ) | | 2020 | | VASCULAR SURGERY | [address] | | | | | [address] | [address] [place] | | | | | E [place], [place] | [place] [address] | | | | | [address] | [phone] | | | | | [phone] | | | +--------+ + + + [...] Telephone Encounter - Yazmin Jesus RN - 12/20/2019 11:38 AM PDTMessage left for Alici a, CTA is an old order and is not needed anymore. elephone Encounter - Sherin Tate Mason - 12/20/2019 8:39 AM PDTAlicia - Elenita, is calling regarding Imaging (question ) and would like a call back. Additional Call Details: Inquiring to know if the CT Angiogram head neck w/contrast is sti ll needing to be completed or if it is an old order. Eva can be reached directly at [phone]. If this is a symptom based call, was patient offered triage? Not Applicable If this is a symptom based call and you were unable to immediately transfer the call to a brandon jane form setter metal road forms was caller made aware that if at [...] [place] | | | | | | [place] [address] | | | | | | [phone] | | | | | | | | +--------+ + + + + | 03/13/ | Office | Neurology | Veronica, | | | 2020 | Visit | | [address] | | | | [address] [place], | | | | | | [place] [address] | | | | | | [phone] | | | | | | | | +--------+ + + + + documented as of this encounter Visit Diagnoses Not on filedocumented in this encounter"
--- OUTSIDE RECORDS SUMMARY | ~2019-12-22 | XMS | Encounter Summary ---
Demographics + + + | Address | [address] | | | [place] [address] | + + + | Home Phone | | + + + | Preferred Language | Unknown | + + + | Marital Status | Single | + + + | Mandaeism Affiliation | Unknown | + + + | Race | or | + + + | Ethnic Group | Not or | + + + Author + + + | Author | [facility] | + + + | Organization | [facility] | + + + | Address | Unknown | + + + | Phone | Unavailable | + + + Support + + +---------+ + | Name | Relationship | Address | Phone | + + +---------+ + | Gautam Ray | ECON | Unknown | | + + +---------+ + Care Team Providers + +------+ + | Care Tallow Refiner Name | Role | Phone | + [...] | | | | | | [place], | | | | | | | [place] | | | | | | | [address] | | | | | | | Phone: | | | | | | | [phone] | | | | | | | Fax: | | | | | | | [phone] | +--------+--------+ + + + + Encounter Details +--------+ + + + + | Date | Type | Department | Care Team | Description | +--------+ + + + + | 04/17/ | Procedure | Orthopedics Rehab | Oscar Mcclellan MD | EMG - | | 2007 | | and Phys Med at | [address] | Electromyography | | | | [place] [facility] | [place], | | | | | and Healing [address] | [place] [address] | | | | | [facility] | [phone] | | | | | Health and Healing, | | | | | | [facility] | | | | | | [address], [place] | | | | | | [address] | | | | | | [phone] | | | +--------+ + + + [...] data and waveforms have been scanned into [employer]. The summary is as follows: Motor Nerve [...] | + + +--------+ + + | IN MUSCLE TEST, ONE | Procedures | Routin | Carpal Tunnel | Ordered: 04/17/2008 | | LIMB | | e | Syndrome Ulnar | | | | | | Neuritis Cervical | | | | | | Radiculitis | | + + +--------+ + + | IN MOTOR NERVE | Procedures | Routin | Carpal Tunnel | Ordered: 04/17/2008 | | CONDUCT TEST, W | | e | Syndrome Ulnar | | | F-WAVE | | | Neuritis Cervical | | | | | | Radiculitis | | + + +--------+ + + | IN NERVE | Procedures | Routin | Carpal [...]
--- OUTSIDE RECORDS SUMMARY | ~2019-12-22 | XMS | Encounter Summary ---
Demographics + + + | Address | [address] | | | [place] [address] | + + + | Home Phone | | + + + | Preferred Language | Unknown | + + + | Marital Status | Single | + + + | Restorationist Affiliation | 1041 | + + + | Race | Unknown | + + + | Ethnic Group | Unknown | + + + Author + + + | Author | [facility] | | | and [place] | + + + | Organization | [facility] | | | [...] Providers + +------+ + | Care Manager Document Control Name | Role | Phone | + [...] | MED CTR EXTERNAL | MD Kathy [address] | | | | | IMAGING [address] | [address] | | | | | [address] [place] | [place] [address] | | | | | [place] [address] | | | | | | [phone] | | | +--------+ + + + [...] | | | | | [address] [facility] | | | | | | [place] [address] | | | | | | [phone] | | | | | | | | +--------+ + + + + | 03/13/ | Office | Neurology | Veronica, | | | 2019 | Visit | | [address] | | | [address] [place], | | | | | | [place] [address] | | | | | | [phone] | | | | | | | [...]
--- OUTSIDE RECORDS SUMMARY | ~2019-12-22 | XMS | Encounter Summary ---
Demographics + + + | Address | [address] | | | [place] [address] | + + + | Home Phone [...] + + | Author | [facility] | + + + | Organization | [facility] | + + + | Address | Unknown | + + + | Phone | Unavailable | + + + Support + + +---------+ + | Name | Relationship | Address | Phone | + + +---------+ + | Gautam Ray | ECON | Unknown | | + + +---------+ + Care Team Providers + +------+ + | Care Director Of In Service Education Name | Role | Phone | + [...] | in shoulder | Rd | Rd [place], | | | | | region, | [place], [place] | [place] | | | | | unspecified | [address] | [address] | | | | | Procedures | Phone: | Phone: | | | | | CONSULT TO | [phone] | [phone] | | | | | ORTHOPEDICS | Fax: | Fax: | | | | | AND | [phone] | [phone] | | | | | REHABILITATI | [...] | 2008 | Visit | Center at [facility] [address] | [address] | Cervical | | | | [address] | [place], | Radiculopathy | | | | Mailcode: CH8N | [place] [address] | | | | | [place] for [facility] | [phone] | | | | | and Healing, | | | | | | Building | | | | | | Floor [place], [place] | | | | | | [address] | | | | | | [phone] | | | +--------+---------+ + + + [...]
--- OUTSIDE RECORDS SUMMARY | ~2019-12-22 | XMS | Encounter Summary ---
Demographics + + + | Address | [address] | | | [place] [address] | + + + | Home Phone [...] + + + | Author | [facility] | + + + | Organization | [facility] | + + + | Address | Unknown | + + + | Phone | Unavailable | + + + Support + + +---------+ + | Name | Relationship | Address | Phone | + + +---------+ + | Gautam Ray | ECON | Unknown | | + + +---------+ + Care Team Providers + +------+ + | Care Wood Shop Teacher Name | Role | Phone | + +------+ + PCP | Unavailable | + +------+ + Encounter Details +--------+ + + + + | Date | Type | Department | Care Team | Description | +--------+ + + + + | 06/29/ | Documentati | Orthopedics Rehab | Oscar Mcclellan MD | | | 2008 | on | and Phys Med at | [address] | | | | | [facility] | [facility], | | | | | and Healing [address] | [place] [address] | | | | | [facility] | [phone] | | | | | Health and Healing, | | | | | | [facility] | | | | | | Floor [place], [place] | | | | | | [address] | | | | | | [phone] | | | +--------+ + + + [...]
--- OUTSIDE RECORDS SUMMARY | ~2019-12-22 | XMS | Encounter Summary ---
Demographics + + + | Address | [address] | | | [place] [address] | + + + | Home Phone | | + + + | Preferred Language | Unknown | + + + | Marital Status | Single | + + + | Yarsani Affiliation | 1041 | + + + | Race | Unknown | + + + | Ethnic Group | Unknown | + + + Author + + + | Author | [facility] | | | and [place] | + + + | Organization | [facility] | | | [...] Team Providers + +------+ + | Care Nutrition Specialist Name | Role | Phone | [...] | | | | | | | ID | | | | | | | [...] + + | 11/30/ | Anesthesia | [facility] | Allison Segura, | | | 2019 | Event [facility] | MD [address] | | | | | OPER[address] | [place] [address] | | | | | [address] | [phone] | | | | | [place], [place] | | | | | | [address] | | | | | | [phone] | | | +--------+ + + + [...] Dahiana Pablo RN | | IV | rkch-tvx-nutrbc catheter system; | | | | | [...] EVALUATION Buck Bell 74 y.o. male 1945 [id number] Procedure(s) CAROTID ENDARTERECTOMY (Right Neck) Cooperates? Yes [...] Allison Segura MD 12/01/2019 4:25 PM PDT [facility] nesthesia Procedure Notes - Allison Segura MD [...] EVALUATION Buck Bell 74 y.o. male 1945 [id number] Procedure(s): CAROTID ENDARTERECTOMY (Right Neck) Review of [...] NOTE Buck Bell 74 y.o. male 1945 [id number] CAROTID ENDARTERECTOMY (Right Neck) HANDOFF NOTE Handoff [...] Allison Segura MD 12/01/2019 4:18 PM PDT [facility] documented in this encounter Plan of Treatment [...] HOSPITAL | | | | | | [place] [address] | | | | | | [phone] | | | | | | | | +--------+ + + + + | 03/13/ | Office | Neurology | Veronica, | | | 2019 | Visit | | [address]I [address] | | | | | | [address] [facility], | | | | | | [place] [address] | | | | | | [phone] | | | | | | | [...]
--- OUTSIDE RECORDS SUMMARY | ~2019-12-22 | XMS | Encounter Summary ---
Demographics + + + | Address | [address] | | | [place] [address] | + + + | Home Phone [...] + + + | Author | [facility] | | | and [place] | + + + | Organization | [facility] | | [...] Providers + +------+ + | Care Clinical Program Director Name | Role | Phone | [...] | | | | | | | [place] | | | | | | | [...] + + | 07/26/ | Hospital | [facility] | Wes Weber MD | | | 2015 - | Encounter | [facility] | [address] | | | | | [address] | [place] [address] | | | 07/27/ | | [place] [address] | [phone] | | | 2014 | | [phone] | | | +--------+ + + + [...] might be differen t from the original. [facility] - [facility] NEUROSURGERY DISCHARGE SUMMARY Patient Name: Buck [...] Discontinued Medications ibuprofen 400 mg tablet aka: RUSTY DUMONT ; Current Discharge Medication List START taking [...] Care Everywhere.CERVICAL FUSION , DISCHARGE INSTRUCTIONS FOR ([place])documented in this encounter Medications at Time of [...] Yesica Sol RN at 07/26/2014 10:34 PM PDTFetroe, Yesica Rasmussen RN - 07/26/2014 6:00 PM [...] Wes Weber MD - 07/26/2014 9:45 AM PDT[facility]ORY [...] signed by: Wes Weber MD [facility]/26/2014 9[facility] ernando, GINO Benson - 07/11/2014 9:18 AM PST GINO Ponce [address] [place] [address], [address] [place] [address] FAX: NEUROSURGERY HISTORY AND PHYSICAL EXAMINATION CHIEF [...] has 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 CRANIAL NERVES: II: Acuity is [...] Intrinsics 5 4 Ulnar Intrinsics 5 4 Drapery Hemmer Automatic Strength 5 4 Hip Flexion 4 4 [...] to discharge. lan of Care - Gabriela Benitez Mason, OT - 07/27/2014 11:51 AM PDTProblem: General Plan of Care (Adult, Obste trics) Goal: Care Plan Shift Summary & Review . Occupational Therapy Plan of Care Initial Evaluation, Treatment Note Summary: Pt. log rolled OOB with no (A). Donns "B" [place] collar but needs help to tighten it [...] prior to discha rge for ed. On [place] collar and precautions. Planned Interventions:Planned Therapy Interventions: ADL retraining, orthotic fitting/train ing, transfer training Patient Status/Goals Reflects last filed data of patient status; may be from multiple contributors. Basic ADLs Instrumental ADLs Activity Tolerance Cognitive Linguistics Cognitive Tests Bed Mobility Bed Mobility Skill: Rolling/Turning, PT Eval Level Of [place]: independent Bed Mobility Skill: Sit To Supine, Rehab Eval [place]: Sit/Supine: independent Bed Mobility Skill: Supine To Sit, Rehab Eval Level [place]: Supine/Sit: independent Transfers Transfer Skill: Bed To Chair/Chair To Bed, Rehab Eval Type of Transfer: step pivot Level [place]: Bed To Chair: modified independent Physical Assist/Nonphysical Assist: Bed To Chair: (.) Assistive Device: 2 wheeled walker Goal Transfers Bed to Chair/Chair to Bed Bed to Chair/Chair to Bed STG Status: Met STG Transfers Bed to Chair/Chair to Bed: modified independent Transfer Skill: Sit To Stand, Rehab Eval Level [place]: Sit/Stand: modified independent Physical Assist/Nonphysical Assist: Sit/Stand: (.) Assistive Device For Transfer: Sit/Stand: 2 wheeled walker Goal Transfers Sit to Stand Sit to Stand STG Status: Met STG Transfers Sit to Stand : modified independent Transfer Skill: Stand To Sit, Rehab Eval Level [place]: Stand/Sit: modified independent Physical Assist/Nonphysical Assist: Stand/Sit: [...] Additional Goals lan of Care - Joshua Boggs LICSW - 07/27/2014 11:04 AM PDTProblem: General Plan of Care (Adult, Obs tetrics) Goal: Care Plan Shift Summary & Review . Outcome: Progressing This case management manager visited with this patient who had cervical surgery regarding discharge ne edss. The patient did not feel that he would have any DC needs. He has access to medical uient if needed and has two brothers who [...] Mobility Skill: Rolling/Turning, PT Eval Level Of [place]: independent Bed Mobility Skill: Sit To Supine, Rehab Eval Level [place]: Sit/Supine: independent Bed Mobility Skill: Supine To Sit, Rehab Eval Level [place]: Supine/Sit: independent Transfers Transfer Skill: Bed To Chair/Chair To Bed, Rehab Eval Type of Transfer: step pivot Level [place]: Bed To Chair: modified independent Physical Assist/Nonphysical Assist: Bed To Chair: (.) Assistive Device: 2 wheeled walker Goal Transfers Bed to Chair/Chair to Bed Bed to Chair/Chair to Bed STG Status: Met STG Transfers Bed to Chair/Chair to Bed: modified independent Transfer Skill: Sit To Stand, Rehab Eval Level Of [place]: Sit/Stand: modified independent Physical Assist/Nonphysical Assist: Sit/Stand: (.) Assistive Device For Transfer: Sit/Stand: 2 wheeled walker Goal Transfers Sit to Stand Sit to Stand STG Status: Met STG Transfers Sit to Stand : modified independent Transfer Skill: Stand To Sit, Rehab Eval Level Of [place]: Stand/Sit: modified independent Physical Assist/Nonphysical Assist: Stand/Sit: (.) Assistive Device For Transfer: Stand/Sit: 2 wheeled walker Goal Transfers Stand to Sit Stand to Sit STG Status: Met STG Transfers Stand to Sit: modified independent Transfer Safety Analysis, Rehab Eval Transfer Safety Concerns Noted: decreased balance during turns, decreased proprioception Impaired Transfers: impaired balance Gait Gait Skills, PT Eval Level [place]: Gait: modified independent Physical Assist/Nonphysical Assist: Gait: (.) Assistive Device For Transfer: Gait: 2 wheeled walker Gait Distance: 300 feet Goal Gait Gait STG Status: Met STG Gait: modified independent STG Gait Device: 2 wheeled walker STG Gait Distance: 300 feet Stairs Stair, Performance Number Of Stairs: 4 Stair Railings: present on both sides Level [place]: modified independent Physical Assist/Nonphysical Assist: verbal cues [...] con t OP PT once cleared by in approx 4wks. Physical Therapy Discharge Recommendations are: Recommended discharge disposition: Home w/ family as needed Post discharge physical therapy recommendation: OP PT in 4wks Plan for next treatment: Discharge Electronically signed by: Giovana Thomas PT, 07/27/2014 11:01 lan of Omar scherer-Estefania Davis RN - 07/27/2014 4:35 AM PDTProblem: General Plan of Care (Adult, Obste trics) Goal: Care Plan Shift Summary & Review . Outcome: Progressing Pt has been sleeping well. Dressing CDI. Lexa cont to put out moderate amts of drainage. lan of Lan Reed, SUPERVISOR MOLD YARD - 07/27/2014 4:29 AM PDTThe patient is [...] Mobility Skill: Rolling/Turning, PT Eval Level Of [place]: did not occur today Bed Mobility Skill: Sit To Supine, Rehab Eval Level Of [place]: Sit/Supine: did not occur today Bed Mobility Skill: Supine To Sit, Rehab Eval Level [place]: Supine/Sit: did not occur today Transfers Transfer Skill: Bed To Chair/Chair To Bed, Rehab Eval Type of Transfer: step pivot [place]: Bed To Chair: supervision/set-up Physical Assist/Nonphysical Assist: Bed To Chair: verbal cues, 1 person assist Assistive Device: 2 wheeled walker Goal Transfers Bed to Chair/Chair to Bed Bed to Chair/Chair to Bed STG Status: New STG Transfers Bed to Chair/Chair to Bed: modified independent Transfer Skill: Sit To Stand, Rehab Eval Level [place]: Sit/Stand: supervision/set-up Physical Assist/Nonphysical Assist: Sit/Stand: verbal cues Assistive Device For Transfer: Sit/Stand: 2 wheeled walker Goal Transfers Sit to Stand Sit to Stand STG Status: New STG Transfers Sit to Stand : modified independent Transfer Skill: Stand To Sit, Rehab Eval Level [place]: Stand/Sit: supervision/set-up Physical Assist/Nonphysical Assist: Stand/Sit: verbal cues Assistive Device For Transfer: Stand/Sit: 2 wheeled walker Goal Transfers Stand to Sit Stand to Sit STG Status: New STG Transfers Stand to Sit: modified independent Transfer Safety Analysis, Rehab Eval Transfer Safety Concerns Noted: decreased balance during turns, decreased proprioception Impaired Transfers: impaired balance Gait Gait Skills, PT Eval Level [place]: Gait: supervision/set-up Physical Assist/Nonphysical Assist: Gait: verbal cues Assistive Device For Transfer: Gait: 2 wheeled walker Gait Distance: 300 feet Goal Gait Gait STG Status: New STG Gait: modified independent STG Gait Device: 2 wheeled walker STG Gait Distance: 300 feet Stairs Stair, Performance Number Of Stairs: 4 Stair Railings: present on both sides Level [place]: supervision/set-up Physical Assist/Nonphysical Assist: verbal cues Assistive [...] Today's Treatment Start Time: 1809 Stop time: 1849 Time Calculation: 40 minutes Missed Treatment Time: [...] 07/26/2014 19:03 lan of Care - John Corona, SUPERVISOR MOLD YARD - 07/26/2014 5:44 PM PDTFormatting of this [...] thin liquids by straw with no difficulty. NURSING HOME SOCIAL WORKER provided education about swallowing post o p. [...] recommendation: no further Speech Therapy Planned Interventions: NURSING HOME SOCIAL WORKER Diagnosis: Odynophagia but swallow WNL At bedside, [...] Swallow: Patient will complete swallow evaluation with NURSING HOME SOCIAL WORKER s/p ACS Electronically signed by: Donita Taylor SPEECH PATHO, 07/26/2014 17:17 Start Time: 1640 Stop time: 1703 Duration: 23 minutes 5:1 7 PM PDTOp Note - Wes Weber MD - 07/26/2014 2:02 PM PDT Operative Note Buck Bell 69 y.o. male 1945 [id number] Proc. Date 07/26/2014 Preop Dx Cervical spondylosis with myelopathy Cervical stenosis Cervical degenerative disc disease Cervical foraminal stenosis Cervical kyphosis Cervical radiculopathy Postop Dx same Procedure 1. Anterior cervical discectomy and fusion C3-4, C4-5, C5-6, and C6-7 2. Anterior cervical plating C3-7 using [employer] [employer] 3. Anterior structural allograft bone C3-4, C4-5, C5-6, and C6-7 4. Microsurgical technique with use of operating microscope Anesthesia General, Dr. Calix Surgeon Surgeon(s) and Role: * Wes Weber MD - Primary Gasoline Catalyst Operator Daniel Bonilla EBL 264 Findings C3-C7 severe [...] allograft prior to insertion was filled with Starke bone. The structural allograft bone was then tamped into place at C3-4, C4-5, C5-6, and C6-7. Anterior cervical plating was then performed by holding a 80 mm [place] [employer] plat e in place over the segments with holding pins. Fluoroscopy was used to confirm its appropr iate positioning and then asphalt worker holes were made in the C3-C7 vertebral [...] signed by: Wes Weber MD 07/26/2014 14:00 [facility] rief Op Note - Chris Weber MD - 07/26/2014 2:00 PM PDTFormatting of this note might be different from the origin al. Brief Operative Note Buck Bell 69 y.o. male 1945 [id number] Proc. Date 07/26/2014 Preop Dx Cervical spondylosis with myelopathy Cervical stenosis Cervical degenerative disc disease Cervical foraminal stenosis Cervical kyphosis Cervical radiculopathy Postop Dx same Procedure 1. Anterior cervical discectomy and fusion C3-4, C4-5, C5-6, and C6-7 2. Anterior cervical plating C3-7 using [employer] [employer] 3. Anterior structural allograft bone C3-4, C4-5, C5-6, and C6-7 4. Microsurgical technique with use of operating microscope Anesthesia General, Dr. Calix Surgeon Surgeon(s) and Role: * Wes Weber MD - Primary Gasoline Catalyst Operator Daniel Bonilla EBL 264 Findings C3-C7 severe DDD with large anterior and posterior osteophytes. Complications none Specimens * No specimens in log * Drains Drain/Device Site 07/26/14 1326 #1 Right: cervical spine collapsible closed device (Act alejandro) Insertion Site Appearance clean and dry 07/26/2014 13:54 Drainage Characteristics/Odor serosanguineous 07/26/2014 13:54 Drainage Amount scant 07/26/2014 13:54 Electronically signed by: Wes Weber MD 07/26/2014 14:00 [facility] documented in this encou nter Plan [...] | | | [address] [facility] | | | | | | [place] [address] | | | | | | [phone] | | | | | | | | +--------+ + + + + | 03/13/ | Office | Neurology | Veronica, | | | 2019 | Visit | | [address] | | | | | | [address] [place], | | | | | | [place] [address] | | | | | | [phone] | | | | | | | [...] | HISTORY:postop COMPARISON: Preoperative x-ray dated January 19 | | | 2013. FINDINGS: Frontal and [...] 07/26/2014 12:00 AMHISTORY:postopCOMPARISON: Preoperative x-ray dated January 19 | | 2013.FINDINGS: Frontal and lateral views [...] | | | | | | | [facility] 07/26/14 at 1800, For 2 doses, [...] PDT | | | | | Starting [facility] 07/26/14 at 1516, | | | [...] | | | | | | use [place] 10/ if ordered. If | | | | [...] | | | | | | | [facility] 07/26/14 at 1321, Hold if HR < [...] AM PDT | | | | | [facility] 07/26/14 at 1545, If | | | [...]
--- OUTSIDE RECORDS SUMMARY | ~2019-12-22 | XMS | Encounter Summary ---
Demographics + + + | Address | [address] | | | [place] [address] | + + + | Home Phone [...] Team Providers + +------+ + | Care Web Marketing Assistant Name | Role | Phone | + [...] 2016 | | CON[address] | MD Nu[address] | | | | | [place] | [address] | | | | | [place], [place] | [place] | | | | | [address] | [address] | | | | | [phone] | [phone] | | | | | | | [...] [place] | | | | | | [place] [address] | | | | | | [phone] | | | | | | | | +--------+ + + + + | 03/13/ | Office | Neurology | Veronica, | | | 2019 | Visit | | [address] | | | | | [address] [place], | | | | | | [place] [address] | | | | | | [phone] | | | | | | | [...] | | | Grade 1 diastolic abnormality, Neligh visually estimates LVEF 65-70%. | | | [...] Grade 1 | | | diastolic abnormality, Neligh visually estimates LVEF 65-70%. Mild | | [...] pressures of 0-5mmHg. MEASUREMENTS | | | Automotive Technology Instructor: DEMARCO Authenticated by: Allen Grant | | | DO Report Date/Time: -- [id number] | | + + + + + | Procedure Note | + + | Eldon, Rad Conversion - 01/05/2019 8:26 PM PDT Patient Name: Yonny Bell of | | : 1945 Performing Physician: Allen Grant | | DO INDICATIONS c | | va CONCLUSIONS 1. See Dictation. 2. Mild concentric LVH, systolic function | | NML, Grade 1 diastolic abnormality, Neligh visually estimates LVEF 65-70%. Mild LAE. | [...] venous pressures of 0-5mmHg. | | MEASUREMENTS Automotive Technology Instructor: HERLINDAuthenticated by: Allen Morris | | Date/Time: -- [id number] IMPRESSION: 1. See Dictation. 2. Mild concentric | | LVH, systolic function NML, Grade 1 diastolic abnormality, Neligh visually estimates | | LVEF 65-70%. Mild [...] | |MEASUREMENTS | | | | | |Automotive Technology Instructor: | |Authenticated by: Allen Grant DO | |Report Date/Time: -- [id number] | | | |IMPRESSION: | |1. See Dictation. 2. Mild concentric LVH, systolic function NML, Grade 1 diastolic abnorma lity, Neligh visually estimates LVEF 65-70%. Mild LAE. RA [...]
--- OUTSIDE RECORDS SUMMARY | ~2019-12-22 | XMS | Encounter Summary ---
Demographics + + + | Address | [address] | | | [place] [address] | + + + | Home Phone | | + + + | Preferred Language | Unknown | + + + | Marital Status | Single | + + + | Rastafari Affiliation | [id number] | + + + | Race | Unknown | + + + | Ethnic Group | Unknown | + + + Author + + + | Author | [facility] | | | and [place] | + + + | Organization | [facility] [...] Team Providers + +------+ + | Care Receiving Operator Name | Role | Phone | [...] | | [address] | [place] [address] | | | | | [place] | [phone] | | | | | [address] | | | | | | [phone] | | | +--------+ + + + [...] to work through the appeals process. Kalani Kellye Is updated at t his time. elephone Natalia harris - Milla Brooks - 02/21/2014 11:08 AM PDTPatient returned phone callClhoé merlos signed by Milla Brooks at 02/21/2014 [...] know that he completed his MRI's at [facility] on 01/30/14Electronically s igned by Milla Brooks [...] [place] | | | | | | [place] [address] | | | | | | [phone] | | | | | | | | +--------+ + + + + | 03/13/ | Office | Neurology | Veronica, | | | 2019 | Visit | | [address] | | | | | [address] [place], | | | | | | [place] [address] | | | | | | [phone] | | | | | | | | +--------+ + + + + documented as of this encounter Visit Diagnoses Not on filedocumented in this encounter"
--- OUTSIDE RECORDS SUMMARY | ~2019-12-22 | XMS | Encounter Summary ---
Demographics + + + | Address | [address] | | | [place] [address] | + + + | Home Phone [...] Author + + + | Author | [facility] [employer] [facility] | + + + | Organization | [facility] | + + + | Address | Unknown | + + + | Phone | Unavailable | + + + Support + + +---------+ + | Name | Relationship | Address | Phone | + + +---------+ + | Gautam Ray | ECON | Unknown | | + + +---------+ + Care Team Providers + +------+ + | Care Outdoor Adventure Leader Name | Role | Phone | + [...] [address] | | | | | | [place], [place] | | | | | | [address] | | | +--------+ + + + [...]
--- OUTSIDE RECORDS SUMMARY | ~2019-12-22 | XMS | Encounter Summary ---
Demographics + + + | Address | [address] | | | [place] [address] | + + + | Home Phone | | + + + | Preferred Language | Unknown | + + + | Marital Status | Single | + + + | Yazidism Affiliation | [id number] | + + + | Race | Unknown | + + + | Ethnic Group | Unknown | + + + Author + + + | Author | [facility] | | | and [place] | + + + | Organization | [facility] | | [...] Team Providers + +------+ + | Care Coordinator Of Online Programs Name | Role | Phone | + [...] [address] | | | | | [place] [address] | | | | | | [phone] | | | +--------+ + + + [...] some recommendations and the plan of care [facility] forward for this patient. Please call: ELMA [...] | | | | | [address] [facility] | | | | | | [place] [address] | | | | | | [phone] | | | | | | | | +--------+ + + + + | 03/13/ | Office | Neurology | Veronica, | | | 2019 | Visit | | [address] | | | | | [address] [place], | | | | | | [place] [address] | | | | | | [phone] | | | | | | | | +--------+ + + + + documented as of this encounter Visit Diagnoses Not on filedocumented in this encounter"
--- OUTSIDE RECORDS SUMMARY | ~2019-12-22 | XMS | Encounter Summary ---
Demographics + + + | Address | [address] | | | [place] [address] | + + + | Home Phone [...] Team Providers + +------+ + | Care Service Employee Name | Role | Phone | + [...] [place] | | | | | | [place] | | | | | | [address] | | | | | | [phone] | | | +--------+ + + + [...] | | | | | [address] [facility] | | | | | | [place] [address] | | | | | | [phone] | | | | | | | | +--------+ + + + + | 03/13/ | Office | Neurology | Veronica, | | | 2019 | Visit | | [address] | | | | | [address] [place], | | | | | | [place] [address] | | | | | | [phone] | | | | | | | | +--------+ + + + + documented as of this encounter Visit Diagnoses Not on filedocumented in this encounter"
--- OUTSIDE RECORDS SUMMARY | ~2019-12-22 | XMS | Encounter Summary ---
Demographics + + + | Address | [address] | | | [place] [address] | + + + | Home Phone | | + + + | Preferred Language | Unknown | + + + | Marital Status | Single | + + + | Mosque Affiliation | 1041 | + + + | Race | Unknown | + + + | Ethnic Group | Unknown | + + + Author + + + | Author | [facility] | | | and [place] | + + + | Organization | [facility] | | [...] Team Providers + +------+ + | Care Mechanical Service Specialist Name | Role | Phone [...] [place] | | | | | | [address] | | | | | | [phone] | | | +--------+ + + + [...] | | | | | | [address] | | | | | | [place] [address] | | | | | | [phone] | | | | | | | | +--------+ + + + + | 03/13/ | Office | Neurology | Veronica, | | | 2019 | Visit | | [address] | | | | | | [address] [place], | | | | | | [place] [address] | | | | | | [phone] | | | | | | | | +--------+ + + + + documented as of this encounter Visit Diagnoses Not on filedocumented in this encounter"
--- OUTSIDE RECORDS SUMMARY | ~2019-12-22 | XMS | Encounter Summary ---
Demographics + + + | Address | [address] | | | [place] [address] | + + + | Home Phone [...] Team Providers + +------+ + | Care Mid Level Net Developer Name | Role | Phone | + +------+ + | Dominic Carlin MD | PCP | | + +------+ + Reason for Visit + + + | Reason | Comments | + + + | Neck Pain | | + + + Encounter Details +--------+ + + + + | Date | Type | Department | Care Team | Description | +--------+ + + + + | 04/27/ | Emergency | [facility] | Jaswant Johnson | Intractable | | 2019 | | [facility] | Ryan Lott MD | headache, | | | | CENTER [address] | [address] | unspecified | | | | [place], [place] | [place], [place] | chronicity pattern, | | | | [address] | [id number] | unspecified headache | | | | [phone] | | type (Primary Dx); | | | | | | Cervical pain (neck) | +--------+ + + + + Social [...] + + + | Blood Pressure | 174/89 | 04/27/2019 8:26 AM | | | | | PST | | + + + + + | Pulse | 75 | 04/27/2019 8:26 AM | | | | | PST | | + + + + + | Temperature | 36.5 C (97.7 F) | 04/27/2019 8:26 AM | | | | | PST | | + + + + + | Respiratory Rate | 18 | 04/27/2019 8:26 AM | | | | | PST | | + + + + + | Oxygen Saturation | 100% | 04/27/2019 8:26 AM | | | | | PST | | + + + + + | Inhaled Oxygen | - | - | | | Concentration | | | | + + + + + | Weight | - | - | | + + + + + | Height | - | [...] + documented as of this encounter Discharge Instructions Instructions Jaswant Johnson MD - 04/27/2019Return for severe worsening dizzin ess weakness nausea vomiting or other worsening symptoms. Please follow-up with your [facility] care physician. documented in this encounter Medications at Time of [...] tablets by | 45 | 0 | 20 | | | butalbital-acetamino | mouth every [...] + + documented as of this encounter ED Notes Jaswant Johnson MD - 04/27/2019 11:37 AM PSTFormatting of this note might be d ifferent from the original. [facility] Department Encounter Note [address] [place] [id number] PCP:Dominic Carlin MD [phone] eMERGENCY dEPARTMENT eNCOUnter CHIEF COMPLAINT Chief Complaint Patient presents with Neck Pain TRIAGE ED Triage Notes, ED Triage Notes Armand Roberts RN 04/27/2019 08:31 Neck pain and head pain x about 2 weeks increasing last couple days. Hx of neck surgery a c thomasple years ago. HPI [facility] is a 74 y.o. male who presents patient with significant headache and neck pain for the last 2 to 3 weeks. He states it is worsened over the last week. He has s evere pain in the back of the head currently. He is here for further evaluation. Patient with posterior occipital pain he is awake and alert answering questions appropriate ly. PAST MEDICAL HISTORY Past Medical History: Diagnosis Date High blood pressure High cholesterol Hyperlipidemia Hypertension Stroke (HCC) SURGICAL HISTORY Past Surgical History: Procedure Laterality Date APPENDECTOMY CARPAL TUNNEL RELEASE Both Hands 12/28 CERVICAL SPINE SURGERY N/A 07/26/2014 Procedure: C3-4, C4-5, C5-6, C6-7 Anterior Cervical Discectomy Fusion; Surgeon: Wes Elmore am, MD; Location: [facility] MAIN OR OTHER SURGICAL HISTORY UNLISTED PROCEDURE ARTHROSCOPY - Bilateral Rotator Cuff ROTATOR CUFF REPAIR Bilateral SPINE SURGERY 2009 Cervical Surgery TONSILLECTOMY AND ADENOIDECTOMY 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 aspirin 81 MG tablet Take 81 mg by mouth daily. atorvaSTATin (LIPITOR) 80 MG tablet Take 80 mg by mouth daily. clopidogrel (PLAVIX) 75 mg tablet Take 1 tablet by mouth daily. lisinopril (PRINIVIL, ZESTRIL) 10 mg tablet Take 10 mg by mouth daily. meclizine (ANTIVERT) 25 mg tablet Take 25 mg by mouth 3 times daily as needed. ALLERGIES No Known Allergies FAMILY HISTORY Family History Problem Relation Age of Onset Heart defect Father Diabetes, NIDDM Father Heart defect Brother Diabetes Brother Kidney disease Brother SOCIAL HISTORY Social History Socioeconomic History Marital status: Single Spouse name: Not on file Number of children: Not on file Years of education: Not on file Highest education level: Not on file Tobacco Use Smoking status: Never Smoker Smokeless tobacco: Never Used Substance and Sexual Activity Alcohol use: Yes Comment: 1 drink every 2 weeks Drug use: No Comment: Drug use: No REVIEW OF SYSTEMS Please see HPI, All systems negative except as marked. Twelve point review of system comp leted my me. PHYSICAL EXAM VITAL SIGNS: Temp: 36.5 C (97.7 F) Pulse: 75 Resp: 18 SpO2: 100 % BP: 174/89 Constitutional: Well developed, Well nourished, Non-toxic appearance. Severe distress sec ondary to posterior rear occipital pain. HENT: Normocephalic, Atraumatic, Bilateral external ears normal, Oropharynx moist, No oral exudates, Nose normal. Neck- Normal range of motion, No tenderness, Supple, No stridor. Eyes: PERRL, EOMI, Conjunctiva normal, No discharge. Respiratory: Normal breath sounds, No respiratory distress, No wheezing, No chest tenderne ss. Cardiovascular: Normal heart rate, Normal rhythm, No murmurs, No rubs, No gallops. GI: Bowel sounds normal, Soft, No tenderness, No masses, No pulsatile masses. Musculoskeletal: Intact distal pulses, No edema, No tenderness, No cyanosis, No clubbing. Good range of motion in all major joints. No tenderness to palpation or major deformities no lidia. Neurologic: Alert & oriented x 3, Normal motor function, Normal sensory function, No focal deficits noted, no facial assymetry noted. Equal administrative processor in all extremities RADIOLOGY Ct Angiogram Head Neck W Contrast Result Date: 04/27/2019 CT ANGIOGRAM HEAD NECK W CONTRAST 04/27/2019 9:55 AM HISTORY: Head and neck pain. COMPARISO N: Multiple priors. PROTOCOL: Axial CT images of the head were obtained precontrast. Thin se ction axial CTA images of the head and neck were acquired after 130 mL Omnipaque 350. Park l and sagittal reformations were obtained. CT HEAD FINDINGS: A large region of encephalomala arianna and gliosis is in the right parietal and temporal lobes within the MCA territory. There is a small region of encephalomalacia and gliosis in the left occipital lobe and left wood grainer ior temporal lobe within the BUSINESS LIAISON OFFICER territory. An old small lacunar infarct is in the right cau date head. There is moderate age-related brain volume loss with enlargement of the ventricle s, cisterns, and sulci. A mild amount of periventricular white matter hypodensity are presen t, consistent with small vessel ischemic disease. The brain parenchyma demonstrates no evide nce for acute infarct, mass lesion, or hemorrhage. The brainstem is unremarkable. The cerebe llum is normal. The pituitary gland is grossly normal. Bilateral ocular prostheses are noted . Minimal mucosal thickening are in the left frontal, bilateral ethmoid, bilateral maxillary , and right sphenoid sinuses. Mastoid air cells are normal. Calvarium, temporal bones, and s kull base structures are unremarkable. CTA HEAD FINDINGS: Right Carotid: Moderate atheroscle rosis is seen of the cavernous and supraclinoid segments with 50% stenosis in the cavernous segment. There is normal branching of the MCA and BARBIE. Left Carotid: Moderate atherosclerosi s is seen of the cavernous and supraclinoid segments with 50% stenosis in the supraclinoid s egment. There is normal branching of the MCA and BARBIE. The A1 segment is mildly hypoplastic. Vertebrobasilar: The bilateral vertebral arteries and basilar artery are patent. The right v ertebral artery is dominant, and the left vertebral artery is moderately hypoplastic. The PC As are normal. CTA NECK FINDINGS: Aorta and Branches: There is mild atherosclerosis of the a amanda extending into the branches. The ascending thoracic aorta is ectatic measuring 4.2 cm. A bovine arch is present, a normal variant. Right Carotid: There is extensive atherosclerosi s of the carotid bulb extending into the proximal ICA with about 85% stenosis in the proxima l ICA (image 61). The ECA is patent. Left Carotid: Moderate atherosclerosis is noted of the carotid bulb extending into the proximal ICA with about 50% stenosis of the proximal ICA (im age 60). The ECA is patent. Vertebrals: Mild focal atherosclerosis are noted of the bilatera l V1 segments proximally. The left vertebral artery is mildly hypoplastic. The bilateral aisha tebral arteries are patent otherwise. The nasopharynx, oropharynx, epiglottis, hypopharynx, and larynx are normal. The oral cavity is unremarkable. The parapharyngeal, retropharyngeal, and sales trainer spaces are normal. The parotid glands and submandibular glands are normal. S everal nodules are noted of the thyroid with the largest on the right side measuring 1.3 cm. No enlarged lymph nodes are visualized of the neck. There is hardware for anterior fusion f rom C3 through C7. Moderate degenerative changes are present of the anterior atlantoaxial jose a int. Posterior spurring are at multiple levels leading to mild to moderate central stenoses. Prominent multilevel facet and uncovertebral hypertrophy are observed leading to extensive neural foraminal canal stenoses. The upper chest shows no acute findings. No acute intracranial findings. Old right MCA territory infarct, old small left BUSINESS LIAISON OFFICER territo ry infarct, old small lacunar infarct in right caudate head. Right intracranial carotid edmund ry: Moderate atherosclerosis is seen of the cavernous and supraclinoid segments with 50% caleb nosis in the cavernous segment. There is normal branching of the MCA and BARBIE. Left intracran ial carotid artery: Moderate atherosclerosis is seen of the cavernous and supraclinoid segme nts with 50% stenosis in the supraclinoid segment. There is normal branching of the MCA and BARBIE. The A1 segment is mildly hypoplastic. Right neck carotid: There is extensive atheroscle rosis of the carotid bulb extending into the proximal ICA with about 85% stenosis in the pro ximal ICA (image 61). The ECA is patent. Left neck carotid: Moderate atherosclerosis is note d of the carotid bulb extending into the proximal ICA with about 50% stenosis of the proxima l ICA (image 61). The ECA is patent. Several nodules of thyroid measuring up to 1.3 cm on th e right side. Dictated and Signed by: Lloyd Sher MD Electronically signed: 04/27/2019 11: 01 AM LAB Labs Reviewed CBC WITH DIFFERENTIAL - Abnormal; Notable for the following components: Result Value % Lymphocytes 7.8 (*) % Eosinophils 7.3 (*) Absolute Lymphocytes 0.55 (*) Absolute Eosinophils 0.51 (*) All other components within normal limits LIPASE - Abnormal; Notable for the following components: Lipase 61 (*) All other components within normal limits TROPONIN I - Normal COMPREHENSIVE METABOLIC PANEL ED COURSE & MEDICAL DECISION MAKING Pertinent Labs & Imaging studies reviewed. (See chart for details) Nursing notes reviewed. Patient otherwise stable at this time. Patient with acute episode of headache and neck pain. CT of the head and neck does show so me chronic cerebrovascular disease no sign of new stroke significant old stroke appearance. Patient does not appear to be in acute distress. Headache controlled here in the emergency room. I am giving him prescription for butalbital and Phenergan. He is encouraged to retu rn for his worsening symptoms. FINAL IMPRESSION 1. Intractable headache, unspecified chronicity pattern, unspecified headache type Acute 2. Cervical pain (neck) Acute Portions of this chart may have been created with [employer] voice recognition software. Occasi onal wrong-word or sound-alike substitutions may have occurred due to the inherent antonio itations of voice recognition software. Please read the chart carefully and recognize, using context, where these substitutions have occurred Jaswant Johnson MD 04/27/19 1148 Romel Howe RN - 04/27/2019 8:26 AM PSTNeck pain and head pain x about 2 weeks increasing last cou ple days. Hx of neck surgery a couple years ago. documented in this encounter Plan of Treatment [...] [facility] | | | | | | [facility] | | | | | | [place] [address] | | | | | | [phone] | | | | | | | | +--------+ + + + + | 03/13/ | Office | Neurology | Veronica, | | | 2019 | Visit | | HALI Adams [address] [place], | | | | | | [place] [address] | | | | | | [phone] | | | | | | | | +--------+ + + + + documented as of this encounter Procedures + +--------+ + + + | Procedure Name | Priori | Date/Time | Associated Diagnosis | Comments | | | ty | | | | + +--------+ + + + | CT ANGIOGRAM HEAD | STAT | 04/27/2019 | | Results for this | | NECK | | 10:05 AM | | procedure are in the | | | | PST | | results section. | + +--------+ + + + | TROPONIN I | STAT | 04/27/2019 | | Results for this | | | | 8:53 AM | | procedure are in the | | | | PST | | results section. | + +--------+ + + + | CBC WITH | STAT | 04/27/2019 | | Results for this | | DIFFERENTIAL | | 8:53 AM | | procedure are in the | | | | PST | | results section. | + +--------+ + + + | LIPASE | STAT | 04/27/2019 | | Results for this | | | | 8:53 AM | | procedure are in the | | | | PST | | results section. | + +--------+ + + + | COMPREHENSIVE | STAT | 04/27/2019 | | Results for this | | METABOLIC PANEL | | 8:53 AM | | procedure are in the | | | | PST | | results section. | + +--------+ + + + documented in this encounter Results CT Angiogram Head Neck w Contrast (04/27/2019 10:05 AM PST) + + | Specimen | + + | | + + + + + | Impressions | Performed At | + + + | No acute intracranial findings. Old right MCA territory infarct, | [facility] | | old small left BUSINESS LIAISON OFFICER territory infarct, old small lacunar infarct in | | | right caudate head. Right intracranial carotid artery: Moderate | | | atherosclerosis is seen of the cavernous and supraclinoid segments | | | with 50% stenosis in the cavernous segment. There is normal branching | | | of the MCA and BARBIE. Left intracranial carotid artery: Moderate | | | atherosclerosis is seen of the cavernous and supraclinoid segments | | | with 50% stenosis in the supraclinoid segment. There is normal | | | branching of the MCA and BARBIE. The A1 segment is mildly hypoplastic. | | | Right neck carotid: There is extensive atherosclerosis of the | | | carotid bulb extending into the proximal ICA with about 85% stenosis | | | in the proximal ICA (image 61). The ECA is patent. Left neck | | | carotid: Moderate atherosclerosis is noted of the carotid bulb | | | extending into the proximal ICA with about 50% stenosis of the | | | proximal ICA (image 61). The ECA is patent. Several nodules of | | | thyroid measuring up to 1.3 cm on the right side. Dictated and | | | Signed by: Lloyd Sher MD Electronically signed: 04/27/2019 11:01 | | | AM | | + + + + + + | Narrative | Performed At | + + + | CT ANGIOGRAM HEAD NECK W CONTRAST 04/27/2019 9:55 AM HISTORY: | [facility] | | Head and neck pain. COMPARISON: Multiple priors. PROTOCOL: | | | Axial CT images of the head were obtained precontrast. Thin section | | | axial CTA images of the head and neck were acquired after 130 mL | | | Omnipaque 350. Coronal and sagittal reformations were obtained. | | | CT HEAD FINDINGS: A large region of encephalomalacia and gliosis is | | | in the right parietal and temporal lobes within the MCA territory. | | | There is a small region of encephalomalacia and gliosis in the left | | | occipital lobe and left posterior temporal lobe within the BUSINESS LIAISON OFFICER | | | territory. An old small lacunar infarct is in the right caudate head. | | | There is moderate age-related brain volume loss with enlargement of | | | the ventricles, cisterns, and sulci. A mild amount of periventricular | | | white matter hypodensity are present, consistent with small vessel | | | ischemic disease. The brain parenchyma demonstrates no evidence for | | | acute infarct, mass lesion, or hemorrhage. The brainstem is | | | unremarkable. The cerebellum is normal. The pituitary gland is | | | grossly normal. Bilateral ocular prostheses are noted. Minimal | | | mucosal thickening are in the left frontal, bilateral ethmoid, | | | bilateral maxillary, and right sphenoid sinuses. Mastoid air cells | | | are normal. Calvarium, temporal bones, and skull base structures | | | are unremarkable. CTA HEAD FINDINGS: Right Carotid: Moderate | | | atherosclerosis is seen of the cavernous and supraclinoid segments | | | with 50% stenosis in the cavernous segment. There is normal branching | | | of the MCA and BARBIE. Left Carotid: Moderate atherosclerosis is | | | seen of the cavernous and supraclinoid segments with 50% stenosis in | | | the supraclinoid segment. There is normal branching of the MCA and | | | BARBIE. The A1 segment is mildly hypoplastic. Vertebrobasilar: The | | | bilateral vertebral arteries and basilar artery are patent. The right | | | vertebral artery is dominant, and the left vertebral artery is | | | moderately hypoplastic. The senior animal trainer are normal. CTA NECK FINDINGS: | | | Aorta and Branches: There is mild atherosclerosis of the aorta | | | extending into the branches. The ascending thoracic aorta is ectatic | | | measuring 4.2 cm. A bovine arch is present, a normal variant. | | | Right Carotid: There is extensive atherosclerosis of the carotid bulb | | | extending into the proximal ICA with about 85% stenosis in the | | | proximal ICA (image 61). The ECA is patent. Left Carotid: | | | Moderate atherosclerosis is noted of the carotid bulb extending into | | | the proximal ICA with about 50% stenosis of the proximal ICA (image | | | 61). The ECA is patent. Vertebrals: Mild focal atherosclerosis | | | are noted of the bilateral V1 segments proximally. The left vertebral | | | artery is mildly hypoplastic. The bilateral vertebral arteries are | | | patent otherwise. The nasopharynx, oropharynx, epiglottis, | | | hypopharynx, and larynx are normal. The oral cavity is unremarkable. | | | The parapharyngeal, retropharyngeal, and sales trainer spaces are | | | normal. The parotid glands and submandibular glands are normal. | | | Several nodules are noted of the thyroid with the largest on the right | | | side measuring 1.3 cm. No enlarged lymph nodes are visualized of the | | | neck. There is hardware for anterior fusion from C3 through C7. | | | Moderate degenerative changes are present of the anterior | | | atlantoaxial joint. Posterior spurring are at multiple levels leading | | | to mild to moderate central stenoses. Prominent multilevel facet and | | | uncovertebral hypertrophy are observed leading to extensive neural | | | foraminal canal stenoses. The upper chest shows no acute findings. | | | | | + + + + + | Procedure Note | + + | [place], Rad Results In - 04/27/2019 11:[address] ANGIOGRAM HEAD NECK W CONTRAST | | 04/27/2019 9:55 AMHISTORY: Head and neck pain.COMPARISON: Multiple priors.PROTOCOL: | | Axial CT images of the head were obtained precontrast. Thin sectionaxial CTA images of | | the head and neck were acquired after 130 mL Omnipaque 350.Coronal and sagittal | | reformations were obtained.CT HEAD FINDINGS:A large region of encephalomalacia and | | gliosis is in the right parietal andtemporal lobes within the MCA territory. There is a | | small region ofencephalomalacia and gliosis in the left occipital lobe and left | | posteriortemporal lobe within the BUSINESS LIAISON OFFICER territory. An old small lacunar infarct is in | | theright caudate head. There is moderate age-related brain volume loss withenlargement | | of the ventricles, cisterns, and sulci. A mild amount ofperiventricular white matter | | hypodensity are present, consistent with smallvessel ischemic disease. The brain | | parenchyma demonstrates no evidence for acuteinfarct, mass lesion, or hemorrhage. The | | brainstem is unremarkable. Thecerebellum is normal. The pituitary gland is grossly | | normal.Bilateral ocular prostheses are noted. Minimal mucosal thickening are in theleft | | frontal, bilateral ethmoid, bilateral maxillary, and right sphenoidsinuses. Mastoid air | | cells are normal.Calvarium, temporal bones, and skull base structures are | | unremarkable.CTA HEAD FINDINGS:Right Carotid: Moderate atherosclerosis is seen of the | | cavernous andsupraclinoid segments with 50% stenosis in the cavernous segment. There | | isnormal branching of the MCA and BARBIE.Left Carotid: Moderate atherosclerosis is seen of | | the cavernous and supraclinoidsegments with 50% stenosis in the supraclinoid segment. | | There is normalbranching of the MCA and BARBIE. The A1 segment is mildly | | hypoplastic.Vertebrobasilar: The bilateral vertebral arteries and basilar artery are | | patent.The right vertebral artery is dominant, and the left vertebral artery | | ismoderately hypoplastic. The senior animal trainer are normal.CTA NECK FINDINGS:Aorta and Branches: | | There is mild atherosclerosis of the aorta extending intothe branches. The ascending | | thoracic aorta is ectatic measuring 4.2 cm. A bovinearch is present, a normal | | variant.Right Carotid: There is extensive atherosclerosis of the carotid bulb | | extendinginto the proximal ICA with about 85% stenosis in the proximal ICA (image | | 61).The ECA is patent.Left Carotid: Moderate atherosclerosis is noted of the carotid | | bulb extendinginto the proximal ICA with about 50% stenosis of the proximal ICA (image | | 61).The ECA is patent.Vertebrals: Mild focal atherosclerosis are noted of the bilateral | | V1 segmentsproximally. The left vertebral artery is mildly hypoplastic. The | | bilateralvertebral arteries are patent otherwise.The nasopharynx, oropharynx, | | epiglottis, hypopharynx, and larynx are normal. Theoral cavity is unremarkable. The | | parapharyngeal, retropharyngeal, and masticatorspaces are normal. The parotid glands and | | submandibular glands are normal.Several nodules are noted of the thyroid with the | | largest on the right sidemeasuring 1.3 cm. No enlarged lymph nodes are visualized of the | | neck.There is hardware for anterior fusion from C3 through C7. Moderate | | degenerativechanges are present of the anterior atlantoaxial joint. Posterior spurring | | areat multiple levels leading to mild to moderate central stenoses. Prominentmultilevel | | facet and uncovertebral hypertrophy are observed leading to extensiveneural foraminal | | canal stenoses.The upper chest shows no acute findings.IMPRESSION: No acute intracranial | | findings.Old right MCA territory infarct, old small left BUSINESS LIAISON OFFICER territory infarct, old | | smalllacunar infarct in right caudate head.Right intracranial carotid artery: Moderate | | atherosclerosis is seen of thecavernous and supraclinoid segments with 50% stenosis in | | the cavernous segment.There is normal branching of the MCA and BARBIE.Left intracranial | | carotid artery: Moderate atherosclerosis is seen of thecavernous and supraclinoid | | segments with 50% stenosis in the supraclinoidsegment. There is normal branching of the | | MCA and BARBIE. The A1 segment is mildlyhypoplastic.Right neck carotid: There is extensive | | atherosclerosis of the carotid bulbextending into the proximal ICA with about 85% | | stenosis in the proximal ICA(image 61). The ECA is patent.Left neck carotid: Moderate | | atherosclerosis is noted of the carotid bulbextending into the proximal ICA with about | | 50% stenosis of the proximal ICA(image 61). The ECA is patent.Several nodules of thyroid | | measuring up to 1.3 cm on the right side.Dictated and Signed by: Lloyd Sher MD | | Electronically signed: 04/27/2019 11:01 AM | |proximally. The left vertebral artery is mildly hypoplastic. The bilateral | |vertebral arteries are patent otherwise. | | | |The nasopharynx, oropharynx, epiglottis, hypopharynx, and larynx are normal. The | |oral cavity is unremarkable. The parapharyngeal, retropharyngeal, and sales trainer | |spaces are normal. The parotid glands and submandibular glands are normal. | |Several nodules are noted of the thyroid with the largest on the right side | |measuring 1.3 cm. No enlarged lymph nodes are visualized of the neck. | | | |There is hardware for anterior fusion from C3 through C7. Moderate degenerative | |changes are present of the anterior atlantoaxial joint. Posterior spurring are | |at multiple levels leading to mild to moderate central stenoses. Prominent | |multilevel facet and uncovertebral hypertrophy are observed leading to extensive | |neural foraminal canal stenoses. | | | |The upper chest shows no acute findings. | | | |IMPRESSION: | |No acute intracranial findings. | | | |Old right MCA territory infarct, old small left BUSINESS LIAISON OFFICER territory infarct, old small | |lacunar infarct in right caudate head. | | | |Right intracranial carotid artery: Moderate atherosclerosis is seen of the | |cavernous and supraclinoid segments with 50% stenosis in the cavernous segment. | |There is normal branching of the MCA and BARBIE. | | | |Left intracranial carotid artery: Moderate atherosclerosis is seen of the | |cavernous and supraclinoid segments with 50% stenosis in the supraclinoid | |segment. There is normal branching of the MCA and BARBIE. The A1 segment is mildly | |hypoplastic. | | | |Right neck carotid: There is extensive atherosclerosis of the carotid bulb | |extending into the proximal ICA with about 85% stenosis in the proximal ICA | |(image 61). The ECA is patent. | | | |Left neck carotid: Moderate atherosclerosis is noted of the carotid bulb | |extending into the proximal ICA with about 50% stenosis of the proximal ICA | |(image 61). The ECA is patent. | | | |Several nodules of thyroid measuring up to 1.3 cm on the right side. | | | |Dictated and Signed by: lLoyd Sher MD | | Electronically signed: 04/27/2019 11:01 AM | + + + +---------+ + + | Performing | Address | City/State/Zipcode | Phone Number | | Organization | | | | + +---------+ + + | [facility] | | | | + +---------+ + + Troponin I (04/27/2019 8:53 AM PST) + + + + + + | Component | Value | Ref Range | Performed | Pathologist | | | | | At | Signature | + + + + + + | Troponin I | <0.01Comment: | <0.06 ng/mL | [facility] | | | | Comment:Reference | | [facility] | | | | Ranges: 0.00-0.06 = | | MEDICAL | | | | NORMAL >0.06 = | | CENTER - | | | | SUSPICIOUS FOR | | LABORATORY | | | | MYOCARDIAL DAMAGE NOTE: | | | | | | Values greater than | | | | | | 0.78 ng/mL have been | | | | | | shown to be strongly | | | | | | associated with acute | | | | | | myocardial infarction. | | | | | | The [employer] | | | | | | Cardiology (ACC) | | | | | | recommends a decision | | | | | | limit of 0.06 ng/mL for | | | | | | this assay. Results | | | | | | greater than 0.06 can | | | | | | reflect a pre-infarct | | | | | | acute coronary syndrome, | | | | | | but can also reflect | | | | | | myocardial necrosis or | | | | | | injury that is not due | | | | | | to coronary artery | | | | | | disease. Some of these | | | | | | causes are sepsis, | | | | | | hypocolemia, atrial | | | | | | fibrillation, heart | | | | | | failure, pulmonary | | | | | | embolism, myocarditis, | | | | | | myocardial contusion, | | | | | | and renal failure. The | | | | | | diagnosis of myocardial | | | | | | infarction should be | | | | | | based on a combination | | | | | | of the patient's | | | | | | clinical presentation | | | | | | and the clinical | | | | | | laboratory test results | | | | | | (especially serial | | | | | | troponin levels). | | | | + + + + + + + + | Specimen | + + | Blood | + + + + + + + | Performing | Address | City/State/Zipcode | Phone Number | | Organization | | | | + + + + + | [facility] | [address] | [place] | [phone] | | [facility] | | [address] | | | - LABORATORY | | | | + + + + + Lipase (04/27/2019 8:53 AM PST) + + + + + + | Component | Value | Ref Range | Performed | Pathologist | | | | | At | Signature | + + + + + + | Lipase | 61 (H)Comment: New | 12 - 53 U/L | [facility] | | | | method in use as of | | [facility] | | | | July 13, 2018. Check | | MEDICAL | | | | reference range for | | CENTER - | | | | changes.Some analytes | | LABORATORY | | | | show significant | | | | | | variation from the | | | | | | previous method.It may | | | | | | be necessary to set a | | | | | | new baseline for this | | | | | | analyte. | | | | + + + + + + + + | Specimen | + + | Blood | + + + + + + + | Performing | Address | City/State/Zipcode | Phone Number | | Organization | | | | + + + + + | [facility] | [address] | [place] | [phone] | | [facility] | | [address] | | | - LABORATORY | | | | + + + + + Comprehensive Metabolic Panel (04/27/2019 8:53 AM PST) + +-------+ + + + | Component | Value | Ref Range | Performed | Pathologist | | | | | At | Signature | + +-------+ + + + | Na | 139 | 136 - 145 | [facility] | | | | | mmol/L | [facility] | | | | | | MEDICAL | | | | | | CENTER - | | | | | | LABORATORY | | + +-------+ + + + | K | 4.1 | 3.4 - 5.1 | [facility] | | | | | mmol/L | [facility] | | | | | | MEDICAL | | | | | | CENTER - | | | | | | LABORATORY | | + +-------+ + + + | Cl | 104 | 98 - 107 mmol/L | [facility] | | | | | | [facility] | | | | | | MEDICAL | | | | | | CENTER - | | | | | | LABORATORY | | + +-------+ + + + | CO2 | 28 | 20 - 31 mmol/L | [facility] | | | | | | [facility] | | | | | | MEDICAL | | | | | | CENTER - | | | | | | LABORATORY | | + +-------+ + + + | Anion Gap | 7 | 3 - 16 mmol/L | [facility] | | | | | | [facility] | | | | | | MEDICAL | | | | | | CENTER - | | | | | | LABORATORY | | + +-------+ + + + | Glucose | 92 | 60 - 106 mg/dL | [facility] | | | | | | [facility] | | | | | | MEDICAL | | | | | | CENTER - | | | | | | LABORATORY | | + +-------+ + + + | BUN | 15 | 9 - 23 mg/dL | [facility] | | | | | | [facility] | | | | | | MEDICAL | | | | | | CENTER - | | | | | | LABORATORY | | + +-------+ + + + | Creatinine | 0.88 | 0.70 - 1.30 | [facility] | | | | | mg/dL | [facility] | | | | | | MEDICAL | | | | | | CENTER - | | | | | | LABORATORY | | + +-------+ + + + | eGFR, | >60 | >=60 | [facility] | | | non- | | mL/min/1.73m2 | [facility] | | | [facility] | | | MEDICAL | | | | | | CENTER - | | | | | | LABORATORY | | + +-------+ + + + | Calcium | 9.6 | 8.7 - 10.4 | [facility] | | | | | mg/dL | [facility] | | | | | | MEDICAL | | | | | | CENTER - | | | | | | LABORATORY | | + +-------+ + + + | Albumin | 4.8 | 3.2 - 4.8 g/dL | [facility] | | | | | | [facility] | | | | | | MEDICAL | | | | | | CENTER - | | | | | | LABORATORY | | + +-------+ + + + | Bilirubin | 1.2 | 0.3 - 1.2 mg/dL | [facility] | | | Total | | | [facility] | | | | | | MEDICAL | | | | | | CENTER - | | | | | | LABORATORY | | + +-------+ + + + | Total | 7.9 | 5.7 - 8.2 g/dL | [facility] | | | Protein | | | [facility] | | | | | | MEDICAL | | | | | | CENTER - | | | | | | LABORATORY | | + +-------+ + + + | AST | 32 | 0 - 34 U/L | [facility] | | | | | | [facility] | | | | | | MEDICAL | | | | | | CENTER - | | | | | | LABORATORY | | + +-------+ + + + | ALT | 30 | 10 - 49 U/L | [facility] | | | | | | [facility] | | | | | | MEDICAL | | | | | | CENTER - | | | | | | LABORATORY | | + +-------+ + + + | Alkaline | 84 | 46 - 116 U/L | [facility] | | | Phosphatase | | | [facility] | | | | | | MEDICAL | | | | | | CENTER - | | | | | | LABORATORY | | + +-------+ + + + | Globulin | 3.1 | 2.1 - 3.8 g/dL | [facility] | | | | | | [facility] | | | | | | MEDICAL | | | | | | CENTER - | | | | | | LABORATORY | | + +-------+ + + + | Albumin/Stacey | 1.5 | 0.8 - 1.9 | [facility] | | | bulin Ratio | | | [facility] | | | | | | MEDICAL | | | | | | CENTER - | | | | | | LABORATORY | | + +-------+ + + + | BUN/Creatin | 17.0 | | [facility] | | | ine Ratio | | | [facility] | | | | | | MEDICAL | | | | | | CENTER - | | | | | | LABORATORY | | + +-------+ + + + + + | Specimen | + + | Blood | + + + + + + + | Performing | Address | City/State/Zipcode | Phone Number | | Organization | | | | + + + + + | [facility] | [address] | [place] | [phone] | | [facility] | | [address] | | | - LABORATORY | | | | + + + + + CBC with Differential (04/27/2019 8:53 AM PST) + + + + + + | Component | Value | Ref Range | Performed | Pathologist | | | | | At | Signature | + + + + + + | White Blood | 7.0 | 4.0 - 11.0 K/uL | [facility] | | | Cells | | | [facility] | | | | | | MEDICAL | | | | | | CENTER - | | | | | | LABORATORY | | + + + + + + | Red Blood | 5.31 | 4.30 - 5.70 | [facility] | | | Cells | | M/uL | [facility] | | | | | | MEDICAL | | | | | | CENTER - | | | | | | LABORATORY | | + + + + + + | Hemoglobin | 16.0 | 13.5 - 18.0 | [facility] | | | | | g/dL | [facility] | | | | | | MEDICAL | | | | | | CENTER - | | | | | | LABORATORY | | + + + + + + | Hematocrit | 49.0 | 40.0 - 51.0 % | [facility] | | | | | | [facility] | | | | | | MEDICAL | | | | | | CENTER - | | | | | | LABORATORY | | + + + + + + | MCV | 92.3 | 83.0 - 101.0 fL | [facility] | | | | | | [facility] | | | | | | MEDICAL | | | | | | CENTER - | | | | | | LABORATORY | | + + + + + + | MCH | 30.1 | 28.0 - 35.0 pg | [facility] | | | | | | [facility] | | | | | | [facility]ICAL | | | | | | CENTER - | | | | | | LABORATORY | | + + + + + + | MCHC | 32.7 | 32.0 - 36.0 | [facility] | | | | | g/dL | [facility] | | | | | | MEDICAL | | | | | | CENTER - | | | | | | LABORATORY | | + + + + + + | RDW-CV | 13.2 | <15.0 % | [facility] | | | | | | [facility] | | | | | | MEDICAL | | | | | | CENTER - | | | | | | LABORATORY | | + + + + + + | RDW-SD | 44.8 | 35.1 - 46.3 fL | [facility] | | | | | | [facility] | | | | | | [facility] | | | | | | CENTER - | | | | | | LABORATORY | | + + + + + + | Platelet | 240 | 140 - 440 K/uL | [facility] | | | Count | | | [facility] | | | | | | MEDICAL | | | | | | CENTER - | | | | | | LABORATORY | | + + + + + + | MPV | 9.4 | 6.5 - 12.4 fL | [facility] | | | | | | [facility] | | | | | | MEDICAL | | | | | | CENTER - | | | | | | LABORATORY | | + + + + + + | % | 77.5 | 45.0 - 82.0 % | [facility] | | | Neutrophils | | | [facility] | | | | | | MEDICAL | | | | | | CENTER - | | | | | | LABORATORY | | + + + + + + | % | 7.8 (L) | 20.0 - 45.0 % | [facility] | | | Lymphocytes | | | [facility] | | | | | | MEDICAL | | | | | | CENTER - | | | | | | LABORATORY | | + + + + + + | % Monocytes | 6.4 | 4.0 - 12.0 % | [facility] | | | | | | [facility] | | | | | | MEDICAL | | | | | | CENTER - | | | | | | LABORATORY | | + + + + + + | % | 7.3 (H) | 0.0 - 5.0 % | [facility] | | | Eosinophils | | | [facility] | | | | | | MEDICAL | | | | | | CENTER - | | | | | | LABORATORY | | + + + + + + | % Basophils | 0.6 | 0.0 - 1.0 % | [facility] | | | | | | [facility] | | | | | | MEDICAL | | | | | | CENTER - | | | | | | LABORATORY | | + + + + + + | % Immature | 0.4 | 0.0 - 0.4 % | [facility] | | | Granulocyte | | | [facility] | | | s | | | MEDICAL | | | | | | CENTER - | | | | | | LABORATORY | | + + + + + + | Absolute | 5.44 | 1.80 - 8.50 | [facility] | | | Neutrophils | | K/uL | [facility] | | | | | | MEDICAL | | | | | | CENTER - | | | | | | LABORATORY | | + + + + + + | Absolute | 0.55 (L) | 0.60 - 3.20 | [facility] | | | Lymphocytes | | K/uL | [facility] | | | | | | MEDICAL | | | | | | CENTER - | | | | | | LABORATORY | | + + + + + + | Absolute | 0.45 | 0.00 - 1.00 | [facility] | | | Monocytes | | K/uL | [facility] | | | | | | MEDICAL | | | | | | CENTER - | | | | | | LABORATORY | | + + + + + + | Absolute | 0.51 (H) | 0.00 - 0.40 | [facility] | | | Eosinophils | | K/uL | [facility] | | | | | | MEDICAL | | | | | | CENTER - | | | | | | LABORATORY | | + + + + + + | Absolute | 0.04 | 0.00 - 0.10 | [facility] | | | Basophils | | K/uL | [facility] | | | | | | MEDICAL | | | | | | CENTER - | | | | | | LABORATORY | | + + + + + + | Absolute | 0.03 | 0.00 - 0.03 | [facility] | | | Immature | | K/uL | [facility] | | | Granulocyte | | | MEDICAL | | | s | | | CENTER - | | | | | | LABORATORY | | + + + + + + | % nRBC | 0 | 0 - 2 per 100 | [facility] | | | | | WBCs | [facility] | | | | | | MEDICAL | | | | | | CENTER - | | | | | | LABORATORY | | + + + + + + | Absolute | 0.00 | 0.00 - 0.01 | [facility] | | | nRBC | | K/uL | [facility] | [...] | [facility] | [address] | [place] | [phone] | | [facility] | | [address] | | | - LABORATORY | | | | + + + + + documented in this encounter Visit Diagnoses + + | Diagnosis | + + | Intractable headache, unspecified chronicity pattern, unspecified headache type - | | Primary | + + | Cervical pain (neck) Cervicalgia | + + documented in this encounter Administered Medications + +--------+ +-------+------+------+ | Medication Order | MAR | Action | Dose | Rate | Site | | | Action | Date | | | | + +--------+ +-------+------+------+ | diphenhydrAMINE (BENADRYL) | Given | 04/27/20 | 25 mg | | | | injection 25 mg 25 mg, | | 19 10:10 | | | | | Intravenous, ONCE, [facility] 04/27/19 | | AM PST | | | | | at 1005, For 1 dose | | | | | | + +--------+ +-------+------+------+ +---+---+ | | | +---+---+ + +-------+ +---------+---+---+ | iohexol (OMNIPAQUE 350) 350 | Given | 04/27/20 | 130 mLs | | | | mg/mL injection 130 mL 130 mL, | | 19 10:04 | | | | | Intravenous, ONCE PRN, Other, For | | AM PST | | | | | CT Scan, Starting [facility] 04/27/19 | | | | | | | at 1004, For 1 dose, Radiology | | | | | | + +-------+ +---------+---+---+ +---+---+ | | | +---+---+ + +-------+ +------+---+---+ | morphine injection 4 mg 4 mg, | Given | 04/27/20 | 4 mg | | | | Intravenous, ONCE, [facility] 04/27/19 | | 19 10:10 | | | | | at 1005, For 1 dose | | AM PST | | | | + +-------+ +------+---+---+ +---+---+ | | | +---+---+ + +------+ +---------+-------+---+ | sodium chloride 0.9% (NS) bolus | Push | 04/27/20 | 100 mLs | 6000 | | | 100 mL 100 mL, Intravenous, | | 19 10:04 | | mL/hr | | | Administer over 1 Minutes, ONCE | | AM PST | | | | | PRN, for CT contrast study, | | | | | | | Starting [facility] 04/27/19 at 1004, | | | | | | | For 1 dose, Radiology | | | | | | + +------+ +---------+-------+---+ +---+---+ | | | +---+---+ documented in this encounter"
--- OUTSIDE RECORDS SUMMARY | ~2019-12-22 | XMS | Clinical Summary ---
Demographics + + + | Address | [address] | | | [place] [address] | + + + | Home Phone | | + + + | Preferred Language | Unknown | + + + | Marital Status | Single | + + + | Latter Day Affiliation | Unknown | + + + [...] Team Providers + +------+ + | Care Mat Cleaning Machine Operator Name | Role | Phone | + +------+ + PCP | Unavailable | + +------+ + Source Comments JOSS[facility] is fully live on both [facility] and [facility] InPatient.[facility] Allergies No Known Allergies Medications + [...] | | | + +--------+ +--------+-------+---------+--------+ | [facility] | ETHIOPIAN | xxxxxxxxx | Effect | | | [...] Person | Self | [birth year] | [address] | | | al/Cristi | | 1945 | [phone] | [place] | | | carolyn | | | 4 (Home) | [address] | | | | | | [phone] | | | | | | | 0 (Work) | | + +--------+ +--------+ + + | Buck Bell | Agency | Self | [birth year] | | [address] | | | | | 1945 | [phone] | [place] | | | | | | 4 (Home) | [address] | | | | | | [phone] | | | | | | | 0 (Work) | | + +--------+ +--------+ + + Advance Directives + + + + + | Type | Date Recorded | Patient | Explanation | | | | Machine Setup Operator | | + + + + + | Advance | | | | | Directives and | | | | | Living Will | | | | + + + + + | Power of | | | | | Body Care Manager | | | | + + + + +
--- OUTSIDE RECORDS SUMMARY | ~2019-12-22 | XMS | Encounter Summary ---
Demographics + + + | Address | [address] | | | [place] [address] | + + + | Home Phone [...] Team Providers + +------+ + | Care Cook Helper Juice Name | Role | Phone | + [...] Closed | | Radiology | Diagnoses | Saji, | [facility] | | | | | Dizziness | HALI Grimes | [address] | | | | | and | [address] | [place], | | | | | giddiness | [address] | [place] | | | | | Procedures | [place], | [address] | | | | | MRI Brain wo | [place] [address] | Phone: | | | | | Contrast | Phone: | [phone] | | | | | | [phone] | Fax: | | | | | | Fax: | [phone] | | | | | | [phone] | | +--------+--------+ + + + + Reason for Visit Diagnostic/Screening (Routine) +--------+--------+ + + + + | Status | Reason | Specialty | Diagnoses / | Referred By | Referred To | | | | | Procedures | Contact | Contact | +--------+--------+ + + + + | Closed | | Radiology | Diagnoses | Saji, | [facility] | | | | | Dizziness | COLEEN GrimesP | [address] | | | | | and | [address] | [place], | | | | | giddiness | [address] | [place] | | | | | Procedures | [place], | [address] | | | | | MRI Brain wo | [place] [address] | Phone: | | | | | Contrast | Phone: | [phone] | | | | | | [phone] | Fax: | | | | | | Fax: | [phone] | | | | | | [phone] | | +--------+--------+ + + + + Encounter Details +--------+ + + + + | Date | Type | Department | Care Team | Description | +--------+ + + + + | 05/22/ | Hospital | [facility] | Sydney Lennon, | Dizziness and | | 2020 | Encounter | MED [facility] MRI [address] | RN [place] [id number] [address] | giddiness | | | | [address] [place], | [place] | | | | | [place] [address] | [address] | | | | | [phone] | | | +--------+ + + + [...] | | | | | [facility] | | | | | | [place] [address] | | | | | | [phone] | | | | | | | | +--------+ + + + + | 03/13/ | Office | Neurology | Veronica, | | | 2019 | Visit | | HALI [place] [address] | | [address] [place], | | | | | | [place] [address] | | | | | | [phone] | | | | | | | | +--------+ + + + + documented as of this encounter Procedures + +--------+ + + + | Procedure Name | Priori | Date/Time | Associated Diagnosis | Comments | | | ty | | | | + +--------+ + + + | MRI BRAIN WO | Routin | 05/22/2019 | Dizziness and | Results for this | | CONTRAST | e | 1:28 PM | giddiness | procedure are in the | | | | PST | | results section. | + +--------+ + + + documented in this encounter Results MRI Brain wo Contrast (05/22/2019 1:28 PM PST) + + | Specimen | + + | | + + + + + | Impressions | Performed At | + + + | No acute infarction, mass, or evidence of acute hemorrhage. | [facility] | | Large chronic infarction changes involving the right temporal, | | | occipital, and inferior parietal lobes. Smaller chronic infarction | | | changes at the medial left occipital lobe. Small chronic right | | | caudate lacunar infarction. T2/FLAIR hyperintense white matter | | | changes likely representing microvascular gliosis. Dictated and | | | Signed by: Chase Hughes MD Electronically signed: 05/22/2019 2:33 | | | PM | | + + + + + + | Narrative | Performed At | + + + | TECHNIQUE: MRI of the brain with sequences to include sagittal | [facility] | | T1, axial diffusion-weighted imaging and ADC maps, axial T2, axial T2 | | | FLAIR, axial susceptibility weighted imaging. CLINICAL | | | INFORMATION: Dizziness and giddiness COMPARISON: MRI dated | | | 05/16/[address] 04/27/2019 FINDINGS: Bilateral ocular lens | | | prostheses. Paranasal sinuses and mastoid air cells are clear. | | | No intracranial blood product or abnormal extra-axial fluid | | | collection. No evidence of intracranial mass or mass effect. | | | Large area of encephalomalacia involving the right temporal occipital | | | and inferior parietal region. Compensatory enlargement of the right | | | lateral ventricle antrum, occipital and temporal horns. | | | Encephalomalacia also noted at the medial left occipital lobe. | | | Diffusion weighted imaging and ADC maps show no areas of high or low | | | signal respectively to suggest acute ischemia/infarction. Mild T2 | | | hyperintense foci scattered throughout the periventricular and | | | subcortical white matter. Mild diffuse cerebral volume loss. | | | Associated mild prominence of the ventricles and other CSF spaces. | | | Chronic small lacunar infarction at the anterior right caudate. | | | Small foci of susceptibility artifact at the bilateral basal ganglia, | | | likely demineralization. No definite findings to suggest hemosiderin | | | deposition. Right dominant vertebral artery system. | | + + + + + | Procedure Note | + + | [place], Rad Results In - 05/22/2019 2:36 PM PST | | TECHNIQUE: MRI of the brain with sequences to include sagittal T1, axial | | diffusion-weighted imaging and ADC maps, axial T2, axial T2 FLAIR, axial | | susceptibility weighted imaging. | | | | CLINICAL INFORMATION: Dizziness and giddiness | | | | COMPARISON: MRI dated 05/16/[address] 04/27/2019 | | | | FINDINGS: | | Bilateral ocular lens prostheses. | | | | Paranasal sinuses and mastoid air cells are clear. | | | | No intracranial blood product or abnormal extra-axial fluid collection. No | | evidence of intracranial mass or mass effect. | | | | Large area of encephalomalacia involving the right temporal occipital and | | inferior parietal region. Compensatory enlargement of the right lateral | | ventricle antrum, occipital and temporal horns. Encephalomalacia also noted at | | the medial left occipital lobe. | | | | Diffusion weighted imaging and ADC maps show no areas of high or low signal | | respectively to suggest acute ischemia/infarction. | | | | Mild T2 hyperintense foci scattered throughout the periventricular and | | subcortical white matter. Mild diffuse cerebral volume loss. Associated mild | | prominence of the ventricles and other CSF spaces. Chronic small lacunar | | infarction at the anterior right caudate. | | | | Small foci of susceptibility artifact at the bilateral basal ganglia, likely | | demineralization. No definite findings to suggest hemosiderin deposition. | | | | Right dominant vertebral artery system. | | | | | | IMPRESSION: | | | | No acute infarction, mass, or evidence of acute hemorrhage. | | | | Large chronic infarction changes involving the right temporal, occipital, and | | inferior parietal lobes. Smaller chronic infarction changes at the medial left | | occipital lobe. Small chronic right caudate lacunar infarction. | | | | T2/FLAIR hyperintense white matter changes likely representing microvascular | | gliosis. | | | | Dictated and Signed by: Chase Hughes MD | | Electronically signed: 05/22/2019 2:33 PM | + + + +---------+ + + | Performing | Address | City/State/Zipcode | Phone Number | | Organization | | | | + +---------+ + + | [facility] | | | | + +---------+ + + documented in this encounter Visit Diagnoses + + | Diagnosis | + + | Dizziness and giddiness | + + documented in this encounter"
--- OUTSIDE RECORDS SUMMARY | ~2019-12-22 | XMS | Encounter Summary ---
Demographics + + + | Address | [address] | | | [place] [address] | + + + | Home Phone [...] + | Author | [facility] | | | and [place] | + + + | Organization | [facility] | | | and [...] Team Providers + +------+ + | Care Screening Technician Name | Role | Phone | + +------+ + | Sydney Lennon | PCP | | + +------+ + Encounter Details +--------+ + + + + | Date | Type | Department | Care Team | Description | +--------+ + + + + | 11/14/ | Orders Only | [facility] | Tomasa Jose, | Carotid stenosis, | | 2020 | | VASCULAR SURGERY | PA-C [address] | right (Primary Dx) | | | | [address] | [address] | | | | | [place], [place] | [place] [address] | | | | | [address] | [phone] | | | | | [phone] | | | +--------+ + + + [...] HOSPITAL | | | | | | [place] [address] | | | | | | [phone] | | | | | | | | +--------+ + + + + | 03/13/ | Office | Neurology | Veronica, | | | 2019 | Visit | | [place] [address] | | | | | | [address] [facility] [place], | | | | | | [place] [address] | | | | | | [phone] | | | | | | | | +--------+ + + + + documented as of this encounter Visit Diagnoses + + | Diagnosis | + + | Carotid stenosis, right - Primary Occlusion and stenosis of carotid artery without | | mention of cerebral infarction | + + documented in this encounter"
--- OUTSIDE RECORDS SUMMARY | ~2019-12-22 | XMS | Encounter Summary ---
Demographics + + + | Address | [address] | | | [place] [address] | + + + | Home Phone [...] | Organization | [facility] [...] Providers + +------+ + | Care Plaster Caster Name | Role | Phone | + [...] | | | | | | | NM | | | | | | | [...] + + | 07/26/ | Anesthesia | [facility] | Jaswant Calix MD | | | 2015 | Event | [facility] | [address] | | | | | [address] | [place] | | | | | [place] | [address] | | | | | [address] | [phone] | | | | | [phone] | | | +--------+ + + + + Anesthesia Record + + + + + | Procedure Name | Responsible | Anesthesia Start | Anesthesia Stop Time | | | Anesthesiologist | Time | | + + + + + | C3-4, C4-5, C5-6, | Jaswant H MD Yogi | 07/26/14 1009 | 07/26/14 1344 | [...] | 07/26/14; 49; short term use; | 07/26/14748 by | 07/27/141116 by | | ONLY] | 07/27/14; 1116 | Kaylie Bower, | Karina Copeland | [...] encounter OR Notes Anesthesia Postprocedure Evaluation - Jaswant Calix MD - 07/26/2014 2:00 PM Alirio nicholas of this note might be different from the original. ANESTHESIA POSTANESTHESIA EVALUATION Buck Bell 69 y.o. male 1945 [id number] Procedure(s) C3-4, C4-5, C5-6, C6-7 Anterior Cervical Discectomy Fusion (N/A Neck) Filed Vitals: 07/26/14 1345 07/26/14 1350 07/26/14 1355 BP: 150/78 169/85 167/84 Pulse: 66 82 67 Temp: Resp: 12 18 16 SpO2: 99% 98% 95% Cooperates? Yes Mental Status Performs simple tasks. Respiratory Satisfactory - Airway patent (self maintained). Cardiovascular Satisfactory Blood pressure and heart rate acceptable Temperature Satisfactory Pain Satisfactory N/V Control Satisfactory Hydration Satisfactory No signs of dehydration Complications None apparent Electronically signed by Jaswant Calix MD 07/26/2014 14:[address] [facility] nesthesia Preprocedur e Evaluation - Jaswant Calix MD - 07/26/2014 8:26 AM PDT ANESTHESIA PREANESTHESIA EVALUATION Buck Bell 69 y.o. male 1945 [id number] Procedure(s): C3-4, C4-5, C5-6, C6-7 Anterior Cervical Discectomy Fusion (N/A Neck) Medical history, anesthesia, medications, allergy histories reviewed. Labs reviewed. ROS / Med History CV (+) hypertension. GI/Hep (+) hypercholesterolemia. Endo (+) obesity: BMI (30-39). Physical Exam Airway MP II, TM >3 FB, Mouth opening >2 FB. Neck: full ROM, extends >30 degrees. Jaw protrus ion normal. Dental Grossly normal except where noted below.; CV Rhythm regular. Rate Normal. (-) murmur. Neuro Grossly normal. Anesthesia Plan ASA 2 Type: General. Induction: Intravenous. Potential problems: None anticipated. Monitors: Standard ASA monitors. Consent statement:Anesthetic plan, alternatives, risks and benefits discussed with patient. Risks discussed included (but were not limited to): sore throat, pain, nausea, . Consenting person understands and agrees to proceed. Electronically Signed by: Jaswant Calix MD ESig date/time: 07/26/2014 9:45 documented in this enc ounter Plan of [...] | | | | | | [address] | | | | | | [place] [address] | | | | | | [phone] | | | | | | | | +--------+ + + + + | 03/13/ | Office | Neurology | Veronica, | | | 2019 | Visit | | [address] | | | | [address] [place], | | | | | | [place] [address] | | | | | | [phone] | | | | | | | [...] | | | | to Incision, Starting [facility] | | | | | | | 07/26/14 at 0723, For 1 dose, | | [...] lidocaine (PF) 2% injection | Given | 07/27/19 | 100 mg [...]
--- OUTSIDE RECORDS SUMMARY | ~2019-12-22 | XMS | Clinical Summary ---
Demographics + + + | Address | [address] | | | [place] [address] | + + + | Home Phone [...] Team Providers + +------+ + | Care Pharmaceutical Worker Name | Role | Phone | [...] | | 07/1 | Disco | | Buf,OgRilx-XkUdab-Kd | | | | | 9/20 | ntinu | | O, 81 MG TABS | | | | | 20 | ed | + + + +---------+------+------+-------+ | cephalexin [...] automatically from request for surgery | | [id number] Angio of head and neck October 2019 shows mild to moderate | | right greater than left intracranial ICA atherosclerotic | | narrowing. Mild to moderate narrowing of the intracranial | | anterior circulation, worst along the left M1 segment, as | | described above. Severe narrowing of bilateral ESTATE PLANNING DIRECTOR P3 segments, | | as noted, with [...] systolic function NML, Grade 1 diastolic abnormality, [place] | | visually estimates LVEF 65-70%. Mild [...] | Comment: got Lisinopril from provider in [facility] | + + + + + | Dizziness | 10/06/2019 | + + + + + | Overview: Feb 26, 2016 Entered By: SARA RANDHAWA | | Comment: had MRI with [facility] provider and it is OKOct | | 2015 Entered By: SARA RANDHAWA [...] Salvador Jose MD | Pre-op testing | 2019 | Encounter | | | [...] Salvador Jose MD | Carotid stenosis, | 2019 | Visit | | | [...] Imaging | Radiology | Provider, | | 2019 | Exam | | MD Kathy | | +--------+ + + + + | 11/13/ | Imaging | Radiology | Provider, | | 2019 | Exam | | MD Kathy | | +--------+ + + + + | 11/08/ | Telephone | Vascular Surgery | Salvador Jose MD | Other (thoughts on | 2019 | | | | the CT) | +--------+ + + + + | 11/05/ | Telephone | Vascular Surgery | Salvador Jose MD | Other (Appointment | 2019 | | | | Notes Request) | +--------+ + + + + | 10/31/ | Virtual | Vascular Surgery | Salvador Jose MD | Carotid stenosis, | 2019 | Office | | | [...] | Consult | | 2020 | | | | [...] Gamble MD | Dizziness (Primary | | 2020 | Visit | | | Dx); Cerebrovascular [...] | | | | | [facility] [place] | | | | | | [place] [address] | | | | | | [phone] | | | | | | | | +--------+ + + + + | 03/13/ | Office | Neurology | Veronica, | | | 2019 | Visit | | [address] | | | | | | [address] [place], | | | | | | [place] [address] | | | | | | [phone] | | | | | | | [...] | + +-------+--------+ +--------+--------+--------+ | Xgrft Vascu-Guard Ptc 0.8x8 | Graft | Right: | GARCÍA | | 03/30/ | [id number] | | - Sn/AImplanted: Qty: 1 on | | | BIOSCIENCE | | 2023 | N /N/A | | 12/01/2019 by Salvador Jose, | | Rachelle | - KELLIE | | | | | MD at [facility] | | d | | | | /[id number] | | [facility] | | | | | | 11-143 | | | | | | | | 5476 | + +-------+--------+ +--------+--------+--------+ | Allgrft Grftn Pls c Aseptic | | N/A: | OSTEOTECH - | | 03/15/ | [id number] | | - [id number]: Qty: | | Spine | OSTT | | 2015 | | | 1 on 07/26/2014 by Olegario, | | Cervkamar | | | | /[id number] | | Wes Rasmussen MD at [facility] | | al | | | | 1-069 | | [facility] | | | | | | / | + +-------+--------+ +--------+--------+--------+ | Allograft Lordotic [id number] - | | N/A: | SOF[facility]OR | | 03/27/ | [id number] | | [id number]: Qty: 1 on | | Spine | DANEK - DIV | | 2016 | | | 07/26/2014 by Wes Melvin, | | Cervic | [employer] | | | /[id number] | | at [facility] | | al | - SFDK | | | 137 | | [facility] | | | | | | /[id number] | | | | | | | | 3633 | + +-------+--------+ +--------+--------+--------+ | Allogft Lordtc Bone Sr | | N/A: | SPINALGRAFT | | 03/19/ | [id number] | | [id number] - [id number]: | | Spine | | | 2016 | | | Qty: 1 on 07/26/2014 by Olegario, | | Agustina | TECHNOLOGIE | | | /[id number] | | Wes Rasmussen MD at [facility] | | al | S - SPNL | | | 822 | | [facility] | | | | | | /[id number] | | CENTER | | | | | | 3280 | + +-------+--------+ +--------+--------+--------+ | Allograft Lordotic [id number] - | | N/A: | SOFAMOR | | 03/27/ | [id number] | | [id number]: Qty: 1 on | | Spine | DANEK - DIV | | 2017 | | | 07/26/2014 by Wes Melvin, | | Agustina | [employer] | | | /[id number] | | at [facility] | | al | - SFDK | | | 141 | | [facility] | | | | | | /[id number] | | | | | | | | 3633 | + +-------+--------+ +--------+--------+--------+ | Allogft Lordtc Bone Sr | | N/A: | SPINALGRAFT | | 03/23/ | [id number] | | [id number] - [id number]: | | Spine | | | 2016 | | | Qty: 1 on 07/26/2014 by Olegario, | | Agustina | TECHNOLOGIE | | | /[id number] | | Wes Rasmussen MD at [facility] | | al | S - SPNL | | | 967 | | [facility] | | | | | | /[id number] | | [place] | | | | | | 3899 | + +-------+--------+ +--------+--------+--------+ | Screw Slf-Drl F/A 4.5x17mm - | | N/A: | SO[facility]OR | | | [id number] | | [id number]: Qty: 2 on | | Spine | DANEK - DIV | | | / | | 07/26/2014 by Wes Melvin | Jose Berrios | [facility] | | | | | at [facility] | | josemanuel | - [facility]FDK | | | | | [facility] | | | | | | | + +-------+--------+ +--------+--------+--------+ | Screw Slf-Drl V/A 4.0x16mm - | | N/A: | SOFAMOR | | | [id number] | | [id number]: Qty: 6 on | | Spine | DANEK - DIV | | | 6 | | 07/26/2014 by Wes Melvin, | | Agustina | [employer] | | | | | MD at [facility] | | al | - [facility]FDK | | | | | [facility] | | | | | | | + +-------+--------+ +--------+--------+--------+ | Screw Slf-Drl V/A 4.0x17mm - | | N/A: | SOFAMOR | | | [id number] | | [id number]: Qty: 2 on | | Spine | DANEK - DIV | | | | | 07/26/2014 by Wes Melvin, | | Agustina | [employer] | | | | | MD at [facility] | | al | - [facility]K | | | | | [facility] | | | | | | | + +-------+--------+ +--------+--------+--------+ | Plate Ant [place] Cerv 80mm | | N/A: | [facility]IC - | | | [id number] | | - [id number]: Qty: 1 | | Spine | MEDT | | | 0 / / | | on 07/26/2014 by Wes Melvin | | Agustina | | | | | | MD Valery at [facility] | | al | | | | | | [facility] | | | | | [...] Procedure Note | + + | Eld[place], [id number] - 12/13/2019 11:59 AM PDT | | [...] LABORATORY | | | | performed at [facility], [address] | [address] | [address], | | | | | | [place] [address] | | | | + + + + + + + + | Specimen | + + | Blood | + + + + + + + | Performing | Address | City/State/Zipcode | Phone Number | | Organization | | | | + + + + + | [facility] | [address] | [place] [address] | [phone] | + + + + + Basic [...] | | | | | performed at [facility], [address] | | | | | | [facility], | | | | | | [place] [address] | | | | + + + + + + + + | Specimen | + + | Blood | + + + + + + + | Performing | Address | City/State/Zipcode | Phone Number | | Organization | | | | + + + + + | [facility] | [address] | [place] [address] | [phone] | + + + + + CBC [...] | | | Absolute | performed at [facility], [address] | [address] | LABORATORY | | | | [address], | | | | | | [place] [address] | | | | + + + + + + + + | Specimen | + + | Blood | + + + + + + + | Performing | Address | City/State/Zipcode | Phone Number | | Organization | | | | + + + + + | [facility] | [address] | [place] [address] | [phone] | + + + + + Hemoglobin [...] [facility] | | | | performed at [facility] | | LABORATORY | | | | [facility];[place], [place] | | | | | | [address] | | | | + + + + + + + + | Specimen | + + | Blood | + + + + + + + | Performing | Address | City/State/Zipcode | Phone Number | | Organization | | | | + + + + + | [facility] | [address] | [place] [address] | [phone] | + + + + + Surgical [...] plaque | | | with extensive calcification. JVR:sm:C2NR MICROSCOPIC | | | EXAMINATION:Histologic sections of [...] | | | component was performed by [facility], [address] [place] [address], | | | [place] [address] (Data Modeling Architect: Shannan Archer MD; CLIA# | | | [id number]). Professional interpretation was performed [facility] | | | [facility], [address] | | | [place] [address] (Data Modeling Architect: Issa | | | Kam Palacio). Diagnostician: Issa Palacio | | | MDPathologistElectronically Signed 12/05/2019 | | |The technical component was performed by [facility], [address] [place] [address] (Data Modeling Architect: Shannan Archer MD; CLIA# [id number]). Professional interpretation w as performed by | | |[facility], [place] [address] (Data Modeling Architect: Issa Palacio M.D.). | | | | [...] + + + | [facility] | [id number] | | [facility] | | | | | | LABORATORY | | + + + + + + | [facility] | Testing performed at | | [facility] | | | | [facility] | | LABORATORY | | | | [place] [address] | | | | + + + + + + + + | Specimen | + + | Blood | + + + + + + + | Performing | Address | City/State/Zipcode | Phone Number | | Organization | | | | + + + + + | [facility] | [address] | [place] [address] | [phone] | + + + + + ECG [...] +---------+--------+ | [employer]ER[employer] ADMIN | VETERA | [id number] | | | | Indemn | | | NS | | 017-Pr | | | ity | | | ADMIN | | esent | | | | | | PORTLA | | | | | | | | [place] | | | | | | + +--------+ +--------+ +---------+--------+ | MEDICARE | MEDICA | [id number] | 11/15/19 | [phone] | | Medica | | | RE | | 16-Pre | 5 | | re | | | PART A | | sent | | | | | | AND B | | | | | | + +--------+ +--------+ +---------+--------+ | MEDICARE | MEDICA | [id number] | 11/15/19 | [phone] | | Medica | | | RE | | 16-Pre | 5 | | re | | | PART A | | sent | | | | | | AND B | | | | | | + +--------+ +--------+ +---------+--------+ | MEDICARE | MEDICA | [id number] | 11/15/19 | [phone] | | Medica | | | RE | | 16-Pre | 5 | | re | | | PART A | | sent | | | | | | AND B | | | | | | + +--------+ +--------+ +---------+--------+ | [facility] | IHS | [id number] | 11/14/18 | | | Indemn | | SERVICE | YELLOW | | 99-Pre | | | ity | | | HAWK | | sent | | | | + +--------+ +--------+ +---------+--------+ | [facility] | IHS | [id number] | 07/16/19 | | | Indemn | | SERVICE | YELLOW | | 10-Pre | | | ity | | | HAWK | | sent | | | | + +--------+ +--------+ +---------+--------+ | [facility] | IHS | [id number] | 05/17/19 | | | Indemn | [...] Person | Self | [birth year] | [address] | | [place] | josemanuel/Cristi | | 4 | | [place] | | | [place] | | | 9 (Home) | [address] | + +--------+ +--------+ + + | Buck Bell | Person | Self | [birth year] | [address] | | [place] | al/Fam | | 1945 | 53 | [place] | | | [place] | | | 9 (Home) | [address] | + +--------+ +--------+ + + | Buck Bell | Person | Self | [birth year] | | [address] | | [place] | al/Fam | | 1945 | [phone] | [place] | | | car[place]yn | | | 9 (Fries) | [address] | + +--------+ +--------+ + + Advance Directives + + + + + | Type | Date Recorded | Patient | 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
--- OUTSIDE RECORDS SUMMARY | ~2019-12-22 | XMS | Encounter Summary ---
Demographics + + + | Address | [address] | | | [place] [address] | + + + | Home Phone [...] Team Providers + +------+ + | Care Patternmaker Bench Name | Role | Phone | + +------+ + | Dominic Carlin MD | PCP | | + +------+ + Encounter Details +--------+ + + + + | Date | Type | Department | Care Team | Description | +--------+ + + + + | 07/27/ | Hospital | [facility] | Ernesto Thomas, | | | 2015 | Encounter | MED CTR ACUTE | PT [address] | | | | | PHYSICAL THERAPY | [place] | | | | | [address] | [address] | | | | | [place] [address] | | | | | | [phone] | | | +--------+ + + + [...] | 2019 | Visit | | [address] | | | | | | [address] [place] [facility] | | | | | | [place] [address] | | | | | | [phone] | | | | | | | | +--------+ + + + + | 03/13/ | Office | Neurology | Veronica, | | | 2019 | Visit | | [address] | | | [address] [place], | | | | | | [place] [address] | | | | | | [phone] | | | | | | | | +--------+ + + + + documented as of this encounter Visit Diagnoses Not on filedocumented in this encounter"
--- OUTSIDE RECORDS SUMMARY | ~2019-12-22 | XMS | Encounter Summary ---
Demographics + + + | Address | [address] | | | [place] [address] | + + + | Home Phone [...] | Organization | [facility] [...] Team Providers + +------+ + | Care Dye Reel Operator Helper Name | Role | Phone | + +------+ + | Sydney Lennon | PCP | | + +------+ + Reason for Visit + +--------+ + | Reason | Onset | Comments | | | Date | | + +--------+ + | Follow-up | 12/03/ | | | | 2020 | | + +--------+ + Encounter Details +--------+ + + + + | Date | Type | Department | Care Team | Description | +--------+ + + + + | 12/03/ | Telephone | [facility] | Yazmin Jesus, | Follow-up | | 2020 | | VASCULAR SURGERY | RN | | | | | [address] | | | | | | [place] | | | | | | [address] | | | | | | [phone] | | | +--------+ + + + [...] Telephone Encounter - Yazmin Jesus RN - 12/04/2019 1:51 PM PDTFollow up call made to patient. Message left with patient's sister in law to call [facility] back and schedule f ollow up appointments. Awaiting call back. Electronically signed by Yazmin Jesus RN a t 12/04/2019 1:52 PM PDTdocumented in this encounter Plan of [...] | | | | | [address] [facility] | | | | | | [place] [address] | | | | | | [phone] | | | | | | | | +--------+ + + + + | 03/13/ | Office | Neurology | Veronica, | | | 2019 | Visit | | [address] | | | [address] [place], | | | | | | [place] [address] | | | | | | [phone] | | | | | | | | +--------+ + + + + documented as of this encounter Visit Diagnoses Not on filedocumented in this encounter"
--- OUTSIDE RECORDS SUMMARY | ~2019-12-22 | XMS | Encounter Summary ---
Demographics + + + | Address | [address] | | | [place] [address] | + + + | Home Phone | | + + + | Preferred Language | Unknown | + + + | Marital Status | Single | + + + | Sikhism Affiliation | 1041 | + + + | Race | Unknown | + + + | Ethnic Group | Unknown | + + + Author + + + | Author | [facility] | | | and [place] | + + + | Organization | [facility] | | [...] Team Providers + +------+ + | Care Cosmetic Sales Assistant Name | Role | Phone | + +------+ + | Dominic Carlin MD | PCP | | + +------+ + Encounter Details +--------+ + + + + | Date | Type | Department | Care Team | Description | +--------+ + + + + | 09/11/ | Hospital | [facility] IP | Conversion | Pain | | 2016 | Encounter | CONVERSION DEP [address] | Transaction, | | | | | [address] | Provider Unknown | | | | | [place] | [phone] | | | | | [address] | | | | | | [phone] | | | +--------+ + + + [...] | | | | | [address] [facility] [place] | | | | | | [place] [address] | | | | | | [phone] | | | | | | | | +--------+ + + + + | 03/13/ | Office | Neurology | Veronica, | | | 2019 | Visit | | [address] | | | | | | [address] [facility], | | | | | | [place] [address] | | | | | | [phone] | | | | | | | [...]
--- OUTSIDE RECORDS SUMMARY | ~2019-12-22 | XMS | Encounter Summary ---
Demographics + + + | Address | [address] | | | [place] [address] | + + + | Home Phone | | + + + | Preferred Language | Unknown | + + + | Marital Status | Single | + + + | Sikh Affiliation | 1041 | + + + | Race | Unknown | + + + | Ethnic Group | Unknown | + + + Author + + + | Author | [facility] | | | and [place] | + + + | Organization | [facility] | | | [...] Team Providers + +------+ + | Care Physician/Internist Name | Role | Phone | + [...] [address] | | | | | | [place], [place] | | | | | | [address] | | | | | | [phone] | | | +--------+ + + + [...] | | | | | TO[address] [facility] | | | | | | [place] [address] | | | | | | [phone] | | | | | | | | +--------+ + + + + | 03/13/ | Office | Neurology | Veronica, | | | 2019 | Visit | | [address] | | [address] [place], | | | | | | [place] [address] | | | | | | [phone] | | | | | | | | +--------+ + + + + documented as of this encounter Visit Diagnoses + + | Diagnosis | + + | Lumbago | + + documented in this encounter"
--- OUTSIDE RECORDS SUMMARY | ~2019-12-22 | XMS | Encounter Summary ---
Demographics + + + | Address | [address] | | | [place] [address] | + + + | Home Phone | | + + + | Preferred Language | Unknown | + + + | Marital Status | Single | + + + | Restoration Affiliation | 1041 | + + + | Race | Unknown | + + + | Ethnic Group | Unknown | + + + Author + + + | Author | [facility] | | | and [place] | + + + | Organization | [facility] | | | and [...] Team Providers + +------+ + | Care Meals On Wheels Driver Name | Role | Phone | + +------+ + | Sydney Lennon | PCP | | + +------+ + Encounter Details +--------+ + + + + | Date | Type | Department | Care Team | Description | +--------+ + + + + | 11/23/ | Hospital | [facility] | Salvador Jose MD | Pre-op testing | | 2020 | Encounter | [facility] | [address] | | | | | ELECTRODIAGNOSTICS | [address] | | | | | [address] | [place] [address] | | | | | [place], [place] | [phone] | | | | | [address] | | | | | | [phone] | | | +--------+ + + + [...] + + + +---------+ + + | Aspirin | Take 81 mg by mouth. | | 0 | | | | Mi GarciaNiMvnw-DaZylm-Kh | | | | | 0 | | O, 81 MG TABS | | | | | | + [...] | | | | | | [place] | | | | | | [place] [address] | | | | | | [phone] | | | | | | | | +--------+ + + + + | 03/13/ | Office | Neurology | Veronica, | | | 2019 | Visit | | Angie, PROGRAM PROPOSALS COORDINATOR [address] | | | | | | [address] [facility], | | | | | | [place] [address] | | | | | | [phone] | | | | | | | [...] in this encounter Results ECG 12 lead (11/24/2019 12:02 PM PDT) [...] + | Diagnosis | + + | Pre-op testing Preoperative examination, unspecified | + + documented in this encounter"
--- OUTSIDE RECORDS SUMMARY | ~2019-12-22 | XMS | Encounter Summary ---
Demographics + + + | Address | [address] | | | [place] [address] | + + + | Home Phone [...] Team Providers + +------+ + | Care Vice President [employer]vertising Sales Name | Role | Phone | + +------+ + | Dominic Carlin MD | PCP | | + +------+ + Reason for Visit + + + | Reason | Comments | + + + | Establish Care | | + + + Evaluate & Treat (Routine) +--------+--------+ + + + + | Status | Reason | Specialty | Diagnoses / | Referred By | Referred To | | | | | Procedures | Contact | Contact | +--------+--------+ + + + + | Closed | | Neurology | Diagnoses | Saji, | Tye, | | | | | Other | HALI Grimes | Luan Cuevas MD | | | | | cervical | [id number] | [address] | | | | | disc | [address] | [place] | | | | | degeneration | [place], | [place], [place] | | | | | , | [place] [address] | [address] Phone: | | | | | unspecified | Phone: | [phone] | | | | | cervical | [phone] | Fax: | | | | | region | Fax: | [phone] | | | | | | [phone] | | +--------+--------+ + + + + Encounter Details +--------+---------+ + + + | Date | Type | Department | Care Team | Description | +--------+---------+ + + + | 10/05/ | Office | [place] [facility] | Luan Gamble MD | Dizziness (Primary | | 2020 | Visit | [facility] | [address] [place] | Dx); Cerebrovascular | | | | CLINIC [address] | [place] | accident (CVA) due | | | | DR [place], | [id number] | to thrombosis of | | | | [place] [address] | | right middle | | | | [phone] | | cerebral artery | | | | | | (HCC); 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 | | | | | | hemianopsia | +--------+---------+ + + + Social History [...] + + + | Blood Pressure | 134/80 | 10/06/2019 9:30 AM | | | | | PDT | | + + + + + | Pulse | 77 | 10/06/2019 9:30 AM | | | | | PDT | | + + + + + | Temperature | 36.6 C (97.8 F) | 10/06/2019 9:30 AM | | | | | PDT | | + + + + + | Respiratory Rate | 16 | 10/06/2019 9:30 AM | | | | | PDT | | + + + + + | Oxygen Saturation | 95% | 10/06/2019 9:30 AM | | | | | PDT | | + + + + + | Inhaled Oxygen | - | - | | | Concentration | | | | + + + + + | Weight | 86.2 kg (190 lb) | 10/06/2019 9:30 AM | | | | | PDT | | + + + + + | Height | 170.2 cm (5' 7") | 10/06/2019 9:30 AM | | | | | PDT | | + + + + + | Body Mass Index | 29.76 | 10/06/2019 9:30 AM | | | | | PDT [...] of this encounter Patient Instructions Patient Instructions Luan Gamble MD - 10/06/2019 9:45 AM PDTFormatting of this note mi ght be different from the original. Patient Instructions [facility] Neurology Clinic Dr. 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 magazines, perform word find exercises such as cross word puzz le, and scrabble, other puzzle games like [employer], [employer]. Play computer/mobile applications such as [employer] and [employer] Advised referral to vascular surgeon for Right ICA stenosis,>85 %, however, refused at this time Refusing all meds including blood pressure, Plavix, cholesterol lowering agents, or any wor k up Will speak with [facility] or Sofiya acosta for his home status Continue ASA 81 mg daily Use a cane for ambulation Any Questions please call TARIQ Raya or Dr. Gamble at [facility] Neurology Clinic Dizziness (Vertigo) and Balance Problems: Staying Safe Replace burned-out light bulbs to keep your home safe and well lit. Falls or accidents can lead to pain, broken bones, and fear of future falls. Protect yourse lf and others by preparing for episodes. Simple steps can help you stay safe at home and whe rever you go. Lighting Keep all areas well lit. This helps your eyes send the right signals to the brain. It also makes you less likely to trip and fall. If bright lights make symptoms worse, dim the lights or lie in a dark room until the dizziness passes. Then turn the lights back to their normal level. Tips: Keep a flashlight by the bed. Place nightlights in bathrooms and hallways. Replace burned-out bulbs, or have someone replace them for you. Preventing falls To reduce your risk of falling: Get out of bed or up from achair slowly. Wear low-heeled shoes that fit properly and have slip-resistant soles. Remove throw rugs. Clear clutter from walkways. Use handrails on stairs. Have handrails installed or adjusted if needed. Install grab bars in the bathroom. Don't use towel racks for balance. Use a shower stool. Also put adhesive strips in the shower or on the tub floor. Going out With a little time and preparation, you can get around safely. Tips: Bring a cane or walking aid if needed. Give yourself plenty of time in case you start to get dizzy. Ask your healthcare provider what type of exercise is safe for your condition. Be patient. If an activity such as walking through a crowded shop causes you stress, you may not be ready for it yet. Driving If you become dizzy or disoriented while driving, you could hurt yourself and others. That' s why it's best to not drive until symptoms have gone away. In some cases, your license may be temporarily held until it's safe for you to drive again. For safety: Ask a friend to drive for you. Take public transportation. Walk to stores and other places when you can. Asking for help Don't be afraid to ask for help running errands, cooking meals, and doing exercise. Whether it's a friend, loved one, neighbor, or stranger on the street, a little help can make a wor ld of difference. Date Last Reviewed: 03/17/201619990595-4872 [employer]. [address] [place] [address]. All righ ts reserved. This information is not intended as a substitute for professional medical care. Always follow your healthcare professional's instructions. Dizziness (Uncertain Cause) Dizziness is a common symptom. It may be described as lightheadedness, spinning, or feeling like you are going to faint. Dizziness can have many causes. Be sure to tell the healthcare provider about: All medicines you take, including prescription, [id number]-[id number], herbs, and supplements Any other symptoms you have Any health problems you are being treated for Any past major health problems you've had, such as a heart attack, balance issues, heari ng problems, or blood pressure problems Anything that causes the dizziness to get worse or better Today's exam did not show an exact cause for your dizziness.Other tests may be needed. Fo llow up with your healthcare provider. Home care Dizziness that occurs with sudden standing may be a sign of mild dehydration. Drink extr a fluids for the next few days. If you recently started a new medicine, stopped a medicine, or had the dose of a current medicine changed,talk with the prescribing healthcare provider. Your medicine plan may ne ed adjustment. If dizziness lasts more than a few seconds, sit or lie down until it passes. This may he lp prevent injury in case you pass out. Get up slowly when you feel better. Don't drive or use power tools or dangerous equipment until you have had no dizziness fo r at least 48 hours. Follow-up care Follow up with your healthcare provider for further evaluation within the next 7 days or as advised. When to seek medical advice Call your healthcare provider for any of the following: Worsening of symptoms or new symptoms Passing out or seizure Repeated vomiting Headache Palpitations (the sense that your heart is fluttering or beating fast or hard) Shortness of breath Blood in vomit or stool (black or red color) Weakness of an arm or leg or 1 side of the face Vision or hearing changes Trouble walking or speaking Chest, arm, neck, back, or jaw pain Date Last Reviewed: 03/17/201719995971-7943 [employer]. [address] [place] [address], [place] [address]. All righ ts reserved. This information is not intended as a substitute for professional medical care. Always follow your healthcare professional's instructions. Stroke and Heart Disease Every part of your body, including your heart and brain, needs oxygen to work. Oxygen is ca rried in the blood. Blood vessels called arteries carry oxygen-rich blood throughout the bod y. Both heart attack and stroke are due to problems in the arteries. The same factors that c ause heart disease can make you more likely to have a stroke. Heart attack.A heart attack is caused by blockage in an artery that carries blood to t he heart muscle. If blood is blocked, that part of the heart muscle is damaged or dies. Stroke. If an artery supplying the brain is blocked, a stroke may result. This is called an ischemic stroke. Itis caused by a piece of plaque breaking loose from an artery (such as a carotid artery in the neck) or from the heartand lodging in the brain. A stroke cause d by the rupture of a weakened blood vessel is called a hemorrhagic stroke. Both heart attack and stroke are medical emergencies that can lead to serious health proble ms. They can even be fatal. Healthy artery A healthy artery is a tube with flexible nelson and a smooth inner lining. Blood flows freel y through it. Unhealthy artery Artery problems start when the inner lining gets damaged. This is often because of risk fac tors such as smoking and high blood pressure. These can make the artery nelson stiff. Plaque, afatty mix of cholesterol and other material, forms in the lining. This narrows the chann el. Plaque can break, restricting blood flow further. It can also cause a blood clot to form . A blood clot may block the artery s channel completely. Reducing your risk Making changes that make your arteries healthier will help lower your risk for both heart a ttack and stroke. If you have heart disease, you may need to work on a few aspects of your l ifestyle. But remember that the things that are good for your arteries, heart, and brain are also good for the rest of your body. Your healthcare provider will work with you to make lifestyle changes as needed to help pre vent progression of atherosclerotic cardiovascular disease. This can lead to heart attack or stroke. Factors you may need to work on include: Diet. Your healthcare provider will give you information on dietary changes that you may need to make based on your situation. Your provider may recommend that you see a registered dietitian for help with diet changes. Changes may include: ? Reducing fat and cholesterol intake ? Reducing sodium (salt) intake, especially if you have high blood pressure ? Increasing your intake of fresh vegetables and fruits ? Eating lean proteins, such as fish, poultry, and legumes (beans and peas) and eating less red meat and processed meats ? Using low- or no-fat dairy products ? Using vegetable and nut oils in limited amounts ? Limiting sweets and processed foods such as chips, cookies, and baked goods Physical activity. Your healthcare provider may recommend that you increase your physica l activity if you have not beenas active as possible. Depending on your situation, your pr ovider may advise you to include moderate to vigorous intensity activity for at least 40 min utes each day for at least 3 to 4 days per week. Examples of moderate to vigorous activity i nclude: ? Walking at a brisk pace, about 3 to 4 miles per hour ? Jogging or running ? Swimming or water aerobics ? Hiking ? Dancing ? Martial arts ? Tennis ? Riding a bike or a stationary bike Weight management. If you are overweight or obese, your healthcare provider will work wi th you to lose weight and lower your BMI (body mass image) to a normal or near-normal level. Making dietary changes and increasing physical activity can help. Smoking. If you smoke, break the smoking habit. Enroll in a stop-smoking program to impr ove your chances of success. Stress. Learn stress management techniques to help you deal with stress in your home and work life. Date Last Reviewed: 11/14/201619995950-5069 [employer]. [address] [place] [address]. All righ ts reserved. This information is not intended as a substitute for professional medical care. Always follow your healthcare professional's instructions. Understanding the Link Between High Blood Pressure and Stroke Each day that your blood pressure is too high, your chances of having a stroke are increase d. Normal blood pressure is considered to be less than 120 over less than 80 millimeters of mercury (mmHg) or 120/80 mmHg. A stroke is a loss of brain function caused by a lack of bloo d to the brain. Stroke can result from the damage that ongoing high blood pressure causes in your vessels. If the affected vessel stops supplying blood to the brain, a stroke results. High blood pressure damages blood vessels Vessels thicken When blood presses against a vessel wall with too much force, muscles in the wall lose thei r ability to stretch. This causes the wall to thicken, which narrows the vessel passage and reduces blood flow. Clots form When blood pressure is too high, it can damage blood vessel nelson which results in scar tis micki. Fat and cholesterol (plaque) collect in the damaged spots. Blood cells stick to the chucho que, forming a mass called a clot. A clot can block blood flow in the vessel. Vessels break Sometimes blood flows with enough force to weaken a vessel wall. If the vessel is small or damaged, the wall can break. When this happens, blood leaks into nearby tissue and kills zach ls. Other cells may because blood cannot reach them. Know the symptoms of stroke During a stroke, blood supply to the brain is cut off. But with prompt medical help, a bett er recovery is more likely. Don t wait. Call 911 if you have any of the symptoms below: Sudden weakness or numbness on one side of the face or body, including a leg or an arm Sudden trouble seeing with one or both eyes Sudden double vision Sudden trouble talking, such as slurred speech Sudden severe headache Sudden problems using or understanding words Sudden dizziness or loss of balance Seizures for the first time Any of these symptoms thatoccur and then resolve Date Last Reviewed: 09/14/[id number] [employer]. [address] [place] [address], [place] [address]. All [facility] ts reserved. This information is not intended as a substitute for professional medical care. Always follow your healthcare professional's instructions. Stroke (Completed) You have had a stroke, or cerebrovascular accident (CVA). This is caused by a loss of blood flow to part of your brain. Ischemic type strokes can occur when a blood clot forms inside the carotid artery (main artery from the heart to the brain) or inside the heart and travels to the brain to lodge in a blood vessel and block blood flow. The other common ischemic cau se of stroke is a gradual narrowing of the arteries in the brain due to buildup of fatty dep osits (plaque). A clot can form at such a narrowing. A second type of stroke, hemorrhagic st roke, occurs when a blood vessel ruptures and stops the flow of blood to part of the brain. Symptoms Blocked blood flow in different areas of the brain can cause different symptoms. If you hav e had a stroke before, a new one may be different. A memory aid for the basic signs of a str namrata is F.A.S.T. F.A.S.T. F: Face drooping, or numbness on one side. This may be more noticeable when you ask the affected person to smile. A: Arm weakness or numbness. The affected person may have trouble using or lifting one s ilia. S: Speech difficulty. Speech may be slurred or hard to understand. The affected person m ay also use the wrong words. T: Time to call 911. Time is critical in treating a stroke. Call 911 as soon as you susp ect a stroke has happened even a small one. The sooner treatment is started the better, ev en if the symptoms go away. Other common symptoms of a stroke include: Having trouble getting the right words to come out Weakness in one leg Numbness on one side Trouble walking Trouble with coordination Trouble with vision Headache Confusion Dizziness Treatment After you have had a stroke, you are at risk of having another. Be sure to follow up with y our healthcare provider for further evaluation and treatment. If problems are found, your [facility] will recommend treatment with medicines and/or procedures. To reduce your chance of having another stroke, you may be prescribed medicines. These incl ude medicines to prevent blood clots, such as antiplatelet or anticoagulant medicines. You will likely be referred for some form of physical therapy including speech and occupati onal therapy if appropriate. Home care Rest at home and don't exert yourself for the next few days. If your healthcare provider has prescribed medicines, take them as directed. Follow-up care Follow up with your healthcare provider, or as advised. Additional tests may be needed. If you had an X-ray, CT scan, MRI, or ECG (electrocardiogram), it will be reviewed by a special ist. You will be notified of any new findings that will affect your care. Call 911 Call 911 if any of these occur: Any of your stroke symptoms worsen New problems with speech, confusion, vision, walking, coordination, facial droop, or wea kness or numbness on one side of your body Severe headache, fainting spell, dizziness, or seizure Chest pain or shortness of breath Remember F.A.S.T. (described above). If you notice warning signs and symptoms of stroke, CA LL 911 without delay. Date Last Reviewed: 06/17/201719994895-1586 [employer]. [address] [place] [address], [place] [address]. All righ ts reserved. This information is not intended as a substitute for professional medical care. Always follow your healthcare professional's instructions. Discharge Instructions for Stroke You have been diagnosed with or have a high risk for a stroke, ora TIA (transient ischemi c attack).During a stroke, blood stops flowing to part of your brain. This can damage area s in the brain that control other parts of the body. Symptoms after a stroke depend on which part of the brain has been affected. Stroke risk factors Once you ve had a stroke, you re at greater risk for another one. Listed below are some other factors that can increase your risk for a stroke: High blood pressure High cholesterol Cigarette or cigar smoking Diabetes Carotid or other artery disease Atrial fibrillation, atrial flutter,or other heart disease Not being physically active Obesity Certain blood disorders such as sickle cell anemia Drinking too much alcohol Abusing street drugs Race Gender Family history of stroke Diet high in salty, fried, or greasy foods Changes in daily living Doingyour regular tasks may be difficult after you ve had a stroke, but you can learn n ew ways to manage your daily activities. In fact, doing daily activities may help you to reg ain muscle strength. This can also help your affected arm or leg work more normally. Be latasha ent, give yourself time to adjust, and appreciate the progress you make. Daily activities You may be at risk of falling. Make changes to your home to help you walk more easily. A erapist will decide if you need an assistive device to walk safely. You may need to see an occupational therapist or physical therapist to learn new ways of do ing things. For example, you may need to make adjustments when bathing or dressing: Tips for showering or bathing Test the water temperature with a hand or foot that was not affected by the stroke. Use grab bars, a shower seat, a hand-held showerhead, and a long-handled brush. Tips for getting dressed Dress while sitting, starting with the affected side or limb. Wear shirts that pull easily over your head. Wear pants or skirts with elastic waistband s. Use zippers with loops attached to the pull tabs. Lifestyle changes Take your medicines exactly as directed. Don t skip doses. Begin an exercise program. Ask your provider how to get started. Also ask how much activ ity you should try to get on a daily or weekly basis. You can benefit from simple activities such as walking or gardening. Limit how much alcohol you drink. Men should haveno more than 2 alcoholic drinks a day . Women should limit themselves to 1 alcoholic drink per day. Know your cholesterol level. Follow your provider s recommendations about how to keep cholesterol under control. If you are a smoker, quit now. Join a stop-smoking program to improve your chances of green ccess. Ask your provider about medicines or other methods to help you quit. Learn stress management techniques to help you deal with stress in your home and work li fe. Diet Your healthcare provider will give you information on changes you may need to make to your diet, based on your situation. Your provider may recommend that you see a registered dietiti an for help with diet changes. Changes may include: Reducing the amount of fat and cholesterol you eat Reducing the amount of salt (sodium) in your diet, especially if you have high blood pre ssure Eating more fresh vegetables and fruits Eating more lean proteins, such as fish, poultry, and beans and peas (legumes) Eating less red meat and processed meats Using low-fat dairy products Limiting vegetable oils and nut oils Limiting sweets and processed foods such as chips, cookies, and baked goods Not eating trans fats. These are often found in processed foods. Don't eat any food that has hydrogenated listed in its ingredients. Follow-up care Keep your medical appointments. Close follow-up is important to stroke rehabilitation an d recovery. Some medicines require blood tests to check for progress or problems. Keep follow-up yovani ointments for any blood tests ordered by your providers. Call 911 Call 911 right awayif you have any of the following symptoms of stroke: Weakness, tingling, or loss of feeling on one side of your face or body Sudden double vision or trouble seeing in one or both eyes Sudden trouble talking or slurred speech Trouble understanding others Sudden, severe headache Dizziness, loss of balance, or a sense of falling Blackouts or seizures F.A.S.T. is an easy way to remember the signs of stroke. When you see these signs, you know that you need to call 911 fast. F.A.S.T. stands for: F is for face drooping. One side of the face is drooping or numb. When the person smiles , the smile is uneven. A is for arm weakness. One arm is weak or numb. When the person lifts both arms at the s ajay time, one arm may drift downward. S is for speech difficulty. You may notice slurred speech or trouble speaking. The perso n can't repeat a simple sentence correctly when asked. T is for time to call 911. If someone shows any of these symptoms, even if they go away, call 911 right away. Make note of the time the symptoms first appeared. Date Last Reviewed: 03/17/201719996914-8440 [employer]. [address] [place] [address], [place] [address]. All righ ts reserved. This information is not intended as a substitute for professional medical care. Always follow your healthcare professional's instructions. documented in this encounter Progress Notes Luan Gamble MD - 10/06/2019 9:45 AM PDT Patient: Buck Bell Medical Record: [id number] Date of Services: 10/06/2019 Referring Doctor: Dominic Carlin MD Chief Complaint: CVA History of Present Illness: Mr. Bell was a 74-year-old right-handed male, seen for neurologic evaluation, due to h istory of CVA. Patient is a patient of [facility]. I dis cussed with the patient in great detail his work-up consisting of an MRI of the brain perfor med on 05/22/2019 demonstrating a large infarction involving the right temporal occipital an d inferior parietal region, and left medial temporal occipital lobe. CTA of the head and neck on 04/27/2019 demonstrates old left MCA tract infarction and small left RAW JUICE WEIGHER infarction and old left lacunar infarct in the right caudate head with right ICA s tenosis but 50% in the cavernous region and 85% proximal ICA and left ICA has 50% stenosis. I discussed his underlying CTA of the head and neck and MRI consistent with strokes however , patient refused any such diagnosis. I also discussed with the patient his previous diagno sis seen by a neurologist Dr. sabrina jenkins in [facility] who also discussed his und erlying stroke. Patient been taking aspirin 81 mg daily and according to discharge was was receiving Plavix 75 mg in addition to a cholesterol-lowering agent which patient refused to take as he claim s he causes his dizziness. He was also opposed to be taking hypertensive medications and al so refused. Patient seems to be quite adamant that he did not have any history of strokes, though he complains of recurrent dizziness whether trying to walk or sitting still. He also complains of significant neck and low back pain with a previous history of cervical spine surgery. I discussed his previous MRI of the cervical spine lumbosacral spine perfor med on January 30, 2014 with his multilevel degenerative spine disease and multilevel cent ral canal and foraminal stenosis. Patient refused any PT/OT for gait training current type of intervention at this time. He prefers to be left alone at this point. Initial MMSE demonstrated score of 20/30 suggestive of mild to moderate cognitive dysfuncti on which is evident on the patient. I discussed in detail his underlying diagnosis and prognosis with Veronica Jimenez, nurse pra ctitioner and field case manager at [facility] with patient refusal to take medications and for any further work-up. Patient has significant evidence of dementia, vascular type, with behavioral changes with patient getting easily irritable, agitated ,and frustrated. Patient is high risk for future strokes given his risk factors in addition to his right int ernal carotid stenosis and his refusal to undergo evaluation with a vascular surgeon at this time. Patient is presently competent to make medical decisions for himself and should not drive a motor vehicle given his visual disturbance of right homonymous hemianopsia. I discussed with Ms. Jimenez to contact his family members to possibly help. Past Medical History: Diagnosis Date High blood pressure High cholesterol Hyperlipidemia Hypertension Stroke (HCC) Social History Socioeconomic History Marital status: Single Spouse name: Not on file Number of children: Not on file Years of education: Not on file Highest education level: Not on file Occupational History Not on file Social Needs Financial resource strain: Not on file Food insecurity: Worry: Not on file Inability: Not on file Transportation needs: Medical: Not on file Non-medical: Not on file Tobacco Use Smoking status: Never Smoker Smokeless tobacco: Never Used Substance and Sexual Activity Alcohol use: Yes Comment: 1 drink every 2 weeks Drug use: No Comment: Drug use: No Sexual activity: Not on file Lifestyle Physical activity: Days per week: Not on file Minutes per session: Not on file Stress: Not on file Relationships Social connections: Talks on phone: Not on file Gets together: Not on file Attends restoration service: Not on file Active member of club or organization: Not on file Attends meetings of clubs or organizations: Not on file Relationship status: Not on file Intimate partner violence: Fear of current or ex partner: Not on file Emotionally abused: Not on file Physically abused: Not on file Forced sexual activity: Not on file Other Topics Concern Not on file Social History Narrative Not on file Family History Problem Relation Age of Onset Heart defect Father Diabetes, NIDDM Father Heart defect Brother Diabetes Brother Kidney disease Brother Review of Systems: Denies headache, earache, nasal catarrh, diplopia, blurring of vision, d ysphagia, odynophagia, sore throat, neck masses, hearing loss, chest pain, palpitations, gilda rtness of breath, cough, hemoptysis, abdominal pain, diarrhea, constipation, bowel or bladde r dysfunction, hematuria, dysuria, lymphadenopathies, echhymoses, rashes, and homicidal or suicidal ideations. Current Outpatient Medications Medication Sig Dispense Refill amLODIPine (NORVASC) 10 MG tablet Take 10 mg by mouth daily. aspirin 81 MG tablet Take 81 mg by mouth daily. Aspirin Buf,UmVcol-[id number]-VhN, 81 MG TABS Take 81 mg by mouth. atorvaSTATin (LIPITOR) 80 MG tablet Take 80 mg by mouth daily. butalbital-acetaminophen (ALLZITAL) 25-325 mg per tablet Take 2 tablets by mouth every 4 hours as needed for Headaches. (Patient not taking: Reported on 10/06/2019) 45 tablet 0 clopidogrel (PLAVIX) 75 mg tablet Take 1 tablet by mouth daily. lisinopril (PRINIVIL, ZESTRIL) 10 mg tablet Take 10 mg by mouth daily. meclizine (ANTIVERT) 25 mg tablet Take 25 mg by mouth 3 times daily as needed. promethazine (PHENERGAN) 25 mg tablet Take 1 tablet by mouth every 6 hours as needed. 3 0 tablet 0 No current facility-administered medications for this visit. No Known Allergies Labs & Diagnostics: No results found for this or any previous visit (from the past 24 hour(s)). No results found. Neurological Examination: Vitals: 10/06/19 0930 BP: 134/80 Pulse: 77 Resp: 16 Temp: 36.6 C (97.8 F) PainSc: 0 - No pain MENTAL STATUS: The patient is awake, alert, and oriented to place, and person. Speech is fluent. Able to repeat, able to name simple objects, unable to recall any of the 3 object s after 1 and 5 minutes Mini Mental State Examination What day of the week is it?: 1 - Correct What is today's date?: 1 - Correct What month are we in?: 1 - Correct What year are we in?: 1 - Correct What season are we in?: 1 - Correct What city are we in?: 0 - Incorrect What state are we in?: 1 - Correct What county are we in?: 0 - Incorrect What hospital or building are we in?: 0 - Incorrect What floor are we on?: 1 - Correct Name 3 objects and take 1 second to say each. Then ask the patient to repeat the three item s. (Score one point for each correct answer): 3 Objects Recalled Serial 7's. Ask the patient to count backwards by 7's from 100. (Stop after 5 answers, scor e one point for each correct answer.): 4 After 2 minutes, ask for the 3 objects listed above in question 3. (Score one point for eac h correct answer): 0 Point to a pencil and a watch. Ask the patient to name each as you point. (Score one point for each correct answer.): 2 Ask the patient to repeat the following phrase: No ifs, ands or buts. (Score one point for the correct answer): 0 - Incorrect Ask the patient to perfom the following three-stage command: Take this piece of paper in yo ur left hand, fold it in half, and lay it on the table. (Score one point for each correct st ep): 3 Ask the patient to read and carry out the following written command: Close your eyes. (Scor e one point for correct response): 0 - Incorrect Ask the patient to write a sentence. It must contain a noun and a verb to make sense. Ignor e spelling errors. (Score one point for the correct answer): 1 - Correct Ask the patient to draw 2 interlocking pentagons. There must be 5 sides to each pentagon an d 4 interlocking sides.: 0 - Not successful MMSE Total Score MMSE Score (Maximum 30): 20 CRANIAL NERVES: Funduscopy revealed distinct disc margins. There are no exudates or hemor rhages noted. Pupils are 3-4 mm, equal and reactive to light and accommodation. Extraocular muscle movements are intact. He has a right homonymous hemianopsia. There is no nystagmus. There is no facial asymmetry. Facial sensation is intact. Palate elevates symmetrically. Strength in the trapezius and sternocleidomastoid muscles is normal. Tongue is midline on protrusion. MOTOR EXAMINATION: Moves extremities symmetrically though unable to move her shoulders cate aterally due to pain with bilateral shoulder dysfunction. Patient has hand grasp bilaterall y. SENSORY EXAMINATION: Withdraws to pain, unable to follow for sensory examination DEEP TENDON REFLEXES: 1 + and symmetric. PLANTAR RESPONSES: Downgoing bilaterally GAIT: Wide base, stance , ambulates with a cane, Unable to tandem gait, waddles on ambulat ion CEREBELLAR EXAMINATION: Minimal tremors, no cogwheel rigidity MISCELLANEOUS EXAM: Well kept, well nourished, Atraumatic, no evidence of frontal or maxil ramesh sinus tenderness, no neck masses, abdomen is soft and nontender, extremities equally p alpable pulses Clinical Impression: S/P CVA, RMCA, and LMCA, LPCA, thrombotic, non dominant henisphere, involving right parieta l, and right temporal lobes; left occipital and left posterior temporal lobes Cervical and lumbosacral spine strain due to multilevel degenerative spine disease Gait disorder Dementia, Vascular, mild to moderate, with behavioral changes, easy irritability,patient is incompetent in making his medical decisions with patient refusing to take medications and p erforming any work up despite being symptomatic Hypertension Recurrent dizziness,likely due to non compliant with meds and ica stenosis Right ICA stenosis , > 85 %, 04/2019, advised referral to vascular surgoen, however, refuse d at this time LICA stenosis, 50% Bilateral shoulder dysfunction Plan: Please schedule next follow up appt with in 6-7 months S/P CVA, RMCA, and LMCA, LPCA, thrombotic, non dominant henisphere Cervical and lumbosacral spine strain due to multilevel degenerative spine disease Gait disorder Dementia, Vascular, mild to moderate, with behavioral changes, easy irritability Hypertension Recurrent dizziness Right ICA stenosis , > 85 %, 04/2019, advised referral to vascular surgoen, however, refuse d at this time LICA stenosis, 50% Treatment Option- massage, Acupuncture, Over the counter heat patches (icy hot, thermacare, salonpas) , over the counter creams (aspercream, bengay cream, emu oi l), Relaxation therapy, Water therapy, Cortisone shots, Toradol Injections Suggest reading newspapers. magazines, perform word find exercises such as cross word puzz le, and scrabble, other puzzle games like Great [employer] & Pacific Tea, Wobeekng. Play computer/mobile applications such as FlowPay and Capptain GAMES Advised referral to vascular surgeon for Right ICA stenosis,>85 %, however, refused at this time Refusing all meds including blood pressure, Plavix, cholesterol lowering agents, or any wor k up Will speak with [place] or [facility] for his home status Continue ASA 81 mg daily Discussed his case with Veronica Jimenez, field case manager, nurse in [facility] with his diagnosis as mentioned above with multiple strokes in the past in addition to dementia, vascular mild to moderate with behavioral changes. Patient cannot make medical de cisions for himself as patient has been refusing most of his medications along with work-up. Due to his right internal carotid stenosis more than 85%, a vascular referral was advised but refused. In addition, given his right homonymous hemianopsia, he should not be driving a motor vehic le. Patient is not competent to make medical decisions for himself given his underlying dementi a. Any Questions please call TARIQ Raya or Dr. Gamble at [facility] Neurology Clinic Luan Gamble MD10/06/201910:17 AM Electronically signed NOTE: Part of this report was transcribed using voice recognition software. Every effort was made to ensure accuracy. 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
--- OUTSIDE RECORDS SUMMARY | ~2019-12-22 | XMS | Encounter Summary ---
Demographics + + + | Address | [address] | | | [place] [address] | + + + | Home Phone | | + + + | Preferred Language | Unknown | + + + | Marital Status | Single | + + + | Holiness Affiliation | [id number] | + + + | Race | Unknown | + + + | Ethnic Group | Unknown | + + + Author + + + | Author | [facility] | | | and [place] | + + + | Organization | [facility] | [...] Team Providers + +------+ + | Care Audiology Technician Name | Role | Phone | + +------+ + | Dominic Carlin MD | PCP | | + +------+ + Encounter Details +--------+ + + + + | Date | Type | Department | Care Team | Description | +--------+ + + + + | 01/19/ | Hospital | [facility] | Wes Melvin MD | Spinal stenosis; | | 2013 | Encounter | MED CTR XRAY [address] | Neck pain | | | | [place] | [place] [address] | | | | | [place] [address] | [phone] | | | | | [phone] | | | +--------+ + + + [...] | | | | | [place] [address] | | | | | | [phone] | | | | | | | | +--------+ + + + + | 03/13/ | Office | Neurology | Veronica, | | | 2019 | Visit | | [address] | | | | | | [address] [facility], | | | | | | [place] [address] | | | | | | [phone] | | | | | | | [...] COMPARISON: CERVICAL MRI MAY 16, 2013 FROM [facility] | LAB | | [facility] FINDINGS: An AP view and lateral views [...] PAINCOMPARISON: CERVICAL MRI MAY 16, 2013 FROM [facility] | | MEDICAL CENTERFINDINGS: An AP view [...] + | MISCELLANEOUS LAB | | | [phone] | + +---------+ + + | MISCELANIOUS LAB | | | [phone] | + +---------+ + + documented in this encounter Visit Diagnoses + + | Diagnosis | + + | Spinal stenosis Spinal stenosis, unspecified region other than cervical | + + | Neck pain Cervicalgia | + + documented in this encounter"
--- OUTSIDE RECORDS SUMMARY | ~2019-12-22 | XMS | Encounter Summary ---
Demographics + + + | Address | [address] | | | [place] [address] | + + + | Home Phone [...] Organization | [facility] [...] Team Providers + +------+ + | Care Braker Passenger Train Name | Role | Phone | + +------+ + | Dominic Carlin MD | PCP | | + +------+ + Encounter Details +--------+ + + + + | Date | Type | Department | Care Team | Description | +--------+ + + + + | 01/19/ | Hospital | [facility] | Wes Melvin MD | Spinal stenosis; | | 2013 | Encounter | MED CTR XRAY [address] | Neck pain | | | | [place] | [place] [address] | | | | | [place] [address] | [phone] | | | | | [phone] | | | +--------+ + + + [...] | | | | | [place] [address] | | | | | | [phone] | | | | | | | | +--------+ + + + + | 03/13/ | Office | Neurology | Veronica, | | | 2019 | Visit | | [address] | | | | | | [address] [facility], | | | | | | [place] [address] | | | | | | [phone] | | | | | | | [...] COMPARISON: CERVICAL MRI MAY 16, 2013 FROM [facility] | LAB | | [facility] FINDINGS: An AP view and [...] PAINCOMPARISON: CERVICAL MRI MAY 16, 2013 FROM [facility] | | MEDICAL CENTERFINDINGS: An AP [...] + | MISCELLANEOUS LAB | | | [phone] | + +---------+ + + | MISCELANIOUS LAB | | | [phone] | + +---------+ + + documented in this encounter Visit Diagnoses + + | Diagnosis | + + | Spinal stenosis Spinal stenosis, unspecified region other than cervical | + + | Neck pain Cervicalgia | + + documented in this encounter"
--- OUTSIDE RECORDS SUMMARY | ~2019-12-22 | XMS | Encounter Summary ---
Demographics + + + | Address | [address] | | | [place] [address] | + + + | Home Phone | | + + + | Preferred Language | Unknown | + + + | Marital Status | Single | + + + | Mu-Ism Affiliation | 1041 | + + + [...] Team Providers + +------+ + | Care Arranger Assembler Name | Role | Phone | [...] | | | | | cervical | [address] | [address] | | | | | disc | [address] | [place] | | | | | degeneration | [place], | [place], [place] | | | | | , | [place] [address] | [address] Phone: | | | | | unspecified | Phone: | [phone] | | | | | cervical | [phone] | Fax: | | | | | region | Fax: | [phone] | | | | | | [phone] | | +--------+--------+ + + + + [...] | | | DR [place], | [address] | to thrombosis of | | | | [place] [address] | | right middle | | | | [phone] | | cerebral artery | | | [...] be different from the original. Patient Instructions [facility] Neurology Clinic Dr. Luan Gamble, Neurologist [...] le, and scrabble, other puzzle games like Zahroof Valves, Medigram. Play computer/mobile applications such as QMCODES and Supponor Advised referral to vascular surgeon for Right ICA stenosis,>85 %, however, refused at this time Refusing all meds including blood pressure, Plavix, cholesterol lowering agents, or any wor k up [facility] speak with [facility] or [facility] for his home status Continue ASA 81 mg daily Use a cane for ambulation Any Questions please call TARIQ Raya or Dr. Gamble at [facility] Neurology Clinic Dizziness (Vertigo) and Balance [...] wor ld of difference. Date Last Reviewed: 03/17/201619996758-0051 [employer]. [address] [place] [address]. All righ ts reserved. This information is [...] about: All medicines you take, including prescription, fabn-[id number], herbs, and supplements Any other symptoms you [...] back, or jaw pain Date Last Reviewed: 03/17/201719995398-7431 [employer]. [address] [place] [address], [place] [address]. All righ ts reserved. This information is [...] home and work life. Date Last Reviewed: 11/14/201619994673-8469 [facility]. [address] [place] [address]. All righ ts reserved. This information is [...] thatoccur and then resolve Date Last Reviewed: 09/14/201619995209-0032 [employer]. [address] [place] [address], [place] [address]. All [facility] ts reserved. This information is not intended [...] treatment. If problems are found, your he adena health systemcare provider will recommend treatment with medicines and/or [...] LL 911 without delay. Date Last Reviewed: 06/17/201719993800-1722 [employer]. [address] [place] [address], [place] [address]. All righ ts reserved. This information is [...] the symptoms first appeared. Date Last Reviewed: 03/17/201719997928-7727 [employer]. [address] [place] [address], [place] [address]. All righ ts reserved. This information is not intended as a substitute for professional medical care. Always follow your healthcare professional's instructions. documented in this encounter Progress Notes Luan Gamble MD - 10/06/2019 9:45 AM PDT Patient: Buck Bell Medical Record: [id number] Date of Services: 10/06/2019 Referring Doctor: Dominic Carlin MD Chief Complaint: CVA History of Present Illness: Mr. Bell was a 74-year-old right-handed male, seen for neurologic evaluation, due to h istory of CVA. Patient is a patient of [facility]. I dis cussed with the patient in great detail his work-up consisting of an MRI of the brain perfor med on 05/22/2019 demonstrating a large infarction involving the right temporal occipital an d inferior parietal region, and left medial temporal occipital lobe. 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 sabrina jenkins in [facility] who also discussed his und erlying stroke. [...] with Veronica Jimenez, nurse pra ctitioner and caseworker at [facility] with patient refusal to take medications and [...] file Gets together: Not on file Attends congregation service: Not on file Active member of [...] Take 81 mg by mouth daily. Aspirin Buf,HuYdya-DwHaot-NpT, 81 MG TABS Take 81 mg by [...] le, and scrabble, other puzzle games like Zahroof Valves, MyBeautyCompareng. Play computer/mobile applications such as QMCODES and Synthace GAMES Advised referral to vascular surgeon for Right ICA stenosis,>85 %, however, refused at this time Refusing all meds including blood pressure, Plavix, cholesterol lowering agents, or any wor k up Will speak with [facility] or [facility] for his home status Continue ASA 81 mg daily Discussed his case with Veronica Jimenez, caseworker, nurse in [facility] with his diagnosis as mentioned above with [...] call TARIQ Raya or Dr. Gamble at [facility] Neurology Clinic Luan Gamble MD10/06/201910:17 AM Electronically signed NOTE: Part of this report was transcribed using voice recognition software. Every effort was made to ensure accuracy. However, inadvertent computerize cooker sulfite errors may be present documented in this [...] | | | | [address] [facility] | | | | | | [place] [address] | | | | | | [phone] | | | | | | | | +--------+ + + + + | 03/13/ | Office | Neurology | Veronica, | | | 2019 | Visit | | [address] | | [address] [place], | | | | | | [place] [address] | | | | | | [phone] | | | | | | | [...]
--- OUTSIDE RECORDS SUMMARY | ~2019-12-22 | XMS | Encounter Summary ---
Demographics + + + | Address | [address] | | | [place] [address] | + + + | Home Phone [...] Team Providers + +------+ + | Care Honest John Rocket Crew Member Name | Role | Phone | + +------+ + | Dominic Carlin MD | PCP | | + +------+ + Reason for Visit +--------+--------+ + | Reason | Onset | Comments | | | Date | | +--------+--------+ + | Other | 06/22/ | Change of surgery date | | | 2014 | | +--------+--------+ + Encounter Details +--------+ + + + + | Date | Type | Department | Care Team | Description | +--------+ + + + + | 06/22/ | Telephone | [facility] | Wes Melvin MD | Other (Change of | | 2014 | | NEUROSURGERY [address] | surgery date) | | | | [address] | [place] [address] | | | | | [place] | [phone] | | | | | [address] | | | | | | [phone] | | | +--------+ + + + [...] this encounter Miscellaneous Notes Telephone Encounter - Tamie Gonzalez - 06/25/2014 8:20 AM Francisco called back Edna durham on the phone, I updated him on the voicemail that Edna left him about his surgery date changing to 07/26/14. Buck said he was fine with that. elephone Encounter - Edna Mcdermott - 06/22/2014 3:14 PM PSTDrStephanie Melvin asks for Buck's surgery to be rescheduled to 07/26/14. Detailed voicemail ashlie nuñez left for Buck to update him regarding this date change. Requested a callback.Electronic ally signed by Edna Nuris Mcdermott at 06/22/2014 3:15 PM PSTdocumented in this encounter Plan of Treatment +--------+ [...] | | | | | | [address] | | | | | | [place] [address] | | | | | | [phone] | | | | | | | | +--------+ + + + + | 03/13/ | Office | Neurology | Veronica, | | | 2020 | Visit | | [address] | | | | [address] [place], | | | | | | [place] [address] | | | | | | [phone] | | | | | | | | +--------+ + + + + documented as of this encounter Visit Diagnoses Not on filedocumented in this encounter"
--- OUTSIDE RECORDS SUMMARY | ~2019-12-22 | XMS | Encounter Summary ---
Demographics + + + | Address | [address] | | | [place] [address] | + + + | Home Phone [...] Providers + +------+ + | Care Personal Financial Counselor Name | Role | Phone | + [...] + + | 10/29/ | Telephone | [facility] | Salvador Jose MD | Paperwork | | 2019 | | VASCULAR SURGERY | [address] | | | | | [address] | [address] [place] | | | | | E [place], [place] | [place] [address] | | | | | [address] | [phone] | | | | | [phone] | | | +--------+ + + + [...] that was sent as well. Please contact [phone] If this is a symptom based call, was patient offered triage? Not Applicable If this is a symptom based call and you were unable to immediately transfer the call to a brandon jane director of early childhood education was caller made aware that if at [...] HEALTHCARE | | | | | | [place] [address] | | | | | | [phone] | | | | | | | | +--------+ + + + + | 03/13/ | Office | Neurology | Veronica, | | | 2019 | Visit | | [address] | | | | | | [address] [place], | | | | | | [place] [address] | | | | | | [phone] | | | | | | | | +--------+ + + + + documented as of this encounter Visit Diagnoses Not on filedocumented in this encounter"
--- OUTSIDE RECORDS SUMMARY | ~2019-12-22 | XMS | Encounter Summary ---
Demographics + + + | Address | [address] | | | [place] [address] | + + + | Home Phone [...] + + + | Author | [facility] | | | and [place] | + + + | Organization | [facility] | | | and [...] Team Providers + +------+ + | Care Finish Off Operator Name | Role | Phone | + +------+ + | Dominic Carlin MD | PCP | | + +------+ + Reason for Visit + +--------+ + | Reason | Onset | Comments | | | Date | | + +--------+ + | Medication Refill | 07/17/ | | | | 2016 | | + +--------+ + Encounter Details +--------+--------+ + + + | Date | Type | Department | Care Team | Description | +--------+--------+ + + + | 07/17/ | Refill | [facility] | Haroldo King | Medication Refill | | 2015 | | NEUROSURGERY [address] | [address] | | | | | [address] | [address] [place], [place] | | | | | [place], [place] | [id number] | | | | | [address] | | | | | | [phone] | | | +--------+--------+ + + + [...] this encounter Miscellaneous Notes Telephone Encounter - Malu Grant RN - 07/23/2015 9:17 AM PSTMark called back. He wa s advised per Haroldo OLMOS, he verbalized understanding. elephone Encounter - Edna Mcdermott - 07/22/2015 3:45 PM PST2nd voicemail message left for Buck. Ask that he please call to advise per NICKOLAS Simmons. Cell phone does not having a working voicemail. elephone Encounter - Malu Grant RN - 07/19/19 12:14 PM PSTCalled and left VM requesting a callback. elephone Encounter - Haroldo King PA - 016 9:49 AM PSTHe should contact his primary care provider for refills on medicationsElect ronically signed by NICKOLAS Schuster at 07/19/2015 9:49 AM PSTTelephone Encounter - Edna Mcdermott - 07/18/2015 4:35 PM PSTS/P cervical fusion 07/26/14 Refill request received from the pharmacy. Last refill NICKOLAS Barbour indicated that future refills would need to be completed through patient's PCP. Rx is attached. Please approve/deny. documented in this encounter Plan of Treatment [...] | | | | | [address] [facility] | | | | | | [place] [address] | | | | | | [phone] | | | | | | | | +--------+ + + + + | 03/13/ | Office | Neurology | Veronica, | | | 2019 | Visit | | [address] | | | | | | [address] [facility], | | | | | | [place] [address] | | | | | | [phone] | | | | | | | | +--------+ + + + + documented as of this encounter Visit Diagnoses + + | Diagnosis | + + | S/P cervical spinal fusion - Primary Arthrodesis status | + + documented in this encounter"
--- OUTSIDE RECORDS SUMMARY | ~2019-12-22 | XMS | Encounter Summary ---
Demographics + + + | Address | [address] | | | [place] [address] | + + + | Home Phone [...] + | Author | [facility] | + + + | Organization | [facility] | + + + | Address | Unknown | + + + | Phone | Unavailable | + + + Support + + +---------+ + | Name | Relationship | Address | Phone | + + +---------+ + | Gautam Ray | ECON | Unknown | | + + +---------+ + Care Team Providers + +------+ + | Care Casino Cashier Manager Name | Role | Phone | [...] | | | | and tendons | [facility] | [facility] | | | | | in shoulder | Rd | Rd [place], | | | | | region, | [place], [place] | [place] | | | | | unspecified | [address] | [address] | | | | | Procedures | Phone: | Phone: | | | | | CONSULT TO | [phone] | [phone] | | | | | ORTHOPEDICS | Fax: | Fax: | | | | | AND | [phone] | [phone] | | | | | REHABILITATI | [...] | | | | | | [address] [place], | | | | | | | [place] | | | | | | | [address] | | | | | | | Phone: | | | | | | | [phone] | | | | | | | Fax: | | | | | | | [phone] | +--------+--------+ + + + + Encounter Details +--------+---------+ + + + | Date | Type | Department | Care Team | Description | +--------+---------+ + + + | 04/19/ | Office | Orthopaedics | Jaswant Angeles MD | Unspecified | | 2007 | Visit | [facility] | [address] | Disorders of Bursae | | | | for Health and | [address] | and Tendons in | | | | Healing [address] | [place], [place] | Shoulder Region | | | | [facility] for | [address] | (Primary Dx) | | | | Health and Healing, | [phone] | | | | | | | | | | | Floor [place], [place] | | | | | | [address] | | | | | | [phone] | | | +--------+---------+ + + + [...]
--- OUTSIDE RECORDS SUMMARY | ~2019-12-22 | XMS | Encounter Summary ---
Demographics + + + | Address | [address] | | | [place] [address] | + + + | Home Phone [...] | Organization | [facility] [...] Team Providers + +------+ + | Care Spa Experience Coordinator Name | Role | Phone | + [...] [address] | | | | | | [place], [place] | | | | | | [address] | | | | | | [phone] | | | +--------+ + + + [...] | | | | | [address] [facility] | | | | | | [place] [address] | | | | | | [phone] | | | | | | | | +--------+ + + + + | 03/13/ | Office | Neurology | Veronica, | | | 2019 | Visit | | [address] | | | | | | [address] [place], | | | | | | [place] [address] | | | | | | [phone] | | | | | | | | +--------+ + + + + documented as of this encounter Visit Diagnoses + + | Diagnosis | + + | Lumbago | + + documented in this encounter"
--- OUTSIDE RECORDS SUMMARY | ~2019-12-22 | XMS | Encounter Summary ---
Demographics + + + | Address | [address] | | | [place] [address] | + + + | Home Phone | | + + + | Preferred Language | Unknown | + + + | Marital Status | Single | + + + | Mandaeism Affiliation | [id number] | + + + [...] Team Providers + +------+ + | Care Automotive General Sales Manager Name | Role | Phone | [...] | | [address] [place] | [place] [address] | | | | | [place] [address] | | | | | | [phone] | | | +--------+ + + + [...] [place] | | | | | | [place] [address] | | | | | | [phone] | | | | | | | | +--------+ + + + + | 03/13/ | Office | Neurology | Veronica, | | | 2019 | Visit | | [address] | | | | | | [address] [facility] [place], | | | | | | [place] [address] | | | | | | [phone] | | | | | | | [...]
--- OUTSIDE RECORDS SUMMARY | ~2019-12-22 | XMS | Encounter Summary ---
Demographics + + + | Address | [address] | | | [place] [address] | + + + | Home Phone [...] Team Providers + +------+ + | Care Shift Production Supervisor Name | Role | Phone | [...] | | | | CENTER [address] | [address] | unspecified | | | | [place], [place] | [place], [place] | chronicity pattern, | | | | [address] | [address] | unspecified headache | | | | [phone] | | type (Primary Dx); | | [...] other worsening symptoms. Please follow-up with your [facility] care physician. documented in this encounter Medications [...] might be d ifferent from the original. [facility] Buck Bell Emergency Department Encounter Note [address] [place] [address] PCP:Dominic Carlin MD [phone] eMERGENCY dEPARTMENT eNCOUnter [...] Fusion; Surgeon: Wes Elmore am, MD; Location: [facility] MAIN OR OTHER SURGICAL HISTORY UNLISTED PROCEDURE ARTHROSCOPY - Bilateral Rotator Cuff ROTATOR CUFF REPAIR Bilateral SPINE SURGERY 2009 Cervical Surgery TONSILLECTOMY AND ADENOIDECTOMY CURRENT MEDICATIONS TEACHER ASSISTANT Home Medications Medication Sig amLODIPine (NORVASC) 10 [...] deficits noted, no facial assymetry noted. Equal lead slot technician in all extremities RADIOLOGY Ct Angiogram Head [...] in the left occipital lobe and left grocery manager ior temporal lobe within the BAIL ATTACHER territory. An old small lacunar infarct is [...] cavity is unremarkable. The parapharyngeal, retropharyngeal, and final inspector and tester spaces are normal. The parotid glands and [...] right MCA territory infarct, old small left BAIL ATTACHER territo ry infarct, old small lacunar infarct [...] this chart may have been created with Zones voice recognition software. Occasi onal wrong-word or [...] | | | | | [address] [facility] | | | | | | [place] [address] | | | | | | [phone] | | | | | | | | +--------+ + + + + | 03/13/ | Office | Neurology | Veronica, | | | 2019 | Visit | | [address] | | | | | | [address] [place], | | | | | | [place] [address] | | | | | | [phone] | | | | | | | [...] [facility] | | old small left BAIL ATTACHER territory infarct, old small lacunar infarct in [...] and left posterior temporal lobe within the BAIL ATTACHER | | | territory. An old small [...] is | | | moderately hypoplastic. The netezza architect are normal. CTA NECK FINDINGS: | | [...] | | | The parapharyngeal, retropharyngeal, and final inspector and tester spaces are | | | normal. The [...] left | | posteriortemporal lobe within the BAIL ATTACHER territory. An old small lacunar infarct is [...] vertebral artery | | ismoderately hypoplastic. The netezza architect are normal.CTA NECK FINDINGS:Aorta and Branches: | [...] right MCA territory infarct, old small left BAIL ATTACHER territory infarct, old | | smalllacunar infarct [...] the right side.Dictated and Signed by: Lloyd Sehr MD | | Electronically signed: 04/27/2019 11:01 AM | |proximally. The left vertebral artery is mildly hypoplastic. The bilateral | |vertebral arteries are patent otherwise. | | | |The nasopharynx, oropharynx, epiglottis, hypopharynx, and larynx are normal. The | |oral cavity is unremarkable. The parapharyngeal, retropharyngeal, and final inspector and tester | |spaces are normal. The parotid glands [...] right MCA territory infarct, old small left BAIL ATTACHER territory infarct, old small | |lacunar infarct [...] | | | | | | [employer] | | | | | [...] [address] | [place] | [phone] | | [facility] | | [address] | | | - LABORATORY | | [...] method in use as of | | KunerangoStephanie PENNY | | | | July 13, [...] + | [facility] | [address] | [place]ez [place] | [phone] | | [facility] | | [address] | | | - LABORATORY | | [...] mL/min/1.73m2 | [facility] | | | [employer] | | | MEDICAL | | | [...] [address] | [place] | [phone] | | [facility] | | [address] | | | - LABORATORY | | [...] ST. | [address] | [place] | [phone] | | [facility] | | [address] | | | - LABORATORY | | [...] | | | | | Intravenous, ONCE, [facility] 04/27/19 | | AM PST | [...] | | | | CT Scan, Starting [facility] 04/27/19 | | | | | [...]
--- OUTSIDE RECORDS SUMMARY | ~2019-12-22 | XMS | Encounter Summary ---
Demographics + + + | Address | [address] | | | [place] [address] | + + + | Home Phone [...] + + + | Author | [facility] | | | and [place] | + + + | Organization | [facility] | | | [...] Team Providers + +------+ + | Care Student Life Vice President Name | Role | Phone | + [...] Radiology | Diagnoses | Damon | [facility] [address] | | Review | | | Carotid | Salvador Martin MD | [address] | | | | | stenosis, | [address] | | | | | bilateral | [address] | [address] | | | | | Procedures | [address] | [place], [place] | | | | | CT Angiogram | [place] | [address] | | | | | Head Neck w | [place], [place] | Phone: | | | | | Contrast | [address] | [phone] | | | | | | Phone: | Fax: | | | | | | [phone] | [phone] | | | | | | Fax: | | | | | | | [phone] | | + +--------+ + + + [...] | | Surgery | Right | Sydney, RETRIEVAL SPECIALIST | Salvador Martin MD | | | | | Carotid | [address] | [address] | | | | | Artery | [address] | [address] | | | | | Occlusion - | [place], | [address]ND [place] | | | | | 85% | [place] [address] | [place], [place] | | | | | | Phone: | [address] Phone: | | | | | | [phone] | [phone] | | | | | | Fax: | Fax: | | | | | | [phone] | [phone] | +--------+--------+ + + + + Encounter Details +--------+ + + + + | Date | Type | Department | Care Team | Description | +--------+ + + + + | 10/31/ | Virtual | [facility] | Salvador Jose MD | Carotid stenosis, | | 2019 | Office | VASCULAR SURGERY | [address] | bilateral (Primary | | | Visit | [address] | [address] [place] | Dx) | | | | E [place], [place] | [place] [address] | | | | | [address] | [phone] | | | | | [phone] | | | +--------+ + + + [...] the plan. Clinical discussion length: 11-20 min ([id number]) Patient has not been seen in office [...] carotid stenosis. He is a patient of [facility]. He was seen at the ED at [facility] for headache and ne ck pain complaints in 04/2019 and during this time had a CTA Head and Neck performed. 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 Given his recurrent dizziness and prev ious [...] Fusion; Surgeon: Wes Elmore am, MD; Location: [facility] MAIN OR OTHER SURGICAL HISTORY [...] HOSPITAL | | | | | | [place] [address] | | | | | | [phone] | | | | | | | | +--------+ + + + + | 03/13/ | Office | Neurology | Veronica, | | | 2019 | Visit | | [address] | | | | | | [address] [place], | | | | | | [place] [address] | | | | | | [phone] | | | | | | | [...]
--- OUTSIDE RECORDS SUMMARY | ~2019-12-22 | XMS | Encounter Summary ---
Demographics + + + | Address | [address] | | | [place] [address] | + + + | Home Phone | | + + + | Preferred Language | Unknown | + + + | Marital Status | Single | + + + | Scientologist Affiliation | Unknown | + + + | Race | or | + + + | Ethnic Group | Not or | + + + Author + + + | Author | [facility] | + + + | Organization | [facility] | + + + | Address | Unknown | + + + | Phone | Unavailable | + + + Support + + +---------+ + | Name | Relationship | Address | Phone | + + +---------+ + | Gautam Ray | ECON | Unknown | | + + +---------+ + Care Team Providers + +------+ + | Care Test Director Name | Role | Phone | + +------+ + PCP | Unavailable | + +------+ + Reason for Visit + + + | Reason | Comments | + + + | EMG - | EMG of left shoulder | | Electromyography | | + + + Encounter Details +--------+ + + + + | Date | Type | Department | Care Team | Description | +--------+ + + + + | 02/19/ | Procedure | [facility] | Gael Mcclellan MD | EMG - | | 2007 | | & Rehabilitation | [address] | Electromyography | | | | [address] | [place], | (EMG of left | | | | [address], [address] | [place] [address] | shoulder) | | | | [address], | [phone] | | | | | [address] | | | | | | [place], [place] | | | | | | [address] | | | | | | [phone] | | | +--------+ + + + [...] documented as of this encounter Progress Notes Gael Mcclellan - 02/20/2008 1:12 PM PDT Buck Bell is a 63 y.o. male who is referred by Dr. 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 Electrodiagnostic studies have been performed today. The data and waveforms have b een scanned into Edevate. The summary is as follows: Motor Nerve Conduction Studies: The left radial response is normal. Sensory Nerve Conduction Studies: The left radial response is normal. Needle Electromyography: There is abnormal spontaneous activity in the left biceps and deltoid. Abnormal motor unit action potentials are found in the left deltoid with polyphasia with de creased recruitment. There is also slightly decreased recruitment in the left biceps. Normal motor unit action potential morphology/activation and recruitment is found in the le ft pronator teres, triceps, infraspinatus and cervical paraspinal muscles. Impression: This is an abnormal study. 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 An order for a cervical spine MRI has been added to his shoulder MRI and further follow-up recommended for any cervical spine abnormalities.Electronically signed by Gael Mcclellan at 8:28 AM PDTdocumented in this encounter Plan of Treatment + + +--------+ + + | Name | Type | Priori | Associated Diagnoses | Order Schedule | | | | ty | | | + + +--------+ + + | AR NERVE CONDUCTION | Procedures | Routin | Cervicalgia | Ordered: 02/20/2008 | | TEST,MOTOR | | e | Cervical Radiculitis | | | | | | Pain in Joint, | | | | | | Shoulder Region | | + + +--------+ + + | AR NERVE | Procedures | Routin | Cervicalgia | Ordered: 02/20/2008 | | CONDUCTION,EA | | e | Cervical Radiculitis | | | NERVE,MOTOR,SENSORY | | | Pain in Joint, | | | | | | Shoulder Region | | + + +--------+ + + | AR MUSCLE TEST, ONE | Procedures | Routin | Cervicalgia | Ordered: 02/20/2008 | | LIMB | | e | Cervical Radiculitis | | | | | | Pain in Joint, | | | | | | Shoulder Region | | + + +--------+ + + | MRI SPINE CERVICAL | Imaging | Routin | Cervicalgia | Ordered: 02/20/2008 | | WO CONTRAST | | e | Cervical Radiculitis | | | | | | Pain in Joint, | | | | | | Shoulder Region | | + + +--------+ + + documented as of this encounter Procedures + +--------+ + + + | Procedure Name | Priori | Date/Time | Associated Diagnosis | Comments | | | ty | | | | + +--------+ + + + | EMG/NERVE CONDUCTION | | 02/20/2008 | | Results for this | | STUDIES,ADULT - | | 3:08 PM | | procedure are in the | | NEUROLOGY | | PDT | | results section. 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
--- OUTSIDE RECORDS SUMMARY | ~2019-12-22 | XMS | Encounter Summary ---
Demographics + + + | Address | [address] | | | [place] [address] | + + + | Home Phone | | + + + | Preferred Language | Unknown | + + + | Marital Status | Single | + + + | Druze Affiliation | Unknown | + + + | Race | or | + + + | Ethnic Group | Not or | + + + Author + + + | Author | [facility] | + + + | Organization | [facility] | + + + | Address | Unknown | + + + | Phone | Unavailable | + + + Support + + +---------+ + | Name | Relationship | Address | Phone | + + +---------+ + | Gautam Ray | ECON | Unknown | | + + +---------+ + Care Team Providers + +------+ + | Care Merchandising Manager Name | Role | Phone | [...] [address] | [place], | (EMG of left | | | | [address], [address] | [place] [address] | shoulder) | | | | [address], | [phone] | | | | | [address] | | | | | | [place], [place] | | | | | | [address] | | | | | | [phone] | | | +--------+ + + + [...] and waveforms have b een scanned into Dizkon. The summary is as follows: Motor Nerve [...] | + + +--------+ + + | [place] NERVE CONDUCTION | Procedures | Routin | Cervicalgia | Ordered: 02/20/2008 | | TEST,MOTOR | | e | Cervical Radiculitis | | | | | | Pain in Joint, | | | | | | Shoulder Region | | + + +--------+ + + | [place] NERVE | Procedures | Routin | Cervicalgia | Ordered: 02/20/2008 | | CONDUCTION,EA | | e | Cervical Radiculitis | | | NERVE,MOTOR,SENSORY | | | Pain in Joint, | | | | | | Shoulder Region | | + + +--------+ + + | [place] MUSCLE TEST, ONE | Procedures | Routin [...]
--- OUTSIDE RECORDS SUMMARY | ~2019-12-22 | XMS | Encounter Summary ---
Demographics + + + | Address | [address] | | | [place] [address] | + + + | Home Phone [...] Providers + +------+ + | Care Manager Fine Name | Role | Phone | + +------+ + | Dominic Carlin MD | PCP | | + +------+ + Encounter Details +--------+ + + + + | Date | Type | Department | Care Team | Description | +--------+ + + + + | 07/07/ | Orders Only | [facility] | Wes Melvin MD | Spinal stenosis | | 2014 | | NEUROSURGERY [address] | [address] | (Primary Dx); Neck | | | | [address] | [place] [address] | pain | | | | [place], [place] | [phone] | | | | | [address] | | | | | | [phone] | | | +--------+ + + + [...] | | | | [address] | | | | | | [place] [address] | | | | | | [phone] | | | | | | | | +--------+ + + + + | 03/13/ | Office | Neurology | Veronica, | | | 2019 | Visit | | [address] | | | | | [address] [place], | | | | | | [place] [address] | | | | | | [phone] | | | | | | | | +--------+ + + + + documented as of this encounter Results XR Cervical Spine 4 or 5 Vws (01/19/2014 8:52 AM PDT) + + | Specimen | + + | | + + + + + | Narrative | Performed At | + + + | FOUR VIEWS CERVICAL SPINE 01/19/2014 8:52 AM CLINICAL HISTORY: | MISCELANIOUS | | NECK PAIN COMPARISON: CERVICAL MRI MAY 16, 2013 FROM [facility] | LAB | | [facility] FINDINGS: An AP view and lateral [...] PAINCOMPARISON: CERVICAL MRI MAY 16, 2013 FROM [facility] | | MEDICAL CENTERFINDINGS: An AP [...] + + | Performing | Address | City[facility] | Phone Number | | Organization | | | | + +---------+ + + | MISCELLANEOUS LAB | | | [phone] | + +---------+ + + | MISCELANIOUS LAB | | | [phone] | + +---------+ + + documented in this encounter Visit Diagnoses + + | Diagnosis | + + | Spinal stenosis - Primary Spinal stenosis, unspecified region other than cervical | + + | Neck pain Cervicalgia | + + documented in this encounter"
--- OUTSIDE RECORDS SUMMARY | ~2019-12-22 | XMS | Encounter Summary ---
Demographics + + + | Address | [address] | | | [place] [address] | + + + | Home Phone [...] Providers + +------+ + | Care Clinical Data Programmer Name | Role | Phone | + [...] | [facility] | MD Kathy [address] | | | | | IMAGING [address] | Raymon FRAZIER | | | | | [address] [place] | [place] [address] | | | | | [place] [address] | | | | | | [phone] | | | +--------+ + + + [...] | | | | | TOY Richie [facility] | | | | | | [place] [address] | | | | | | [phone] | | | | | | | | +--------+ + + + + | 03/13/ | Office | Neurology | Veronica, | | | 2019 | Visit | | HALI [address] | | | | | | [address] [place], | | | | | | [place] [address] | | | | | | [phone] | | | | | | | | +--------+ + + + + documented as of this encounter Procedures + +--------+ + + + | Procedure Name | Priori | Date/Time | Associated Diagnosis | Comments | | | ty | | | | + +--------+ + + + | MRI CERVICAL SPINE | Routin | 08/15/2004 | | Results for this | | WO CONTRAST | e | 12:00 AM | | procedure are in the | | | | PST | | results section. | + +--------+ + + + documented in this encounter Results MRI Cervical Spine wo Contrast (08/15/2004 12:00 AM PST) + + | Specimen [...]
--- OUTSIDE RECORDS SUMMARY | ~2019-12-22 | XMS | Encounter Summary ---
Demographics + + + | Address | [address] | | | [place] [address] | + + + | Home Phone | | + + + | Preferred Language | Unknown | + + + | Marital Status | Single | + + + | Spiritism Affiliation | 1041 | + + + | Race | Unknown | + + + | Ethnic Group | Unknown | + + + Author + + + | Author | [facility] | | | and [place] | + + + | Organization | [facility] | | | [...] Team Providers + +------+ + | Care Head Start Teacher Name | Role | Phone | + +------+ + | Dominic Carlin MD | PCP | | + +------+ + Reason for Visit + +--------+ + | Reason | Onset | Comments | | | Date | | + +--------+ + | Appointment | 12/14/ | | | | 2013 | | + +--------+ + Encounter Details +--------+ + + + + | Date | Type | Department | Care Team | Description | +--------+ + + + + | 12/14/ | Telephone | [facility] | Wes Melvin MD | Appointment | | 2013 | | NEUROSURGERY [address] | [address] | | | | | [address] | [place] [address] | | | | | [place] | [phone] | | | | | [address] | | | | | | [phone] | | | +--------+ + + + [...] Notes Telephone Encounter - Edna Mcdermott - 12/19/2013 2:00 PM PDTRescheduled to 01/19/14 @ 9 :30. Renita at [facility] is updated at this time: She will send an updated authorization status. elephone Encounter - Milla Brooks - 12/19/2013 1:14 PM [facility] call to scheduleElectronically signed by Milla Brooks at 014 1:14 PM PDTTelephone Encounter - Tamie Gonzalez - 12/19/2013 9:08 AM PDTPatient john led back to talk to edna, you can reach him at his work number listed below [phone] signed by Tamie Gonzalez at 12/19/2013 9:09 AM PDTTelephone E tristinunter - Edna Mcdermott - 12/18/2013 11:38 AM PDTLeft Buck a message to reschedule his previously cancelled appointment. Will update Renita once this has been rescheduled. Elect ronically signed by Edna Mcdermott at 12/18/2013 11:38 AM PDTTelephone Encounter - Milla Ashton - 12/14/2013 1:55 PM PDTEsther from [facility] called to [facility] F U [facility]t. Patient would like to schedule a new patient visit since he cancelled his previous. Please call patient to schedule. 1 :56 PM PDTdocumented in this encounter Plan of [...] | | | | TOY E [facility] | | | | | | [place] [address] | | | | | | [phone] | | | | | | | | +--------+ + + + + | 03/13/ | Office | Neurology | Veronica, | | | 2019 | Visit | | HALI Adams [address] | | | | | [address] [place], | | | | | | [place] [address] | | | | | | [phone] | | | | | | | | +--------+ + + + + documented as of this encounter Visit Diagnoses Not on filedocumented in this encounter"
--- OUTSIDE RECORDS SUMMARY | ~2019-12-22 | XMS | Encounter Summary ---
Demographics + + + | Address | [address] | | | [place] [address] | + + + | Home Phone [...] Providers + +------+ + | Care Solid Plasterer Name | Role | Phone | + [...] pain | HALI Grimes | [address] | | | | | Other | [address] | [place], | | | | | secondary | [address] | [place] | | | | | kyphosis, | [place], | [address] | | | | | cervical | [place] [address] | Phone: | | | | | region | Phone: | [phone] | | | | | Cervical | [phone] | Fax: | | | | | spinal | Fax: | [phone] | | | | | stenosis | [phone] | | | | | | Procedures [...] Closed | | Radiology | Diagnoses | [place], | [facility] | | | | | Neck pain | HALI Grimes | [address] | | | | | Other | [address] | [place], | | | | | secondary | [address] | [place] | | | | | kyphosis, | [place], | [address] | | | | | cervical | [place] [address] | Phone: | | | | | region | Phone: | [phone] | | | | | Cervical | [phone] | Fax: | | | | | spinal | Fax: | [phone] | | | | | stenosis | [phone] | | | | | | Procedures [...] + + | 05/22/ | Hospital | [facility] | Sydney Lennon, | Neck pain; Other | | 2020 | Encounter | MED CTR MRI [address] | 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
--- OUTSIDE RECORDS SUMMARY | ~2019-12-22 | XMS | Encounter Summary ---
Demographics + + + | Address | [address] | | | [place] [address] | + + + | Home Phone [...] Team Providers + +------+ + | Care Farm Management Supervisor Name | Role | Phone | [...] | | | | MRI Lumbar | [facility] | [place] | | | | | Spine wo | [place] [address] | [address] | | | | | Contrast | Phone: | Phone: | | | | | | [phone] | [phone] | | | | | | Fax: | Fax: | | | | | | [phone] | [phone] | +--------+--------+ + + + + Diagnostic/Screening [...] | | | | | with | [place], | [place] | | | | | myelopathy | [place] [address] | [address] | | | | | Cervical | Phone: | Phone: | | | | | cord | [phone] | [phone] | | | | | myelomalacia | Fax: | Fax: | | | | | [facility]) | [phone] | [phone] | | | | | Degenerative | [...] | | | | | cervical | [place], | [place], [place] | | | | | region | [place] | [address] | | | | | Cervical | [address] | Phone: | | | | | nerve root | Phone: | [phone] | | | | | impingement | [phone] | Fax: | | | | | SPINAL | Fax: | [phone] | | | | | STENOSIS C4, | [phone] | | | | | | WITH NERVE | | | | | | | IMPINGEMENT | | | | | | | OF C3-C6 | | | | | | | Procedures | | | | | | | MO OFFICE | | | | | | [...] | | [address] | [place] [address] | (Primary Dx); | | | | [place] | [phone] | Cervical cord | | | | [address] | | myelomalacia ([facility]); | | | | [phone] | | Degenerative disc | | | [...] research this procedure more by going to: [email or web address] Click the Treatment Options link on the left column. Then, look for Anterior Cervical Discectomy and Fusion (ACDF). documented in this encounter Progress Notes Wes Melvin MD - 01/19/2014 9:08 AM PDTFormatting of this note might be different from t he original. Wes Melvin MD [address] [place] [address], [address] [place] [address] FAX: NEUROSURGERY HISTORY AND PHYSICAL EXAMINATION CHIEF [...] has no apparent deficits with short or fpc memory. CRANIAL NERVES: II: Acuity is intact. [...] Intrinsics 5 4 Ulnar Intrinsics 5 4 Shipper/Receiver Strength 5 4 Hip Flexion 4 4 [...] nter Miscellaneous Notes Miscellaneous - ONBASE SCAN [facility] - 01/28/2014 12:00 AM PDT iscellaneous - ONBASE SCAN [facility] - 01/19/2014 12:00 AM PDTEle ctronically signed [...] | | | | TOY Quiroz [facility] | | | | | | [place] [address] | | | | | | [phone] | | | | | | | | +--------+ + + + + | 03/13/ | Office | Neurology | Veronica, | | | 2020 | Visit | | Angie, [address] | | | | | | [address] [facility], | | | | | | [place] [address] | | | | | | [phone] | | | | | | | [...] + + | Performing | Address | City[facility]State[facility] | Phone Number | | Organization | | | | + +---------+ + + | MISCELLANEOUS LAB | | | [phone] | + +---------+ + + | MISCELANIOUS LAB | | | [phone] | + +---------+ + + MRI Cervical [...] | in the cervical cord at the [id number]. Multilevel degenerative disc and spondylitic | | [...] + | MISCELLANEOUS LAB | | | [phone] | + +---------+ + + | MISCELANIOUS LAB | | | [phone] | + +---------+ + + documented in [...]
--- OUTSIDE RECORDS SUMMARY | ~2019-12-22 | XMS | Encounter Summary ---
Demographics + + + | Address | [address] | | | [place] [address] | + + + | Home Phone [...] | Organization | [facility] [...] Team Providers + +------+ + | Care Brazing Machine Feeder Name | Role | Phone | + [...] [address] | | | | | | [place], [place] | | | | | | [address] | | | | | | [phone] | | | +--------+ + + + [...] | | | | | TOY Richie [facility] | | | | | | [place] [address] | | | | | | [phone] | | | | | | | | +--------+ + + + + | 03/13/ | Office | Neurology | Veronica, | | | 2019 | Visit | | HALI Adams [address] | | | | | [address] [place], | | | | | | [place] [address] | | | | | | [phone] | | | | | | | | +--------+ + + + + documented as of this encounter Visit Diagnoses + + | Diagnosis | + + | Lumbago | + + documented in this encounter"
--- OUTSIDE RECORDS SUMMARY | ~2019-12-22 | XMS | Encounter Summary ---
Demographics + + + | Address | [address] | | | [place] [address] | + + + | Home Phone [...] Team Providers + +------+ + | Care Fork Truck Operator Name | Role | Phone | [...] | | | | CENTER [address] | [address] | unspecified | | | | [place], [place] | [place], [place] | chronicity pattern, | | | | [address] | [address] | unspecified headache | | | | [phone] | | type (Primary Dx); | | [...] symptoms. Please follow-up with your [facility] care physician. documented in this [...] might be d ifferent from the original. [facility] Encounter Note [address] [place] [address] PCP:Dominic Carlin MD [phone] eMERGENCY dEPARTMENT eNCOUnter [...] Fusion; Surgeon: Wes Elmore am, MD; Location: [facility] MAIN OR OTHER SURGICAL HISTORY UNLISTED PROCEDURE ARTHROSCOPY - Bilateral Rotator Cuff ROTATOR CUFF REPAIR Bilateral SPINE SURGERY 2009 Cervical Surgery TONSILLECTOMY AND ADENOIDECTOMY CURRENT MEDICATIONS LIFE ENRICHMENT ASSISTANT Home Medications Medication Sig amLODIPine (NORVASC) [...] deficits noted, no facial assymetry noted. Equal supervisor coffee in all extremities RADIOLOGY Ct Angiogram Head [...] in the left occipital lobe and left pulling unit floorhand ior temporal lobe within the CHEMICAL INSTRUMENTATION OFFICER territory. An old small lacunar infarct [...] cavity is unremarkable. The parapharyngeal, retropharyngeal, and gas maker spaces are normal. The parotid glands and [...] right MCA territory infarct, old small left CHEMICAL INSTRUMENTATION OFFICER territo ry infarct, old small lacunar [...] this chart may have been created with [employer] voice recognition software. Occasi onal wrong-word or [...] | | | | | CALEB E [facility] | | | | | | [place] [address] | | | | | | [phone] | | | | | | | | +--------+ + + + + | 03/13/ | Office | Neurology | Veronica, | | | 2019 | Visit | | HALI Adams [address] | | | | | [address] [place], | | | | | | [place] [address] | | | | | | [phone] | | | | | | | [...] [facility] | | old small left CHEMICAL INSTRUMENTATION OFFICER territory infarct, old small lacunar infarct [...] and left posterior temporal lobe within the CHEMICAL INSTRUMENTATION OFFICER | | | territory. An old [...] is | | | moderately hypoplastic. The medieval english literature professor are normal. CTA NECK FINDINGS: | | [...] | | | The parapharyngeal, retropharyngeal, and gas maker spaces are | | | normal. The [...] left | | posteriortemporal lobe within the CHEMICAL INSTRUMENTATION OFFICER territory. An old small lacunar infarct [...] vertebral artery | | ismoderately hypoplastic. The medieval english literature professor are normal.CTA NECK FINDINGS:Aorta and Branches: | [...] right MCA territory infarct, old small left CHEMICAL INSTRUMENTATION OFFICER territory infarct, old | | smalllacunar [...] cavity is unremarkable. The parapharyngeal, retropharyngeal, and gas maker | |spaces are normal. The parotid glands [...] right MCA territory infarct, old small left CHEMICAL INSTRUMENTATION OFFICER territory infarct, old small | |lacunar [...] | | | | | | [employer] | | | | | [...] [address] | [place] | [phone] | | [facility] | | [address] | | | - LABORATORY | | [...] method in use as of | | ArasStephanie PENNY | | | | July 13, [...] + | [facility] | [address] | [place] | [phone] | | [facility] | | [address] | | | - LABORATORY | | [...] mL/min/1.73m2 | [facility]. [facility] | | | Italian | | | MEDICAL | | | [...] [address] | [place] | [phone] | | [facility] | | [address] | | | - LABORATORY | | [...] ST. | [address] | [place] | [phone] | | [facility] | | [address] | | | - LABORATORY | | [...] | | | | | Intravenous, ONCE, [facility] 04/27/19 | | AM PST | | [...] | | | | CT Scan, Starting [facility] 04/27/19 | | | | | | [...]
--- OUTSIDE RECORDS SUMMARY | ~2019-12-22 | XMS | Encounter Summary ---
Demographics + + + | Address | [address] | | | [place] [address] | + + + | Home Phone [...] | Organization | [facility] [...] Team Providers + +------+ + | Care Reweaver Name | Role | Phone | + [...] + + | 10/23/ | Telephone | [facility] | Salvador Jose MD | Consult | | 2020 | | VASCULAR SURGERY | [address] | | | | | [address] | [address] | | | | | E [place], [place] | [place] [address] | | | | | [address] | [phone] | | | | | [phone] | | | +--------+ + + + [...] 11:00 AM PDTSpoke with Eva Cuevas at [facility] on behalf of patient, Buck - Scheduled New Patient Consult with Dr. Jose 11/01/2019 @ 11am for Right Carotid Artery - MMN Note: Onset Dementia - History of Stroke - [facility] ([facility]) Connor murillo in this encounter Plan [...] | | | | | TOY Richie [facility] | | | | | | [place] [address] | | | | | | [phone] | | | | | | | | +--------+ + + + + | 03/13/ | Office | Neurology | Veronica, | | | 2019 | Visit | | HALI [address] | | | | [address] [place], | | | | | | [place] [address] | | | | | | [phone] | | | | | | | | +--------+ + + + + documented as of this encounter Visit Diagnoses Not on filedocumented in this encounter"
--- OUTSIDE RECORDS SUMMARY | ~2019-12-22 | XMS | Encounter Summary ---
Demographics + + + | Address | [address] | | | [place] [address] | + + + | Home Phone | | + + + | Preferred Language | Unknown | + + + | Marital Status | Single | + + + | Baptist Affiliation | 1041 | + + + | Race | Unknown | + + + | Ethnic Group | Unknown | + + + Author + + + | Author | [facility] | | | and [place] | + + + | Organization | [facility] | | | [...] Providers + +------+ + | Care Automotive Machinist Name | Role | Phone | + +------+ + PCP | Unavailable | + +------+ + Encounter Details +--------+ + + + + | Date | Type | Department | Care Team | Description | +--------+ + + + + | 06/06/ | Hospital | [facility] | | Sprain rotator cuff | | 2003 | Encounter | [facility] [address] | [address] | | | | | | [place], [place] | | | | | | [address] | | | | | | [phone] | | | +--------+ + + + [...] | | | | | TOY E [facility] | | | | | | [place] [address] | | | | | | [phone] | | | | | | | | +--------+ + + + + | 03/13/ | Office | Neurology | Veronica, | | | 2019 | Visit | | [address] | | | | | | [address] [place], | | | | | | [place] [address] | | | | | | [phone] | | | | | | | | +--------+ + + + + documented as of this encounter Visit Diagnoses + + | Diagnosis | + + | Sprain rotator cuff Rotator cuff (capsule) sprain | + + documented in this encounter"
--- OUTSIDE RECORDS SUMMARY | ~2019-12-22 | XMS | Encounter Summary ---
Demographics + + + | Address | [address] | | | [place] [address] | + + + | Home Phone [...] Team Providers + +------+ + | Care Academic Assistant Name | Role | Phone | [...] | | [address] | [place] [address] | | | | | [place] | [phone] | | | | | [address] | | | | | | [phone] | | | +--------+ + + + [...] | | | | | | [address] | | | | | | [place] [address] | | | | | | [phone] | | | | | | | | +--------+ + + + + | 03/13/ | Office | Neurology | Veronica, | | | 2020 | Visit | | [address]I [address] | | | | | | [address] [place], | | | | | | [place] [address] | | | | | | [phone] | | | | | | | | +--------+ + + + + documented as of this encounter Visit Diagnoses Not on filedocumented in this encounter"
--- OUTSIDE RECORDS SUMMARY | ~2019-12-22 | XMS | Encounter Summary ---
Demographics + + + | Address | [address] | | | [place] [address] | + + + | Home Phone [...] | Organization | [facility] [...] Team Providers + +------+ + | Care Garment Mender Name | Role | Phone | + [...] | | [address] | [place] [address] | | | | | [place] | [phone] | | | | | [address] | | | | | | [phone] | | | +--------+ + + + [...] | | | | | TOY E [facility] | | | | | | [place] [address] | | | | | | [phone] | | | | | | | | +--------+ + + + + | 03/13/ | Office | Neurology | Veronica, | | | 2019 | Visit | | [address] | | | | | | [address] [facility], | | | | | | [place] [address] | | | | | | [phone] | | | | | | | | +--------+ + + + + documented as of this encounter Visit Diagnoses Not on filedocumented in this encounter"
--- OUTSIDE RECORDS SUMMARY | ~2019-12-22 | XMS | Encounter Summary ---
Demographics + + + | Address | [address] | | | [place] [address] | + + + | Home Phone [...] + + | Author | [facility] | | | and [place] | + + + | Organization | [facility] | | | [...] Team Providers + +------+ + | Care Science Faculty Member Name | Role | Phone | [...] | | | | | | | [place] | | | | | | | [...] + + | 07/26/ | Hospital | [facility] | Wes Weber MD | | | 2015 - | Encounter | MED CTR SURGICAL | [address] | | | | | [address] | [place] [address] | | | 07/27/ | | [place] [address] | [phone] | | | 2014 | | [phone] | | | +--------+ + + + [...] might be differen t from the original. [facility] - [facility] NEUROSURGERY DISCHARGE SUMMARY Patient Name: Buck Bell [...] Care Everywhere.CERVICAL FUSION , DISCHARGE INSTRUCTIONS FOR (GIBRALTARIAN)documented in this encounter Medications at Time of [...] Weber MD - 07/26/2014 9:[address] [facility] AND PHYSICAL [...] signed by: Wes Weber MD 07/26/2014 9[facility]45 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 CRANIAL NERVES: II: Acuity is [...] Intrinsics 5 4 Ulnar Intrinsics 5 4 Roof Truss Builder Strength 5 4 Hip Flexion 4 4 [...] rolled OOB with no (A). Donns "B" H[place] collar but needs help to tighten it [...] prior to discha rge for ed. On Hes[place]us collar and precautions. Planned Interventions:Planned Therapy Interventions: ADL retraining, orthotic fitting/train ing, transfer training Patient Status/Goals Reflects last filed data of patient status; may be from multiple contributors. Basic ADLs Instrumental ADLs Activity Tolerance Cognitive Linguistics Cognitive Tests Bed Mobility Bed Mobility Skill: Rolling/Turning, PT Eval Level Of [place]: independent Bed Mobility Skill: Sit To Supine, Rehab Eval Level Of [place]: Sit/Supine: independent Bed Mobility Skill: Supine To Sit, Rehab Eval Level Of [place]: Supine/Sit: independent Transfers Transfer Skill: Bed To Chair/Chair To Bed, Rehab Eval Type of Transfer: step pivot Level Of [place]: Bed To Chair: modified independent Physical Assist/Nonphysical Assist: Bed To Chair: (.) Assistive Device: 2 wheeled walker Goal Transfers Bed to Chair/Chair to Bed Bed to Chair/Chair to Bed STG Status: Met STG Transfers Bed to Chair/Chair to Bed: modified independent Transfer Skill: Sit To Stand, Rehab Eval Level Of [place]: Sit/Stand: modified independent Physical Assist/Nonphysical Assist: Sit/Stand: (.) Assistive Device For Transfer: Sit/Stand: 2 wheeled walker Goal Transfers Sit to Stand Sit to Stand STG Status: Met STG Transfers Sit to Stand : modified independent Transfer Skill: Stand To Sit, Rehab Eval Level Of [place]: Stand/Sit: modified independent Physical Assist/Nonphysical Assist: Stand/Sit: [...] Summary & Review . Outcome: Progressing This bilingual patient support caseworker visited with this patient who had cervical [...] Mobility Skill: Rolling/Turning, PT Eval Level Of [place]: independent Bed Mobility Skill: Sit To Supine, Rehab Eval Level Of [place]: Sit/Supine: independent Bed Mobility Skill: Supine To Sit, Rehab Eval Level Of [place]: Supine/Sit: independent Transfers Transfer Skill: Bed To Chair/Chair To Bed, Rehab Eval Type of Transfer: step pivot Level Of [place]: Bed To Chair: modified independent Physical Assist/Nonphysical Assist: Bed To Chair: (.) Assistive Device: 2 wheeled walker Goal Transfers Bed to Chair/Chair to Bed Bed to Chair/Chair to Bed STG Status: Met STG Transfers Bed to Chair/Chair to Bed: modified independent Transfer Skill: Sit To Stand, Rehab Eval Level Of [place]: Sit/Stand: modified independent Physical Assist/Nonphysical Assist: Sit/Stand: (.) Assistive Device For Transfer: Sit/Stand: 2 wheeled walker Goal Transfers Sit to Stand Sit to Stand STG Status: Met STG Transfers Sit to Stand : modified independent Transfer Skill: Stand To Sit, Rehab Eval Level Of [place]: Stand/Sit: modified independent Physical Assist/Nonphysical Assist: Stand/Sit: (.) Assistive Device For Transfer: Stand/Sit: 2 wheeled walker Goal Transfers Stand to Sit Stand to Sit STG Status: Met STG Transfers Stand to Sit: modified independent Transfer Safety Analysis, Rehab Eval Transfer Safety Concerns Noted: decreased balance during turns, decreased proprioception Impaired Transfers: impaired balance Gait Gait Skills, PT Eval Level Of [place]: Gait: modified independent Physical Assist/Nonphysical Assist: Gait: (.) Assistive Device For Transfer: Gait: 2 wheeled walker Gait Distance: 300 feet Goal Gait Gait STG Status: Met STG Gait: modified independent STG Gait Device: 2 wheeled walker STG Gait Distance: 300 feet Stairs Stair, Performance Number Of Stairs: 4 Stair Railings: present on both sides Level Of [place]: modified independent Physical Assist/Nonphysical Assist: verbal cues [...] amts of drainage. lan of Lan Reed, LANDSCAPE SPECIALIST - 07/27/2014 4:29 AM PDTThe patient is [...] Mobility Skill: Rolling/Turning, PT Eval Level Of [place]: did not occur today Bed Mobility Skill: Sit To Supine, Rehab Eval Level Of [place]: Sit/Supine: did not occur today Bed Mobility Skill: Supine To Sit, Rehab Eval Level Of [place]: Supine/Sit: did not occur today Transfers Transfer Skill: Bed To Chair/Chair To Bed, Rehab Eval Type of Transfer: step pivot Level Of [place]: Bed To Chair: supervision/set-up Physical Assist/Nonphysical Assist: Bed To Chair: verbal cues, 1 person assist Assistive Device: 2 wheeled walker Goal Transfers Bed to Chair/Chair to Bed Bed to Chair/Chair to Bed STG Status: New STG Transfers Bed to Chair/Chair to Bed: modified independent Transfer Skill: Sit To Stand, Rehab Eval Level Of [place]: Sit/Stand: supervision/set-up Physical Assist/Nonphysical Assist: Sit/Stand: verbal cues Assistive Device For Transfer: Sit/Stand: 2 wheeled walker Goal Transfers Sit to Stand Sit to Stand STG Status: New STG Transfers Sit to Stand : modified independent Transfer Skill: Stand To Sit, Rehab Eval Level Of [place]: Stand/Sit: supervision/set-up Physical Assist/Nonphysical Assist: Stand/Sit: verbal cues Assistive Device For Transfer: Stand/Sit: 2 wheeled walker Goal Transfers Stand to Sit Stand to Sit STG Status: New STG Transfers Stand to Sit: modified independent Transfer Safety Analysis, Rehab Eval Transfer Safety Concerns Noted: decreased balance during turns, decreased proprioception Impaired Transfers: impaired balance Gait Gait Skills, PT Eval Level Of [place]: Gait: supervision/set-up Physical Assist/Nonphysical Assist: Gait: verbal cues Assistive Device For Transfer: Gait: 2 wheeled walker Gait Distance: 300 feet Goal Gait Gait STG Status: New STG Gait: modified independent STG Gait Device: 2 wheeled walker STG Gait Distance: 300 feet Stairs Stair, Performance Number Of Stairs: 4 Stair Railings: present on both sides Level Of [place]: supervision/set-up Physical Assist/Nonphysical Assist: verbal cues Assistive [...] 19:03 lan of Care - John Corona, LANDSCAPE SPECIALIST - 07/26/2014 5:44 PM PDTFormatting of this [...] thin liquids by straw with no difficulty. PLAYERS CLUB REPRESENTATIVE provided education about swallowing post o p. [...] recommendation: no further Speech Therapy Planned Interventions: PLAYERS CLUB REPRESENTATIVE Diagnosis: Odynophagia but swallow WNL At bedside, [...] Swallow: Patient will complete swallow evaluation with PLAYERS CLUB REPRESENTATIVE s/p ACS Electronically signed by: Donita Taylor SPEECH PATHO, 07/26/2014 17:17 Start Time: 1640 Stop time: 1703 Duration: 23 minutes 5:1 7 PM PDTOp Note - Wes Weber MD - 07/26/2014 2:02 PM PDT Operative Note Buck Bell 69 y.o. male 1945 [id number] Proc. Date 07/26/2014 Preop Dx Cervical spondylosis with myelopathy Cervical stenosis Cervical degenerative disc disease Cervical foraminal stenosis Cervical kyphosis Cervical radiculopathy Postop Dx same Procedure 1. Anterior cervical discectomy and fusion C3-4, C4-5, C5-6, and C6-7 2. Anterior cervical plating C3-7 using [place] [employer] 3. Anterior structural allograft bone C3-4, C4-5, C5-6, and C6-7 4. Microsurgical technique with use of operating microscope Anesthesia General, Dr. Calix Surgeon Surgeon(s) and Role: * Wes Weber MD - Primary Cloth Wire Weaver Daniel Bonilla EBL 264 Findings C3-C7 severe [...] allograft prior to insertion was filled with [place] bone. The structural allograft bone was then tamped into place at C3-4, C4-5, C5-6, and C6-7. Anterior cervical plating was then performed by holding a 80 mm [place] [employer] plat e in place over the segments with holding pins. Fluoroscopy was used to confirm its appropr iate positioning and then records associate holes were made in the C3-C7 vertebral [...] signed by: Wes Weber MD 07/26/2014 14:00 [facility] rief Op Note - Chris Weber MD - 07/26/2014 2:00 PM PDTFormatting of this note might be different from the origin al. Brief Operative Note Buck Bell 69 y.o. male 1945 [id number] Proc. Date 07/26/2014 Preop Dx Cervical spondylosis with myelopathy Cervical stenosis Cervical degenerative disc disease Cervical foraminal stenosis Cervical kyphosis Cervical radiculopathy Postop Dx same Procedure 1. Anterior cervical discectomy and fusion C3-4, C4-5, C5-6, and C6-7 2. Anterior cervical plating C3-7 using [place] [employer] 3. Anterior structural allograft bone C3-4, C4-5, C5-6, and C6-7 4. Microsurgical technique with use of operating microscope Anesthesia General, Dr. Calix Surgeon Surgeon(s) and Role: * Wes Weber MD - Primary Cloth Wire Weaver Daniel Bonilla EBL 264 Findings C3-C7 severe DDD with large anterior and posterior osteophytes. Complications none Specimens * No specimens in log * Drains Drain/Device Site 07/26/14 1326 #1 Right: cervical spine collapsible closed device (Act alejandro) Insertion Site Appearance clean and dry 07/26/2014 13:54 Drainage Characteristics/Odor serosanguineous 07/26/2014 13:54 Drainage Amount scant 07/26/2014 13:54 Electronically signed by: Wes Weber MD 07/26/2014 14:00 [facility] documented in this encou nter Plan [...] | | TOY [address] [facility] | | | | | | [place] [address] | | | | | | [phone] | | | | | | | | +--------+ + + + + | 03/13/ | Office | Neurology | Veronica, | | | 2019 | Visit | | [address] | | | | | | [address] [facility], | | | | | | [place] [address] | | | | | | [phone] | | | | | | | [...] | | | | | | | [facility] 07/26/14 at 1800, For 2 doses, | [...] PDT | | | | | Starting [facility] 07/26/14 at 1516, | | | | [...] | | | | | | use Mamou 10/ if ordered. If | | | [...]
--- OUTSIDE RECORDS SUMMARY | ~2019-12-22 | XMS | Encounter Summary ---
Demographics + + + | Address | [address] | | | [place] [address] | + + + | Home Phone [...] Providers + +------+ + | Care Student Liaison Officer Name | Role | Phone | + +------+ + | Dominic Carlin MD | PCP | | + +------+ + Encounter Details +--------+ + + + + | Date | Type | Department | Care Team | Description | +--------+ + + + + | 08/23/ | Hospital | [facility] | Haroldo King | S/P cervical spinal | | 2015 | Encounter | MED CTR XRAY [address] | [address] | fusion | | | | [place] | [address] [place] | | | | | [place] [address] | [address] | | | | | [phone] | | | +--------+ + + + [...] +--------+ + + + + | 12/26/ Appointment | Radiology | | | | 2020 | | | | | +--------+ + + + + | 12/26/ | Office | Vascular Surgery | Salvador Jose MD | | | 2019 | Visit | | [address] | | | | | | [address] [facility] | | | | | | [facility] [place] [place] [address] | | | | | | [phone] | | | | | | | | +--------+ + + + + | 03/13/ | Office | Neurology | Veronica, | | | 2019 | Visit | | [address] | | | | | | [address] [place], | | | | | | [place] [address] | | | | | | [phone] | | | | | | | [...] COMPARISON: 07/26/2014. FINDINGS: Visualized skull | [facility] | | base and facial structures demonstrate [...] | + + + + + | [facility] | [address] | [place], [place] | [phone] | | [facility] | | [address] | | | - IMAGING | | | | + + + + + documented in this encounter Visit Diagnoses + + | Diagnosis | + + | S/P cervical spinal fusion Arthrodesis status | + + documented in this encounter"
--- OUTSIDE RECORDS SUMMARY | ~2019-12-22 | XMS | Encounter Summary ---
Demographics + + + | Address | [address] | | | [place] [address] | + + + | Home Phone | | + + + | Preferred Language | Unknown | + + + | Marital Status | Single | + + + | Alevism Affiliation | Unknown | + + + | Race | or | + + + | Ethnic Group | Not or | + + + Author + + + | Author | [facility] | + + + | Organization | [facility] | + + + | Address | Unknown | + + + | Phone | Unavailable | + + + Support + + +---------+ + | Name | Relationship | Address | Phone | + + +---------+ + | Gautam Ray | ECON | Unknown | | + + +---------+ + Care Team Providers + +------+ + | Care Medical Van Driver Name | Role | Phone | [...] | in shoulder | Rd | Rd [place], | | | | | region, | [place], [place] | [place] | | | | | unspecified | [address] | [address] | | | | | Procedures | Phone: | Phone: | | | | | CONSULT TO | [phone] | [phone] | | | | | ORTHOPEDICS | Fax: | Fax: | | | | | AND | [phone] | [phone] | | | | | REHABILITATI | [...] | 2008 | Visit | Center at [facility] [address] | [address] [facility] [address] | Cervical | | | | [address] | [address], | Radiculopathy | | | | Mailcode: CH8N | [place] [address] | | | | | [place] [facility] | [phone] | | | | | and Healing, | | | | | | Building | | | | | | Floor [place], [place] | | | | | | [address] | | | | | | [phone] | | | +--------+---------+ + + + [...]
--- OUTSIDE RECORDS SUMMARY | ~2019-12-22 | XMS | Encounter Summary ---
Demographics + + + | Address | [address] | | | [place] [address] | + + + | Home Phone | | + + + | Preferred Language | Unknown | + + + | Marital Status | Single | + + + | Jain Affiliation | [id number] | + + + | Race | Unknown | + + + | Ethnic Group | Unknown | + + + Author + + + | Author | [facility] | | | and [place] | + + + | Organization | [facility] | [...] Team Providers + +------+ + | Care Domestic Cleaner Name | Role | Phone | [...] + | 07/17/ | Refill | [facility] | Haroldo King | Medication Refill | | 2015 | | NEUROSURGERY [address] | [address] | | | | | [address] | [address] [place], [place] | | | | | [place], [place] | [id number] | | | | | [address] | | | | | | [phone] | | | +--------+--------+ + + + [...] | | | | | TOY [address] [facility] | | | | | | [place] [address] | | | | | | [phone] | | | | | | | | +--------+ + + + + | 03/13/ | Office | Neurology | Veronica, | | | 2019 | Visit | | [address] | | | | | | [address] [facility], | | | | | | [place] [address] | | | | | | [phone] | | | | | | | | +--------+ + + + + documented as of this encounter Visit Diagnoses + + | Diagnosis | + + | S/P cervical spinal fusion - Primary Arthrodesis status | + + documented in this encounter"
--- OUTSIDE RECORDS SUMMARY | ~2019-12-22 | XMS | Encounter Summary ---
Demographics + + + | Address | [address] | | | [place] [address] | + + + | Home Phone | | + + + | Preferred Language | Unknown | + + + | Marital Status | Single | + + + | Restorationist Affiliation | [id number] | + + + | Race | Unknown | + + + | Ethnic Group | Unknown | + + + Author + + + | Author | [facility] | | | and [place] | + + + | Organization | [facility] | | [...] Team Providers + +------+ + | Care Soakers Supervisor Name | Role | Phone | [...] | MD [address] | [address] | | | | | Procedures | [address] | [place], | | | | | MRI Lumbar | [place], | [place] | | | | | Spine wo | [place] [address] | [address] | | | | | Contrast | Phone: | Phone: | | | | | | [phone] | [phone] | | | | | | Fax: | Fax: | | | | | | [phone] | [phone] | +--------+--------+ + + + + Reason [...] | MD [address] | [address] | | | | | Procedures | [address] | [place], | | | | | MRI Lumbar | [place], | [place] | | | | | Spine wo | [place] [address] | [address] | | | | | Contrast | Phone: | Phone: | | | | | | [phone] | [phone] | | | | | | Fax: | Fax: | | | | | | [phone] | [phone] | +--------+--------+ + + + + Encounter Details +--------+ + + + + | Date | Type | Department | Care Team | Description | +--------+ + + + + | 01/30/ | Hospital | [facility] | Wes Melvin MD | Back pain | | 2013 | Encounter | MED CTR MRI [address] | [address] | | | | | [place] [address] [place], | [place] [address] | | | | | [place] [address] | [phone] | | | | | [phone] | | | +--------+ + + + [...] | | | | | [address] [facility] | | | | | | [place] [address] | | | | | | [phone] | | | | | | | | +--------+ + + + + | 03/13/ | Office | Neurology | Veronica, | | | 2019 | Visit | | [address] | | | | | | [address] [place], | | | | | | [place] [address] | | | | | | [phone] | | | | | | | [...] + | MISCELLANEOUS LAB | | | [phone] | + +---------+ + + | MISCELANIOUS LAB | | | [phone] | + +---------+ + + documented in this encounter Visit Diagnoses + + | Diagnosis | + + | Back pain Backache, unspecified | + + documented in this encounter"
--- OUTSIDE RECORDS SUMMARY | ~2019-12-22 | XMS | Encounter Summary ---
Demographics + + + | Address | [address] | | | [place] [address] | + + + | Home Phone | | + + + | Preferred Language | Unknown | + + + | Marital Status | Single | + + + | Baptism Affiliation | [id number] | + + + [...] Team Providers + +------+ + | Care Oven Tender Name | Role | Phone | [...] + + | 11/05/ | Telephone | [facility] | Salvador Jose MD | Other (Appointment | | 2020 | | VASCULAR SURGERY | [address] | Notes Request) | | | | [address] | [address] [facility] | | | | | E [place], [place] | [place] [address] | | | | | [address] | [phone] | | | | | [phone] | | | +--------+ + + + [...] - Jennyfer Rojo - 11/06/2019 2:45 PM [facility], is calling regarding Other (Appointment Notes Request) and would like a call back. Additional Call Details: Is wanting to know if the appointment notes from the 11/01/19 tele phonic visit can be sent to their medical records at fax: [phone]. If this is a symptom based call, was patient offered triage? Not Applicable If this is a symptom based call and you were unable to immediately transfer the call to a brandon jane vocal performer was caller made aware that if at [...] | | | | | [address] [facility] | | | | | | [place] [address] | | | | | | [phone] | | | | | | | | +--------+ + + + + | 03/13/ | Office | Neurology | Veronica, | | | 2020 | Visit | | [address] | | | | | | [address] [place], | | | | | | [place] [address] | | | | | | [phone] | | | | | | | | +--------+ + + + + documented as of this encounter Visit Diagnoses Not on filedocumented in this encounter"
--- OUTSIDE RECORDS SUMMARY | ~2019-12-22 | XMS | Encounter Summary ---
Demographics + + + | Address | [address] | | | [place] [address] | + + + | Home Phone | | + + + | Preferred Language | Unknown | + + + | Marital Status | Single | + + + | Druze Affiliation | 1041 | + + + | Race | Unknown | + + + | Ethnic Group | Unknown | + + + Author + + + | Author | [facility] | | | and [place] | + + + | Organization | [facility] [...] Team Providers + +------+ + | Care Edge Trimmer Name | Role | Phone | + [...] Dizziness | [address] | [address] | | | | | and | [address] | [address], | | | | | giddiness | [address] | [place] | | | | | Procedures | [place], | [address] | | | | | MRI Brain wo | [place] [address] | Phone: | | | | | Contrast | Phone: | [phone] | | | | | | [phone] | Fax: | | | | | | Fax: | [phone] | | | | | | [phone] | | +--------+--------+ + + + + [...] Dizziness | COLEEN GrimesP | [address] | | | | | and | [address] | [place], | | | | | giddiness | [address] | [place] | | | | | Procedures | [place], | [address] | | | | | MRI Brain wo | [place] [address] | Phone: | | | | | Contrast | Phone: | [phone] | | | | | | [phone] | Fax: | | | | | | Fax: | [phone] | | | | | | [phone] | | +--------+--------+ + + + + Encounter Details +--------+ + + + + | Date | Type | Department | Care Team | Description | +--------+ + + + + | 05/22/ | Hospital | [facility] | Sydney Lennon, | Dizziness and | | 2020 | Encounter | MED CTR MRI [address] | [employer] [address] | [place] | | | | [address], | [place] | | | | | [place] [address] | [address] | | | | | [phone] | | | +--------+ + + + [...] | | | | [address] [facility] | | | | | | [place] [address] | | | | | | [phone] | | | | | | | | +--------+ + + + + | 03/13/ | Office | Neurology | Veronica, | | | 2019 | Visit | | [address] | | | | | | [address] [place], | | | | | | [place] [address] | | | | | | [phone] | | | | | | | [...]
--- OUTSIDE RECORDS SUMMARY | ~2019-12-22 | XMS | Encounter Summary ---
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 CTR XRAY [address] | [address] | myelomalacia (HCC); | | | | [place] [address] | [place] [address] | Cervical spondylosis | | | | [place] [address] | [phone] | with myelopathy; | | | | [phone] | | Essential | | | | [...] | | | | [address] [facility] | | | | | | [place] [address] | | | | | | [phone] | | | | | | | | +--------+ + + + + | 03/13/ | Office | Neurology | Veronica, | | | 2019 | Visit | | [address] | | | | | | [address]TH [facility], | | | | | | [place] [address] | | | | | | [phone] | | | | | | | [...] + | [facility] | [address] | [place], [place] | [phone] | | [facility] | | [address] | | | - IMAGING | | [...]
--- OUTSIDE RECORDS SUMMARY | ~2019-12-22 | XMS | Encounter Summary ---
Demographics + + + | Address | [address] | | | [place] [address] | + + + | Home Phone | | + + + | Preferred Language | Unknown | + + + | Marital Status | Single | + + + | Adventism Affiliation | [id number] | + + + [...] Team Providers + +------+ + | Care Webbing Weaver Name | Role | Phone | + +------+ + | Dominic Carlin MD | PCP | | + +------+ + Encounter Details +--------+ + + + + | Date | Type | Department | Care Team | Description | +--------+ + + + + | 08/23/ | Hospital | [facility] | Haroldo King | S/P cervical spinal | | 2015 | Encounter | MED CTR XRAY [address] | [address] | fusion | | | | [place] | [address] [place] | | | | | [place] [address] | [address] | | | | | [phone] | | | +--------+ + + + [...] | | | | | TOY [address] [facility] [place] | | | | | | [facility] [place] [address] | | | | | | [phone] | | | | | | | | +--------+ + + + + | 03/13/ | Office | Neurology | Veronica, | | | 2019 | Visit | | [address] | | | | | | [address] [place], | | | | | | [place] [address] | | | | | | [phone] | | | | | | | [...] C3 through C7.Dictated and Signed by: Lloyd Sehr MD Electronically signed: 08/23/2014 | | 3:37 [...] + | [address] | [address] [place] [address] | [place], [place] | [phone] | | [facility] | | [address] | | | - IMAGING | | | | + + + + + documented in this encounter Visit Diagnoses + + | Diagnosis | + + | S/P cervical spinal fusion Arthrodesis status | + + documented in this encounter"
--- OUTSIDE RECORDS SUMMARY | ~2019-12-22 | XMS | Encounter Summary ---
Demographics + + + | Address | [address] | | | [place] [address] | + + + | Home Phone | | + + + | Preferred Language | Unknown | + + + | Marital Status | Single | + + + | Sikh Affiliation | 1041 | + + + | Race | Unknown | + + + | Ethnic Group | Unknown | + + + Author + + + | Author | [facility] | | | and [place] | + + + | Organization | [facility] | | | [...] Team Providers + +------+ + | Care Trailer Assembler Name | Role | Phone | [...] | | | | | Bilateral | [address] | | | | | | | Phone: | | | | | | | [phone] | | | | | | | Fax: | | | | | | | [phone] | | +--------+--------+ + + + + [...] | | | | | Bilateral | [address] | | | | | | | Phone: | | | | | | | [phone] | | | | | | | Fax: | | | | | | | [phone] | | +--------+--------+ + + + + Encounter Details +--------+ + + + + | Date | Type | Department | Care Team | Description | +--------+ + + + + | 12/12/ | Hospital | [facility] | | Carotid stenosis, | | 2019 | Encounter | VASCULAR SURGERY | | right | | | | ULTRASOUND [address] | | | | | | [address] | | | | | | [facility] | | | | | | [address] | | | | | | [phone] | | | +--------+ + + + [...] [place] | | | | | | [place] [address] | | | | | | [phone] | | | | | | | | +--------+ + + + + | 03/13/ | Office | Neurology | Veronica, | | | 2019 | Visit | | [address] | | | | | | 4TH [facility], | | | | | | [place] [address] | | | | | | [phone] | | | | | | | [...] | Procedure Note | + + | [facility], [id number] - 12/13/2019 11:59 AM PDT | | [...]
--- OUTSIDE RECORDS SUMMARY | ~2019-12-22 | XMS | Encounter Summary ---
Demographics + + + | Address | [address] | | | [place] [address] | + + + | Home Phone [...] Team Providers + +------+ + | Care Interventional Technologist Name | Role | Phone | + [...] | | [address] | [place] [address] | | | | | [place] | [phone] | | | | | [address] | | | | | | [phone] | | | +--------+---------+ + + + [...] from t he original. Wes Melvin MD [address] [place] [address], [address] [place] [address] FAX: NEUROSURGERY FOLLOW-UP CHIEF COMPLAINT: Chief Complaint [...] Fusion; Surgeon: Wes Melvin MD; Location: [facility] OR CURRENT MEDICATIONS: Current Outpatient [...] | | | TOY E [facility] | | | | | | [place] [address] | | | | | | [phone] | | | | | | | | +--------+ + + + + | 03/13/ | Office | Neurology | Veronica, | | | 2019 | Visit | | [address] | | | | | | 4TH [facility], | | | | | | [place] [address] | | | | | | [phone] | | | | | | | [...]
--- OUTSIDE RECORDS SUMMARY | ~2019-12-22 | XMS | Encounter Summary ---
Demographics + + + | Address | [address] | | | [place] [address] | + + + | Home Phone [...] Providers + +------+ + | Care Box Lining Machine Feeder Name | Role | Phone | + +------+ + | Dominic Carlin MD | PCP | | + +------+ + Encounter Details +--------+ + + + + | Date | Type | Department | Care Team | Description | +--------+ + + + + | 12/25/ | [facility] | [facility] | Haroldo King | Cervical spondylosis | | 2015 | Encounter | MED CTR XRAY [address] | [address] | with myelopathy; | | | | [place] | [address] [place] | Degenerative disc | | | | [place] [address] | [address] | disease, cervical; | | | | [phone] | | Cervical cord | | | [...] [place] | | | | | | [place] [address] | | | | | | [phone] | | | | | | | | +--------+ + + + + | 03/13/ | Office | Neurology | Veronica, | | | 2019 | Visit | | [address] | | | | | | 4TH [facility], | | | | | | [place] [address] | | | | | | [phone] | | | | | | | [...] ST. | [address] | [place] | [phone] | | [facility] | | [address] | | | - IMAGING | | [...]
--- OUTSIDE RECORDS SUMMARY | ~2019-12-22 | XMS | Encounter Summary ---
Demographics + + + | Address | [address] | | | [place] [address] | + + + | Home Phone [...] Team Providers + +------+ + | Care Security Investigator Name | Role | Phone | + +------+ + | Sydney Lennon | PCP | | + +------+ + Encounter Details +--------+ + + + + | Date | Type | Department | Care Team | Description | +--------+ + + + + | 11/14/ | Orders Only | [facility] | Tomasa Jose, | Carotid stenosis, | | 2020 | | VASCULAR SURGERY | PA-C [address] | right (Primary Dx) | | | | [address] | [address]LO[address] | | | | | E [place], [place] | [place] [address] | | | | | [address] | [phone] | | | | | [phone] | | | +--------+ + + + [...] | | | | | TOY Qu[address] [facility] | | | | | | [place] [address] | | | | | | [phone] | | | | | | | | +--------+ + + + + | 03/13/ | Office | Neurology | Veronica, | | | 2019 | Visit | | [address] | | | | | | [address]TH [facility] [place], | | | | | | [place] [address] | | | | | | [phone] | | | | | | | | +--------+ + + + + documented as of this encounter Visit Diagnoses + + | Diagnosis | + + | Carotid stenosis, right - Primary Occlusion and stenosis of carotid artery without | | mention of cerebral infarction | + + documented in this encounter"
--- OUTSIDE RECORDS SUMMARY | ~2019-12-22 | XMS | Encounter Summary ---
Demographics + + + | Address | [address] | | | [place] [address] | + + + | Home Phone | | + + + | Preferred Language | Unknown | + + + | Marital Status | Single | + + + | Alevism Affiliation | 1041 | + + + | Race | Unknown | + + + | Ethnic Group | Unknown | + + + Author + + + | Author | [facility] | | | and [place] | + + + | Organization | [facility] | | | and [...] Team Providers + +------+ + | Care Top Knitter Name | Role | Phone | + +------+ + | Sydney Lennon | PCP | | + +------+ + Encounter Details +--------+ + + + + | Date | Type | Department | Care Team | Description | +--------+ + + + + | 12/10/ | Orders Only | [facility] | María Elena Chairez DNP | | | 2020 | | VASCULAR SURGERY | [address] | | | | | [address] | [place], [place] | | | | | E [place], [place] | [address] | | | | | [address] | | | | | | [phone] | | | +--------+ + + + [...] [place] | | | | | | [place] [address] | | | | | | [phone] | | | | | | | | +--------+ + + + + | 03/13/ | Office | Neurology | Veronica, | | | 2019 | Visit | | [address] | | | | | | 4TH [facility], | | | | | | [place] [address] | | | | | | [phone] | | | | | | | | +--------+ + + + + documented as of this encounter Visit Diagnoses Not on filedocumented in this encounter"
--- OUTSIDE RECORDS SUMMARY | ~2019-12-22 | XMS | Encounter Summary ---
Demographics + + + | Address | [address] | | | [place] [address] | + + + | Home Phone [...] + + + | Author | [facility] | | | and [place] | + + + | Organization | [facility] | | [...] Team Providers + +------+ + | Care Sports Clerk Name | Role | Phone | [...] | | [address] | [place] [address] | | | | | [place] | [phone] | | | | | [address] | | | | | | [phone] | | | +--------+ + + + [...] | | | | | | [place] | | | | | | [place] [address] | | | | | | [phone] | | | | | | | | +--------+ + + + + | 03/13/ | Office | Neurology | Veronica, | | | 2020 | Visit | | [address] | | | | | | [address] [place], | | | | | | [place] [address] | | | | | | [phone] | | | | | | | | +--------+ + + + + documented as of this encounter Visit Diagnoses Not on filedocumented in this encounter"
--- OUTSIDE RECORDS SUMMARY | ~2019-12-22 | XMS | Encounter Summary ---
Demographics + + + | Address | [address] | | | [place] [address] | + + + | Home Phone [...] Author + + + | Author | [facility] | + + + | Organization | [facility] | + + + | Address | Unknown | + + + | Phone | Unavailable | + + + Support + + +---------+ + | Name | Relationship | Address | Phone | + + +---------+ + | Gautam Ray | ECON | Unknown | | + + +---------+ + Care Team Providers + +------+ + | Care Promotional Marketing Agent Name | Role | Phone | [...] | in shoulder | Rd | Rd [place], | | | | | region, | [place], [place] | [place] | | | | | unspecified | [address] | [address] | | | | | Procedures | Phone: | Phone: | | | | | CONSULT TO | [phone] | [phone] | | | | | ORTHOPEDICS | Fax: | Fax: | | | | | AND | [phone] | [phone] | | | | | REHABILITATI | [...] | 2008 | Visit | Center at [facility] [address] | [address] [facility] [address] | Cervical | | | | [address] | Angelica Guerin [place], | Radiculopathy | | | | Mailcode: CH8N | [place] [address] | | | | | [place] for [facility] | [phone] | | | | | and Healing, | | | | | | Building | | | | | | Floor [place], [place] | | | | | | [address] | | | | | | [phone] | | | +--------+---------+ + + + [...]
--- OUTSIDE RECORDS SUMMARY | ~2019-12-22 | XMS | Encounter Summary ---
Demographics + + + | Address | [address] | | | [place] [address] | + + + | Home Phone [...] + + + | Author | [facility] | | | and [place] | + + + | Organization | [facility] | | | [...] Team Providers + +------+ + | Care Fur Pointer Name | Role | Phone | + +------+ + | Sydney Lennon | PCP | | + +------+ + Encounter Details +--------+ + + + + | Date | Type | Department | Care Team | Description | +--------+ + + + + | 11/19/ | Orders Only | [facility] | María Elena Chairez DNP | COVID-19 ruled out | | 2020 | | VASCULAR SURGERY | [address] | (Primary Dx) | | | | [address] | [address]Y [address] [facility] [place] | | | | | E [place] | [address] | | | | | [address] | | | | | | [phone] | | | +--------+ + + + [...] | | | | | TOY [address] [facility] | | | | | | [place] [address] | | | | | | [phone] | | | | | | | | +--------+ + + + + | 03/13/ | Office | Neurology | Veronica, | | | 2019 | Visit | | [address] | | | | | | [facility]TH [facility], | | | | | | [place] [address] | | | | | | [phone] | | | | | | | [...]
--- OUTSIDE RECORDS SUMMARY | ~2019-12-22 | XMS | Encounter Summary ---
Demographics + + + | Address | [address] | | | [place] [address] | + + + | Home Phone [...] | Organization | [facility] [...] Providers + +------+ + | Care Clinical Nursing Professor Name | Role | Phone | + [...] + + | 11/14/ | Office | [facility] | Salvador Jose MD | Carotid stenosis, | | 2019 | Visit | VASCULAR SURGERY | [address] | bilateral (Primary | | | | [address] | [address] [place] | Dx) | | | | E [place], [place] | [place] [address] | | | | | [address] | [phone] | | | | | [phone] | | | +--------+---------+ + + + [...] Salvador Jose MD - 11/15/2019 10:30 AM [facility] [address] [place] [address] [place] [address] Office: [phone] DATE OF VISIT: 11/15/19 PATIENT NAME: Buck Bell : 1945; AGE: 74 y.o.; Sex:M PHONE NUMBER: ; (Work); ; PHYSICIAN: Salvador Jose MD PRIMARY CARE / REFERRING PHYSICIAN: No ref. provider found / HALI Thurman / [address] / [place] [address] / REASON FOR EVALUATION / CHIEF COMPLAINT: Follow up evaluation regarding bilateral carot id stenosis HISTORY OF PRESENT ILLNESS: Buck Bell is a 74 y.o. male patient who presents fo follow up regarding his bilateral carotid stenosis. He is a patient at [facility] and was seen at the ED at [facility] for headache and neck pain complaint s in 04/2019. 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 Given his recurrent dizziness and previous [...] Patient understands and is agreeable. Dictation software, [employer], used which may contain error for similar [...] HOSPITAL | | | | | | [place] [address] | | | | | | [phone] | | | | | | | | +--------+ + + + + | 03/13/ | Office | Neurology | Veronica, | | | 2019 | Visit | | [address] | | | | | | 4TH [facility] [place], | | | | | | [place] [address] | | | | | | [phone] | | | | | | | | +--------+ + + + + documented as of this encounter Visit Diagnoses + + | Diagnosis | + + | Carotid stenosis, bilateral - Primary Occlusion and stenosis of multiple and | | bilateral precerebral arteries without mention of cerebral infarction | + + documented in this encounter
--- OUTSIDE RECORDS SUMMARY | ~2019-12-22 | XMS | Encounter Summary ---
Demographics + + + | Address | [address] | | | [place] [address] | + + + | Home Phone | | + + + | Preferred Language | Unknown | + + + | Marital Status | Single | + + + | Temple Affiliation | Unknown | + + + | Race | or | + + + | Ethnic Group | Not or | + + + Author + + + | Author | [facility] | + + + [...] Team Providers + +------+ + | Care Managing Partner Name | Role | Phone | + [...] | | | | | | Rd [place], | | | | | | | [place] | | | | | | | [address] | | | | | | | Phone: | | | | | | | [phone] | | | | | | | Fax: | | | | | | | [phone] | +--------+--------+ + + + + Encounter Details +--------+---------+ + + + | Date | Type | Department | Care Team | Description | +--------+---------+ + + + | 03/05/ | Office | Orthopaedics | Jaswant Angeles MD | Shoulder Pain; | | 2007 | Visit | [facility] at [facility] | [address] | Injury of Axillary | | | | for Health and | [address] | Nerve; Unspecified | | | | Healing [address] | [place], [place] | Disorders of Bursae | | | | Ave [facility] for | [address] | and Tendons in | | | | Health and Healing, | [phone] | Shoulder Region | | | | [facility] | | | | | | Floor [place], [place] | | | | | | [address] | | | | | | [phone] | | | +--------+---------+ + + + [...] of this encounter Progress Jaswant Crow - 04/01/2008 8:49 PM PSTThis patient returns [...] | | | | | | JEROME JOVEL | | | | | | PRELIMINARY [...] | | + +---------+ + + | [facility] DEPART[facility] OF | | | | [...]
--- OUTSIDE RECORDS SUMMARY | ~2019-12-22 | XMS | Encounter Summary ---
Demographics + + + | Address | [address] | | | [place] [address] | + + + | Home Phone [...] + + + | Author | [facility] | | | and [place] | + + + | Organization | [facility] | | [...] Team Providers + +------+ + | Care Fence Post Driver Name | Role | Phone | [...] | MED CTR EXTERNAL | MD Kathy [address] | | | | | IMAGING [address] | [address] | | | | | [address] [place] | [place] [address] | | | | | [place] [address] | | | | | | [phone] | | | +--------+ + + + [...] | | | | | TO[address]ie [facility] | | | | | | [place] [address] | | | | | | [phone] | | | | | | | | +--------+ + + + + | 03/13/ | Office | Neurology | Veronica, | | | 2019 | Visit | | [address] | | | | | | [address] [place], | | | | | | [place] [address] | | | | | | [phone] | | | | | | | [...]
--- OUTSIDE RECORDS SUMMARY | ~2019-12-22 | XMS | Encounter Summary ---
Demographics + + + | Address | [address] | | | [place] [address] | + + + | Home Phone [...] Team Providers + +------+ + | Care Network Consultant Name | Role | Phone | [...] Nia Mri | | | | | Cervical | MD [address] | [address] | | | | | spondylosis | [address] | [place], | | | | | with | [facility] | [place] | | | | | myelopathy | [place] [address] | [address] | | | | | Cervical | Phone: | Phone: | | | | | cord | [phone] | [phone] | | | | | myelomalacia | Fax: | Fax: | | | | | (HCC) | [phone] | [phone] | | | | | Degenerative | [...] | spondylosis | [address] | [place], | | | | | with | [place], | [place] | | | | | myelopathy | [place] [address] | [address] | | | | | Cervical | Phone: | Phone: | | | | | cord | [phone] | [phone] | | | | | myelomalacia | Fax: | Fax: | | | | | ([facility]) | [phone] | [phone] | | | | | Degenerative | [...] + + | 01/30/ | Hospital | [place] | Wes Melvin MD | Cervical spondylosis | | 2013 | Encounter | MED CTR MRI [address] | [address] | with myelopathy; | | | | [address] [place], | [place] [address] | Cervical cord | | | | [place] [address] | [phone] | myelomalacia (HCC); | | | | [phone] | | Degenerative disc | | | [...] +---------+--------+ + documented as of this encounter Miscellaneous Notes Miscellaneous - [facility] - 02/14/2014 12:00 AM PDT documented in this encounter Plan of Treatment [...] | | | | TO[address] [facility] | | | | | | [place] [address] | | | | | | [phone] | | | | | | | | +--------+ + + + + | 03/13/ | Office | Neurology | Veronica, | | | 2019 | Visit | | Angie, RN PALLIATIVE [address] | | | | | | 4TH [facility], | | | | | | [place] [address] | | | | | | [phone] | | | | | | | [...] to prior. Dictated and Signed by: Yash | | | MD Carlito Electronically signed: 01/31/2014 9:28 AM | | + + + + + | Procedure Note | + + | Eldon, Chun Results In - 01/31/2014 9:31 AM PDT [...] | in the cervical cord at the [id number]. Multilevel degenerative disc and spondylitic | | [...] + | MISCELLANEOUS LAB | | | [phone] | + +---------+ + + | MISCELANIOUS LAB | | | [phone] | + +---------+ + + documented in this encounter Visit Diagnoses + + | Diagnosis | + + | Cervical spondylosis with myelopathy | + + | Cervical cord myelomalacia (HCC) Other myelopathy | + + | Degenerative disc disease, cervical Degeneration of cervical intervertebral disc | + + documented in this encounter"
--- OUTSIDE RECORDS SUMMARY | ~2019-12-22 | XMS | Encounter Summary ---
Demographics + + + | Address | [address] | | | [place] [address] | + + + | Home Phone [...] Team Providers + +------+ + | Care Forge Shop Machine Repairer Name | Role | Phone | + +------+ + | Dominic Carlin MD | PCP | | + +------+ + Reason for Visit + +--------+ + | Reason | Onset | Comments | | | Date | | + +--------+ + | Appointment | 05/07/ | | | | 2013 | | + +--------+ + Encounter Details +--------+ + + + + | Date | Type | Department | Care Team | Description | +--------+ + + + + | 05/07/ | Telephone | [facility] | Wes Melvin MD | Appointment | | 2013 | | NEUROSURGERY [address] | [address] | | | | | [facility] [address] | [place] [address] | | | | | [place] | [phone] | | | | | [address] | | | | | | [phone] | | | +--------+ + + + [...] Notes Telephone Encounter - Edna Mcdermott - 05/30/2014 8:58 AM PSTThe denial for Buck's marybel spencer has been overturned. All levels of the surgery are now approved. Surgery scheduled 07/23/14. A M PSTTelephone Encounter - Edna Mcdermott - 05/21/2014 11:16 AM PSTDetailed voicemail kalpana ledbetter for Buck. Requested a callback to discuss surgery authorization further. elephone Encounter - Leidy Estrada C MA - 05/15/2014 9:06 AM PSTCalled patient to relay information. Left a detailed message explaining we couldn't communicate via e-mail, but we could set up MyChart if patient is interested. Asked patient to return call. elephone Encounter - Krista Yuan - 05/14/2014 9:01 AM PSTPatient called back. He stated that he can be reached by email at [email or web address]. elephone Kiersten - Edna Mcdermott - 05/08/2014 11:23 AM PSTLeft a detailed voicemail for Buck. Requeste d callback. elephone En counter - Krista Yuan - 05/08/2014 10:19 AM PSTPatient called back. Stated he will call b ack later. elephone Jessica madrid - Edna Mcdermott - 05/07/2014 10:26 AM PSTSee referral# [id number]. One level of the surgery requested was denied. Left Buck a voicemail and requested a callb ack to discuss this further. Per Dr. Melvin: This will be much harder to manage when he needs this in the future. I can proceed with jus emiliano three but again his course may then require two or more surgeries instead of just one. Chris Melvin MD elephone Kiersten - rKista Yuan - 05/07/2014 9:53 AM PSTPatient called stating that he was returning a call from our office about an appointment. Requested a call back. documented in this encounter Plan of Treatment [...] | | | | | | [place] | | | | | | [place] [address] | | | | | | [phone] | | | | | | | | +--------+ + + + + | 03/13/ | Office | Neurology | Veronica, | | | 2019 | Visit | | [address] | | | | | | [address] [place], | | | | | | [place] [address] | | | | | | [phone] | | | | | | | | +--------+ + + + + documented as of this encounter Visit Diagnoses Not on filedocumented in this encounter"
--- OUTSIDE RECORDS SUMMARY | ~2019-12-22 | XMS | Encounter Summary ---
Demographics + + + | Address | [address] | | | [place] [address] | + + + | Home Phone [...] Team Providers + +------+ + | Care Urban Planner Name | Role | Phone | + +------+ + | Sydney Lennon | PCP | | + +------+ + Encounter Details +--------+ + + + + | Date | Type | Department | Care Team | Description | +--------+ + + + + | 12/10/ | Orders Only | [facility] | María Elena Chairez DNP | | | 2020 | | VASCULAR SURGERY | [address] | | | | | [address] | [place], [place] | | | | | [place], [place] | [address] | | | | | [address] | | | | | | [phone] | | | +--------+ + + + [...] | | | | | | [place] [address] | | | | | | [phone] | | | | | | | | +--------+ + + + + | 03/13/ | Office | Neurology | Veronica, | | | 2019 | Visit | | [address] | | | | | | 4TH [facility], | | | | | | [place] [address] | | | | | | [phone] | | | | | | | | +--------+ + + + + documented as of this encounter Visit Diagnoses Not on filedocumented in this encounter"
--- OUTSIDE RECORDS SUMMARY | ~2019-12-22 | XMS | Encounter Summary ---
Demographics + + + | Address | [address] | | | [place] [address] | + + + | Home Phone [...] Team Providers + +------+ + | Care Floral Designer Name | Role | Phone | + [...] | | | | | | | [place] | | | | | | | [...] + + | 11/30/ | Hospital | [facility] | Salvador Jose MD | Carotid stenosis, | | 2019 - | Encounter | [facility] | [address] | right; Carotid | | | | [address] | [facility] | stenosis, right | | 12/02/ | | [place], [place] | [place] [address] | | | 2019 | | [address] | [phone] | | | | | [phone] | | | +--------+ + + + [...] Physician Discharge Summary Patient ID: Buck Bell [id number] 74 y.o. 1945 Admit date: 12/01/2019 Discharge [...] as needed. aka: PHENERGAN Discontinued Medications Aspirin Buf(YeRvec-MjDagh-PzS) 81 MG Tabs clopidogrel 75 mg tablet [...] Care Everywhere.Carotid Endarte rectomy, Discharge Instructions for (Wolof)documented in this encounter Medications at Time of [...] comfortable taking the patient home either way. [facility] was also notifie d of the situation. [...] Rose MD - 12/03/19 11:07 AM PDT [facility]: Vascular Surgery Progress Note Hospital Day: [...] Flako Delgado RN - 12/03/2019 12:15 AM POL0034-Ko pulling at burnett and l lb, even [...] le, and scrabble, other puzzle games like [employer], Ordr[employer]in. Play computer/mobile applications such as [employer] and [employer] GAMES "Patient cannot make medical decisions for [...] Rose MD - 12/02/2019 9:01 AM PDT [facility]: Vascular Surgery Progress Note Hospital Day: [...] Salvador Jose MD, 12/01/2019 10:52 AM PDT [facility] - 0 11/15/2019 10:30 AM [facility] [address] [place] [address] [place] [address] Office: [phone] DATE OF VISIT: 11/15/19 PATIENT NAME: Buck Bell : 1945; AGE: 74 y.o.; Sex:M PHONE NUMBER: ; (Work); ; PHYSICIAN: Salvador Jose MD PRIMARY CARE / REFERRING PHYSICIAN: No ref. provider found / HALI Thurman / [id number] / [place] [id number] / REASON FOR EVALUATION / CHIEF COMPLAINT: Follow up evaluation regarding bilateral carot id stenosis HISTORY OF PRESENT ILLNESS: Buck Bell is a 74 y.o. male patient who presents fo r follow up regarding his bilateral carotid stenosis. He is a patient at [facility] and was seen at the ED at [facility] for headache and neck pain complaint s in 04/2019. 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 Given his recurrent dizziness and [...] Patient understands and is agreeable. Dictation software, Therma Flite, used which may contain error for similar [...] Physical Therapy Re-Assessment Note Recommended discharge disposition: fpc facility Post discharge physical therapy recommendation: ongoing [...] two are going to , your next". Executive Search Consultant appea r equal and intact. Concern re: decline in status and fall w/hitting head GANG RIDER. May benefit from MD f/u for possible [...] LTG Status new at 12/02/2019 1250 LTG [place] Level modified independent at 12/02/2019 1250 LTG Assistive Device none at 12/02/2019 1250 All Transfers Goal Most Recent Value LTG Status new at 12/02/2019 1250 LTG [place] Level modified independent at 12/02/2019 1250 LTG Assistive Device 2 wheeled walker (FWW) at 12/02/2019 1250 Gait Goal Most Recent Value LTG Status new at 12/02/2019 1250 LTG [place] Level modified independent at 12/02/2019 1250 LTG [...] Therapy Initial Evaluation Note Recommended discharge disposition: fpc facility Post discharge physical therapy recommendation: will [...] nerves/numbnes s and vascular- lives alone in [place], [place]- he stated no help available to assist him Prior Functional Level Comment: c/o being dizzy since his neck surgery- and numbness in B-h ands/feet Precautions Precaution Comment: c/o dizziness and azuijvsz-W-zwaox/feet and poor historian Precautions/Limitations: falls, hard of [...] Documentation: sit to/from stand Sit-Stand, Level of Alexandria: minimal assist (75% patient effort), verbal cues required Stand-Sit, Level of [place]: verbal cues required, minimal assist (75% patient effort) Hcd-Semow-Dqo, Assistive Device: gait belt, 2 wheeled walker (FWW) Safety Issues: weight-shifting ability decreased Gait Level of [place]: moderate assist (50% patient effort), verbal cues [...] LTG Status new at 12/02/2019 1250 LTG [place] Level modified independent at 12/02/2019 1250 LTG Assistive Device none at 12/02/2019 1250 All Transfers Goal Most Recent Value LTG Status new at 12/02/2019 1250 LTG [place] Level modified independent at 12/02/2019 1250 LTG Assistive Device 2 wheeled walker (FWW) at 12/02/2019 1250 Gait Goal Most Recent Value LTG Status new at 12/02/2019 1250 LTG [place] Level modified independent at 12/02/2019 1250 LTG [...] Jose MD - 12/01/2019 4:26 PM PDT [facility] OPERATIVE REPORT PATIENT NAME: Buck Bell AGE: [...] Salvador Jose MD, 12/01/2019 4:26 PM PDT [facility] documented in this enc ounter Plan of [...] | | | | | | [address] | | | | | | [place] [address] | | | | | | [phone] | | | | | | | | +--------+ + + + + | 03/13/ | Office | Neurology | Veronica, | | | 2019 | Visit | | [address] | | | | | | [address] [facility], | | | | | | [place] [address] | | | | | | [phone] | | | | | | | [...] | 8.6 | 8.5 - 10.5 | [facility] | | | | | mg/dL | LABORATORY | | + + + + + + | Estimated | >60Comment: GFR <60: | >60 | [facility] | | | GFR | [...] | | | | | | MDRD IDLA traceable | | | | | | equation.Testing | | | | | | performed at [facility], [address] | | | | | | [facility], | | | | | | [place] [address] | | | | + + + + + + + + | Specimen | + + | Blood | + + + + + + + | Performing | Address | City/State/Zipcode | Phone Number | | Organization | | | | + + + + + | [facility] | [address] | [place] [address] | [phone] | + + + + + CBC [...] LABORATORY | | | | performed at [facility], [address] | | | | | [address], | | | | | | [place] [address] | | | | + + + + + + + + | Specimen | + + | Blood | + + + + + + + | Performing | Address | City/State/Zipcode | Phone Number | | Organization | | | | + + + + + | [facility] | [address] | [place] [address] | [phone] | + + + + + Basic [...] | | | | | performed at [facility], [address] | | | | | | [facility], | | | | | | [place] [address] | | | | + + + + + + + + | Specimen | + + | Blood | + + + + + + + | Performing | Address | City/State/Zipcode | Phone Number | | Organization | | | | + + + + + | [facility] | [address] | [place] [address] | [phone] | + + + + + CBC [...] | | | Absolute | performed at [facility], [address] | K/uL | LABORATORY | | | | [facility], | | | | | | [place] [address] | | | | + + + + + + + + | Specimen | + + | Blood | + + + + + + + | Performing | Address | City/State/Zipcode | Phone Number | | Organization | | | | + + + + + | [facility] | [address] | [place] [address] | [phone] | + + + + + Hemoglobin [...] [facility] | | | | performed at [facility];[address] | | LABORATORY | | | | [address];[place], [place] | | | | | | [address] | | | | + + + + + + + + | Specimen | + + | Blood | + + + + + + + | Performing | Address | City/State/Zipcode | Phone Number | | Organization | | | | + + + + + | [facility] | [address] | [place] [address] | [phone] | + + + + + Surgical [...] plaque | | | with extensive calcification. JVR:[facility]:C2NR MICROSCOPIC | | | EXAMINATION:Histologic sections [...] | | | component was performed by [facility], [address] [place] [address], | | | [place] [address] (Extension Division Director: Shannan Archer MD; CLIA# | | | [id number]). Professional interpretation was performed by[employer] | | | [employer], [facility], [facility] | | | [address] [place] [address] (Extension Division Director: Issa | | | Kam Palacio). Diagnostician: Issa Palacio | | | MDPathologistElectronically Signed 12/05/2019 | | |The technical component was performed by [facility], [address] [place] [address] (Extension Division Director: Shannan Archer MD; [facility]# [id number]). Professional interpretation w as performed by | | |[facility], [facility], [address] [place] [address] [address] [place] [address] (Extension Division Director: Issa Palacio M.D.). | | | | [...] + + + | [facility] | [id number] | | [facility] | | | | | | LABORATORY | | + + + + + + | [facility] | Testing performed at | | [facility] | | | | [facility];[address] | | LABORATORY | | | | [address];[place] [address] | | | | + + + + + + + + | Specimen | + + | Blood | + + + + + + + | Performing | Address | City/State/Zipcode | Phone Number | | Organization | | | | + + + + + | [facility] | [address] | [place] [address] | [phone] | + + + + + CBC [...] | | | Absolute | performed at [facility];[address] | K/uL | LABORATORY | | | | [facility], [place] | | | | | | [address] | | | | + + + + + + + + | Specimen | + + | Blood | + + + + + + + | Performing | Address | City/State/Zipcode | Phone Number | | Organization | | | | + + + + + | [facility] | [address] | [place] [address] | [phone] | + + + + + Basic [...] | | | | | | MDRD IDLA traceable | | | | | | equation.Testing | | | | | | performed at [facility];[address] | | | | | | [facility];[place], [place] | | | | | | [address] | | | | + + + + + + + + | Specimen | + + | Blood | + + + + + + + | Performing | Address | City/State/Zipcode | Phone Number | | Organization | | | | + + + + + | [facility] | [address] | [place] [address] | [phone] | + + + + + documented [...]
--- OUTSIDE RECORDS SUMMARY | ~2019-12-22 | XMS | Encounter Summary ---
Demographics + + + | Address | [address] | | | [place] [address] | + + + | Home Phone | | + + + | Preferred Language | Unknown | + + + | Marital Status | Single | + + + | Restorationism Affiliation | Unknown | + + + | Race | or | + + + | Ethnic Group | Not or | + + + Author + + + | Author | [facility] | + + + | Organization | [...] Team Providers + +------+ + | Care Grinder Hand Name | Role | Phone | [...] Med at | [address] | | | | | Center for [facility] | [facility], | | | | | and Healing [address] | [place] [address] | | | | | [facility] | [phone] | | | | | Health and Healing, | | | | | | [facility] | | | | | | Floor [place], [place] | | | | | | [address] | | | | | | [phone] | | | +--------+ + + + [...]
--- OUTSIDE RECORDS SUMMARY | ~2019-12-22 | XMS | Encounter Summary ---
Demographics + + + | Address | [address] | | | [place] [address] | + + + | Home Phone [...] Team Providers + +------+ + | Care Fixture Maker Name | Role | Phone | [...] | | | | | Duplex | [place], [place] | | | | | | Bilateral | [address] | | | | | | | Phone: | | | | | | | [phone] | | | | | | | Fax: | | | | | | | [phone] | | +--------+--------+ + + + + [...] + + | 12/05/ | Telephone | [facility] | Yazmin Jesus, | Follow-up | | 2020 | | VASCULAR SURGERY | RN | | | | | [address] | | | | | | [place] | | | | | | [address] | | | | | | [phone] | | | +--------+ + + + [...] 12/11/2019 10:56 AM PDTReturn call made to [facility] Dr Jose has ordered for patient to start 500 mg Keflex twice daily. María Elena Chairez DNP faxe d order to [facility] as requested by patient. Cecy reports [...] Cecy and can be reac hed at [phone] elephone Monae Rosen 12/11/2019 9:07 AM NICKOLAS Engel, is calling for Follow-up and would like a call back. Additional Call Details: Stated they received a call from patient and he is still bleeding , more when he lays down, and has a back odor. Feels this is an urgent matter. Please call Buck back at [phone] or Cecy, Sister in law at [phone] elephone Encounter - Yazmin Cisneros RN - 12/06/2019 9:56 AM PDTReceived call from John, patient's [id number]-sjo yesterday evening. Patient had some bleeding at [...] | | | | | [address] [facility] | | | | | | [place] [address] | | | | | | [phone] | | | | | | | | +--------+ + + + + | 03/13/ | Office | Neurology | Veronica, | | | 2019 | Visit | | [address] | | | | | | [address] [facility], | | | | | | [place] [address] | | | | | | [phone] | | | | | | | [...] Procedure Note | + + | [place], [id number] - 12/13/2019 11:59 AM PDT | | [...]
--- OUTSIDE RECORDS SUMMARY | ~2019-12-22 | XMS | Encounter Summary ---
Demographics + + + | Address | [address] | | | [place] [address] | + + + | Home Phone | | + + + | Preferred Language | Unknown | + + + | Marital Status | Single | + + + | Christian Affiliation | 1041 | + + + | Race | Unknown | + + + | Ethnic Group | Unknown | + + + Author + + + | Author | [facility] | | | and [place] | + + + | Organization | [facility] | | [...] Team Providers + +------+ + | Care Advanced Practice Provider Name | Role | Phone | + [...] | | [address] | [place] [address] | | | | | [place] [address] | | | | | | [phone] | | | +--------+ + + + [...] [place] | | | | | | [place] [address] | | | | | | [phone] | | | | | | | | +--------+ + + + + | 03/13/ | Office | Neurology | Veronica, | | | 2019 | Visit | | [address] | | | | | | [address] [facility] [place], | | | | | | [place] [address] | | | | | | [phone] | | | | | | | [...] in this encounter Results CT Angiogram Head w Contrast (10/18/2019 12:00 [...]
--- OUTSIDE RECORDS SUMMARY | ~2019-12-22 | XMS | Encounter Summary ---
Demographics + + + | Address | [address] | | | [place] [address] | + + + | Home Phone [...] Author + + + | Author | Count Includes [facility] | + + + | Organization | [facility] | + + + | Address | Unknown | + + + | Phone | Unavailable | + + + Support + + +---------+ + | Name | Relationship | Address | Phone | + + +---------+ + | Gautam Ray | ECON | Unknown | | + + +---------+ + Care Team Providers + +------+ + | Care Fire Equipment Inspector Name | Role | Phone | [...] | | | | | [facility] | [facility], | | | | | and Healing [address] | [place] [address] | | | | | [facility] | [phone] | | | | | Health and Healing, | | | | | | [facility] | | | | | | Floor [place], [place] | | | | | | [address] | | | | | | [phone] | | | +--------+ + + + [...]
--- OUTSIDE RECORDS SUMMARY | ~2019-12-22 | XMS | Encounter Summary ---
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 | [address] | [place] | [phone] | | [facility] | | [address] | | | - IMAGING | | | | + + + + + CBC with Differential (07/11/2014 10:29 AM PST) + + + + + + | Component | Value | Ref Range | Performed | Pathologist | | | | | At | Signature | + + + + + + | White Blood | 9.1 | 4.0 - 11.0 K/uL | [facility] | | | Cells | | | [facility] | | | | | | [facility] | | | | | | [facility] - | | | | | | LABORATORY | | + + + + + + | Red Blood | 4.68 | 4.30 - 5.70 | [facility] | | | Cells | | M/uL | [facility] | | | | | | [facility]ICAL | | | | | | CENTER - | | | | | | LABORATORY | | + + + + + + | Hemoglobin | 14.8 | 13.5 - 18.0 | [facility] | | | | | g/dL | [facility] | | | | | | [facility] | | | | | | C[facility] - | | | | | | LABORATORY | | + + + + + + | Hematocrit | 43.9 | 40.0 - 51.0 % | [facility] | | | | | | [facility] | | | | | | [facility]ICAL | | | | | | [facility] - | | | | | | LABORATORY | | + + + + + + | MCV | 93.8 | 83.0 - 101.0 fL | [facility] | | | | | | [facility] | | | [...] + | [facility] | [address] | [place], [place] | [phone] | | [facility] | | [address] | | | - LABORATORY | | | | + + + + + | [facility] | [address] | [place] | | | [facility] | | [address] | | | - LABORATORY | | [...] | 0.77 | 0.60 - 1.30 | [facility] | | | | | mg/dL | [facility] | | | | | | MEDICAL | | | | | | CENTER - | | | | | | LABORATORY | | + + + + + + | eGFR, | >60Comment: GLOMERULAR | >=60 | [facility] | | | non- | FILTRATION | mL/min/1.73m2 | [facility] | | | Indian | RATE,ESTIMATED | | MEDICAL | | | | mL/min/1.66k8Ksxq than | | CENTER - | | [...] | 8.8 | 8.3 - 10.5 | [facility] | | | | | mg/dL | [facility] | | | | | | MEDICAL [...] ST. | [address] | [place] | [phone] | | [facility] | | [address] | | | - LABORATORY | | | | + + + + + | [facility] | [address] | [place] | | | [facility] | | [address], [facility] | | | - LABORATORY | | [...]
--- OUTSIDE RECORDS SUMMARY | ~2019-12-22 | XMS | Encounter Summary ---
Demographics + + + | Address | [address] | | | [place] [address] | + + + | Home Phone [...] Team Providers + +------+ + | Care Chief Mechanical Officer Name | Role | Phone | [...] | | | | | | | [place] | | | | | | | [...] + + | 11/30/ | Surgery | [facility] | Salvador Jose MD | CAROTID | | 2019 | [facility] | [address] | ENDARTERECTOMY | | | | OPERATING ROOM [address] | [facility] | | | | | [address] | [place] [address] | | | | | [place] | [phone] | | | | | [address] | | | | | | [phone] | | | +--------+---------+ + + + [...] Physician Discharge Summary Patient ID: Buck Bell [id number] 74 y.o. 1945 Admit date: 12/01/2019 Discharge [...] as needed. aka: PHENERGAN Discontinued Medications Aspirin Buf(PdKduj-JwNemw-SmU) 81 MG Tabs clopidogrel 75 mg tablet [...] Care Everywhere.Carotid Endarte rectomy, Discharge Instructions for (Setswana)documented in this encounter Medications at Time of [...] comfortable taking the patient home either way. [facility] was also notifie d of the [...] MD - 12/03/19 20 11:07 AM PDT [facility] Service: Vascular Surgery Progress Note Hospital Day: LOS: 0 days Post-Op Day: 2 SUBJECTIVE Patient Summary: 74 yo male s/p right CEA for symptomatic carotid stenosis Events Overnight: More aggressive overnight. Patient with known history of vascular dementia with aggressive behaviors. Calm this morning, but in 4 point restraints. [facility] ed. Hemodynamically stable. OBJECTIVE Vital Signs: Vitals: [...] Flako Delgado RN - 12/03/2019 12:15 AM [id number] pulling at [place] and l lb, even [...] le, and scrabble, other puzzle games like [employer], [employer]. Play computer/mobile applications such as [employer] and J[employer] "Patient cannot make medical decisions for [...] Rose MD - 12/02/2019 9:01 AM PDT [facility] Service: Vascular Surgery Progress Note Hospital [...] neck. Hourly checks. Drain to bulb suction. Savlador Jose MD Vascular Surgery alu Lima RN [...] Salvador Jose MD, 12/01/2019 10:52 AM PDT [facility] vSalvador barger MD - 0 11/15/2019 10:30 AM [facility] V[facility] Surgery Clinic [address] [address] Office: [phone] DATE OF VISIT: 11/15/19 PATIENT NAME: Buck Bell : 1945; AGE: 74 y.o.; Sex:M PHONE NUMBER: ; (Work); ; PHYSICIAN: Salvador Jose MD PRIMARY CARE / REFERRING PHYSICIAN: No ref. provider found / HALI Thurman / [address] / [place] [id number] / REASON FOR EVALUATION / CHIEF COMPLAINT: Follow up evaluation regarding bilateral carot id stenosis HISTORY OF PRESENT ILLNESS: Buck Bell is a 74 y.o. male patient who presents fo r follow up regarding his bilateral carotid stenosis. He is a [facility] and was seen at the ED at [facility] for headache and neck pain complaint s in 04/2019. 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 Given his recurrent dizziness and [...] Patient understands and is agreeable. Dictation software, StyleTread, used which may contain error for similar [...] Physical Therapy Re-Assessment Note Recommended discharge disposition: custodial facility Post discharge physical therapy recommendation: ongoing [...] two are going to , your next". Child Care Supervisor appea r equal and intact. Concern re: decline in status and fall w/hitting head SHAPE CARVER. May benefit from MD f/u for possible [...] LTG Status new at 12/02/2019 1250 LTG Richardson Level modified independent at 12/02/2019 1250 LTG Assistive Device none at 12/02/2019 1250 All Transfers Goal Most Recent Value LTG Status new at 12/02/2019 1250 LTG Richardson Level modified independent at 12/02/2019 1250 LTG Assistive Device 2 wheeled walker (FWW) at 12/02/2019 1250 Gait Goal Most Recent Value LTG Status new at 12/02/2019 1250 LTG Richardson Level modified independent at 12/02/2019 1250 LTG [...] Therapy Initial Evaluation Note Recommended discharge disposition: custodial facility Post discharge physical therapy recommendation: will [...] nerves/numbnes s and vascular- lives alone in [place], [place]- he stated no help available to assist him Prior Functional Level Comment: c/o being dizzy since his neck surgery- and numbness in B-h ands/feet Precautions Precaution Comment: c/o dizziness and ntgyvueo-Q-ykvbr/feet and poor historian Precautions/Limitations: falls, hard of hearing, other (see comments)(looses balance backwa [facility]) Cognitive Assessment Cognitive Comments: not able to say month- year only hosp- not kadlec- unsure of answers gi vivian -flat affect Mood/Behavior: cooperative Bed Mobility Bed Mobility Comments: declined today- he was up in recliner did not want to do bed mobs b/ c of pain Transfers Additional Documentation: sit to/from stand Sit-Stand, Level of Richardson: minimal assist (75% patient effort), verbal cues required Stand-Sit, Level of Richardson: verbal cues required, minimal assist (75% patient effort) Zkz-Jkxzg-Fyr, Assistive Device: gait belt, 2 wheeled walker (FWW) Safety Issues: weight-shifting ability decreased Gait Level of Richardson: moderate assist (50% patient effort), verbal cues [...] LTG Status new at 12/02/2019 1250 LTG Richardson Level modified independent at 12/02/2019 1250 LTG Assistive Device none at 12/02/2019 1250 All Transfers Goal Most Recent Value LTG Status new at 12/02/2019 1250 LTG Richardson Level modified independent at 12/02/2019 1250 LTG Assistive Device 2 wheeled walker (FWW) at 12/02/2019 1250 Gait Goal Most Recent Value LTG Status new at 12/02/2019 1250 LTG Richardson Level modified independent at 12/02/2019 1250 LTG [...] Jose MD - 12/01/2019 4:26 PM PDT [facility] OPERATIVE REPORT PATIENT NAME: Buck Bell AGE: [...] Salvador Jose MD, 12/01/2019 4:26 PM PDT [facility] documented in this enc ounter Plan of [...] | | | | TOY Richie ABREU MD | | | | | | [place] [address] | | | | | | [phone] | | | | | | | | +--------+ + + + + | 03/13/ | Office | Neurology | Veronica, | | | 2019 | Visit | | Angie LIPSTICK MOLDER [address] | | | | | | [address] [facility] [place] [place], | | | | | | [place] [address] | | | | | | [phone] | | | | | | | [...] | >60Comment: GFR <60: | >60 | [facility] | | | GFR | [...] | | | | | | MDRD IDAZ traceable | | | | | | equation.Testing | | | | | | performed at [facility], [address] | | | | | | [facility], | | | | | | [place] [address] | | | | + + + + + + + + | Specimen | + + | Blood | + + + + + + + | Performing | Address | City/State/Zipcode | Phone Number | | Organization | | | | + + + + + | [facility] | [address] | [place] [address] | [phone] | + + + + + CBC [...] LABORATORY | | | | performed at [facility], [address] | | | | | [address], | | | | | | [place] [address] | | | | + + + + + + + + | Specimen | + + | Blood | + + + + + + + | Performing | Address | City/State/Zipcode | Phone Number | | Organization | | | | + + + + + | [facility] | [address] | [place] [address] | [phone] | + + + + + Basic [...] | | | | | performed at [facility], [address] | | | | | | [facility], | | | | | | [place] [address] | | | | + + + + + + + + | Specimen | + + | Blood | + + + + + + + | Performing | Address | City/State/Zipcode | Phone Number | | Organization | | | | + + + + + | [facility] | [address] | [place] [address] | [phone] | + + + + + CBC [...] | | | Absolute | performed at [facility], [address] | K/uL | LABORATORY | | | | [address], | | | | | | [place] [address] | | | | + + + + + + + + | Specimen | + + | Blood | + + + + + + + | Performing | Address | City/State/Zipcode | Phone Number | | Organization | | | | + + + + + | [facility] | [address] | [place] [address] | [phone] | + + + + + Hemoglobin [...] TIP | | | | performed at [facility];[address] | | LABORATORY | | | | [address];[place], [place] | | | | | | [address] | | | | + + + + + + + + | Specimen | + + | Blood | + + + + + + + | Performing | Address | City/State/Zipcode | Phone Number | | Organization | | | | + + + + + | [facility] | [address] | [place] [address] | [phone] | + + + + + Surgical [...] | | | with extensive calcification. JVR:[facility]:C2NR MICROSCOPIC | | | EXAMINATION:Histologic sections [...] | | | component was performed by [facility], [address] [place] [address], | | | [place] [address] (Diesel Engine Engineer: Shannan Archer MD; CLIA# | | | [id number]). Professional interpretation was performed by[facility] | | | Diagnostics[address] | | | [facility] [place] [address] (Diesel Engine Engineer: Issa | | | Kam Palacio). Diagnostician: Isas Palacio | | | MDPathologistElectronically Signed 12/05/2019 | | |The technical component was performed by [facility], [address] [place] [address] (Diesel Engine Engineer: Shannan Archer MD; IA# [id number]). Professional interpretation w as performed by | | |[facility] [address] (Diesel Engine Engineer: Issa Palacio M.D.). | | | | [...] + + + | [facility] | [id number] | | [facility] | | | | | | LABORATORY | | + + + + + + | [facility] | Testing performed at | | JASON | | | | [facility];[address] | | LABORATORY | | | | [place] [address] | | | | + + + + + + + + | Specimen | + + | Blood | + + + + + + + | Performing | Address | City/State/Zipcode | Phone Number | | Organization | | | | + + + + + | [facility] | [address] | [place] [address] | [phone] | + + + + + CBC [...] | | | Absolute | performed at [facility];[address] | K/uL | LABORATORY | | | | [address];[place] | | | | | | [address] | | | | + + + + + + + + | Specimen | + + | Blood | + + + + + + + | Performing | Address | City/State/Zipcode | Phone Number | | Organization | | | | + + + + + | [facility] | [address] | [place] [address] | [phone] | + + + + + Basic [...] | | | | | | MDRD [facility] traceable | | | | | | equation.Testing | | | | | | performed at [facility];[address] | | | | | | [facility];[place], [place] | | | | | | [address] | | | | + + + + + + + + | Specimen | + + | Blood | + + + + + + + | Performing | Address | City/State/Zipcode | Phone Number | | Organization | | | | + + + + + | [facility] | [address] | [place] [address] | [phone] | + + + + + documented [...]
--- OUTSIDE RECORDS SUMMARY | ~2019-12-22 | XMS | Encounter Summary ---
Demographics + + + | Address | [address] | | | [place] [address] | + + + | Home Phone [...] Team Providers + +------+ + | Care Humidifier Maintenance Worker Name | Role | Phone | [...] + + | 12/03/ | Telephone | [facility] | Yazmin Jesus, | Follow-up | | 2020 | | VASCULAR SURGERY | RN | | | | | [address] | | | | | | [place] | | | | | | [address] | | | | | | [phone] | | | +--------+ + + + [...] | | | | | TOY Qu[address]z [facility] | | | | | | [place] [address] | | | | | | [phone] | | | | | | | | +--------+ + + + + | 03/13/ | Office | Neurology | Veronica, | | | 2019 | Visit | | HALI [address] | | | | | [address] [place], | | | | | | [place] [address] | | | | | | [phone] | | | | | | | | +--------+ + + + + documented as of this encounter Visit Diagnoses Not on filedocumented in this encounter"
--- OUTSIDE RECORDS SUMMARY | ~2019-12-22 | XMS | Encounter Summary ---
Demographics + + + | Address | [address] | | | [place] [address] | + + + | Home Phone | | + + + | Preferred Language | Unknown | + + + | Marital Status | Single | + + + | Adventism Affiliation | 1041 | + + + | Race | Unknown | + + + | Ethnic Group | Unknown | + + + Author + + + | Author | [facility] | | | and [place] | + + + | Organization | [facility] | | [...] Team Providers + +------+ + | Care Obstetrics Technician Name | Role | Phone | + +------+ + PCP | Unavailable | + +------+ + Encounter Details +--------+ + + + + | Date | Type | Department | Care Team | Description | +--------+ + + + + | 05/16/ | Hospital | [facility] | Conversion | DDD (degenerative | | 2012 | Encounter | [facility] | Transaction, | disc disease); | | | | [address] | Provider Unknown | Neuralgia; Arterial | | | | [place] | [phone] | ischemic stroke, | | | | [address] | | MCA, left, presumed | | | | [phone] | | (HCC); | | | | [...] | | | | | | [address] | | | | | | [place] [address] | | | | | | [phone] | | | | | | | | +--------+ + + + + | 03/13/ | Office | Neurology | Veronica, | | | 2019 | Visit | | HALI [address] | | | | | | [address] [place], | | | | | | [place] [address] | | | | | | [phone] | | | | | | | [...] - 01/06/2019 7:45 PM PDT ISA OSMAN1944MRI BRAIN WO | | QSTTDRJP70/31/2013 2:28 PM HISTORY: Underlying history of previous [...]
--- OUTSIDE RECORDS SUMMARY | ~2019-12-22 | XMS | Encounter Summary ---
Demographics + + + | Address | [address] | | | [place] [address] | + + + | Home Phone [...] Providers + +------+ + | Care Truss Designer Name | Role | Phone | [...] | | [address] | [place] [address] | pain | | | | [place], [place] | [phone] | | | | | [address] | | | | | | [phone] | | | +--------+ + + + [...] | | | | [address] | | | | | | [place] [address] | | | | | | [phone] | | | | | | | | +--------+ + + + + | 03/13/ | Office | Neurology | Veronica, | | | 2019 | Visit | | HALI Adams [address] | | | | [address] [place], | | | | | | [place] [address] | | | | | | [phone] | | | | | | | [...] COMPARISON: CERVICAL MRI MAY 16, 2013 FROM [facility] | LAB | | [facility] FINDINGS: An AP view and lateral [...] PAINCOMPARISON: CERVICAL MRI MAY 16, 2013 FROM [facility] | | MEDICAL CENTERFINDINGS: An AP view [...] + + | Performing | Address | City/State[facility] | Phone Number | | Organization | | | | + +---------+ + + | MISCELLANEOUS LAB | | | [phone] | + +---------+ + + | [facility]ISC[facility] LAB | | | [phone] | + +---------+ + + documented in this encounter Visit Diagnoses + + | Diagnosis | + + | Spinal stenosis - Primary Spinal stenosis, unspecified region other than cervical | + + | Neck pain Cervicalgia | + + documented in this encounter"
--- OUTSIDE RECORDS SUMMARY | ~2019-12-22 | XMS | Encounter Summary ---
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 NICKOLAS Ponce [address] [facility], [address] [place], [place] [address] FAX: NEUROSURGERY SURGICAL FOLLOW-UP CHIEF COMPLAINT: Chief [...] the patient is doing well. The multimedia manager to recovery will take many months and [...] | | | | | [address] [facility] | | | | | | [place] [address] | | | | | | [phone] | | | | | | | | +--------+ + + + + | 03/13/ | Office | Neurology | Veronica, | | | 2019 | Visit | | HALI [address] | | | | | | [address] [facility] [place], | | | | | | [place] [address] | | | | | | [phone] | | | | | | | [...] [address] | [place] | [phone] | | [facility] | | [address] | | | - IMAGING | | [...]
--- OUTSIDE RECORDS SUMMARY | ~2019-12-22 | XMS | Encounter Summary ---
Demographics + + + | Address | [address] | | | [place] [address] | + + + | Home Phone | | + + + | Preferred Language | Unknown | + + + | Marital Status | Single | + + + | Mosque Affiliation | Unknown | + + + | Race | or | + + + | Ethnic Group | Not or | + + + Author + + + | Author | [facility] | + + + | Organization | [facility] | + + + | Address | Unknown | + + + | Phone | Unavailable | + + + Support + + +---------+ + | Name | Relationship | Address | Phone | + + +---------+ + | Gautam Ray | ECON | Unknown | | + + +---------+ + Care Team Providers + +------+ + | Care Training And Development Assistant Name | Role | Phone | [...] | | | | | Center for [facility] | [facility], | | | | | and Healing [address] | [place] [address] | | | | | [facility] | [phone] | | | | | Health and Healing, | | | | | | [facility] | | | | | | Floor [place], [place] | | | | | | [address] | | | | | | [phone] | | | +--------+ + + + [...]
--- OUTSIDE RECORDS SUMMARY | ~2019-12-22 | XMS | Encounter Summary ---
Demographics + + + | Address | [address] | | | [place] [address] | + + + | Home Phone [...] + | Organization | [facility] | [...] Team Providers + +------+ + | Care Showroom Sales Consultant Name | Role | Phone | + +------+ + | Sydney Lennon | PCP | | + +------+ + Encounter Details +--------+ + + + + | Date | Type | Department | Care Team | Description | +--------+ + + + + | 11/14/ | Orders Only | [facility] | Tomasa Jose, | Carotid stenosis, | | 2020 | | VASCULAR SURGERY | PA-C [address] | right (Primary Dx) | | | | [address] | [address] | | | | | [place], [place] | [place] [address] | | | | | [address] | [phone] | | | | | [phone] | | | +--------+ + + + [...] HOSPITAL | | | | | | [place] [address] | | | | | | [phone] | | | | | | | | +--------+ + + + + | 03/13/ | Office | Neurology | Veronica, | | | 2019 | Visit | | HALI [address] | | | | | | [address] [facility] [place], | | | | | | [place] [address] | | | | | | [phone] | | | | | | | | +--------+ + + + + documented as of this encounter Visit Diagnoses + + | Diagnosis | + + | Carotid stenosis, right - Primary Occlusion and stenosis of carotid artery without | | mention of cerebral infarction | + + documented in this encounter"
--- OUTSIDE RECORDS SUMMARY | ~2019-12-22 | XMS | Encounter Summary ---
Demographics + + + | Address | [address] | | | [place] [address] | + + + | Home Phone | | + + + | Preferred Language | Unknown | + + + | Marital Status | Single | + + + | Cheondoism Affiliation | 1041 | + + + [...] + +------+ + | Care Child Care Lead Teacher Name | Role | Phone | [...] + + | 12/19/ | Telephone | [facility] | Salvador Jose MD | Imaging (question ) | | 2020 | | VASCULAR SURGERY | [address] | | | | | [address] | [address] | | | | | [place], [place] | [place] [address] | | | | | [address] | [phone] | | | | | [phone] | | | +--------+ + + + [...] order. Eva can be reached directly at . If this is a symptom based call, was patient offered triage? Not Applicable If this is a symptom based call and you were unable to immediately transfer the call to a brandon jane boat worker was caller made aware that if at [...] [place] | | | | | | [place] [address] | | | | | | [phone] | | | | | | | | +--------+ + + + + | 03/13/ | Office | Neurology | Veronica, | | | 2020 | Visit | | HALI [address] | | | | [address] [place], | | | | | | [place] [address] | | | | | | [phone] | | | | | | | | +--------+ + + + + documented as of this encounter Visit Diagnoses Not on filedocumented in this encounter"
--- OUTSIDE RECORDS SUMMARY | ~2019-12-22 | XMS | Encounter Summary ---
Demographics + + + | Address | [address] | | | [place] [address] | + + + | Home Phone [...] + + | Author | [facility] | + + + | Organization | [facility] | + + + | Address | Unknown | + + + | Phone | Unavailable | + + + Support + + +---------+ + | Name | Relationship | Address | Phone | + + +---------+ + | Gautam Ray | ECON | Unknown | | + + +---------+ + Care Team Providers + +------+ + | Care Blueprint Developer Name | Role | Phone | [...] [address] | | | | | | [place], [place] | | | | | | [address] | | | +--------+ + + + [...]
--- OUTSIDE RECORDS SUMMARY | ~2019-12-22 | XMS | Encounter Summary ---
Demographics + + + | Address | [address] | | | [place] [address] | + + + | Home Phone [...] Team Providers + +------+ + | Care Food Or Baggage Handling Rampman Name | Role | Phone | + +------+ + | Dominic Carlin MD | PCP | | + +------+ + Encounter Details +--------+ + + + + | Date | Type | Department | Care Team | Description | +--------+ + + + + | 01/19/ | Hospital | [facility] | Wes Melvin MD | Spinal stenosis; | | 2013 | Encounter | MED CTR XRAY [address] | [address] | Neck pain | | | | [place] | [place] [address] | | | | | [place] [address] | [phone] | | | | | [phone] | | | +--------+ + + + [...] | | | | | [place] [address] | | | | | | [phone] | | | | | | | | +--------+ + + + + | 03/13/ | Office | Neurology | Veronica, | | | 2019 | Visit | | Zeeramonaotilio REAL ESTATE PROFESSOR [address] | | | | | | [address] [facility], | | | | | | [place] [address] | | | | | | [phone] | | | | | | | [...] COMPARISON: CERVICAL MRI MAY 16, 2013 FROM [facility] | LAB | | [facility] FINDINGS: An AP view and lateral [...] PAINCOMPARISON: CERVICAL MRI MAY 16, 2013 FROM [facility] | | MEDICAL CENTERFINDINGS: An AP view [...] + | MISCELLANEOUS LAB | | | [phone] | + +---------+ + + | [facility] | | | [phone] | + +---------+ + + documented in this encounter Visit Diagnoses + + | Diagnosis | + + | Spinal stenosis Spinal stenosis, unspecified region other than cervical | + + | Neck pain Cervicalgia | + + documented in this encounter"
--- OUTSIDE RECORDS SUMMARY | ~2019-12-22 | XMS | Encounter Summary ---
Demographics + + + | Address | [address] | | | [place] [address] | + + + | Home Phone [...] | Organization | [facility] [...] Team Providers + +------+ + | Care Electric Range Preparer Name | Role | Phone | + +------+ + | Dominic Carlin MD | PCP | | + +------+ + Reason for Visit + +--------+ + | Reason | Onset | Comments | | | Date | | + +--------+ + | Medication Refill | 07/03/ | | | | 2016 | | + +--------+ + Encounter Details +--------+--------+ + + + | Date | Type | Department | Care Team | Description | +--------+--------+ + + + | 07/03/ | Refill | [facility] | Haroldo King | Medication Refill | | 2015 | | NEUROSURGERY [address] | [address] | | | | | [address] | [address], [place] | | | | | [place], [place] | [id number] | | | | | [address] | | | | | | [phone] | | | +--------+--------+ + + + [...] Notes Telephone Encounter - Edna Mcdermott - 07/04/2015 3:48 PM PSTMark is advised per NICKOLAS Barbour. He verbalized understanding. Electronically signed by Edna Mcdermott at 016 3:48 PM PSTTelephone Encounter - Haroldo King PA - 07/03/2015 4:05 PM PSTAs t he patient is greater than 90 days postoperative. Future refill medication should be discus sed with his primary care provider and authorized through their office. Thank youProsper kebede signed by NICKOLAS Schuster at 07/03/2015 4:05 PM PSTTelephone Encounter - Edna Barber - 07/03/2015 2:38 PM PSTS/P C3-7 ACDF 07/26/14 Refill request received from pharmacy. Last refill 07/27/14 d ocumented in this encounter Plan of Treatment +--------+ [...] | | | | | | [place] | | | | | | [place] [address] | | | | | | [phone] | | | | | | | | +--------+ + + + + | 03/13/ | Office | Neurology | Veronica, | | | 2019 | Visit | | Zeeramonaotilio [address] | | | | | | [address] [facility] [place], | | | | | | [place] [address] | | | | | | [phone] | | | | | | | | +--------+ + + + + documented as of this encounter Visit Diagnoses + + | Diagnosis | + + | S/P cervical spinal fusion - Primary Arthrodesis status | + + documented in this encounter"
--- OUTSIDE RECORDS SUMMARY | ~2019-12-22 | XMS | Encounter Summary ---
Demographics + + + | Address | [address] | | | [place] [address] | + + + | Home Phone [...] | Organization | [facility] [...] Team Providers + +------+ + | Care Pharmacy Associate Name | Role | Phone | + +------+ + | Dominic Carlin MD | PCP | | + +------+ + Encounter Details +--------+ + + + + | Date | Type | Department | Care Team | Description | +--------+ + + + + | 12/22/ | Orders Only | [facility] | Provider, | | | 2019 | | SYSTEM GENERIC OP | MD Kathy [address] | | | | | [address] | [address]. [place] | | | | | [address] [place], [place] | [place] [address] | | | | | [address] | | | | | | [phone] | | | +--------+ + + + [...] | | | | | [place] [address] | | | | | | [phone] | | | | | | | | +--------+ + + + + | 03/13/ | Office | Neurology | Veronica, | | | 2020 | Visit | | [address] | | | | | | [address] [place], | | | | | | [place] [address] | | | | | | [phone] | | | | | | | | +--------+ + + + + documented as of this encounter Visit Diagnoses Not on filedocumented in this encounter"
--- OUTSIDE RECORDS SUMMARY | ~2019-12-22 | XMS | Encounter Summary ---
Demographics + + + | Address | [address] | | | [place] [address] | + + + | Home Phone | | + + + | Preferred Language | Unknown | + + + | Marital Status | Single | + + + | Samaritan Affiliation | Unknown | + + + | Race | or | + + + | Ethnic Group | Not or | + + + Author + + + | Author | [facility] | + + + | Organization [...] Providers + +------+ + | Care Assistant Professor Surgical Technology Name | Role | Phone | + [...] | | | | | | [place], | | | | | | | [place] | | | | | | | [address] | | | | | | | Phone: | | | | | | | [phone] | | | | | | | Fax: | | | | | | | [phone] | +--------+--------+ + + + + Encounter Details +--------+ + + + + | Date | Type | Department | Care Team | Description | +--------+ + + + + | 04/17/ | Procedure | Orthopedics Rehab | Oscar Mcclellan MD | EMG - | | 2007 | | and Phys Med at | [address] | Electromyography | | | | [place] for [facility] | [place], | | | | | and Healing [address] | [place] [address] | | | | | [facility] | [phone] | | | | | Health and Healing, | | | | | | [facility] | | | | | | [place], [place] | | | | | | [address] | | | | | | [phone] | | | +--------+ + + + [...] data and waveforms have been scanned into [employer]. The summary is as follows: Motor Nerve [...]
--- OUTSIDE RECORDS SUMMARY | ~2019-12-22 | XMS | Encounter Summary ---
Demographics + + + | Address | [address] | | | [place] [address] | + + + | Home Phone [...] Author + + + | Author | [facility] | + + + | Organization | [facility] | + + + | Address | Unknown | + + + | Phone | Unavailable | + + + Support + + +---------+ + | Name | Relationship | Address | Phone | + + +---------+ + | Gautam Ray | ECON | Unknown | | + + +---------+ + Care Team Providers + +------+ + | Care Surgery Aide Name | Role | Phone | + [...] | 2008 | Visit | Center at [facility] [address] | [address] | Spinal Canal | | | | [address] | [address] [place], [place] | (Primary Dx) | | | | Mailcode: CH8N | [address] | | | | | [facility] | | | | | | and Healing, | | | | | | Building | | | | | | Floor [place], [place] | | | | | | [address] | | | | | | [phone] | | | +--------+---------+ + + + [...]
--- OUTSIDE RECORDS SUMMARY | ~2019-12-22 | XMS | Encounter Summary ---
Demographics + + + | Address | [address] | | | [place] [address] | + + + | Home Phone [...] Team Providers + +------+ + | Care Global Sales Executive Name | Role | Phone | + [...] | MED CTR EXTERNAL | MD Kathy [address] | | | | | IMAGING [address] | Raymon [address] | | | | | [address] [place] | [place] [address] | | | | | [place] [address] | | | | | | [phone] | | | +--------+ + + + [...] | | | TOY Richie [facility] | | | | | | [place] [address] | | | | | | [phone] | | | | | | | | +--------+ + + + + | 03/13/ | Office | Neurology | Veronica, | | | 2019 | Visit | | [address] | | | | | | [address] [place], | | | | | | [place] [address] | | | | | | [phone] | | | | | | | [...]
--- OUTSIDE RECORDS SUMMARY | ~2019-12-22 | XMS | Encounter Summary ---
Demographics + + + | Address | [address] | | | [place] [address] | + + + | Home Phone [...] Author + + + | Author | [facility] | + + + [...] Providers + +------+ + | Care Sales Assoc Name | Role | Phone | + [...] [address] | Angelica Guer[place], | (EMG of left | | | | [address], [address] | [place] [address] | shoulder) | | | | Pavilion [address], | [phone] | | | | | [address] | | | | | | [place], [place] | | | | | | [address] | | | | | | [phone] | | | +--------+ + + + [...] and waveforms have b een scanned into [employer]. The summary is as follows: Motor Nerve [...]
--- OUTSIDE RECORDS SUMMARY | ~2019-12-22 | XMS | Encounter Summary ---
Demographics + + + | Address | [address] | | | [place] [address] | + + + | Home Phone [...] Team Providers + +------+ + | Care Travel Information Center Supervisor Name | Role | Phone | + +------+ + | Dominic Carlin MD | PCP | | + +------+ + Encounter Details +--------+ + + + + | Date | Type | Department | Care Team | Description | +--------+ + + + + | 07/27/ | Hospital | [facility] | Ernesto Thomas, | | | 2015 | Encounter | MED CTR ACUTE | PT [address] | | | | | PHYSICAL THERAPY | [place] | | | | | [address] | [address] | | | | | [place] [address] | | | | | | [phone] | | | +--------+ + + + [...] | | | | | TO[address] Qu[address]z [facility] | | | | | | [place] [address] | | | | | | [phone] | | | | | | | | +--------+ + + + + | 03/13/ | Office | Neurology | Veronica, | | | 2019 | Visit | | [address] | | | | | [address] [place], | | | | | | [place] [address] | | | | | | [phone] | | | | | | | | +--------+ + + + + documented as of this encounter Visit Diagnoses Not on filedocumented in this encounter"
--- OUTSIDE RECORDS SUMMARY | ~2019-12-22 | XMS | Encounter Summary ---
Demographics + + + | Address | [address] | | | [place] [address] | + + + | Home Phone [...] Team Providers + +------+ + | Care Distribution Warehouse Manager Name | Role | Phone | [...] | | | | | | | [place] | | | | | | | [...] | | | | | [address] | [place] | | | | | [place] | [address] | | | | | [address] | [phone] | | | | | [phone] | | | +--------+ + + + [...] EVALUATION Buck Bell 69 y.o. male 1945 [id number] Procedure(s) C3-4, C4-5, C5-6, C6-7 Anterior Cervical [...] signed by Jaswant Calix MD 07/26/2014 14:00 [facility] nesthesia Preprocedur e Evaluation - Jaswant Calix MD - 07/26/2014 8:26 AM PDT ANESTHESIA PREANESTHESIA EVALUATION Buck Bell 69 y.o. male 1945 [id number] Procedure(s): C3-4, C4-5, C5-6, C6-7 Anterior Cervical [...] | | | | | | [place] | | | | | | [place] [address] | | | | | | [phone] | | | | | | | | +--------+ + + + + | 03/13/ | Office | Neurology | Veronica, | | | 2019 | Visit | | [address] | | | | | [address] [place], | | | | | | [place] [address] | | | | | | [phone] | | | | | | | [...] | | | | to Incision, Starting [facility] | | | | | | [...]
--- OUTSIDE RECORDS SUMMARY | ~2019-12-22 | XMS | Encounter Summary ---
Demographics + + + | Address | [address] | | | [place] [address] | + + + | Home Phone [...] Team Providers + +------+ + | Care Sheet Fed Printer Name | Role | Phone | + [...] | | [address] | [place] [address] | instructions) | | | | [place] | [phone] | | | | | [address] | | | | | | [phone] | | | +--------+ + + + [...] Edna Mcdermott S - 07/25/2014 10:24 AM Rzea's surgery time has c hanged due to [...] | | | | | TOY [facility] | | | | | | [place] [address] | | | | | | [phone] | | | | | | | | +--------+ + + + + | 03/13/ | Office | Neurology | Veronica, | | | 2019 | Visit | | [address] | | | | | | [address] [place], | | | | | | [place] [address] | | | | | | [phone] | | | | | | | | +--------+ + + + + documented as of this encounter Visit Diagnoses Not on filedocumented in this encounter"
--- OUTSIDE RECORDS SUMMARY | ~2019-12-22 | XMS | Encounter Summary ---
Demographics + + + | Address | [address] | | | [place] [address] | + + + | Home Phone [...] + + + | Author | [facility] | | | and [place] | + + + | Organization | [facility] | | | [...] Team Providers + +------+ + | Care Diabetic Educator Name | Role | Phone | + [...] | | [address] | [place] [address] | | | | | [place] [address] | | | | | | [phone] | | | +--------+ + + + [...] [place] | | | | | | [place] [address] | | | | | | [phone] | | | | | | | | +--------+ + + + + | 03/13/ | Office | Neurology | Veronica, | | | 2019 | Visit | | [address] | | | | | | [address] [facility] [place], | | | | | | [place] [address] | | | | | | [phone] | | | | | | | [...]
--- OUTSIDE RECORDS SUMMARY | ~2019-12-22 | XMS | Encounter Summary ---
Demographics + + + | Address | [address] | | | [place] [address] | + + + | Home Phone [...] Team Providers + +------+ + | Care Foreign Student Adviser Name | Role | Phone | + [...] [address] | | | | | [place] [address] | | | | | | [phone] | | | +--------+ + + + [...] PDTCalled and spoke with sondra Lennon from [facility], patient has significant dementia and significant [...] | | | | | TO[address] [facility] | | | | | | [place] [address] | | | | | | [phone] | | | | | | | | +--------+ + + + + | 03/13/ | Office | Neurology | Veronica, | | | 2019 | Visit | | [address] | | | | | | [address] [place], | | | | | | [place] [address] | | | | | | [phone] | | | | | | | | +--------+ + + + + documented as of this encounter Visit Diagnoses Not on filedocumented in this encounter"
--- OUTSIDE RECORDS SUMMARY | ~2019-12-22 | XMS | Encounter Summary ---
Demographics + + + | Address | [address] | | | [place] [address] | + + + | Home Phone [...] Team Providers + +------+ + | Care Dairy Department Manager Name | Role | Phone | [...] | | [address] | [place] [address] | | | | | [place] | [phone] | | | | | [address] | | | | | | [phone] | | | +--------+ + + + [...] | | | | | TOY E [facility] | | | | | | [place] [address] | | | | | | [phone] | | | | | | | | +--------+ + + + + | 03/13/ | Office | Neurology | Veronica, | | | 2019 | Visit | | [address] | | | | [address] [place], | | | | | | [place] [address] | | | | | | [phone] | | | | | | | | +--------+ + + + + documented as of this encounter Visit Diagnoses Not on filedocumented in this encounter
--- OUTSIDE RECORDS SUMMARY | ~2019-12-22 | XMS | Encounter Summary ---
Demographics + + + | Address | [address] | | | [place] [address] | + + + | Home Phone [...] Phone | + + +---------+ + | Breanen Merrickjessa | ECON | Unknown | | + + +---------+ + Care Team Providers + +------+ + | Care Conservation Policy Analyst Name | Role | Phone | [...] Dizziness | HALI Grimes | [address] | | | | | and | [address] | [place], | | | | | giddiness | [address] | [place] | | | | | Procedures | [place], | [address] | | | | | MRI Brain wo | [place] [address] | Phone: | | | | | Contrast | Phone: | [phone] | | | | | | [phone] | Fax: | | | | | | Fax: | [phone] | | | | | | [phone] | | +--------+--------+ + + + + [...] Dizziness | COLEEN GrimesP | [address] | | | | | and | [address] | [place], | | | | | giddiness | [address] | [place] | | | | | Procedures | [place], | [address] | | | | | MRI Brain wo | [place] [address] | Phone: | | | | | Contrast | Phone: | [phone] | | | | | | [phone] | Fax: | | | | | | Fax: | [phone] | | | | | | [phone] | | +--------+--------+ + + + + Encounter Details +--------+ + + + + | Date | Type | Department | Care Team | Description | +--------+ + + + + | 05/22/ | Hospital | [facility] | Sydney Lennon, | Dizziness and | | 2020 | Encounter | MED CTR MRI [address] | SEAL MIXING OPERATOR [address] | [place] | | | | [place], | [place] | | | | | [place] [address] | [address] | | | | | [phone] | | | +--------+ + + + [...] | | | | | TOY [facility] | | | | | | [place] [address] | | | | | | [phone] | | | | | | | | +--------+ + + + + | 03/13/ | Office | Neurology | Veronica, | | | 2019 | Visit | | [address] | | | | [address] [place], | | | | | | [place] [address] | | | | | | [phone] | | | | | | | [...]
--- OUTSIDE RECORDS SUMMARY | ~2019-12-22 | XMS | Encounter Summary ---
Demographics + + + | Address | [address] | | | [place] [address] | + + + | Home Phone [...] Team Providers + +------+ + | Care Cafeteria Supervisor Name | Role | Phone | + +------+ + | Sydney Lennon | PCP | | + +------+ + Encounter Details +--------+ + + + + | Date | Type | Department | Care Team | Description | +--------+ + + + + | 11/23/ | Preadmit | [facility] | Salvador Jose MD | Pre-op testing | | 2020 | Visit | CENTER [facility] | [address] | (Primary Dx) | | | | CLINIC [address] | [address] | | | | | [address] [place], [place] | [place] [address] | | | | | [address] | [phone] | | | | | [phone] | | | +--------+ + + + [...] + + + | Blood Pressure | 124/65 | 11/24/2019 11:46 AM | | | | | PDT | | + + + + + | Pulse | 57 | 11/24/2019 11:46 AM | | | | | PDT | | + + + + + | Temperature | - | - | | + + + + + | Respiratory Rate | 18 | 11/24/2019 11:46 AM | | | | | PDT | | + + + + + | Oxygen Saturation | 97% | 11/24/2019 11:46 AM | | | | | PDT | | + + + + + | Inhaled Oxygen | - | - | | | Concentration | | | | + + + + + | Weight | 88.5 kg (195 lb) | 11/24/2019 11:46 AM | | | | | PDT | | + + + + + | Height | 170.2 cm (5' 7") | 11/24/2019 11:46 AM | | | | | PDT | | + + + + + | Body Mass Index | 30.54 | 11/24/2019 11:46 AM | | | | | PDT [...] documented as of this encounter Patient Instructions Instructions Shelly Livingston RN - 11/24/2019 Outpatient Medications Marked as Taking for the 11/24/19 encounter (Preadmit Visit) with [facility] ROOM 3 Medication Sig Instructions acetaminophen (TYLENOL) 325 mg tablet Take 650 mg by mouth every 4 hours as needed for Pain. TAKE day of procedure, if needed amLODIPine (NORVASC) 10 MG tablet Take 10 mg by mouth daily. TAKE day of procedure aspirin 81 MG tablet Take 81 mg by mouth daily. TAKE day of procedure Aspirin Buf,EpHnhq-ZwZtsp-UqG, 81 MG TABS Take 81 mg by mouth. DO NOT TAKE day of proce dure atorvaSTATin (LIPITOR) 80 MG tablet Take 80 mg by mouth daily. TAKE night before proced ure butalbital-acetaminophen (ALLZITAL) 25-325 mg per tablet Take 2 tablets by mouth every 4 hours as needed for Headaches. DO NOT TAKE day of procedure cholecalciferol (VITAMIN D-3) 125 mcg (5,000 units) tablet Take 125 mcg by mouth Daily. HOLD prior to procedure. Take last dose 11/26/2019 clopidogrel (PLAVIX) 75 mg tablet Take 1 tablet by mouth daily. TAKE day of procedure cyanocobalamin (VITAMIN B-12) 500 mcg tablet Take 1,000 mcg by mouth Daily. HOLD prior to procedure. Take last dose 11/26/2019 lisinopril (PRINIVIL, ZESTRIL) 10 mg tablet Take 10 mg by mouth daily. DO NOT TAKE day of procedure meclizine (ANTIVERT) 25 mg tablet Take 25 mg by mouth 3 times daily as needed. TAKE day of procedure, if needed promethazine (PHENERGAN) 25 mg tablet Take 1 tablet by mouth every 6 hours as needed. Prashanth BALDWIN day of procedure, if needed documented in this encounter Plan of Treatment [...] | | | TOY [address] [facility] | | | | | | [place] [address] | | | | | | [phone] | | | | | | | | +--------+ + + + + | 03/13/ | Office | Neurology | Veronica, | | | 2019 | Visit | | [address] | | | | | | [address] [facility] [place], | | | | | | [place] [address] | | | | | | [phone] | | | | | | | [...] + +---------+ + + Type and Screen (11/24/2019 11:47 AM PDT) + + + + + [...] + + + + | Antibody | Testing performed at | | [facility] | | | Screen | [facility];[address] | | LABORATORY | | | | [address];[place] [address] | | | | + + + + + + + + | Specimen | + + | Blood | + + + + + + + | Performing | Address | City/State/Zipcode | Phone Number | | Organization | | | | + + + + + | [facility] | [address] | [place] [address] | [phone] | + + + + + Basic Metabolic Panel (11/24/2019 11:47 AM PDT) + + + + + + | Component | Value | Ref Range | Performed | Pathologist | | | | | At | Signature | + + + + + + | Na | 139 | 135 - 145 | [facility] | | | | | mmol/L | LABORATORY | | + + + + + + | K | 4.3 | 3.5 - 4.9 | [facility] | | | | | mmol/L | LABORATORY | | + + + + + + | Cl | 105 | 99 - 109 mmol/L | [facility] | | | | | | LABORATORY | | + + + + + + | CO2 | 27 | 23 - 32 mmol/L | [facility] | | | | | | LABORATORY | | + + + + + + | Anion Gap | 11 | 5 - 20 mmol/L | [facility] | | | | | | LABORATORY | | + + + + + + | Glucose | 84 | 65 - 99 mg/dL | [facility] | | | | | | LABORATORY | | + + + + + + | BUN | 17 | 8 - 25 mg/dL | [facility] | | | | | | LABORATORY | | + + + + + + | Creatinine | 0.83 | 0.70 - 1.30 | [facility] | | | | | mg/dL | LABORATORY | | + + + + + + | BUN/Creatin | 20 | | [facility] | | | ine Ratio | | | LABORATORY | | + + + + + + | Calcium | 9.5 | 8.5 - 10.5 | [facility] | [...] | | | | | performed at [facility];[address] | | | | | | [address];[place] | | | | | | [address] | | | | + + + + + + + + | Specimen | + + | Blood | + + + + + + + | Performing | Address | City/State/Zipcode | Phone Number | | Organization | | | | + + + + + | [facility] | [address] | [place] [address] | [phone] | + + + + + CBC no Differential (11/24/2019 11:47 AM PDT) + + + + + + | Component | Value | Ref Range | Performed | Pathologist | | | | | At | Signature | + + + + + + | WBC | 7.96 | 3.80 - 11.00 | [facility] | | | | | K/uL | LABORATORY | | + + + + + + | Red Blood | 4.29 | 4.20 - 5.70 | [facility] | | | Cells | | M/uL | LABORATORY | | + + + + + + | Hemoglobin | 12.4 (L) | 13.2 - 17.0 | [facility] | | | | | g/dL | LABORATORY | | + + + + + + | Hematocrit | 39.0 | 39.0 - 50.0 % | [facility] | | | | | | LABORATORY | | + + + + + + | MCV | 90.9 | 80.0 - 100.0 fl | [facility] | | | | | | LABORATORY | | + + + + + + | MCH | 28.9 | 27.0 - 34.0 pg | [facility] | | | | | | LABORATORY | | + + + + + + | MCHC | 31.8 (L) | 32.0 - 35.5 | [facility] | | | | | g/dL | LABORATORY | | + + + + + + | RDW-SD | 48.3 | 37 - 53 fl | [facility] | | | | | | LABORATORY | | + + + + + + | Platelet | 237 | 150 - 400 K/uL | [facility] | | | Count | | | LABORATORY | | + + + + + + | MPV | 9.5Comment: NO NORMAL | fl | [facility] | | | | RANGE ESTABLISHEDTesting | | LABORATORY | | | | performed at [facility];[address] | | | | | | [address];[place] | | | | | | [address] | | | | + + + + + + + + | Specimen | + + | Blood | + + + + + + + | Performing | Address | City/State/Zipcode | Phone Number | | Organization | | | | + + + + + | [facility] | [address] | [place] [address] | [phone] | + + + + + documented in this encounter Visit Diagnoses + + | Diagnosis | + + | Pre-op testing - Primary Preoperative examination, unspecified | + + documented in this encounter
--- OUTSIDE RECORDS SUMMARY | ~2019-12-22 | XMS | Encounter Summary ---
Demographics + + + | Address | [address] | | | [place] [address] | + + + | Home Phone | | + + + | Preferred Language | Unknown | + + + | Marital Status | Single | + + + | Caodaism Affiliation | [id number] | + + + | Race | Unknown | + + + | Ethnic Group | Unknown | + + + Author + + + | Author | [facility] | | | and [place] | + + + | Organization | [facility] | | | [...] Team Providers + +------+ + | Care Greige Goods Inspector Name | Role | Phone | + +------+ + PCP | Unavailable | + +------+ + Encounter Details +--------+ + + + + | Date | Type | Department | Care Team | Description | +--------+ + + + + | 05/16/ | Hospital | [facility] | Conversion | DDD (degenerative | | 2012 | Encounter | [facility] MRI | Transaction, | disc disease); | | | | [address] | Provider Unknown | Neuralgia; Chronic | | | | [place] | [phone] | ischemic right MCA | | | | [address] | (Fax) | stroke | | | | [phone] | | | +--------+ + + + [...] | | | | | TOY Richie [facility] | | | | | | [place] [address] | | | | | | [phone] | | | | | | | | +--------+ + + + + | 03/13/ | Office | Neurology | Veronica, | | | 2019 | Visit | | HALI Adams [address] | | | [address] [place], | | | | | | [place] [address] | | | | | | [phone] | | | | | | | [...] ISA OSMAN1944MRI CERVICAL | | SPINE WO DJPINOOW59/31/2013 2:28 PM HISTORY: Degenerative disc disease with [...]
--- OUTSIDE RECORDS SUMMARY | ~2019-12-22 | XMS | Encounter Summary ---
Demographics + + + | Address | [address] | | | [place] [address] | + + + | Home Phone [...] Team Providers + +------+ + | Care Coordinate Measuring Machine Technician Name | Role | Phone | + +------+ + PCP | Unavailable | + +------+ + Encounter Details +--------+ + + + + | Date | Type | Department | Care Team | Description | +--------+ + + + + | 05/16/ | Hospital | [facility] | Conversion | DDD (degenerative | | 2012 | Encounter | [facility] | Transaction, | disc disease); | | | | [address] | Provider Unknown | Neuralgia; Arterial | | | | [place] | [phone] | ischemic stroke, | | | | [address] | | MCA, left, presumed | | | | [phone] | | (HCC); | | | | [...] | | | | | | [address] | | | | | | [place] [address] | | | | | | [phone] | | | | | | | | +--------+ + + + + | 03/13/ | Office | Neurology | Veronica, | | | 2019 | Visit | | HALI [address] | | | | | | [address] [place], | | | | | | [place] [address] | | | | | | [phone] | | | | | | | [...] PDT ISA OSMAN1944MRI BRAIN WO | | GYEWZCPP31/31/2013 2:28 PM HISTORY: Underlying history of previous [...]
--- OUTSIDE RECORDS SUMMARY | ~2019-12-22 | XMS | Encounter Summary ---
Demographics + + + | Address | [address] | | | [place] [address] | + + + | Home Phone | | + + + | Preferred Language | Unknown | + + + | Marital Status | Single | + + + | Gnosticist Affiliation | [id number] | + + + [...] Providers + +------+ + | Care Director Skills Name | Role | Phone | + +------+ + | Sydney Lennon | PCP | | + +------+ + Encounter Details +--------+ + + + + | Date | Type | Department | Care Team | Description | +--------+ + + + + | 11/23/ | Hospital | [facility] | Salvador Jose MD | Pre-op testing | | 2020 | Encounter | [facility] | [address] | | | | | ELECTRODIAGNOSTICS | [address] | | | | | [address] | [place] [address] | | | | | [place], [place] | [phone] | | | | | [address] | | | | | | [phone] | | | +--------+ + + + [...] | 0 | | | | Mi GarciaOmDcgf-GlAnph-Ay | | | | | 0 | [...] | | | | | | [place] | | | | | | [place] [address] | | | | | | [phone] | | | | | | | | +--------+ + + + + | 03/13/ | Office | Neurology | Veronica, | | | 2019 | Visit | | Angie, PHYSICAL MEDICINE TEACHER [address] | | | | | | [address] [facility], | | | | | | [place] [address] | | | | | | [phone] | | | | | | | [...]
--- OUTSIDE RECORDS SUMMARY | ~2019-12-22 | XMS | Encounter Summary ---
Demographics + + + | Address | [address] | | | [place] [address] | + + + | Home Phone [...] + | Organization | [facility] | [...] Team Providers + +------+ + | Care Mortgage Loan Originator Name | Role | Phone | + +------+ + PCP | Unavailable | + +------+ + Encounter Details +--------+ + + + + | Date | Type | Department | Care Team | Description | +--------+ + + + + | 11/24/ | Hospital | [facility] | Conversion | | | 2005 - | Encounter | [facility]ENTER [facility] [address] | Transaction, | | | | | [address] | Provider Unknown | | | 11/25/ | | [place], [place] | [phone] | | | 2005 | | [address] | | | | | | [phone] | | | +--------+ + + + [...] | | | | | [address] | | | | | | [place] [address] | | | | | | [phone] | | | | | | | | +--------+ + + + + | 03/13/ | Office | Neurology | Veronica, | | | 2019 | Visit | | [address] | | | | | [address] [place], | | | | | | [place] [address] | | | | | | [phone] | | | | | | | | +--------+ + + + + documented as of this encounter Visit Diagnoses Not on filedocumented in this encounter"
--- OUTSIDE RECORDS SUMMARY | ~2019-12-22 | XMS | Encounter Summary ---
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 | [address] | [place] | [phone] | | [facility] | | [address] | | | - IMAGING | | [...] + | [facility] | [address] | [place], [place] | [phone] | | [facility] | | [address] | | | - LABORATORY | | | | + + + + + | [facility] | [address] | [place] | | | [facility] | | [address] | | | - LABORATORY | | [...] | | | | mg/dL | [facility] | | | | | | MEDICAL | | | | | | CENTER - | | | | | | LABORATORY | | + + + + + + | eGFR, | >60Comment: GLOMERULAR | >=60 | [facility] | | | non- | FILTRATION | mL/min/1.73m2 | [facility] | | | [place]une[place] | RATE,ESTIMATED | | MEDICAL | | | | mL/min/1.39f0Cmhi than | | CENTER - | | [...] | 8.8 | 8.3 - 10.5 | [facility] | | | | | mg/dL | [facility] | | | | | [...] [address] | [place] | [phone] | | [facility] | | [address] | | | - LABORATORY | | | | + + + + + | [facility] | [address] | [place] | | | [facility] | | [address], [facility] | | | - LABORATORY | | [...]
--- OUTSIDE RECORDS SUMMARY | ~2019-12-22 | XMS | Encounter Summary ---
Demographics + + + | Address | [address] | | | [place] [address] | + + + | Home Phone [...] | Organization | [facility] [...] Team Providers + +------+ + | Care Stoker Erector Name | Role | Phone | + [...] | | [address] | [place] [address] | | | | | [place] [address] | | | | | | [phone] | | | +--------+ + + + [...] [place] | | | | | | [place] [address] | | | | | | [phone] | | | | | | | | +--------+ + + + + | 03/13/ | Office | Neurology | Veronica, | | | 2019 | Visit | | [address] | | | | | | [address] [facility], | | | | | | [place] [address] | | | | | | [phone] | | | | | | | [...]
--- OUTSIDE RECORDS SUMMARY | ~2019-12-22 | XMS | Encounter Summary ---
Demographics + + + | Address | [address] | | | [place] [address] | + + + | Home Phone | | + + + | Preferred Language | Unknown | + + + | Marital Status | Single | + + + | Rastafari Affiliation | Unknown | + + + | Race | or | + + + | Ethnic Group | Not or | + + + Author + + + | Author | [facility] | + + + | Organization [...] Team Providers + +------+ + | Care Surveillance Systems Engineer Name | Role | Phone | [...] | | | | | | Rd [place], | | | | | | | [place] | | | | | | | [address] | | | | | | | Phone: | | | | | | | [phone] | | | | | | | Fax: | | | | | | | [phone] | +--------+--------+ + + + + Encounter [...] | | | for Health and | [facility] [address] | and Tendons in | | | | Healing [address] | [place], [place] | Shoulder Region; | | | | [facility] | [address] | Radicular Syndrome | | | | Health and Healing, | [phone] | of [place] | | | | [facility] | | | | | | Floor [place], [place] | | | | | | [address] | | | | | | [phone] | | | +--------+---------+ + + + [...]
--- OUTSIDE RECORDS SUMMARY | ~2019-12-22 | XMS | Encounter Summary ---
Demographics + + + | Address | [address] | | | [place] [address] | + + + | Home Phone [...] | Author | [facility] [employer] [facility] | + + + | Organization | [...] Team Providers + +------+ + | Care Cylinder Batcher Name | Role | Phone | + [...] | | | | | | [place], | | | | | | | [place] | | | | | | | [address] | | | | | | | Phone: | | | | | | | [phone] | | | | | | | Fax: | | | | | | | [phone] | +--------+--------+ + + + + Encounter Details +--------+ + + + + | Date | Type | Department | Care Team | Description | +--------+ + + + + | 04/17/ | Procedure | Orthopedics Rehab | Oscar Mcclellan MD | EMG - | | 2007 | | and Phys Med at | [address] | Electromyography | | | | [place] [facility] | [place], | | | | | and Healing [address] | [place] [address] | | | | | [address] [facility] | [phone] | | | | | Health and Healing, | | | | | | [facility] | | | | | | [place], [place] | | | | | | [address] | | | | | | [phone] | | | +--------+ + + + [...] data and waveforms have been scanned into [employer]. The summary is as follows: Motor Nerve [...] | + + +--------+ + + | [place] MUSCLE TEST, ONE | Procedures | Routin | Carpal Tunnel | Ordered: 04/17/2008 | | LIMB | | e | Syndrome Ulnar | | | | | | Neuritis Cervical | | | | | | Radiculitis | | + + +--------+ + + | [place] MOTOR NERVE | Procedures | Routin | Carpal Tunnel | Ordered: 04/17/2008 | | CONDUCT TEST, W | | e | Syndrome Ulnar | | | F-WAVE | | | Neuritis Cervical | | | | | | Radiculitis | | + + +--------+ + + | [place] NERVE | Procedures | Routin | Carpal [...]
--- OUTSIDE RECORDS SUMMARY | ~2019-12-22 | XMS | Encounter Summary ---
Demographics + + + | Address | [address] | | | [place] [address] | + + + | Home Phone [...] Team Providers + +------+ + | Care Marketing Assistant Retail Division Name | Role | Phone | + [...] | | [address] | [place] [address] | | | | | [place] | [phone] | | | | | [address] | | | | | | [phone] | | | +--------+---------+ + + + [...] from t he original. Wes Melvin MD [address] [place] [address], [address] [place] [address] FAX: NEUROSURGERY FOLLOW-UP CHIEF COMPLAINT: [...] Discectomy Fusion; Surgeon: Wes Melvin MD; Location: [facility] MAIN OR CURRENT MEDICATIONS: Current Outpatient [...] | | [address] [facility] | | | | | | [place] [address] | | | | | | [phone] | | | | | | | | +--------+ + + + + | 03/13/ | Office | Neurology | Veronica, | | | 2019 | Visit | | [address] | | | | | | [address]TH [facility], | | | | | | [place] [address] | | | | | | [phone] | | | | | | | [...]
--- OUTSIDE RECORDS SUMMARY | ~2019-12-22 | XMS | Encounter Summary ---
Demographics + + + | Address | [address] | | | [place] [address] | + + + | Home Phone [...] Team Providers + +------+ + | Care Motion Pictures Cartoonist Name | Role | Phone | + [...] | | [address] | [place] [address] | | | | | [place] | [phone] | | | | | [address] | | | | | | [phone] | | | +--------+---------+ + + + [...] from t he original. Wes Melvin MD [address] [place] [address], [address] [place] [address] FAX: NEUROSURGERY FOLLOW-UP CHIEF COMPLAINT: [...] Discectomy Fusion; Surgeon: Wes Melvin MD; Location: [facility] MAIN OR CURRENT MEDICATIONS: Current Outpatient [...] | | | | | [address] [facility] | | | | | | [place] [address] | | | | | | [phone] | | | | | | | | +--------+ + + + + | 03/13/ | Office | Neurology | Veronica, | | | 2019 | Visit | | [address] | | | | | | [address]TH [facility], | | | | | | [place] [address] | | | | | | [phone] | | | | | | | [...]
--- OUTSIDE RECORDS SUMMARY | ~2019-12-22 | XMS | Clinical Summary ---
Demographics + + + | Address | [address] | | | [place] [address] | + + + | Home Phone [...] Team Providers + +------+ + | Care Hospital Supervisor Name | Role | Phone | [...] | | 07/1 | Disco | | Buf,VgYqdo-BaZxak-Le | | | | | 9/20 | [...] automatically from request for surgery | | [id number] Angio of head and neck October 2019 shows mild to moderate | | right greater than left intracranial ICA atherosclerotic | | narrowing. Mild to moderate narrowing of the intracranial | | anterior circulation, worst along the left M1 segment, as | | described above. Severe narrowing of bilateral TRENCHING MACHINE OPERATOR P3 segments, | | as noted, with [...] systolic function NML, Grade 1 diastolic abnormality, [place] | | visually estimates LVEF 65-70%. Mild [...] | Comment: C spine surgery with Dr. Mlevin in 08/2013 | + + + + [...] | | | | TO[address] [facility] | | | | | | [place] [address] | | | | | | [phone] | | | | | | | | +--------+ + + + + | 03/13/ | Office | Neurology | Veronica, | | | 2019 | Visit | | HALI [address] | | | [address] [place], | | | | | | [place] [address] | | | | | | [phone] | | | | | | | [...] Right: | GARCÍA | | 03/30/ | [id number] | | - Sn/AImplanted: Qty: 1 on | | | BIOSCIENCE | | 2023 | N /N/A | | 12/01/2019 by Salvador Jose, | | Rachelle | - KELLIE | | | | | at [facility] | | d | | | | /[id number] | | [facility] | | | | | | 11-143 | | | | | | | | 5476 | + +-------+--------+ +--------+--------+--------+ | Allgrft Grftn Pls 1cc Aseptic | | N/A: | OSTEOTECH - | | 03/15/ | [id number] | | - [id number]: Qty: | | Spine | OSTT | | 2015 | | | 1 on 07/26/2014 by Olegario, | | Cervic | | | | /[id number] | | Wes Rasmussen MD at [facility] | | al | | | | 1-069 | | [facility] | | | | | | / | + +-------+--------+ +--------+--------+--------+ | Allograft Lordotic [id number] - | | N/A: | SOFAMOR | | 03/27/ | [id number] | | [id number]: Qty: 1 on | | Spine | DANEK - DIV | | 2016 | | | 07/26/2014 by Wes Melvin, | | Agustina | MEDTRONIC | | | /[id number] | | at [facility] | | al | - SFDK | | | 137 | | [facility] | | | | | | /[id number] | | | | | | | | 3633 | + +-------+--------+ +--------+--------+--------+ | Allogft Lordtc Bone Sr | | N/A: | SPINALGRAFT | | 03/19/ | [id number] | | [id number] - [id number]: | | Spine | | | 2016 | | | Qty: 1 on 07/26/2014 by Olegario, | | Agustina | TECHNOLOGIE | | | /[id number] | | Wes Rasmussen MD at [facility] | | al | S - SPNL | | | 822 | | [facility] | | | | | | /[id number] | | [place] | | | | | | [address]80 | + +-------+--------+ +--------+--------+--------+ | Allograft Lordotic [id number] - | | N/A: | SOFAMOR | | 03/27/ | [id number] | | [id number]: Qty: 1 on | | Spine | DANEK - DIV | | 2016 | | | 07/26/2014 by Wes Melvin, | | Agustina | MEDTRONIC | | | /[id number] | | at [facility] | | al | - SFDK | | | 141 | | [facility] | | | | | | /[id number] | | | | | | | | 3633 | + +-------+--------+ +--------+--------+--------+ | Allogft Lordtc Bone Sr | | N/A: | SPINALGRAFT | | 03/23/ | [id number] | | [id number] - [id number]: | | Spine | | | 2016 | | | Qty: 1 on 07/26/2014 by Olegario, | | Agustina | TECHNOLOGIE | | | /[id number] | | Wes Rasmussen MD at [facility] | | al | S - SPNL | | | 967 | | [facility] | | | | | | /[id number] | | [place] | | | | | | [address] | + +-------+--------+ +--------+--------+--------+ | Screw Slf-Americo F/A 4.5x17mm - | | N/A: | SOFAMOR | | | [id number] | | [id number]: Qty: 2 on | | Spine | DANEK - DIV | | | | | 07/26/2014 by Wes Melvin, | | Cervic | MEDTRONIC | | | | | MD at [facility] | | al | - SFDK | | | | | [facility] | | | | | | | + +-------+--------+ +--------+--------+--------+ | Screw Slf-Drl V/A 4.0x16mm - | | N/A: | SOFAMOR | | | [id number] | | [id number]: Qty: 6 on | | Spine | DANEK - DIV | | | | | 07/26/2014 by Wes Melvin, | | Cervic | [employer]TR[employer]IC | | | | | MD at [facility] | | al | - SFDK | | | | | [facility] | | | | | | | + +-------+--------+ +--------+--------+--------+ | Screw Slf-Drl V/A 4.0x17mm - | | N/A: | SOFAMOR | | | [id number] | | [id number]: Qty: 2 on | | Spine | DANEK - DIV | | | | | 07/26/2014 by Wes Melvin, | | Cervic | MEDTRONIC | | | | | MD at [facility] | | al | - SFDK | | | | | [facility] | | | | | | | + +-------+--------+ +--------+--------+--------+ | Plate Ant [place] Cerv 80mm | | N/A: | MEDTRONIC - | | | [id number] | | - [id number]: Qty: 1 | | Spine | MEDT | | | 0 / / | | on 07/26/2014 by Wes Melvin | | Agustina | | | | | | MD Valery at [facility] | | al | | | | | | [facility] | | | | | [...] Procedure Note | + + | [place], [id number] - 12/13/2019 11:59 AM PDT | | [...] LABORATORY | | | | performed at [facility], [address] | | | | | [address], | | | | | | [place] [address] | | | | + + + + + + + + | Specimen | + + | Blood | + + + + + + + | Performing | Address | City/State/Zipcode | Phone Number | | Organization | | | | + + + + + | [facility] | [address] | [place] [address] | [phone] | + + + + + Basic [...] | 8.6 | 8.5 - 10.5 | [facility] | | | | | mg/dL | [...] W | | | | | | [facility], | | | | | | [place] [address] | | | | + + + + + + + + | Specimen | + + | Blood | + + + + + + + | Performing | Address | City/State/Zipcode | Phone Number | | Organization | | | | + + + + + | [facility] | [address] | [place] [address] | [phone] | + + + + + CBC [...] | | | Absolute | performed at [facility], [address] | [address] | LABORATORY | | | | [address], | | | | | | [place] [address] | | | | + + + + + + + + | Specimen | + + | Blood | + + + + + + + | Performing | Address | City/State/Zipcode | Phone Number | | Organization | | | | + + + + + | [facility] | [address] | [place] [address] | [phone] | + + + + + Hemoglobin [...] [facility] | | | | performed at [facility];[address] | | LABORATORY | | | | [address];[place] | | | | | | [address] | | | | + + + + + + + + | Specimen | + + | Blood | + + + + + + + | Performing | Address | City/State/Zipcode | Phone Number | | Organization | | | | + + + + + | [facility] | [address] | [place] [address] | [phone] | + + + + + Surgical [...] | | | with extensive calcification. JVR:[facility]:C2NR MICROSCOPIC | | | EXAMINATION:Histologic sections of [...] | | | component was performed by [facility], [address] [place] [address], | | | [place] [address] (Dev Technical Mgr: Shannan Archer MD; CLIA# | | | [id number]). Professional interpretation was performed by[facility] | | | [facility] | | | [place] [address] (Dev Technical Mgr: Issa | | | Kam Palacio). Diagnostician: Issa Palacio | | | MDPathologistElectronically Signed 12/05/2019 | | |The technical component was performed by [facility], [address] [place] [address] (Dev Technical Mgr: Shannan Archer MD; CLIA# [id number]). Professional interpretation w as performed by | | |[facility] [place] [address] (Dev Technical Mgr: Issa Palacio M.D.). | | | | [...] + + + | [facility] | [id number] | | [facility] | | | | | | LABORATORY | | + + + + + + | [facility] | Testing performed at | | [facility] | | | | [facility];[address] | | LABORATORY | | | | [address];[place] [address] | | | | + + + + + + + + | Specimen | + + | Blood | + + + + + + + | Performing | Address | City/State/Zipcode | Phone Number | | Organization | | | | + + + + + | [facility] | [address] | [place] [address] | [phone] | + + + + + ECG [...] +---------+--------+ | [facility] | VETERA | [id number] | | | | Indemn | | | NS | | 017-Pr | | | ity | | | ADMIN | | esent | | | | | | [place] | | | | | | | | [place] | | | | | | + +--------+ +--------+ +---------+--------+ | MEDICARE | MEDICA | [id number] | 11/15/19 | [phone] | | Medica | | | RE | | 16-Pre | 5 | | re | | | PART A | | sent | | | | | | AND B | | | | | | + +--------+ +--------+ +---------+--------+ | MEDICARE | MEDICA | [id number] | 11/15/19 | [phone] | | Medica | | | RE | | 16-Pre | 5 | | re | | | PART A | | sent | | | | | | AND B | | | | | | + +--------+ +--------+ +---------+--------+ | MEDICARE | MEDICA | [id number] | 11/15/19 | [phone] | | Medica | | | RE | | 16-Pre | 5 | | re | | | PART A | | sent | | | | | | AND B | | | | | | + +--------+ +--------+ +---------+--------+ | [facility] | S | [id number] | 11/14/18 | | | Indemn | | SERVICE | YELLOW | | 99-Pre | | | ity | | | HAWK | | sent | | | | + +--------+ +--------+ +---------+--------+ | [facility] | IHS | [id number] | 07/16/19 | | | Indemn | | SERVICE | YELLOW | | 10-Pre | | | ity | | | HAWK | | sent | | | | + +--------+ +--------+ +---------+--------+ | [facility] | IHS | [id number] | 05/17/19 | | | Indemn | [...] Person | Self | [birth year] | | [address] | | [place] | al/Fam | | 1945 | [phone] | [place], [place] | | | carolyn | | | 9 (Home) | [address] | + +--------+ +--------+ + + | Buck Bell | Person | Self | [birth year] | | [address] | | [place] | al/Fam | | 1945 | [phone] | [place], [place] | | | [place]olyn | | | 9 (Home) | [address] | + +--------+ +--------+ + + | Buck Bell | Person | Self | [birth year] | | [address] | | [place] | al/Fam | | 1945 | [phone] | [place], [place] | | | [place]yn | | | 9 (Home) | [address] | + +--------+ +--------+ + + Advance Directives + + + + + | Type | Date Recorded | Patient | Explanation | | | | De Alcoholizer | | + + + + + | Power of | | | | | General Merchandise Manager | | | | + + [...]
--- OUTSIDE RECORDS SUMMARY | ~2019-12-22 | XMS | Clinical Summary ---
Demographics + + + | Address | [address] | | | [place] [address] | + + + | Home Phone | | + + + | Preferred Language | Unknown | + + + | Marital Status | Single | + + + | Christianity Affiliation | Unknown | + + + [...] Team Providers + +------+ + | Care Electrical Inspector Name | Role | Phone | + +------+ + PCP | Unavailable | + +------+ + Source Comments JOSSUE is fully live on both [facility] Ambulatory and [facility] InPatient.[facility] Allergies No Known Allergies Medications + [...] | + +--------+ +--------+-------+---------+--------+ | [facility] | [place] | xxxxxxxxx | Effect | | | [...] Person | Self [birth year] | [address] | | | al/Cristi | | 1945 | [phone] | [place] | | | carolyn | | | 4 (Home) | [id number] | | | | | | [phone] | | | | | | | 0 (Work) | | + +--------+ +--------+ + + | [facility] | Agency | Self | [birth year] | [address] | | | | | 1945 | [phone] | [place] | | | | | | 4 (Home) | [id number] | | | | | | [phone] | | | | | | | 0 (Work) | | + +--------+ +--------+ + + Advance Directives + + + + + | Type | Date Recorded | Patient | Explanation | | | | Mainframe Analyst | | + + + + + | Advance | | | | | Directives and | | | | | Living Will | | | | + + + + + | Power of | | | | | Dam Attendant | | | | + + + + +
--- OUTSIDE RECORDS SUMMARY | ~2019-12-22 | XMS | Encounter Summary ---
Demographics + + + | Address | [address] | | | [place] [address] | + + + | Home Phone [...] Team Providers + +------+ + | Care Inhalation Therapy Aide Name | Role | Phone | + +------+ + | Sydney Lennon | PCP | | + +------+ + Reason for Visit + + + | Reason | Comments | + + + | Follow-up | post Right CEA | + + + Encounter Details +--------+---------+ + + + | Date | Type | Department | Care Team | Description | +--------+---------+ + + + | 12/12/ | Office | [facility] | Salvador Jose MD | Carotid stenosis, | | 2019 | Visit | VASCULAR SURGERY | [address] | symptomatic, with | | | | [address] | [address] | infarction (HCC) | | | | E [place], [place] | [place] [address] | (Primary Dx) | | | | [address] | [phone] | | | | | [phone] | | | +--------+---------+ + + + [...] +---------+ + + | Blood Pressure | 136/68 | 12/13/2019 10:28 AM | | | | | PDT | | + +---------+ + + | Pulse | 63 | 12/13/2019 10:28 AM | | | | | PDT | | + +---------+ + + | Temperature | - | - | | + +---------+ + + | Respiratory Rate | - | - | | + +---------+ + + | Oxygen Saturation | 100% [...] encounter Progress Notes Salvador Jose MD - 12/13/2019 10:30 AM [facility] [address] [place] [address] Office: [phone] DATE OF VISIT: 12/13/19 PATIENT NAME: Buck Bell : 1945; AGE: 74 y.o.; Sex:M PHONE NUMBER: ; ; ; PHYSICIAN: Salvador Jose MD PRIMARY CARE / REFERRING PHYSICIAN: No ref. provider found / Sydney Lennon, PROFESSOR OF LANGUAGES / [address] / [place] [address] / REASON FOR EVALUATION / CHIEF COMPLAINT: Follow up evaluation s/p right carotid endarte rectomy HISTORY OF PRESENT ILLNESS: Buck Bell is a 74 y.o. male patient who presents fo r follow up evaluation s/p right carotid endarterectomy, performed on 11/30. He was last seen in office for his bilateral carotid stenosis on 11/14. 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 Hisdiagnosis and prognosiswas reviewed withVeronica Jimenez, nurse practiti nerissa and lead case manager at [facility]. Given his recurrent dizzines s and previous CTA findings, patient was referred to vascular surgery for evaluation. Christian g his visit on 11/14, his CTA results from 10/17 were discussed, and showed "right ICA stenosis but 50% in the cavernous region and 85% proximal ICA"."right ICA stenosis but 50% in the cav ernous region and 85% proximal ICA". He was advised to undergo surgical intervention and end arterectomy was recommended. He underwent the procedure on 11/30, and findings during procedu re are as follows: "Severe stenosis right carotid bulb and proximal internal carotid. Patie nt had a large ulcerated plaque." He tolerated the procedure well, however overnight. His h ospital stay was complicated by a right neck hematoma, and delirium requiring restraints. Aditi yañez was ultimately discharged to home in care of his family. Generally, reports doing well si nce his surgery. Today, the patient reports he continues to be stable, though has some persistent discharge from the right side of his neck. He currently admits some mild pain to his testicles, but garcia s not spoken to his PCP about his symptoms. He admits he has been eating and drinking normal ly. He admits some scratching/soreness and dryness to his throat but denies any new hoarsene ss. VITAL SIGNS: BP 136/68 | Pulse 63 | SpO2 100% . ROS: 12-point ROS negative, other per HPI IMAGING: US Carotid Duplex, bilateral, imaging was obtained prior to examination today. Official res ults have not been posted at the time of exam. I have personally reviewed the results and di scussed them with the patient. PHYSICAL EXAM: Constitutional: Well nourished, no signs of distress HENT: Normocephalic and atraumatic. Cranial nerves II-XI are grossly intact. Neck: Oozing old hematoma at the inferior aspect of suture site, no erythema, no purulence. Cardiovascular: regular Pulmonary/Chest: Unlabored at rest Abdominal: Nontender Musculoskeletal: Normal range of motion. Extremities: No edema Back: Very early pressure ulcer to the left buttock Neurological: alert and oriented VASCULAR: palpable carotid ASSESSMENT & PLAN: Mr. Bell is a 74 y.o. male who presents for follow up evaluation s/p right carotid end arterectomy, performed on 11/30. Discussed US Carotid Duplex, bilateral, results from today w ith the patient. The results are encouraging. He continues to have a hematoma to the incisi on site, and his sister states the patient continues to take his abx. I suspect he was picki ng at the incision. Currently what is draining is liquified old hematoma. There is no evid ence of infection. Discussed continued use of his ASA and statin medication. Examined the r eported pain to his buttock/testicles, noted a very early pressure ulcer to the left buttock . Discussed wound care and need for ambulation and movement to prevent worsening ulcer. All questions and concerns addressed. Patient will follow up with my offices in 2 weeks for repe at evaluation. Patient understands and is agreeable. Dictation software, Bitex.la, used which may contain error for similar sounding words even af ter review. Personal communication requested for any clarification. Portions of this chart may have been copied from previous notes for continuity of care purp ose Attending Note: Documentation assistance provided by Daljit Solis (Randy). Information re corded by the jaquelineibotilio has been reviewed and validated by me. I agree with its contents. Signed by: Randy Wolf 12/13/19, 11:11 AM PDT Salvador Jose MD Vascular [...] | | | | | | TOY [address] [facility] | | | | | | [place] [address] | | | | | | [phone] | | | | | | | | +--------+ + + + + | 03/13/ | Office | Neurology | Veronica, | | | 2019 | Visit | | [address] | | | | | | [address] [place], | | | | | | [place] [address] | | | | | | [phone] | | | | | | | | +--------+ + + + + documented as of this encounter Visit Diagnoses + + | Diagnosis | + + | Carotid stenosis, symptomatic, with infarction (HCC) - Primary Occlusion and stenosis | | of carotid artery with cerebral infarction | + + documented in this encounter
--- OUTSIDE RECORDS SUMMARY | ~2019-12-22 | XMS | Encounter Summary ---
Demographics + + + | Address | [address] | | | [place] [address] | + + + | Home Phone | | + + + | Preferred Language | Unknown | + + + | Marital Status | Single | + + + | Synagogue Affiliation | 1041 | + + + | Race | Unknown | + + + | Ethnic Group | Unknown | + + + Author + + + | Author | [facility] | | | and [place] | + + + | Organization | [facility] | | | [...] Team Providers + +------+ + | Care Neurodiagnostic Tech Name | Role | Phone | + +------+ + | Sydney Lennon | PCP | | + +------+ + Encounter Details +--------+ + + + + | Date | Type | Department | Care Team | Description | +--------+ + + + + | 11/23/ | Hospital | [facility] | Salvador Jose MD | Pre-op testing | | 2020 | Encounter | [facility] | [address] | | | | | ELECTRODIAGNOSTICS | [address] | | | | | [address] | [place] [address] | | | | | [place], [place] | [phone] | | | | | [address] | | | | | | [phone] | | | +--------+ + + + [...] | 0 | | | | Mi [id number]-[id number]-Rv | | | | | 0 | [...] | | | | | | [place] | | | | | | [place] [address] | | | | | | [phone] | | | | | | | | +--------+ + + + + | 03/13/ | Office | Neurology | Veronica, | | | 2019 | Visit | | Angie, [address] | | | | | | [address]TH [facility], | | | | | | [place] [address] | | | | | | [phone] | | | | | | | [...]
--- OUTSIDE RECORDS SUMMARY | ~2019-12-22 | XMS | Encounter Summary ---
Demographics + + + | Address | [address] | | | [place] [address] | + + + | Home Phone [...] Author + + + | Author | [facility] | + + + | Organization | [facility] | + + + | Address | Unknown | + + + | Phone | Unavailable | + + + Support + + +---------+ + | Name | Relationship | Address | Phone | + + +---------+ + | Gautam Ray | ECON | Unknown | | + + +---------+ + Care Team Providers + +------+ + | Care Co Founder And Chairman Name | Role | Phone | + [...] in shoulder | [address] | [place], | | | | | region, | [place], [place] | [place] | | | | | unspecified | [address] | [address] | | | | | Procedures | Phone: | Phone: | | | | | CONSULT TO | [phone] | [phone] | | | | | ORTHOPEDICS | | Fax: | | | | | AND | | [phone] | | | | | REHABILITATI | [...] | | PAIN | | [address] | | | | | | | [address] | | | | | | | [place], | | | | | | | [place] | | | | | | | [address] | | | | | | | Phone: | | | | | | | [phone] | | | | | | | Fax: | | | | | | | [phone] | +--------+--------+ + + + + Encounter Details +--------+---------+ + + + | Date | Type | Department | Care Team | Description | +--------+---------+ + + + | 02/08/ | Office | Orthopaedics | Jaswant Angeles MD | Shoulder Pain; | | 2007 | Visit | [facility] | [address] | Unspecified | | | | for Health and | [address] | Disorders of Bursae | | | | Healing [address] | [place], [place] | and Tendons in | | | | [facility] for | [address] | Shoulder Region | | | | Health and Healing, | [phone] | | | | | | | | | | | Floor [place], [place] | | | | | | [address] | | | | | | [phone] | | | +--------+---------+ + + + [...] has underg one physical therapy without significant usp benefit. He has a history of left [...] | | + +---------+ + + | [facility] DEPARTMENT OF | | | [...]
--- OUTSIDE RECORDS SUMMARY | ~2019-12-22 | XMS | Encounter Summary ---
Demographics + + + | Address | [address] | | | [place] [address] | + + + | Home Phone [...] Team Providers + +------+ + | Care Slusher Operator Name | Role | Phone | [...] + + | 10/29/ | Telephone | [facility] | Salvador Jose MD | Paperwork | | 2019 | | VASCULAR SURGERY | [address] | | | | | [address] | [address] [place] | | | | | E [place], [place] | [place] [address] | | | | | [address] | [phone] | | | | | [phone] | | | +--------+ + + + [...] that was sent as well. Please contact [phone] If this is a symptom based call, was patient offered triage? Not Applicable If this is a symptom based call and you were unable to immediately transfer the call to a brandon jane core drilling supervisor was caller made aware that if at [...] | | | | | TOY [address] [facility] | | | | | | [place] [address] | | | | | | [phone] | | | | | | | | +--------+ + + + + | 03/13/ | Office | Neurology | Veronica, | | | 2019 | Visit | | [address] | | | | | | [address] [place], | | | | | | [place] [address] | | | | | | [phone] | | | | | | | | +--------+ + + + + documented as of this encounter Visit Diagnoses Not on filedocumented in this encounter"
--- OUTSIDE RECORDS SUMMARY | ~2019-12-22 | XMS | Encounter Summary ---
Demographics + + + | Address | [address] | | | [place] [address] | + + + | Home Phone [...] + + | Author | [facility] | | | and [place] | + + + | Organization | [facility] | | | and [...] Team Providers + +------+ + | Care Aircraft Engine Installer Name | Role | Phone | + [...] + + | 10/23/ | Telephone | [facility] | Salvador Jose MD | Consult | | 2020 | | VASCULAR SURGERY | [address] | | | | | [address] | [address] | | | | | E [place], [place] | [place] [address] | | | | | [address] | [phone] | | | | | [phone] | | | +--------+ + + + [...] 11:00 AM PDTSpoke with Eva Cuevas at [facility] on behalf of patient, Buck - Scheduled New Patient Consult with Dr. Jose 11/01/2019 @ 11am for Right Carotid Artery - MMN Note: Onset Dementia - History of Stroke - [facility] Connor murillo in this encounter [...] | | | [address] [facility] | | | | | | [place] [address] | | | | | | [phone] | | | | | | | | +--------+ + + + + | 03/13/ | Office | Neurology | Veronica, | | | 2019 | Visit | | [address] | | | | | | [address] [place], | | | | | | [place] [address] | | | | | | [phone] | | | | | | | | +--------+ + + + + documented as of this encounter Visit Diagnoses Not on filedocumented in this encounter"
--- OUTSIDE RECORDS SUMMARY | ~2019-12-22 | XMS | Encounter Summary ---
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; | | | | [address] | | Essential | | | | [phone] | | hypertension; High | | | [...] | | | | | [address] [facility] [place] | | | | | | [place] [address] | | | | | | [phone] | | | | | | | | +--------+ + + + + | 03/13/ | Office | Neurology | Veronica, | | | 2019 | Visit | | [address] | | | | | | [address] [facility], | | | | | | [place] [address] | | | | | | [phone] | | | | | | | [...] | | | Cells | | | [facility] | | | | | | MEDICAL | | | | | | CENTER - | | | | | | LABORATORY | | + + + + + + | Red Blood | 4.68 | 4.30 - 5.70 | [facility] | | | Cells | | M/uL | [facility] | | | | | | MEDICAL | | | | | | CENTER - | | | | | | LABORATORY | | + + + + + + | Hemoglobin | 14.8 | 13.5 - 18.0 | [facility] | | | | | g/dL | [facility] | | | [...] | | | | | | [facility] | | | | [...] + + | [facility] | [address] | [place] | [phone] | | [facility] | | [address] | | | - LABORATORY | | | | + + + + + | [facility] | [address] | [place] | | | [facility] | | [address] | | | - LABORATORY | [...] | | | | mmol/L | [facility] | | | | [...] | non- | FILTRATION | mL/min/1.73m2 | [facility] | | | Trin[place]adian | RATE,ESTIMATED | | MEDICAL | | | | mL/min/1.50s7Wfkq than | | CENTER - | | [...] | ine Ratio | | | [facility] | | | | | | MEDICAL | | | | | | CENTER - | | | | | | LABORATORY | | + + + + + + + + | Specimen | + + | Blood | + + + + + + + | Performing | Address | City/[facility]/Zipcode | Phone Number | | Organization | | | | + + + + + | [facility] | [address] | [place], [place] | [phone] | | [facility] | | [address] | | | - LABORATORY | | | | + + + + + | [facility] | [address] | [place], [place] | | | [facility] | | [id number] [place] [address] | | | - LABORATORY | | [...]
--- OUTSIDE RECORDS SUMMARY | ~2019-12-22 | XMS | Encounter Summary ---
Demographics + + + | Address | [address] | | | [place] [address] | + + + | Home Phone [...] Team Providers + +------+ + | Care Personnel Security Assistant Name | Role | Phone | [...] | | [address] | [place] [address] | | | | | [place] | [phone] | | | | | [address] | | | | | | [phone] | | | +--------+ + + + [...] | | | | | | [place] [address] | | | | | | [phone] | | | | | | | | +--------+ + + + + | 03/13/ | Office | Neurology | Veronica, | | | 2019 | Visit | | [address] | | | | | | [address] [place], | | | | | | [place] [address] | | | | | | [phone] | | | | | | | | +--------+ + + + + documented as of this encounter Visit Diagnoses Not on filedocumented in this encounter
--- OUTSIDE RECORDS SUMMARY | ~2019-12-22 | XMS | Encounter Summary ---
Demographics + + + | Address | [address] | | | [place] [address] | + + + | Home Phone [...] Team Providers + +------+ + | Care Instruction Assistant Principal Name | Role | Phone | + [...] [address] | | | | | [place] [address] | | | | | | [phone] | | | +--------+ + + + [...] some recommendations and the plan of care [facility] forward for this patient. Please call: [facility] [...] CENTER | | | | | | [place] [address] | | | | | | [phone] | | | | | | | | +--------+ + + + + | 03/13/ | Office | Neurology | Veronica, | | | 2019 | Visit | | [address] | | | | | | [address] [place], | | | | | | [place] [address] | | | | | | [phone] | | | | | | | | +--------+ + + + + documented as of this encounter Visit Diagnoses Not on filedocumented in this encounter"
--- OUTSIDE RECORDS SUMMARY | ~2019-12-22 | XMS | Encounter Summary ---
Demographics + + + | Address | [address] | | | [place] [address] | + + + | Home Phone [...] + | Organization | [facility] | [...] Team Providers + +------+ + | Care Laundry Technician Name | Role | Phone | [...] + | 07/03/ | Refill | [facility] | Hraoldo King | Medication Refill | | 2015 | | NEUROSURGERY [address] | [address] | | | | | [address] | [address] [place], [place] | | | | | [place], [place] | [id number] | | | | | [address] | | | | | | [phone] | | | +--------+--------+ + + + [...] | | | | | | [place] | | | | | | [place] [address] | | | | | | [phone] | | | | | | | | +--------+ + + + + | 03/13/ | Office | Neurology | Veronica, | | | 2019 | Visit | | Zeeram[address]ot[address] MAKE READY [address] | | | | | | [address] [facility] [place], | | | | | | [place] [address] | | | | | | [phone] | | | | | | | | +--------+ + + + + documented as of this encounter Visit Diagnoses + + | Diagnosis | + + | S/P cervical spinal fusion - Primary Arthrodesis status | + + documented in this encounter"
--- OUTSIDE RECORDS SUMMARY | ~2019-12-22 | XMS | Encounter Summary ---
Demographics + + + | Address | [address] | | | [place] [address] | + + + | Home Phone [...] Team Providers + +------+ + | Care Recruitment Officer Name | Role | Phone | [...] [address]VE | | | | | [address] [facility] [address] | [place] [address] | | | | | [place] | [phone] | | | | | [address] | | | | | | [phone] | | | +--------+ + + + [...] - 05/21/2014 11:16 AM PSTDetailed voicemail kalpana ledbettre for Buck. Requested a callback to discuss [...] he can be reached by email at [email or web address]. elephone Kiersten - Edna Mcdermott - 05/08/2014 11:23 AM PSTLeft a detailed voicemail for Buck. Requeste d callback. elephone En counter - Krista Yuan - 05/08/2014 10:19 AM PSTPatient called back. Stated he will call b ack later. elephone Jessica madrid - Edna Mcdermott - 05/07/2014 10:26 AM PSTSee referral# [id number]. One level of the surgery requested was [...] one. Chris Melvin MD elephone Kiersten - Krista Yuan - 05/07/2014 9:53 AM PSTPatient called [...] [place] | | | | | | [place] [address] | | | | | | [phone] | | | | | | | | +--------+ + + + + | 03/13/ | Office | Neurology | Veronica, | | | 2019 | Visit | | [address] | | | | | | [address] [place], | | | | | | [place] [address] | | | | | | [phone] | | | | | | | | +--------+ + + + + documented as of this encounter Visit Diagnoses Not on filedocumented in this encounter"
--- OUTSIDE RECORDS SUMMARY | ~2019-12-22 | XMS | Encounter Summary ---
Demographics + + + | Address | [address] | | | [place] [address] | + + + | Home Phone | | + + + | Preferred Language | Unknown | + + + | Marital Status | Single | + + + | Nondenominational Affiliation | Unknown | + + + | Race | or | + + + | Ethnic Group | Not or | + + + Author + + + | Author | [facility] [employer] [facility] | + + + [...] Team Providers + +------+ + | Care Staff Counselor Name | Role | Phone | [...] | | | | | | Rd [place], | | | | | | | [place] | | | | | | | [address] | | | | | | | Phone: | | | | | | | [phone] | | | | | | | Fax: | | | | | | | [phone] | +--------+--------+ + + + + Encounter [...] | | | for Health and | [facility] [address] | and Tendons in | | | | Healing [address] | [place], [place] | Shoulder Region; | | | | [facility] | [address] | Radicular Syndrome | | | | Health and Healing, | [phone] | of [place] | | | | [facility] | | | | | | Floor [place], [place] | | | | | | [address] | | | | | | [phone] | | | +--------+---------+ + + + [...]
--- OUTSIDE RECORDS SUMMARY | ~2019-12-22 | XMS | Encounter Summary ---
Demographics + + + | Address | [address] | | | [place] [address] | + + + | Home Phone [...] + | Organization | [facility] | [...] Team Providers + +------+ + | Care Health Records Technology Teacher Name | Role | Phone | + +------+ + PCP | Unavailable | + +------+ + Encounter Details +--------+ + + + + | Date | Type | Department | Care Team | Description | +--------+ + + + + | 11/24/ | Hospital | [facility] | Conversion | | | 2005 - | Encounter | CENTER SURGICAL [address] | Transaction, | | | | | [address] | Provider Unknown | | | 11/25/ | | [place], [place] | [phone] | | | 2005 | | [address] | | | | | | [phone] | | | +--------+ + + + [...] | | | | | [address] | | | | | | [place] [address] | | | | | | [phone] | | | | | | | | +--------+ + + + + | 03/13/ | Office | Neurology | Veronica, | | | 2019 | Visit | | [address] | | | | | | [address] [place], | | | | | | [place] [address] | | | | | | [phone] | | | | | | | | +--------+ + + + + documented as of this encounter Visit Diagnoses Not on filedocumented in this encounter"
--- OUTSIDE RECORDS SUMMARY | ~2019-12-22 | XMS | Encounter Summary ---
Demographics + + + | Address | [address] | | | [place] [address] | + + + | Home Phone [...] Organization | [facility] [...] Team Providers + +------+ + | Care Supply Chain Logistics Manager Name | Role | Phone | + +------+ + | Sydney Lennon | PCP | | + +------+ + Encounter Details +--------+ + + + + | Date | Type | Department | Care Team | Description | +--------+ + + + + | 12/10/ | Orders Only | [facility] | María Elena Chairez DNP | | | 2020 | | VASCULAR SURGERY | [address] | | | | | [address] | [place] [place], [place] | | | | | [place], [place] | [address] | | | | | [address] | | | | | | [phone] | | | +--------+ + + + [...] | | | | | | [place] [address] | | | | | | [phone] | | | | | | | | +--------+ + + + + | 03/13/ | Office | Neurology | Veronica, | | | 2019 | Visit | | [address] | | | | | | [address]TH [facility], | | | | | | [place] [address] | | | | | | [phone] | | | | | | | | +--------+ + + + + documented as of this encounter Visit Diagnoses Not on filedocumented in this encounter"
--- OUTSIDE RECORDS SUMMARY | ~2019-12-22 | XMS | Encounter Summary ---
Demographics + + + | Address | [address] | | | [place] [address] | + + + | Home Phone [...] Team Providers + +------+ + | Care Electronic Security Technician Name | Role | Phone | [...] | MED CTR EXTERNAL | MD Kathy [address] | | | | | IMAGING [address] | Raymon FRAZIER | | | | | [address] | [place] [address] | | | | | [place] [address] | | | | | | [phone] | | | +--------+ + + + [...] | | | TOY Richie [facility] | | | | | | [place] [address] | | | | | | [phone] | | | | | | | | +--------+ + + + + | 03/13/ | Office | Neurology | Veronica, | | | 2019 | Visit | | HALI [address] | | | | | | [address] [place], | | | | | | [place] [address] | | | | | | [phone] | | | | | | | [...]
--- OUTSIDE RECORDS SUMMARY | ~2019-12-22 | XMS | Encounter Summary ---
Demographics + + + | Address | [address] | | | [place] [address] | + + + | Home Phone [...] Author + + + | Author | [facility] | + + + | Organization | [...] Team Providers + +------+ + | Care Cooky Packer Name | Role | Phone | + [...] [address] | | | | | | [place], [place] | | | | | | [address] | | | +--------+ + + + [...]
--- OUTSIDE RECORDS SUMMARY | ~2019-12-22 | XMS | Encounter Summary ---
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 NICKOLAS Ponce [address] [facility], [address] [place] [address] FAX: NEUROSURGERY HISTORY AND PHYSICAL EXAMINATION CHIEF [...] Body mass index is 33.35 kg/(m^2). GENERAL: uBck Bell is in no acute distress with unlabored respirations. The pa tient does appear uncomfortable throughout the exam today. [...] has no apparent deficits with short or penitentiary memory. CRANIAL NERVES: II: Acuity is intact. [...] Intrinsics 5 4 Ulnar Intrinsics 5 4 Van Driver Strength 5 4 Hip Flexion 4 4 [...] However he should probably wait for at east 3 months before discussing surgery on [...] surgery at both sites. ELECTRONICALLY SIGNED BY: NICKOLAS Ponce, 07/11/2014 9:18 documented in th is [...] | | | | | TOY [facility] | | | | | | [place] [address] | | | | | | [phone] | | | | | | | | +--------+ + + + + | 03/13/ | Office | Neurology | Veronica, | | | 2019 | Visit | | HALI Adams [address] | | | | | | [address] [place], | | | | | | [place] [address] | | | | | | [phone] | | | | | | | [...]
--- OUTSIDE RECORDS SUMMARY | ~2019-12-22 | XMS | Encounter Summary ---
Demographics + + + | Address | [address] | | | [place] [address] | + + + | Home Phone [...] | + + +---------+ + | Breanen Burns | ECON | Unknown | | + + +---------+ + Care Team Providers + +------+ + | Care Pastry Finisher Name | Role | Phone | + [...] [address] | | | | | [place] [address] | | | | | | [phone] | | | +--------+ + + + [...] PDTCalled and spoke with sondra Lennon from [facility], patient has significant dementia and significant [...] [address] | | | | | | [place] [address] | | | | | | [phone] | | | | | | | | +--------+ + + + + | 03/13/ | Office | Neurology | Veronica, | | | 2019 | Visit | | HALI Adams [address] | | | | | | [address] [place], | | | | | | [place] [address] | | | | | | [phone] | | | | | | | | +--------+ + + + + documented as of this encounter Visit Diagnoses Not on filedocumented in this encounter"
--- OUTSIDE RECORDS SUMMARY | ~2019-12-22 | XMS | Encounter Summary ---
Demographics + + + | Address | [address] | | | [place] [address] | + + + | Home Phone [...] | Organization | [facility] [...] Team Providers + +------+ + | Care Microfilm Machine Operator Name | Role | Phone [...] | | | | CLINIC [address] | [place] [address] | Cervical spondylosis | | | | [place] | [phone] | with myelopathy; | | | | [address] | | Essential | | | | [phone] | | hypertension; High | | | [...] | | | | | TOY [address] [facility] [place] | | | | | | [place] [address] | | | | | | [phone] | | | | | | | | +--------+ + + + + | 03/13/ | Office | Neurology | Veronica, | | | 2019 | Visit | | [address] | | | | | | [address] [facility] | | | | | | [place] [address] | | | | | | [phone] | | | | | | | [...] | | | Cells | | | [facility] | | | | | | MEDICAL | | | | | | CENTER - | | | | | | LABORATORY | | + + + + + + | Red Blood | 4.68 | 4.30 - 5.70 | [facility] | | | Cells | | M/uL | [facility] | | | | | | MEDICAL | | | | | | CENTER - | | | | | | LABORATORY | | + + + + + + | Hemoglobin | 14.8 | 13.5 - 18.0 | [facility] | | | | | g/dL | [facility] | | | | | [...] [address] | [place] | [phone] | | [facility] | | [address] | | | - LABORATORY | | | | + + + + + | [facility] | [address] | [place] | | | [facility] | | [email or web address] | | | - LABORATORY | | [...] mL/min/1.73m2 | [facility] | | | Afghan | RATE,ESTIMATED | | MEDICAL | | | | mL/min/1.92a9Oflo than | | CENTER - | | [...] + + | Performing | Address | City/[facility]/Zipcode | Phone Number | | Organization | | | | + + + + + | [facility] | [address] | [place], [place] | [phone] | | [facility] | | [address] | | | - LABORATORY | | | | + + + + + | [facility] | [address] | [place], [place] | | | [facility] | | [id number] [place] [address] | | | - LABORATORY | | [...]
--- OUTSIDE RECORDS SUMMARY | ~2019-12-22 | XMS | Encounter Summary ---
Demographics + + + | Address | [address] | | | [place] [address] | + + + | Home Phone | | + + + | Preferred Language | Unknown | + + + | Marital Status | Single | + + + | Moravian Affiliation | [id number] | + + + [...] Providers + +------+ + | Care Admissions Coordinator Name | Role | Phone | + +------+ + PCP | Unavailable | + +------+ + Encounter Details +--------+ + + + + | Date | Type | Department | Care Team | Description | +--------+ + + + + | 08/31/ | Hospital | [facility] | Joe, | Unspecified Backache | | 2009 | Encounter | CONVERSION DEP [address] | MD Danii | | | | | [address] | | | | | | [place] | | | | | | [address] | | | | | | [phone] | | | +--------+ + + + [...] [facility] | | | | | | [address] | | | | | | [place] [address] | | | | | | [phone] | | | | | | | | +--------+ + + + + | 03/13/ | Office | Neurology | Veronica, | | | 2019 | Visit | | HALI Adams [address] | | | [address] [place], | | | | | | [place] [address] | | | | | | [phone] | | | | | | | [...] Performed At | + + + | [id number] [facility] | | | [facility] [address] | | | , RADIOLOGY | | | Patient Name: ISA OSMAN Date of : 1945 | | | Medical Record: [id number] Account: [id number] O/P// | | | Exam Date/Time: 08/31/2009 [...] exiting right L1 nerve root. There is mkma-zx-qxvviucr left neural | | | foraminal narrowing. [...] lateral | | | recesses. There is oqttbrux-ru-jspdry right and severe left neural | | [...] | bilateral L4 nerve roots. There is uvdjolfk-bj-peuhgo left and severe | | | right [...] AP dimension. There is severe left and yzsufaai-zk-wsrojs right | | | neural foraminal narrowing that is likely impinging on the exiting | | | bilateral L4 nerve roots. L5-S1: There is disk desiccation with | | | bmcryiel-fp-zekqll disk space narrowing and associated degenerative | [...] greatest on the left side. There is ptzsdaqh-uf-yfgjrx right | | | with severe left [...] and L5 nerve roots. 3. Please see oiynb-rs-ohlbk | | | discussion above. Read by AUDRA WILKINS DO | | | 09/02/2009 11:17 A Electronically Signed by AUDRA WILKINS DO | | | 09/02/2009 09:09 P A | | | 04:03 P BALBINA/brisa/[id number]/ cc: MD AUDRA PAIGE R | | | DO CLAUDETTE | | + + + + + | Procedure Note | + + | Chun Colón Conversion - 01/08/2019 4:40 PM PDT | | [id number] | | [facility] | | [facility] [address] | | , | | RADIOLOGY | | | | Patient Name: ISA OSMAN | | Date of : 1945 | | Medical Record: 158-07-06 | | Account: [id number] | | O/P// | | | | [...] exiting right L1 nerve root. There is ooro-tb-uzntgkrh left neural | | foraminal narrowing. | [...] narrowing of both lateral recesses. There is azmlopbd-po-rnhjlc right | | and severe left neural [...] L4 nerve roots. There is | | ssxvnuje-li-cqcnnu left and severe right neural foraminal narrowing [...] AP dimension. There is severe left and awjjveiu-kd-eqomhj right | | neural foraminal narrowing that is likely impinging on the exiting | | bilateral L4 nerve roots. | | | | L5-S1: There is disk desiccation with etvlmopw-hk-suizjr disk space | | narrowing and associated [...] greatest on the left side. There is szhvzeqx-gc-cnkixq | | right with severe left neural [...] nerve roots. | | 3. Please see bnkaw-jj-zeyca discussion above. | | | | | | | | | | | | | | Read by | | AUDRA WILKINS DO 09/02/2009 11:17 A | | Electronically Signed by | | AUDRA WILKINS DO 09/02/2009 09:09 P | | | | A | | P | | BALBINA/brisa/[id number]/ | | cc: DANII MUSE MD | | AUDRA WILKINS DO | + + documented in this encounter Visit Diagnoses + + | Diagnosis | + + | Backache, unspecified | + + documented in this encounter"
--- OUTSIDE RECORDS SUMMARY | ~2019-12-22 | XMS | Encounter Summary ---
Demographics + + + | Address | [address] | | | [place] [address] | + + + | Home Phone | | + + + | Preferred Language | Unknown | + + + | Marital Status | Single | + + + | Orthodox Affiliation | Unknown | + + + | Race | or | + + + | Ethnic Group | Not or | + + + Author + + + | Author | [facility] | + + + | Organization [...] Team Providers + +------+ + | Care Caustic Room Operator Name | Role | Phone | [...] | 2008 | Visit | Center at [facility] [address] | [address] | Sp[place] | | | | [address] | [address] [place], [place] | (Primary Dx) | | | | Mailcode: CH8N | [id number] | | | | | [facility] | | | | | | and Healing, | | | | | | Building | | | | | | Floor [place], [place] | | | | | | [address] | | | | | | [phone] | | | +--------+---------+ + + + [...]
--- OUTSIDE RECORDS SUMMARY | ~2019-12-22 | XMS | Encounter Summary ---
Demographics + + + | Address | [address] | | | [place] [address] | + + + | Home Phone [...] Team Providers + +------+ + | Care Stonecutter Assistant Name | Role | Phone | + +------+ + | Dominic Carlin MD | PCP | | + +------+ + Encounter Details +--------+ + + + + | Date | Type | Department | Care Team | Description | +--------+ + + + + | 07/11/ | [facility] | [facility] | Wes Melvin MD | Cervical cord | | 2015 | Encounter | MED CTR | [address] | myelomalacia (HCC); | | | | [facility] | [place] [address] | Cervical spondylosis | | | | [address] | [phone] | with myelopathy; | | | | [place] [address] | | Essential | | | | [phone] | | hypertension; High | | | [...] + + documented as of this encounter Procedure Notes Issa Garibay MD - 07/12/2014 8:39 AM PSTAssociated Order(s): ECG 12 LEAD Adult ECG Repo rt Name: Buck Bell Age: 69 y.o. Gender: male 07/11/14 at 10:36 Narrative Interpretation: His bradycardia. Normal axis. Normal intervals. documented in this encounter Plan of Treatment [...] [place] | | | | | | [place] [address] | | | | | | [phone] | | | | | | | | +--------+ + + + + | 03/13/ | Office | Neurology | Veronica, | | | 2019 | Visit | | [address] | | | | | | [address] [place], | | | | | | [place] [address] | | | | | | [phone] | | | | | | | [...]
--- OUTSIDE RECORDS SUMMARY | ~2019-12-22 | XMS | Encounter Summary ---
Demographics + + + | Address | [address] | | | [place] [address] | + + + | Home Phone | | + + + | Preferred Language | Unknown | + + + | Marital Status | Single | + + + | Sabianism Affiliation | Unknown | + + + | Race | or | + + + | Ethnic Group | Not or | + + + Author + + + | Author | [facility] | + + + | Organization [...] Team Providers + +------+ + | Care Promotions Assistant Sales Marketing Name | Role | Phone | + [...] [address] | [place], | (EMG of left | | | | [address], [address] | [place] [address] | shoulder) | | | | [address], | [phone] | | | | | [address] | | | | | | [place], [place] | | | | | | [address] | | | | | | [phone] | | | +--------+ + + + [...] and waveforms have b een scanned into SNADEC. The summary is as follows: Motor Nerve [...] | + + +--------+ + + | PA NERVE CONDUCTION | Procedures | Routin | Cervicalgia | Ordered: 02/20/2008 | | TEST,MOTOR | | e | Cervical Radiculitis | | | | | | Pain in Joint, | | | | | | Shoulder Region | | + + +--------+ + + | PA NERVE | Procedures | Routin | Cervicalgia | Ordered: 02/20/2008 | | CONDUCTION,EA | | e | Cervical Radiculitis | | | NERVE,MOTOR,SENSORY | | | Pain in Joint, | | | | | | Shoulder Region | | + + +--------+ + + | PA MUSCLE TEST, ONE | Procedures | Routin [...]
--- OUTSIDE RECORDS SUMMARY | ~2019-12-22 | XMS | Encounter Summary ---
Demographics + + + | Address | [address] | | | [place] [address] | + + + | Home Phone [...] | Organization | [facility] [...] Team Providers + +------+ + | Care Catia Designer Name | Role | Phone | [...] Radiology | Diagnoses | Damon | [address] [facility] | | Review | | | Carotid | Salvador Martin MD | [address] | | | | | stenosis, | [address] | | | | | bilateral | [address] | [address] | | | | | Procedures | [address] | [place], [place] | | | | | CT Angiogram | [place] | [address] | | | | | Head Neck w | [place], [place] | Phone: | | | | | Contrast | [address] | [phone] | | | | | | Phone: | Fax: | | | | | | [phone] | [phone] | | | | | | Fax: | | | | | | | [phone] | | + +--------+ + + + [...] | | Surgery | Right | [place], [place]OLDER [address]EN[place] | Salvador Martin MD | | | | | Carotid | [address] | [address] | | | | | Artery | [address] | [address] | | | | | Occlusion - | [place], | [address] [place] | | | | | 85% | [place] [address] | [place], [place] | | | | | | Phone: | [address] Phone: | | | | | | [phone] | [phone] | | | | | | Fax: | Fax: | | | | | | [phone] | [phone] | +--------+--------+ + + + + Encounter Details +--------+ + + + + | Date | Type | Department | Care Team | Description | +--------+ + + + + | 10/31/ | Virtual | [facility] | Salvador Jose MD | Carotid stenosis, | | 2019 | Office | VASCULAR SURGERY | [address] | bilateral (Primary | | | Visit | [address] | [address] [place] | Dx) | | | | E [place], [place] | [place] [address] | | | | | [address] | [phone] | | | | | [phone] | | | +--------+ + + + [...] the plan. Clinical discussion length: 11-20 min (10541) Patient has not been seen in office [...] carotid stenosis. He is a patient of [facility]. He was seen at the ED at [facility] for headache and ne ck pain complaints in 04/2019 and during this time had a CTA Head and Neck performed. 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 Given his recurrent dizziness and [...] Fusion; Surgeon: Wes Elmore am, MD; Location: [facility] MAIN OR OTHER SURGICAL HISTORY [...] | | [address] [facility] | | | | | | [place] [address] | | | | | | [phone] | | | | | | | | +--------+ + + + + | 03/13/ | Office | Neurology | Veronica, | | | 2019 | Visit | | HALI Adams [address] | | | [address] [place], | | | | | | [place] [address] | | | | | | [phone] | | | | | | | [...]
--- OUTSIDE RECORDS SUMMARY | ~2019-12-22 | XMS | Encounter Summary ---
Demographics + + + | Address | [address] | | | [place] [address] | + + + | Home Phone [...] Team Providers + +------+ + | Care Chuck Wagon Driver Name | Role | Phone | [...] | | | | | | ME | | | | | | | [...] + + | 11/30/ | Surgery | [facility] | Salvador Jose MD | CAROTID | | 2019 | [facility] | [address] | ENDARTERECTOMY | | | | OPERATING ROOM [address] | TOY [address] [facility] | | | | | [address] | [place] [address] | | | | | [place], [place] | [phone] | | | | | [address] | | | | | | [phone] | | | +--------+---------+ + + + [...] Physician Discharge Summary Patient ID: Buck Bell [id number] 74 y.o. 1945 Admit date: 12/01/2019 Discharge [...] as needed. aka: PHENERGAN Discontinued Medications Aspirin Buf(EnAlfm-IqNxjq-LrG) 81 MG Tabs clopidogrel 75 mg tablet [...] Care Everywhere.Carotid Endarte rectomy, Discharge Instructions for (Arabic)documented in this encounter Medications at Time of [...] comfortable taking the patient home either way. [facility] was also notifie d of the [...] MD - 12/03/19 20 11:07 AM PDT [facility] Service: Vascular Surgery Progress Note Hospital Day: LOS: 0 days Post-Op Day: 2 SUBJECTIVE Patient Summary: 74 yo male s/p right CEA for symptomatic carotid stenosis Events Overnight: More aggressive overnight. Patient with known history of vascular dementia with aggressive behaviors. Calm this morning, but in 4 point restraints. [facility] ed. Hemodynamically stable. OBJECTIVE Vital Signs: Vitals: [...] Flako Delgado RN - 12/03/2019 12:15 AM [id number] pulling at burnett and l lb, even with sitter at bedside. When RN tried to assist in boosting pt, pt kicked at RN a nd attempted to punch sitter. Pt held up his hands like claws and said, "I could murder you with these hands!" RN attempted multiple forms of de-escalation. 2345-Mtathias Anderson called due to pt becoming extremely [...] le, and scrabble, other puzzle games like Scaled Inference, [employer]. Play computer/mobile applications such as StyleFactory and Thrupoint GAMES "Patient cannot make medical decisions for [...] Rose MD - 12/02/2019 9:01 AM PDT [facility] Service: Vascular Surgery Progress Note Hospital [...] MD, 12/01/2019 10:52 AM PDT [facility] oSalvador barger MD - 0 11/15/2019 10:30 AM [facility] [address] [place] [address] Office: [phone] DATE OF VISIT: 11/15/19 PATIENT NAME: Buck Bell : 1945; AGE: 74 y.o.; Sex:M PHONE NUMBER: ; (Work); ; PHYSICIAN: Salvador Jose MD PRIMARY CARE / REFERRING PHYSICIAN: No ref. provider found / HALI Thurman / [id number] / [place] [id number] / REASON FOR EVALUATION / CHIEF COMPLAINT: Follow up evaluation regarding bilateral carot id stenosis HISTORY OF PRESENT ILLNESS: Buck Bell is a 74 y.o. male patient who presents fo r follow up regarding his bilateral carotid stenosis. He is a patient at [facility] and was seen at the ED at [facility] for headache and neck pain complaint s in 04/2019. 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 Given his recurrent dizziness and previous [...] Patient understands and is agreeable. Dictation software, LightInTheBox.com, used which may contain error for similar [...] ounter Miscellaneous Notes Plan of Care - Manisah Carrasco, PT - 12/03/2019 9:35 AM PDT Physical Therapy Re-Assessment Note Recommended discharge disposition: senior care facility Post discharge physical therapy recommendation: ongoing [...] two are going to , your next". Medical Staff Services Manager appea r equal and intact. 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 May benefit from MD f/u for possible [...] LTG Status new at 12/02/2019 1250 LTG [place] Level modified independent at 12/02/2019 1250 LTG Assistive Device none at 12/02/2019 1250 All Transfers Goal Most Recent Value LTG Status new at 12/02/2019 1250 LTG [place] Level modified independent at 12/02/2019 1250 LTG Assistive Device 2 wheeled walker (FWW) at 12/02/2019 1250 Gait Goal Most Recent Value LTG Status new at 12/02/2019 1250 LTG [place] Level modified independent at 12/02/2019 1250 LTG [...] Therapy Initial Evaluation Note Recommended discharge disposition: senior care facility Post discharge physical therapy recommendation: will [...] nerves/numbnes s and vascular- lives alone in [place], [place]- he stated no help available to assist him Prior Functional Level Comment: c/o being dizzy since his neck surgery- and numbness in B-h ands/feet Precautions Precaution Comment: c/o dizziness and iqghnzra-K-cuvpn/feet and poor historian Precautions/Limitations: falls, hard of hearing, other (see comments)(looses [facility]) Cognitive Assessment Cognitive Comments: not able to say month- year only hosp- not kadlec- unsure of answers gi vivian -flat affect Mood/Behavior: cooperative Bed Mobility Bed Mobility Comments: declined today- he was up in recliner did not want to do bed mobs b/ c of pain Transfers Additional Documentation: sit to/from stand Sit-Stand, Level of [place]: minimal assist (75% patient effort), verbal cues required Stand-Sit, Level of [place]: verbal cues required, minimal assist (75% patient effort) Hji-Ffrht-Tez, Assistive Device: gait belt, 2 wheeled walker (FWW) Safety Issues: weight-shifting ability decreased Gait Level of [place]: moderate assist (50% patient effort), verbal cues [...] LTG Status new at 12/02/2019 1250 LTG [place] Level modified independent at 12/02/2019 1250 LTG Assistive Device none at 12/02/2019 1250 All Transfers Goal Most Recent Value LTG Status new at 12/02/2019 1250 LTG [place] Level modified independent at 12/02/2019 1250 LTG Assistive Device 2 wheeled walker (FWW) at 12/02/2019 1250 Gait Goal Most Recent Value LTG Status new at 12/02/2019 1250 LTG [place] Level modified independent at 12/02/2019 1250 LTG [...] MD - 12/01/2019 4:[address] [facility] OPERATIVE REPORT PATIENT NAME: Buck Bell [...] | | | | [address] | | | | | | [place] [address] | | | | | | [phone] | | | | | | | | +--------+ + + + + | 03/13/ | Office | Neurology | Veronica, | | | 2019 | Visit | | Angie EVENT [address]OM[address] | | | | | | [address] [facility] [place], | | | | | | [place] [address] | | | | | | [phone] | | | | | | | [...] | >60Comment: GFR <60: | >60 | [facility] | | | GFR | CHRONIC [...] | | | | | | MDRD IDMN traceable | | | | | | equation.Testing | | | | | | performed at [facility], [address] | | | | | | [facility], | | | | | | [place] [address] | | | | + + + + + + + + | Specimen | + + | Blood | + + + + + + + | Performing | Address | City/State/Zipcode | Phone Number | | Organization | | | | + + + + + | [facility] | [address] | [place] [address] | [phone] | + + + + + CBC [...] LABORATORY | | | | performed at [facility], [address] | | | | | [address], | | | | | | [place] [address] | | | | + + + + + + + + | Specimen | + + | Blood | + + + + + + + | Performing | Address | City/State/Zipcode | Phone Number | | Organization | | | | + + + + + | [facility] | [address] | [place] [address] | [phone] | + + + + + Basic [...] | | | | | performed at [facility], [address] | | | | | | [facility], | | | | | | [place] [address] | | | | + + + + + + + + | Specimen | + + | Blood | + + + + + + + | Performing | Address | City/State/Zipcode | Phone Number | | Organization | | | | + + + + + | [facility] | [address] | [place] [address] | [phone] | + + + + + CBC [...] | | | Absolute | performed at [facility], [address] | K/uL | LABORATORY | | | | [address], | | | | | | [place] [address] | | | | + + + + + + + + | Specimen | + + | Blood | + + + + + + + | Performing | Address | City/State/Zipcode | Phone Number | | Organization | | | | + + + + + | [facility] | [address] | [place] [address] | [phone] | + + + + + Hemoglobin [...] | | performed at [facility];[address] | | LABORATORY | | | | [address];[place], [place] | | | | | | [address] | | | | + + + + + + + + | Specimen | + + | Blood | + + + + + + + | Performing | Address | City/State/Zipcode | Phone Number | | Organization | | | | + + + + + | [facility] | [address] | [place] [address] | [phone] | + + + + + Surgical [...] plaque | | | with extensive calcification. JVR:[facility]:C2NR MICROSCOPIC | | | EXAMINATION:Histologic sections [...] | | | component was performed by [facility], [address] [place] [address], | | | [place] [address] (Misdraw Hand: Shannan Archer MD; CLIA# | | | [id number]). Professional interpretation was performed [facility] | | | [facility] | | | [facility] [place] [address] (Misdraw Hand: Issa | | | Kam Palacio). Diagnostician: Issa Palacio | | | MDPathologistElectronically Signed 12/05/2019 | | |The technical component was performed by [employer] [facility], [address] [place] [address] (Misdraw Hand: Shannan Archer MD; IA# [id number]). Professional interpretation w as performed by | | |[facility] [employer] [facility] [address] (Misdraw Hand: Issa Palacio M.D.). | | | | [...] + + + | [facility] | [id number] | | [facility] | | | | | | LABORATORY | | + + + + + + | [facility] | Testing performed at | | JASON | | | | [facility];[address] | | LABORATORY | | | | [place] [address] | | | | + + + + + + + + | Specimen | + + | Blood | + + + + + + + | Performing | Address | City/State/Zipcode | Phone Number | | Organization | | | | + + + + + | [facility] | [address] | [place] [address] | [phone] | + + + + + CBC [...] Absolute | performed at [facility];[address] | K/uL | LABORATORY | | | | [address];[place] | | | | | | [address] | | | | + + + + + + + + | Specimen | + + | Blood | + + + + + + + | Performing | Address | City/State/Zipcode | Phone Number | | Organization | | | | + + + + + | [facility] | [address] | [place] [address] | [phone] | + + + + + Basic [...] | | | | | | MDRD [facility] traceable | | | | | | equation.Testing | | | | | | performed at [facility];[address] | | | | | | [facility];[place], [place] | | | | | | [address] | | | | + + + + + + + + | Specimen | + + | Blood | + + + + + + + | Performing | Address | City/State/Zipcode | Phone Number | | Organization | | | | + + + + + | [facility] | [address] | [place] [address] | [phone] | + + + + + documented [...]
--- OUTSIDE RECORDS SUMMARY | ~2019-12-22 | XMS | Encounter Summary ---
Demographics + + + | Address | [address] | | | [place] [address] | + + + | Home Phone [...] Team Providers + +------+ + | Care Biofuels Production Associate Name | Role | Phone | [...] + + | 11/30/ | Hospital | [facility] | Salvador Jose MD | Carotid stenosis, | | 2019 - | Encounter | [facility] | [address] | right; Carotid | | | | [address] | [address] [facility] | stenosis, right | | 12/02/ | | [place], [place] | [place] [address] | | | 2019 | | [address] | [phone] | | | | | [phone] | | | +--------+ + + + [...] Physician Discharge Summary Patient ID: Buck Bell [id number] 74 y.o. 1945 Admit date: 12/01/2019 Discharge [...] as needed. aka: PHENERGAN Discontinued Medications Aspirin Buf(BuEkss-QxAhjs-RiY) 81 MG Tabs clopidogrel 75 mg tablet [...] comfortable taking the patient home either way. [facility] was also notifie d of the [...] Rose MD - 12/03/19 11:07 AM PDT [facility] Service: Vascular Surgery Progress Note Hospital [...] 12/03/2019 10: 06 AM PDTPatient sitter taken; DILEPE Camp is now sitting in patient room. [...] Flako Delgado RN - 12/03/2019 12:15 AM [id number] pulling at burnett and l lb, even [...] le, and scrabble, other puzzle games like [employer], uberVU. Play computer/mobile applications such as Typekit and Mobile Content Networks GAMES "Patient cannot make medical decisions for [...] Rose MD - 12/02/2019 9:01 AM PDT [facility] Service: Vascular Surgery Progress Note Hospital [...] Salvador Jose MD, 12/01/2019 10:52 AM PDT [facility] barger MD - 0 11/15/2019 10:30 AM [facility] [address] [place] [address] [place] [address] Office: [phone] DATE OF VISIT: 11/15/19 PATIENT NAME: Buck Bell : 1945; AGE: 74 y.o.; Sex:M PHONE NUMBER: ; (Work); ; PHYSICIAN: Salvador Jose MD PRIMARY CARE / REFERRING PHYSICIAN: No ref. provider found / HALI Thurman / [id number] / [place] [id number] / REASON FOR EVALUATION / CHIEF COMPLAINT: Follow up evaluation regarding bilateral carot id stenosis HISTORY OF PRESENT ILLNESS: Buck Bell is a 74 y.o. male patient who presents fo r follow up regarding his bilateral carotid stenosis. He is a patient at [facility] and was seen at the ED at [facility] for headache and neck pain complaint s in 04/2019. 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 Given his recurrent dizziness and [...] Patient understands and is agreeable. Dictation software, Pathflow, used which may contain error for similar [...] Physical Therapy Re-Assessment Note Recommended discharge disposition: detention facility Post discharge physical therapy recommendation: ongoing [...] two are going to , your next". Operations Director appea r equal and intact. 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 May benefit from MD f/u for possible [...] LTG Status new at 12/02/2019 1250 LTG [place] Level modified independent at 12/02/2019 1250 LTG Assistive Device none at 12/02/2019 1250 All Transfers Goal Most Recent Value LTG Status new at 12/02/2019 1250 LTG [place] Level modified independent at 12/02/2019 1250 LTG Assistive Device 2 wheeled walker (FWW) at 12/02/2019 1250 Gait Goal Most Recent Value LTG Status new at 12/02/2019 1250 LTG [place] Level modified independent at 12/02/2019 1250 LTG [...] Therapy Initial Evaluation Note Recommended discharge disposition: detention facility Post discharge physical therapy recommendation: will [...] nerves/numbnes s and vascular- lives alone in [place], [place]- he stated no help available to assist him Prior Functional Level Comment: c/o being dizzy since his neck surgery- and numbness in B-h ands/feet Precautions Precaution Comment: c/o dizziness and zfaqsrji-Q-xxpnu/feet and poor historian Precautions/Limitations: falls, hard of [...] Documentation: sit to/from stand Sit-Stand, Level of [place]: minimal assist (75% patient effort), verbal cues required Stand-Sit, Level of [place]: verbal cues required, minimal assist (75% patient effort) Epw-Gskiq-Akp, Assistive Device: gait belt, 2 wheeled walker (FWW) Safety Issues: weight-shifting ability decreased Gait Level of [place]: moderate assist (50% patient effort), verbal cues [...] LTG Status new at 12/02/2019 1250 LTG [place] Level modified independent at 12/02/2019 1250 LTG Assistive Device none at 12/02/2019 1250 All Transfers Goal Most Recent Value LTG Status new at 12/02/2019 1250 LTG [place] Level modified independent at 12/02/2019 1250 LTG Assistive Device 2 wheeled walker (FWW) at 12/02/2019 1250 Gait Goal Most Recent Value LTG Status new at 12/02/2019 1250 LTG [place] Level modified independent at 12/02/2019 1250 LTG [...] Jose MD - 12/01/2019 4:26 PM PDT [facility] OPERATIVE REPORT PATIENT NAME: Buck Bell AGE: 74 y.o. TODAY'S DATE: 12/01/2019 Surgeon: Surgeon(s): Salvador Jose MD Surgical Assists: Tomasa Jose PA-C (AOM[facility] was required to help with positioning, prepping [...] Salvador Jose MD, 12/01/2019 4:26 PM PDT [facility] documented in this enc ounter Plan of [...] | | | | | | [address] | | | | | | [place] [address] | | | | | | [phone] | | | | | | | | +--------+ + + + + | 03/13/ | Office | Neurology | Veronica, | | | 2019 | Visit | | HALI [address] | | | | | [address] [facility], | | | | | | [place] [address] | | | | | | [phone] | | | | | | | [...] | 8.6 | 8.5 - 10.5 | [facility] | | | | | mg/dL | LABORATORY | | + + + + + + | Estimated | >60Comment: GFR <60: | >60 | [facility] | | | GFR | CHRONIC KIDNEY [...] | | | | | | MDRD IDSC traceable | | | | | | equation.Testing | | | | | | performed at [facility], [address] | | | | | | [facility], | | | | | | [place] [address] | | | | + + + + + + + + | Specimen | + + | Blood | + + + + + + + | Performing | Address | City/State/Zipcode | Phone Number | | Organization | | | | + + + + + | [facility] | [address] | [place] [address] | [phone] | + + + + + CBC [...] LABORATORY | | | | performed at [facility], [address] | | | | | [address], | | | | | | [place] [address] | | | | + + + + + + + + | Specimen | + + | Blood | + + + + + + + | Performing | Address | City/State/Zipcode | Phone Number | | Organization | | | | + + + + + | [facility] | [address] | [place] [address] | [phone] | + + + + + Basic [...] | | | | | performed at [facility], [address] | | | | | | [facility], | | | | | | [place] [address] | | | | + + + + + + + + | Specimen | + + | Blood | + + + + + + + | Performing | Address | City/State/Zipcode | Phone Number | | Organization | | | | + + + + + | [facility] | [address] | [place] [address] | [phone] | + + + + + CBC [...] | | | Absolute | performed at [facility], [address] | K/uL | LABORATORY | | | | [facility], | | | | | | [place] [address] | | | | + + + + + + + + | Specimen | + + | Blood | + + + + + + + | Performing | Address | City/State/Zipcode | Phone Number | | Organization | | | | + + + + + | [facility] | [address] | [place] [address] | [phone] | + + + + + Hemoglobin [...] JASON | | | | performed at [facility];[address] | | LABORATORY | | | | [address];[place], [place] | | | | | | [address] | | | | + + + + + + + + | Specimen | + + | Blood | + + + + + + + | Performing | Address | City/State/Zipcode | Phone Number | | Organization | | | | + + + + + | [facility] | [address] | [place] [address] | [phone] | + + + + + Surgical [...] plaque | | | with extensive calcification. JVR:[facility]:C2NR MICROSCOPIC | | | EXAMINATION:Histologic sections [...] | | | component was performed by [employer] [facility], [address] [place] [address], | | | [place] [address] (Assistant Boys Track Coach: Shannan Archer MD; CLIA# | | | [id number]). Professional interpretation was performed [email or web address] | | | [employer], [facility], [facility] | | | [address] [place] [address] (Assistant Boys Track Coach: Issa | | | Kam Palacio). Diagnostician: Issa Palacio | | | MDPathologistElectronically Signed 12/05/2019 | | |The technical component was performed by [employer], [address] [place] [address] (Assistant Boys Track Coach: Shannan Archer MD; [facility]# [id number]). Professional interpretation w as performed by | | |[employer], [facility], [address] [place] [address] [address] [place] [address] (Assistant Boys Track Coach: Issa Palacio M.D.). | | | | [...] + + + | [facility] | [id number] | | [facility] | | | | | | LABORATORY | | + + + + + + | BB BAND | Testing performed at | | [facility] | | | | [facility];[address] | | LABORATORY | | | | [address];[place] [address] | | | | + + + + + + + + | Specimen | + + | Blood | + + + + + + + | Performing | Address | City/State/Zipcode | Phone Number | | Organization | | | | + + + + + | [facility] | [address] | [place] [address] | [phone] | + + + + + CBC [...] | | | Absolute | performed at [facility];[address] | K/u[address] | LABORATORY | | | | [facility];[place], [place] | | | | | | [address] | | | | + + + + + + + + | Specimen | + + | Blood | + + + + + + + | Performing | Address | City/State/Zipcode | Phone Number | | Organization | | | | + + + + + | [facility] | [address] | [place] [address] | [phone] | + + + + + Basic [...] | | | | | | MDRD IDSC traceable | | | | | | equation.Testing | | | | | | performed at [facility];[address] | | | | | | [facility];[place], [place] | | | | | | [address] | | | | + + + + + + + + | Specimen | + + | Blood | + + + + + + + | Performing | Address | City/State/Zipcode | Phone Number | | Organization | | | | + + + + + | [facility] | [address] | [place] [address] | [phone] | + + + + + documented [...]
--- OUTSIDE RECORDS SUMMARY | ~2019-12-22 | XMS | Encounter Summary ---
Demographics + + + | Address | [address] | | | [place] [address] | + + + | Home Phone [...] Team Providers + +------+ + | Care Family Educator Name | Role | Phone | [...] [place] | | | | | | [address] | | | | | | [phone] | | | +--------+ + + + [...] | | | | TOY [address] [facility] | | | | | | [place] [address] | | | | | | [phone] | | | | | | | | +--------+ + + + + | 03/13/ | Office | Neurology | Veronica, | | | 2019 | Visit | | HALI [address] | | | | | [address] [place], | | | | | | [place] [address] | | | | | | [phone] | | | | | | | | +--------+ + + + + documented as of this encounter Visit Diagnoses Not on filedocumented in this encounter"
--- OUTSIDE RECORDS SUMMARY | ~2019-12-22 | XMS | Encounter Summary ---
Demographics + + + | Address | [address] | | | [place] [address] | + + + | Home Phone [...] | [facility] | + + + | Organization | [facility] | + + + | Address | Unknown | + + + | Phone | Unavailable | + + + Support + + +---------+ + | Name | Relationship | Address | Phone | + + +---------+ + | Gautam Ray | ECON | Unknown | | + + +---------+ + Care Team Providers + +------+ + | Care Wire Frame Lamp Shade Maker Name | Role | Phone | [...] | 2008 | Visit | Center at [facility] [address] | [address] | Spinal Canal | | | | [address] | [address] [place], [place] | (Primary Dx) | | | | Mailcode: CH8N | [address] | | | | | [facility] | | | | | | and Healing, | | | | | | Building | | | | | | Floor [place], [place] | | | | | | [address] | | | | | | [phone] | | | +--------+---------+ + + + [...]
--- OUTSIDE RECORDS SUMMARY | ~2019-12-22 | XMS | Encounter Summary ---
Demographics + + + | Address | [address] | | | [place] [address] | + + + | Home Phone | | + + + | Preferred Language | Unknown | + + + | Marital Status | Single | + + + | Sabianist Affiliation | Unknown | + + + | Race | or | + + + | Ethnic Group | Not or | + + + Author + + + | Author | [facility] | + + + | Organization | [facility] | + + + | Address | Unknown | + + + | Phone | Unavailable | + + + Support + + +---------+ + | Name | Relationship | Address | Phone | + + +---------+ + | Gautam Ray | ECON | Unknown | | + + +---------+ + Care Team Providers + +------+ + | Care Light Truck Driver Name | Role | Phone | [...] | in shoulder | Rd | Rd [place], | | | | | region, | [place], [place] | [place] | | | | | unspecified | [address] | [address] | | | | | Procedures | Phone: | Phone: | | | | | CONSULT TO | [phone] | [phone] | | | | | ORTHOPEDICS | Fax: | Fax: | | | | | AND | [phone] | [phone] | | | | | REHABILITATI | [...] | 2008 | Visit | Center at [facility] [address] | [address] [facility] [address] | Cervical | | | | [address] | Angelica [place], | Radiculopathy | | | | Mailcode: CH8N | [place] [address] | | | | | Antoine for [facility] | [phone] | | | | | and Healing, | | | | | | Building | | | | | | Floor [place], [place] | | | | | | [address] | | | | | | [phone] | | | +--------+---------+ + + + [...]
--- OUTSIDE RECORDS SUMMARY | ~2019-12-22 | XMS | Encounter Summary ---
Demographics + + + | Address | [address] | | | [place] [address] | + + + | Home Phone [...] + + + | Author | [facility] | | | and [place] | + + + | Organization | [facility] | [...] Team Providers + +------+ + | Care Teacher Cclc Name | Role | Phone | + [...] + + | 12/14/ | Telephone | [facility] | Yazmin Jesus, | Follow-up | | 2020 | | VASCULAR SURGERY | RN | | | | | [address] | | | | | | [place] | | | | | | [address] | | | | | | [phone] | | | +--------+ + + + [...] buttock. De sitin ointment also called into [facility] for left buttock early pressure ulcer. Mason [...] | | | | | | [address] | | | | | | [place] [address] | | | | | | [phone] | | | | | | | | +--------+ + + + + | 03/13/ | Office | Neurology | Veronica, | | | 2019 | Visit | | [address] | | | | | | [address] [place], | | | | | | [place] [address] | | | | | | [phone] | | | | | | | | +--------+ + + + + documented as of this encounter Visit Diagnoses Not on filedocumented in this encounter"
--- OUTSIDE RECORDS SUMMARY | ~2019-12-22 | XMS | Encounter Summary ---
Demographics + + + | Address | [address] | | | [place] [address] | + + + | Home Phone [...] Team Providers + +------+ + | Care Pediatric Lpn Name | Role | Phone | + [...] [place] | | | | | | [address] | | | | | | [phone] | | | +--------+ + + + [...] 12/26/ | Office | Vascular Surgery | Salvdaor Jose MD | | | 2019 | Visit | | [address] | | | | | | [address] | | | | | | [place] [address] | | | | | | [phone] | | | | | | | | +--------+ + + + + | 03/13/ | Office | Neurology | Veronica, | | | 2019 | Visit | | [address] | | | | | | [address] [place], | | | | | | [place] [address] | | | | | | [phone] | | | | | | | | +--------+ + + + + documented as of this encounter Visit Diagnoses Not on filedocumented in this encounter"
--- OUTSIDE RECORDS SUMMARY | ~2019-12-22 | XMS | Encounter Summary ---
Demographics + + + | Address | [address] | | | [place] [address] | + + + | Home Phone [...] Team Providers + +------+ + | Care Motor Vehicle Technician Name | Role | Phone | + +------+ + | Sydney Lennon | PCP | | + +------+ + Encounter Details +--------+ + + + + | Date | Type | Department | Care Team | Description | +--------+ + + + + | 11/23/ | Preadmit | [facility] | Salvador Jose MD | Pre-op testing | | 2020 | Visit | CENTER [facility]READ[facility] | [address] | (Primary Dx) | | | | CLINIC [address] | [address] | | | | | [address] [place], [place] | [place] [address] | | | | | [address] | [phone] | | | | | [phone] | | | +--------+ + + + [...] for the 11/24/19 encounter (Preadmit Visit) with [facility] ROOM 3 Medication Sig Instructions acetaminophen (TYLENOL) 325 mg tablet Take 650 mg by mouth every 4 hours as needed for Pain. TAKE day of procedure, if needed amLODIPine (NORVASC) 10 MG tablet Take 10 mg by mouth daily. TAKE day of procedure aspirin 81 MG tablet Take 81 mg by mouth daily. TAKE day of procedure Aspirin Buf,ShIgvt-FbDbks-SdI, 81 MG TABS Take 81 mg by [...] | | | | TOY [address] [facility] | | | | | | [place] [address] | | | | | | [phone] | | | | | | | | +--------+ + + + + | 03/13/ | Office | Neurology | Veronica, | | | 2019 | Visit | | [address] | | | | | | [address]TH [facility], | | | | | | [place] [address] | | | | | | [phone] | | | | | | | [...] | [facility] | | | Screen | [facility];[address] | | LABORATORY | | | | [address];[place] [address] | | | | + + + + + + + + | Specimen | + + | Blood | + + + + + + + | Performing | Address | City/State/Zipcode | Phone Number | | Organization | | | | + + + + + | [facility] | [address] | [place] [address] | [phone] | + + + + + Basic [...] | | | | | performed at [facility];[address] | | | | | | [address];[place] | | | | | | [address] | | | | + + + + + + + + | Specimen | + + | Blood | + + + + + + + | Performing | Address | City/State/Zipcode | Phone Number | | Organization | | | | + + + + + | [facility] | [address] | [place] [address] | [phone] | + + + + + CBC [...] LABORATORY | | | | performed at [facility];[address] | | | | | | [address];[place] | | | | | | [address] | | | | + + + + + + + + | Specimen | + + | Blood | + + + + + + + | Performing | Address | City/State/Zipcode | Phone Number | | Organization | | | | + + + + + | [facility] | [address] | [place] [address] | [phone] | + + + + + documented in this encounter Visit Diagnoses + + | Diagnosis | + + | Pre-op testing - Primary Preoperative examination, unspecified | + + documented in this encounter
--- OUTSIDE RECORDS SUMMARY | ~2019-12-22 | XMS | Encounter Summary ---
Demographics + + + | Address | [address] | | | [place] [address] | + + + | Home Phone [...] Team Providers + +------+ + | Care Solar Technician Name | Role | Phone | [...] + + | 12/19/ | Telephone | [facility] | Salvador Jose MD | Imaging (question ) | | 2020 | | VASCULAR SURGERY | [address] | | | | | [address] | [address] | | | | | E [place], [place] | [place] [address] | | | | | [address] | [phone] | | | | | [phone] | | | +--------+ + + + [...] transfer the call to a brandon jane chemical tank worker was caller made aware that if [...] [place] | | | | | | [place] [address] | | | | | | [phone] | | | | | | | | +--------+ + + + + | 03/13/ | Office | Neurology | Veronica, | | | 2020 | Visit | | [address] | | | | | | [address] [place], | | | | | | [place] [address] | | | | | | [phone] | | | | | | | | +--------+ + + + + documented as of this encounter Visit Diagnoses Not on filedocumented in this encounter"
--- OUTSIDE RECORDS SUMMARY | ~2019-12-22 | XMS | Encounter Summary ---
Demographics + + + | Address | [address] | | | [place] [address] | + + + | Home Phone [...] Team Providers + +------+ + | Care Strip Presser Name | Role | Phone | [...] [place] | | | | | | [address] | | | | | | [phone] | | | +--------+ + + + [...] | | | | | | [address] | | | | | | [place] [address] | | | | | | [phone] | | | | | | | | +--------+ + + + + | 03/13/ | Office | Neurology | Veronica, | | | 2019 | Visit | | [address] | | | | | | [address] [place], | | | | | | [place] [address] | | | | | | [phone] | | | | | | | | +--------+ + + + + documented as of this encounter Visit Diagnoses Not on filedocumented in this encounter"
--- OUTSIDE RECORDS SUMMARY | ~2019-12-22 | XMS | Encounter Summary ---
Demographics + + + | Address | [address] | | | [place] [address] | + + + | Home Phone [...] Providers + +------+ + | Care Medical Laboratory Technical Officer Name | Role | Phone | [...] + + | 12/12/ | Office | [facility] | Salvador Jose MD | Carotid stenosis, | | 2019 | Visit | VASCULAR SURGERY | [address] | symptomatic, with | | | | [address] | [address] | infarction (HCC) | | | | E [place], [place] | [place] [address] | (Primary Dx) | | | | [address] | [phone] | | | | | [phone] | | | +--------+---------+ + + + [...] Salvador Jose MD - 12/13/2019 10:30 AM [facility] [address] [place] [address] Office: [phone] DATE OF VISIT: 12/13/19 PATIENT NAME: Buck Bell : 1945; AGE: 74 y.o.; Sex:M PHONE NUMBER: ; ; ; PHYSICIAN: Salvador Jose MD PRIMARY CARE / REFERRING PHYSICIAN: No ref. 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 Hisdiagnosis and prognosiswas reviewed withVeronica Jimenez, nurse practiti nerissa and correctional counselor/case manager at [facility]. Given his recurrent dizzines [...] Patient understands and is agreeable. Dictation software, [employer], used which may contain error for similar [...] | | | | | TOY [address] [facility] | | | | | | [place] [address] | | | | | | [phone] | | | | | | | | +--------+ + + + + | 03/13/ | Office | Neurology | eVronica, | | | 2019 | Visit | | [address] | | | | | | [address] [place], | | | | | | [place] [address] | | | | | | [phone] | | | | | | | | +--------+ + + + + documented as of this encounter Visit Diagnoses + + | Diagnosis | + + | Carotid stenosis, symptomatic, with infarction (HCC) - Primary Occlusion and stenosis | | of carotid artery with cerebral infarction | + + documented in this encounter
--- OUTSIDE RECORDS SUMMARY | ~2019-12-22 | XMS | Encounter Summary ---
Demographics + + + | Address | [address] | | | [place] [address] | + + + | Home Phone | | + + + | Preferred Language | Unknown | + + + | Marital Status | Single | + + + | Episcopalian Affiliation | Unknown | + + + | Race | or | + + + | Ethnic Group | Not or | + + + Author + + + | Author | [facility] [employer] [facility] | + + + | Organization | [facility] | + + + | Address | Unknown | + + + | Phone | Unavailable | + + + Support + + +---------+ + | Name | Relationship | Address | Phone | + + +---------+ + | Gautam Ray | ECON | Unknown | | + + +---------+ + Care Team Providers + +------+ + | Care Telecommunications Equipment Installer Name | Role | Phone | [...] | 2008 | Visit | Center at [facility] [address] | [address] | [place]inal [place] | | | | [address] | [address] [place], [place] | (Primary Dx) | | | | Mailcode: CH8N | [address] | | | | | [facility] | | | | | | and Healing, | | | | | | Building | | | | | | Floor [place], [place] | | | | | | [address] | | | | | | [phone] | | | +--------+---------+ + + + [...]
--- OUTSIDE RECORDS SUMMARY | ~2019-12-22 | XMS | Encounter Summary ---
Demographics + + + | Address | [address] | | | [place] [address] | + + + | Home Phone [...] + + | Author | [facility] | + + + | Organization | [facility] | + + + | Address | Unknown | + + + | Phone | Unavailable | + + + Support + + +---------+ + | Name | Relationship | Address | Phone | + + +---------+ + | Gautam Ray | ECON | Unknown | | + + +---------+ + Care Team Providers + +------+ + | Care Electrician Constructor Supervisor Name | Role | Phone | [...] | | | | | | Rd [place], | | | | | | | [place] | | | | | | | [address] | | | | | | | Phone: | | | | | | | [phone] | | | | | | | Fax: | | | | | | | [phone] | +--------+--------+ + + + + Encounter Details +--------+---------+ + + + | Date | Type | Department | Care Team | Description | +--------+---------+ + + + | 03/05/ | Office | Orthopaedics | Jaswant Angeles MD | Shoulder Pain; | | 2007 | Visit | [facility] at [place] | [address] | Injury of Axillary | | | | for Health and | [address] | Nerve; Unspecified | | | | Healing [address] | [place], [place] | Disorders of Bursae | | | | Ave [facility] for | [address] | and Tendons in | | | | Health and Healing, | [phone] | Shoulder Region | | | | [facility] | | | | | | Floor [place], [place] | | | | | | [address] | | | | | | [phone] | | | +--------+---------+ + + + [...] | | + +---------+ + + | [facility] DEPARTMENT OF | | | [...]
--- OUTSIDE RECORDS SUMMARY | ~2019-12-22 | XMS | Encounter Summary ---
Demographics + + + | Address | [address] | | | [place] [address] | + + + | Home Phone [...] Team Providers + +------+ + | Care Powder Loader Name | Role | Phone | + [...] | | [address] | [place] [address] | | | | | [place] | [phone] | | | | | [address] | | | | | | [phone] | | | +--------+ + + + [...] to 01/19/14 @ 9 :30. Renita at [facility] is updated at this time: She will send an updated authorization status. elephone Encounter - Milla Brooks - 12/19/2013 1:14 PM [facility] phone call to scheduleElectronically signed by Milla Brooks at 014 1:14 PM PDTTelephone Encounter - Tamie Gonzalez - 12/19/2013 9:08 AM PDTPatient john led back to talk to edna, you can reach him at his work number listed below [phone] signed by Tamie Gonzalez at 12/19/2013 9:09 AM PDTTelephone E tristinunter - Edna Mcdermott - 12/18/2013 11:38 AM PDTLeft Buck a message to reschedule his previously cancelled appointment. Will update Renita once this has been rescheduled. Elect ronically signed by Edna Mcdermott at 12/18/2013 11:38 AM PDTTelephone Encounter - Milla Ashton - 12/14/2013 1:55 PM PDTEsther from [facility] called to schedule patient a F [...] | | | [address] [facility] | | | | | | [place] [address] | | | | | | [phone] | | | | | | | | +--------+ + + + + | 03/13/ | Office | Neurology | Veronica, | | | 2019 | Visit | | [address] | | | | | [address] [place], | | | | | | [place] [address] | | | | | | [phone] | | | | | | | | +--------+ + + + + documented as of this encounter Visit Diagnoses Not on filedocumented in this encounter"
--- OUTSIDE RECORDS SUMMARY | ~2019-12-22 | XMS | Encounter Summary ---
Demographics + + + | Address | [address] | | | [place] [address] | + + + | Home Phone [...] Team Providers + +------+ + | Care Lithographic Proofer Apprentice Name | Role | Phone | + +------+ + PCP | Unavailable | + +------+ + Encounter Details +--------+ + + + + | Date | Type | Department | Care Team | Description | +--------+ + + + + | 05/16/ | Hospital | [facility] | Conversion | DDD (degenerative | | 2012 | Encounter | [facility] MRI | Transaction, | disc disease); | | | | [address] | Provider Unknown | Neuralgia; Arterial | | | | [place] | [phone] | ischemic stroke, | | | | [address] | | MCA, left, presumed | | | | [phone] | | (HCC); | | | | [...] | | | | | | [address] | | | | | | [place] [address] | | | | | | [phone] | | | | | | | | +--------+ + + + + | 03/13/ | Office | Neurology | Veronica, | | | 2019 | Visit | | [address] | | | | | [address] [place], | | | | | | [place] [address] | | | | | | [phone] | | | | | | | [...] PDT ISA OSMAN1945MRI BRAIN WO | | XGTSQREM06/31/2013 2:28 PM HISTORY: Underlying history of previous [...]
--- OUTSIDE RECORDS SUMMARY | ~2019-12-22 | XMS | Encounter Summary ---
Demographics + + + | Address | [address] | | | [place] [address] | + + + | Home Phone [...] Organization | [facility] [...] Team Providers + +------+ + | Care Garbage Depot Worker Name | Role | Phone | [...] | 07/26/ | Hospital | [facility] | Wes Melvin MD | Other myelopathy | | 2014 | Encounter | MED CTR XRAY [address] | ([facility]) | | | | [place] | [place] [address] | | | | | [place] [address] | [phone] | | | | | [phone] | | | +--------+ + + + [...] | | | | | | [place] | | | | | | [place] [address] | | | | | | [phone] | | | | | | | | +--------+ + + + + | 03/13/ | Office | Neurology | Veronica, | | | 2019 | Visit | | [address] | | | | | | [address] [facility] [place], | | | | | | [place] [address] | | | | | | [phone] | | | | | | | [...] | e | 1:42 PM | ([facility]) | procedure are in the | | [...] Radiologist interpretation, please see Chart Review. | [facility] | | | [facility] | | | [facility] | | | - IMAGING | + + + + + + + + | Performing | Address | City/State/Zipcode | Phone Number | | Organization | | | | + + + + + | [address] | [address] | [place] | [phone] | | [facility] | | [address] | | | - IMAGING | | | | + + + + + documented in this encounter Visit Diagnoses + + | Diagnosis | + + | Other myelopathy | + + documented in this encounter"
--- OUTSIDE RECORDS SUMMARY | ~2019-12-22 | XMS | Encounter Summary ---
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
--- OUTSIDE RECORDS SUMMARY | ~2019-12-22 | XMS | Encounter Summary ---
Demographics + + + | Address | [address] | | | [place] [address] | + + + | Home Phone [...] + + + | Author | [facility] | | | and [place] | + + + | Organization | [facility] | | | [...] Providers + +------+ + | Care Dish Washer Name | Role | Phone | + [...] + + | 07/26/ | Hospital | [facility] | Wes Weber MD | | | 2015 - | Encounter | MED CTR SURGICAL | [address] | | | | | [address] | [place] [address] | | | 07/27/ | | [place] [address] | [phone] | | | 2014 | | [phone] | | | +--------+ + + + [...] the original. [facility] NEUROSURGERY DISCHARGE SUMMARY Patient Name: Buck [...] Care Everywhere.CERVICAL FUSION , DISCHARGE INSTRUCTIONS FOR (SCOTTISH)documented in this encounter Medications at Time of [...] Wes Weber MD - 07/26/2014 9:45 AM PDTFormerly [facility] H[facility] AND [...] signed by: Wes Weber MD [facility]/26[facility]2014 9[facility], GINO Benson - 07/11/2014 9:18 AM PST GINO Ponce [address] [place] [address], [address] [place] [address] FAX: NEUROSURGERY HISTORY AND PHYSICAL EXAMINATION CHIEF [...] has no apparent deficits with short or refrigeration repair supervisor memory. CRANIAL NERVES: II: Acuity is intact. [...] Intrinsics 5 4 Ulnar Intrinsics 5 4 Hamper Maker Machine Strength 5 4 Hip Flexion 4 4 [...] rolled OOB with no (A). Donns "B" [place] collar but needs help to tighten [...] prior to discha rge for ed. On [place] collar and precautions. Planned Interventions:Planned Therapy Interventions: ADL retraining, orthotic fitting/train ing, transfer training Patient Status/Goals Reflects last filed data of patient status; may be from multiple contributors. Basic ADLs Instrumental ADLs Activity Tolerance Cognitive Linguistics Cognitive Tests Bed Mobility Bed Mobility Skill: Rolling/Turning, PT Eval Level Of [place]: independent Bed Mobility Skill: Sit To Supine, Rehab Eval Level Of [place]: Sit/Supine: independent Bed Mobility Skill: Supine To Sit, Rehab Eval Level Of [place]: Supine/Sit: independent Transfers Transfer Skill: Bed To Chair/Chair To Bed, Rehab Eval Type of Transfer: step pivot Level Of [place]: Bed To Chair: modified independent Physical Assist/Nonphysical Assist: Bed To Chair: (.) Assistive Device: 2 wheeled walker Goal Transfers Bed to Chair/Chair to Bed Bed to Chair/Chair to Bed STG Status: Met STG Transfers Bed to Chair/Chair to Bed: modified independent Transfer Skill: Sit To Stand, Rehab Eval Level Of [place]: Sit/Stand: modified independent Physical Assist/Nonphysical Assist: Sit/Stand: (.) Assistive Device For Transfer: Sit/Stand: 2 wheeled walker Goal Transfers Sit to Stand Sit to Stand STG Status: Met STG Transfers Sit to Stand : modified independent Transfer Skill: Stand To Sit, Rehab Eval Level Of [place]: Stand/Sit: modified independent Physical Assist/Nonphysical Assist: Stand/Sit: [...] Summary & Review . Outcome: Progressing This insurance case manager visited with this patient who had [...] Mobility Skill: Rolling/Turning, PT Eval Level Of [place]: independent Bed Mobility Skill: Sit To Supine, Rehab Eval Level Of [place]: Sit/Supine: independent Bed Mobility Skill: Supine To Sit, Rehab Eval Level Of [place]: Supine/Sit: independent Transfers Transfer Skill: Bed To Chair/Chair To Bed, Rehab Eval Type of Transfer: step pivot Level Of [place]: Bed To Chair: modified independent Physical Assist/Nonphysical Assist: Bed To Chair: (.) Assistive Device: 2 wheeled walker Goal Transfers Bed to Chair/Chair to Bed Bed to Chair/Chair to Bed STG Status: Met STG Transfers Bed to Chair/Chair to Bed: modified independent Transfer Skill: Sit To Stand, Rehab Eval Level Of [place]: Sit/Stand: modified independent Physical Assist/Nonphysical Assist: Sit/Stand: (.) Assistive Device For Transfer: Sit/Stand: 2 wheeled walker Goal Transfers Sit to Stand Sit to Stand STG Status: Met STG Transfers Sit to Stand : modified independent Transfer Skill: Stand To Sit, Rehab Eval Level Of [place]: Stand/Sit: modified independent Physical Assist/Nonphysical Assist: Stand/Sit: (.) Assistive Device For Transfer: Stand/Sit: 2 wheeled walker Goal Transfers Stand to Sit Stand to Sit STG Status: Met STG Transfers Stand to Sit: modified independent Transfer Safety Analysis, Rehab Eval Transfer Safety Concerns Noted: decreased balance during turns, decreased proprioception Impaired Transfers: impaired balance Gait Gait Skills, PT Eval Level Of [place]: Gait: modified independent Physical Assist/Nonphysical Assist: Gait: (.) Assistive Device For Transfer: Gait: 2 wheeled walker Gait Distance: 300 feet Goal Gait Gait STG Status: Met STG Gait: modified independent STG Gait Device: 2 wheeled walker STG Gait Distance: 300 feet Stairs Stair, Performance Number Of Stairs: 4 Stair Railings: present on both sides Level Of [place]: modified independent Physical Assist/Nonphysical Assist: verbal cues [...] amts of drainage. lan of Lan Reed, AUTO DAMAGE ADJUSTER - 07/27/2014 4:29 AM PDTThe patient is [...] Mobility Skill: Rolling/Turning, PT Eval Level Of [place]: did not occur today Bed Mobility Skill: Sit To Supine, Rehab Eval Level Of [place]: Sit/Supine: did not occur today Bed Mobility Skill: Supine To Sit, Rehab Eval Level Of [place]: Supine/Sit: did not occur today Transfers Transfer Skill: Bed To Chair/Chair To Bed, Rehab Eval Type of Transfer: step pivot Level Of [place]: Bed To Chair: supervision/set-up Physical Assist/Nonphysical Assist: Bed To Chair: verbal cues, 1 person assist Assistive Device: 2 wheeled walker Goal Transfers Bed to Chair/Chair to Bed Bed to Chair/Chair to Bed STG Status: New STG Transfers Bed to Chair/Chair to Bed: modified independent Transfer Skill: Sit To Stand, Rehab Eval Level Of [place]: Sit/Stand: supervision/set-up Physical Assist/Nonphysical Assist: Sit/Stand: verbal cues Assistive Device For Transfer: Sit/Stand: 2 wheeled walker Goal Transfers Sit to Stand Sit to Stand STG Status: New STG Transfers Sit to Stand : modified independent Transfer Skill: Stand To Sit, Rehab Eval Level Of [place]: Stand/Sit: supervision/set-up Physical Assist/Nonphysical Assist: Stand/Sit: verbal cues Assistive Device For Transfer: Stand/Sit: 2 wheeled walker Goal Transfers Stand to Sit Stand to Sit STG Status: New STG Transfers Stand to Sit: modified independent Transfer Safety Analysis, Rehab Eval Transfer Safety Concerns Noted: decreased balance during turns, decreased proprioception Impaired Transfers: impaired balance Gait Gait Skills, PT Eval Level Of [place]: Gait: supervision/set-up Physical Assist/Nonphysical Assist: Gait: verbal cues Assistive Device For Transfer: Gait: 2 wheeled walker Gait Distance: 300 feet Goal Gait Gait STG Status: New STG Gait: modified independent STG Gait Device: 2 wheeled walker STG Gait Distance: 300 feet Stairs Stair, Performance Number Of Stairs: 4 Stair Railings: present on both sides Level Of [place]: supervision/set-up Physical Assist/Nonphysical Assist: verbal cues Assistive [...] 19:03 lan of Care - John Corona, AUTO DAMAGE ADJUSTER - 07/26/2014 5:44 PM PDTFormatting of this [...] thin liquids by straw with no difficulty. SOCIETY REPORTER provided education about swallowing post o p. [...] recommendation: no further Speech Therapy Planned Interventions: SOCIETY REPORTER Diagnosis: Odynophagia but swallow WNL At bedside, [...] Swallow: Patient will complete swallow evaluation with SOCIETY REPORTER s/p ACS Electronically signed by: Donita Taylor SPEECH PATHO, 07/26/2014 17:17 Start Time: 1640 Stop time: 1703 Duration: 23 minutes 5:1 7 PM PDTOp Note - Wes Weber MD - 07/26/2014 2:02 PM PDT Operative Note Buck Bell 69 y.o. male 1945 [id number] Proc. Date 07/26/2014 Preop Dx Cervical spondylosis with myelopathy Cervical stenosis Cervical degenerative disc disease Cervical foraminal stenosis Cervical kyphosis Cervical radiculopathy Postop Dx same Procedure 1. Anterior cervical discectomy and fusion C3-4, C4-5, C5-6, and C6-7 2. Anterior cervical plating C3-7 using [place] [employer] 3. Anterior structural allograft bone C3-4, C4-5, C5-6, and C6-7 4. Microsurgical technique with use of operating microscope Anesthesia General, Dr. Calix Surgeon Surgeon(s) and Role: * Wes Weber MD - Primary Alterations Supervisor Daniel Bonilla EBL 264 Findings C3-C7 severe [...] allograft prior to insertion was filled with [place] bone. The structural allograft bone was then tamped into place at C3-4, C4-5, C5-6, and C6-7. Anterior cervical plating was then performed by holding a 80 mm [place] [employer] plat e in place over the segments with holding pins. Fluoroscopy was used to confirm its appropr iate positioning and then submersible pilot holes were made in the C3-C7 [...] room in stable condition. Electronically signed by: Wse Weber MD 07/26/2014 14:00 [facility] rief Op Note - Chris Weber MD - 07/26/2014 2:00 PM PDTFormatting of this note might be different from the origin al. Brief Operative Note Buck Bell 69 y.o. male 1945 [id number] Proc. Date 07/26/2014 Preop Dx Cervical spondylosis with myelopathy Cervical stenosis Cervical degenerative disc disease Cervical foraminal stenosis Cervical kyphosis Cervical radiculopathy Postop Dx same Procedure 1. Anterior cervical discectomy and fusion C3-4, C4-5, C5-6, and C6-7 2. Anterior cervical plating C3-7 using [place] [employer] 3. Anterior structural allograft bone C3-4, C4-5, C5-6, and C6-7 4. Microsurgical technique with use of operating microscope Anesthesia General, Dr. Calix Surgeon Surgeon(s) and Role: * Wes Weber MD - Primary Alterations Supervisor Daniel Bonilla EBL 264 Findings C3-C7 severe DDD with large anterior and posterior osteophytes. Complications none Specimens * No specimens in log * Drains Drain/Device Site 07/26/14 1326 #1 Right: cervical spine collapsible closed device (Act alejandro) Insertion Site Appearance clean and dry 07/26/2014 13:54 Drainage Characteristics/Odor serosanguineous 07/26/2014 13:54 Drainage Amount scant 07/26/2014 13:54 Electronically signed by: Wes Weber MD 07/26/2014 14:00 [facility] documented in this encou nter Plan [...] | | | | | [facility] [facility] | | | | | | [place] [address] | | | | | | [phone] | | | | | | | | +--------+ + + + + | 03/13/ | Office | Neurology | Veronica, | | | 2019 | Visit | | [address] | | | | | | [address] [facility], | | | | | | [place] [address] | | | | | | [phone] | | | | | | | [...] | | | | | | use Premier 10/ if ordered. If | | | [...]
--- OUTSIDE RECORDS SUMMARY | ~2019-12-22 | XMS | Encounter Summary ---
Demographics + + + | Address | [address] | | | [place] [address] | + + + | Home Phone [...] Team Providers + +------+ + | Care Stockbroking Dealer Name | Role | Phone | + [...] | MD [address] | [address] | | | | | spondylosis | [address] | [place], | | | | | with | [facility], | [place] | | | | | myelopathy | [place] [address] | [address] | | | | | Cervical | Phone: | Phone: | | | | | cord | [phone] | [phone] | | | | | myelomalacia | Fax: | Fax: | | | | | (HCC) | [phone] | [phone] | | | | | Degenerative | [...] | spondylosis | [address] | [place], | | | | | with | [place], | [place] | | | | | myelopathy | [place] [address] | [address] | | | | | Cervical | Phone: | Phone: | | | | | cord | [phone] | [phone] | | | | | myelomalacia | Fax: | Fax: | | | | | ([facility]) | [phone] | [phone] | | | | | Degenerative | [...] + + | 01/30/ | Hospital | [facility] | Wes Melvin MD | Cervical spondylosis | | 2013 | Encounter | MED CTR MRI [address] | [address] | with myelopathy; | | | | [address] [place], | [place] [address] | Cervical cord | | | | [place] [address] | [phone] | myelomalacia (HCC); | | | | [phone] | | Degenerative disc | | | [...] encounter Miscellaneous Notes Miscellaneous - ZEYNEP HAWKINS [facility] - 02/14/2014 12:00 AM PDT documented in [...] | | | | | [address] [facility] | | | | | | [place] [address] | | | | | | [phone] | | | | | | | | +--------+ + + + + | 03/13/ | Office | Neurology | Veronica, | | | 2019 | Visit | | Angie, CALCINE FURNACE LOADER [address] | | | | | | [address] [facility], | | | | | | [place] [address] | | | | | | [phone] | | | | | | | [...] | in the cervical cord at the [id number].2. Multilevel degenerative disc and spondylitic | | [...] + | MISCELLANEOUS LAB | | | [phone] | + +---------+ + + | MISCELANIOUS LAB | | | [phone] | + +---------+ + + documented in this encounter Visit Diagnoses + + | Diagnosis | + + | Cervical spondylosis with myelopathy | + + | Cervical cord myelomalacia (HCC) Other myelopathy | + + | Degenerative disc disease, cervical Degeneration of cervical intervertebral disc | + + documented in this encounter"
--- OUTSIDE RECORDS SUMMARY | ~2019-12-22 | XMS | Encounter Summary ---
Demographics + + + | Address | [address] | | | [place] [address] | + + + | Home Phone [...] Organization | [facility] [...] Team Providers + +------+ + | Care Trolley Car Operator Name | Role | Phone | [...] + + | 12/14/ | Telephone | [facility] | Yazmin Jesus, | Follow-up | | 2020 | | VASCULAR SURGERY | RN | | | | | [address] | | | | | | [place] | | | | | | [address] | | | | | | [phone] | | | +--------+ + + + [...] buttock. De sitin ointment also called into [facility] for left buttock early pressure ulcer. Mason [...] | | | | | | [place] | | | | | | [place] [address] | | | | | | [phone] | | | | | | | | +--------+ + + + + | 03/13/ | Office | Neurology | Veronica, | | | 2019 | Visit | | [address] | | | | | | [address] [place], | | | | | | [place] [address] | | | | | | [phone] | | | | | | | | +--------+ + + + + documented as of this encounter Visit Diagnoses Not on filedocumented in this encounter"
--- OUTSIDE RECORDS SUMMARY | ~2019-12-22 | XMS | Encounter Summary ---
Demographics + + + | Address | [address] | | | [place] [address] | + + + | Home Phone [...] Team Providers + +------+ + | Care Shackler Name | Role | Phone | + [...] | | | | MRI Lumbar | [facility], | [place] | | | | | Spine wo | [place] [address] | [address] | | | | | Contrast | Phone: | Phone: | | | | | | [phone] | [phone] | | | | | | Fax: | Fax: | | | | | | [phone] | [phone] | +--------+--------+ + + + + Diagnostic/Screening [...] | | | | | with | [place], | [place] | | | | | myelopathy | [place] [address] | [address] | | | | | Cervical | Phone: | Phone: | | | | | cord | [phone] | [phone] | | | | | myelomalacia | Fax: | Fax: | | | | | [facility]) | [phone] | [phone] | | | | | Degenerative | [...] | | | | | cervical | [place], | [place], [place] | | | | | region | [place] | [address] | | | | | Cervical | [address] | Phone: | | | | | nerve root | Phone: | [phone] | | | | | impingement | [phone] | Fax: | | | | | SPINAL | Fax: | [phone] | | | | | STENOSIS C4, | [phone] | | | | | | WITH NERVE | | | | | | | IMPINGEMENT | | | | | | | OF C3-C6 | | | | | | | Procedures | | | | | | | [place] OFFICE | | | | | | [...] | | [address] | [place] [address] | (Primary Dx); | | | | [place] | [phone] | Cervical cord | | | | [address] | | myelomalacia ([facility]); | | | | [phone] | | Degenerative disc | | | [...] research this procedure more by going to: [email or web address] Click the Treatment Options link on the left column. Then, look for Anterior Cervical Discectomy and Fusion (ACDF). documented in this encounter Progress Notes Wes Melvin MD - 01/19/2014 9:08 AM PDTFormatting of this note might be different from t he original. Wes Melvin MD [address] [place] [address], [address] [place] [address] FAX: NEUROSURGERY HISTORY AND PHYSICAL EXAMINATION CHIEF [...] has no apparent deficits with short or correction memory. CRANIAL NERVES: II: Acuity is intact. [...] Intrinsics 5 4 Ulnar Intrinsics 5 4 Pre Press Proofer Strength 5 4 Hip Flexion 4 4 [...] nter Miscellaneous Notes Miscellaneous - ONBASE SCAN [facility] - 01/28/2014 12:00 AM PDT iscellaneous - ONBASE SCAN [facility] - 01/19/2014 12:00 AM PDTEle ctronically [...] | | | | | [address] [facility] | | | | | | [place] [address] | | | | | | [phone] | | | | | | | | +--------+ + + + + | 03/13/ | Office | Neurology | Veronica, | | | 2020 | Visit | | Angie, BOILERMAKER MECHANIC [address] | | | | | | [address] [facility], | | | | | | [place] [address] | | | | | | [phone] | | | | | | | [...] + | Performing | Address | City/State/Unm Hospitalcode | Phone Number | | Organization | | | | + +---------+ + + | MISCELLANEOUS LAB | | | [phone] | + +---------+ + + | MISCELANIOUS LAB | | | [phone] | + +---------+ + + MRI Cervical [...] | in the cervical cord at the [id number]. Multilevel degenerative disc and spondylitic | | changes. These are most severeat C4-C5 where severe central canal stenosis and bilateral | | severe foraminalnarrowing are present. Severe foraminal narrowing on the left at C5-C6 | | andbilaterally at C6-C7. Overall appearances are stable when compared to prior.Dictated | | and Signed by: Yash Esteabn MD Electronically signed: 01/31/2014 9:28 AM | [...] + | MISCELLANEOUS LAB | | | [phone] | + +---------+ + + | MISCELANIOUS LAB | | | [phone] | + +---------+ + + documented in [...]
--- OUTSIDE RECORDS SUMMARY | ~2019-12-22 | XMS | Encounter Summary ---
Demographics + + + | Address | [address] | | | [place] [address] | + + + | Home Phone [...] Team Providers + +------+ + | Care Tutor Name | Role | Phone | + +------+ + | Dominic Carlin MD | PCP | | + +------+ + Encounter Details +--------+ + + + + | Date | Type | Department | Care Team | Description | +--------+ + + + + | 09/11/ | Hospital | [facility] | Conversion | Pain | | 2016 | Encounter | CONVERSION DEP [address] | Transaction, | | | | | [address] | Provider Unknown | | | | | [place] | [phone] | | | | | [address] | | | | | | [phone] | | | +--------+ + + + [...] | | | | | [address] [facility] [place] | | | | | | [place] [address] | | | | | | [phone] | | | | | | | | +--------+ + + + + | 03/13/ | Office | Neurology | Veronica, | | | 2019 | Visit | | [address] | | | | | | [address] [facility], | | | | | | [place] [address] | | | | | | [phone] | | | | | | | [...]
--- OUTSIDE RECORDS SUMMARY | ~2019-12-22 | XMS | Encounter Summary ---
Demographics + + + | Address | [address] | | | [place] [address] | + + + | Home Phone [...] +------+ + | Care Co Founder And Chief Strategy Officer Name | Role | Phone | [...] | | [address] | [place] [address] | | | | | [place] [address] | | | | | | [phone] | | | +--------+ + + + [...] [place] | | | | | | [place] [address] | | | | | | [phone] | | | | | | | | +--------+ + + + + | 03/13/ | Office | Neurology | Veronica, | | | 2019 | Visit | | [address] | | | | | | [address] [facility] [place], | | | | | | [place] [address] | | | | | | [phone] | | | | | | | [...]
--- OUTSIDE RECORDS SUMMARY | ~2019-12-22 | XMS | Encounter Summary ---
Demographics + + + | Address | [address] | | | [place] [address] | + + + | Home Phone [...] Providers + +------+ + | Care Hospital Pharmacy Director Name | Role | Phone | [...] | | [address] | [place] [address] | pain | | | | [place], [place] | [phone] | | | | | [address] | | | | | | [phone] | | | +--------+ + + + [...] | | | | [address] | | | | | | [place] [address] | | | | | | [phone] | | | | | | | | +--------+ + + + + | 03/13/ | Office | Neurology | Veronica, | | | 2019 | Visit | | [address] | | | | | [address] [place], | | | | | | [place] [address] | | | | | | [phone] | | | | | | | [...] COMPARISON: CERVICAL MRI MAY 16, 2013 FROM [facility] | LAB | | [facility] FINDINGS: An AP view and lateral [...] PAINCOMPARISON: CERVICAL MRI MAY 16, 2013 FROM [facility] | | MEDICAL CENTERFINDINGS: An [...] + | MISCELLANEOUS LAB | | | [phone] | + +---------+ + + | MISCELANIOUS LAB | | | [phone] | + +---------+ + + documented in this encounter Visit Diagnoses + + | Diagnosis | + + | Spinal stenosis - Primary Spinal stenosis, unspecified region other than cervical | + + | Neck pain Cervicalgia | + + documented in this encounter"
--- OUTSIDE RECORDS SUMMARY | ~2019-12-22 | XMS | Encounter Summary ---
Demographics + + + | Address | [address] | | | [place] [address] | + + + | Home Phone | | + + + | Preferred Language | Unknown | + + + | Marital Status | Single | + + + | Taoist Affiliation | Unknown | + + + | Race | or | + + + | Ethnic Group | Not or | + + + Author + + + | Author | [facility] | + + + | Organization | [facility] | + + + | Address | Unknown | + + + | Phone | Unavailable | + + + Support + + +---------+ + | Name | Relationship | Address | Phone | + + +---------+ + | Gautam Ray | ECON | Unknown | | + + +---------+ + Care Team Providers + +------+ + | Care Lock Master Name | Role | Phone | [...] | | | | | | [address] [place], | | | | | | | [place] | | | | | | | [address] | | | | | | | Phone: | | | | | | | [phone] | | | | | | | Fax: | | | | | | | [phone] | +--------+--------+ + + + + Encounter [...] | | | for Health and | [facility] [address] | and Tendons in | | | | Healing [address] | [place], [place] | Shoulder Region; | | | | [facility] | [address] | Radicular Syndrome | | | | Health and Healing, | [phone] | of [place] | | | | [facility] | | | | | | Floor [place], [place] | | | | | | [address] | | | | | | [phone] | | | +--------+---------+ + + + [...]
--- OUTSIDE RECORDS SUMMARY | ~2019-12-22 | XMS | Encounter Summary ---
Demographics + + + | Address | [address] | | | [place] [address] | + + + | Home Phone [...] Team Providers + +------+ + | Care Fox Raiser Name | Role | Phone | [...] | | [address] | [place] [address] | (Primary Dx); | | | | [place] | [phone] | Cervical spondylosis | | | | [address] | | with myelopathy; | | | | [phone] | | Essential | | | | [...] | | | | | | [place] [address] | | | | | | [phone] | | | | | | | | +--------+ + + + + | 03/13/ | Office | Neurology | Veronica, | | | 2019 | Visit | | [address] | | | | | | [facility], | | | | | | [place] [address] | | | | | | [phone] | | | | | | | [...] + | [facility] | [address] | [place] | [phone] | | [facility] | | [address] | | | - IMAGING | | [...] + | [facility] | [address] | [place], [place] | [phone] | | [facility] | | [address] | | | - LABORATORY | | | | + + + + + | [facility] | [address] | [place] | | | [facility] | | [address] | | | - LABORATORY | | [...] | 0.77 | 0.60 - 1.30 | [facility] | | | | | mg/dL | [facility] | | | | | | MEDICAL | | | | | | CENTER - | | | | | | LABORATORY | | + + + + + + | eGFR, | >60Comment: GLOMERULAR | >=60 | [facility] | | | non- | FILTRATION | mL/min/1.73m2 | [facility] | | | [place] | RATE,ESTIMATED | | MEDICAL | | | | mL/min/1.39v7Jahv than | | CENTER - | | [...] | 8.8 | 8.3 - 10.5 | [facility] | | | | | mg/dL | [facility] | | | | | [...] [address] | [place] | [phone] | | [facility] | | [address] | | | - LABORATORY | | | | + + + + + | [facility] | [address] | [place] | | | [facility] | | [address], [facility] | | | - LABORATORY [...]
--- OUTSIDE RECORDS SUMMARY | ~2019-12-22 | XMS | Encounter Summary ---
Demographics + + + | Address | [address] | | | [place] [address] | + + + | Home Phone [...] Team Providers + +------+ + | Care Otr Truck Driver Name | Role | Phone [...] | | [address] | [place] [address] | | | | | [place] | [phone] | | | | | [address] | | | | | | [phone] | | | +--------+ + + + [...] to 01/19/14 @ 9 :30. Renita at [facility] is updated at this time: She will send an updated authorization status. elephone Encounter - Milla Brooks - 12/19/2013 1:14 PM [facility] phone call to scheduleElectronically signed by Milla Brooks at 014 1:14 PM PDTTelephone Encounter - Tamie Gonzalez - 12/19/2013 9:08 AM PDTPatient john led back to talk to edna, you can reach him at his work number listed below [phone] signed by Tamie Gonzalez at 12/19/2013 9:09 AM PDTTelephone E tristinunter - Edna Mcdermott - 12/18/2013 11:38 AM PDTLeft Buck a message to reschedule his previously cancelled appointment. Will update Renita once this has been rescheduled. Elect ronically signed by Edna Mcdermott at 12/18/2013 11:38 AM PDTTelephone Encounter - Milla Ashton - 12/14/2013 1:55 PM PDTEsther from [facility] called to schedule patient a F [...] HOSPITAL | | | | | | [place] [address] | | | | | | [phone] | | | | | | | | +--------+ + + + + | 03/13/ | Office | Neurology | Veronica, | | | 2019 | Visit | | [address] | | | | | | [address] [place], | | | | | | [place] [address] | | | | | | [phone] | | | | | | | | +--------+ + + + + documented as of this encounter Visit Diagnoses Not on filedocumented in this encounter"
--- OUTSIDE RECORDS SUMMARY | ~2019-12-22 | XMS | Encounter Summary ---
Demographics + + + | Address | [address] | | | [place] [address] | + + + | Home Phone [...] + + + | Author | [facility] | + + + | Organization | [facility] | + + + | Address | Unknown | + + + | Phone | Unavailable | + + + Support + + +---------+ + | Name | Relationship | Address | Phone | + + +---------+ + | Gautam Ray | ECON | Unknown | | + + +---------+ + Care Team Providers + +------+ + | Care Oracle Application Consultant Name | Role | Phone | [...] in shoulder | [address] | [place], | | | | | region, | [place], [place] | [place] | | | | | unspecified | [address] | [address] | | | | | Procedures | Phone: | Phone: | | | | | CONSULT TO | [phone] | [phone] | | | | | ORTHOPEDICS | | Fax: | | | | | AND | | [phone] | | | | | REHABILITATI | [...] | | | | | | [place], | | | | | | | [place] | | | | | | | [address] | | | | | | | Phone: | | | | | | | [phone] | | | | | | | Fax: | | | | | | | [phone] | +--------+--------+ + + + + Encounter Details +--------+---------+ + + + | Date | Type | Department | Care Team | Description | +--------+---------+ + + + | 02/08/ | Office | Orthopaedics | Jaswant Angeles MD | Shoulder Pain; | | 2007 | Visit | [facility] [place] | [address] | Unspecified | | | | for Health and | [address] | Disorders of Bursae | | | | Healing [address] | [place], [place] | and Tendons in | | | | [facility] for | [address] | Shoulder Region | | | | Health and Healing, | [phone] | | | | | | | | | | | Floor [place], [place] | | | | | | [address] | | | | | | [phone] | | | +--------+---------+ + + + [...] has underg one physical therapy without significant half-way benefit. He has a history of left [...] | + +---------+ + + | [facility]PART[facility] OF | | | | | [...]
--- OUTSIDE RECORDS SUMMARY | ~2019-12-22 | XMS | Encounter Summary ---
Demographics + + + | Address | [address] | | | [place] [address] | + + + | Home Phone [...] Team Providers + +------+ + | Care Thermoscrew Operator Name | Role | Phone | [...] [place] | | | | | | [address] | | | | | | [phone] | | | +--------+ + + + [...] HOSPITAL | | | | | | [place] [address] | | | | | | [phone] | | | | | | | | +--------+ + + + + | 03/13/ | Office | Neurology | Veronica, | | | 2019 | Visit | | [address] | | | | | | [address] [place], | | | | | | [place] [address] | | | | | | [phone] | | | | | | | | +--------+ + + + + documented as of this encounter Visit Diagnoses Not on filedocumented in this encounter"
--- OUTSIDE RECORDS SUMMARY | ~2019-12-22 | XMS | Encounter Summary ---
Demographics + + + | Address | [address] | | | [place] [address] | + + + | Home Phone | | + + + | Preferred Language | Unknown | + + + | Marital Status | Single | + + + | Buddhism Affiliation | 1041 | + + + | Race | Unknown | + + + | Ethnic Group | Unknown | + + + Author + + + | Author | [facility] | | | and [place] | + + + | Organization | [facility] [...] Team Providers + +------+ + | Care Pantograph Watcher Name | Role | Phone | + [...] | | | | | | | [place] | | | | | | | [...] | | | | | [address] | [place] | | | | | [place] | [address] | | | | | [address] | [phone] | | | | | [phone] | | | +--------+ + + + [...] EVALUATION Buck Bell 69 y.o. male 1945 [id number] Procedure(s) C3-4, C4-5, C5-6, C6-7 Anterior Cervical [...] signed by Jaswant Calix MD 07/26/2014 14:00 [facility] nesthesia Preprocedur e Evaluation - Jaswant Calix MD - 07/26/2014 8:26 AM PDT ANESTHESIA PREANESTHESIA EVALUATION Buck Bell 69 y.o. male 1945 [id number] Procedure(s): C3-4, C4-5, C5-6, C6-7 Anterior Cervical [...] DC | | | | | | [place] [address] | | | | | | [phone] | | | | | | | | +--------+ + + + + | 03/13/ | Office | Neurology | Veronica, | | | 2019 | Visit | | [address] | | | | | | [address] [place], | | | | | | [place] [address] | | | | | | [phone] | | | | | | | [...] | | | | to Incision, Starting [facility] | | | | | | [...]
--- OUTSIDE RECORDS SUMMARY | ~2019-12-22 | XMS | Encounter Summary ---
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 | [address] | [place], [place] | [phone] | | [facility] | | [address] | | | - IMAGING | | [...]
--- OUTSIDE RECORDS SUMMARY | ~2019-12-22 | XMS | Encounter Summary ---
Demographics + + + | Address | [address] | | | [place] [address] | + + + | Home Phone [...] | Organization | [facility] [...] Team Providers + +------+ + | Care Perfumer Name | Role | Phone | + [...] | | | | | cervical | [address] | [address] | | | | | disc | [address] | [place] | | | | | degeneration | [place], | [place], [place] | | | | | , | [place] [address] | [address] Phone: | | | | | unspecified | Phone: | [phone] | | | | | cervical | [phone] | Fax: | | | | | region | Fax: | [phone] | | | | | | [phone] | | +--------+--------+ + + + + [...] | | | DR [place], | [address] | 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 Patient Instructions [facility] Dr. Luan Gamble, Neurologist [...] le, and scrabble, other puzzle games like Yarraa, Pycno. Play computer/mobile applications such as [employer] and Funky Moves Advised referral to vascular surgeon for Right ICA stenosis,>85 %, however, refused at this time Refusing all meds including blood pressure, Plavix, cholesterol lowering agents, or any wor k up Will speak with [facility] or Sofiya acosta for his home status Continue ASA 81 mg daily Use a cane for ambulation Any Questions please call TARIQ Raya or Dr. Gamble at [facility] Dizziness (Vertigo) and Balance [...] wor ld of difference. Date Last Reviewed: 03/17/201619992551-6833 [employer] [place] [address]. All righ ts reserved. This information is [...] about: All medicines you take, including prescription, neef-foz-smotxqz, herbs, and supplements Any other symptoms you [...] back, or jaw pain Date Last Reviewed: 03/17/201719997875-5613 [employer]. [address] [place] [address], [place] [address]. All righ ts reserved. This information is [...] home and work life. Date Last Reviewed: 11/14/201619996255-[address] [employer] [place] [address]. All righ ts reserved. This information is [...] thatoccur and then resolve Date Last Reviewed: 09/14/201619996535-6800 [employer]. [address] [place] [address], [place] [address]. All [facility] ts reserved. This information is not [...] If problems are found, your he [facility] provider will recommend treatment with medicines and/or [...] LL 911 without delay. Date Last Reviewed: 06/17/201719998100-7411 [employer]. [address] [place] [address], [place] [address]. All righ ts reserved. This information is [...] the symptoms first appeared. Date Last Reviewed: 03/17/201719998910-1699 [employer]. [address] [place] [address], [place] [address]. All righ ts reserved. This information is not intended as a substitute for professional medical care. Always follow your healthcare professional's instructions. documented in this encounter Progress Notes Luan Gamble MD - 10/06/2019 9:45 AM PDT Patient: Buck Bell Medical Record: [id number] Date of Services: 10/06/2019 Referring Doctor: Dominic Carlin MD Chief Complaint: CVA History of Present Illness: Mr. Bell was a 74-year-old right-handed male, seen for neurologic evaluation, due to h istory of CVA. Patient is a patient of [facility]. I dis cussed with the patient in great detail his work-up consisting of an MRI of the brain perfor med on 05/22/2019 demonstrating a large infarction involving the right temporal occipital an d inferior parietal region, and left medial temporal occipital lobe. 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 sabrina jenkins in [facility] who also discussed his und erlying [...] with Veronica Jimenez, nurse pra ctitioner and major case detective at [facility] with patient refusal to take medications [...] file Gets together: Not on file Attends rastafarian service: Not on file Active member of [...] Take 81 mg by mouth daily. Aspirin Buf,WsRtty-YiJpwh-PmM, 81 MG TABS Take 81 mg by [...] le, and scrabble, other puzzle games like Yarraa, [employer]. Play computer/mobile applications such as [employer] and [employer] Advised referral to vascular surgeon for Right ICA stenosis,>85 %, however, refused at this time Refusing all meds including blood pressure, Plavix, cholesterol lowering agents, or any wor k up Will speak with [place] or [facility] for his home status Continue ASA 81 mg daily Discussed his case with Veronica Jimenez, major case detective, nurse in [facility] with his diagnosis as mentioned above with [...] call TARIQ Raya or Dr. Gamble at [facility] Luan Gamble MD10/06/201910:17 AM Electronically signed NOTE: Part of this report was transcribed using voice recognition software. Every effort was made to ensure accuracy. However, inadvertent computerize web production assistant errors may be present documented in this [...] | | | | [address] [facility] | | | | | | [place] [address] | | | | | | [phone] | | | | | | | | +--------+ + + + + | 03/13/ | Office | Neurology | Veronica, | | | 2019 | Visit | | [address] | | | | | | [address] [place], | | | | | | [place] [address] | | | | | | [phone] | | | | | | | [...]
--- OUTSIDE RECORDS SUMMARY | ~2019-12-22 | XMS | Encounter Summary ---
Demographics + + + | Address | [address] | | | [place] [address] | + + + | Home Phone | | + + + | Preferred Language | Unknown | + + + | Marital Status | Single | + + + | Catholic Affiliation | 1041 | + + + | Race | Unknown | + + + | Ethnic Group | Unknown | + + + Author + + + | Author | [facility] | | | and [place] | + + + | Organization | [facility] | | [...] | | | | | | | [place] | | | | | | | [...] + + | 07/26/ | Hospital | [facility] | Wes Melvin MD | Other myelopathy | | 2014 | Encounter | MED CTR XRAY [address] | ([facility]) | | | | [place] | [place] [address] | | | | | [place] [address] | [phone] | | | | | [phone] | | | +--------+ + + + [...] [place] | | | | | | [place] [address] | | | | | | [phone] | | | | | | | | +--------+ + + + + | 03/13/ | Office | Neurology | Veronica, | | | 2019 | Visit | | [address] | | | | | | [facility] [place], | | | | | | [place] [address] | | | | | | [phone] | | | | | | | [...] CHARGE | e | 1:42 PM | ([facility]) | procedure are in the | | [...] Chart Review. | [facility] | | | [facility] | | | [facility] | | | - IMAGING | + + + + + + + + | Performing | Address | City/State/Zipcode | Phone Number | | Organization | | | | + + + + + | [facility] [facility] | [address] | [place] | [phone] | | [facility] | | [address] | | | - IMAGING | | | | + + + + + documented in this encounter Visit Diagnoses + + | Diagnosis | + + | Other myelopathy | + + documented in this encounter"
--- OUTSIDE RECORDS SUMMARY | ~2019-12-22 | XMS | Encounter Summary ---
Demographics + + + | Address | [address] | | | [place] [address] | + + + | Home Phone [...] + | Author | [facility] [employer] [facility] | + + + | [...] Team Providers + +------+ + | Care Employee Adviser Name | Role | Phone | [...] [address] | | | | | | [place], [place] | | | | | | [address] | | | +--------+ + + + [...]
--- OUTSIDE RECORDS SUMMARY | ~2019-12-22 | XMS | Encounter Summary ---
Demographics + + + | Address | [address] | | | [place] [address] | + + + | Home Phone [...] Team Providers + +------+ + | Care Dietetic Tech Name | Role | Phone | + +------+ + | Sydney Lennon | PCP | | + +------+ + Encounter Details +--------+ + + + + | Date | Type | Department | Care Team | Description | +--------+ + + + + | 11/23/ | Preadmit | [facility] | Salvador Jose MD | Pre-op testing | | 2020 | Visit | CENTER PREADMIT | [address] | (Primary Dx) | | | | CLINIC [address] | [address] | | | | [address] [place], [place] | [place] [address] | | | | | [address] | [phone] | | | | | [phone] | | | +--------+ + + + [...] for the 11/24/19 encounter (Preadmit Visit) with [facility] ROOM 3 Medication Sig Instructions acetaminophen (TYLENOL) 325 mg tablet Take 650 mg by mouth every 4 hours as needed for Pain. TAKE day of procedure, if needed amLODIPine (NORVASC) 10 MG tablet Take 10 mg by mouth daily. TAKE day of procedure aspirin 81 MG tablet Take 81 mg by mouth daily. TAKE day of procedure Aspirin Buf,YqLlri-VdLfbh-HjV, 81 MG TABS Take 81 mg by [...] | | | | [address] [facility] | | | | | | [place] [address] | | | | | | [phone] | | | | | | | | +--------+ + + + + | 03/13/ | Office | Neurology | Veronica, | | | 2019 | Visit | | [address] | | | | | | [address] [facility], | | | | | | [place] [address] | | | | | | [phone] | | | | | | | [...] | [facility] | | | Screen | [facility];[address] | | LABORATORY | | | | [address];[place] [address] | | | | + + + + + + + + | Specimen | + + | Blood | + + + + + + + | Performing | Address | City/State/Zipcode | Phone Number | | Organization | | | | + + + + + | [facility] | [address] | [place] [address] | [phone] | + + + + + Basic [...] | | | | | performed at [facility];[address] | | | | | | [address];[place] | | | | | | [address] | | | | + + + + + + + + | Specimen | + + | Blood | + + + + + + + | Performing | Address | City/State/Zipcode | Phone Number | | Organization | | | | + + + + + | [facility] | [address] | [place] [address] | [phone] | + + + + + CBC [...] LABORATORY | | | | performed at [facility];[address] | | | | | | [address];[place] | | | | | | [address] | | | | + + + + + + + + | Specimen | + + | Blood | + + + + + + + | Performing | Address | City/State/Zipcode | Phone Number | | Organization | | | | + + + + + | [facility] | [address] | [place] [address] | [phone] | + + + + + documented in this encounter Visit Diagnoses + + | Diagnosis | + + | Pre-op testing - Primary Preoperative examination, unspecified | + + documented in this encounter
--- OUTSIDE RECORDS SUMMARY | ~2019-12-22 | XMS | Encounter Summary ---
Demographics + + + | Address | [address] | | | [place] [address] | + + + | Home Phone [...] | Organization | [facility] [...] Providers + +------+ + | Care Assembler Crimper Name | Role | Phone | + [...] [place] | | | | | | [address] | | | | | | [phone] | | | +--------+ + + + [...] | | | | | | [address] | | | | | | [place] [address] | | | | | | [phone] | | | | | | | | +--------+ + + + + | 03/13/ | Office | Neurology | Veronica, | | | 2019 | Visit | | [address] | | | | | [address] [place], | | | | | | [place] [address] | | | | | | [phone] | | | | | | | | +--------+ + + + + documented as of this encounter Visit Diagnoses Not on filedocumented in this encounter"
--- OUTSIDE RECORDS SUMMARY | ~2019-12-22 | XMS | Encounter Summary ---
Demographics + + + | Address | [address] | | | [place] [address] | + + + | Home Phone [...] Team Providers + +------+ + | Care Intake Nurse Name | Role | Phone | [...] + + | 07/26/ | [facility] | [facility] | Wes Weber MD | C3-4, C4-5, C5-6, | | 2014 | | MED CTR OR INTRA OP | [address] | C6-7 Anterior | | | | [address] | [place] [address] | Cervical Discectomy | | | | [place] | [phone] | Fusion | | | | [address] | | | | | | [phone] | | | +--------+---------+ + + + [...] the original. [facility] NEUROSURGERY DISCHARGE SUMMARY Patient Name: [...] Care Everywhere.CERVICAL FUSION , DISCHARGE INSTRUCTIONS FOR (MALAGASY)documented in this encounter Medications at Time of [...] Wes Weber MD - [facility]26[facility]2014 [facility] AND [...] by: Wes Weber MD 07/26/2014 9:45 [facility] Haroldo Bee PA - 07/11/2014 9:18 AM PST GINO Ponce [address] [facility], [address] [place] [address] FAX: NEUROSURGERY HISTORY AND PHYSICAL EXAMINATION CHIEF [...] has no apparent deficits with short or assistant terminal manager memory. CRANIAL NERVES: II: Acuity is [...] Intrinsics 5 4 Ulnar Intrinsics 5 4 Printer Assistant Strength 5 4 Hip Flexion 4 4 [...] rolled OOB with no (A). Donns "B" [place] collar but needs help to tighten it [...] prior to discha rge for ed. On [place] collar and precautions. Planned Interventions:Planned Therapy Interventions: ADL retraining, orthotic fitting/train ing, transfer training Patient Status/Goals Reflects last filed data of patient status; may be from multiple contributors. Basic ADLs Instrumental ADLs Activity Tolerance Cognitive Linguistics Cognitive Tests Bed Mobility Bed Mobility Skill: Rolling/Turning, PT Eval Level Of [place]: independent Bed Mobility Skill: Sit To Supine, Rehab Eval [place]: Sit/Supine: independent Bed Mobility Skill: Supine To Sit, Rehab Eval [place]: Supine/Sit: independent Transfers Transfer Skill: Bed To Chair/Chair To Bed, Rehab Eval Type of Transfer: step pivot Level Of [place]: Bed To Chair: modified independent Physical Assist/Nonphysical Assist: Bed To Chair: (.) Assistive Device: 2 wheeled walker Goal Transfers Bed to Chair/Chair to Bed Bed to Chair/Chair to Bed STG Status: Met STG Transfers Bed to Chair/Chair to Bed: modified independent Transfer Skill: Sit To Stand, Rehab Eval Level Of [place]: Sit/Stand: modified independent Physical Assist/Nonphysical Assist: Sit/Stand: (.) Assistive Device For Transfer: Sit/Stand: 2 wheeled walker Goal Transfers Sit to Stand Sit to Stand STG Status: Met STG Transfers Sit to Stand : modified independent Transfer Skill: Stand To Sit, Rehab Eval [place] Of [place]: Stand/Sit: modified independent Physical Assist/Nonphysical Assist: Stand/Sit: [...] Summary & Review . Outcome: Progressing This rn case management visited with this patient who had cervical [...] Mobility Skill: Rolling/Turning, PT Eval Level [place]: independent Bed Mobility Skill: Sit To Supine, Rehab Eval Level Of [place]: Sit/Supine: independent Bed Mobility Skill: Supine To Sit, Rehab Eval Level Of [place]: Supine/Sit: independent Transfers Transfer Skill: Bed To Chair/Chair To Bed, Rehab Eval Type of Transfer: step pivot [place]: Bed To Chair: modified independent Physical Assist/Nonphysical Assist: Bed To Chair: (.) Assistive Device: 2 wheeled walker Goal Transfers Bed to Chair/Chair to Bed Bed to Chair/Chair to Bed STG Status: Met STG Transfers Bed to Chair/Chair to Bed: modified independent Transfer Skill: Sit To Stand, Rehab Eval Level Of [place]: Sit/Stand: modified independent Physical Assist/Nonphysical Assist: Sit/Stand: (.) Assistive Device For Transfer: Sit/Stand: 2 wheeled walker Goal Transfers Sit to Stand Sit to Stand STG Status: Met STG Transfers Sit to Stand : modified independent Transfer Skill: Stand To Sit, Rehab Eval Level [place]: Stand/Sit: modified independent Physical Assist/Nonphysical Assist: Stand/Sit: (.) Assistive Device For Transfer: Stand/Sit: 2 wheeled walker Goal Transfers Stand to Sit Stand to Sit STG Status: Met STG Transfers Stand to Sit: modified independent Transfer Safety Analysis, Rehab Eval Transfer Safety Concerns Noted: decreased balance during turns, decreased proprioception Impaired Transfers: impaired balance Gait Gait Skills, PT Eval Level Of [place]: Gait: modified independent Physical Assist/Nonphysical Assist: Gait: (.) Assistive Device For Transfer: Gait: 2 wheeled walker Gait Distance: 300 feet Goal Gait Gait STG Status: Met STG Gait: modified independent STG Gait Device: 2 wheeled walker STG Gait Distance: 300 feet Stairs Stair, Performance Number Of Stairs: 4 Stair Railings: present on both sides Level [place]: modified independent Physical Assist/Nonphysical Assist: verbal cues [...] amts of drainage. lan of Lan Reed, SOLE ROUNDING MACHINE OPERATOR - 07/27/2014 4:29 AM PDTThe patient is [...] Mobility Skill: Rolling/Turning, PT Eval Level Of [place]: did not occur today Bed Mobility Skill: Sit To Supine, Rehab Eval Level Of [place]: Sit/Supine: did not occur today Bed Mobility Skill: Supine To Sit, Rehab Eval Level Of [place]: Supine/Sit: did not occur today Transfers Transfer Skill: Bed To Chair/Chair To Bed, Rehab Eval Type of Transfer: step pivot [place]: Bed To Chair: supervision/set-up Physical Assist/Nonphysical Assist: Bed To Chair: verbal cues, 1 person assist Assistive Device: 2 wheeled walker Goal Transfers Bed to Chair/Chair to Bed Bed to Chair/Chair to Bed STG Status: New STG Transfers Bed to Chair/Chair to Bed: modified independent Transfer Skill: Sit To Stand, Rehab Eval Level Of [place]: Sit/Stand: supervision/set-up Physical Assist/Nonphysical Assist: Sit/Stand: verbal cues Assistive Device For Transfer: Sit/Stand: 2 wheeled walker Goal Transfers Sit to Stand Sit to Stand STG Status: New STG Transfers Sit to Stand : modified independent Transfer Skill: Stand To Sit, Rehab Eval Level Of [place]: Stand/Sit: supervision/set-up Physical Assist/Nonphysical Assist: Stand/Sit: verbal cues Assistive Device For Transfer: Stand/Sit: 2 wheeled walker Goal Transfers Stand to Sit Stand to Sit STG Status: New STG Transfers Stand to Sit: modified independent Transfer Safety Analysis, Rehab Eval Transfer Safety Concerns Noted: decreased balance during turns, decreased proprioception Impaired Transfers: impaired balance Gait Gait Skills, PT Eval Level Of [place]: Gait: supervision/set-up Physical Assist/Nonphysical Assist: Gait: verbal cues Assistive Device For Transfer: Gait: 2 wheeled walker Gait Distance: 300 feet Goal Gait Gait STG Status: New STG Gait: modified independent STG Gait Device: 2 wheeled walker STG Gait Distance: 300 feet Stairs Stair, Performance Number Of Stairs: 4 Stair Railings: present on both sides Level Of [place]: supervision/set-up Physical Assist/Nonphysical Assist: verbal cues Assistive [...] thin liquids by straw with no difficulty. OTR OWNER OPERATOR TRUCK DRIVER provided education about swallowing post o p. [...] recommendation: no further Speech Therapy Planned Interventions: OTR OWNER OPERATOR TRUCK DRIVER Diagnosis: Odynophagia but swallow WNL At bedside, [...] Swallow: Patient will complete swallow evaluation with OTR OWNER OPERATOR TRUCK DRIVER s/p ACS Electronically signed by: Donita Taylor SPEECH PATHO, 07/26/2014 17:17 Start Time: 1640 Stop time: 1703 Duration: 23 minutes 5:1 7 PM PDTOp Note - Wes Weber MD - 07/26/2014 2:02 PM PDT Operative Note Buck Bell 69 y.o. male 1945 [id number] Proc. Date 07/26/2014 Preop Dx Cervical spondylosis with myelopathy Cervical stenosis Cervical degenerative disc disease Cervical foraminal stenosis Cervical kyphosis Cervical radiculopathy Postop Dx same Procedure 1. Anterior cervical discectomy and fusion C3-4, C4-5, C5-6, and C6-7 2. Anterior cervical plating C3-7 using Crest [employer]ational 3. Anterior structural allograft bone C3-4, C4-5, C5-6, and C6-7 4. Microsurgical technique with use of operating microscope Anesthesia General, Dr. Calix Surgeon Surgeon(s) and Role: * Wes Weber MD - Primary Lab Asst Daniel Bonilla EBL 264 Findings C3-C7 severe [...] allograft prior to insertion was filled with [place] bone. The structural allograft bone was then tamped into place at C3-4, C4-5, C5-6, and C6-7. Anterior cervical plating was then performed by holding a 80 mm Crest Translational plat e in place over the segments with holding pins. Fluoroscopy was used to confirm its appropr iate positioning and then menhaden vessel pilot holes were made in the C3-C7 [...] signed by: Wes Weber MD 07/26/2014 14:00 [facility] rief Op Note - Chris Weber MD - 07/26/2014 2:00 PM PDTFormatting of this note might be different from the origin al. Brief Operative Note Buck Bell 69 y.o. male 1945 [id number] Proc. Date 07/26/2014 Preop Dx Cervical spondylosis with myelopathy Cervical stenosis Cervical degenerative disc disease Cervical foraminal stenosis Cervical kyphosis Cervical radiculopathy Postop Dx same Procedure 1. Anterior cervical discectomy and fusion C3-4, C4-5, C5-6, and C6-7 2. Anterior cervical plating C3-7 using Crest [employer]ational 3. Anterior structural allograft bone C3-4, C4-5, C5-6, and C6-7 4. Microsurgical technique with use of operating microscope Anesthesia General, Dr. Calix Surgeon Surgeon(s) and Role: * Wes Weber MD - Primary Lab Asst Daniel Bonilla EBL 264 Findings C3-C7 severe DDD with large anterior and posterior osteophytes. Complications none Specimens * No specimens in log * Drains Drain/Device Site 07/26/14 1326 #1 Right: cervical spine collapsible closed device (Act alejandro) Insertion Site Appearance clean and dry 07/26/2014 13:54 Drainage Characteristics/Odor serosanguineous 07/26/2014 13:54 Drainage Amount scant 07/26/2014 13:54 Electronically signed by: Wes Weber MD 07/26/2014 14:00 [facility] documented in this encou nter Plan [...] [facility] | | | | | | [place] [address] | | | | | | [phone] | | | | | | | | +--------+ + + + + | 03/13/ | Office | Neurology | Veronica, | | | 2019 | Visit | | HALI Adams [address] | | | | | [address] [place], | | | | | | [place] [address] | | | | | | [phone] | | | | | | | [...] + + | Performing | Address | City/State/[facility] | Phone Number | | [...]
--- OUTSIDE RECORDS SUMMARY | ~2019-12-22 | XMS | Encounter Summary ---
Demographics + + + | Address | [address] | | | [place] [address] | + + + | Home Phone [...] Team Providers + +------+ + | Care Homogenizer Operator Name | Role | Phone | [...] [address]VE | | | | | [facility] [address] | [place] [address] | | | | | [place] | [phone] | | | | | [address] | | | | | | [phone] | | | +--------+ + + + [...] he can be reached by email at [email or web address]. elephone Kiersten - Edna Mcdermott - 05/08/2014 11:23 AM PSTLeft a detailed voicemail for Buck. Requeste d callback. elephone En counter - Krista Yuan - 05/08/2014 10:19 AM PSTPatient called back. Stated he will call b ack later. elephone Jessica madrid - Edna Mcdermott - 05/07/2014 10:26 AM PSTSee referral# [id number]. One level of the surgery requested was [...] [place] | | | | | | [place] [address] | | | | | | [phone] | | | | | | | | +--------+ + + + + | 03/13/ | Office | Neurology | Veronica, | | | 2019 | Visit | | [address]I [address] | | | | [address] [place], | | | | | | [place] [address] | | | | | | [phone] | | | | | | | | +--------+ + + + + documented as of this encounter Visit Diagnoses Not on filedocumented in this encounter"
--- OUTSIDE RECORDS SUMMARY | ~2019-12-22 | XMS | Encounter Summary ---
Demographics + + + | Address | [address] | | | [place] [address] | + + + | Home Phone [...] Team Providers + +------+ + | Care Slate Roofer Helper Name | Role | Phone | [...] + | 07/03/ | Refill | [facility] | Haroldo King | Medication Refill | | 2015 | | NEUROSURGERY [address] | [address] | | | | | [address] | [address] [place], [place] | | | | | [place], [place] | [id number] | | | | | [address] | | | | | | [phone] | | | +--------+--------+ + + + [...] | | | | | | [address] | | | | | | [place] [address] | | | | | | [phone] | | | | | | | | +--------+ + + + + | 03/13/ | Office | Neurology | Veronica, | | | 2019 | Visit | | Zeeramonaotilio PRODUCT MARKETING ENGINEER [address] | | | | | | [address] [facility] [place], | | | | | | [place] [address] | | | | | | [phone] | | | | | | | | +--------+ + + + + documented as of this encounter Visit Diagnoses + + | Diagnosis | + + | S/P cervical spinal fusion - Primary Arthrodesis status | + + documented in this encounter"
--- OUTSIDE RECORDS SUMMARY | ~2019-12-22 | XMS | Encounter Summary ---
Demographics + + + | Address | [address] | | | [place] [address] | + + + | Home Phone | | + + + | Preferred Language | Unknown | + + + | Marital Status | Single | + + + | Scientologist Affiliation | [id number] | + + + [...] Providers + +------+ + | Care Sales Floor Manager Name | Role | Phone | [...] | MD [address] | [address] | | | | | Procedures | [address] | [place]aquin Nuñez, | | | | | MRI Lumbar | [place], | [place] | | | | | Spine wo | [place] [address] | [address] | | | | | Contrast | Phone: | Phone: | | | | | | [phone] | [phone] | | | | | | Fax: | Fax: | | | | | | [phone] | [phone] | +--------+--------+ + + + + Reason [...] | MD [address] | [address] | | | | | Procedures | [address] | Mccormick, | | | | | MRI Lumbar | [place], | [place] | | | | | Spine wo | [place] [address] | [address] | | | | | Contrast | Phone: | Phone: | | | | | | [phone] | [phone] | | | | | | Fax: | Fax: | | | | | | [phone] | [phone] | +--------+--------+ + + + + Encounter Details +--------+ + + + + | Date | Type | Department | Care Team | Description | +--------+ + + + + | 01/30/ | Hospital | [facility] | Wes Melvin MD | Back pain | | 2013 | Encounter | MED CTR MRI [address] | [address] | | | | | [place] [place], | [place] [address] | | | | | [place] [address] | [phone] | | | | | [phone] | | | +--------+ + + + [...] | | | | | TOY Qu[address]z [facility] | | | | | | [place] [address] | | | | | | [phone] | | | | | | | | +--------+ + + + + | 03/13/ | Office | Neurology | Veronica, | | | 2019 | Visit | | HALI Adams [address] | | | | [address] [place], | | | | | | [place] [address] | | | | | | [phone] | | | | | | | [...] + | MISCELLANEOUS LAB | | | [phone] | + +---------+ + + | MISCELANIOUS LAB | | | [phone] | + +---------+ + + documented in this encounter Visit Diagnoses + + | Diagnosis | + + | Back pain Backache, unspecified | + + documented in this encounter"
--- OUTSIDE RECORDS SUMMARY | ~2019-12-22 | XMS | Encounter Summary ---
Demographics + + + | Address | [address] | | | [place] [address] | + + + | Home Phone [...] Organization | [facility] [...] Providers + +------+ + | Care Turbine Mechanic Name | Role | Phone | + +------+ + | Dominic Carlin MD | PCP | | + +------+ + Encounter Details +--------+ + + + + | Date | Type | Department | Care Team | Description | +--------+ + + + + | 08/23/ | Hospital | [facility] | Haroldo King | S/P cervical spinal | | 2015 | Encounter | MED CTR XRAY [address] | [address] | fusion | | | | [place] | [address] [place] | | | | | [place] [address] | [address] | | | | | [phone] | | | +--------+ + + + [...] | | | | | TOY Qu[address]z [facility] | | | | | | [place] [place] [address] | | | | | | [phone] | | | | | | | | +--------+ + + + + | 03/13/ | Office | Neurology | Veronica, | | | 2019 | Visit | | [address]I Adams [address] | | | | | | [address] [place], | | | | | | [place] [address] | | | | | | [phone] | | | | | | | [...] + | [address] | [address] | [place], [place] | [phone] | | [facility] | | [address] | | | - IMAGING | | | | + + + + + documented in this encounter Visit Diagnoses + + | Diagnosis | + + | S/P cervical spinal fusion Arthrodesis status | + + documented in this encounter"
--- OUTSIDE RECORDS SUMMARY | ~2019-12-22 | XMS | Encounter Summary ---
Demographics + + + | Address | [address] | | | [place] [address] | + + + | Home Phone | | + + + | Preferred Language | Unknown | + + + | Marital Status | Single | + + + | Faith Affiliation | Unknown | + + + | Race | or | + + + | Ethnic Group | Not or | + + + Author + + + | Author | [facility] | + + + | [...] Team Providers + +------+ + | Care Hospice Aide Name | Role | Phone | [...] | | | | | | Rd [place], | | | | | | | [place] | | | | | | | [address] | | | | | | | Phone: | | | | | | | [phone] | | | | | | | Fax: | | | | | | | [phone] | +--------+--------+ + + + + Encounter Details +--------+---------+ + + + | Date | Type | Department | Care Team | Description | +--------+---------+ + + + | 03/05/ | Office | Orthopaedics | Jawsant Angeles MD | Shoulder Pain; | | 2007 | Visit | [facility] [place] | [address] | Injury of Axillary | | | | for Health and | [address] | Nerve; Unspecified | | | | Healing [address] | [place], [place] | Disorders of Bursae | | | | Ave [facility] for | [address] | and Tendons in | | | | Health and Healing, | [phone] | Shoulder Region | | | | [facility] | | | | | | Floor [place], [place] | | | | | | [address] | | | | | | [phone] | | | +--------+---------+ + + + [...] | | + +---------+ + + | [facility] DEPARTMENT OF | | [...]
--- OUTSIDE RECORDS SUMMARY | ~2019-12-22 | XMS | Encounter Summary ---
Demographics + + + | Address | [address] | | | [place] [address] | + + + | Home Phone [...] Team Providers + +------+ + | Care Millwright Instructor Name | Role | Phone | [...] [address] | | | | | [place], [place] | [address] | | | | | [address] | | | | | | [phone] | | | +--------+ + + + [...] K[facility]ER | | | | | | [address] | | | | | | [place] [address] | | | | | | [phone] | | | | | | | | +--------+ + + + + | 03/13/ | Office | Neurology | Veronica, | | | 2019 | Visit | | HALI Adams [address] | | | | | [address] [place], | | | | | | [place] [address] | | | | | | [phone] | | | | | | | [...] Postop. COMPARISON: 07/26/2014. FINDINGS: Visualized skull | [facility] | | base and facial structures [...] + + | Performing | Address | City/State/[facility] | Phone Number | | Organization | | | | + + + + + | [facility] | [address] | [place], [place] | [phone] | | [facility] | | [address] | | | - IMAGING | | | | + + + + + documented in this encounter Visit Diagnoses + + | Diagnosis | + + | S/P cervical spinal fusion - Primary Arthrodesis status | + + documented in this encounter"
--- OUTSIDE RECORDS SUMMARY | ~2019-12-22 | XMS | Encounter Summary ---
Demographics + + + | Address | [address] | | | [place] [address] | + + + | Home Phone [...] Providers + +------+ + | Care Cloth Drier Name | Role | Phone | + [...] + + | 12/03/ | Telephone | [facility] | Yazmin Jesus, | Follow-up | | 2020 | | VASCULAR SURGERY | RN | | | | | [address] | | | | | | [place] | | | | | | [address] | | | | | | [phone] | | | +--------+ + + + [...] HOSPITAL | | | | | | [place] [address] | | | | | | [phone] | | | | | | | | +--------+ + + + + | 03/13/ | Office | Neurology | Veronica, | | | 2019 | Visit | | HALI Adams [address] | | | | [address] [place], | | | | | | [place] [address] | | | | | | [phone] | | | | | | | | +--------+ + + + + documented as of this encounter Visit Diagnoses Not on filedocumented in this encounter"
--- OUTSIDE RECORDS SUMMARY | ~2019-12-22 | XMS | Encounter Summary ---
Demographics + + + | Address | [address] | | | [place] [address] | + + + | Home Phone [...] + | Organization | [facility] | [...] Team Providers + +------+ + | Care Certified Legal Investigator Name | Role | Phone | [...] [place] | | | | | | [address] | | | | | | [phone] | | | +--------+ + + + [...] | | | | | TOY Qu[address] [facility] | | | | | | [place] [address] | | | | | | [phone] | | | | | | | | +--------+ + + + + | 03/13/ | Office | Neurology | Veronica, | | | 2019 | Visit | | HALI [address] | | | | [address] [place], | | | | | | [place] [address] | | | | | | [phone] | | | | | | | | +--------+ + + + + documented as of this encounter Visit Diagnoses Not on filedocumented in this encounter"
--- OUTSIDE RECORDS SUMMARY | ~2019-12-22 | XMS | Encounter Summary ---
Demographics + + + | Address | [address] | | | [place] [address] | + + + | Home Phone [...] + + | Author | [facility] | + [...] Team Providers + +------+ + | Care Welfare Adviser Name | Role | Phone | [...] | | | | and tendons | [facility] | [facility] | | | | | in shoulder | Rd | Rd [place], | | | | | region, | [place], [place] | [place] | | | | | unspecified | [address] | [address] | | | | | Procedures | Phone: | Phone: | | | | | CONSULT TO | [phone] | [phone] | | | | | ORTHOPEDICS | Fax: | Fax: | | | | | AND | [phone] | [phone] | | | | | REHABILITATI | [...] | | | | | | [place], | | | | | | | [place] | | | | | | | [address] | | | | | | | Phone: | | | | | | | [phone] | | | | | | | Fax: | | | | | | | [phone] | +--------+--------+ + + + + Encounter Details +--------+---------+ + + + | Date | Type | Department | Care Team | Description | +--------+---------+ + + + | 04/19/ | Office | Orthopaedics | Jaswant Angeles MD | Unspecified | | 2007 | Visit | [facility] [place] | [address] | Disorders of Bursae | | | | for Health and | [address] | and Tendons in | | | | Healing [address] | [place], [place] | Shoulder Region | | | | [facility] for | [address] | (Primary Dx) | | | | Health and Healing, | [phone] | | | | | | | | | | | Floor [place], [place] | | | | | | [address] | | | | | | [phone] | | | +--------+---------+ + + + [...]
--- OUTSIDE RECORDS SUMMARY | ~2019-12-22 | XMS | Clinical Summary ---
Demographics + + + | Address | [address] | | | [place] [address] | + + + | Home Phone [...] Team Providers + +------+ + | Care Floor Scraper Name | Role | Phone | + +------+ + PCP | Unavailable | + +------+ + Source Comments JOSSUE is fully live on both [facility] Ambulatory and [facility] InPatient.[facility] Allergies No Known Allergies Medications + [...] | | | + +--------+ +--------+-------+---------+--------+ | [facility] | DJIBOUTIAN | xxxxxxxxx | Effect | | | [...] Person | Self | [birth year] | [address] | | | al/Cristi | | 1945 | [phone] | [place] | | | carolyn | | | 4 (Home) | [address] | | | | | | [phone] | | | | | | | 0 (Work) | | + +--------+ +--------+ + + | Buck Bell | Agency | Self | [birth year] | | [address] | | | | | 1945 | [phone] | [place] | | | | | | 4 (Home) | [address] | | | | | | [phone] | | | | | | | 0 (Work) | | + +--------+ +--------+ + + Advance Directives + + + + + | Type | Date Recorded | Patient | Explanation | | | | Visitor Services Assistant | | + + + + + | Advance | | | | | Directives and | | | | | Living Will | | | | + + + + + | Power of | | | | | Tunnel Heading Supervisor | | | | + + + + +
--- OUTSIDE RECORDS SUMMARY | ~2019-12-22 | XMS | Encounter Summary ---
Demographics + + + | Address | [address] | | | [place] [address] | + + + | Home Phone [...] Organization | [facility] | | | and [place] | + [...] Providers + +------+ + | Care Manager General Name | Role | Phone | + [...] | | [address] | [place] [address] | instructions) | | | | [place] | [phone] | | | | | [address] | | | | | | [phone] | | | +--------+ + + + [...] | | | | TO[address] [facility] | | | | | | [place] [address] | | | | | | [phone] | | | | | | | | +--------+ + + + + | 03/13/ | Office | Neurology | Veronica, | | | 2019 | Visit | | [address] | | | | | | [address] [place], | | | | | | [place] [address] | | | | | | [phone] | | | | | | | | +--------+ + + + + documented as of this encounter Visit Diagnoses Not on filedocumented in this encounter"
--- OUTSIDE RECORDS SUMMARY | ~2019-12-22 | XMS | Encounter Summary ---
Demographics + + + | Address | [address] | | | [place] [address] | + + + | Home Phone [...] Organization | [facility] [...] Team Providers + +------+ + | Care Accounts Receivable Administrator Name | Role | Phone | [...] + + | 07/11/ | Office | [facility] | Haroldo King | Cervical spondylosis | | 2015 | Visit | NEUROSURGERY [address] | AMOR [address] | with myelopathy | | | | [address] | [address] [place], [place] | (Primary Dx); | | | | [place], [place] | [address] | Cervical cord | | | | [address] | | myelomalacia ([facility]); | | | | [phone] | | Degenerative disc | | | [...] [facility] [address] [place] [address] FAX: NEUROSURGERY HISTORY AND PHYSICAL EXAMINATION CHIEF [...] no apparent deficits with short or intermediate memory. CRANIAL NERVES: II: Acuity is intact. [...] Intrinsics 5 4 Ulnar Intrinsics 5 4 Swinging Cut Off Saw Operator Strength 5 4 Hip Flexion 4 4 [...] | | | | TO[address] [facility] | | | | | | [place] [address] | | | | | | [phone] | | | | | | | | +--------+ + + + + | 03/13/ | Office | Neurology | Veronica, | | | 2019 | Visit | | [address] | | | | | | [address] [place], | | | | | | [place] [address] | | | | | | [phone] | | | | | | | [...]
--- OUTSIDE RECORDS SUMMARY | ~2019-12-22 | XMS | Encounter Summary ---
Demographics + + + | Address | [address] | | | [place] [address] | + + + | Home Phone [...] Team Providers + +------+ + | Care Negative Cleaner Name | Role | Phone | [...] + + | 11/30/ | Anesthesia | [facility] | Allison Segura, | | | 2019 | Event [facility] | MD [address] | | | | | [address]PER[address] | [place] [address] | | | | | [address] | [phone] | | | | | [place], [place] | | | | | | [address] | | | | | | [phone] | | | +--------+ + + + [...] | | | | neck | Miley Byokin RN | | +--------+ + + + | Periph | 12/01/19; 1014; Right; Anterior | 12/01/19 1014 by | 12/03/19 1539 by | | guadalupe | (palmar), Proximal; Forearm; | Daisy Franz RN | Dahiana Pablo RN | | IV | bwdl-rbk-cfprit catheter system; | | | | | [...] EVALUATION Buck Bell 74 y.o. male 1945 [id number] Procedure(s) CAROTID ENDARTERECTOMY (Right Neck) Cooperates? Yes [...] Allison Segura MD 12/01/2019 4:25 PM PDT [facility] nesthesia Procedure Notes - Allison Segura [...] EVALUATION Buck Bell 74 y.o. male 1945 [id number] Procedure(s): CAROTID ENDARTERECTOMY (Right Neck) Review of [...] NOTE Buck Bell 74 y.o. male 1945 [id number] CAROTID ENDARTERECTOMY (Right Neck) HANDOFF NOTE Handoff [...] Allison Segura MD 12/01/2019 4:18 PM PDT [facility] documented in this encounter Plan of [...] | | | | | [address] [facility] | | | | | | [place] [address] | | | | | | [phone] | | | | | | | | +--------+ + + + + | 03/13/ | Office | Neurology | Veronica, | | | 2019 | Visit | | [address]I [address] | | | | | | [address] [facility], | | | | | | [place] [address] | | | | | | [phone] | | | | | | | [...]
--- OUTSIDE RECORDS SUMMARY | ~2019-12-22 | XMS | Encounter Summary ---
Demographics + + + | Address | [address] | | | [place] [address] | + + + | Home Phone [...] Providers + +------+ + | Care Fire Hydrant Mechanic Name | Role | Phone | [...] | | | | CLINIC [address] | [place] [address] | Cervical spondylosis | | | | [place] | [phone] | with myelopathy; | | | | [address] | | Essential | | | | [phone] | | hypertension; High | | | [...] | | | | | [address] [facility] | | | | | | [place] [address] | | | | | | [phone] | | | | | | | | +--------+ + + + + | 03/13/ | Office | Neurology | Veronica, | | | 2019 | Visit | | [address] | | | | | | [facility] [facility] | | | | | | [place] [address] | | | | | | [phone] | | | | | | | [...] | | | Cells | | | [facility] | | | | | MEDICAL | | | | | | CENTER - | | | | | | LABORATORY | | + + + + + + | Red Blood | 4.68 | 4.30 - 5.70 | [facility] | | | Cells | | M/uL | [facility] | | | | | | MEDICAL | | | | | | CENTER - | | | | | | LABORATORY | | + + + + + + | Hemoglobin | 14.8 | 13.5 - 18.0 | [facility] | | | | | g/dL | [facility] | | | | | | MEDICAL [...] [address] | [place] | [phone] | | [facility] | | [address] | | | - LABORATORY | | | | + + + + + | [facility] | [address] | [place] | | | [facility] | | [address] | | | - [...] mL/min/1.73m2 | [facility] | | | [place] | RATE,ESTIMATED | | MEDICAL | | | | mL/min/1.70g2Tcge than | | CENTER - | | [...] + | Performing | Address | City/[facility]/Zipcode | Phone Number | | Organization | | | | + + + + + | [facility] | [address] | [place], [place] | [phone] | | [facility] | | [address] | | | - LABORATORY | | | | + + + + + | [facility] | [address] | [place], [place] | | | [facility] | | [id number] [place] [address] | | | - LABORATORY | | [...]
--- OUTSIDE RECORDS SUMMARY | ~2019-12-22 | XMS | Encounter Summary ---
Demographics + + + | Address | [address] | | | [place] [address] | + + + | Home Phone [...] Team Providers + +------+ + | Care Harp Repairer Name | Role | Phone | [...] | MD [address] | [address] | | | | | spondylosis | [address] | [place], | | | | | with | [facility] | [place] | | | | | myelopathy | [place] [address] | [address] | | | | | Cervical | Phone: | Phone: | | | | | cord | [phone] | [phone] | | | | | myelomalacia | Fax: | Fax: | | | | | (HCC) | [phone] | [phone] | | | | | Degenerative | [...] | spondylosis | [address] | [place], | | | | | with | [place], | [place] | | | | | myelopathy | [place] [address] | [address] | | | | | Cervical | Phone: | Phone: | | | | | cord | [phone] | [phone] | | | | | myelomalacia | Fax: | Fax: | | | | | ([facility]) | [phone] | [phone] | | | | | Degenerative | [...] | with myelopathy; | | | | [address] [place], | [place] [address] | Cervical cord | | | | [place] [address] | [phone] | myelomalacia (HCC); | | | | [phone] | | Degenerative disc | | | [...] encounter Miscellaneous Notes Miscellaneous - ZEYNEP HAWKINS [facility] - 02/14/2014 12:00 AM PDT documented in [...] | | | | | [place] [address] | | | | | | [phone] | | | | | | | | +--------+ + + + + | 03/13/ | Office | Neurology | Veronica, | | | 2019 | Visit | | Angie, UNDERWRITING ANALYST [address] | | | | | | [address]TH [facility], | | | | | | [place] [address] | | | | | | [phone] | | | | | | | [...] | in the cervical cord at the K0ychho.2. Multilevel degenerative disc and spondylitic | | [...] + | MISCELLANEOUS LAB | | | [phone] | + +---------+ + + | MISCELANIOUS LAB | | | [phone] | + +---------+ + + documented in this encounter Visit Diagnoses + + | Diagnosis | + + | Cervical spondylosis with myelopathy | + + | Cervical cord myelomalacia (HCC) Other myelopathy | + + | Degenerative disc disease, cervical Degeneration of cervical intervertebral disc | + + documented in this encounter"
--- OUTSIDE RECORDS SUMMARY | ~2019-12-22 | XMS | Encounter Summary ---
Demographics + + + | Address | [address] | | | [place] [address] | + + + | Home Phone [...] Team Providers + +------+ + | Care Answering Service Agent Name | Role | Phone | [...] | | | | | Duplex | [place], [place] | | | | | | Bilateral | [address] | | | | | | | Phone: | | | | | | | [phone] | | | | | | | Fax: | | | | | | | [phone] | | +--------+--------+ + + + + [...] + + | 12/05/ | Telephone | [facility] | Yazmin Jesus, | Follow-up | | 2020 | | VASCULAR SURGERY | RN | | | | | [address] | | | | | | E [place] | | | | | | [address] | | | | | | [phone] | | | +--------+ + + + [...] AM PDTReturn call [facility]. Dr Jose has ordered for patient to start 500 mg Keflex twice daily. María Elena Chaierz DNP faxe d order to [facility] as requested by patient. Cecy reports [...] Cecy and can be reac hed at [phone] elephone Monae Rosen 12/11/2019 9:07 AM NICKOLAS Engel, is calling for Follow-up and would like a call back. Additional Call Details: Stated they received a call from patient and he is still bleeding , more when he lays down, and has a back odor. Feels this is an urgent matter. Please call Buck back at [phone] or Cecy, Sister in law at [phone] elephone Encounter - Yazmin Cisneros RN - 12/06/2019 9:56 AM PDTReceived call from John, patient's pymhqc-kc-bhr yesterday evening. Patient had some bleeding at [...] | | | | | TOY [address] [facility] | | | | | | [place] [address] | | | | | | [phone] | | | | | | | | +--------+ + + + + | 03/13/ | Office | Neurology | Veronica, | | | 2019 | Visit | | [address] | | | | | | 4TH [facility], | | | | | | [place] [address] | | | | | | [phone] | | | | | | | [...] Procedure Note | + + | [place], [id number] - 12/13/2019 11:59 AM PDT | | [...]
--- OUTSIDE RECORDS SUMMARY | ~2019-12-22 | XMS | Encounter Summary ---
Demographics + + + | Address | [address] | | | [place] [address] | + + + | Home Phone [...] Team Providers + +------+ + | Care Shagger Name | Role | Phone | + [...] | | [address] | [place] [address] | | | | | [place] | [phone] | | | | | [address] | | | | | | [phone] | | | +--------+ + + + [...] Telephone Encounter - Carlita Pate Master of [employer] - 09/26/2014 8:19 AM PDTCall re turned. Left message for patient stating "He could do self directed PT at home", Per Dr. Nemo juan's instructions. elephone Encounter - Carlita Paet Master of [employer] - 09/25/2014 8:27 A M PDTCall returned. [...] 1 initial consult with physical therapy at [facility] and felt that this sessio n caused [...] | | | | [address] | | | | | | [facility] [place] [address] | | | | | | [phone] | | | | | | | | +--------+ + + + + | 03/13/ | Office | Neurology | Veronica, | | | 2019 | Visit | | [address] | | | | | | [address] [place], | | | | | | [place] [address] | | | | | | [phone] | | | | | | | | +--------+ + + + + documented as of this encounter Visit Diagnoses Not on filedocumented in this encounter
--- OUTSIDE RECORDS SUMMARY | ~2019-12-22 | XMS | Encounter Summary ---
Demographics + + + | Address | [address] | | | [place] [address] | + + + | Home Phone [...] Team Providers + +------+ + | Care Print Operator Name | Role | Phone | + +------+ + PCP | Unavailable | + +------+ + Encounter Details +--------+ + + + + | Date | Type | Department | Care Team | Description | +--------+ + + + + | 08/31/ | Hospital | [facility] | Joe, | Unspecified Backache | | 2009 | Encounter | CONVERSION DEP [address] | MD Danii | | | | | [address] | | | | | | [place] | | | | | | [address] | | | | | | [phone] | | | +--------+ + + + [...] [address] | | | | | | [address] | | | | | | [place] [address] | | | | | | [phone] | | | | | | | | +--------+ + + + + | 03/13/ | Office | Neurology | Veronica, | | | 2019 | Visit | | [address] | | | | | | [address] [place], | | | | | | [place] [address] | | | | | | [phone] | | | | | | | [...] Performed At | + + + | [id number] [facility] | | | [facility] [address] | | | , RADIOLOGY | | | Patient Name: ISA OSMAN Date of : 1945 | | | Medical Record: [id number] Account: [id number] O/P// | | | Exam Date/Time: 08/31/2009 [...] exiting right L1 nerve root. There is fiij-cw-njslzpzw left neural | | | foraminal narrowing. [...] lateral | | | recesses. There is qapeuths-li-lqraee right and severe left neural | | [...] | bilateral L4 nerve roots. There is epgvkbiq-fa-fupehf left and severe | | | right [...] AP dimension. There is severe left and optecjha-fw-ftngez right | | | neural foraminal narrowing that is likely impinging on the exiting | | | bilateral L4 nerve roots. L5-S1: There is disk desiccation with | | | rngcruoy-dh-pddsgd disk space narrowing and associated degenerative | [...] greatest on the left side. There is grbokfbs-px-phvccj right | | | with severe left [...] and L5 nerve roots. 3. Please see diutp-wa-nepol | | | discussion above. Read by AUDRA WILKINS DO | | | 09/02/2009 11:17 A Electronically Signed by AUDRA WILKINS DO | | | 09/02/2009 09:09 P A | | | 04:03 P BALBINA/brisa/[id number]/ cc: MD AUDRA PAIGE R | | | DO CLAUDETTE | | + + + + + | Procedure Note | + + | Chun Colón Conversion - 01/08/2019 4:40 PM PDT | | [id number] | | [facility] | | [facility] [address] | | , | | RADIOLOGY | | | | Patient Name: ISA OSMAN | | Date of : 1945 | | Medical Record: 158-07-06 | | Account: [id number] | | O/P// | | | | [...] exiting right L1 nerve root. There is gete-ii-zdvqlzvn left neural | | foraminal narrowing. | [...] narrowing of both lateral recesses. There is uijueqos-uk-cbiaip right | | and severe left neural [...] L4 nerve roots. There is | | fsgzxpah-sh-ohwiue left and severe right neural foraminal narrowing [...] AP dimension. There is severe left and jwfqpycq-zh-ateosa right | | neural foraminal narrowing that is likely impinging on the exiting | | bilateral L4 nerve roots. | | | | L5-S1: There is disk desiccation with ofvvigcm-os-khssoh disk space | | narrowing and associated [...] greatest on the left side. There is zqdcrucz-uc-sdhzum | | right with severe left neural [...] nerve roots. | | 3. Please see emsvv-dc-nzdwp discussion above. | | | | | | | | | | | | | | Read by | | AUDRA WILKINS DO 09/02/2009 11:17 A | | Electronically Signed by | | AUDRA WILKINS DO 09/02/2009 09:09 P | | | | A | | P | | BALBINA/brisa/[id number]/ | | cc: DANII MUSE MD | | AUDRA WILKINS DO | + + documented in this encounter Visit Diagnoses + + | Diagnosis | + + | Backache, unspecified | + + documented in this encounter"
--- OUTSIDE RECORDS SUMMARY | ~2019-12-22 | XMS | Encounter Summary ---
Demographics + + + | Address | [address] | | | [place] [address] | + + + | Home Phone [...] | Organization | [facility] [...] + +------+ + | Care Information Security Risk Analyst Name | Role | Phone | [...] + + | 11/14/ | Telephone | [facility] | Salvador Jose MD | Procedure (11/24/19) | | 2020 | | VASCULAR SURGERY | [address] | | | | | [address] | [facility] E [facility] | | | | | E [place], [place] | [place] [address] | | | | | [address] | [phone] | | | | | [phone] | | | +--------+ + + + [...] transfer the call to a brandon jane supervisor wrapping room was caller made aware that if at [...] | | | | | [place] [address] | | | | | | [phone] | | | | | | | | +--------+ + + + + | 03/13/ | Office | Neurology | Veronica, | | | 2020 | Visit | | [address] | | | | | [address] [place], | | | | | | [place] [address] | | | | | | [phone] | | | | | | | | +--------+ + + + + documented as of this encounter Visit Diagnoses Not on filedocumented in this encounter"
--- OUTSIDE RECORDS SUMMARY | ~2019-12-22 | XMS | Encounter Summary ---
Demographics + + + | Address | [address] | | | [place] [address] | + + + | Home Phone [...] | Author | [facility] | | | and [place] | + + + | Organization | [facility] | | [...] Providers + +------+ + | Care Medical Coordinator Pesticide Use Name | Role | Phone | + [...] + + | 07/11/ | Office | [facility] | Haroldo King | Cervical spondylosis | | 2015 | Visit | NEUROSURGERY [address] | [address] | with myelopathy | | | | [address] [place], [place] | (Primary Dx); | | | | [place], [place] | [address] | Cervical cord | | | | [address] | | myelomalacia ([facility]); | | | | [phone] | | Degenerative disc | | | [...] t from the original. NICKOLAS Ponce [address] [facility], [address] [place] [address] FAX: NEUROSURGERY HISTORY AND PHYSICAL EXAMINATION CHIEF [...] has no apparent deficits with short or fci memory. CRANIAL NERVES: II: Acuity is intact. [...] Intrinsics 5 4 Ulnar Intrinsics 5 4 Car Wash Attendant Strength 5 4 Hip Flexion 4 4 [...] | | TO[address] [facility] | | | | | | [place] [address] | | | | | | [phone] | | | | | | | | +--------+ + + + + | 03/13/ | Office | Neurology | Veronica, | | | 2019 | Visit | | [address] | | | | | [address] [place], | | | | | | [place] [address] | | | | | | [phone] | | | | | | | [...]
--- OUTSIDE RECORDS SUMMARY | ~2019-12-22 | XMS | Encounter Summary ---
Demographics + + + | Address | [address] | | | [place] [address] | + + + | Home Phone [...] | Author | [facility] | | | and [place] | + + + | Organization | [facility] [...] Team Providers + +------+ + | Care Pulverizer Name | Role | Phone | + [...] | | [address] | [place] [address] | | | | | [place] | [phone] | | | | | [address] | | | | | | [phone] | | | +--------+ + + + [...] | | | | | [address] | | | | | | [place] [address] | | | | | | [phone] | | | | | | | | +--------+ + + + + | 03/13/ | Office | Neurology | Veronica, | | | 2019 | Visit | | [address] | | | | | | [address] [place], | | | | | | [place] [address] | | | | | | [phone] | | | | | | | | +--------+ + + + + documented as of this encounter Visit Diagnoses Not on filedocumented in this encounter
--- OUTSIDE RECORDS SUMMARY | ~2019-12-22 | XMS | Encounter Summary ---
Demographics + + + | Address | [address] | | | [place] [address] | + + + | Home Phone [...] + | Author | [facility] | + + + | Organization | [...] Team Providers + +------+ + | Care Gutter Hanger Name | Role | Phone | + [...] | | | | | | Rd [place], | | | | | | | [place] | | | | | | | [address] | | | | | | | Phone: | | | | | | | [phone] | | | | | | | Fax: | | | | | | | [phone] | +--------+--------+ + + + + Encounter Details +--------+---------+ + + + | Date | Type | Department | Care Team | Description | +--------+---------+ + + + | 03/05/ | Office | Orthopaedics | Jaswant Angeles MD | Shoulder Pain; | | 2007 | Visit | [facility] [place] | [address] | Injury of Axillary | | | | for Health and | [address] | Nerve; Unspecified | | | | Healing [address] | [place], [place] | Disorders of Bursae | | | | [facility] | [address] | and Tendons in | | | | Health and Healing, | [phone] | Shoulder Region | | | | [facility] | | | | | | Floor [place], [place] | | | | | | [address] | | | | | | [phone] | | | +--------+---------+ + + + [...] | | + +---------+ + + | [facility] DEPARTMENT OF | | | | [...]
--- OUTSIDE RECORDS SUMMARY | ~2019-12-22 | XMS | Encounter Summary ---
Demographics + + + | Address | [address] | | | [place] [address] | + + + | Home Phone [...] Team Providers + +------+ + | Care Communication Manager Name | Role | Phone | [...] + + | 11/14/ | Office | [facility] | Salvador Jose MD | Carotid stenosis, | | 2019 | Visit | VASCULAR SURGERY | [address] | bilateral (Primary | | | | [address] | [address] | Dx) | | | | E [place], [place] | [place] [address] | | | | | [address] | [phone] | | | | | [phone] | | | +--------+---------+ + + + [...] Salvador Jose MD - 11/15/2019 10:30 AM [facility] [address] [place] [address] [place] [address] Office: [phone] DATE OF VISIT: 11/15/19 PATIENT NAME: Buck Bell : 1945; AGE: 74 y.o.; Sex:M PHONE NUMBER: ; (Work); ; PHYSICIAN: Salvador Jose MD PRIMARY CARE / REFERRING PHYSICIAN: No ref. provider found / HALI Thurman / [address] / [place] [address] / REASON FOR EVALUATION / CHIEF COMPLAINT: Follow up evaluation regarding bilateral carot id stenosis HISTORY OF PRESENT ILLNESS: Buck Bell is a 74 y.o. male patient who presents fo follow up regarding his bilateral carotid stenosis. He is a patient at [facility] and was seen at the ED at [facility] for headache and neck pain complaint s in 04/2019. 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 Given his recurrent dizziness and [...] Patient understands and is agreeable. Dictation software, [employer], used which may contain error for similar [...] | | | | | [address] [facility] | | | | | | [place] [address] | | | | | | [phone] | | | | | | | | +--------+ + + + + | 03/13/ | Office | Neurology | Veronica, | | | 2019 | Visit | | [address] | | | | | | [address]TH [facility], | | | | | | [place] [address] | | | | | | [phone] | | | | | | | | +--------+ + + + + documented as of this encounter Visit Diagnoses + + | Diagnosis | + + | Carotid stenosis, bilateral - Primary Occlusion and stenosis of multiple and | | bilateral precerebral arteries without mention of cerebral infarction | + + documented in this encounter
--- OUTSIDE RECORDS SUMMARY | ~2019-12-22 | XMS | Encounter Summary ---
Demographics + + + | Address | [address] | | | [place] [address] | + + + | Home Phone [...] Team Providers + +------+ + | Care Interior Design Teacher Name | Role | Phone | [...] | | [address] | [place] [address] | | | | | [place] | [phone] | | | | | [address] | | | | | | [phone] | | | +--------+ + + + [...] | | | | | [address] | | | | | | [place] [address] | | | | | | [phone] | | | | | | | | +--------+ + + + + | 03/13/ | Office | Neurology | Veronica, | | | 2019 | Visit | | [address] | | | | | [address] [place], | | | | | | [place] [address] | | | | | | [phone] | | | | | | | | +--------+ + + + + documented as of this encounter Visit Diagnoses Not on filedocumented in this encounter
--- OUTSIDE RECORDS SUMMARY | ~2019-12-22 | XMS | Encounter Summary ---
Demographics + + + | Address | [address] | | | [place] [address] | + + + | Home Phone [...] + + + | Author | [facility] | | | and [place] | + + + | Organization | [facility] | | [...] Team Providers + +------+ + | Care Division Commander Name | Role | Phone | + +------+ + | Dominic Carlin MD | PCP | | + +------+ + Encounter Details +--------+ + + + + | Date | Type | Department | Care Team | Description | +--------+ + + + + | 07/11/ | [facility] | [facility] | Wes Melvin MD | Cervical cord | | 2015 | Encounter | MED CTR | [address] | myelomalacia (HCC); | | | | ELECTRODIAGNOSTICS | [place] [address] | Cervical spondylosis | | | | [address] | [phone] | with myelopathy; | | | | [place] [address] | | Essential | | | | [phone] | | hypertension; High | | | [...] [place] | | | | | | [place] [address] | | | | | | [phone] | | | | | | | | +--------+ + + + + | 03/13/ | Office | Neurology | Veronica, | | | 2019 | Visit | | [address] | | | | | | [address] [place], | | | | | | [place] [address] | | | | | | [phone] | | | | | | | [...]
--- OUTSIDE RECORDS SUMMARY | ~2019-12-22 | XMS | Encounter Summary ---
Demographics + + + | Address | [address] | | | [place] [address] | + + + | Home Phone [...] Author + + + | Author | [facility] | + + + | Organization | [facility] | + + + | Address | Unknown | + + + | Phone | Unavailable | + + + Support + + +---------+ + | Name | Relationship | Address | Phone | + + +---------+ + | Gautam Ray | ECON | Unknown | | + + +---------+ + Care Team Providers + +------+ + | Care Trade Analyst Name | Role | Phone [...] in shoulder | [address] | [place], | | | | | region, | [place], [place] | [place] | | | | | unspecified | [address] | [address] | | | | | Procedures | Phone: | Phone: | | | | | CONSULT TO | [phone] | [phone] | | | | | ORTHOPEDICS | | Fax: | | | | | AND | | [phone] | | | | | REHABILITATI | [...] | | | | | | [place], | | | | | | | [place] | | | | | | | [address] | | | | | | | Phone: | | | | | | | [phone] | | | | | | | Fax: | | | | | | | [phone] | +--------+--------+ + + + + Encounter Details +--------+---------+ + + + | Date | Type | Department | Care Team | Description | +--------+---------+ + + + | 02/08/ | Office | Orthopaedics | Jaswant Angeles MD | Shoulder Pain; | | 2007 | Visit | [facility] | [address] | Unspecified | | | | for Health and | [address] | Disorders of Bursae | | | | Healing [address] | [place], [place] | and Tendons in | | | | [facility] for | [address] | Shoulder Region | | | | Health and Healing, | [phone] | | | | | | | | | | | Floor [place], [place] | | | | | | [address] | | | | | | [phone] | | | +--------+---------+ + + + [...] has underg one physical therapy without significant penitentiary benefit. He has a history of left [...] | | + +---------+ + + | [facility] | | | | [...]
--- OUTSIDE RECORDS SUMMARY | ~2019-12-22 | XMS | Encounter Summary ---
Demographics + + + | Address | [address] | | | [place] [address] | + + + | Home Phone [...] | Organization | [facility] [...] Providers + +------+ + | Care Sheet Manufacturing Supervisor Name | Role | Phone | + +------+ + PCP | Unavailable | + +------+ + Encounter Details +--------+ + + + + | Date | Type | Department | Care Team | Description | +--------+ + + + + | 05/16/ | Hospital | [facility] | Conversion | DDD (degenerative | | 2012 | Encounter | [facility] | Transaction, | disc disease); | | | | [address] | Provider Unknown | Neuralgia; Chronic | | | | [place] | [phone] | ischemic right MCA | | | | [address] | (Fax) | stroke | | | | [phone] | | | +--------+ + + + [...] | | | | TO[address] [facility] | | | | | | [place] [address] | | | | | | [phone] | | | | | | | | +--------+ + + + + | 03/13/ | Office | Neurology | Veronica, | | | 2019 | Visit | | [address] | | | | | | [address] [place], | | | | | | [place] [address] | | | | | | [phone] | | | | | | | [...] ISA OSMAN1945MRI CERVICAL | | SPINE WO TVBAGHOA32/31/2013 2:28 PM HISTORY: Degenerative disc disease with [...]
--- OUTSIDE RECORDS SUMMARY | ~2019-12-22 | XMS | Encounter Summary ---
Demographics + + + | Address | [address] | | | [place] [address] | + + + | Home Phone [...] Team Providers + +------+ + | Care Keeper Helper Name | Role | Phone | [...] + + | 11/08/ | Telephone | [facility] | Salvador Jose MD | Other (thoughts on | | 2019 | | VASCULAR SURGERY | [address] | the CT) | | | | [address] | TOY [address] [facility] | | | | | E [place], [place] | [place] [address] | | | | | [address] | [phone] | | | | | [phone] | | | +--------+ + + + [...] leave a ppointment time on voicemail at [phone] elephone Yazmin Alonzo RN - 11/09/2019 3:15 [...] transfer the call to a brandon jane winchman/crane operator was caller made aware that if [...] | | | | TOY [address] [facility] | | | | | | [place] [address] | | | | | | [phone] | | | | | | | | +--------+ + + + + | 03/13/ | Office | Neurology | Veronica, | | | 2019 | Visit | | [address] | | | | | | [address] [place], | | | | | | [place] [address] | | | | | | [phone] | | | | | | | | +--------+ + + + + documented as of this encounter Visit Diagnoses Not on filedocumented in this encounter"
--- OUTSIDE RECORDS SUMMARY | ~2019-12-22 | XMS | Encounter Summary ---
Demographics + + + | Address | [address] | | | [place] [address] | + + + | Home Phone [...] Team Providers + +------+ + | Care Pile Driving Technician Name | Role | Phone | [...] | | | | | Bilateral | [address] | | | | | | | Phone: | | | | | | | [phone] | | | | | | | Fax: | | | | | | | [phone] | | +--------+--------+ + + + + [...] | | | | | Bilateral | [address] | | | | | | | Phone: | | | | | | | [phone] | | | | | | | Fax: | | | | | | | [phone] | | +--------+--------+ + + + + Encounter Details +--------+ + + + + | Date | Type | Department | Care Team | Description | +--------+ + + + + | 12/12/ | Hospital | [facility] | | Carotid stenosis, | | 2019 | Encounter | VASCULAR SURGERY | | right | | | | ULTRASOUND [address] | | | | | [address] | | | | | | [facility] | | | | | | [address] | | | | | | [phone] | | | +--------+ + + + [...] [place] | | | | | | [place] [address] | | | | | | [phone] | | | | | | | | +--------+ + + + + | 03/13/ | Office | Neurology | Veronica, | | | 2019 | Visit | | [address] | | | | | | [address] [facility], | | | | | | [place] [address] | | | | | | [phone] | | | | | | | [...] | Procedure Note | + + | [facility], [id number] - 12/13/2019 11:59 AM PDT | | [...]
--- OUTSIDE RECORDS SUMMARY | ~2019-12-22 | XMS | Encounter Summary ---
Demographics + + + | Address | [address] | | | [place] [address] | + + + | Home Phone [...] Team Providers + +------+ + | Care Associate Consulting Engineer Name | Role | Phone | [...] + | 07/17/ | Refill | [facility] | Haroldo King | Medication Refill | | 2015 | | NEUROSURGERY [address] | [address] | | | | | [address] | [address] [place], [place] | | | | | [place], [place] | [id number] | | | | | [address] | | | | | | [phone] | | | +--------+--------+ + + + [...] | | | | | TOY [address] [facility] | | | | | | [place] [address] | | | | | | [phone] | | | | | | | | +--------+ + + + + | 03/13/ | Office | Neurology | Veronica, | | | 2019 | Visit | | [address] | | | | | | [address] [facility], | | | | | | [place] [address] | | | | | | [phone] | | | | | | | | +--------+ + + + + documented as of this encounter Visit Diagnoses + + | Diagnosis | + + | S/P cervical spinal fusion - Primary Arthrodesis status | + + documented in this encounter"
--- OUTSIDE RECORDS SUMMARY | ~2019-12-22 | XMS | Encounter Summary ---
Demographics + + + | Address | [address] | | | [place] [address] | + + + | Home Phone [...] Team Providers + +------+ + | Care Size Maker Name | Role | Phone | + +------+ + | Dominic Carlin MD | PCP | | + +------+ + Encounter Details +--------+ + + + + | Date | Type | Department | Care Team | Description | +--------+ + + + + | 09/11/ | Hospital | [facility] | Conversion | Pain | | 2016 | Encounter | CONVERSION [address] | Transaction, | | | | | [address] | Provider Unknown | | | | | [place] | [phone] | | | | | [address] | | | | | | [phone] | | | +--------+ + + + [...] | | | | | [address] [facility] [place] | | | | | | [place] [address] | | | | | | [phone] | | | | | | | | +--------+ + + + + | 03/13/ | Office | Neurology | Veronica, | | | 2019 | Visit | | [address] | | | | | | [address] [facility], | | | | | | [place] [address] | | | | | | [phone] | | | | | | | [...]
--- OUTSIDE RECORDS SUMMARY | ~2019-12-22 | XMS | Encounter Summary ---
Demographics + + + | Address | [address] | | | [place] [address] | + + + | Home Phone [...] Team Providers + +------+ + | Care Automatic Riveting Machine Operator Name | Role | Phone [...] + + | 12/12/ | Office | [facility] | Salvador Jose MD | Carotid stenosis, | | 2019 | Visit | VASCULAR SURGERY | [address] | symptomatic, with | | | | [address] | [address] [place] | infarction (HCC) | | | | E [place], [place] | [place] [address] | (Primary Dx) | | | | [address] | [phone] | | | | | [phone] | | | +--------+---------+ + + + [...] Salvador Jose MD - 12/13/2019 10:30 AM [facility] [address] [place] [address] Office: [phone] DATE OF VISIT: 12/13/19 PATIENT NAME: Buck Blel : 1945; AGE: 74 y.o.; Sex:M PHONE NUMBER: ; ; ; PHYSICIAN: Salvador Jose MD PRIMARY CARE / REFERRING PHYSICIAN: No ref. 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 Hisdiagnosis and prognosiswas reviewed withVeronica Jimenez, nurse practiti nerissa and oil field caser at [facility]. Given his recurrent dizzines s and [...] Patient understands and is agreeable. Dictation software, [employer] used which may contain error for similar [...] | | | | TOY [address]til[address] [facility] | | | | | | [place] [address] | | | | | | [phone] | | | | | | | | +--------+ + + + + | 03/13/ | Office | Neurology | Veronica, | | | 2019 | Visit | | [address] | | | | | | [address] [place], | | | | | | [place] [address] | | | | | | [phone] | | | | | | | | +--------+ + + + + documented as of this encounter Visit Diagnoses + + | Diagnosis | + + | Carotid stenosis, symptomatic, with infarction (HCC) - Primary Occlusion and stenosis | | of carotid artery with cerebral infarction | + + documented in this encounter
--- OUTSIDE RECORDS SUMMARY | ~2019-12-22 | XMS | Encounter Summary ---
Demographics + + + | Address | [address] | | | [place] [address] | + + + | Home Phone [...] Providers + +------+ + | Care Network Intelligence Analyst Name | Role | Phone | [...] | | [address] | [place] [address] | | | | | [place] | [phone] | | | | | [address] | | | | | | [phone] | | | +--------+ + + + [...] | | | | | TOY [address] [facility] | | | | | | [place] [address] | | | | | | [phone] | | | | | | | | +--------+ + + + + | 03/13/ | Office | Neurology | Veronica, | | | 2019 | Visit | | [address] | | | | | | [address] [facility], | | | | | | [place] [address] | | | | | | [phone] | | | | | | | | +--------+ + + + + documented as of this encounter Visit Diagnoses Not on filedocumented in this encounter"
--- OUTSIDE RECORDS SUMMARY | ~2019-12-22 | XMS | Encounter Summary ---
Demographics + + + | Address | [address] | | | [place] [address] | + + + | Home Phone [...] Providers + +------+ + | Care Product Development Carpenter Name | Role | Phone | [...] [place] | | | | | | [address] | | | | | | [phone] | | | +--------+ + + + [...] | | | | | | [address] | | | | | | [place] [address] | | | | | | [phone] | | | | | | | | +--------+ + + + + | 03/13/ | Office | Neurology | Veronica, | | | 2019 | Visit | | [address] | | | | | | [address] [place], | | | | | | [place] [address] | | | | | | [phone] | | | | | | | | +--------+ + + + + documented as of this encounter Visit Diagnoses Not on filedocumented in this encounter"
--- OUTSIDE RECORDS SUMMARY | ~2019-12-22 | XMS | Encounter Summary ---
Demographics + + + | Address | [address] | | | [place] [address] | + + + | Home Phone [...] Providers + +------+ + | Care Dimension Specification Inspector Name | Role | Phone | [...] + + | 07/26/ | [facility] | [facility] | Wes Weber MD | C3-4, C4-5, C5-6, | | 2014 | | [facility] OR [facility] OP | [address] | C6-7 Anterior | | | | [address] | [place] [address] | Cervical Discectomy | | | | NARCISO Tee | [phone] | Fusion | | | | [address] | | | | | | [phone] | | | +--------+---------+ + + + [...] might be differen t from the original. [facility] NEUROSURGERY DISCHARGE SUMMARY Patient Name: Buck [...] Care Everywhere.CERVICAL FUSION , DISCHARGE INSTRUCTIONS FOR ([place] ISLANDER)documented in this encounter Medications at Time of [...] MD - 07/26/2014 9:[address] [facility]ORY [...] by: Wes Weber MD 07/26/2014 9:45 [facility] Haroldo Bee PA - 07/11/2014 9:18 AM PST GINO Ponce [address] [facility], [address] [place] [address] FAX: NEUROSURGERY HISTORY AND PHYSICAL EXAMINATION CHIEF [...] has no apparent deficits with short or long term care social worker memory. CRANIAL NERVES: II: Acuity is intact. [...] Intrinsics 5 4 Ulnar Intrinsics 5 4 Human Resources Operations Director Strength 5 4 Hip Flexion 4 4 [...] rolled OOB with no (A). Donns "B" [place] collar but needs help to tighten it [...] prior to discha rge for ed. On [place] collar and precautions. Planned Interventions:Planned Therapy Interventions: ADL retraining, orthotic fitting/train ing, transfer training Patient Status/Goals Reflects last filed data of patient status; may be from multiple contributors. Basic ADLs Instrumental ADLs Activity Tolerance Cognitive Linguistics Cognitive Tests Bed Mobility Bed Mobility Skill: Rolling/Turning, PT Eval Level Of [place]: independent Bed Mobility Skill: Sit To Supine, Rehab Eval [place]: Sit/Supine: independent Bed Mobility Skill: Supine To Sit, Rehab Eval [place]: Supine/Sit: independent Transfers Transfer Skill: Bed To Chair/Chair To Bed, Rehab Eval Type of Transfer: step pivot [place]: Bed To Chair: modified independent Physical Assist/Nonphysical Assist: Bed To Chair: (.) Assistive Device: 2 wheeled walker Goal Transfers Bed to Chair/Chair to Bed Bed to Chair/Chair to Bed STG Status: Met STG Transfers Bed to Chair/Chair to Bed: modified independent Transfer Skill: Sit To Stand, Rehab Eval [place]: Sit/Stand: modified independent Physical Assist/Nonphysical Assist: Sit/Stand: (.) Assistive Device For Transfer: Sit/Stand: 2 wheeled walker Goal Transfers Sit to Stand Sit to Stand STG Status: Met STG Transfers Sit to Stand : modified independent Transfer Skill: Stand To Sit, Rehab Eval [place]: Stand/Sit: modified independent Physical Assist/Nonphysical Assist: Stand/Sit: [...] Summary & Review . Outcome: Progressing This window caser visited with this patient who had [...] Mobility Skill: Rolling/Turning, PT Eval [place]: independent Bed Mobility Skill: Sit To Supine, Rehab Eval [place]: Sit/Supine: independent Bed Mobility Skill: Supine To Sit, Rehab Eval [place]: Supine/Sit: independent Transfers Transfer Skill: Bed To Chair/Chair To Bed, Rehab Eval Type of Transfer: step pivot [place]: Bed To Chair: modified independent Physical Assist/Nonphysical Assist: Bed To Chair: (.) Assistive Device: 2 wheeled walker Goal Transfers Bed to Chair/Chair to Bed Bed to Chair/Chair to Bed STG Status: Met STG Transfers Bed to Chair/Chair to Bed: modified independent Transfer Skill: Sit To Stand, Rehab Eval [place]: Sit/Stand: modified independent Physical Assist/Nonphysical Assist: Sit/Stand: (.) Assistive Device For Transfer: Sit/Stand: 2 wheeled walker Goal Transfers Sit to Stand Sit to Stand STG Status: Met STG Transfers Sit to Stand : modified independent Transfer Skill: Stand To Sit, Rehab Eval [place]: Stand/Sit: modified independent Physical Assist/Nonphysical Assist: Stand/Sit: (.) Assistive Device For Transfer: Stand/Sit: 2 wheeled walker Goal Transfers Stand to Sit Stand to Sit STG Status: Met STG Transfers Stand to Sit: modified independent Transfer Safety Analysis, Rehab Eval Transfer Safety Concerns Noted: decreased balance during turns, decreased proprioception Impaired Transfers: impaired balance Gait Gait Skills, PT Eval [place]: Gait: modified independent Physical Assist/Nonphysical Assist: Gait: (.) Assistive Device For Transfer: Gait: 2 wheeled walker Gait Distance: 300 feet Goal Gait Gait STG Status: Met STG Gait: modified independent STG Gait Device: 2 wheeled walker STG Gait Distance: 300 feet Stairs Stair, Performance Number Of Stairs: 4 Stair Railings: present on both sides [place]: modified independent Physical Assist/Nonphysical Assist: verbal cues [...] amts of drainage. lan of Lan Reed, BRUSH STAINER - 07/27/2014 4:29 AM PDTThe patient is [...] Mobility Skill: Rolling/Turning, PT Eval [place]: did not occur today Bed Mobility Skill: Sit To Supine, Rehab Eval [place]: Sit/Supine: did not occur today Bed Mobility Skill: Supine To Sit, Rehab Eval [place]: Supine/Sit: did not occur today Transfers Transfer Skill: Bed To Chair/Chair To Bed, Rehab Eval Type of Transfer: step pivot [place]: Bed To Chair: supervision/set-up Physical Assist/Nonphysical Assist: Bed To Chair: verbal cues, 1 person assist Assistive Device: 2 wheeled walker Goal Transfers Bed to Chair/Chair to Bed Bed to Chair/Chair to Bed STG Status: New STG Transfers Bed to Chair/Chair to Bed: modified independent Transfer Skill: Sit To Stand, Rehab Eval [place]: Sit/Stand: supervision/set-up Physical Assist/Nonphysical Assist: Sit/Stand: verbal cues Assistive Device For Transfer: Sit/Stand: 2 wheeled walker Goal Transfers Sit to Stand Sit to Stand STG Status: New STG Transfers Sit to Stand : modified independent Transfer Skill: Stand To Sit, Rehab Eval [place]: Stand/Sit: supervision/set-up Physical Assist/Nonphysical Assist: Stand/Sit: verbal cues Assistive Device For Transfer: Stand/Sit: 2 wheeled walker Goal Transfers Stand to Sit Stand to Sit STG Status: New STG Transfers Stand to Sit: modified independent Transfer Safety Analysis, Rehab Eval Transfer Safety Concerns Noted: decreased balance during turns, decreased proprioception Impaired Transfers: impaired balance Gait Gait Skills, PT Eval [place]: Gait: supervision/set-up Physical Assist/Nonphysical Assist: Gait: verbal cues Assistive Device For Transfer: Gait: 2 wheeled walker Gait Distance: 300 feet Goal Gait Gait STG Status: New STG Gait: modified independent STG Gait Device: 2 wheeled walker STG Gait Distance: 300 feet Stairs Stair, Performance Number Of Stairs: 4 Stair Railings: present on both sides [place]: supervision/set-up Physical Assist/Nonphysical Assist: verbal cues Assistive [...] thin liquids by straw with no difficulty. DAIRY PRODUCTS MAKER provided education about swallowing post o p. [...] recommendation: no further Speech Therapy Planned Interventions: DAIRY PRODUCTS MAKER Diagnosis: Odynophagia but swallow WNL At bedside, [...] Swallow: Patient will complete swallow evaluation with DAIR[employer] PRODU[employer] MAKER s/p ACS Electronically signed by: Donita Taylor SPEECH PATHO, 07/26/2014 17:17 Start Time: 1640 Stop time: 1703 Duration: 23 minutes 5:1 7 PM PDTOp Note - Wes Weber MD - 07/26/2014 2:02 PM PDT Operative Note Bcuk Bell 69 y.o. male 1945 [id number] Proc. Date 07/26/2014 Preop Dx Cervical spondylosis with myelopathy Cervical stenosis Cervical degenerative disc disease Cervical foraminal stenosis Cervical kyphosis Cervical radiculopathy Postop Dx same Procedure 1. Anterior cervical discectomy and fusion C3-4, C4-5, C5-6, and C6-7 2. Anterior cervical plating C3-7 using [employer] 3. Anterior structural allograft bone C3-4, C4-5, C5-6, and C6-7 4. Microsurgical technique with use of operating microscope Anesthesia General, Dr. Calix Surgeon Surgeon(s) and Role: * Wes Weber MD - Primary Plate Grinder Daniel Bonilla EBL 264 Findings C3-C7 severe [...] allograft prior to insertion was filled with [place] bone. The structural allograft bone was then tamped into place at C3-4, C4-5, C5-6, and C6-7. Anterior cervical plating was then performed by holding a 80 mm [employer] plat e in place over the segments with holding pins. Fluoroscopy was used to confirm its appropr iate positioning and then pilot fuel engineer holes were made in the C3-C7 vertebral [...] signed by: Wes Weber MD 07/26/2014 14:00 [facility] rief Op Note - Chris Weber MD - 07/26/2014 2:00 PM PDTFormatting of this note might be different from the origin al. Brief Operative Note Buck Bell 69 y.o. male 1945 [id number] Proc. Date 07/26/2014 Preop Dx Cervical spondylosis with myelopathy Cervical stenosis Cervical degenerative disc disease Cervical foraminal stenosis Cervical kyphosis Cervical radiculopathy Postop Dx same Procedure 1. Anterior cervical discectomy and fusion C3-4, C4-5, C5-6, and C6-7 2. Anterior cervical plating C3-7 using [employer] 3. Anterior structural allograft bone C3-4, C4-5, C5-6, and C6-7 4. Microsurgical technique with use of operating microscope Anesthesia General, Dr. Calix Surgeon Surgeon(s) and Role: * Wes Weber MD - Primary Plate Grinder Daniel Bonilla EBL 264 Findings C3-C7 severe DDD with large anterior and posterior osteophytes. Complications none Specimens * No specimens in log * Drains Drain/Device Site 07/26/14 1326 #1 Right: cervical spine collapsible closed device (Act alejandro) Insertion Site Appearance clean and dry 07/26/2014 13:54 Drainage Characteristics/Odor serosanguineous 07/26/2014 13:54 Drainage Amount scant 07/26/2014 13:54 Electronically signed by: Wes Weber MD 07/26/2014 14:00 [facility] documented in this encou nter Plan of [...] | | | | | TOY Quiro[facility] | | | | | | [place] [address] | | | | | | [phone] | | | | | | | | +--------+ + + + + | 03/13/ | Office | Neurology | Veronica, | | | 2019 | Visit | | HALI Adams [address] [place], | | | | | | [place] [address] | | | | | | [phone] | | | | | | | [...] + + | Performing | Address | City/State[facility] | Phone Number | [...]
[~2019-12-22 21:47] MED LIST changes: +TYLENOL325 MG PO
--- OUTSIDE RECORDS SUMMARY | 2019-12-22 21:50 | XMS ---
PreManage Notification: ISA OSMAN Security [employer] Events No recent Security Events currently on file CRITERIA MET - [facility] - 2 Visits in 30 Days CARE PROVIDERS Name Unknown Clinic/Center 04/21/2019-Current PHONE: [phone] Rupa has no Care Guidelines for this patient. Care History Medical/Surgical 04/21/2019 [facility] \T\middot;\T\nbsp; PATIENT- [facility] ELIGIBLE \T\middot;\T\nbsp; PLEASE REFER PATIENT TO [facility] FOR NON EMERGENT MEDICAL NEEDS. \T\middot;\ T\nbsp; [facility] CAN SEE PATIENTS SAME DAY FOR APTS IF PATIENT CALLS FIRST THING IN THE MORNING. E.D. VISIT COUNT (12 MO.) [address] Nicole Gutierrez [address] [facility] TOTAL 5 NOTE: Visits indicate total known visits. ED/UCC VISIT TRACKING (12 MO.) 12/22/2019 21:48 [facility] [place] TYPE: Emergency COMPLAINT: - CHEST PAIN 11/26/2019 20:55 [facility] [place] TYPE: Emergency COMPLAINT: - FALL DIAGNOSES: - Other usp (current) drug therapy - Personal history of nicotine dependence - Unspecified injury of head, initial encounter - Personal history of transient ischemic attack (TIA), and cere - Hyperlipidemia, unspecified - Dizziness and giddiness - Striking against or struck by other objects, initial encounte - Essential (primary) hypertension 04/27/2019 08:14 [facility] Nicole STUART TYPE: Emergency DIAGNOSES: - Cervicalgia - Headache - Headache/Neck Pain - Neck Pain 04/20/2019 12:31 [facility] [place] TYPE: Emergency COMPLAINT: - HIGH BLOOD PRESSURE DIAGNOSES: - Hyperlipidemia, unspecified - Other usp (current) drug therapy - Dizziness and giddiness - Personal history of nicotine dependence - Personal history of transient ischemic attack (TIA), and cere - Essential (primary) hypertension 04/17/2019 18:39 [facility] [place] TYPE: Emergency COMPLAINT: - DIZZINESS DIAGNOSES: - Essential (primary) hypertension - Dizziness and giddiness - Personal history of nicotine dependence - Hyperlipidemia, unspecified - Personal history of transient ischemic attack (TIA), and cere INPATIENT VISIT TRACKING (12 MO.) 12/01/2019 09:23 [facility] Matt STUART TYPE: Vascular Surgery DIAGNOSES: - Occlusion and stenosis of right carotid artery [email or web address]
--- NOTE | 2019-12-23 01:45 | NUR ---
PT ARRIVES TO CCU ROOM 127, ADMITTED FOR RIB FX AND HEMOTHORAX. TRANSFERRED TO BED BY SLIDING WITH 2 PERSON ASSIST TO BED. PT IS AWAKE AND OIENTED, ADMISSION DONE. PT REPORTS PAIN ON LEFT SIDE AND AROUND TO BACK. ANSWERS QUESTIONS APPROPRIATELY BUT IS SLEEPY AND FALLS ASLEEP AT TIMES. STATES HE NEEDS TO VOID, 2 PERSON STANDBY ASSIST TO HELP PT STAND AT BEDSIDE TO TRY TO VOID INTO URINAL, HAS SMALL AMOUNT OF URINE MISSED URINAL. PT REPORTS HAVING VERTIGO FOR 5 YEARS AND FALLING FREQUENTLY. DENIES SOB AT THIS TIME. CALL LIGHT IN HAND, PT WANTING TO SLEEP.
--- NOTE | 2019-12-23 02:30 | NUR ---
PT ASSISTED WITH STANDING UP TO VOID, WAS ABLE TO VOID SMALL AMOUNT, MISSED URINAL. REPOSITIONED BACK IN BED, PT SLEEPY, QUICKLY FALLS BACK TO SLEEP. PT WAS PAINFUL WITH SITTING HIMSELF UP AND LYING DOWN BUT ONCE HE ISNT MOVING HE STATES HE IS COMFORTABLE.
--- NOTE | 2019-12-23 03:52 | NUR ---
PT RESTING WITH EYES CLOSED, RESP EVEN AND UNLABORED. RR 16, SPO2 99% ON ROOM AIR AND HR 60'S. CONT TO MONITOR.
--- NOTE | 2019-12-23 04:51 | NUR ---
PT CALLS OUT INSTEAD OF USING CALL LIGHT, NEEDS TO VOID. ASSISTED OUT OF BED AND HELPED TO STAND AT BEDSIDE AND VOID 200ML INTO URINAL THEN REPOSITIONED BACK IN BED.
--- NOTE | 2019-12-23 06:48 | NUR ---
DR HOYT UPDATED REGARDING LOWER BLOOD PRESSURES, ORDER GIVEN FOR D5LR 100ML/HR. DR HOYT ON HIS WAY TO SEE PT NOW.
--- NOTE | 2019-12-23 07:48 | NUR ---
REPORT RECEIVED FROM TARIQ HAND. DR. HOYT AT BEDSIDE. NEW ORDERS PLACE. O2 AT 98% ON ROOM AIR. PT UP TO CHAIR. NO REQUESTS OR COMPLAINTS. CALL LIGHT MARIBETHDIANA FISCHER.
--- NOTE | 2019-12-23 08:00 | NUR ---
X-RAY SERIES ORDERED FROM DR. HOYT. PT REMAINS UP TO CHAIR. ASSESSMENT STARTED, PT DENIES PAIN AND NAUSEA. LESIA, X-RAY TECHNITIAN TO BEDSIDE. PT TRANSFERED TO WHEELCHAIR WITH 2 PERSON ASSIST. PT UNSTEADY ON FEET AND WEEK WITH TRANSFERS. PT TO X-RAY DEPARTMENT WITH THIS RN. PT HAS DIFFICULTY AND IS VERY WEEK WITH POSITOING. LIMITED RANGE OF MOTION WITH LEFT SHOULDER. PT UNABLE TO EXTEND ARM ABOVE HEAD, CANNOT LIFT ELBOW ABOVE SHOULDER. PT REPOSITONED WITH PILLOWS AND HELP FROM THIS RN AND LESIA. PT TRANSERED TO ER BED FOR REPOSITIONING. X-RAYS COMPLETE. PT BACK TO ROOM. UP TO COMODE WITH 2 PERSON ASSIST. PT UNABLE TO HAVE BOWEL MOVMENT EXPECTED. LUPE CARE DONE. UNDERWEAR VERY SOILED. CLEAN DEPENDS IN PLACE. ASSESSMENT FINISHED, LUNG SOUNDS DEMINISHED ON LEFT SIDE. PT CONTINUES TO DENY PAIN. PT REPORTS LIVING AT HOME ALONE AND HAVING "A COUPLE" OF FALLS A DAY. PT STATES HE HAS HIT HIS HEAD "OH YEAH, A COUPLE OF TIMES." PT STATES "I DONT' THINK DO" WHEN ASKED IF HE HAS LOST CONCIOUSNESS. PT DROWSY AT TIMES, AWAKE AT THIS TIME, ORIENTED TO ALL AND ANSWERS QUESTIONS APPROPRIATLY. PT REPORTS NUMBNES IS FEET AND "POOR CIRCULATION." PULSES STRONG. DR. HOYT UPDATED. CT ORDER PLACED. CT NOTIFIED. PT UP TO CHAIR AT THIS TIME. PT REMAINS NPO. NO ADDITIONAL REQUESTS OR COMPLAINTS. CALL LIGHT WITHIN REACH. WARM BLANKETS PROVIDED.
--- NOTE | 2019-12-23 09:30 | NUR ---
IV LINE CONTINUES TO ALARM, IV REASSED, LEAKING NOTED, POSSIBLE INFILTRATION. IV DC'S PER PROTOCOL. NEW IV STARTED PER PROTOCOL IN LEFT HAND. IV FLUIDS RESTARTED. PT UP TO CHAIR, DOZING ON AND OFF. NO ADDITIONAL REQUESTS OR COMPLAINTS. CALL LIGHT WIHTIN REACH.
--- NOTE | 2019-12-23 10:04 | NUR ---
DR. HOYT CALLED WITH UPDATED REGARDING CHEST X-RAY. NEW ORDERS TO DECREASE IV FLUID RATE AND BEGIN REGULAR DIET AFTER HEAD CT IS COMPLETE. PT UPDATED ON PLAN OF CARE. CT CALLED AGAIN, AWAITING SCAN. NO ADDITIONAL REQUESTS OR COMPLAINTS AT THIS TIME. CALL LIGHT WITHIN REACH.
--- NOTE | 2019-12-23 10:19 | NUR ---
PT CALL LIGHT ON. PT REPORTS FEELING COLD AND THAT HE WOULD LIKE TO GET BACK TO BED. 1 PERSON ASSIST BACK TO BED. WARM BLANKETS PROVIDED. CT TECHNITIAN ARRIVED. PT TRANSFERED TO WHEEL CHAIR AND TO CT WITH THIS RN.
--- NOTE | 2019-12-23 10:39 | NUR ---
PT RETUNRED FROM CT. PT UP TO COMODE. VOIDS WITHOUT ISSUE. PT REPORTS 8/ HEADACHE AND LEFT SHOULDER PAIN. SEE MAR FOR MEDICATION GIVEN. IV FLUIDS RESUMED AT SLOWER RATE PER MD ORDER. PT REMAINS NPO AT THIS TIME UNTIL CT SCAN CAN BE READ. PT RESTING IN BED. NO ADDITIONAL REQUESTS OR COMPLAINTS. CALL LIGHT WITHIN REACH.
--- NOTE | 2019-12-23 11:45 | NUR ---
CT REPORT COMPLETE. DR. HOYT CALLED WITH REPORT. VERBAL ORDERS TO TRANSFER PT TO MED/SURG FLOOR AND CONTINUE ALL CURRENT ORDERS WITH TRANSFER. PT UPDATED ON PLAN OF CARE. TENTER FRAME OPERATOR AND MED/SURG SECURITY TESTER NOTIFIED OF TRANSFER ORDERS.
--- NOTE | 2019-12-23 11:57 | NUR ---
REPORT CALLED TO TARIQ PORTER. QUESTIONS ASKED AND ANSWERED. PT TRANSFERED TO MED/SURG FLOOR. ALL BELONGINGS WITH PT. LUNCH ORDER CALLED FOR PT.
--- NOTE | 2019-12-23 12:50 | NUR ---
New admit to the floor. Pt alert and oriented x4, on room air, respirations are even and non labored. Pt denies chest pain at this time. Pt does have rib pain bilat. Vital signs are stable. Pt oriented to room and call light. Per report pt calling staff appropriately; chair alarm placed due to fall precaution. Pt has no needs. Call light within reach. IV fluids; D5LR infusing @ 75ml/hr.
--- NOTE | 2019-12-23 13:08 | EKG ---
[facility] [address] [place] [address] Signed Sinus rhythm with premature atrial complexes Otherwise normal ECG When compared with ECG of 17-APR-2019 19:12, premature atrial complexes are now present Incomplete right bundle branch block is no longer present Confirmed by JOSELITO BRADFORD MD ([id number]) on 12/23/2019 1:07:59 PM Electronically Signed By: JOSELITO BRADFORD MD 12/23/19 1308 PATIENT NAME: ISA OSMAN Electrocardiogram DATE OF : 43 PHYSICIAN: JOSELITO BRADFORD MD REPORT #: [id number] REPORT IS CONFIDENTIAL AND NOT TO BE RELEASED WITHOUT AUTHORIZATION
--- NOTE | 2019-12-23 14:01 | NUR ---
PATIENT SITTING UP IN CHAIR. VITAL SIGNS AND I&O DONE. PATIENT DID NOT VOID DURING THIS PERIOD. RN NOTIFIED. CALL LIGHT WITHIN REACH. NO OTHER NEEDS AT THIS TIME
--- NOTE | 2019-12-23 17:34 | NUR ---
PATIENT SITTING UP IN CHAIR. VITAL SIGNS AND I&O DONE. CALL LIGHT WITHIN REACH. NO OTHER NEEDS AT THIS TIME
--- NOTE | 2019-12-23 17:42 | NUR ---
A&OX4. ON RA, SBA WITH CANE. D5LR@75ML/HR. CALLS STAFF APPROP. DIZZY WITH AMBULATION, UNSTEADY GAIT. RIB PAIN, DENIED PAIN MEDICATION. CPOX.
--- NOTE | 2019-12-23 17:48 | NUR ---
Pt reports 1/10 left rib pain. Pt declined pain medication at this time.
--- NOTE | 2019-12-23 18:32 | NUR ---
CALL LIGHT ANSWERED. PATIENT SITTING UP IN CHAIR. PATIENT GOES TO USE THE BATHROOM. ONE PERSON ASSISTING WITH CANE AND GAIT BELT. PATIENT BACKS TO BED. WARM BLANKET PROVIDED. CALL LIGHT WITHIN REACH. NO OTHER NEEDS AT THIS TIME
--- NOTE | 2019-12-23 19:00 | NUR ---
SHIFT REPORT RECEIVED FROM LAMBERTO POTTER. PT ASLEEP IN BED. IV FLUIDS INFUSING PER ORDER. CALL LIGHT IN REACH. HR SR @ 64.
--- NOTE | 2019-12-23 19:00 | NUR ---
PT AWAKE IN ROOM. SHIFT REPORT RECIEVED FROM RAMON POTTER. IV SECURED WITH TAPE. TELE HR SR @ 64. IV FLUIDS INFUSING PER ORDER. NO OTHER NEEDS AT THIS TIME. CALL LIGHT IN REACH.
--- NOTE | 2019-12-23 20:16 | NUR ---
PT COMPLAINS OF 5/10 PAIN IN HEADACHE, PRN TYLENOL PROVIDED. ASSESSMENT COMPLETED. LUNGS CLEAR IN ALL LOBES EXCEPT DIMINISHED IN LOWER LEFT LOBE. SCATTERED ABRASIONS AND BRUISING NOTED. BOWEL TONES ACTIVE. TELE SR @ 62. IV CDI, WNL, FLUSHED WELL. NUMBNESS IN HANDS AND FEET, CHRONIC. IV FLUIDS INFUSING PER ORDER. NO OTHER NEEDS AT THIS TIME. CALL LIGHT IN REACH.
--- NOTE | 2019-12-23 20:54 | NUR ---
VITALS AND I&OS DONE AND CHARTED. BEDSIDE TABLE AND CALL LIGHT IN REACH. FRESH WATER GIVEN.
--- NOTE | 2019-12-23 21:33 | NUR ---
PT USED THE CALL LIGHT AND ASKED IF I COULD TAKE HIS SOCKS OFF. I WENT INTO HIS ROOM AND DID THAT. HE NEEDS NOTHING ELSE AT THIS TIME.
--- NOTE | 2019-12-23 23:18 | NUR ---
PT CALLS TO ASK FOR HIS BLANKETS TO BE SPREAD OUT. BLANKETS ADJUSTED. NO OTHER NEEDS, CALL LIGHT IN REACH.
--- NOTE | 2019-12-23 23:44 | NUR ---
PT WAS GETTING IRRITATED BECAUSE HE DIDNT WANT TO WEAR HIS TELE. I EXPLAINED TO HIM THAT THE DR ORDERED IT. HE SAID OK
--- NOTE | 2019-12-24 00:32 | NUR ---
WARM BLANKET GIVEN PER PT REQUEST.
--- NOTE | 2019-12-24 01:00 | NUR ---
PT CALLS TO REQUEST HIS BLANKETS BE SPREAD OUT. EDUCATION PROVIDED CONCERNING SELF CARE AND HIS CURRENT ABILITIES. PT FIXES BLANKETS HIMSELF AND MOVES SELF UP IN BED. NO OTHER NEEDS AT THIS TIME. CALL LIGHT IN REACH.
--- NOTE | 2019-12-24 04:02 | NUR ---
PT RESTING IN BED, EYES CLOSED. RR EVEN, UNLABORED HR SR @ 60. CALL LIGHT IN REACH.
--- NOTE | 2019-12-24 06:56 | NUR ---
ASSESSMNET COMPLETED. LUNG SOUNDS CLEAR IN ALL LOBES EXCEPT DIMINISHED IN LOWER LEFT LOBES. SCATTERED ABRASIONS AND BRUISING NOTED. PT DENIES PAIN AT THIS TIME. IV WNL. BOWEL TONES ACTIVE. IV FLUIDS INFUSING PER ORDER. NO OTHER NEEDS AT THIS TIME. CALL LIGHT IN REACH.
--- NOTE | 2019-12-24 07:23 | CONS ---
[facility] [address] [place], [place] [address] Signed DATE OF CONSULTATION: 12/22/2019 CHIEF COMPLAINT: Recurrent ground level falls. HISTORY OF PRESENT ILLNESS: Isa is a 74-year-old gentleman, who has had vertigo for many years even before his stroke back in 2013. He says he has frequent falls. In the house, he will use his walker, but outside he tries to walk independently, because it was difficult to push the walker through the dirt and gravel and so forth. Unfortunately, he does fall fairly frequently, we can see various bruises around his body and lacerations. On 12/21/2019, he fell outside and eventually made his way over to his truck, and he was having some left posterior chest wall pain. When it seemed to get worse, he decided to come to the emergency room the next day. He had called bring him in. Last night, he was evaluated by Dr. Tam. We see clear back in April 2019. He had hemoglobin of 15, but in the ER was 9.7. He had a chest x-ray done and he had some blunting of his left costophrenic angle, but otherwise it seemed okay, certainly no widening to the mediastinum. CT scan of abdomen and pelvis was performed because of the left posterior chest wall pain in relationship to the spleen. Fortunately, the spleen in the rest of his abdomen really is unremarkable. He seems to have a moderate-sized left pleural effusion, probably with some blood in it based on the CT scan. He has a small pneumothorax and he fractured the left ribs 10 and 11 posteriorly. He probably has just a small left inguinal hernia with some fat. Consequently, I was asked to admit him overnight as a general surgeon on-call. He has been fine overnight. He does not complain. His blood pressures have been a little on the low side, but they have been that way much of the night. His repeat hemoglobin this morning was 8.9, so it is generally stable. He sitting up in his chair currently watching TV. PAST MEDICAL HISTORY: Stroke in 2012, chronic vertigo, frequent falls, hypertension, and hyperlipidemia. PAST SURGICAL HISTORY: Left leg surgery, left rotator cuff, appendectomy, nerve in his back, bilateral carpal tunnel release in 2013, and he has had neck surgery and I see the metal in his neck on x-rays. SOCIAL HISTORY: He quit smoking. He does not drink. He still drives. He is and I believe he lives alone. He does use a walker. Sydney Mock is his nurse practitioner. Gauatm Osman, his brother, ), and his sister is Cecy Phillips at ). He told me he is retired from the [employer], having performed various functions. Electronically Signed By: MERCEDES HOYT MD 12/24/19 0723 PATIENT NAME: ISA OSMAN CONSULTATION DATE OF : 43 REPORT #: [id number] PHYSICIAN: MERCEDES HOYT MD PCP: SYDNEY MOCK MICROBIOLOGY LAB ANALYST-Devonte REPORT IS CONFIDENTIAL AND NOT TO BE RELEASED WITHOUT AUTHORIZATION [facility] [address] [place] [id number] Signed FAMILY HISTORY: He said his brother has diabetes. REVIEW OF SYSTEMS: He had 10 systems reviewed, and overall he answered well. He told me the vertigo long before he had the stroke. ALLERGIES: None. MEDICATIONS: 1. Meclizine 25 mg p.o. t.i.d. 2. Lisinopril 20 mg p.o. daily. 3. Tylenol p.r.n. pain. PHYSICAL EXAMINATION: VITAL SIGNS: His blood pressure is running 89 to 131 over 38 to 79, his heart rate is 57 to 89, his respiratory rate is 13 to 22, his temperature is 98.7, and he is 98% to 100% on 2 L nasal cannula. He is 91 kg. GENERAL: Isa is a 74-year-old gentleman, sitting upright in his chair, watching TV. He is alert, awake, and interactive. He is a little hard of hearing, but he does answer well. LUNGS: Generally, clear to auscultation bilaterally. HEART: Regular rate and rhythm, without murmur. ABDOMEN: Generally soft. He is a little tender on his left chest wall. LABORATORY DATA: His white blood cell count is 7.2. In April of 2019, he had hemoglobin 15, on admission it was 9.7, this morning it was 8.9. His platelets were 219, it is now 212. His BUN is 23 and his creatinine 0.97. INR was 1. His liver function tests are negative. Albumin is 3.2 and his COVID is pending. RADIOGRAPHIC STUDIES: Chest x-ray is reviewed and it does show some mild blunting of the left costophrenic angle. No widening of the mediastinum and no obvious fractures of the ribs. The CT scan of the abdomen and pelvis was reviewed, and he appears to have a moderate left pleural effusion, probably with enough density to have blood in it, certainly it could be an effusion with blood and/or just hemothorax itself. He has a small pneumothorax and he has fractured the left ribs 10 and 11 posteriorly. The spleen was unremarkable. He has a small left inguinal hernia containing fat. ASSESSMENT AND PLAN: Isa is a 74-year-old gentleman, who actually fell two days ago outside, where he had to crawl over to get to help pulling self up. It was hard to know whether or Electronically Signed By: MERCEDES HOYT MD 12/24/19 0723 PATIENT NAME: ISA OSMAN CONSULTATION DATE OF : 43 REPORT #: [id number] PHYSICIAN: MERCEDES HOYT MD PCP: SYDNEY MOCK REPORT IS CONFIDENTIAL AND NOT TO BE RELEASED WITHOUT AUTHORIZATION [facility] [address] [place], [place] [address] Signed not he lost consciousness, but he fall so frequently, it is hard to know exactly when he may or may not have injured the ribs, it seems like it would have happened two days ago. At this point, he has been hemodynamically stable, though his blood pressures are on the soft side. We do have him typed and crossed for a couple of units. We may give that to him if he is symptomatic, although it is hard to know since he does have chronic vertigo. In the meantime, we are going to repeat an upright and cross-table lateral chest x-ray to see if the fluid layers out and he may or may not need a chest tube at that point. We will keep him n.p.o. for now. We keep him on his IV fluids and some pain control and we will proceed from there. I have reviewed this with Isa. He has expressed understanding and agrees above plan. Mercedes Hoyt MD ALB/MODL /[id number] cc: Mercedes Hoyt MD Dr. Copies: MERCEDES HOYT MD ~ Electronically Signed By: MERCEDES HOYT MD 12/24/19 0723 PATIENT NAME: ISA OSMAN CONSULTATION DATE OF : 43 REPORT #: [id number] PHYSICIAN: MERCEDES HOYT MD PCP: SYDNEY MOCK REPORT IS CONFIDENTIAL AND NOT TO BE RELEASED WITHOUT AUTHORIZATION
--- NOTE | 2019-12-24 07:27 | NUR ---
Pt awake in bed, alert and oriented x4. Pt on room air, respirations even and non labored. Pt has no distress noted. Personal supplies and call light within reach.
--- NOTE | 2019-12-24 07:39 | NUR ---
PATIENT SITTING UP IN CHAIR. WHITE BOARD UPDATED. CALL LIGHT WITHIN REACH. NO OTHER NEEDS AT THIS TIME
--- NOTE | 2019-12-24 08:49 | NUR ---
PATIENT SITTING UP IN CHAIR. VITAL SIGNS AND I&O DONE. PATIENT COMPLAINS ABOUT CRAMPS ON HIS LEFT HAND. RN NOTIFIED. PATIENT MAYBE WOULD LIKE TO TAKE A SHOWER TODAY IN THE AFTERNOON. CALL LIGHT WITHIN REACH. NO OTHER NEEDS AT THIS TIME
--- NOTE | 2019-12-24 08:54 | NUR ---
IV fluids decreased to 50ml/hr per doc order.
--- NOTE | 2019-12-24 10:35 | NUR ---
Ibuprofen 800mg po admin for reports of 5/10 head pain.
--- NOTE | 2019-12-24 12:48 | NUR ---
PATIENT SITTING UP IN CHAIR. VITAL SIGNS AND I&O DONE. CALL LIGHT WITHIN REACH. NO OTHER NEEDS AT THIS TIME
--- NOTE | 2019-12-24 17:29 | NUR ---
PATIENT RESTING IN BED. VITAL SIGNS AND I&O DONE. CALL LIGHT WITHIN REACH. NO OTHER NEEDS AT THIS TIME
--- NOTE | 2019-12-24 17:34 | NUR ---
Pt tolerated dinner well, resting at this time in bed. Pt has no distress noted, respirations even and non labored. No needs at this time.
--- NOTE | 2019-12-24 19:41 | NUR ---
SHIFT REPORT FROM NURSE NAVARRO. PT LAYING IN BED, ALERT AND ORIENTED. NO REQUESTS AT THIS TIME. CALL LIGHT WITHIN REACH
--- NOTE | 2019-12-24 22:39 | NUR ---
ASSESSMENT COMPLETE. PT WAS SLEEPING THIS NURSE ENTERED THE ROOM. PT REPORTS NO PAIN AT THIS TIME. PT WAS LAYING LEFT LATERAL AND BREATHING WAS UNLABORED. VSS. INFUSION INFUSING ORDERED. ICE WATER REFILLED. NO FURTHER REQUESTS AT THIS TIME. CALL LIGHT WITHIN REACH.
--- NOTE | 2019-12-24 22:45 | NUR ---
HELPED PT TO THE BATHROOM WITH HIS FWW. SHOES PUT ON PER HIS REQUEST. GOT HIM BACK INTO BED. BED ALARM ON. BEDSIDE TABLE AND CALL LIGHT IN REACH. PT NEEDS NOTHING AT THIS TIME.
--- NOTE | 2019-12-25 00:02 | NUR ---
HELPED PT STAND AT THE SIDE OF HIS BED TO USE HIS URINAL. BEDSIDE TABLE AND CALL LIGHT IN REACH. BED ALARM SET.
--- NOTE | 2019-12-25 01:16 | NUR ---
CALL LIGHT ANSWERED. PT REQUESTS TO GET UP AND "WAIT FOR BREAKFAST". PT STATES HE CANT SLEEP AND IS UNCOMFORTABLE. WITH FURTHER DISCUSSION, PT RATES HIS PAIN IN HIS RIBS 7/10. PRN MOTRIN PROVIDED. PT REPOSITIONED. NO FUTHER REQUESTS AT THIS TIME. CALL LIGHT WITHIN REACH.
--- NOTE | 2019-12-25 01:17 | NUR ---
WITH THE HELP OF TARIQ LOPEZ WE BOOSTED AND REPOSITIONED PT IN BED TO HIS COMFORT. BEDSIDE TABLE AND CALL LIGHT IN REACH. PT NEEDS NOTHING MORE AT THIS TIME.
--- NOTE | 2019-12-25 05:45 | NUR ---
BED ALARM SOUNDING, SBA TO VOID AT BEDSIDE. 1PA WITH FWW TO CHAIR. CHAIR ALARM ON. VSS. PERSONAL SUPPLIES AND CALL LIGHT IN REACH. TARIQ LOPEZ IN ROOM FOR ASSESSMENT.
--- NOTE | 2019-12-25 06:04 | NUR ---
PT UP TO VOID AND THEN REQUESTED TO SIT IN CHAIR. ASSESSMENT COMPLETE. PT REPORTS NO PAIN. VSS. LUNG SOUNDS UNCHANGED; DIMINISHED IN LEFT, CLEAR IN RIGHT LOBES. INFUSION INFUSING DIRECTED. CALL LIGHT AND BEDSIDE TABLE WITHIN REACH. CHAIR ALARM
--- NOTE | 2019-12-25 06:06 | NUR ---
PT WAS RESTLESS MOST OF NIGHT. SET OFF BED ALARM NUMEROUS TIMES. PT STATED THAT HIS MIND WAS RACING OVER "ALL HE HAD TO DO AT HOME" AND HE " JUST WANTS OUT OF HERE". VSS. URINE OUTPUT ADEQUATE. LUNG SOUNDS UNCHANGED; DIMINISHED IN LEFT LOBES, CLEAR IN RIGHT LOBES. PT NEEDED PRN MOTRIN ONE TIME THIS SHIFT. IT APPEARED THAT PT ATTRIBUTED PAIN TO "UNABLE TO SLEEP" SINCE WHEN PROMPTED IF HE HURT IN HIS RIBS, PT REPORTED PAIN OF 7/10 HENCE THE MOTRIN. PT IS UP IN CHAIR NOW WITH CHAIR ALARM ON, CALL LIGHT WITHIN REACH, BEDSIDE TABLE WITHIN REACH.
--- NOTE | 2019-12-25 07:40 | NUR ---
PATIENT SLEEPING IN CHAIR. WHITE BOARD UPDATED. CALL LIGHT WITHIN REACH. NO FURTHER NEEDS AT THIS TIME.
--- NOTE | 2019-12-25 07:46 | NUR ---
Pt resting in chair, respirations even and non labored. Pt has no distress noted. Personal supplies within reach. No needs.
[2019-12-25] MEDS ORDERED: ASPIRIN81 MG PO (08:44)
--- NOTE | 2019-12-25 08:44 | NUR ---
CALL LIGHT ANSWERED. PATIENT SITTING UP IN CHAIR. PATIENT USES THE BATHROOM. ONE PERSON ASSISTING WITH WALKER. CALL LIGHT WITHIN REACH. NO OTHER NEEDS AT THIS TIME
[2019-12-25] MEDS ORDERED: NORVASC10 MG PO (08:56)
[2019-12-25] MEDS ORDERED: LIPITOR80 MG PO (08:56)
[2019-12-25] MEDS ORDERED: ALLZITAL 25-321 EACH PO (08:57)
[2019-12-25] MEDS ORDERED: VITAMIN D3125 MCG PO (08:58)
[2019-12-25] MEDS ORDERED: VITAMIN B-12500 MCG PO (08:58)
[2019-12-25] MEDS ORDERED: PROMETHAZINE HC25 M1 PO (09:00)
--- NOTE | 2019-12-25 09:00 | NUR ---
MED REC COMPLETE
--- NOTE | 2019-12-25 09:30 | NUR ---
Spoke with noel Jane flandreau man who lives alone. He plans on dc to home today alone. States he has multiple family members who check on him, he also carries a phone with him and has an emergency alert necklace. He states he has frequent falls in his past. He would like PT to work with him prior to leaving today. Discussed if he has ever had or would like OP PT. He agrees to this. Called and left a message with Dr. Rowe's office requesting an order. Pt denies other needs. He drives and does his own shopping. States he walks extra laps in the store when stopping for exercise.
[2019-12-25] MEDS ORDERED: PERSA-GEL28 GM TOP (09:44)
--- NOTE | 2019-12-25 10:28 | NUR ---
PATIENT SHOWERED AND DRESSED. READY TO DISCHARGE WAITING FOR RIDE. LAST SET OF VITALS DONE AND ALL BELONGINGS GATHERED. CALL LIGHT WITHIN REACH. NO FURTHER NEEDS AT THIS TIME.
--- NOTE | 2019-12-25 13:41 | DS ---
[facility] [address] [place], [place] [address] Signed ADMISSION DATE: 12/23/2019 DISCHARGE DATE: 12/25/2019 FINAL DIAGNOSES: 1. Small left pleural effusion (250 to 350 mL). 2. Left rib fractures, #10 and #11 posteriorly. 3. Left inguinal hernia, asymptomatic. 4. Frequent falls. PROCEDURES: 1. CT scan of brain. 2. CT scan of pelvis. 3. Multiple chest x-rays. HISTORY OF PRESENT ILLNESS: Isa is a 74-year-old gentleman, who apparently lives alone. He said he worked for the [employer], doing various functions over many years. He said he has had trouble with falling for quite some time, but seems to be getting worse. He fell back on 12/21/2019, while outside. He generally uses his walker while inside. He was having increasing pain in the left posterior rib, so we called the ambulance to come to the emergency room for evaluation. He had a small left pleural effusion with probably some blood in it and probably fractured the left 10th and 11th ribs posteriorly. There was question about a small pneumothorax as well. The CT scan of abdomen and pelvis showed that the spleen was unremarkable, but he does have a small left inguinal hernia. He told me it is completely asymptomatic. He is also a bit anemic as well. We repeated his upright and lateral decubitus chest x-ray and the fluid was laid out quite nicely and only measured around 250 to 350 mL. Consequently, that is not enough to place a chest tube. He has actually done well here in the hospital. We have had Physical therapy seeing him. I spoke with him yesterday and this morning and he feels very confident he would go home and independently as he does live alone. We did do a CT scan of his brain while he was here and he has had some old infarcts, but nothing new. We did have the Internal Medicine Service see him as well. No focal findings on neurologic exam. Most likely, it is multifactorial, so he has previous strokes and appears to be some numbness in his feet. He said he has been working on this with his primary care provider. Last night, he was asking to go home and the nurses encouraged him to stay through the night, so we could go home this morning. DISCHARGE PLANS AND MEDICATIONS: Isa will to be discharged home without any new prescriptions. He can follow a regular diet. We have encouraged him to follow up his primary care provider and continue an outpatient evaluation for his episodes of dizziness and falling. There was really no Electronically Signed By: MERCEDES ROWE MD 12/25/19 1341 PATIENT NAME: ISA OSMAN DISCHARGE SUMMARY DATE OF : 43 REPORT #: [id number] PHYSICIAN: MERCEDES ROWE MD PCP: PRUDENCIO MOCK REPORT IS CONFIDENTIAL AND NOT TO BE RELEASED WITHOUT AUTHORIZATION [address] [address] Signed specific workup needed for his two rib fractures and possible small pleural effusion; that will simply resolve on its own. If he has any concerns or questions, he is more than welcome to follow up in my office, otherwise he will follow up with his PCP. He has expressed understanding and agrees above plan. Mercedes Rowe MD ALB/MODL /[id number] cc: PRUDENCIO MOCK, NURSE PRACTITIONER Mercedes Rowe MD Copies: MERCEDES ROWE MD ~ Electronically Signed By: MERCEDES ROWE MD 12/25/19 1341 PATIENT NAME: ISA OSMAN DISCHARGE SUMMARY DATE OF : 43 REPORT #: [id number] PHYSICIAN: MERCEDES ROWE MD PCP: PRUDENCIO MOCK REPORT IS CONFIDENTIAL AND NOT TO BE RELEASED WITHOUT AUTHORIZATION
--- NOTE | 2019-12-26 09:10 | NUR ---
Spoke with Elsa from [facility]. She will speak with provider from [facility] and request OPPT for strengthening. Pt is requesting OP PT. Face sheet, chart notes, dc summary, and PT eval and notes faxed to OP with note stating orders will come from [facility].
== END 2019-12-25 10:34 | disposition home or self-care (01) | DRG 200 ==
LOC: ED 21:47 → CCU 21:49 → MS 21:49 → CCU 12-23 07:54 → MS 12-23 12:30
PROVIDERS: ADMIT Colon & Rectal Surgery
DX: S27.1XXA Traumatic hemothorax, initial encounter (principal); S22.42XA Multiple fractures of ribs, left side, initial encounter for closed fracture; W19.XXXA Unspecified fall, initial encounter; K40.90 Unilateral inguinal hernia, without obstruction or gangrene, not specified as recurrent; R42 Dizziness and giddiness; I10 Essential (primary) hypertension; E78.5 Hyperlipidemia, unspecified; Z86.73 Personal history of transient ischemic attack (TIA), and cerebral infarction without residual deficits; Z87.891 Personal history of nicotine dependence
CPT/HCPCS: 36415; 70450; 71045; 71046; 74177; 80048; 80053; 83735; 84100; 85025; 85610; 85730; 86850; 86900; 86901; 93005; 93010; 97110; 97112; 97162; 99285-25; C9803; G0378; J7121; Q9967

== ENCOUNTER 2021-11-16 09:54 | Emergency (ER) | payer OTHER ==
[~2021-11-16] VITALS: Ht 170.2 cm; Wt 108.9 kg
[~2021-11-16 09:54] MED LIST changes: +ALLZITAL 25-321 EACH PO; +ASPIRIN81 MG PO; +LIPITOR80 MG PO; +PERSA-GEL28 GM TOP; +PROMETHAZINE HC25 M1 PO; +VITAMIN B-12500 MCG PO; +VITAMIN D3125 MCG PO
[2021-11-16] MEDS ORDERED: MECLIZINE HCL25 MG PO (15:15)
[2021-11-16] MEDS ORDERED: PSEUDOEPHEDRINE30 MG PO (15:15)
--- NOTE | 2021-11-19 11:42 | EKG ---
[facility] [address] [facility] [place] [address] Signed Sinus rhythm with premature atrial complexes Prolonged QT Abnormal ECG When compared with ECG of 22-DEC-2019 21:54, No significant change was found Confirmed by WINSTON BURKS MD ([id number]) on 11/19/2021 11:42:04 AM Electronically Signed By: WINSTON BURKS MD 11/19/21 1142 PATIENT NAME: ISA OSMAN Electrocardiogram DATE OF : 43 PHYSICIAN: WINSTON BURKS MD REPORT #: [id number] REPORT IS CONFIDENTIAL AND NOT TO BE RELEASED WITHOUT AUTHORIZATION
== END 2021-11-16 15:40 | disposition home or self-care (01) ==
LOC: ED 09:54
DX: H83.01 Labyrinthitis, right ear (principal); R33.9 Retention of urine, unspecified; I10 Essential (primary) hypertension; E78.5 Hyperlipidemia, unspecified; Z86.73 Personal history of transient ischemic attack (TIA), and cerebral infarction without residual deficits; Z87.891 Personal history of nicotine dependence; Z79.899 Other long term (current) drug therapy; Z79.82 Long term (current) use of aspirin
CPT/HCPCS: 36415; 51702; 70450; 72170; 74018; 74176; 80048; 81001; 84484; 85025; 93005; 93010; 99284-25; A9270

== ENCOUNTER 2021-11-28 11:04 | Emergency (ER) | payer MEDICARE, OTHER ==
[~2021-11-28] VITALS: Ht 170.2 cm; Wt 109.1 kg
[~2021-11-28 11:04] MED LIST changes: +CIPRO500 MG PO; +FUROSEMIDE40 MG PO; +PSEUDOEPHEDRINE30 MG PO; -VITAMIN D3125 MCG PO; +VITAMIN D350 MCG PO
--- OUTSIDE RECORDS SUMMARY | 2021-11-28 11:08 | XMS ---
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 Care History Medical/Surgical 04/21/2019 [facility] \T\middot;\T\nbsp; PATIENT- [facility] ELIGIBLE \T\middot;\T\nbsp; PLEASE REFER PATIENT TO [facility] FOR NON EMERGENT MEDICAL NEEDS. \T\middot;\ T\nbsp; [facility] CAN SEE PATIENTS SAME DAY FOR APTS IF PATIENT CALLS FIRST THING IN THE MORNING. E.D. VISIT COUNT (12 MO[address] 2 [facility] TOTAL 2 NOTE: Visits indicate total known visits. ED/UCC VISIT TRACKING (12 MO.) 11/28/2021 11:05 [facility] TYPE: Emergency COMPLAINT: - CATHETER ISSUE 11/16/2021 09:54 [facility] TYPE: Emergency COMPLAINT: - FALL DIAGNOSES: - Retention of urine, unspecified - Hyperlipidemia, unspecified - Dizziness and giddiness - Personal history of transient ischemic attack (TIA), and cerebral infarction without residual deficits - Essential (primary) hypertension - Other termite helper (current) drug therapy - [facility]CI (current) use of aspirin - Labyrinthitis, right ear - Personal history of nicotine dependence INPATIENT VISIT TRACKING (12 MO.) No inpatient visits to display in this time frame [email or web address]
[2021-11-28] MEDS ORDERED: FLOMAX0.4 MG PO (13:53)
== END 2021-11-28 14:08 | disposition home or self-care (01) ==
LOC: ED 11:04
DX: R33.9 Retention of urine, unspecified (principal); Z96.0 Presence of urogenital implants; I10 Essential (primary) hypertension; E78.5 Hyperlipidemia, unspecified; Z86.73 Personal history of transient ischemic attack (TIA), and cerebral infarction without residual deficits; Z87.891 Personal history of nicotine dependence; Z79.899 Other long term (current) drug therapy; Z79.82 Long term (current) use of aspirin
CPT/HCPCS: 99283

== ENCOUNTER 2021-11-29 16:50 | Inpatient (IN) | payer MEDICARE, OTHER ==
[~2021-11-29] VITALS: Ht 170.2 cm; Wt 99.8 kg
[~2021-11-29 16:50] MED LIST changes: +FLOMAX0.4 MG PO
--- OUTSIDE RECORDS SUMMARY | 2021-11-29 17:44 | XMS ---
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 Care History Medical/Surgical 04/21/2019 [facility] \T\middot;\T\nbsp; PATIENT- [facility] ELIGIBLE \T\middot;\T\nbsp; PLEASE REFER PATIENT TO [facility] FOR NON EMERGENT MEDICAL NEEDS. \T\middot;\ T\nbsp; [facility] CAN SEE PATIENTS SAME DAY FOR APTS IF PATIENT CALLS FIRST THING IN THE MORNING. E.D. VISIT COUNT (12 MO.) 3 [facility] TOTAL 3 NOTE: Visits indicate total known visits. 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
--- NOTE | 2021-11-29 20:31 | NUR ---
PATIENT ARRIVED TO THE FLOOR VIA STRETCHER. PATIENT WAS ABLE TO SLIDE ACROSS FROM STRETCHER TO HOSPITAL BED WITH NO ASSISTANCE. PATEINTS VITALS TAKEN AND RECORDED. AKERS IN PLACE AND DRAINAINING YELLOW URINE. PATIENT IS [place]. ADMISSION COMPLETED. IV INFUSING PER ORDER. ALCIDES PRIMARY RN REMAINS IN ROOM.
--- NOTE | 2021-11-29 20:42 | NUR ---
PT ADMITTED TO ROOM 110 AT 2009 FROM ED VIA STRETCHER, HELPED TRANSFER TO BED, COOPERATIV WITH ADMIT ASSESSMENT, ORIENTED TO ROOM, PT FORGETFUL AND YUHAAVIATAM, SLOW RESPONSE. ON ROOM AIR, CLEAR LUNGS, SEEMS TO FAVOR THE USE OF R ARM VS L ARM, INTACT. EDEMA TO LE, VERY DRY SCALY SKI, MYCOTIC NAILS, RED LUPE AREA, F/C RECENTLY INSERTED 2 WEEKS, AGO. YELLOW URINE DRAINING. IV RAC. ORIENTED TO ROOM, CALL LIGHT AND FLUIDS AT BEDSIDE
--- NOTE | 2021-11-29 21:48 | NUR ---
Pt received Kyexalate as per orders.
--- NOTE | 2021-11-30 00:01 | NUR ---
ON ROOM AIR, RESTING, EYES CLOSED, NO DISTRESS, F/C PATENT, NO LEAKAGE NOTED AT THIS TIME. CALL LIGHT AND FLUIDS AT BEDSIDE.
--- NOTE | 2021-11-30 01:44 | NUR ---
pt on room air, drowsy, was incontinent of urine, leakage from tubing end of catherer, water balloon checked, 10cc water in there. cath bag changed. skin care done, attend inplace, no bm at this time, Pt was resistive, even after procedure explained, then calmed down when he was reminder that he was in the hospital he calmed down. call light and fluids at bedside, IVF infusing w/o problems. Bed alarm on.
--- NOTE | 2021-11-30 03:47 | NUR ---
hob elevated, on room air, no s/sx distress. call light and fluids at bedside, f/c patent. no leakage noted. Bed alarm on
--- NOTE | 2021-11-30 05:04 | NUR ---
Pt has slept since admission, tolerated contents of sandwich box, no emesis. IVF infusing w/o problems. received kyexalate per K 5.3. has not had a bm this shift. f/c was leaking at connection site, new urine bag and water balloon checked, no further leakage noted, f/c draining medium yellow urine. scabbed area L buttocks present. open to air. poor skin roshan care , barrier cream and skin care done, whole bedding change done. pt was irritable during procedure, reoriented and calmed down. 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 edema to LE, elevated. forgetful alert to self and place. coop with assessments, MADELEINE
--- NOTE | 2021-11-30 06:56 | NUR ---
Up to bsc, no bm, allevyn to buttocks area,attends in place, f/c patent draining orange colored urine. back to bed 2-3 person heavy assist, weak LE and no c/o lighheadness.
--- NOTE | 2021-11-30 07:20 | NUR ---
Pt is sleeping semi fowlers in bed. RA. Baca. Pt is noted to be comfortable sleeping.
--- NOTE | 2021-11-30 09:40 | NUR ---
Pt ate 100% of breakfast. Baca is draining orange-colored urine (d/t medication). Pt had small BM on the toilet. R inner buttock Allevyn replaced. Pt went back to sleep afterwards.
--- NOTE | 2021-11-30 10:54 | NUR ---
HELPED NURSE WALK PATIENT TO THE BATHROOM. PATIENT USED WALKER. THIS MORNING. HE ALSO WASHED HIS FACE.
--- NOTE | 2021-11-30 14:02 | NUR ---
Pt woke up after afternoon nap. He used the restroom. 1 large soft/formed BM. Afterwards he ate lunch. Pt denies pain. RA. Baca in place and draining.
--- NOTE | 2021-11-30 17:30 | NUR ---
PT WENT TO RESTROOM. WANTED TO STAY IN HIS CHAIR A WHILE LONGER. NO COMPLAINTS OF PAIN OR OTHER NEEDS. VITALS AND I/O'S COMPLETED. CALL LIGHT WITHIN REACH.
--- NOTE | 2021-11-30 18:39 | NUR ---
Pt got up to the bathroom x 1 person assist. Medium formed BM. Void x 1. Pt went back to lie down afterwards. He denies pain/discomfort.B/L legs elevated on a pillow. Stat lock applied to prevent burnett catheter from being tagged on.
--- NOTE | 2021-11-30 19:49 | NUR ---
Pt on room air, lungs dim at bases, dry nonproductive cough noted. no c/o SOB or CP. IVF RAC patent. has had several bm's this am. mild weakness L arm compared to R arm. edema to R LE 2+- L 1+, elevated with pillows. f/c patent draining orange colored urine. no leakage noted at thist aldo. allevyn to gluteal in place. tolerating liquids well, no emesis. uses call light. watching tv at this time.
--- NOTE | 2021-12-01 01:08 | NUR ---
Resting eyes closed, on room air, no s/sx distress, IVF infusing w/o problems. legs elevated, f/c draining yellow urine QS, no leakage noted at this time.
--- NOTE | 2021-12-01 03:50 | NUR ---
pt used call light, stood at edge of bed and walked up towards hob. weakness L arm and leg noted, walked well sba/fww. IVF infusing.
--- NOTE | 2021-12-01 05:50 | NUR ---
pt has slept most of this shift, on room air, no c/o sob with exertion, no CP. c/o back and h/a pain earlier on shift, was medicated with Tylenol, effective. Residual weakness L arm and more mildly L leg, 1pa/fww, unsteady and weak gait at times. [place], flat affect, coop. IVF infusing w/o problems, f/c patent, no leakage noted this shift, Up to [facility] and has had BM's at begining of shift. edema 2+ R leg and 1+ L leg, much improved, elevated. allevyn applied to scabbed over gluteal folds, intact. uses call light, no emesis, tolerating liquids well
--- NOTE | 2021-12-01 07:30 | NUR ---
THIS RN RECEIVED REPORT FROM TARIQ MCGRATH. PATIENT RESTING QUIETLY IN LOW FOWLERS POSITION, EYES CLOSED, RESPIRATIONS ARE REGULAR AND EVEN, AND CALL LIGHT IS IN REACH. PATIENT HAS NO CURRENT CARE NEEDS AT THIS TIME.
--- NOTE | 2021-12-01 08:10 | NUR ---
PATIENT AWAKE AND SAYS HE SLEPT WELL. AM MEDS GIVEN AND VS RECORDED. PATIENT DENIES ANY PAIN OR NAUSEA. AM ASSESSMENT COMPLETE. PATIENT SET UP FOR BREAKFAST AND BREAKFAST HAS ARRIVED. PATIENT HAS NO OTHER CARE NEEDS FROM THIS RN AT THIS TIME. CALL LIGHT IS IN REACH.
[2021-12-01] MEDS ORDERED: HYDROCHLOROTH12.5 M1 PO (08:27)
--- NOTE | 2021-12-01 09:40 | NUR ---
PHILLY BERGMAN CAME AND TOLD THIS RN PATIENT IS UP IN THE BEDSIDE ARMCHAIR AND C/O OF SOME PAIN. THIS RN IN TO SEE PATIENT AND PATIENT SAYS HE IS HAVING SOME LOW BACK PAIN AND LEFT HEEL PAIN. THIS RN EXAMINED LEFT HEEL AND NO INJURIES OR OPEN AREAS NOTED. PATIENT SAYS IT FEELS LIKE IT IS IN THE BONE. 650MG PO TYLENOL GIVEN AND PATIENT IS GOING TO TRY AND REST. CALL LIGHT IS IN REACH.
--- NOTE | 2021-12-01 10:20 | NUR ---
PATIENT BEING INTERVIEWED BY OT AT THIS TIME. PATIENT HAS NO CARE NEEDS FROM THIS RN AT THIS TIME. CALL LIGHT IS IN REACH.
--- NOTE | 2021-12-01 10:49 | NUR ---
PASTOR COBB THE GUMARO IN TO TALK WITH PATIENT.
--- NOTE | 2021-12-01 11:20 | NUR ---
PT PERFORMED BED BATH W/ASSISTANCE FROM TOP LIFT NAILER'S. FULL BED CHANGE. NO COMPLAINTS OF PAIN. CALL LIGHT IN REACH.
--- NOTE | 2021-12-01 11:30 | NUR ---
TAX COMMISSIONER'S JUST FINISHED ADL'S WITH PATIENT INCLUDING CATH CARE. PATIENT REMAINS UP IN THE BEDSIDE ARMCHAIR, CALL LIGHT IN REACH, PATIENT HAS NO OTHER CARE NEEDS AT THIS TIME.
--- NOTE | 2021-12-01 12:26 | NUR ---
THIS RN IN TO SEE PATIENT. PATIENT SAYS HIS PAIN IS GONE AND HE IS COMFORTABLE AT THIS TIME. PATIENT REQUESTED THAT THIS RN HELP PATIENT RECLINE HIS CHHAIR AND THIS WAS DONE AND FEET ELEVATED. PATIENT WANTS TO TAKE A NAP. CALL LIGHT IS IN REACH, ICE WATER REFIULLED, PATIENT HAD NO OTHER CARE NEEDS AT THIS TIME.
--- NOTE | 2021-12-01 12:43 | NUR ---
IN SEEING PATIENT AND GAVE THIS RN A VERBAL ORDER TO DECREASE PATIENT'S IV FLUIDS TO 50MLS/HR AND TO FINISH THE CURRENT IV BAG AND SL PATIENT'S IV. THIS RN DECREASED THE IV RATE TO 50MLS/HR AND TORI PERSONAL CARE ASSISTANT INFORMED OF THIS IV CHANGE. CALL LIGHT IN REACH AND CONTINUES TO TALK WITH PATIENT.
--- NOTE | 2021-12-01 13:27 | NUR ---
PT SEEMS TO BE RESTING, BUT WAKES EASILY TO THE SOUND OF MY VOICE. PT PLEASANT REQUESTED A VISIT FROM THE REGISTERED APPRAISER TOMORROW, BUT NOT TODAY. WILL MAKE HAPPEN.
--- NOTE | 2021-12-01 14:56 | NUR ---
PATIENT AFTERNOON ASSESSMENT COMPLETE. TARIQ PERERA AND THIS RN IN ROOM. PATIENT MOVED HIMSELF UP IN BED AFTER INCONTINENT STOOL IN ATTENDS CHANGED AND NEW LINENS PLACED. RAC IV SITE REINFORCED WITH COBAN AND TAPE. CALL LIGHT IN REACH AND BED IN LOW POSITION.
--- NOTE | 2021-12-01 17:20 | NUR ---
PATIENT'S MEAL TRAY SET UP FOR HIM AND HE IS EATING HIS DINNER. PATIENT DENIES PAIN AND NAUSEA. PATIENT HAS NO OTHER CARE NEEDS AT THIS TIME. CALL LIGHT LEDA FISCHER.
[2021-12-01] MEDS ORDERED: SUDOGEST30 MG PO (17:29)
[2021-12-01] MEDS ORDERED: CIPRO500 MG PO (17:30)
[2021-12-01] MEDS ORDERED: MECLIZINE HCL25 MG PO (17:41)
[2021-12-01] MEDS ORDERED: PLAVIX75 MG PO (17:42)
[2021-12-01] MEDS ORDERED: BACITRACIN28.4 GM TOP (17:44)
[2021-12-01] MEDS ORDERED: XALATAN2.5 ML OU (17:48)
[2021-12-01] MEDS ORDERED: EAR WAX DROPS15 M1 OTIC (17:48)
--- NOTE | 2021-12-01 17:49 | NUR ---
MED REC COMPLETE
--- NOTE | 2021-12-01 18:24 | NUR ---
PATIENT RESTING IN BED WATCHING TV WHILE VISITING WITH HIS SISTER. PATIENT DENIED ANY CARE NEEDS FROM THIS RN AT THIS TIME. CALL LIGHT IS IN REACH.
--- NOTE | 2021-12-01 19:29 | NUR ---
BEDSIDE REPORT RECEIVED FROM OFFGOING RNFRANKIE. PT SITTING UP IN THE CHAIR. DENIES NEEDS AT THIS TIME. CALL LIGHT IN REACH. ROOM IN VIEW OF RN STATION WITH CURTAIN OPEN.
--- NOTE | 2021-12-01 20:10 | NUR ---
PT UTILIZES CALL LIGHT, REQUESTS TO GO TO THE BATHROOM. PT UP FROM CHAIR TO BATHROOM AND BACK TO BED WITH 1 PA AND FWW. PT TOLERATED WELL. PT REPORTS ABD PAIN PRIOR TO USING THE BATHROOM, STATES THIS IS RESOLVED AFTER HAVING LG BM. PT DENIES SOB OR NAUSEA. PT DISORIENTED TO DATE, OTHER PUCKETT ORIENTED. IV FLUSHED WITH 10 ML NS. WNL, PATENT. IVF INFUSING ORDERED. PT DENIES FURTHER NEEDS AT THIS TIME. BED ALARM PLACED FOR SAFTEY. CALL LIGHT IN REACH.
--- NOTE | 2021-12-01 22:00 | NUR ---
PT RESTINGIN BED, WAKES EASILY WHEN PRODUCTION WOOD CRAFTSMAN OPENS THE DOOR. DENIES NEEDS. CALL LIGHT IN REACH. BED ALARM ACTIVE.
--- NOTE | 2021-12-02 01:54 | NUR ---
PT RESTING IN BED WITH EYES CLOSED. DOES NOT WAKE WHILE IV PUMP IS ALARMING AND VETERANS SERVICE REPRESENTATIVE AT BEDSIDE. RESPIRATIONS EVEN AND UNLABORED. PT APPEARS TO BE SLEEPING. CALL LIGHT IN REACH. BED ALARM ACTIVE.
--- NOTE | 2021-12-02 05:05 | NUR ---
PT RESTING IN BED WITH EYES CLOSED. RESPIRATIONS EVEN AND UNLABORED. PT APPEARS TO BE SLEEPING. DOES NOT WAKE WHILE MANAGER UTILIZATION REVIEW AT DOORWAY. CLL LIGHT IN REACH. BED ALARM ACTIVE.
--- NOTE | 2021-12-02 05:47 | NUR ---
BILINGUAL TRAINER TO ROOM FOR IV PUMP ALARMING. PT DOES NOT WAKE WHILE WRTIER AT BEDSIDE. PT ASSESSMENT COMPLETE. PT ANSWERS QUESTIONS, REMAINS DISORIENTED TO DATE. DROWSY THOUGHOUT ASSESSMENT. AKERS CATH DRAINING YELLOW URINE, GOOD UO. ATTENDS IN PLACE FOR STOOL INCONTINENCE. ALLEVYN IN PLACE TO L BUTTOCKS FOR EXCORIATED AREA. IV SL. PT DENIES PAIN, NAUSEA, OR SOB. CALL LIGHT IN REACH. BED ALARM ACTIVE.
--- NOTE | 2021-12-02 07:18 | NUR ---
HAND OFF REPORT GIVEN BY DISTRIBUTION LEAD NURSE. PT SITTING IN RECLINER. ALERT, RESPIRATIONS EVEN AND REGULAR.
--- NOTE | 2021-12-02 08:10 | NUR ---
TO PT ROOM FOR MORNING ASSESSMENT AND MEDICATION ADMINISTRATION. PT IS ALERT, SITTING IN RECLINER. CONVERSANT AND EATING BREAKFAST. AKERS CATHETER DRAININE WELL. IV CDI, FLUSHES WELL. CALL LIGHT WITHIN REACH.
--- NOTE | 2021-12-02 09:22 | NUR ---
THIS RN BACK IN TO TALK WITH PATIENT FOR CM. DISCUSSED WITH THE PATIENT THE NEED FOR A CAREGIVER AT HOME AND THE NEED FOR POSSIBLE PLACEMENT FOR PT REHAB. PATIENT ADAMANT THAT HE WILL NOT BE PLACED ANYWHERE FOR PT REHAB, THAT HE WILL ONLY BE GOING HOME. PT ALSO SAYS THAT [facility] HAS TRIED TO GET HIM CARE GIVERS AT HOME BEFORE AND HE HAS REFUSED AND HE DOES NOT WANT CM TO TRY AND HELP HIM FIND A INSIDE TESTER NOW. PATIENT SAYS HE HAS A BROTHER, SISTER, [id number], AND NEPHEW WHO CHECK IN ON HIM AND HE NEEDS NO OTHER HELP THAN THAT. PATIENT AGREED TO LET ME TALK TO [facility] ABOUT HIS BENIFITS THERE AND TO TALK WITH HIS NVTHNR-AP-AGT OBI DAWSON [phone] ABOUT HIS PLAN FOR DC.
--- NOTE | 2021-12-02 09:43 | NUR ---
TO PT ROOM TO CHECK ON PT. PT IS SITTING IN CHAIR. AKERS CATHETER INTACT AND DRAINING WELL. PT A/O, RESPIRATIONS EVEN AND REGULAR. CALL LIGHT WITHIN REACH. PT AT BEDSIDE TO AMBULATE WITH PATIENT.
--- NOTE | 2021-12-02 10:53 | NUR ---
THIS RN IN FOR CM TO TALK WITH PATIENT. THIS RN INFORMED THE PATIENT THAT [facility] HAS SOME PT SERVICES AND THAT I WOULD LIKE TO TRY AND SET HIM UP FOR SOME THERAPY THERE. PATIENT REFUSED. PATIENT'S SAYS HE HAS BEEN ASSIGNED WITH THEM FOR PT BEFORE AND,"THEY DIDN'T DO ANYTHING TO HELP ME. I DON'T WANT TO DEAL WITH THEM AGAIN." PATIENT HAS REFUSED ALL OFFERS AND SUGGESTIONS FOR HELP THAT MAY BE OBTAINED THROUGH CM SERVICES AT THIS TIME.
--- NOTE | 2021-12-02 11:20 | NUR ---
TO PT ROOM TO CHECK ON PT. PT SITTING IN CHAIR WATCHING TV. A/O, SPEECH CLEAR, RESPIRATIONS EVEN AND REGULAR. AKERS CATHETER INTACT AND DRAINING WELL. DENIES PAIN ATT. CALL LIGHT WITHIN REACH.
--- NOTE | 2021-12-02 12:17 | NUR ---
PT IS ALERT, ORIENTED AND SITTING IN CHAIR.PT IS PLEASANT, WOULD LIKE TO HAVE [facility] VISIT TODAY. WILL MAKE THIS HAPPEN. GOOD VISIT, GAVE BLESSING. I WILL FOLLOW NEEDED
--- NOTE | 2021-12-02 13:00 | NUR ---
PT DISCHARGED VIA WHEELCHAIR. A/O, VS WNL. IV REMOVED. AKERS CATHETER IN PLACE AND DRAINING WELL. EDUCATION PROVIDED.
--- NOTE | 2021-12-02 13:49 | NUR ---
THIS RN CALLED [facility] FOR CM. TALKED WITH MIRELLA CATALAN AND INFORMED HER PATIENT WAS DISCHARGED HOME TODAY AND THAT I WAS LOOKING TO SEE IF SOMEONE WAS AVAILABLE TO GET IN CONTACT WITH THE PATIENT ABOUT COLLECTING SOCIAL SECURITY, AND THAT IT HAD BEEN RECOMMENDED TO PATIENT TO HAVE SOME PT REHAB ON DC, BUT THAT PATIENT HAD REFUSED THAT. SABINA INFORMED THIS RN PATIENT WAS ON A LIST FOR ELDERS THAT THE [place] HAS CONCERNS ABOUT AND THAT THEIR ELDER TANK HOOP BENDER MONSERRAT GIRON GOES AND CHECKS ON THE PATIENT 3 TIMES A WEKK AND TAKES HIM MEALS. ALSO SAYS MOST OF THE PATIENT'S FAMILY LIVES ON THE SAME STREET AND THERE ARE ACCESSABLE MOST OF THE TIME AND TIME TAKE CARE OF THE PATIENT WELL. SAIS SHE WOULD REACH OUT TO MONSERRAT GIRON TO WORK WITH THE PATIENT ON SOCIAL SECURITY AND THEY WOULD TALK TO THE PATIENT ABOUT GETTING AN EVAL TO GET SOME PHYSICAL THERAPY THROUGH [facility].
== END 2021-12-02 13:00 | disposition home or self-care (01) | DRG 683 ==
LOC: ED 16:50 → MS 19:50 → EDSEX 19:50 → MS 12-02 13:00
PROVIDERS: ADMIT Internal Medicine; ATTEND Internal Medicine
DX: N17.9 Acute kidney failure, unspecified (principal); M62.82 Rhabdomyolysis; Z20.822 Contact with and (suspected) exposure to COVID-19; E87.5 Hyperkalemia; R29.6 Repeated falls; I10 Essential (primary) hypertension; N40.1 Benign prostatic hyperplasia with lower urinary tract symptoms; R33.8 Other retention of urine; E86.0 Dehydration; E78.5 Hyperlipidemia, unspecified; Z86.73 Personal history of transient ischemic attack (TIA), and cerebral infarction without residual deficits; Z87.891 Personal history of nicotine dependence; Z90.49 Acquired absence of other specified parts of digestive tract; Z98.890 Other specified postprocedural states; Z79.2 Long term (current) use of antibiotics; Z79.899 Other long term (current) drug therapy
CPT/HCPCS: 36415; 80048; 80053; 81001; 82553; 82565; 83735; 84100; 84520; 84550; 85025; 87502; A9270; C9803; J7030; J7121; U0003

== ENCOUNTER 2022-04-07 13:06 | Emergency (ER) | payer OTHER, MEDICARE ==
[~2022-04-07] VITALS: Ht 170.2 cm; Wt 99.9 kg
[~2022-04-07 13:06] MED LIST changes: +BACITRACIN28.4 GM TOP; +EAR WAX DROPS15 M1 OTIC; +HYDROCHLOROTH12.5 M1 PO; +PLAVIX75 MG PO; +SUDOGEST30 MG PO; +XALATAN2.5 ML OU
[2022-04-07] MEDS ORDERED: LASIX20 MG PO (18:31)
[2022-04-07] MEDS ORDERED: K-TAB10 MEQ PO (18:31)
--- NOTE | 2022-04-07 21:33 | EKG ---
[facility] [address] [place] [address] Signed Sinus rhythm with premature atrial complexes Otherwise normal ECG When compared with ECG of 16-NOV-2021 10:32, No significant change was found Confirmed by Rosalina Mtz MD () on 04/07/2022 9:33:39 PM Electronically Signed By: ROSALINA MTZ MD 04/07/222132 PATIENT NAME: ISA OSMAN Electrocardiogram DATE OF : 43 PHYSICIAN: ROSALINA MTZ MD REPORT #: [id number] REPORT IS CONFIDENTIAL AND NOT TO BE RELEASED WITHOUT AUTHORIZATION
== END 2022-04-07 19:46 | disposition home or self-care (01) ==
LOC: ED 13:06
DX: R53.1 Weakness (principal); Z20.822 Contact with and (suspected) exposure to COVID-19; W01.10XA Fall on same level from slipping, tripping and stumbling with subsequent striking against unspecified object, initial encounter; I10 Essential (primary) hypertension; E78.5 Hyperlipidemia, unspecified; Z86.73 Personal history of transient ischemic attack (TIA), and cerebral infarction without residual deficits; Z87.891 Personal history of nicotine dependence; Z79.899 Other long term (current) drug therapy
CPT/HCPCS: 36415; 70450; 71045; 72125; 73502; 80053; 81001; 82553; 83735; 84484; 85025; 87502; 93005; 93010; 96374; 99285-25; A9270; C9803; J1940; U0003

== ENCOUNTER 2022-04-08 11:26 | Observation (INO) | payer MEDICARE, OTHER ==
[~2022-04-08] VITALS: Ht 170.2 cm; Wt 98.0 kg
[~2022-04-08 11:26] MED LIST changes: +K-TAB10 MEQ PO; +LASIX20 MG PO
--- OUTSIDE RECORDS SUMMARY | 2022-04-08 11:28 | XMS ---
PreManage Notification: ISA OSMAN Security Research Quality Assurance Specialist Events No recent Security Events currently on file CRITERIA MET - [facility] - 2 Visits in 30 Days CARE PROVIDERS [facility] 04/21/2019-[facility] PHONE: [phone] Rupa has no Care Guidelines for this patient. Care History Medical/Surgical 04/21/2019 [facility] \T\middot;\T\nbsp; PATIENT- [facility] ELIGIBLE \T\middot;\T\nbsp; PLEASE REFER PATIENT TO [facility] FOR NON EMERGENT MEDICAL NEEDS. \T\middot;\ T\nbsp; [facility] CAN SEE PATIENTS SAME DAY FOR APTS IF PATIENT CALLS FIRST THING IN THE MORNING. E.D. VISIT COUNT (12 MO.) 5 [facility] TOTAL 5 NOTE: Visits indicate total known visits. 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 - Other watermaster (current) drug therapy - Hyperlipidemia, unspecified - Retention of urine, unspecified - Personal history of transient ischemic attack (TIA), and cerebral infarction without residual deficits - Presence of urogenital implants - Personal history of nicotine dependence - Essential (primary) hypertension 11/16/2021 09:54 [facility] TYPE: Emergency COMPLAINT: - FALL DIAGNOSES: - Other watermaster (current) drug therapy - Personal history of transient ischemic attack (TIA), and cerebral infarction without residual deficits - Hyperlipidemia, unspecified - Personal history of nicotine dependence - 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 TYPE: Medical Surgical COMPLAINT: - ACUTE KIDNEY INJURY DIAGNOSES: - Other specified postprocedural states - Other specified postprocedural states - Rhabdomyolysis - Contact with and (suspected) exposure to COVID-19 - Acquired absence of other specified parts of digestive tract - Personal history of transient ischemic attack (TIA), and cerebral infarction without residual deficits - Benign prostatic hyperplasia with lower urinary tract symptoms - Essential (primary) hypertension - Acquired absence of other specified parts of digestive tract - Hyperlipidemia, unspecified - Contact with and (suspected) exposure to COVID-19 - extermination supervisor (current) use of antibiotics - Other usp (current) drug therapy - Hyperkalemia - Personal history of nicotine dependence - Acute kidney failure, unspecified - FCI (current) use of antibiotics - Personal history of nicotine dependence - Other watermaster (current) drug therapy - Rhabdomyolysis - Dehydration - Benign prostatic hyperplasia with lower urinary tract symptoms - Other retention of urine - Essential (primary) hypertension - Personal history of transient ischemic attack (TIA), and cerebral infarction without residual deficits - Repeated falls - Hyperkalemia - Other retention of urine - Hyperlipidemia, unspecified - Dehydration - Repeated falls [email or web address]
--- NOTE | 2022-04-08 15:48 | EKG ---
[facility] [address] [place] [address] Signed Sinus rhythm with premature atrial complexes Otherwise normal ECG When compared with ECG of 07-APR-2022 14:09, No significant change was found Confirmed by Rosalina Mtz MD () on 04/08/2022 3:48:28 PM Electronically Signed By: ROSALINA MTZ MD 04/08/22 1548 PATIENT NAME: ISA OSMAN Electrocardiogram DATE OF : 43 PHYSICIAN: ROSALINA MTZ MD REPORT #: [id number] REPORT IS CONFIDENTIAL AND NOT TO BE RELEASED WITHOUT AUTHORIZATION
== END 2022-04-10 16:55 | disposition home or self-care (01) ==
LOC: ED 11:26 → MS 11:27
PROVIDERS: ADMIT Family Medicine; ATTEND Family Medicine
DX: M62.82 Rhabdomyolysis (principal); R51.9 Headache, unspecified; H93.19 Tinnitus, unspecified ear; R42 Dizziness and giddiness; R53.1 Weakness; R11.0 Nausea; I11.0 Hypertensive heart disease with heart failure; I50.9 Heart failure, unspecified; I87.8 Other specified disorders of veins; E66.01 Morbid (severe) obesity due to excess calories; Z86.73 Personal history of transient ischemic attack (TIA), and cerebral infarction without residual deficits; Z79.02 Long term (current) use of antithrombotics/antiplatelets; Z91.81 History of falling; Z87.891 Personal history of nicotine dependence; Z20.822 Contact with and (suspected) exposure to COVID-19; Z68.34 Body mass index [BMI] 34.0-34.9, adult
CPT/HCPCS: 36415; 71045; 80048; 80053; 81001; 82553; 83605; 83735; 83880; 84100; 85025; 87040; 87088; 87449; 87899; 93005; 93010; A9270; C9803; J1650; J7030; U0003

== ENCOUNTER 2022-07-08 15:09 | Inpatient (IN) | payer MEDICARE, OTHER ==
[~2022-07-08] VITALS: Ht 170.2 cm; Wt 99.2 kg
[~2022-07-08 15:09] MED LIST changes: +CEFDINIR300 MG PO; +NYSTATIN1 EAC2 TOP
--- NOTE | 2022-07-09 07:20 | EKG ---
[facility] [address] [place] [address] Signed Sinus rhythm with premature atrial complexes Otherwise normal ECG When compared with ECG of 08-APR-2022 11:42, T wave inversion no longer evident in Inferior leads Confirmed by JOSELITO BRADFORD MD ([id number] on 07/09/2022 7:19:59 AM Electronically Signed By: JOSELITO BRADFORD MD 07/09/22719 PATIENT NAME: ISA OSMAN Electrocardiogram DATE OF : 43 PHYSICIAN: JOSELITO BARDFORD MD REPORT #: [id number] REPORT IS CONFIDENTIAL AND NOT TO BE RELEASED WITHOUT AUTHORIZATION
[2022-07-09] MEDS ORDERED: MECLIZINE HCL25 M1 PO (14:57)
[2022-07-09] MEDS ORDERED: EXCEDRIN EXTRA1 EAC1 PO (14:57)
[2022-07-09] MEDS ORDERED: BACITRACIN28.4 GM TOP (14:58)
== END 2022-07-15 12:55 | DRG 557 ==
LOC: ED 15:09 → MS 19:59
PROVIDERS: ADMIT Internal Medicine; ATTEND Internal Medicine
DX: M62.82 Rhabdomyolysis (principal); G93.41 Metabolic encephalopathy; N17.9 Acute kidney failure, unspecified; R55 Syncope and collapse; Z20.822 Contact with and (suspected) exposure to COVID-19; F03.90 Unspecified dementia, unspecified severity, without behavioral disturbance, psychotic disturbance, mood disturbance, and anxiety; Z91.14 Patient's other noncompliance with medication regimen; I10 Essential (primary) hypertension; E78.5 Hyperlipidemia, unspecified; E86.0 Dehydration; M54.2 Cervicalgia; Z87.891 Personal history of nicotine dependence; Z98.890 Other specified postprocedural states; Z86.73 Personal history of transient ischemic attack (TIA), and cerebral infarction without residual deficits; Z79.899 Other long term (current) drug therapy; W18.39XA Other fall on same level, initial encounter; Y92.019 Unspecified place in single-family (private) house as the place of occurrence of the external cause
CPT/HCPCS: 36415; 70496; 70498; 71045; 72170; 73030; 80048; 80053; 81001; 82150; 82553; 83605; 83690; 84484; 85025; 85610; 86850; 86900; 86901; 93005; 93010; 97110; 97116; 97162; 97165; 97530; 97535; A9270; C9803; G0480; J7030; Q9967; U0003